=== PATIENT | female | born 1950 ===

== ENCOUNTER 2017-09-17 18:06 | Emergency (ER) | payer MEDICARE ==
[2017-09-17 18:16] VITALS: BMI 32.9
[2017-09-17 18:24] VITALS: BP 132/75; PULSE 76; RESP 18; TEMP 97.9; O2SAT 97
--- NOTE | 2017-09-17 18:42 | ED PDOC ---
Arrival/HPI - General Chief Complaint: Abnormal Skin Integrity Time Seen by Provider: 09/17/17 18:37 Historian: Patient, Family - History of Present Illness Narrative History of Present Illness (Text): 09/17/17 18:51 67 yo female come in accompanied by family member for evaluation of itchy, burning rash gradually developed to left chest/shoulder and upper back for past 6 days. As per family, pt was seen in [facility] 6 days ago due to hypoglycemia " and them had few pimples", on discharges received Rx: Hydrocortisone topical oitm and Benadryl without improvement in rash. Today, noted rash spread more over left upper back associated with some neck swelling, also c/o diffuse left sided neck pain Otherwise, pt and family denies fever, chills, severe headache, dizziness, drooling, eye involvement, blurry vision, denies focal deficits, CP, SOB, dyspnea, diaphoresis, abd. pain, N/V/D, denies any other active complaints. Ambulate to Ed for evaluation, appears in pain. Time/Duration: < week Past Medical History - Provider Review Nursing Documentation Reviewed: Yes - Travel History Have you recently traveled outside [place] w/in the past 3 mons?: No If Yes, travel location?: [facility] [place] - Infectious Disease Hx of Infectious Diseases: None - Tetanus Immunization Tetanus Immunization: Unknown - Cardiac Hx Cardiac Disorders: Yes Hx Hypertension: Yes - Pulmonary Hx Respiratory Disorders: No - Neurological Hx Neurological Disorder: No - HEENT Hx HEENT Disorder: No - Renal Hx Renal Disorder: No - Endocrine/Metabolic Hx Endocrine Disorders: Yes Hx Diabetes Mellitus Type 2: Yes (iddm) - Hematological/Oncological Hx Blood Disorders: No - Integumentary Hx Dermatological Disorder: No - Musculoskeletal/Rheumatological Hx Musculoskeletal Disorders: No - Gastrointestinal Hx Gastrointestinal Disorders: No - Genitourinary/Gynecological Hx Genitourinary Disorders: No - Psychiatric Hx Psychophysiologic Disorder: No Hx Substance Use: No - Surgical History Other/Comment: unknown surgery - Anesthesia Hx Anesthesia: Yes Hx Anesthesia Reactions: No - Suicidal Assessment Feels Threatened In Home Enviroment: No Family/Social History - Physician Review Nursing Documentation Reviewed: Yes Family/Social History: No Known Family HX Smoking Status: Never Smoked Hx Alcohol Use: No Hx Substance Use: No Hx Substance Use Treatment: No Allergies/Home Meds Allergies/Adverse Reactions: Allergies No Known Allergies Allergy (Verified 09/17/17 18:16) Home Medications: Home Meds Medication Instructions Recorded Confirmed Carvedilol [Coreg] 6.25 mg PO BID 02/21/16 09/17/17 Glimepiride [amaRYL] 4 mg PO DAILY 02/21/16 09/17/17 Losartan/Hydrochlorothiazide 1 tab PO DAILY 02/21/16 09/17/17 [Losartan Potassium-Hydrochlorothiazide 12.5 M] Furosemide [Lasix] 40 mg PO DAILY 09/17/17 09/17/17 Gabapentin [Neurontin] 100 mg PO BID 09/17/17 09/17/17 Hydroxyzine HCl [Hydroxyzine HCl] 25 mg PO Q8H 09/17/17 09/17/17 Insulin Aspart, Recombinant 0 units SC TID 09/17/17 09/17/17 [Novolog] Omeprazole [Omeprazole] 20 mg PO DAILY 09/17/17 09/17/17 Potassium Chloride [Klor-Con] 20 meq PO DAILY 09/17/17 09/17/17 Review of Systems - Review of Systems Constitutional: Normal Eyes: Normal ENT: Normal Respiratory: Normal Cardiovascular: Normal Gastrointestinal: Normal Genitourinary Female: Normal Musculoskeletal: Normal Skin: Rash Neurological: Normal Endocrine: Normal Hemo/Lymphatic: Adenopathy Psychiatric: Normal Physical Exam Vital Signs Temp Pulse Resp BP Pulse Ox 09/17/17 18:23 97.9 F 76 18 132/75 97 Temperature: Afebrile Blood Pressure: Normal Pulse: Regular Respiratory Rate: Normal Appearance: Positive for: Well-Appearing, Non-Toxic, Uncomfortable Pain Distress: Moderate (pain) Mental Status: Positive for: Alert and Oriented X 3 - Systems Exam Head: Present: Normocephalic Pupils: Present: PERRL Conjunctiva: Present: Normal Ears: Present: NORMAL TM, Normal Canal Mouth: Present: Moist Mucous Membranes, Normal Lips. No: Drooling, Trismus Pharnyx: No: ERYTHEMA, EXUDATE Nose (External): Present: Atraumatic Nose (Internal): Present: Normal Inspection Neck: Present: Trachea Midline. No: JVD, Bruit Respiratory/Chest: Present: Clear to Auscultation, Good Air Exchange. No: Respiratory Distress, Accessory Muscle Use Cardiovascular: Present: Regular Rate and Rhythm, Normal S1, S2. No: Murmurs Abdomen: Present: Normal Bowel Sounds. No: Tenderness, Distention, Peritoneal Signs, Rebound, Guarding Back: No: CVA Tenderness Upper Extremity: Present: Normal ROM. No: Tenderness, Swelling, Deformity Lower Extremity: Present: Normal ROM. No: Edema, Deformity Neurological: Present: GCS=15, Speech Normal, Motor Func Grossly Intact, Normal Sensory Function, Normal Cerebellar Funct, Norm Deep Tendon Reflexes Skin: Present: Warm, Dry, Rashes, Normal Color, Other (maculopapular and vesicular rash on erythematous base, different stages, over Left anterior chest/ shoulder/upper back overlying C7-T1 dermatome, does not cross midline. No evidence of superimposed infection. No cellulitis or mod edema.) Lymphatic: Present: Cervical Adenopathy (Left) Psychiatric: Present: Alert, Oriented x 3, Normal Insight, Normal Concentration Medical Decision Making ED Course and Treatment: 09/17/17 19:05 On re-evaluation, pt is afebrile, hemodynamicaly stable. non-toxic. Tolerate PO well in ED. PulsEOx 97% RA FSBS 204 ENT: no acute findings. Eye: no eye involvement noted, no rash/eye discharges/conjunctivitis. No pain or limitation on extraocular movement. Neck: Supple, (-) JVD, (-) carotid bruits B/L. Lungs: CTA B/L, Bs equal B/L. CVS: (+)S1S2, reg. Abd: benign. Skin: exam c/w Left H.Zoster affecting C7-T1 dermatome, no evidence of superimposed infection. NO cellulitis. Pt and family advised on course of ds. ref. to f/u with PMD in 1-2 days for re-eval. return to ED if any worsening or new changes. - Lab Interpretations Lab Results: Lab Results 09/17/17 18:41: POC Glucose (mg/dL) 204 H - Medication Orders Current Medication Orders: Discontinued Medications Acyclovir (Zovirax) 800 mg PO STAT STA PRN Reason: Protocol Stop: 09/17/17 18:47 Last Admin: 09/17/17 18:56 Dose: 800 mg Gabapentin (Neurontin) 300 mg PO STAT TL PRN Reason: Protocol Last Admin: 09/17/17 19:23 Dose: 300 mg Prednisone (Prednisone Tab) 60 mg PO STAT STA Stop: 09/17/17 18:48 Last Admin: 09/17/17 18:56 Dose: 60 mg Tramadol HCl (Ultram) 50 mg PO STAT STA Stop: 09/17/17 18:46 Last Admin: 09/17/17 18:56 Dose: 50 mg MAR Pain Assessment Document 09/17/17 18:56 HP (Rec: 09/17/17 18:56 HP [id number]) Pain Reassessment Is this a pain reassessment? No Disposition/Present on Arrival - Present on Arrival Any Indicators Present on Arrival: No History of DVT/PE: No History of Uncontrolled Diabetes: No Urinary Catheter: No History of Decub. Ulcer: No History Surgical Site Infection Following: None - Disposition Have Diagnosis and Disposition been Completed?: Yes Diagnosis: Herpes zoster Disposition: HOME/ ROUTINE Disposition Time: 19:11 Patient Plan: Discharge Condition: STABLE Discharge Instructions (ExitCare): Shingles (ED) Print Language: SOUTH SUDANESE Additional Instructions: ENCOURAGE FLUIDS TAKE MEDICATION PRESCRIBED GABAPENTIN PRESCRIBED FOLLOW UP WITH PMD IN 2 DAYS FOR RE-EVALUATION. RETURN TO ED IF ANY WORSENING OR NEW CHANGES. Prescriptions: Bacitracin OINT 1 applic TP BID #1 tube Prednisone [Deltasone] 40 mg PO DAILY #6 tablet traMADol [Ultram] 50 mg PO TID #10 tab Valacyclovir HCl [Valacyclovir HCl] 1,000 mg PO TID #42 tab Referrals: Cornelius Epstein MD [Primary Care Provider] - Follow up with primary Forms: [facility] (Turkmen)
== END 2017-09-17 19:24 | disposition home or self-care (01) ==
LOC: ED 18:06
DX: B02.9 Zoster without complications (principal)

== ENCOUNTER 2018-08-09 16:34 | Inpatient (IN) | payer MEDICARE, OTHER ==
[2018-08-09 16:57] VITALS: BMI 34.7
--- NOTE | 2018-08-09 17:59 | ED PDOC ---
Arrival/HPI - General Chief Complaint: Headache Time Seen by Provider: 08/09/18 16:51 Historian: Patient, Family, Lead Front Desk Agent - History of Present Illness Narrative History of Present Illness (Text): 08/09/18 17:55 Patient is a 68 yo female, past medical history of hypertension, diabetes, chronic kidney disease, anemia, shingles, presents to the Emergency Department with right sided "body" pain for past three weeks. Patient states she began to experience pain to her right leg, right side of abdomen and chest, right arm, right sided headache 3 weeks ago, gradual onset. No associated injury. No fevers. No chills. No rash. States that pain worsened last night before midnight and she has pain with any walking or ambulation. Patient and deny any new facial droop, deny any speech changes and deny any history of altered mental status. Patient denies weakness, states that she has difficulty ambulating due to the pain. crane rigger present for history and physical , Nona Staples RN. Past Medical History - Infectious Disease Hx of Infectious Diseases: None - Tetanus Immunization Tetanus Immunization: Unknown - Reproductive Menopause: Yes - Cardiac Hx Hypertension: Yes - Pulmonary Hx Respiratory Disorders: No - Neurological Hx Neurological Disorder: No - HEENT Hx HEENT Disorder: No - Renal Hx Renal Disorder: No - Endocrine/Metabolic Hx Diabetes Mellitus Type 2: Yes - Hematological/Oncological Hx Blood Disorders: No - Integumentary Hx Dermatological Disorder: No - Musculoskeletal/Rheumatological Hx Falls: No - Gastrointestinal Hx Gastrointestinal Disorders: No - Genitourinary/Gynecological Hx Genitourinary Disorders: No - Psychiatric Hx Psychophysiologic Disorder: No Hx Substance Use: No - Surgical History Other/Comment: unknown surgery - Anesthesia Hx Anesthesia: Yes Hx Anesthesia Reactions: No - Suicidal Assessment Feels Threatened In Home Enviroment: No Family/Social History Smoking Status: Never Smoked Hx Alcohol Use: No Hx Substance Use: No Hx Substance Use Treatment: No Allergies/Home Meds Allergies/Adverse Reactions: Allergies No Known Allergies Allergy (Verified 08/09/18 16:51) Home Medications: Home Meds Medication Instructions Recorded Confirmed Carvedilol [Coreg] 6.25 mg PO BID 09/21/17 08/09/18 Fenofibrate [Fenoglide] 60 mg PO DAILY 09/21/17 08/09/18 Gabapentin [Neurontin] 100 mg PO BID 09/21/17 08/09/18 Labetalol Hydrochloride [Normodyne] 300 mg PO BID 09/21/17 08/09/18 Omeprazole 20 mg PO DAILY 09/21/17 08/09/18 Potassium Chloride [K-Dur 20] 20 meq PO DAILY 09/22/17 08/09/18 Review of Systems - Review of Systems Constitutional: absent: Fatigue, Fevers Eyes: absent: Vision Changes, Eye Pain ENT: absent: Hearing Changes, Sore Throat, Epistaxis, Sinus Congestion Respiratory: absent: SOB, Cough Cardiovascular: Other (right sided pain). absent: Edema, Calf Pain, [place] Gastrointestinal: Abdominal Pain. absent: Nausea, Vomiting, Appetite Changes, Food Intolerance Genitourinary Female: absent: Dysuria, Frequency Musculoskeletal: Back Pain, Neck Pain Skin: absent: Rash, Cellulitis Neurological: Headache, Gait Changes. absent: Dizziness, Focal Weakness Endocrine: absent: Polyuria Hemo/Lymphatic: absent: Easy Bleeding Psychiatric: absent: Anxiety Physical Exam Vital Signs Reviewed: Yes Vital Signs Temp Pulse Resp BP Pulse Ox 08/09/18 19:54 222/71 H 08/09/18 18:51 74 18 187/72 H 97 08/09/18 16:35 97.7 F 76 18 196/76 H 98 Temperature: Afebrile Blood Pressure: Hypertensive Pulse: Regular Appearance: Positive for: Uncomfortable Pain Distress: Mild Mental Status: Positive for: Alert and Oriented X 3 Finger Stick Blood Glucose: 294 - Systems Exam Head: Present: Atraumatic, Other (facial asymmetry noted although patient and states normal for patient) Pupils: Present: PERRL Extroacular Muscles: Present: EOMI Conjunctiva: No: Injected Ears: No: Erythema Mouth: Present: Moist Mucous Membranes Pharnyx: No: ERYTHEMA, EXUDATE, Muffled/Hoarse Voice, Strider Nose (Internal): Present: Normal Inspection, No Active Bleeding Neck: Present: Normal Range of Motion, Paraspinal Tenderness. No: Meningeal Signs Respiratory/Chest: Present: Clear to Auscultation, Tender to Palpation. No: Respiratory Distress Cardiovascular: Present: Regular Rate and Rhythm, Murmurs Abdomen: Present: Tenderness (mild right sided abdominal discomfort, no rebound or guarding), Normal Bowel Sounds. No: Distention, Peritoneal Signs Back: Present: Paraspinal Tenderness. No: CVA Tenderness Upper Extremity: Present: Other (no pain with ROM of shoulder, elbow or wrist, no pulse deficits or edema). No: Cyanosis, Edema Lower Extremity: Present: Edema, Other (pain at hip with ROM of hip, no knee or ankle pain, there is positive right calf pain). No: CALF TENDERNESS Neurological: Present: Motor Func Grossly Intact, Normal Sensory Function, Other (no acute facial droop). No: Gait Normal Skin: Present: Warm. No: Rashes (NO VESICULAR RASH) Lymphatic: No: Cervical Adenopathy Psychiatric: Present: Alert, Normal Insight, Normal Concentration Medical Decision Making ED Course and Treatment: Patient seen and examined with crane rigger, Nona SAUCEDA. Patient on exam has pain with palpation of right sided, but not one focal area is noted to be triggering she has diffuse pain with NO ASSOCIATED WEAKNESS CURRENTLY but limits her ambulation. No trauma. No fever. No joint swelling noted. No rash. No vesicular lesions. She has no chest pain or shortness of breath with exertion. No acute facial droop. Given localized right sided pain ct head orered: 08/09/18 19:08 EXAM: CT Head Without Intravenous Contrast Dictated and Authenticated by: Tyler Arellano MD 08/09/2018 6:42 PM Eastern Time ([place]) IMPRESSION: Normal head/brain CT. Prior CT reviewed from prior admission. CT abdomen pelvis and chest ordered. EXAM: CT Abdomen and Pelvis Without Intravenous Contrast Dictated and Authenticated by: Tyler Arellano MD 08/09/2018 7:41 PM Eastern Time ([place]) IMPRESSION: Air pockets in are identified within the urinary bladder. In the absence of recent instrumentation, UTI with gas-forming organisms cannot be excluded. Otherwise, no acute findings within the abdomen and pelvis. Incidental, surgical, and other non-acute findings are described above. EXAM: CT Chest Without Intravenous Contrast Dictated and Authenticated by: Tyler Arellano MD 08/09/2018 7:41 PM Eastern Time ([place]) IMPRESSION: No acute findings or significant abnormalities within the chest. Incidental and other non-acute findings are described above. On re-exam she is afebrile, cv stable. Cr elevated from previous visit. IV fluids ordered. No active bleeding noted. UTI noted. Given CT findings, will initiate iv antibiotics, admit for serial exams. Will admit to telemetry bed given hypertension. Clonidine ordered. 08/09/18 20:15: Patient states that her PMD is Dr. Cornelius Epstein ([place]) , thus we will admit to classification clerk physician, Dr. Thao, who accepts patient to her service. - Lab Interpretations Lab Results: 08/09/18 15:50 08/09/18 15:50 Lab Results 08/09/18 18:30: pO2 197 H, VBG pH 7.38, VBG pCO2 47.0, VBG HCO3 27.8, VBG Total CO2 29.2 H, VBG O2 Sat (Calc) 99.4 H, VBG Base Excess 2.0, VBG Potassium 4.1, Glucose 287 H, Lactate 1.1, FiO2 21.0, Sodium 141.0, Chloride 112.0 H, Venous Blood Potassium 4.1 08/09/18 18:20: Urine Color Light yellow, Urine Appearance Slight-cloudy, Urine pH 7.0, Ur Specific [place] 1.020, Urine Protein >=300 H, Urine Glucose (UA) 500 H, Urine Ketones Negative, Urine Blood Small H, Urine Nitrate Negative, Urine Bilirubin Negative, Urine Urobilinogen 0.2, Ur Leukocyte Esterase Small H , Urine RBC 1 - 3, Urine WBC Tntc, Ur Epithelial Cells 0 - 2, Urine Bacteria Large 08/09/18 17:32: POC Glucose (mg/dL) 294 H 08/09/18 15:50: Sodium 142, Potassium 3.8, Chloride 107, Carbon Dioxide 26, Anion Gap 12, BUN 44 H, Creatinine 2.1 H, Est GFR ( Amer) 28, Est GFR ( Non-Af Amer) 23, Random Glucose 270 H, Calcium 9.0, Magnesium 1.9, Total Bilirubin 0.2, AST 41 H D, ALT 23, Alkaline Phosphatase 122, Lactate Dehydrogenase 742 H, Total Creatine Kinase 93, Troponin I 0.03 D, Total Protein 6.6, Albumin 3.4, Globulin 3.3, Albumin/Globulin Ratio 1.0 L 08/09/18 15:50: PT 10.8, INR 0.95, APTT 28.1 08/09/18 15:50: WBC 7.9, RBC 3.23 L, Hgb 10.0 L, Hct 30.5 L, MCV 94.4 D, MCH 31.0, MCHC 32.8, RDW 12.9, Plt Count 400, MPV 10.7, Gran % 60.2, Lymph % (Auto) 29.9, [place] % (Auto) 6.0, Eos % (Auto) 3.6, Baso % (Auto) 0.3, Gran # 4.75, Lymph # (Auto) 2.4, [place] # (Auto) 0.5, Eos # (Auto) 0.3, Baso # (Auto) 0.02 - RAD Interpretation Radiology Orders: 08/09/18 17:15 HEAD W/O CONTRAST [CT] Stat CHEST ONE VIEW [RAD] Stat 08/09/18 18:05 CHEST,ABDOMEN, PELVIS W/O CONT [CT] Stat DUPLEX LOWER EXTRM VEIN BILAT [US] Stat 08/09/18 20:04 Hip Right [HIP MIN 2V W/ PELVIS RT] [RAD] Stat 08/09/18 20:05 LS SPINE WITH OBL > 18 YRS OLD [RAD] Stat - EKG Interpretation EKG Interpretation (Text): 08/09/18 18:03 EKG at 1728 normal sinus rhythm rate of [address] elevations Interpreted by ED Physician: Yes Type: 12 lead EKG - Medication Orders Current Medication Orders: Cefepime HCl (Maxipime 2gm) 2 gm in 100 mls @ 100 mls/hr IVPB STAT STA PRN Reason: Protocol Stop: 08/09/18 20:56 Sodium Chloride (Sodium Chloride 0.9%) 1,000 mls @ 100 mls/hr IV .Q10H TL Discontinued Medications Clonidine HCl (Catapres) 0.2 mg PO ONCE STA Stop: 08/09/18 20:08 Disposition/Present on Arrival - Present on Arrival Any Indicators Present on Arrival: Yes History of DVT/PE: No History of Uncontrolled Diabetes: Yes Urinary Catheter: No History of Decub. Ulcer: No History Surgical Site Infection Following: None - Disposition Have Diagnosis and Disposition been Completed?: Yes Diagnosis: Urinary tract infection, Abdominal pain, Leg pain, right, Renal insufficiency, Hypertension Disposition: HOSPITALIZED Disposition Time: 20:03 Patient Plan: Admission Patient Problems: Current Active Problems Problem Status Onset Abdominal pain Acute Hypertension Acute Leg pain, right Acute Renal insufficiency Acute Urinary tract infection Acute Condition: FAIR Referrals: Cornelius Epstein MD [Primary Care Provider] - Follow up with primary Forms: [employer] ([place])
[2018-08-09 18:25] LABS: BASO # 0.02 K/mm3 (0.0-2.0); BASO % 0.3 % (0.0-3.0); EOS # 0.3 (0.0-0.7); EOS % 3.6 % (1.5-5.0); GRAN # 4.75 (1.4-6.5); GRAN % 60.2 % (50.0-68.0); LYMPH # 2.4 (1.2-3.4); LYMPH % 29.9 % (22.0-35.0); MEAN CELL VOLUME 94.4 fl (80.0-105.0); MEAN CORPUSCULAR HGB CONC 32.8 g/dl (31.0-37.0); MEAN PLATELET VOLUME 10.7 fl (7.0-11.0); MONO # 0.5 (0.1-0.6); RBC 3.23 10^6/uL (3.5-6.1); RED CELL DISTRIBUTION WIDTH 12.9 % (11.5-14.5); WHITE BLOOD COUNT 7.9 10^3/ul (4.5-11.0)
[2018-08-09 18:27] LABS: URINE APPEARANCE SLIGHT-CLOUDY (CLEAR); URINE BILIRUBIN NEGATIVE (NEGATIVE); URINE BLOOD SMALL (NEGATIVE); URINE COLOR LIGHT YELLOW (YELLOW); URINE GLUCOSE (UA) 500 mg/dL (NEGATIVE); URINE LEUKOCYTE ESTERASE SMALL Leu/uL (NEGATIVE); URINE PROTEIN >=300 mg/dL (<30 mg/dL); URINE UROBILINOGEN 0.2 E.U./dL (<1 E.U./dL)
[2018-08-09 18:32] LABS: INR 0.95; PARTIAL THROMBOPLASTIN TIME 28.1 Seconds (25.1-36.5); PROTHROMBIN TIME 10.8 SECONDS (9.4-12.5)
[2018-08-09 18:37] LABS: URINE BACTERIA LARGE (NEG); URINE EPITHELIAL CELLS 0 - 2 /hpf (0-5); URINE WBC TNTC /hpf (0-6)
[2018-08-09 19:00] LABS: ALBUMIN 3.4 g/dL (3.0-4.8)
[2018-08-09 19:11] LABS: TROPONIN I 0.03 ng/mL
[2018-08-09 19:18] LABS: VENOUS BLOOD GAS PO2 197 mm/Hg (30-55); VENOUS BLOOD PH 7.38 (7.32-7.43)
[2018-08-09] MEDS ORDERED: Cefepime IV 2 gm in NS 2 GM/100 ML BAG IVPB STA (19:57)
[2018-08-09] MEDS ORDERED: Oxycodone/Acetaminophen 5/325 mg Tab PO STA (20:26)
[2018-08-09] MEDS ORDERED: Insulin Regular 1 UNITS/0.01 ML ML ONE (21:46)
[2018-08-09] MEDS: Insulin Reg-MEDIUM-Coverage SC SCH (21:47)
[2018-08-09] MEDS ORDERED: Pneumococcal 23-Valent Vaccine IM ONE (22:28)
[2018-08-09] MEDS: Sodium Chloride 0.9% 1,000 ML IV SCH (23:45)
[2018-08-10 06:53] LABS: BASO # 0.02 K/mm3 (0.0-2.0); BASO % 0.3 % (0.0-3.0); EOS # 0.2 (0.0-0.7); EOS % 3.4 % (1.5-5.0); GRAN # 3.26 (1.4-6.5); GRAN % 50.9 % (50.0-68.0); HEMOGLOBIN 8.4 g/dL (12.0-16.0); LYMPH # 2.4 (1.2-3.4); LYMPH % 37.4 % (22.0-35.0); MEAN CELL VOLUME 94.1 fl (80.0-105.0); MEAN CORPUSCULAR HEMOGLOBIN 30.8 pg (25.0-35.0); MEAN CORPUSCULAR HGB CONC 32.7 g/dl (31.0-37.0); MEAN PLATELET VOLUME 10.4 fl (7.0-11.0); MONO # 0.5 (0.1-0.6); RBC 2.73 10^6/uL (3.5-6.1); RED CELL DISTRIBUTION WIDTH 13.1 % (11.5-14.5); WHITE BLOOD COUNT 6.4 10^3/ul (4.5-11.0)
[2018-08-10 07:18] LABS: ALB/GLOB RATIO 0.9 (1.1-1.8); ALBUMIN 2.6 g/dL (3.0-4.8); CALCIUM 8.2 mg/dL (8.4-10.5)
--- NOTE | 2018-08-10 08:13 | HP ---
ADMISSION NOTE HISTORY OF PRESENT ILLNESS: Ms. Stern is a 68-year-old female, presented to the ED with right-sided leg pain, abdominal pain, chest pain. She also developed right-sided headache 3 weeks ago. Facial droop was noted on one side, but denies any recent change. No weakness. She has difficulty nebulizing due to pain. CT chest, abdomen, pelvis showed gas pockets in the bladder leading to possibility of UTI. CT chest without contrast was negative. No fever. No cough with expectoration. PAST MEDICAL HISTORY: Hypertension, diabetes mellitus type 2. PAST SURGICAL HISTORY: None. PERSONAL HISTORY: Never smoked. No history of alcohol abuse. FAMILY HISTORY: Noncontributory. SOCIAL HISTORY: Lives at home. ALLERGIES: NO KNOWN DRUG ALLERGIES. HOME MEDICATIONS: Coreg 6.25 mg p.o. b.i.d., fenofibrate 60 mg daily, Neurontin 100 mg p.o. b.i.d., labetalol 300 mg p.o. b.i.d., omeprazole 20 mg daily, K-dur 20 mEq daily. REVIEW OF SYSTEMS: As per HPI. Rest of 12-point review of systems reviewed negative. PHYSICAL EXAMINATION: GENERAL: Comfortable in bed, in no acute distress. VITAL SIGNS: Temperature 97.7, heart rate is 76 per minute, respiratory rate 18 per minute, blood pressure 180/72 on admission, pulse ox is 97% on room air. HEENT: Pallor positive. NECK: No lymphadenopathy. CHEST: Air entry present and equal, bilateral. No added sounds. CARDIOVASCULAR: S1, S2 normal. No murmur. No gallop. ABDOMEN: Soft, nontender. No hepatosplenomegaly. EXTREMITIES: No edema. [place] MATE: Alert and oriented x3. No focal sensorimotor deficits. CT chest, abdomen and pelvis as per HPI. CT head without contrast, no acute findings. LABORATORY DATA: White count 7.9, hemoglobin 10, hematocrit 30.5, platelet 400. Sodium 142, potassium 3.8, BUN 44, creatinine 2.1, . ASSESSMENT: 1. Uncontrolled hypertension. 2. Anemia. 3. Chronic kidney disease. 4. Abdominal pain. 5. Right leg pain. 6. Urinary tract infection. PLAN: She will be admitted to the hospital on tele monitoring. She received a dose of cefepime in the ER. UA positive. Urine culture sent. We will give her ceftriaxone today and continue daily. ID consultation, Dr. Martin requested. Continue Neurontin 300 mg p.o. t.i.d., insulin as per sliding scale, labetalol 300 mg p.o. b.i.d, Cozaar 100 mg daily, fenofibrate 60 mg daily, IV fluid at 100 mL an hour. If oral intake improves, we will discontinue the IV fluids. Blood pressure better controlled. Current blood pressure is 128/57. Labs show severe anemia; hemoglobin 8.4, declined from 10. Creatinine elevated at 2.4. Anemia multifactorial, might have iron deficiency. May be related to chronic kidney disease. We will send the iron studies, B12, folate. She might need erythropoietin supports to maintain normal hemoglobin. Corinne Lovelace MD
[2018-08-10] MEDS: Insulin Reg-MEDIUM-Coverage SC SCH ×4 (09:06→21:55)
[2018-08-10] MEDS ORDERED: cefTRIAXone 1 gm 1 GM/100 ML BAG IVPB SCH (10:00)
--- NOTE | 2018-08-10 10:12 | CT ---
Date of service: 08/09/2018 PROCEDURE: CT HEAD WITHOUT CONTRAST. HISTORY: right sided headache, htn COMPARISON: 11/14/2016 TECHNIQUE: Axial computed tomography images were obtained through the head/brain without intravenous contrast. Radiation dose: Total exam DLP = 938.98 mGy-cm. This CT exam was performed using one or more of the following dose reduction techniques: Automated exposure control, adjustment of the mA and/or kV according to patient size, and/or use of iterative reconstruction technique. FINDINGS: HEMORRHAGE: No intracranial hemorrhage. BRAIN: No mass effect or edema. No atrophy or chronic microvascular ischemic changes. VENTRICLES: Unremarkable. No hydrocephalus. CALVARIUM: Unremarkable. PARANASAL SINUSES: Unremarkable as visualized. No significant inflammatory changes. MASTOID AIR CELLS: Unremarkable as visualized. No inflammatory changes. OTHER FINDINGS: None. IMPRESSION: Normal CT of the Head. No intracranial mass, hemorrhage or evidence of acute infarct. The preliminary findings for this examination were reported by [facility] at 6:42 p.m. on 08/09/2018. There is concurrence of this report with the preliminary findings.
--- NOTE | 2018-08-10 10:30 | CT ---
Date of service: 08/09/2018 PROCEDURE: CT Chest, Abdomen and Pelvis without intravenous contrast HISTORY: severe right sided pain COMPARISON: None available. TECHNIQUE: Radiation dose: Total exam DLP = 1425.30 mGy-cm. This CT exam was performed using one or more of the following dose reduction techniques: Automated exposure control, adjustment of the mA and/or kV according to patient size, and/or use of iterative reconstruction technique. FINDINGS: CT CHEST WITHOUT CONTRAST: LUNGS: No infiltrate. Mild linear pleural-based scar in right upper lobe. Mild nonspecific mosaic attenuation pattern. No pulmonary mass MEDIASTINUM: Unremarkable. Normal caliber aorta and pulmonary arterial trunk. Minimal cardiomegaly. Trace pericardial effusion. Nonspecific.. LYMPH NODES: Unremarkable. PLEURA: Unremarkable. No pneumothorax. No pleural fluid. BONES: Unremarkable. OTHER FINDINGS: None. CT ABDOMEN AND PELVIS: LIVER: Unremarkable. No gross lesion or ductal dilatation. GALLBLADDER AND BILE DUCTS: Unremarkable. PANCREAS: Unremarkable. No gross lesion or ductal dilatation. SPLEEN: Unremarkable. ADRENALS: Unremarkable. No mass. KIDNEYS AND URETERS: Unremarkable. No hydronephrosis. No solid mass. VASCULATURE: Unremarkable. No aortic aneurysm. BOWEL: Unremarkable. No obstruction. No gross mural thickening. APPENDIX: Normal appendix. PERITONEUM: Small paraumbilical hernia containing only mesenteric fat. No herniated bowel. LYMPH NODES: Unremarkable. No enlarged lymph nodes. BLADDER: Gas within bladder possibly due to instrumentation. Please correlate. REPRODUCTIVE: Normal uterus. BONES: No acute fracture. OTHER FINDINGS: None. IMPRESSION: Nonspecific mosaic attenuation of the lungs. No acute abnormality. Gas within urinary bladder likely due to catheterization/instrumentation. Please correlate. Small paraumbilical fat containing hernia. Mild cardiomegaly. Otherwise unremarkable. The preliminary findings for this examination were reported by [facility] at 7:41 p.m. on 08/09/2018. There is concurrence of this report with the preliminary findings.
--- NOTE | 2018-08-10 13:11 | RAD ---
PROCEDURE: Right Hip Radiographs. HISTORY: hip pain COMPARISON: None. FINDINGS: BONES: Normal. No fracture. JOINTS: Normal. SOFT TISSUES: Normal. OTHER FINDINGS: None. IMPRESSION: Normal radiographs of right hip.
--- NOTE | 2018-08-10 13:12 | RAD ---
Date of service: 08/09/2018 PROCEDURE: Radiographs of the Lumbar Spine. HISTORY: right sided pain COMPARISON: No prior. FINDINGS: BONES: Normal alignment. No listhesis. No fracture. DISC SPACES: Narrowing of L5-S1 disc space with osteophytes, consistent with degenerative disc disease. Remaining intervertebral disc spaces maintained in height. OTHER FINDINGS: None. IMPRESSION: Mild degenerative disc disease at L5-S1. No fracture/dislocation.
[2018-08-10] MEDS: Cefepime 1gm in NS 100ml 1 GM/100 ML BAG IVPB SCH ×2 (13:29→21:31)
--- NOTE | 2018-08-10 14:03 | CARD ---
APPROVED REPORT Date of service: 08/09/2018 EKG Measurement Heart [id number] <Conclusion> Poor data quality, interpretation may be adversely affected Normal sinus rhythm Normal ECG
--- NOTE | 2018-08-10 16:56 | RAD ---
Date of service: 08/09/2018 PROCEDURE: CHEST RADIOGRAPH, 1 VIEW HISTORY: right sided pain COMPARISON: 09/19/2017 FINDINGS: LUNGS: Linear scar in right lung apex. No infiltrate. PLEURA: No pneumothorax or pleural fluid seen. CARDIOVASCULAR: Normal. OSSEOUS STRUCTURES: No significant abnormalities. VISUALIZED UPPER ABDOMEN: Normal. OTHER FINDINGS: None. IMPRESSION: No active disease.
[2018-08-10] MEDS: FENOFIBRATE PO SCH (17:12)
[2018-08-10] MEDS: Sodium Chloride 0.9% 1,000 ML IV SCH ×2 (17:24)
--- NOTE | 2018-08-10 23:07 | CON ---
DATE: 08/10/2018 LOCATION: The patient is seen in room 265, bed 1. CHIEF COMPLAINT: The patient came in with headaches for several days. HISTORY OF PRESENT ILLNESS: This is a 68-year-old female with a history of hypertension, diabetes, kidney disease, anemia, history of shingles, admitted for the aches and pains past 3 weeks and headaches. The patient states that she is experiencing a right leg pain and right side chest pain and weakness. Infectious Disease consultation requested for possible urinary tract infection. REVIEW OF SYSTEMS: Reveals a 12-point review systems is performed. The patient denies any dysuria or frequency; however, she states she has a right-sided flank pain and there has been no fevers and no chills, no chest pain now, no headaches, no diarrhea or constipation. PAST MEDICAL HISTORY: Significant for hypertension, diabetes, anemia, shingles, kidney disease, obesity with BMI of 31, left mastoiditis, MRSE and Enterobacter bacteremia, and zoster. PAST SURGICAL HISTORY: Significant for left shoulder surgery in 2017, a cholecystectomy, and a spinal surgery. ALLERGIES: THE PATIENT HAS NO KNOWN ALLERGIES. MEDICATIONS AT HOME: Reviewed include omeprazole, Neurontin, Coreg, fenofibrate. PHYSICAL EXAMINATION: VITAL SIGNS: The patient is in bed with a temperature of 97, blood pressure is 128/50, respiratory rate of 20, heart rate of 58, it was up to 94. HEENT: Unremarkable. NECK: Supple. LUNGS: Have decreased breath sounds. HEART: Normal S1 and S2. ABDOMEN: Soft, nontender. No rebound or guarding. There is a right CVA tenderness. NEUROLOGIC: The patient is awake and alert. LABORATORY DATA: Reveals a white count of 7.9, hemoglobin of 10, platelets of 400. Coagulation is noted. Chemistry reveals a BUN of 44, creatinine is 2.1 - in 2017, the patient's creatinine was 1.2. Urinalysis reveals too numerous to count wbc's, large bacteria, there is proteinuria, there is small leukocyte esterase. The urine culture and blood cultures are sent. The patient had a CAT scan of the chest and abdomen, which reveals; there is no infiltrate, unremarkable kidney, unremarkable gallbladder since she has had a cholecystectomy; however, it was done without any contrast. Urinary bladder has gas. ASSESSMENT AND PLAN: A 68-year-old female with obesity with a body mass index of 34, diabetes, hypertension, underlying renal disease, history of MRSE and Enterobacter bacteremia, history of zoster, presenting with right flank pain, positive urinalysis, tachycardia. Right pyelonephritis with acute kidney injury, change of creatinine from 1.2 to 2.1. We will treat with Maxipime 1 g IV every 12 hours, pending blood culture and urine culture results. Renal evaluation. We will follow closely with you. Nicolas Martin MD
[2018-08-11] MEDS: Insulin Reg-MEDIUM-Coverage SC SCH ×4 (07:53→22:37)
[2018-08-11] MEDS: Cefepime 1gm in NS 100ml 1 GM/100 ML BAG IVPB SCH ×2 (09:04→21:37)
[2018-08-11] MEDS: FENOFIBRATE PO SCH (09:06)
--- NOTE | 2018-08-11 09:38 | US ---
HISTORY: Leg pain and swelling. Evaluate for DVT PHYSICIAN(S): Cullen Valverde MD. TECHNIQUE: Duplex sonography and color-flow Doppler with graded compression were used to evaluate the deep venous systems of both lower extremities. FINDINGS: The visualized deep venous systems of both lower extremities are sonographically normal and compressible. Normal wave forms and augmentation are seen. There is no sonographic evidence for deep venous thrombosis in the visualized segments of both lower extremities. IMPRESSION: No sonographic evidence for deep venous thrombosis in the visualized segments of both lower extremities.
[2018-08-11] MEDS ORDERED: Magnesium Citrate Oral SOL (300 ml) PO ONE (11:37)
--- NOTE | 2018-08-11 11:56 | PN ---
DATE: 08/11/2018 SUBJECTIVE: The patient is 68 years old, seen and examined. Complained of constipation. Complained of abdominal discomfort. Complained of right upper and lower quadrant discomfort. No nausea or vomiting. No diarrhea. PHYSICAL EXAMINATION: VITAL SIGNS: She is afebrile, pulse 69, respirations 20, blood pressure 167/64. LUNGS: Bilateral good airflow. No rhonchi or crackle. HEART: S1 and S2 audible. ABDOMEN: Soft, obese. Nontender. No rebound. No guarding. NEUROLOGICAL: The patient is awake, alert, oriented, communicative. EXTREMITIES: Moves all extremity. LABORATORY EXAM: Blood sugar is 139. Blood cultures are negative. Had lumbar C-spine x-ray done that shows degenerative changes at L5-S1. No fracture or dislocation. X-ray of the hip and the pelvis was done. CT scan of the head: No intracranial mass seen. ASSESSMENT: 1. Uncontrolled hypertension. 2. Nonspecific abdominal discomfort, probably secondary to constipation. 3. Probably postherpetic neuralgia. 4. Hypertension. PLAN: I will discontinue IV fluid. Give her magnesium citrate. I will add small dose of Norvasc. Discontinue telemetry. Monitor another 24 hours, possible discharge plan in the a.m. Oral Thao MD
--- NOTE | 2018-08-11 12:37 | CP.PCM.PN ---
Subjective - Date & Time of Evaluation Date of Evaluation: 08/11/18 Time of Evaluation: 10:25 - Subjective Subjective: Comfortable in bed, no fevers, no vomiting. Objective - Vital Signs/Intake and Output Vital Signs (last 24 hours): Temp Pulse Resp BP Pulse Ox 98.1 F 70 20 167/64 H 98 08/11/18 06:00 08/11/18 09:05 08/11/18 06:00 08/11/18 09:05 08/11/18 06:00 Intake and Output: 08/11/18 08/11/18 06:59 18:59 Intake Total 3000 Output Total 550 Balance 2450 - Medications Medications: Current Medications Gabapentin (Neurontin) 300 mg PO TID TL PRN Reason: Protocol Last Admin: 08/11/18 09:06 Dose: 300 mg Sodium Chloride (Sodium Chloride 0.9%) 1,000 mls @ 100 mls/hr IV .Q10H [facility] Last Admin: 08/10/18 17:24 Dose: 100 mls/hr Cefepime HCl (Maxipime 1gm) 1 gm in 100 mls @ 100 mls/hr IVPB Q12 TL PRN Reason: Protocol Stop: 08/19/18 11:46 Last Admin: 08/11/18 09:04 Dose: 100 mls/hr Insulin Human Regular (Humulin R Med) 0 units SC ACHS TL PRN Reason: Protocol Last Admin: 08/11/18 07:53 Dose: Not Given Labetalol HCl (Trandate) 300 mg PO BID [facility] Last Admin: 08/11/18 09:05 Dose: 300 mg Losartan Potassium (Cozaar) 100 mg PO DAILY [facility] Last Admin: 08/11/18 09:06 Dose: 100 mg Fenofibrate [ Fenoglide] 60 Mg ( Home Med) 60 mg PO DAILY [facility] Last Admin: 08/11/18 09:06 Dose: Not Given - Labs Labs: 08/10/18 06:15 08/10/18 06:15 PT 10.8 SECONDS (9.4-12.5) 08/09/18 15:50 INR 0.95 08/09/18 15:50 APTT 28.1 Seconds (25.1-36.5) 08/09/18 15:50 - Constitutional Appears: No Acute Distress, Chronically Ill - Head Exam Head Exam: NORMAL INSPECTION - Respiratory Exam Respiratory Exam: Decreased Breath Sounds - Cardiovascular Exam Cardiovascular Exam: +S1, +S2 - GI/Abdominal Exam GI & Abdominal Exam: Soft. absent: Tenderness Assessment and Plan - Assessment and Plan (Free Text) Plan: Asssessment right pyelonephritis acute renal failure history of herpes zoster on the left chest and shoulder areas history of sepsis secondary to left otomastoiditis history of Methicillin-resistant coagulase negative staph and Enterococci bacteremia HTN DM obesity with BMI 30 chronic renal failure Plan continue Cefepime day 2 pending urine cx; blood cx are negative will continue to monitor clinically follow up plans of Nephrology for the renal failure
[2018-08-12] MEDS: Cefepime 1gm in NS 100ml 1 GM/100 ML BAG IVPB SCH (11:00)
[2018-08-12] MEDS: FENOFIBRATE PO SCH (11:00)
[2018-08-12] MEDS: Insulin Reg-MEDIUM-Coverage SC SCH ×4 (11:30→21:26)
--- NOTE | 2018-08-12 19:55 | CP.PCM.PN ---
Subjective - Date & Time of Evaluation Date of Evaluation: 08/12/18 Time of Evaluation: 11:45 - Subjective Subjective: No fevers, no nausea, had loose BM which is improved today. Objective - Vital Signs/Intake and Output Vital Signs (last 24 hours): Temp Pulse Resp BP Pulse Ox 98.2 F 60 20 148/62 97 08/12/18 14:00 08/12/18 14:00 08/12/18 14:00 08/12/18 14:00 08/12/18 14:00 - Medications Medications: Current Medications Amlodipine Besylate (Norvasc) [address] [facility] Last Admin: 08/12/18 11:00 Dose: 5 mg Gabapentin (Neurontin) [address] [facility]; Protocol Last Admin: 08/12/18 17:20 Dose: 300 mg Meropenem 500 mg/ Sodium (Chloride) 50 mls @ 100 mls/hr IVPB Q12 [facility]; Protocol Stop: 08/19/18 22:01 Insulin Human Regular (Humulin R Med) [address] [facility]; Protocol Last Admin: 08/12/18 17:03 Dose: Not Given Labetalol HCl (Trandate) [address] [facility] Last Admin: 08/12/18 17:19 Dose: 300 mg Losartan Potassium (Cozaar) [address] [facility] Last Admin: 08/12/18 11:00 Dose: 100 mg Fenofibrate [ Fenoglide] 60 Mg ( Home Med) [address] [facility] Last Admin: 08/12/18 11:00 Dose: Not Given - Labs Labs: 08/10/18 06:15 08/10/18 06:15 PT 10.8 SECONDS (9.4-12.5) 08/09/18 15:50 INR 0.95 08/09/18 15:50 APTT 28.1 Seconds (25.1-36.5) 08/09/18 15:50 - Constitutional Appears: Chronically Ill - Respiratory Exam Respiratory Exam: Decreased Breath Sounds - Cardiovascular Exam Cardiovascular Exam: +S1, +S2 - GI/Abdominal Exam GI & Abdominal Exam: Soft. absent: Tenderness Assessment and Plan - Assessment and Plan (Free Text) Plan: Asssessment right pyelonephritis with ESBL E. coli acute renal failure history of herpes zoster on the left chest and shoulder areas history of sepsis secondary to left otomastoiditis history of Methicillin-resistant coagulase negative staph and Enterococci bacteremia HTN DM obesity with BMI 30 chronic renal failure Plan will switch Cefepime to Merrem and should complete 10-14 days of therapy; blood cx are negative will continue to monitor clinically follow up plans of Nephrology for the renal failure
[2018-08-12] MEDS: Meropenem 500 MG in Sodium Chloride 0.9% 50 ML IVPB SCH (21:20)
--- NOTE | 2018-08-12 23:00 | PN ---
DATE: 08/12/2018 SUBJECTIVE: The patient is 68 years old, seen and examined. Still has right-sided upper and lower extremity pain. No fever or chills. No nausea or vomiting. PHYSICAL EXAMINATION: VITAL SIGNS: She is afebrile, pulse 60, respirations 20, blood pressure 148/62. LUNGS: Bilateral good airflow. No rhonchi or crackle. HEART: S1 and S2 audible. ABDOMEN: Soft, obese, nontender. No rebound. No guarding. NEUROLOGICAL: Patient is awake and alert. Able to communicate. LABORATORY EXAM: Blood sugar is 214. Urine culture positive for E. coli ESBL positive. Stool for C. diff is negative. DIAGNOSTIC DATA: X-ray of lumbar spine, hip and pelvis were all unremarkable except mild degenerative changes. ASSESSMENT: 1. History of left-sided shingles with element of postherpetic neuralgia. 2. Generalized osteoarthritis. 3. Extended-spectrum beta-lactamase positive Escherichia coli urinary tract infection. 4. Rxr-[id number] diabetes. 5. Hypertension. 6. Hyperlipidemia. PLAN: We will continue patient on losartan. We will monitor her blood sugar. Patient is on meropenem, gabapentin and labetalol. So we will continue on meropenem. I will order for CBC, CMP, thyroid profile in a.m. Patient has history of chronic anemia. She had colonoscopy done fiver yeas ago but never has endoscopy. I will order for stool for Hemoccult and iron studies and also get GI evaluation. Follow up patient in a.m. Oral Thao MD
[2018-08-13 07:38] LABS: IRON 65 ug/dL (45-180)
[2018-08-13 07:40] LABS: ALBUMIN 2.7 g/dL (3.0-4.8); CALCIUM 8.3 mg/dL (8.4-10.5)
[2018-08-13 07:47] LABS: % IRON SATURATION 16 % (20-55); TOTAL IRON BINDING CAPACITY 406 ug/dL (265-497)
[2018-08-13 07:55] LABS: FREE T4 1.38 ng/dL (0.78-2.19)
[2018-08-13] MEDS: Insulin Reg-MEDIUM-Coverage SC SCH ×4 (08:00→22:10)
[2018-08-13] MEDS: Meropenem 500 MG in Sodium Chloride 0.9% 50 ML IVPB SCH ×2 (10:13→22:10)
[2018-08-13] MEDS: FENOFIBRATE PO SCH (10:14)
[2018-08-13 10:51] LABS: HEMOGLOBIN 8.2 g/dL (12.0-16.0); MEAN CELL VOLUME 95.1 fl (80.0-105.0); MEAN CORPUSCULAR HEMOGLOBIN 30.9 pg (25.0-35.0); MEAN CORPUSCULAR HGB CONC 32.5 g/dl (31.0-37.0); MEAN PLATELET VOLUME 10.9 fl (7.0-11.0); RBC 2.65 10^6/uL (3.5-6.1); RED CELL DISTRIBUTION WIDTH 13.3 % (11.5-14.5); WHITE BLOOD COUNT 6.3 10^3/ul (4.5-11.0)
[2018-08-13] MEDS ORDERED: Bupivacaine 0.5% Inj(30mL) IJ ONE (12:57)
[2018-08-13] MEDS ORDERED: MethylPREDNISolone Depo 40 mg/ml Inj IM ONE (12:57)
--- NOTE | 2018-08-13 15:03 | CP.PCM.CON ---
<KentrellBarron - Last Filed: 08/13/18 15:34> History of Present Illness - History of Present Illness History of Present Illness: Reed Pfeiffer PGY2 Internal Medicine Resident - Consult note for Dr. Narayan GI Service Consult: Anemia HPI: 68 year old female with past medical history of HTN, DM2, obesity who presented to [facility] ED complaining of rigth sided body pain for the past three weeks. She indicates the pain is gradual in onset and unassociated with trauma or injury. She denies numbness or weakness. She reports that the mike worsened over the past 24 hours and is associated with walking. ED reports and indicate no new facial droop, speech changes and deny any history of altered mental status. Patient indicates that she does have abdominal pain associated with eating meals for the past couple weeks. She denies radiation of the pain, hematemesis, dark colored stools. She does report taking Advil 500mg for her degenerative arthritis pain. 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, Thrombectomy of her back SOCHX: Denies tobacco, ETOH, ID ALL: NKDA MEDS: MAR reviewed Review of Systems - Review of Systems All systems: reviewed and no additional remarkable complaints except (as m entioned in HPI) Past Patient History - Infectious Disease Hx of Infectious Diseases: None - Tetanus Immunizations Tetanus Immunization: Unknown - Past Social History Smoking Status: Never Smoked - CARDIAC Hx Cardiac Disorders: Yes Hx Hypercholesterolemia: Yes Hx Hypertension: Yes Hx Peripheral Edema: Yes (ble +1 pitting) Other/Comment: venkatesh 11/22/16 to r/o bacterial endocarditis - PULMONARY Hx Respiratory Disorders: No - NEUROLOGICAL Hx Neurological Disorder: Yes (herpetic neuralgia) - HEENT Hx HEENT Problems: Yes Other/Comment: L otomastoiditis, malignant otitis externa - RENAL Hx Chronic Kidney Disease: Yes - ENDOCRINE/METABOLIC Hx Endocrine Disorders: Yes Hx Diabetes Mellitus Type 2: Yes - HEMATOLOGICAL/ONCOLOGICAL Hx Blood Disorders: Yes Hx Anemia: Yes Hx Shingles: Yes (left chest left shoulder 2017) Other/Comment: sepsis due to left otomastoiditis, hx methicillin-resistant coagulase negative staphylococcus and enterococcus bacteremia - INTEGUMENTARY Hx Dermatological Problems: Yes Other/Comment: multiple fading brown rash to rle and r knee and some to lle, scratch to left knee, healed scars to abd 1 large across abd and 3 smaller dark in color scars to lower abd and right side - MUSCULOSKELETAL/RHEUMATOLOGICAL Hx Musculoskeletal Disorders: Yes Hx Falls: No - GASTROINTESTINAL Hx Gastrointestinal Disorders: Yes (obese) - GENITOURINARY/GYNECOLOGICAL Hx Genitourinary Disorders: No - PSYCHIATRIC Hx Psychophysiologic Disorder: No Hx Substance Use: No - SURGICAL HISTORY Hx Surgeries: Yes Hx Cholecystectomy: Yes Other/Comment: unknown surgery - ANESTHESIA Hx Anesthesia: Yes Hx Anesthesia Reactions: No Meds Allergies/Adverse Reactions: Allergies Allergy/AdvReac Type Severity Reaction Status Date / Time No Known Allergies Allergy Verified 08/09/18 16:51 - Medications Medications: Current Medications Acetaminophen (Tylenol 325mg Tab) 650 mg PO Q6H PRN PRN Reason: Fever >100.4 F Last Admin: 08/13/18 03:58 Dose: 650 mg Amlodipine Besylate (Norvasc) 5 mg PO DAILY [facility] Last Admin: 08/13/18 10:13 Dose: 5 mg Gabapentin (Neurontin) 300 mg PO TID [facility]; Protocol Last Admin: 08/13/18 10:13 Dose: 300 mg Meropenem 500 mg/ Sodium (Chloride) 50 mls @ 100 mls/hr IVPB Q12 [facility]; Protocol Stop: 08/19/18 22:01 Last Admin: 08/13/18 10:13 Dose: 100 mls/hr Insulin Human Regular (Humulin R Med) 0 units SC ACHS [facility]; Protocol Last Admin: 08/13/18 12:49 Dose: 3 units Labetalol HCl (Trandate) 300 mg PO BID [facility] Last Admin: 08/13/18 10:13 Dose: 300 mg Losartan Potassium (Cozaar) 100 mg PO DAILY [facility] Last Admin: 08/13/18 10:13 Dose: 100 mg Fenofibrate [ Fenoglide] 60 Mg ( Home Med) 60 mg PO DAILY [facility] Last Admin: 08/13/18 10:14 Dose: Not Given Physical Exam - Head Exam Head Exam: ATRAUMATIC, NORMAL INSPECTION, NORMOCEPHALIC - Eye Exam Eye Exam: EOMI, PERRL - ENT Exam ENT Exam: Mucous Membranes Moist - Respiratory Exam Respiratory Exam: Clear to Auscultation Bilateral, NORMAL BREATHING PATTERN - Cardiovascular Exam Cardiovascular Exam: REGULAR RHYTHM, +S1, +S2 - GI/Abdominal Exam GI & Abdominal Exam: Normal Bowel Sounds, Soft, Tenderness (mild to moderate mid epigastric region). absent: Firm, Guarding, Hernia, Rigid - Extremities Exam Extremities exam: Negative for: pedal edema - Back Exam Back exam: absent: paraspinal tenderness - Neurological Exam Neurological exam: Alert, Oriented x3 - Psychiatric Exam Psychiatric exam: Normal Affect, Normal Mood - Skin Skin Exam: Dry, Intact Results - Vital Signs Recent Vital Signs: Last Vital Signs Temp 98 F 08/13/18 07:53 Pulse 68 08/13/18 14:00 Resp 18 08/13/18 07:53 BP 175/63 H 08/13/18 14:00 Pulse Ox 98 08/13/18 07:53 - Labs Result Diagrams: 08/13/18 08:30 08/13/18 07:15 Labs: Laboratory Results - last 24 hr 08/12/18 08/12/18 08/12/18 06:37 11:00 16:06 WBC RBC Hgb Hct MCV MCH MCHC RDW Plt Count MPV Sodium Potassium Chloride Carbon Dioxide Anion Gap BUN Creatinine Est GFR ( Amer) Est GFR (Non-Af Amer) POC Glucose (mg/dL) 141 H 297 H 146 H Random Glucose Hemoglobin A1c Calcium Iron TIBC % Saturation Total Bilirubin AST ALT Alkaline Phosphatase Total Protein Albumin Globulin Albumin/Globulin Ratio Free T4 TSH 3rd Generation 08/12/18 08/13/18 08/13/18 21:25 06:43 07:15 WBC RBC Hgb Hct MCV MCH MCHC RDW Plt Count MPV Sodium 139 Potassium 3.7 Chloride 110 H Carbon Dioxide 25 Anion Gap 8 L BUN 31 H Creatinine 2.0 H Est GFR ( Amer) 30 Est GFR (Non-Af Amer) 25 POC Glucose (mg/dL) 246 H 192 H Random Glucose 171 H Hemoglobin A1c Calcium 8.3 L Iron TIBC % Saturation Total Bilirubin 0.2 AST 32 ALT 24 Alkaline Phosphatase 83 Total Protein 5.5 L Albumin 2.7 L Globulin 2.8 Albumin/Globulin Ratio 1.0 L Free T4 TSH 3rd Generation 08/13/18 08/13/18 08/13/18 07:15 07:15 07:15 WBC RBC Hgb Hct MCV MCH MCHC RDW Plt Count MPV Sodium Potassium Chloride Carbon Dioxide Anion Gap BUN Creatinine Est GFR ( Amer) Est GFR (Non-Af Amer) POC Glucose (mg/dL) Random Glucose Hemoglobin A1c 7.7 H Calcium Iron 65 TIBC 406 % Saturation 16 L Total Bilirubin AST ALT Alkaline Phosphatase Total Protein Albumin Globulin Albumin/Globulin Ratio Free T4 1.38 TSH 3rd Generation 2.99 08/13/18 08/13/18 08:30 11:18 WBC 6.3 RBC 2.65 L Hgb 8.2 L Hct 25.2 L MCV 95.1 MCH 30.9 MCHC 32.5 RDW 13.3 Plt Count 318 MPV 10.9 Sodium Potassium Chloride Carbon Dioxide Anion Gap BUN Creatinine Est GFR ( Amer) Est GFR (Non-Af Amer) POC Glucose (mg/dL) 240 H Random Glucose Hemoglobin A1c Calcium Iron TIBC % Saturation Total Bilirubin AST ALT Alkaline Phosphatase Total Protein Albumin Globulin Albumin/Globulin Ratio Free T4 TSH 3rd Generation Assessment & Plan - Assessment and Plan (Free Text) Assessment: 68 year old female with past medical history of HTN, DM2, obesity who presented to [facility] ED complaining of rigth sided body pain for the past three weeks. Patient is found to have acute on chronic anemia with Hgb of 8.4 on AM labs. Plan: Suspect PUD Anemia- Acute on chronic JOSUE Hx of benign Stomach tumor DM2 HTN - Continue to monitor H/H - Hgb goal >7 - Renal function elevated from baseline - Due to JOSUE abdominal CT with contrast will he held - When Cr function returns closer to baseline will get abd/pelvis CT with contrast - IV protonix 40mg Daily - Avoid NSAIDS - Further recommendations per Dr. Narayan - Date & Time Date: 08/13/18 Time: 10:02 <Megan Narayan V - Last Filed: 08/13/18 22:27> Meds - Medications Medications: Current Medications Acetaminophen (Tylenol 325mg Tab) 650 mg PO Q6H PRN PRN Reason: Fever >100.4 F Last Admin: 08/13/18 03:58 Dose: 650 mg Amlodipine Besylate (Norvasc) 10 mg PO DAILY [facility] Gabapentin (Neurontin) 300 mg PO TID [facility]; Protocol Last Admin: 08/13/18 19:45 Dose: Not Given Glimepiride (Amaryl) 2 mg PO DAILY [facility] Meropenem 500 mg/ Sodium (Chloride) 50 mls @ 100 mls/hr IVPB Q12 [facility]; Protocol Stop: 08/19/18 22:01 Last Admin: 08/13/18 22:10 Dose: 100 mls/hr Insulin Human Regular (Humulin R Med) 0 units SC ACHS [facility]; Protocol Last Admin: 08/13/18 22:10 Dose: Not Given Labetalol HCl (Trandate) 300 mg PO BID [facility] Last Admin: 08/13/18 19:46 Dose: Not Given Losartan Potassium (Cozaar) 100 mg PO DAILY [facility] Last Admin: 08/13/18 10:13 Dose: 100 mg Fenofibrate [ Fenoglide] 60 Mg ( Home Med) 60 mg PO DAILY [facility] Last Admin: 08/13/18 10:14 Dose: Not Given Oxycodone/Acetaminophen (Percocet 5/325 Mg Tab) 1 tab PO Q6H PRN PRN Reason: Pain, severe (8-10) Stop: 08/16/18 15:33 Pantoprazole Sodium (Protonix Inj) 40 mg IVP DAILY [facility] Last Admin: 08/13/18 16:31 Dose: 40 mg Results - Vital Signs Recent Vital Signs: Last Vital Signs Temp 98 F 08/13/18 07:53 Pulse 68 08/13/18 14:00 Resp 18 08/13/18 07:53 BP 151/66 H 08/13/18 15:00 Pulse Ox 98 08/13/18 07:53 - Labs Result Diagrams: 08/13/18 08:30 08/13/18 07:15 Labs: Laboratory Results - last 24 hr 08/13/18 08/13/18 08/13/18 06:43 07:15 07:15 WBC RBC Hgb Hct MCV MCH MCHC RDW Plt Count MPV Sodium 139 Potassium 3.7 Chloride 110 H Carbon Dioxide 25 Anion Gap 8 L BUN 31 H Creatinine 2.0 H Est GFR ( Amer) 30 Est GFR (Non-Af Amer) 25 POC Glucose (mg/dL) 192 H Random Glucose 171 H Hemoglobin A1c 7.7 H Calcium 8.3 L Iron TIBC % Saturation Total Bilirubin 0.2 AST 32 ALT 24 Alkaline Phosphatase 83 Total Protein 5.5 L Albumin 2.7 L Globulin 2.8 Albumin/Globulin Ratio 1.0 L Free T4 TSH 3rd Generation 08/13/18 08/13/18 08/13/18 07:15 07:15 08:30 WBC 6.3 RBC 2.65 L Hgb 8.2 L Hct 25.2 L MCV 95.1 MCH 30.9 MCHC 32.5 RDW 13.3 Plt Count 318 MPV 10.9 Sodium Potassium Chloride Carbon Dioxide Anion Gap BUN Creatinine Est GFR ( Amer) Est GFR (Non-Af Amer) POC Glucose (mg/dL) Random Glucose Hemoglobin A1c Calcium Iron 65 TIBC 406 % Saturation 16 L Total Bilirubin AST ALT Alkaline Phosphatase Total Protein Albumin Globulin Albumin/Globulin Ratio Free T4 1.38 TSH 3rd Generation 2.99 08/13/18 08/13/18 08/13/18 11:18 16:04 21:39 WBC RBC Hgb Hct MCV MCH MCHC RDW Plt Count MPV Sodium Potassium Chloride Carbon Dioxide Anion Gap BUN Creatinine Est GFR ( Amer) Est GFR (Non-Af Amer) POC Glucose (mg/dL) 240 H 155 H 195 H Random Glucose Hemoglobin A1c Calcium Iron TIBC % Saturation Total Bilirubin AST ALT Alkaline Phosphatase Total Protein Albumin Globulin Albumin/Globulin Ratio Free T4 TSH 3rd Generation Attending/Attestation - Attestation I have personally seen and examined this patient.: Yes I have fully participated in the care of the patient.: Yes I have reviewed all pertinent clinical information: Yes Notes (Text): This is an addendum to GI consult report dictated by the Motorcycle Designer.The patient was seen and evaluated earlier. Medical records, lab studies, imagings were reviewed. Last 24 hours events reviewed. Agreed with the above treatment plan as outlined in Motorcycle Designer 's notes with the addition of the following This patient is admitted with right side body pain Found to also be anemic History of surgery for stomach tumor Patient does have significant anemia Hb 8.2 but normocytic Follow up iron studies B12 and folate, reticulocyte count EGD once optimized Continue PPI 08/13/18 22:20
[2018-08-13] MEDS ORDERED: Oxycodone/Acetaminophen 5/325 mg Tab PO PRN (15:32)
--- NOTE | 2018-08-13 20:08 | PN ---
DATE: 08/13/2018 SUBJECTIVE: The patient is 68 years old, seen and examined, complained of epigastric discomfort, complained of pain in the right hip and right knee, hurts to walk, limping to walk. PHYSICAL EXAMINATION: VITAL SIGNS: She is afebrile, pulse 68, respirations 18, blood pressure 151/66. LUNGS: Bilateral fair airflow. No rhonchi or crackle. HEART: S1 and S2 audible. ABDOMEN: Soft, obese. Has slight right upper quadrant discomfort. NEUROLOGICAL: She is awake and alert, able to communicate and is ambulatory. EXTREMITIES: Has decreased range of motion in the right knee and the right hip, but no leg swelling. LABORATORY DATA: WBC 6.3, hemoglobin 8.2, hematocrit 25.2, platelets 318. Chemistry: Sodium of 139, potassium of 3.7, chloride 110, CO2 of 25, BUN 31, creatinine 2, blood sugar of 155. Urine shows E. coli ESBL positive. Stool for C. diff is negative. ASSESSMENT: 1. Escherichia coli extended-spectrum beta-lactamase positive urinary tract infection. 2. Probably right hip and right knee osteoarthritis. 3. Chronic kidney disease. 4. [id number] diabetes. PLAN: The patient needs 10 days of meropenem. I will increase her amlodipine to [address] Hernández has been consulted. I will request for TCU evaluation; if accepted, can be transferred there to finish course of antibiotic. Oral Thao MD
--- NOTE | 2018-08-13 21:59 | PN ---
DATE: 08/13/2018 SUBJECTIVE: The patient seen early this morning with no fevers, no chills, no nausea, no vomiting. PHYSICAL EXAMINATION: VITAL SIGNS: Temperature is 98, blood pressure is 170/60, respiratory rate of 18. HEENT: Unremarkable. NECK: Supple. LUNGS: Have decreased breath sounds. HEART: Normal S1 and S2. ABDOMEN: Soft. LABORATORY EXAMINATION: Reveals a white count of 6.3, hemoglobin of 8, platelets of 318. Chemistries reveals a BUN of 31, creatinine of 2. Urinalysis is noted. Microbiology reveals the patient has E. Coli in the urine, ESBL positive. Repeat blood cultures are reported to be negative. The stool for C. diff is negative antigen and negative toxin. Review of orders reveals the patient to be on prednisone, meropenem. ASSESSMENT AND PLAN: A 68-year-old female seen early this morning on 5-R with right pyelonephritis with extended-spectrum beta-lactamase Escherichia coli, acute renal failure and with a history of diabetes, hypertension, obesity and renal failure. Currently on meropenem day #2 of 10-14 days. We will follow closely with you. Nicolas Martin MD
--- NOTE | 2018-08-14 01:00 | CON ---
DATE: 08/13/2018 ORTHOPEDIC CONSULT REPORT LOCATION: Room 577, bed 1. Patient of Dr. Thao. HISTORY OF PRESENT ILLNESS: I was asked to see her for lower extremity pain. On close examination, I disclosed that she has good range of motion of the ankles and knees. No undue swelling and she describes radicular pain from the low back to the lower legs, more on the right than the left. Hip x-rays are within normal limits, but she does have some sacral iliac joint osteoarthritis. The hips were negative. The lumbar spine shows osteoarthritis of the lower lumbar spine with degenerative disk disease and she does have symptoms of spinal stenosis. I suggest she get a Neurology consult to make sure there is nothing else. In the meantime, we can do physical therapy, and of course Depo-MedrolCasie if she needs to in the near future to during examination that I will be seeing her for. Otherwise, I feel though she has degenerative disk disease, lumbar spine with bilateral radiculopathy, and that she may benefit from epidural for symptomatic relief and we will definitely do physical therapy for back stabilizing exercises. 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 I am planning to do physical therapy as well as conservative therapy, as she is only 68-year-old. Janes Hernández DO
[2018-08-14] MEDS: Insulin Reg-MEDIUM-Coverage SC SCH ×4 (08:31→22:04)
[2018-08-14] MEDS: Meropenem 500 MG in Sodium Chloride 0.9% 50 ML IVPB SCH ×2 (10:45→22:04)
--- NOTE | 2018-08-14 12:43 | PN ---
DATE: 08/14/2018 SUBJECTIVE: The patient is 68 years old, seen and examined. Complained of right leg and right knee pain. Otherwise, doing better. No chest pain. No abdominal pain. No shortness of breath. PHYSICAL EXAMINATION: VITAL SIGNS: She is afebrile, pulse 68, respirations 20, blood pressure 177/61. LUNGS: Bilateral fair airflow. No rhonchi or crackle. HEART: S1 and S2 audible. ABDOMEN: Soft, obese. Nontender. No rebound. No guarding. NEUROLOGICAL: The patient is awake, alert, oriented, communicative, ambulatory. LABORATORY EXAM: WBC 6.3, hemoglobin 8.2, hematocrit 25.2, platelet Of 380. Chemistry: Blood sugar is 158. Urine shows E. coli, ESBL positive. Stool C. diff is negative. ASSESSMENT: 1. Escherichia coli extended-spectrum beta-lactamase positive urinary tract infection. 2. Hypertension. 3. Noninsulin-dependent diabetes. 4. Hyperlipidemia. 5. Chronic kidney disease. PLAN: Currently, the patient is on meropenem as recommended by ID. She is on analgesic as needed. Abdominal ultrasound has been ordered by GI team. Awaiting Dr. Hernández's input. Arrangement is being made for either outpatient infusion for IV antibiotic to complete course of 10-14 days of antibiotics. Oral Thao MD
[2018-08-14] MEDS: FENOFIBRATE PO SCH (13:51)
--- NOTE | 2018-08-14 16:11 | US ---
HISTORY: epigastric pain, r/o stones COMPARISON: CT chest, abdomen, and pelvis without IV contrast performed 08/09/18 TECHNIQUE: Sonographic evaluation of the abdomen. FINDINGS: LIVER: Measures 16.4 cm in sagittal dimension. Echogenic liver may be seen in setting of hepatic parenchymal disease or fatty infiltration. No focal hepatic mass identified. The main portal vein appears patent with normal directional flow. No intrahepatic bile duct dilatation. GALLBLADDER: Cholecystectomy. COMMON BILE DUCT: Measures 9 mm. PANCREAS: Not well visualized. RIGHT KIDNEY: Measures 10.9 x 6.0 x 6.0 cm. No obstructing calculus or hydronephrosis identified. 2.5 x 2.9 x 2.4 cm cyst. LEFT KIDNEY: Measures 10.6 x 5.6 x 5.6cm. No obstructing calculus or hydronephrosis. 2.0 x 1.7 x 2.2 cm and 1.4 x 1.0 x 1.2 cm left renal cysts. SPLEEN: Measures approximately 9.0 cm. AORTA: Limited views appear unremarkable. IVC: Limited views appear unremarkable. OTHER FINDINGS: None. IMPRESSION: Bilateral renal cysts. Echogenic liver may be seen in setting of hepatic parenchymal disease or fatty infiltration. Dilated common bile duct in the setting of cholecystectomy.
--- NOTE | 2018-08-14 22:24 | PN ---
DATE: 08/14/2018 SUBJECTIVE: The patient is in bed, in no acute distress, nontoxic. PHYSICAL EXAMINATION: VITAL SIGNS: On exam, temperature is 98, blood pressure is 130/50, respiratory rate of 20, heart rate of 62. HEENT: Examination of HEENT is unremarkable. NECK: Supple. LUNGS: Have decreased breath sounds. HEART: Normal S1 and S2. ABDOMEN: Soft. LABORATORY DATA: Laboratory examination reveals a white count of 6.3, hemoglobin of 8, platelets of 318. Chemistries are noted. BUN of 31, creatinine of 2. Urinalysis is noted. Microbiology is reviewed. Urine culture has E. coli, which is ESBL positive. Review of orders reveals the patient to be on meropenem. The patient had an ultrasound of the abdomen. ASSESSMENT AND PLAN: A 68-year-old female, seen earlier this morning with right pyelonephritis with extended-spectrum beta-lactamase Escherichia coli, acute renal failure, history of diabetes, hypertension, obesity, renal failure, on day #3 of 10-14 days. Case discussed with Dr. Thao. The patient did have a CAT scan of the abdomen and pelvis, although it was without contrast. We will follow with you. Nicolas Martin MD
--- NOTE | 2018-08-14 23:41 | CP.PCM.PN ---
Subjective - Date & Time of Evaluation Date of Evaluation: 08/14/18 Time of Evaluation: 10:15 - Subjective Subjective: Patient feeling better no melena Ultrasound showed fatty liver no gallstones Objective - Vital Signs/Intake and Output Vital Signs (last 24 hours): Temp Pulse Resp BP Pulse Ox 97.7 F 62 18 154/55 H 97 08/14/18 21:26 08/14/18 21:26 08/14/18 21:26 08/14/18 21:26 08/14/18 21:26 Intake and Output: 08/14/18 08/15/18 18:59 06:59 Intake Total 1000 580 Output Total 1 Balance 999 580 - Medications Medications: Current Medications Acetaminophen (Tylenol 325mg Tab) 650 mg PO Q6H PRN PRN Reason: Fever >100.4 F Last Admin: 08/14/18 10:47 Dose: 650 mg Amlodipine Besylate (Norvasc) 10 mg PO DAILY [facility] Last Admin: 08/14/18 10:49 Dose: 10 mg Gabapentin (Neurontin) 300 mg PO TID [facility]; Protocol Last Admin: 08/14/18 17:28 Dose: 300 mg Glimepiride (Amaryl) 2 mg PO DAILY [facility] Last Admin: 08/14/18 10:49 Dose: 2 mg Meropenem 500 mg/ Sodium (Chloride) 50 mls @ 100 mls/hr IVPB Q12 [facility]; Protocol Stop: 08/19/18 22:01 Last Admin: 08/14/18 22:04 Dose: 100 mls/hr Insulin Human Regular (Humulin R Med) 0 units SC ACHS [facility]; Protocol Last Admin: 08/14/18 22:04 Dose: Not Given Labetalol HCl (Trandate) 300 mg PO BID [facility] Last Admin: 08/14/18 17:28 Dose: 300 mg Losartan Potassium (Cozaar) 100 mg PO DAILY [facility] Last Admin: 08/14/18 10:47 Dose: 100 mg Fenofibrate [ Fenoglide] 60 Mg ( Home Med) 60 mg PO DAILY [facility] Last Admin: 08/14/18 13:51 Dose: Not Given Oxycodone/Acetaminophen (Percocet 5/325 Mg Tab) 1 tab PO Q6H PRN PRN Reason: Pain, severe (8-10) Stop: 08/16/18 15:33 Pantoprazole Sodium (Protonix Inj) 40 mg IVP DAILY TL Last Admin: 08/14/18 10:50 Dose: 40 mg - Labs Labs: 08/13/18 08:30 08/13/18 07:15 PT 10.8 SECONDS (9.4-12.5) 08/09/18 15:50 INR 0.95 08/09/18 15:50 APTT 28.1 Seconds (25.1-36.5) 08/09/18 15:50 - Constitutional Appears: Non-toxic, No Acute Distress - Eye Exam Eye Exam: EOMI, PERRL - ENT Exam ENT Exam: Mucous Membranes Moist - Neck Exam Neck Exam: Full ROM. absent: Lymphadenopathy - Respiratory Exam Respiratory Exam: absent: Rales, Rhonchi, Stridor - Cardiovascular Exam Cardiovascular Exam: +S1, +S2 - GI/Abdominal Exam GI & Abdominal Exam: Soft. absent: Tenderness, Mass - Neurological Exam Neurological Exam: Alert, Awake, Oriented x3 Assessment and Plan - Assessment and Plan (Free Text) Assessment: Followup of the hemoglobin Elective GI workup Consider EGD if worsening of the abdominal pain or signs of bleeding Or significant further drop in blood count Patient JOSUE, ESBL UTI on brennon antibiotics as per ID
[2018-08-15] MEDS: Pantoprazole 40 mg EC Tab PO SCH (05:19)
[2018-08-15] MEDS: Insulin Reg-MEDIUM-Coverage SC SCH ×4 (07:54→21:51)
[2018-08-15] MEDS: Meropenem 500 MG in Sodium Chloride 0.9% 50 ML IVPB SCH ×2 (09:29→21:51)
--- NOTE | 2018-08-15 12:22 | CP.PCM.PN ---
<Barron Pfeiffer - Last Filed: 08/15/18 18:22> Subjective - Date & Time of Evaluation Date of Evaluation: 08/15/18 Time of Evaluation: 12:18 - Subjective Subjective: Reed Pfeiffer PGY2 IM Resident - GI Progress Note Dr. Narayan Patient feeling better from admission. Denies dizziness, chest pain, shortness of breath, abdominal discomfort. No acute events reported overnight. Objective - Vital Signs/Intake and Output Vital Signs (last 24 hours): Temp Pulse Resp BP Pulse Ox 98.3 F 68 20 157/60 H 96 08/15/18 06:00 08/15/18 09:27 08/15/18 06:00 08/15/18 09:28 08/15/18 06:00 Intake and Output: 08/15/18 08/15/18 06:59 18:59 Intake Total 580 Balance 580 - Medications Medications: Current Medications Acetaminophen (Tylenol 325mg Tab) 650 mg PO Q6H PRN PRN Reason: Fever >100.4 F Last Admin: 08/14/18 10:47 Dose: 650 mg Amlodipine Besylate (Norvasc) 10 mg PO DAILY [facility] Last Admin: 08/15/18 09:28 Dose: 10 mg Gabapentin (Neurontin) 300 mg PO TID [facility]; Protocol Last Admin: 08/15/18 09:28 Dose: 300 mg Glimepiride (Amaryl) 2 mg PO DAILY [facility] Last Admin: 08/15/18 09:28 Dose: 2 mg Meropenem 500 mg/ Sodium (Chloride) 50 mls @ 100 mls/hr IVPB Q12 [facility]; Protocol Stop: 08/19/18 22:01 Last Admin: 08/15/18 09:29 Dose: 100 mls/hr Insulin Human Regular (Humulin R Med) 0 units SC ACHS [facility]; Protocol Last Admin: 08/15/18 11:32 Dose: 5 units Labetalol HCl (Trandate) 300 mg PO BID [facility] Last Admin: 08/15/18 09:27 Dose: 300 mg Losartan Potassium (Cozaar) 100 mg PO DAILY [facility] Last Admin: 08/15/18 09:28 Dose: 100 mg Fenofibrate [ Fenoglide] 60 Mg ( Home Med) 60 mg PO DAILY [facility] Last Admin: 08/14/18 13:51 Dose: Not Given Oxycodone/Acetaminophen (Percocet 5/325 Mg Tab) 1 tab PO Q6H PRN PRN Reason: Pain, severe (8-10) Stop: 08/16/18 15:33 Pantoprazole Sodium (Protonix Ec Tab) 40 mg PO 0600 TL Last Admin: 08/15/18 05:19 Dose: 40 mg - Labs Labs: 08/13/18 08:30 08/13/18 07:15 PT 10.8 SECONDS (9.4-12.5) 08/09/18 15:50 INR 0.95 08/09/18 15:50 APTT 28.1 Seconds (25.1-36.5) 08/09/18 15:50 - Constitutional Appears: No Acute Distress - Head Exam Head Exam: ATRAUMATIC, NORMAL INSPECTION, NORMOCEPHALIC - Eye Exam Eye Exam: EOMI, PERRL - ENT Exam ENT Exam: Mucous Membranes Moist - Respiratory Exam Respiratory Exam: Clear to Ausculation Bilateral, NORMAL BREATHING PATTERN - Cardiovascular Exam Cardiovascular Exam: REGULAR RHYTHM, +S1, +S2 - GI/Abdominal Exam GI & Abdominal Exam: Soft, Normal Bowel Sounds. absent: Tenderness - Extremities Exam Extremities Exam: Full ROM - Neurological Exam Neurological Exam: Alert, Awake, Oriented x3 - Psychiatric Exam Psychiatric exam: Normal Affect, Normal Mood - Skin Skin Exam: Dry, Intact Assessment and Plan - Assessment and Plan (Free Text) Assessment: 68 year old female with past medical history of HTN, DM2, obesity who presented to [facility] ED complaining of rigth sided body pain for the past three weeks. Patient is found to have acute on chronic anemia Plan: Anemia- Acute on chronic Suspected PUD JOSUE Hx of benign Stomach tumor DM2 HTN - Abd US: Fatty liver disease with no apparent gallstones - Consider further endoscopy evaluation such as EGD pending patient clinical progression - If patient H/H drops consider transfusion - Continue antibiotics as per ID - Avoid NSAID usage - Workup outpatient as per primary - Bellaer recs per Dr. Fatima <Megan Narayan V - Last Filed: 08/16/18 22:42> Objective - Vital Signs/Intake and Output Vital Signs (last 24 hours): Temp Pulse Resp BP Pulse Ox 97.3 F L 76 20 148/52 L 98 08/16/18 06:00 08/16/18 10:05 08/16/18 06:00 08/16/18 10:05 08/16/18 06:00 Intake and Output: 08/16/18 08/17/18 18:59 06:59 Intake Total 960 Balance 960 - Medications Medications: Current Medications Acetaminophen (Tylenol 325mg Tab) 650 mg PO Q6H PRN PRN Reason: Fever >100.4 F Last Admin: 08/14/18 10:47 Dose: 650 mg Amlodipine Besylate (Norvasc) 10 mg PO DAILY [facility] Last Admin: 08/16/18 10:05 Dose: 10 mg Gabapentin (Neurontin) 300 mg PO TID [facility]; Protocol Last Admin: 08/16/18 17:27 Dose: 300 mg Glimepiride (Amaryl) 2 mg PO DAILY [facility] Last Admin: 08/16/18 10:06 Dose: 2 mg Meropenem 500 mg/ Sodium (Chloride) 50 mls @ 100 mls/hr IVPB Q12 [facility]; Protocol Stop: 08/19/18 22:01 Last Admin: 08/16/18 22:06 Dose: 100 mls/hr Insulin Human Regular (Humulin R Med) 0 units SC ACHS [facility]; Protocol Last Admin: 08/16/18 21:30 Dose: Not Given Labetalol HCl (Trandate) 300 mg PO BID [facility] Last Admin: 08/16/18 17:28 Dose: 300 mg Fenofibrate [ Fenoglide] 60 Mg ( Home Med) 60 mg PO DAILY [facility] Last Admin: 08/16/18 10:06 Dose: Not Given Pantoprazole Sodium (Protonix Ec Tab) 40 mg PO 0600 [facility] Last Admin: 08/16/18 05:52 Dose: 40 mg Polyethylene Glycol (Miralax) 17 gm PO DAILY [facility] Last Admin: 08/16/18 10:06 Dose: 17 gm - Labs Labs: 08/16/18 12:15 08/16/18 12:25 PT 10.8 SECONDS (9.4-12.5) 08/09/18 15:50 INR 0.95 08/09/18 15:50 APTT 28.1 Seconds (25.1-36.5) 08/09/18 15:50 Attending/Attestation - Attestation I have personally seen and examined this patient.: Yes I have fully participated in the care of the patient.: Yes I have reviewed all pertinent clinical information, including history, physical exam and plan: Yes Notes (Text): This is an addendum to GI followup report dictated by the [employer]. The patient was seen and evaluated earlier. Medical records, lab studies, imagings were reviewed. Last 24 hours events reviewed. Agreed with the above treatment plan as outlined in [employer] 's notes with the addition of the following Anemia HCT stable UTI Continue antibiotics as per ID JOSUE Constipation Continue Miralax Discussed with family in view of multiple co-morbidities and recent JOSUE would prefer elective EGD and colonoscopy after further optimization 08/16/18 22:39
[2018-08-15] MEDS: FENOFIBRATE PO SCH (13:32)
--- NOTE | 2018-08-15 13:52 | CT ---
Date of service: 08/15/2018 PROCEDURE: CT Lumbar Spine without contrast HISTORY: radiculer pain to both lower limbs COMPARISON: Lumbar spine radiographs 08/09/2018. TECHNIQUE: Axial computed tomography images were obtained of the lumbar spine without the use of intravenous contrast. Coronal and sagittal reformatted images were created and reviewed. Radiation dose: Total exam DLP = 1241.32 mGy-cm. This CT exam was performed using one or more of the following dose reduction techniques: Automated exposure control, adjustment of the mA and/or kV according to patient size, and/or use of iterative reconstruction technique. FINDINGS: VERTEBRAE: Lumbarized S1 (confirmed based on prior chest and pelvis CT 08/09/2018). No fracture. Normal alignment. DISCS/SPINAL CANAL/NEURAL FORAMINA: L1-2: No disc herniation, central canal or neural foraminal stenosis appreciated. L2-3: No disc herniation, central canal or neural foraminal stenosis appreciated. Minimal circumferential disc bulge identified. L3-4: A circumferential disc bulge is appreciated encroaching the bilateral lateral recesses but without causing significant central canal stenosis. Facet arthropathy appears [id number] severity. No significant neural foraminal stenosis identified. L4-5: A moderate circumferential disc osteophyte complex is appreciated combined with facet arthropathy to cause moderate to severe central canal stenosis (particularly at the superior L5 endplate level) but no significant neural foraminal stenosis. L5-S1: A circumferential disc osteophyte complex identified combined with gross facet joint degenerative arthropathy resulting in a severe central canal stenosis and borderline bilateral neural foraminal stenosis. PREVERTEBRAL AND PARASPINAL SOFT TISSUES: Non aneurysmal atherosclerotic abdominal aorta and iliac arterial system as imaged. OTHER FINDINGS: None. IMPRESSION: Advanced multilevel facet joint arthropathy combines with disc osteophyte complexes resulting in variable advanced central canal stenoses seen worst at L4-5, moderate to severe as well as L5-S1, severe. No gross disc herniation. MRI can be utilized for further characterization if clinically warranted. No fracture or spondylolisthesis.
--- NOTE | 2018-08-15 17:51 | CP.PCM.PN ---
Subjective - Date & Time of Evaluation Date of Evaluation: 08/15/18 Time of Evaluation: 10:50 - Subjective Subjective: No fevers, not in distress. No flank pain, no nausea. Objective - Vital Signs/Intake and Output Vital Signs (last 24 hours): Temp Pulse Resp BP Pulse Ox 97.7 F 62 18 154/55 H 97 08/14/18 21:26 08/14/18 21:26 08/14/18 21:26 08/14/18 21:26 08/14/18 21:26 Intake and Output: 08/14/18 08/15/18 18:59 06:59 Intake Total 1000 580 Output Total 1 Balance 999 580 - Medications Medications: Current Medications Acetaminophen (Tylenol 325mg Tab) 650 mg PO Q6H PRN PRN Reason: Fever >100.4 F Last Admin: 08/14/18 10:47 Dose: 650 mg Amlodipine Besylate (Norvasc) 10 mg PO DAILY [facility] Last Admin: 08/14/18 10:49 Dose: 10 mg Gabapentin (Neurontin) 300 mg PO TID [facility]; Protocol Last Admin: 08/14/18 17:28 Dose: 300 mg Glimepiride (Amaryl) 2 mg PO DAILY [facility] Last Admin: 08/14/18 10:49 Dose: 2 mg Meropenem 500 mg/ Sodium (Chloride) 50 mls @ 100 mls/hr IVPB Q12 [facility]; Protocol Stop: 08/19/18 22:01 Last Admin: 08/14/18 22:04 Dose: 100 mls/hr Insulin Human Regular (Humulin R Med) 0 units SC ACHS [facility]; Protocol Last Admin: 08/14/18 22:04 Dose: Not Given Labetalol HCl (Trandate) 300 mg PO BID [facility] Last Admin: 08/14/18 17:28 Dose: 300 mg Losartan Potassium (Cozaar) 100 mg PO DAILY [facility] Last Admin: 08/14/18 10:47 Dose: 100 mg Fenofibrate [ Fenoglide] 60 Mg ( Home Med) 60 mg PO DAILY [facility] Last Admin: 08/14/18 13:51 Dose: Not Given Oxycodone/Acetaminophen (Percocet 5/325 Mg Tab) 1 tab PO Q6H PRN PRN Reason: Pain, severe (8-10) Stop: 08/16/18 15:33 Pantoprazole Sodium (Protonix Ec Tab) 40 mg PO 0600 TL Last Admin: 08/15/18 05:19 Dose: 40 mg - Labs Labs: 08/13/18 08:30 08/13/18 07:15 PT 10.8 SECONDS (9.4-12.5) 08/09/18 15:50 INR 0.95 08/09/18 15:50 APTT 28.1 Seconds (25.1-36.5) 08/09/18 15:50 - Constitutional Appears: Chronically Ill - Head Exam Head Exam: NORMAL INSPECTION - Respiratory Exam Respiratory Exam: Decreased Breath Sounds - Cardiovascular Exam Cardiovascular Exam: +S1, +S2 - GI/Abdominal Exam GI & Abdominal Exam: Soft. absent: Tenderness Assessment and Plan - Assessment and Plan (Free Text) Plan: Asssessment right pyelonephritis with ESBL E. coli acute renal failure history of herpes zoster on the left chest and shoulder areas history of sepsis secondary to left otomastoiditis history of Methicillin-resistant coagulase negative staph and Enterococci bacteremia HTN DM obesity with BMI 30 chronic renal failure Plan continue Merrem day 4 and should complete 10-14 days of therapy; blood cx are negative will continue to monitor clinically follow up plans of Nephrology for the renal failure
--- NOTE | 2018-08-15 22:12 | PN ---
DATE: 08/15/2018 SUBJECTIVE: The patient is 68 years old, seen and examined, sitting in chair, seems to be comfortable. No nausea or vomiting. No diarrhea. PHYSICAL EXAMINATION: VITAL SIGNS: The patient is afebrile, pulse 65, respirations 18, blood pressure 141/60. LUNGS: Bilateral fair airflow. No rhonchi or crackle. HEART: S1 and S2 audible. ABDOMEN: Soft, obese, nontender. No rebound. No guarding. NEUROLOGICAL: She is awake, alert, oriented, able to communicate, ambulatory. EXTREMITIES: Complained of right knee, right hip pain, although x-rays are unremarkable. Bilateral leg, no edema. LABORATORY EXAM: Blood sugar is 158. Urine shows Escherichia coli, extended-spectrum beta-lactamase positive. Currently, on meropenem. ASSESSMENT: 1. Extended-spectrum beta-lactamase positive Escherichia coli urinary tract infection. 2. Noninsulin-dependent diabetes. 3. Right hip osteoarthritis with degenerative disk disease. PLAN: The patient is currently on meropenem. We will monitor blood sugar. Continue current medication. She is scheduled to be discharged on Saturday once she is finished 7 days of antibiotic. Oral Thao MD
[2018-08-16] MEDS: Pantoprazole 40 mg EC Tab PO SCH (05:52)
[2018-08-16] MEDS: Insulin Reg-MEDIUM-Coverage SC SCH ×4 (09:55→21:30)
[2018-08-16] MEDS: Meropenem 500 MG in Sodium Chloride 0.9% 50 ML IVPB SCH ×2 (09:56→22:06)
[2018-08-16] MEDS ORDERED: POLYETHYLENE GLYCOL 3350 17 GM/Dose PACKET PO SCH (10:00)
[2018-08-16] MEDS: FENOFIBRATE PO SCH (10:06)
[2018-08-16 13:04] LABS: ALBUMIN 3.2 g/dL (3.0-4.8); CALCIUM 8.8 mg/dL (8.4-10.5)
--- NOTE | 2018-08-16 13:44 | CP.PCM.PN ---
Subjective - Date & Time of Evaluation Date of Evaluation: 08/16/18 Time of Evaluation: 12:45 - Subjective Subjective: Patient is comfortable in bed, no fevers, not in distress, no flank pain, no nausea. Objective - Vital Signs/Intake and Output Vital Signs (last 24 hours): Temp Pulse Resp BP Pulse Ox 97.3 F L 76 20 148/52 L 98 08/16/18 06:00 08/16/18 10:05 08/16/18 06:00 08/16/18 10:05 08/16/18 06:00 Intake and Output: 08/16/18 08/16/18 06:59 18:59 Intake Total 620 Output Total 2 Balance 618 - Medications Medications: Current Medications Acetaminophen (Tylenol 325mg Tab) 650 mg PO Q6H PRN PRN Reason: Fever >100.4 F Last Admin: 08/14/18 10:47 Dose: 650 mg Amlodipine Besylate (Norvasc) 10 mg PO DAILY [facility] Last Admin: 08/16/18 10:05 Dose: 10 mg Gabapentin (Neurontin) 300 mg PO TID [facility]; Protocol Last Admin: 08/16/18 10:06 Dose: 300 mg Glimepiride (Amaryl) 2 mg PO DAILY [facility] Last Admin: 08/16/18 10:06 Dose: 2 mg Meropenem 500 mg/ Sodium (Chloride) 50 mls @ 100 mls/hr IVPB Q12 [facility]; Protocol Stop: 08/19/18 22:01 Last Admin: 08/16/18 09:56 Dose: 100 mls/hr Insulin Human Regular (Humulin R Med) 0 units SC ACHS [facility]; Protocol Last Admin: 08/16/18 09:55 Dose: Not Given Labetalol HCl (Trandate) 300 mg PO BID [facility] Last Admin: 08/16/18 10:05 Dose: 300 mg Losartan Potassium (Cozaar) 100 mg PO DAILY [facility] Last Admin: 08/16/18 10:06 Dose: 100 mg Fenofibrate [ Fenoglide] 60 Mg ( Home Med) 60 mg PO DAILY [facility] Last Admin: 08/16/18 10:06 Dose: Not Given Oxycodone/Acetaminophen (Percocet 5/325 Mg Tab) 1 tab PO Q6H PRN PRN Reason: Pain, severe (8-10) Stop: 08/16/18 15:33 Pantoprazole Sodium (Protonix Ec Tab) 40 mg PO 0600 [facility] Last Admin: 08/16/18 05:52 Dose: 40 mg Polyethylene Glycol (Miralax) 17 gm PO DAILY [facility] Last Admin: 08/16/18 10:06 Dose: 17 gm - Labs Labs: 08/13/18 08:30 08/13/18 07:15 PT 10.8 SECONDS (9.4-12.5) 08/09/18 15:50 INR 0.95 08/09/18 15:50 APTT 28.1 Seconds (25.1-36.5) 08/09/18 15:50 - Constitutional Appears: No Acute Distress, Chronically Ill - Head Exam Head Exam: NORMAL INSPECTION - Respiratory Exam Respiratory Exam: Decreased Breath Sounds - Cardiovascular Exam Cardiovascular Exam: +S1, +S2 - GI/Abdominal Exam GI & Abdominal Exam: Soft. absent: Tenderness Assessment and Plan - Assessment and Plan (Free Text) Plan: Asssessment right pyelonephritis with ESBL E. 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
--- NOTE | 2018-08-16 13:55 | CP.PCM.PN ---
<Ira Castanon - Last Filed: 08/16/18 14:08> Subjective - Date & Time of Evaluation Date of Evaluation: 08/16/18 Time of Evaluation: 09:00 - Subjective Subjective: PGY5 GI follow-up Pt seen and examined bedside Abd pain overnight tolerating diet small Bm yesterday ROS: 12 point ROS conducted, neg other than above Objective - Vital Signs/Intake and Output Vital Signs (last 24 hours): Temp Pulse Resp BP Pulse Ox 97.3 F L 76 20 148/52 L 98 08/16/18 06:00 08/16/18 10:05 08/16/18 06:00 08/16/18 10:05 08/16/18 06:00 Intake and Output: 08/16/18 08/16/18 06:59 18:59 Intake Total 620 Output Total 2 Balance 618 - Medications Medications: Current Medications Acetaminophen (Tylenol 325mg Tab) 650 mg PO Q6H PRN PRN Reason: Fever >100.4 F Last Admin: 08/14/18 10:47 Dose: 650 mg Amlodipine Besylate (Norvasc) 10 mg PO DAILY [facility] Last Admin: 08/16/18 10:05 Dose: 10 mg Gabapentin (Neurontin) 300 mg PO TID [facility]; Protocol Last Admin: 08/16/18 10:06 Dose: 300 mg Glimepiride (Amaryl) 2 mg PO DAILY [facility] Last Admin: 08/16/18 10:06 Dose: 2 mg Meropenem 500 mg/ Sodium (Chloride) 50 mls @ 100 mls/hr IVPB Q12 [facility]; Protocol Stop: 08/19/18 22:01 Last Admin: 08/16/18 09:56 Dose: 100 mls/hr Insulin Human Regular (Humulin R Med) 0 units SC ACHS [facility]; Protocol Last Admin: 08/16/18 12:43 Dose: 3 units Labetalol HCl (Trandate) 300 mg PO BID [facility] Last Admin: 08/16/18 10:05 Dose: 300 mg Losartan Potassium (Cozaar) 100 mg PO DAILY [facility] Last Admin: 08/16/18 10:06 Dose: 100 mg Fenofibrate [ Fenoglide] 60 Mg ( Home Med) 60 mg PO DAILY [facility] Last Admin: 08/16/18 10:06 Dose: Not Given Oxycodone/Acetaminophen (Percocet 5/325 Mg Tab) 1 tab PO Q6H PRN PRN Reason: Pain, severe (8-10) Stop: 08/16/18 15:33 Pantoprazole Sodium (Protonix Ec Tab) 40 mg PO 0600 [facility] Last Admin: 08/16/18 05:52 Dose: 40 mg Polyethylene Glycol (Miralax) 17 gm PO DAILY [facility] Last Admin: 08/16/18 10:06 Dose: 17 gm - Labs Labs: 08/13/18 08:30 08/16/18 12:25 PT 10.8 SECONDS (9.4-12.5) 08/09/18 15:50 INR 0.95 08/09/18 15:50 APTT 28.1 Seconds (25.1-36.5) 08/09/18 15:50 - Constitutional Appears: Well, No Acute Distress - Head Exam Head Exam: ATRAUMATIC, NORMOCEPHALIC - Eye Exam Eye Exam: Normal appearance - ENT Exam ENT Exam: Mucous Membranes Moist, Normal Exam - Neck Exam Neck Exam: Normal Inspection - Respiratory Exam Respiratory Exam: Clear to Ausculation Bilateral, NORMAL BREATHING PATTERN. absent: Rales, Rhonchi, Wheezes, Respiratory Distress - Cardiovascular Exam Cardiovascular Exam: REGULAR RHYTHM, +S1, +S2 - GI/Abdominal Exam GI & Abdominal Exam: Soft, Normal Bowel Sounds. absent: Guarding, Rigid, Tenderness, Organomegaly, Rebound - Extremities Exam Extremities Exam: absent: Joint Swelling - Neurological Exam Neurological Exam: Alert, Awake, Oriented x3 - Psychiatric Exam Psychiatric exam: Normal Affect, Normal Mood - Skin Skin Exam: Dry, Intact, Normal Color, Warm Assessment and Plan - Assessment and Plan (Free Text) Assessment: 68 year old female with past medical history of HTN, DM2, obesity who presented to [facility] complaining of rigth sided body pain for the past three weeks. Patient is found to have acute on chronic anemia Plan: Anemia- Acute on chronic Suspected PUD JOSUE Hx of benign Stomach tumor DM2 HTN - Abd US: Fatty liver disease with no apparent gallstones - Consider further endoscopy evaluation such as EGD pending patient clinical progression - If patient H/H drops consider transfusion - Continue antibiotics as per ID - Avoid NSAID usage - repeat CBC today to trending HGB -miralax daily DFrancisW Dr. Narayan <Megan Narayan V - Last Filed: 08/16/18 22:46> Objective - Vital Signs/Intake and Output Vital Signs (last 24 hours): Temp Pulse Resp BP Pulse Ox 97.3 F L 76 20 148/52 L 98 08/16/18 06:00 08/16/18 10:05 08/16/18 06:00 08/16/18 10:05 08/16/18 06:00 Intake and Output: 08/16/18 08/17/18 18:59 06:59 Intake Total 960 Balance 960 - Medications Medications: Current Medications Acetaminophen (Tylenol 325mg Tab) 650 mg PO Q6H PRN PRN Reason: Fever >100.4 F Last Admin: 08/14/18 10:47 Dose: 650 mg Amlodipine Besylate (Norvasc) 10 mg PO DAILY [facility] Last Admin: 08/16/18 10:05 Dose: 10 mg Gabapentin (Neurontin) 300 mg PO TID [facility]; Protocol Last Admin: 08/16/18 17:27 Dose: 300 mg Glimepiride (Amaryl) 2 mg PO DAILY [facility] Last Admin: 08/16/18 10:06 Dose: 2 mg Meropenem 500 mg/ Sodium (Chloride) 50 mls @ 100 mls/hr IVPB Q12 [facility]; Protocol Stop: 08/19/18 22:01 Last Admin: 08/16/18 22:06 Dose: 100 mls/hr Insulin Human Regular (Humulin R Med) 0 units SC ACHS [facility]; Protocol Last Admin: 08/16/18 21:30 Dose: Not Given Labetalol HCl (Trandate) 300 mg PO BID [facility] Last Admin: 08/16/18 17:28 Dose: 300 mg Fenofibrate [ Fenoglide] 60 Mg ( Home Med) 60 mg PO DAILY [facility] Last Admin: 08/16/18 10:06 Dose: Not Given Pantoprazole Sodium (Protonix Ec Tab) 40 mg PO 0600 [facility] Last Admin: 08/16/18 05:52 Dose: 40 mg Polyethylene Glycol (Miralax) 17 gm PO DAILY [facility] Last Admin: 08/16/18 10:06 Dose: 17 gm - Labs Labs: 08/16/18 12:15 08/16/18 12:25 PT 10.8 SECONDS (9.4-12.5) 08/09/18 15:50 INR 0.95 08/09/18 15:50 APTT 28.1 Seconds (25.1-36.5) 08/09/18 15:50 Attending/Attestation - Attestation I have personally seen and examined this patient.: Yes I have fully participated in the care of the patient.: Yes I have reviewed all pertinent clinical information, including history, physical exam and plan: Yes Notes (Text): This is an addendum to GI progress report dictated by the GI Fellow.The patient was seen and examined earlier. Medical records, lab studies, imagings were reviewed. Last 24 hours events reviewed. Agreed with the above treatment plan as outlined in GI Fellow 's notes with the addition of the following Followup of hemoglobin Increase the dose of miralax for constipation Discussed with patient daughter at length Need for elective GI workup including EGD and colonoscopy explained the risks benefits to the family who fully understood 08/16/18 22:43
[2018-08-16 14:27] LABS: BASO # 0.02 K/mm3 (0.0-2.0); BASO % 0.3 % (0.0-3.0); EOS # 0.3 (0.0-0.7); EOS % 4.3 % (1.5-5.0); GRAN # 4.76 (1.4-6.5); GRAN % 63.8 % (50.0-68.0); HEMOGLOBIN 8.9 g/dL (12.0-16.0); LYMPH # 1.9 (1.2-3.4); LYMPH % 25.3 % (22.0-35.0); MEAN CELL VOLUME 96.9 fl (80.0-105.0); MEAN PLATELET VOLUME 10.9 fl (7.0-11.0); MONO # 0.5 (0.1-0.6); MONO % 6.3 % (1.0-6.0); RBC 2.87 10^6/uL (3.5-6.1); RED CELL DISTRIBUTION WIDTH 13.2 % (11.5-14.5); WHITE BLOOD COUNT 7.5 10^3/ul (4.5-11.0)
[2018-08-16] MEDS ORDERED: Sod Polystyrene Sulf 15 gm/60 ml Susp PO ONE (17:28)
[2018-08-17] MEDS: Pantoprazole 40 mg EC Tab PO SCH (06:21)
[2018-08-17 08:49] LABS: ALBUMIN 2.9 g/dL (3.0-4.8); CALCIUM 8.4 mg/dL (8.4-10.5)
[2018-08-17] MEDS: POLYETHYLENE GLYCOL 3350 17 GM/Dose PACKET PO SCH ×2 (10:45→17:11)
[2018-08-17] MEDS: Insulin Reg-MEDIUM-Coverage SC SCH ×4 (10:46→22:15)
[2018-08-17] MEDS: FENOFIBRATE PO SCH (10:46)
[2018-08-17] MEDS: Meropenem 500 MG in Sodium Chloride 0.9% 50 ML IVPB SCH ×2 (10:47→22:22)
[2018-08-17] MEDS ORDERED: Iron Sucrose 100 mg/5 ml Inj IVP ONE (12:26)
--- NOTE | 2018-08-17 13:08 | CP.PCM.PN ---
Subjective - Date & Time of Evaluation Date of Evaluation: 08/17/18 Time of Evaluation: 10:25 - Subjective Subjective: Comfortable in bed, no fevers, no flank pain. Objective - Vital Signs/Intake and Output Vital Signs (last 24 hours): Temp Pulse Resp BP Pulse Ox 98.4 F 69 18 152/57 H 97 08/17/18 06:00 08/17/18 06:00 08/17/18 06:00 08/17/18 06:00 08/17/18 06:00 Intake and Output: 08/17/18 08/17/18 06:59 18:59 Intake Total 360 Balance 360 - Medications Medications: Current Medications Acetaminophen (Tylenol 325mg Tab) 650 mg PO Q6H PRN PRN Reason: Fever >100.4 F Last Admin: 08/14/18 10:47 Dose: 650 mg Amlodipine Besylate (Norvasc) 10 mg PO DAILY [facility] Last Admin: 08/16/18 10:05 Dose: 10 mg Gabapentin (Neurontin) 300 mg PO TID [facility]; Protocol Last Admin: 08/16/18 17:27 Dose: 300 mg Glimepiride (Amaryl) 2 mg PO DAILY [facility] Last Admin: 08/16/18 10:06 Dose: 2 mg Meropenem 500 mg/ Sodium (Chloride) 50 mls @ 100 mls/hr IVPB Q12 [facility]; Protocol Stop: 08/19/18 22:01 Last Admin: 08/16/18 22:06 Dose: 100 mls/hr Insulin Human Regular (Humulin R Med) 0 units SC ACHS [facility]; Protocol Last Admin: 08/16/18 21:30 Dose: Not Given Labetalol HCl (Trandate) 300 mg PO BID [facility] Last Admin: 08/16/18 17:28 Dose: 300 mg Fenofibrate [ Fenoglide] 60 Mg ( Home Med) 60 mg PO DAILY [facility] Last Admin: 08/16/18 10:06 Dose: Not Given Pantoprazole Sodium (Protonix Ec Tab) 40 mg PO 0600 [facility] Last Admin: 08/17/18 06:21 Dose: 40 mg Polyethylene Glycol (Miralax) 17 gm PO BID [facility] - Labs Labs: 08/16/18 12:15 08/17/18 07:00 PT 10.8 SECONDS (9.4-12.5) 08/09/18 15:50 INR 0.95 08/09/18 15:50 APTT 28.1 Seconds (25.1-36.5) 08/09/18 15:50 - Constitutional Appears: No Acute Distress, Chronically Ill - Head Exam Head Exam: NORMAL INSPECTION - Respiratory Exam Respiratory Exam: Decreased Breath Sounds - Cardiovascular Exam Cardiovascular Exam: +S1, +S2 - GI/Abdominal Exam GI & Abdominal Exam: Soft. absent: Tenderness Assessment and Plan - Assessment and Plan (Free Text) Plan: Asssessment right pyelonephritis with ESBL E. 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
--- NOTE | 2018-08-17 15:58 | CP.PCM.CON ---
<Ira Castanon - Last Filed: 08/17/18 15:54> History of Present Illness - History of Present Illness History of Present Illness: PGY5 GI Follow-up Pt seen and examined bedside BM yesterday Denies any abd pain tolerated diet ROS:12 point ROS conducted, neg other than above Past Patient History - Infectious Disease Hx of Infectious Diseases: None - Tetanus Immunizations Tetanus Immunization: Unknown - Past Social History Smoking Status: Never Smoked - CARDIAC Hx Cardiac Disorders: Yes Hx Hypercholesterolemia: Yes Hx Hypertension: Yes - PULMONARY Hx Respiratory Disorders: No - NEUROLOGICAL Hx Neurological Disorder: Yes (herpetic neuralgia) - HEENT Hx HEENT Problems: Yes Other/Comment: L otomastoiditis, malignant otitis externa - RENAL Hx Chronic Kidney Disease: Yes - ENDOCRINE/METABOLIC Hx Diabetes Mellitus Type 2: Yes - HEMATOLOGICAL/ONCOLOGICAL Hx Blood Disorders: Yes Hx Anemia: Yes Hx Shingles: Yes (left chest left shoulder 2017) Other/Comment: sepsis due to left otomastoiditis, hx methicillin-resistant coagulase negative staphylococcus and enterococcus bacteremia - INTEGUMENTARY Hx Dermatological Problems: Yes Other/Comment: multiple fading brown rash to rle and r knee and some to lle, scratch to left knee, healed scars to abd 1 large across abd and 3 smaller dark in color scars to lower abd and right side - MUSCULOSKELETAL/RHEUMATOLOGICAL Hx Musculoskeletal Disorders: Yes Hx Falls: No - GASTROINTESTINAL Hx Gastrointestinal Disorders: Yes (obese) - GENITOURINARY/GYNECOLOGICAL Hx Genitourinary Disorders: No - PSYCHIATRIC Hx Psychophysiologic Disorder: No Hx Substance Use: No - SURGICAL HISTORY Hx Surgeries: Yes Hx Cholecystectomy: Yes Other/Comment: unknown surgery - ANESTHESIA Hx Anesthesia: Yes Hx Anesthesia Reactions: No Meds Allergies/Adverse Reactions: Allergies Allergy/AdvReac Type Severity Reaction Status Date / Time No Known Allergies Allergy Verified 08/09/18 16:51 - Medications Medications: Current Medications Acetaminophen (Tylenol 325mg Tab) 650 mg PO Q6H PRN PRN Reason: Fever >100.4 F Last Admin: 08/14/18 10:47 Dose: 650 mg Amlodipine Besylate (Norvasc) 10 mg PO DAILY [facility] Last Admin: 08/17/18 10:45 Dose: 10 mg Gabapentin (Neurontin) 300 mg PO TID [facility]; Protocol Last Admin: 08/17/18 13:57 Dose: 300 mg Glimepiride (Amaryl) 2 mg PO DAILY [facility] Last Admin: 08/17/18 10:46 Dose: 2 mg Meropenem 500 mg/ Sodium (Chloride) 50 mls @ 100 mls/hr IVPB Q12 [facility]; Protocol Stop: 08/19/18 22:01 Last Admin: 08/17/18 10:47 Dose: 100 mls/hr Insulin Human Regular (Humulin R Med) 0 units SC ACHS [facility]; Protocol Last Admin: 08/17/18 10:46 Dose: Not Given Labetalol HCl (Trandate) 300 mg PO BID [facility] Last Admin: 08/17/18 10:46 Dose: 300 mg Fenofibrate [ Fenoglide] 60 Mg ( Home Med) 60 mg PO DAILY [facility] Last Admin: 08/17/18 10:46 Dose: Not Given Pantoprazole Sodium (Protonix Ec Tab) 40 mg PO 0600 [facility] Last Admin: 08/17/18 06:21 Dose: 40 mg Polyethylene Glycol (Miralax) 17 gm PO BID [facility] Last Admin: 08/17/18 10:45 Dose: 17 gm Physical Exam - Constitutional Appears: Well, No Acute Distress - Head Exam Head Exam: ATRAUMATIC, NORMOCEPHALIC - Eye Exam Eye Exam: Normal appearance - ENT Exam ENT Exam: Mucous Membranes Moist, Normal Exam - Neck Exam Neck exam: Positive for: Normal Inspection - Respiratory Exam Respiratory Exam: Clear to Auscultation Bilateral, NORMAL BREATHING PATTERN. absent: Rales, Rhonchi, Wheezes, Respiratory Distress - Cardiovascular Exam Cardiovascular Exam: REGULAR RHYTHM, +S1, +S2 - GI/Abdominal Exam GI & Abdominal Exam: Normal Bowel Sounds, Soft. absent: Distended, Firm, Guard ing, Organomegaly, Rebound, Rigid - Extremities Exam Extremities exam: Negative for: joint swelling, pedal edema - Neurological Exam Neurological exam: Altered - Psychiatric Exam Additional comments: cannot assess 2/2 non-verbal - Skin Skin Exam: Dry, Intact, Normal Color, Warm Results - Vital Signs Recent Vital Signs: Last Vital Signs Temp 98.4 F 08/17/18 14:00 Pulse 67 08/17/18 14:00 Resp 20 08/17/18 14:00 BP 121/48 L 08/17/18 14:00 Pulse Ox 95 08/17/18 14:00 - Labs Result Diagrams: 08/16/18 12:15 08/17/18 07:00 Labs: Laboratory Results - last 24 hr 08/16/18 08/16/18 08/16/18 11:19 16:04 20:51 Sodium Potassium Chloride Carbon Dioxide Anion Gap BUN Creatinine Est GFR ( Amer) Est GFR (Non-Af Amer) POC Glucose (mg/dL) 205 H 147 H 128 H Random Glucose Calcium Total Bilirubin AST ALT Alkaline Phosphatase Total Protein Albumin Globulin Albumin/Globulin Ratio 08/17/18 08/17/18 08/17/18 07:00 07:03 11:16 Sodium 141 Potassium 5.0 Chloride 111 H Carbon Dioxide 25 Anion Gap 11 BUN 53 H Creatinine 2.5 H Est GFR ( Amer) 23 Est GFR (Non-Af Amer) 19 POC Glucose (mg/dL) 66 153 H Random Glucose 58 L Calcium 8.4 Total Bilirubin 0.2 AST 35 ALT 27 Alkaline Phosphatase 96 Total Protein 5.7 L Albumin 2.9 L Globulin 2.8 Albumin/Globulin Ratio 1.0 L Assessment & Plan - Assessment and Plan (Free Text) Assessment: 68 year old female with past medical history of HTN, DM2, obesity who presented to [facility] ED complaining of rigth sided body pain for the past three weeks. Patient is found to have acute on chronic anemia Plan: Anemia- Acute on chronic Suspected PUD JOSUE Hx of benign Stomach tumor DM2 HTN - Abd US: Fatty liver disease with no apparent gallstones - HCT stable - Continue antibiotics as per ID - Avoid NSAID usage -miralax daily at home -spoke with pt and family, recommend oupt colonoscopy and EGD seen and D.W Dr. Narayan <Megan Narayan V - Last Filed: 08/17/18 23:40> Meds - Medications Medications: Current Medications Acetaminophen (Tylenol 325mg Tab) 650 mg PO Q6H PRN PRN Reason: Fever >100.4 F Last Admin: 08/14/18 10:47 Dose: 650 mg Amlodipine Besylate (Norvasc) 10 mg PO DAILY [facility] Last Admin: 08/17/18 10:45 Dose: 10 mg Gabapentin (Neurontin) 300 mg PO TID [facility]; Protocol Last Admin: 08/17/18 17:10 Dose: 300 mg Glimepiride (Amaryl) 2 mg PO DAILY [facility] Last Admin: 09/30/18 10:46 Dose: 2 mg Meropenem 500 mg/ Sodium (Chloride) 50 mls @ 100 mls/hr IVPB Q12 [facility]; Protocol Stop: 08/19/18 22:01 Last Admin: 08/17/18 22:22 Dose: 100 mls/hr Insulin Human Regular (Humulin R Med) 0 units SC ACHS [facility]; Protocol Last Admin: 08/17/18 17:15 Dose: 1 units Labetalol HCl (Trandate) 300 mg PO BID [facility] Last Admin: 08/17/18 17:10 Dose: 300 mg Fenofibrate [ Fenoglide] 60 Mg ( Home Med) 60 mg PO DAILY [facility] Last Admin: 08/17/18 10:46 Dose: Not Given Pantoprazole Sodium (Protonix Ec Tab) 40 mg PO 0600 [facility] Last Admin: 08/17/18 06:21 Dose: 40 mg Polyethylene Glycol (Miralax) 17 gm PO BID [facility] Last Admin: 08/17/18 17:11 Dose: 17 gm Results - Vital Signs Recent Vital Signs: Last Vital Signs Temp 98.4 F 08/17/18 14:00 Pulse 67 08/17/18 14:00 Resp 20 08/17/18 14:00 BP 121/48 L 08/17/18 14:00 Pulse Ox 95 08/17/18 14:00 - Labs Result Diagrams: 08/16/18 12:15 08/17/18 07:00 Labs: Laboratory Results - last 24 hr 08/17/18 08/17/18 08/17/18 07:00 07:03 11:16 Sodium 141 Potassium 5.0 Chloride 111 H Carbon Dioxide 25 Anion Gap 11 BUN 53 H Creatinine 2.5 H Est GFR ( Amer) 23 Est GFR (Non-Af Amer) 19 POC Glucose (mg/dL) 66 153 H Random Glucose 58 L Calcium 8.4 Total Bilirubin 0.2 AST 35 ALT 27 Alkaline Phosphatase 96 Total Protein 5.7 L Albumin 2.9 L Globulin 2.8 Albumin/Globulin Ratio 1.0 L 08/17/18 08/17/18 16:35 21:58 Sodium Potassium Chloride Carbon Dioxide Anion Gap BUN Creatinine Est GFR ( Amer) Est GFR (Non-Af Amer) POC Glucose (mg/dL) 196 H 168 H Random Glucose Calcium Total Bilirubin AST ALT Alkaline Phosphatase Total Protein Albumin Globulin Albumin/Globulin Ratio Attending/Attestation - Attestation I have personally seen and examined this patient.: Yes I have fully participated in the care of the patient.: Yes I have reviewed all pertinent clinical information: Yes Notes (Text): This is an addendum to GI progress report dictated by the GI Fellow.The patient was seen and examined earlier. Medical records, lab studies, imagings were reviewed. Last 24 hours events reviewed. Agreed with the above treatment plan as outlined in GI Fellow 's notes with the addition of the following Tolerating diet Her GI problems include constipation, anemia, history of abdominal pain improved 1. Continue low dose PPI 2 Followup of hb 3. Advance diet as tolerated 08/17/18 23:38
--- NOTE | 2018-08-17 20:39 | PN ---
DATE: 08/17/2018 SUBJECTIVE: The patient is 68 years old, seen and examined, sitting in chair, seems to be comfortable. No nausea or vomiting. No diarrhea. Complained of right knee pain, otherwise doing well. PHYSICAL EXAMINATION VITAL SIGNS: She is afebrile, pulse 67, respirations 20, blood pressure 121/48. LUNGS: Bilateral fair airflow. No rhonchi or crackle. HEART: S1 and S2 audible. ABDOMEN: Soft, obese, nontender. No rebound. No guarding. NEUROLOGICAL: She is awake, alert, oriented, communicative, ambulatory. LABORATORY DATA: Sodium 141, potassium 5, chloride 111, CO2 of 25, BUN 53, creatinine 2.5, blood sugar of 153. LFTs are within normal limits. ASSESSMENT: 1. Extended-spectrum beta-lactamase positive Escherichia coli urinary tract infection. 2. Hypertension. 3. Hyperlipidemia. 4. Chronic anemia. 5. Morbid obesity. 6. Multilevel degenerative disk disease. PLAN: We will give her one infusion of Venofer. She is on meropenem that she will be finishing on Saturday and possible discharge in the a.m. . Oral Thao MD
[2018-08-18] MEDS: Pantoprazole 40 mg EC Tab PO SCH (06:09)
[2018-08-18 07:45] VITALS: BP 140/60; PULSE 73; RESP 20; TEMP 97.6; O2SAT 99
[2018-08-18 08:27] LABS: HEMOGLOBIN 8.1 g/dL (12.0-16.0); MEAN CELL VOLUME 95.4 fl (80.0-105.0); MEAN CORPUSCULAR HEMOGLOBIN 31.2 pg (25.0-35.0); MEAN CORPUSCULAR HGB CONC 32.7 g/dl (31.0-37.0); MEAN PLATELET VOLUME 10.4 fl (7.0-11.0); RBC 2.6 10^6/uL (3.5-6.1); WHITE BLOOD COUNT 8.1 10^3/ul (4.5-11.0)
--- NOTE | 2018-08-18 09:02 | PN ---
DATE: 08/16/2018 SUBJECTIVE: The patient is 68 years old, seen and examined, sitting in chair, talking to her family. Seems to be comfortable. No nausea or vomiting. No diarrhea. PHYSICAL EXAMINATION: VITAL SIGNS: The patient is afebrile, pulse 76, respirations 20, blood pressure 148/52. LUNGS: Bilateral fair airflow. No rhonchi or crackle. HEART: S1 and S2 audible. ABDOMEN: Soft, obese, nontender. No rebound. No guarding. NEUROLOGICAL: The patient is awake and alert, able to communicate. LABORATORY EXAM: WBC 7.5, hemoglobin 8.9, hematocrit 27.8, platelet 376. Chemistry: Sodium 139, potassium 5.3, chloride 109, CO2 of 29, BUN 46, creatinine 2.6, blood sugar of 147. Urine culture positive for Escherichia coli, ESBL positive. ASSESSMENT: 1. Extended-spectrum beta-lactamase positive Escherichia coli urinary tract infection. 2. Hyperkalemia. 3. Renal insufficiency. 4. Noninsulin-dependent diabetes. PLAN: I will give the patient a dose of 15 g of Kayexalate. Discontinue losartan. Continue meropenem. Follow up her electrolyte in the a.m. Oral Thao MD
[2018-08-18] MEDS: POLYETHYLENE GLYCOL 3350 17 GM/Dose PACKET PO SCH (09:57)
[2018-08-18] MEDS: Meropenem 500 MG in Sodium Chloride 0.9% 50 ML IVPB SCH (09:57)
[2018-08-18] MEDS: Insulin Reg-MEDIUM-Coverage SC SCH (09:58)
[2018-08-18] MEDS: FENOFIBRATE PO SCH (09:59)
[2018-08-18] MEDS ORDERED: Iron Sucrose 100 mg/5 ml Inj IVP ONE (10:36)
--- NOTE | 2018-08-18 13:10 | CP.PCM.PN ---
<Beto Kim - Last Filed: 08/18/18 13:07> Subjective - Date & Time of Evaluation Date of Evaluation: 08/18/18 Time of Evaluation: 09:40 - Subjective Subjective: PGY-4 GI Fellow Prog Note Py lying in bed, watching TV when seen this AM. States minor L sided abd pain but is much improved. Tolerating diet. 5 point ROS negative other than stated above Objective - Vital Signs/Intake and Output Vital Signs (last 24 hours): Temp Pulse Resp BP Pulse Ox 97.6 F 73 20 140/60 99 08/18/18 06:00 08/18/18 06:00 08/18/18 06:00 08/18/18 09:58 08/18/18 06:00 Intake and Output: 08/18/18 08/18/18 06:59 18:59 Intake Total 180 Balance 180 - Medications Medications: Current Medications Acetaminophen (Tylenol 325mg Tab) 650 mg PO Q6H PRN PRN Reason: Fever >100.4 F Last Admin: 08/14/18 10:47 Dose: 650 mg Amlodipine Besylate (Norvasc) 10 mg PO DAILY [facility] Last Admin: 08/18/18 09:58 Dose: 10 mg Gabapentin (Neurontin) 300 mg PO TID [facility]; Protocol Last Admin: 08/18/18 09:58 Dose: 300 mg Glimepiride (Amaryl) 2 mg PO DAILY [facility] Last Admin: 08/18/18 09:58 Dose: 2 mg Meropenem 500 mg/ Sodium (Chloride) 50 mls @ 100 mls/hr IVPB Q12 [facility]; Protocol Stop: 08/19/18 22:01 Last Admin: 08/18/18 09:57 Dose: 100 mls/hr Insulin Human Regular (Humulin R Med) 0 units SC ACHS [facility]; Protocol Last Admin: 08/18/18 09:58 Dose: Not Given Labetalol HCl (Trandate) 300 mg PO BID [facility] Last Admin: 08/18/18 09:57 Dose: 300 mg Fenofibrate [ Fenoglide] 60 Mg ( Home Med) 60 mg PO DAILY [facility] Last Admin: 08/18/18 09:59 Dose: Not Given Pantoprazole Sodium (Protonix Ec Tab) 40 mg PO 0600 [facility] Last Admin: 08/18/18 06:09 Dose: 40 mg Polyethylene Glycol (Miralax) 17 gm PO BID [facility] Last Admin: 08/18/18 09:57 Dose: 17 gm - Labs Labs: 08/18/18 06:49 08/17/18 07:00 PT 10.8 SECONDS (9.4-12.5) 08/09/18 15:50 INR 0.95 08/09/18 15:50 APTT 28.1 Seconds (25.1-36.5) 08/09/18 15:50 - Constitutional Appears: Well, Non-toxic - Head Exam Head Exam: ATRAUMATIC, NORMAL INSPECTION - Eye Exam Eye Exam: EOMI. absent: Conjunctival injection, Scleral icterus - ENT Exam ENT Exam: Mucous Membranes Moist, TM's Normal Bilaterally. absent: Mucous Membranes Dry - Cardiovascular Exam Cardiovascular Exam: REGULAR RHYTHM, RRR - GI/Abdominal Exam GI & Abdominal Exam: Soft, Normal Bowel Sounds. absent: Bruit, Distended, Firm, Guarding, Rigid, Tenderness, Diminished Bowel Sounds, Hernia, Mass, Organ omegaly, Pulsatile Mass, Rebound Assessment and Plan - Assessment and Plan (Free Text) Assessment: 68 year old female with past medical history of HTN, DM2, obesity who presented to [facility] complaining of rigth sided body pain for the past three weeks. Patient is found to have acute on chronic anemia Plan: Anemia- Acute on chronic Suspected PUD JOSUE Hx of benign Stomach tumor DM2 Plan: - Hgb stable - Abd US: Fatty liver disease with no apparent gallstones - Continue antibiotics per ID - Avoid NSAID usage - Miralax daily at home - Recommend oupatient colonoscopy + EGD Pt discussed with Dr. Narayan <Megan Narayan V - Last Filed: 08/18/18 23:32> Objective - Vital Signs/Intake and Output Vital Signs (last 24 hours): Temp Pulse Resp BP Pulse Ox 97.6 F 73 20 140/60 99 08/18/18 06:00 08/18/18 06:00 08/18/18 06:00 08/18/18 09:58 08/18/18 06:00 Intake and Output: 08/18/18 08/19/18 18:59 06:59 Intake Total 720 Balance 720 - Labs Labs: 08/18/18 06:49 08/17/18 07:00 PT 10.8 SECONDS (9.4-12.5) 08/09/18 15:50 INR 0.95 08/09/18 15:50 APTT 28.1 Seconds (25.1-36.5) 08/09/18 15:50 Attending/Attestation - Attestation I have personally seen and examined this patient.: Yes I have fully participated in the care of the patient.: Yes I have reviewed all pertinent clinical information, including history, physical exam and plan: Yes Notes (Text): This is an addendum to GI progress report dictated by the GI Fellow.The patient was seen and examined earlier. Medical records, lab studies, imagings were rev iewed. Last 24 hours events reviewed. Agreed with the above treatment plan as outlined in GI Fellow 's notes with the addition of the following This patient is anemic Status post JOSUE Would need outpatient EGD and colonoscopy Advised family to followup with primary doctor and pulp roller as discussed with patient's PCP and patient's family earlier 08/18/18 23:30
--- NOTE | 2018-08-18 13:55 | CP.PCM.PN ---
Subjective - Date & Time of Evaluation Date of Evaluation: 08/18/18 Time of Evaluation: 11:45 - Subjective Subjective: No fevers, not in distress, no flank pain, no nausea. Objective - Vital Signs/Intake and Output Vital Signs (last 24 hours): Temp Pulse Resp BP Pulse Ox 97.6 F 73 20 140/60 99 08/18/18 06:00 08/18/18 06:00 08/18/18 06:00 08/18/18 09:58 08/18/18 06:00 Intake and Output: 08/18/18 08/18/18 06:59 18:59 Intake Total 180 Balance 180 - Medications Medications: Current Medications Acetaminophen (Tylenol 325mg Tab) 650 mg PO Q6H PRN PRN Reason: Fever >100.4 F Last Admin: 08/14/18 10:47 Dose: 650 mg Amlodipine Besylate (Norvasc) 10 mg PO DAILY [facility] Last Admin: 08/18/18 09:58 Dose: 10 mg Gabapentin (Neurontin) 300 mg PO TID [facility]; Protocol Last Admin: 08/18/18 09:58 Dose: 300 mg Glimepiride (Amaryl) 2 mg PO DAILY [facility] Last Admin: 08/18/18 09:58 Dose: 2 mg Meropenem 500 mg/ Sodium (Chloride) 50 mls @ 100 mls/hr IVPB Q12 [facility]; Protocol Stop: 08/19/18 22:01 Last Admin: 08/18/18 09:57 Dose: 100 mls/hr Insulin Human Regular (Humulin R Med) 0 units SC ACHS [facility]; Protocol Last Admin: 08/18/18 09:58 Dose: Not Given Labetalol HCl (Trandate) 300 mg PO BID [facility] Last Admin: 08/18/18 09:57 Dose: 300 mg Fenofibrate [ Fenoglide] 60 Mg ( Home Med) 60 mg PO DAILY [facility] Last Admin: 08/18/18 09:59 Dose: Not Given Pantoprazole Sodium (Protonix Ec Tab) 40 mg PO 0600 [facility] Last Admin: 08/18/18 06:09 Dose: 40 mg Polyethylene Glycol (Miralax) 17 gm PO BID [facility] Last Admin: 08/18/18 09:57 Dose: 17 gm - Labs Labs: 08/18/18 06:49 08/17/18 07:00 PT 10.8 SECONDS (9.4-12.5) 08/09/18 15:50 INR 0.95 08/09/18 15:50 APTT 28.1 Seconds (25.1-36.5) 08/09/18 15:50 - Constitutional Appears: No Acute Distress, Chronically Ill - Head Exam Head Exam: NORMAL INSPECTION - Respiratory Exam Respiratory Exam: Decreased Breath Sounds - Cardiovascular Exam Cardiovascular Exam: +S1, +S2 - GI/Abdominal Exam GI & Abdominal Exam: Soft. absent: Tenderness Assessment and Plan - Assessment and Plan (Free Text) Plan: Asssessment right pyelonephritis with ESBL E. coli acute renal failure history of herpes zoster on the left chest and shoulder areas history of sepsis secondary to left otomastoiditis history of Methicillin-resistant coagulase negative staph and Enterococci bacteremia HTN DM obesity with BMI 30 chronic renal failure Plan continue Merrem day 7 and should complete 10-14 days of therapy; blood cx are negative will continue to monitor clinically follow up plans of Nephrology for the renal failure
--- NOTE | 2018-08-19 10:43 | DS ---
HISTORY OF PRESENT ILLNESS: The patient is 68 years old, seen and examined, doing well. She is sitting in chair. Comfortable. No nausea, vomiting or diarrhea. Eating and tolerating. No abdominal pain. No shortness of breath. Complained of right hip and right knee pain, evaluated by Dr. Hernández. Recommended for NSAID and physical therapy but because of her history of anemia she is not a candidate of any NSAIDs. PHYSICAL EXAMINATION: GENERAL: Today, she is awake, alert, oriented, communicative, ambulatory. VITAL SIGNS: She is afebrile, pulse 73, respirations 20, blood pressure 140/60. LUNGS: Bilateral fair airflow. No rhonchi or crackle. HEART: S1 and S2 audible. ABDOMEN: Soft, obese, nontender. No rebound. No guarding. NEUROLOGICAL: She is awake, alert, oriented, communicative, ambulatory. EXTREMITIES: Bilateral legs, no edema. LABORATORY EXAM: WBC is 8.1, hemoglobin 8.1, hematocrit 24.8, platelet of 309. Chemistries: Blood sugar is 198. Urinalysis shows ESBL positive E. coli UTI. Patient has been on meropenem, recommendation was 5 to 7 days. Patient finished course of antibiotics, will be discharged today. ASSESSMENT: 1. Right hip osteoarthritis. 2. Hypertension. 3. Chronic anemia. 4. Non-insulin dependent diabetes. 5. Extended-spectrum beta-lactamase positive Escherichia coli urinary tract infection. PLAN: Patient will be discharged home today. She will follow up with her PMD. She was told to be worked up for anemia workup and she requires endoscopy and colonoscopy, this was explained to patient through drama teacher and she understand that she needs endoscopy and colonoscopy for further workup and she will follow with her PMD, Dr. Swartz. Also, we will arrange for EGD and colonoscopy. She is being discharged home today. She will resume all her medications. Oral Thao MD
== END 2018-08-18 14:44 | disposition home or self-care (01) | DRG 552 ==
LOC: ED 16:34 → ERH 20:15 → 2RNO 22:39 → 5RSO 08-11 16:16 → 5RNO 08-13 15:43
PROVIDERS: ADMIT Internal Medicine; ATTEND Internal Medicine
DX: M47.26 Other spondylosis with radiculopathy, lumbar region (principal); B02.29 Other postherpetic nervous system involvement; N12 Tubulo-interstitial nephritis, not specified as acute or chronic; N17.9 Acute kidney failure, unspecified; M16.11 Unilateral primary osteoarthritis, right hip; I12.9 Hypertensive chronic kidney disease with stage 1 through stage 4 chronic kidney disease, or unspecified chronic kidney disease; D64.9 Anemia, unspecified; E11.22 Type 2 diabetes mellitus with diabetic chronic kidney disease; N18.9 Chronic kidney disease, unspecified; B96.20 Unspecified Escherichia coli [E. coli] as the cause of diseases classified elsewhere; Z16.12 Extended spectrum beta lactamase (ESBL) resistance; E66.01 Morbid (severe) obesity due to excess calories; E78.00 Pure hypercholesterolemia, unspecified; E78.5 Hyperlipidemia, unspecified; E87.5 Hyperkalemia; K59.00 Constipation, unspecified; K76.0 Fatty (change of) liver, not elsewhere classified; R29.810 Facial weakness; Z68.34 Body mass index [BMI] 34.0-34.9, adult; Z79.899 Other long term (current) drug therapy; Z86.19 Personal history of other infectious and parasitic diseases; Z90.49 Acquired absence of other specified parts of digestive tract

== ENCOUNTER 2018-12-23 10:28 | Inpatient (IN) | payer MEDICARE ==
[2018-12-23 11:20] LABS: VENOUS BLOOD GAS BASE EXCESS -0.8 mmol/L (0.0-2.0); VENOUS BLOOD GAS PO2 35 mm/Hg (30-55); VENOUS BLOOD PH 7.38 (7.32-7.43)
[2018-12-23] MEDS ORDERED: Naloxone 0.4 mg/ml Inj (Adult) ONE (11:23)
[2018-12-23 11:28] LABS: BASO # 0.02 K/mm3 (0.0-2.0); BASO % 0.2 % (0.0-3.0); EOS % 0.3 % (1.5-5.0); HEMOGLOBIN 7.1 g/dL (12.0-16.0); LYMPH # 1.2 (1.2-3.4); MEAN CELL VOLUME 96.9 fl (80.0-105.0); MEAN CORPUSCULAR HEMOGLOBIN 31.7 pg (25.0-35.0); MEAN CORPUSCULAR HGB CONC 32.7 g/dl (31.0-37.0); MEAN PLATELET VOLUME 10.3 fl (7.0-11.0); MONO # 1.3 (0.1-0.6); MONO % 9.6 % (1.0-6.0); RBC 2.24 10^6/uL (3.5-6.1); RED CELL DISTRIBUTION WIDTH 14.3 % (11.5-14.5); WHITE BLOOD COUNT 13.2 10^3/uL (4.5-11.0)
--- NOTE | 2018-12-23 11:28 | EDPD ---
HPI Stroke - General Time Seen by Provider: 12/23/18 11:08 Chief Complaint: Altered Mental Status Historian: Patient - History of Present Illness Narrative History of Present Illness (Free Text): 12/23/18 11:04 68 year old female, with past medical history of hypertension, hyperlipidemia, chronic kidney disease, anemia and diabetes, and past surgical history of thyroid and back surgery, presents to the ED via EMS for evaluation of AMS since 9am this morning. As per family, patient was interacting at her baseline at 6:30 am and went back to sleep. Patient was then found to be altered after waking up at 9 am this morning. Patient reports increased intake of her pain medication than normal and informs increased lethargy since then. Patient denies any other somatic complaints. Patient expresses mild slurred speech but denies any numbness/weakness to her extremities. Patient reports right sided facial droop as chronic. PMHx: hypertension, hyperlipidemia, diabetes PSHx: thyroid surgery, back surgery Onset:: Hours Timing: Currently Symptomatic Context: Home Exacerbated by: Nothing Relieved by: Nothing - Location Location: Speech - Pain Assessment/Levels Maximum Severity: None Severity Current: None rTPA Inclusion/Exclusion - Inclusion Criteria for Altepase Patient is 18 years or Older: Yes The Clinical Diagnosis of Ischemic Stroke That is Causing a Potentially Disabling Neurological Deficit: No Time of Onset is Well Established to be Less Than 270 Minute Before Treatment Would Begin: No Risk/Benefit Discussed With Patient/Family Member Present: No - Exclusion Criteria for Altepase Uncontrolled Hypertension at Time of Treatment (Systolic BP above 185 or Diastolic BP above 110 mmHg): No Active Internal Bleeding: No Known Bleeding Diathesis Including but Not Limited to: Platelets Below 100,000/mm,PTT Above 40 sec After Heparin Use, Current Use of Oral Anitcoagulant With INR Greater Than 1.7 or PT Greater Than 15 secs: No Past Medical History - Provider Review Nursing Documentation Reviewed: Yes - Infectious Disease Hx of Infectious Diseases: None - Tetanus Immunization Tetanus Immunization: Unknown - Cardiac Hx Hypertension: Yes - Pulmonary Hx Respiratory Disorders: No - Neurological Hx Neurological Disorder: No - HEENT Hx HEENT Disorder: No - Renal Hx Renal Disorder: No - Endocrine/Metabolic Hx Diabetes Mellitus Type 2: Yes - Hematological/Oncological Hx Blood Disorders: No - Integumentary Hx Dermatological Disorder: No - Musculoskeletal/Rheumatological Hx Falls: No - Gastrointestinal Hx Gastrointestinal Disorders: No - Genitourinary/Gynecological Hx Genitourinary Disorders: No - Psychiatric Hx Psychophysiologic Disorder: No Hx Substance Use: No - Surgical History Other/Comment: unknown surgery - Anesthesia Hx Anesthesia: Yes Hx Anesthesia Reactions: No Hx Malignant Hyperthermia: No - Suicidal Assessment Feels Threatened In Home Enviroment: No Family/Social History - Family/Social History Family History: Non-Contributory Allergies/Home Meds Allergies/Adverse Reactions: Allergies No Known Allergies Allergy (Verified 12/23/18 11:46) Home Medications: Home Meds Medication Instructions Recorded Confirmed Fenofibrate [Fenoglide] 60 mg PO DAILY 09/21/17 12/23/18 Gabapentin [Neurontin] 100 mg PO BID 09/21/17 12/23/18 Omeprazole 20 mg PO DAILY 09/21/17 12/23/18 Atorvastatin [Lipitor] 40 mg PO DAILY 12/23/18 12/23/18 Calcium Carbonate/Vitamin D3 1 each PO DAILY 12/23/18 12/23/18 [Calcium 500-Vit D3 600 Caplet] Carvedilol [Coreg] 12.5 mg PO BID 12/23/18 12/23/18 Clonidine [Catapres-Tts 1] 1 each TD QWK 12/23/18 12/23/18 Ergocalciferol (Vitamin D2) 2,000 iu PO DAILY 12/23/18 12/23/18 [Vitamin D2] Ferrous Sulfate [Feosol] 325 mg PO DAILY 12/23/18 12/23/18 Glimepiride [amaRYL] 2 mg PO DAILY 12/23/18 12/23/18 Insulin Detemir [Levemir] 12 units SC HS 12/23/18 12/23/18 Losartan/Hydrochlorothiazide 1 each PO DAILY 12/23/18 12/23/18 [Losartan-Hctz 50-12.5 mg Tab] Losartan/Hydrochlorothiazide 1 each PO DAILY 12/23/18 12/23/18 [Losartan-Hctz 50-12.5 mg Tab] Omeprazole 20 mg PO DAILY 12/23/18 12/23/18 Sevelamer Carbonate [Renvela] 800 mg PO TID 12/23/18 12/23/18 Tramadol HCl [Ultram] 50 mg PO DAILY 12/23/18 12/23/18 amLODIPine [Norvasc] 10 mg PO DAILY 12/23/18 12/23/18 Review of Systems - Review of Systems Systems not reviewed;Unavailable: Acuity of Condition (Lethargic) Respiratory: absent: SOB Cardiovascular: absent: Chest Pain Neurological: Speech Changes, Facial Droop. absent: Headache ED Stroke Physical Exam Vital Signs Reviewed: Yes Vital Signs Pulse Resp BP Pulse Ox 12/23/18 10:28 70 17 135/57 L 100 Temperature: Afebrile Blood Pressure: Normal Pulse: Regular Respiratory Rate: Normal Appearance: Positive for: Well-Appearing, Non-Toxic, Comfortable Pain Distress: None Mental Status: Positive for: Lethargic - Systems Exam Head: Present: Atraumatic, Normocephalic Extroacular Muscles: Present: EOMI Conjunctiva: Present: Normal Mouth: Present: Moist Mucous Membranes Respiratory/Chest: Present: Clear to Auscultation, Good Air Exchange. No: Respiratory Distress, Accessory Muscle Use Cardiovascular: Present: Regular Rate and Rhythm, Normal S1, S2. No: Murmurs Abdomen: Present: Normal Bowel Sounds. No: Tenderness, Distention, Peritoneal Signs Genitourinary/Pelvic Exam: Present: NI. No: C, E Back: Present: GCS, CN, SP Upper Extremity: Present: Normal Inspection. No: Cyanosis, Edema Lower Extremity: Present: Normal Inspection. No: Edema Neurologic: Present: Motor Func Grossly Intact, Other (Mild slurred speech. Alert and oriented x2) Skin: Present: Warm, Dry, Normal Color. No: Rashes Lymphatic: Present: OX3, NI, NC Psychiatric: Present: Alert Medical Decision Making ED Course and Treatment: 12/23/18 11:28 Impression: 68 year old female presents to the ED for evaluation of AMS since prior to arrival. Last was normal at 0630 per family member bedside, took pain meds prior to sleeping and may have taken 4 pills (pt takes tramadol and neurontin), more than she normally takes. She denies any SI or HI or depression. On exam good strength in all extremities, R sided facial drop per family is chronic- NIHSS is 3. Outside of TPA window given timeframe. Likely drug OD but given slurred speech, dysarthia and mild lethargy will seek CT. GCS 13. Differential Diagnosis included but are not limited to: -- Drug OD -- UTI -- CVA -- TIA Plan: -- Labs -- VBG -- CT of head -- CXR -- Reassess and disposition Prior Visits: Notes and results from previous visits were reviewed. Progress Notes: 12/23/18 11:04 CODE STROKE ACTIVATED. Narcan given without effect. 12/23/18 11:10 EKG reviewed, shows NSR at 68 bpm. No STEMI. 12/23/18 11:57 CTH non-con w/ out bleed or ischemic infarct noted. Discussed case with Dr. Trujillo, who is aware and agrees with no indication for tPA at this time given the time of onset. Dr. Trujillo additionally states no indication for CTA given patient's elevated creatinine level and ability to repeat words without any complication. MRI to be ordered as per Dr. Trujillo's request. 12/23/18 13:02 GCS 13, pt in NAD, remains arousable to sound, protecting airway well Anemic, no bloody or dark stool per pt. No trauma. Likely chronic anemia. JOSUE. Pt notes still making good urine UTI likely, rocephin ordered empircally Appreciate consult w/ Dr. Evangelista: to admit to her service. Pt agreeable to plan. 12/23/18 13:23 CXR reviewed by radiologist, shows no active disease. - Lab Interpretations Lab Results: pO2 35 mm/Hg (30-55) 12/23/18 11:10 VBG pH 7.38 (7.32-7.43) 12/23/18 11:10 VBG pCO2 41.0 (40-60) 12/23/18 11:10 VBG HCO3 24.3 mmol/l (21-28) 12/23/18 11:10 VBG Total CO2 25.6 mmol.L (22-28) 12/23/18 11:10 VBG O2 Sat (Calc) 75.9 % (40-65) H 12/23/18 11:10 VBG Base Excess -0.8 mmol/L (0.0-2.0) L 12/23/18 11:10 VBG Potassium 5.0 mmol/L (3.6-5.2) 12/23/18 11:10 Sodium 141.0 mmol/L (132-148) 12/23/18 11:10 Chloride 114.0 mmol/L (98-107) H 12/23/18 11:10 Glucose 107 mg/dl (65-105) H 12/23/18 11:10 Lactate 0.8 mmol/L (0.7-2.1) 12/23/18 11:10 FiO2 21.0 % 12/23/18 11:10 - RAD Interpretation Radiology Orders: 12/23/18 11:00 CHEST PORTABLE [RAD] Stat 12/23/18 11:24 HEAD W/O (CODE STROKE) [CT] Stat Fruit Raiser: Radiologist - Scribe Statement The provider has reviewed the documentation as recorded by the Scribe Tyron Gibbs. All medical record entries made by the Scribe were at my direction and personally dictated by me. I have reviewed the chart and agree that the record accurately reflects my personal performance of the history, physical exam, medical decision making, and the department course for this patient. I have also personally directed, reviewed, and agree with the discharge instructions and disposition. NIHSS Scale ([place]) Time Performed: 11:05 - How Severe is the Stoke Baseline Level of Consciousness: 1=Drowsy LOC to Questions: 0=Both comments correct LOC to commands: 0=Obeys both correctly Best Gaze: 0=Normal Visual: 0=No visual loss Facial: 0=Normal ((R sided baseline per family, no worse than normal)) Motor Arm - Left: 0=No drift Motor Arm - Right: 0=No drift Motor Leg - Left: 0=No drift Motor Leg - Right: 0=No drift Limb Ataxia: 0=Absent Sensory: 0=Normal Best Language: 1=Mild to moderate aphasia Dysarthia: 1=Mild to moderate slurring Extinction & Inattention (Neglect): 0=Normal, no object Score: 3 Risk Level: Minor Stroke Risk Disposition/Present on Arrival - Present on Arrival Any Indicators Present on Arrival: No History of DVT/PE: No History of Uncontrolled Diabetes: Yes Urinary Catheter: No History of Decub. Ulcer: No History Surgical Site Infection Following: None - Disposition Have Diagnosis and Disposition been Completed?: Yes Diagnosis: Altered mental state, UTI (urinary tract infection) Disposition: HOSPITALIZED Disposition Time: 13:06 Patient Problems: Current Active Problems Problem Status Onset Urinary tract infection Acute Altered mental state Acute Condition: STABLE
[2018-12-23 11:39] LABS: ALB/GLOB RATIO 0.9 (1.1-1.8); ALBUMIN 2.7 g/dL (3.0-4.8); CALCIUM 8.5 mg/dL (8.4-10.5)
[2018-12-23 11:43] LABS: INR 1.19; PROTHROMBIN TIME 13.4 SECONDS (9.4-12.5)
[2018-12-23] MEDS ORDERED: Naloxone 0.4 mg/ml Inj (Adult) IVP STA ×2 (11:44→12:16)
[2018-12-23 11:49] LABS: TROPONIN I 0.02 ng/mL
--- NOTE | 2018-12-23 11:50 | CT ---
Date of service: 12/23/2018 PROCEDURE: CT HEAD WITHOUT CONTRAST. HISTORY: Code Stroke COMPARISON: 08/09/2018 TECHNIQUE: Axial computed tomography images were obtained through the head/brain without intravenous contrast. Radiation dose: Total exam DLP = 917.91 mGy-cm. This CT exam was performed using one or more of the following dose reduction techniques: Automated exposure control, adjustment of the mA and/or kV according to patient size, and/or use of iterative reconstruction technique. FINDINGS: HEMORRHAGE: No intracranial hemorrhage. BRAIN: No mass effect or edema. No atrophy or chronic microvascular ischemic changes. VENTRICLES: Unremarkable. No hydrocephalus. CALVARIUM: Unremarkable. PARANASAL SINUSES: Chronic ethmoid and bilateral maxillary sinusitis. MASTOID AIR CELLS: Unremarkable as visualized. No inflammatory changes. OTHER FINDINGS: None. IMPRESSION: No intracranial mass, hemorrhage or evidence of acute infarct chronic ethmoid and bilateral maxillary sinusitis. The findings in this examination were discussed by telephone with Dr. Escalera at 11:46 a.m. on 12/23/2018.
--- NOTE | 2018-12-23 12:41 | RAD ---
Date of service: 12/23/2018 HISTORY: ams COMPARISON: 08/09/2018 FINDINGS: LUNGS: No active pulmonary disease. PLEURA: No significant pleural effusion identified, no pneumothorax apparent. CARDIOVASCULAR: There is atherosclerotic calcification the thoracic aorta. Normal cardiac size. No pulmonary vascular congestion. OSSEOUS STRUCTURES: No significant abnormalities. VISUALIZED UPPER ABDOMEN: Normal. OTHER FINDINGS: None. IMPRESSION: No active disease.
[2018-12-23 12:52] LABS: URINE BILIRUBIN NEGATIVE (NEGATIVE); URINE BLOOD SMALL (NEGATIVE); URINE GLUCOSE (UA) NEGATIVE (NEGATIVE); URINE LEUKOCYTE ESTERASE TRACE Leu/uL (NEGATIVE); URINE PROTEIN >=300 mg/dL (<30 mg/dL); URINE UROBILINOGEN 0.2 E.U./dL (<1 E.U./dL)
[2018-12-23 12:53] LABS: URINE APPEARANCE SLIGHT-CLOUDY (CLEAR); URINE COLOR YELLOW (YELLOW)
[2018-12-23] MEDS ORDERED: cefTRIAXone 1 gm 1 GM/100 ML BAG IVPB STA (12:54)
[2018-12-23 13:01] LABS: URINE BACTERIA MANY /hpf
[2018-12-23 13:02] LABS: URINE AMORPHOUS SEDIMENT FEW /hpf
[2018-12-23 13:26] LABS: BARBITURATES, UR NEGATIVE (NEGATIVE); BENZODIAZEPINES, UR NEGATIVE (NEGATIVE); OPIATES, UR NEGATIVE (NEGATIVE); PHENCYCLIDINE, UR NEGATIVE (NEGATIVE)
--- NOTE | 2018-12-23 14:02 | CP.PCM.CON ---
History of Present Illness - History of Present Illness History of Present Illness: Neurology consult note Consulted by Dr. Escalera 68 yo female with PMH of hypertension, hyperlipidemia, chronic kidney disease, anemia and diabetes, and back surgery, presented to the ED via EMS for evaluation of AMS since 9am this morning. As per daughter at bedside, patient was interacting at her baseline at 6:30 am when she received her diabetes medication as well as 2 tablets of her tramadol and went back to sleep. Patient was then found to be altered after waking up at 9 am this morning. Daughter reports increased intake of her pain medication than normal and informs increased lethargy since then. Patient denies any other somatic complaints. Patient expresses mild slurred speech but denies any numbness/weakness to her extremities. Family reports that the right sided facial droop as chronic. In ED patient was given narcan. Patient did not qualify for tPA. 12 point ROS is unable to be obtained due to lethargy and AMS. PMH: HTN, diabetes, hyperlipidemia PSH: cholecystectomy, back surgery social history: denies smoking, alcohol use, illicit drug use allergy: denies Review of Systems - Review of Systems Systems not reviewed;Unavailable: Altered Mental Status Past Patient History - Infectious Disease Hx of Infectious Diseases: None - Tetanus Immunizations Tetanus Immunization: Unknown - Past Social History Smoking Status: Never Smoked - CARDIAC Hx Hypertension: Yes - PULMONARY Hx Respiratory Disorders: No - NEUROLOGICAL Hx Neurological Disorder: No - HEENT Hx HEENT Problems: No - RENAL Hx Chronic Kidney Disease: No - ENDOCRINE/METABOLIC Hx Diabetes Mellitus Type 2: Yes - HEMATOLOGICAL/ONCOLOGICAL Hx Blood Disorders: No - INTEGUMENTARY Hx Dermatological Problems: No - MUSCULOSKELETAL/RHEUMATOLOGICAL Hx Falls: No - GASTROINTESTINAL Hx Gastrointestinal Disorders: No - GENITOURINARY/GYNECOLOGICAL Hx Genitourinary Disorders: No - PSYCHIATRIC Hx Psychophysiologic Disorder: No Hx Substance Use: No - SURGICAL HISTORY Other/Comment: unknown surgery - ANESTHESIA Hx Anesthesia: Yes Hx Anesthesia Reactions: No Hx Malignant Hyperthermia: No Meds Allergies/Adverse Reactions: Allergies Allergy/AdvReac Type Severity Reaction Status Date / Time No Known Allergies Allergy Verified 12/23/18 11:46 Physical Exam - Constitutional Additional comments: lethargic - Head Exam Head Exam: ATRAUMATIC, NORMOCEPHALIC - Eye Exam Eye Exam: EOMI, Normal appearance, PERRL Pupil Exam: NORMAL ACCOMODATION, PERRL - Respiratory Exam Respiratory Exam: Clear to Auscultation Bilateral, NORMAL BREATHING PATTERN. absent: Respiratory Distress - Cardiovascular Exam Cardiovascular Exam: REGULAR RHYTHM - Extremities Exam Extremities exam: Positive for: pedal edema - Expanded Neurological Exam Expanded Neurological exam: Inattentive Patient oriented to: person, place, time Speech: Slurred Speech Cranial nerves: EOM's Intact: Normal, Facial Palsey w/Forehead Movement: Normal, Facial Palsey w/o Forehead Movement: Normal, Facial Sensation: Normal, Gag Reflex: Normal, Nystagmus: Normal, Tongue Deviation: Normal Neuro motor strength exam: Left Upper Extremity: 5, Right Upper Extremity: 5, Left Lower Extremity: 5, Right Lower Extremity: 5 Coma Scale Eye Opening: SPONTANEOUS Coma Scale Motor Response: OBEYS COMMANDS Coma Scale Verbal: Oriented Coma Scale Total: 15 - Skin Skin Exam: Dry, Intact, Normal Color, Warm Results - Vital Signs Recent Vital Signs: Last Vital Signs Temp Pulse 70 12/23/18 10:28 Resp 17 12/23/18 10:28 BP 124/57 L 12/23/18 13:24 Pulse Ox 100 12/23/18 10:28 - Labs Result Diagrams: 12/23/18 10:56 12/23/18 10:56 Labs: Laboratory Results - last 24 hr 12/23/18 12/23/18 12/23/18 10:56 10:56 10:56 WBC 13.2 H RBC 2.24 L Hgb 7.1 L Hct 21.7 L MCV 96.9 MCH 31.7 MCHC 32.7 RDW 14.3 Plt Count 227 MPV 10.3 Neut % (Auto) 80.9 H Lymph % (Auto) 9.0 L Nelson % (Auto) 9.6 H Eos % (Auto) 0.3 L Baso % (Auto) 0.2 Lymph # (Auto) 1.2 Nelson # (Auto) 1.3 H Eos # (Auto) 0.0 Baso # (Auto) 0.02 Absolute Neuts (auto) 10.67 H PT 13.4 H INR 1.19 APTT 35.0 pO2 VBG pH VBG pCO2 VBG HCO3 VBG Total CO2 VBG O2 Sat (Calc) VBG Base Excess VBG Potassium Glucose Lactate FiO2 Sodium 139 Potassium 4.7 Chloride 112 H Carbon Dioxide 23 Anion Gap 9 L BUN 51 H Creatinine 3.0 H Est GFR ( Amer) 19 Est GFR (Non-Af Amer) 16 Random Glucose 118 H Calcium 8.5 Total Bilirubin 0.3 AST 64 H D ALT 39 Alkaline Phosphatase 192 H D Lactate Dehydrogenase 824 H Total Creatine Kinase 137 Troponin I 0.02 D NT-Pro-B Natriuret Pep Total Protein 5.7 L Albumin 2.7 L Globulin 2.9 Albumin/Globulin Ratio 0.9 L Venous Blood Potassium Urine Color Urine Appearance Urine pH Ur Specific [place] Urine Protein Urine Glucose (UA) Urine Ketones Urine Blood Urine Nitrate Urine Bilirubin Urine Urobilinogen Ur Leukocyte Esterase Urine RBC Urine WBC Ur Epithelial Cells Amorphous Sediment Urine Bacteria Urine Other Salicylates Urine Opiates Screen Urine Methadone Screen Ur Barbiturates Screen Ur Phencyclidine Scrn Ur Amphetamines Screen U Benzodiazepines Scrn U Oth Cocaine Metabols U Cannabinoids Screen 12/23/18 12/23/18 12/23/18 11:10 11:30 11:30 WBC RBC Hgb Hct MCV MCH MCHC RDW Plt Count MPV Neut % (Auto) Lymph % (Auto) Nelson % (Auto) Eos % (Auto) Baso % (Auto) Lymph # (Auto) Nelson # (Auto) Eos # (Auto) Baso # (Auto) Absolute Neuts (auto) PT INR APTT pO2 35 VBG pH 7.38 VBG pCO2 41.0 VBG HCO3 24.3 VBG Total CO2 25.6 VBG O2 Sat (Calc) 75.9 H VBG Base Excess -0.8 L VBG Potassium 5.0 Glucose 107 H Lactate 0.8 FiO2 21.0 Sodium 141.0 Potassium Chloride 114.0 H Carbon Dioxide Anion Gap BUN Creatinine Est GFR ( Amer) Est GFR (Non-Af Amer) Random Glucose Calcium Total Bilirubin AST ALT Alkaline Phosphatase Lactate Dehydrogenase Total Creatine Kinase Troponin I NT-Pro-B Natriuret Pep 6550 H Total Protein Albumin Globulin Albumin/Globulin Ratio Venous Blood Potassium 5.0 Urine Color Urine Appearance Urine pH Ur Specific [place] Urine Protein Urine Glucose (UA) Urine Ketones Urine Blood Urine Nitrate Urine Bilirubin Urine Urobilinogen Ur Leukocyte Esterase Urine RBC Urine WBC Ur Epithelial Cells Amorphous Sediment Urine Bacteria Urine Other Salicylates < 1 L Urine Opiates Screen Urine Methadone Screen Ur Barbiturates Screen Ur Phencyclidine Scrn Ur Amphetamines Screen U Benzodiazepines Scrn U Oth Cocaine Metabols U Cannabinoids Screen 12/23/18 12/23/18 12:40 12:40 WBC RBC Hgb Hct MCV MCH MCHC RDW Plt Count MPV Neut % (Auto) Lymph % (Auto) Nelson % (Auto) Eos % (Auto) Baso % (Auto) Lymph # (Auto) Nelson # (Auto) Eos # (Auto) Baso # (Auto) Absolute Neuts (auto) PT INR APTT pO2 VBG pH VBG pCO2 VBG HCO3 VBG Total CO2 VBG O2 Sat (Calc) VBG Base Excess VBG Potassium Glucose Lactate FiO2 Sodium Potassium Chloride Carbon Dioxide Anion Gap BUN Creatinine Est GFR ( Amer) Est GFR (Non-Af Amer) Random Glucose Calcium Total Bilirubin AST ALT Alkaline Phosphatase Lactate Dehydrogenase Total Creatine Kinase Troponin I NT-Pro-B Natriuret Pep Total Protein Albumin Globulin Albumin/Globulin Ratio Venous Blood Potassium Urine Color Yellow Urine Appearance Slight-cloudy Urine pH 6.0 Ur Specific [place] 1.025 Urine Protein >=300 H Urine Glucose (UA) Negative Urine Ketones Negative Urine Blood Small H Urine Nitrate Positive H Urine Bilirubin Negative Urine Urobilinogen 0.2 Ur Leukocyte Esterase Trace H Urine RBC 10 - 15 H Urine WBC 5 - 10 H Ur Epithelial Cells 4 - 5 Amorphous Sediment Few Urine Bacteria Many Urine Other Uyeast Salicylates Urine Opiates Screen Negative Urine Methadone Screen Negative Ur Barbiturates Screen Negative Ur Phencyclidine Scrn Negative Ur Amphetamines Screen Negative U Benzodiazepines Scrn Negative U Oth Cocaine Metabols Negative U Cannabinoids Screen Negative Assessment & Plan - Assessment and Plan (Free Text) Assessment: 68 yo female with PMH of hypertension, hyperlipidemia, chronic kidney disease, anemia and diabetes, and back surgery, presented to the ED via EMS for evaluat ion of AMS since 9am this morning, patient was found to have anemia on admission, NIHSS scale 0 Plan: - CT head showed no mass, hemorrhage, or acute infarct - patient is anemic with positive UA, UTI as well as medication can contribute to the AMS - Will order MRI brain - Evaluation of PT, OT, ST - further recommendations be Dr. Trujillo case discussed with Dr. Trujillo
--- NOTE | 2018-12-23 14:31 | CP.PCM.HP ---
<Judson Curry - Last Filed: 12/23/18 21:31> History of Present Illness - History of Present Illness History of Present Illness: HISTORY & PHYSICAL NOTE FOR DR. MEKA Curry PGY1 68 y/o east timore[place] speaking F with PMHx of CKD, DM2, HTN, HLD, anemia presents to ED with daughter at bedside. Pt brought in by daughter d/t change in mental status, lethargy and weakness since this am. Daughter reports she had visited her this am when she noticed the change in mental status and lethargy. She reports she saw the pt two days ago, and pt was at her normal, ambulating well, tolerating diet and doing well. She reports this am, pt had ate a small amount of breakf ast, and was not at her baseline. Pt lives with her , and is generally independent at baseline. Upon interview, patient is somnolent, however responds to questions appropriately. She reports that her legs hurt, but otherwise denies any other complaints. She denies any falls, or trauma to her head. She denies fevers, chills, headache, dizziness, chest pain, palpitations, shortness of breath, nausea, vomiting, constipation, diarrhea, dysuria, hematuria. PMH: CKD, DM2, HTN, HLD, anemia ALL: NKDA PSH: unspecified stomach tumor removal, appendectomy, cholecystectomy, thyroid surgery, back surgery SH: Previous history of light smoking FH: Father: DM2 PMD: Dr. Erasto Huang ([place]) Meds: (Per pharmacy): Lipitor 40mg HS, Levemir 12u HS, Clonidine 0.1 patch QWK, Omerazole 20mg qd, Glimepiride 2mg QD, Amlodipine 10mg QD, Carvedilol 12.5mg bid, Renvela 800mg tid, Losartan/HCTZ 50/12.5mg QD. Nephrology: [facility] (Pt reports she got a biopsy about 1 month ago) Pharmacy: [facility] ([id number] Present on Admission - Present on Admission Any Indicators Present on Admission: No Review of Systems - Review of Systems Review of Systems: per HPI Past Patient History - Infectious Disease Hx of Infectious Diseases: None - Tetanus Immunizations Tetanus Immunization: Unknown - Past Social History Smoking Status: Never Smoked - CARDIAC Hx Hypertension: Yes - PULMONARY Hx Respiratory Disorders: No - NEUROLOGICAL Hx Neurological Disorder: No - HEENT Hx HEENT Problems: No - RENAL Hx Chronic Kidney Disease: No - ENDOCRINE/METABOLIC Hx Diabetes Mellitus Type 2: Yes - HEMATOLOGICAL/ONCOLOGICAL Hx Blood Disorders: No - INTEGUMENTARY Hx Dermatological Problems: No - MUSCULOSKELETAL/RHEUMATOLOGICAL Hx Falls: No - GASTROINTESTINAL Hx Gastrointestinal Disorders: No - GENITOURINARY/GYNECOLOGICAL Hx Genitourinary Disorders: No - PSYCHIATRIC Hx Psychophysiologic Disorder: No Hx Substance Use: No - SURGICAL HISTORY Other/Comment: unknown surgery - ANESTHESIA Hx Anesthesia: Yes Hx Anesthesia Reactions: No Hx Malignant Hyperthermia: No Meds Allergies/Adverse Reactions: Allergies Allergy/AdvReac Type Severity Reaction Status Date / Time No Known Allergies Allergy Verified 12/23/18 11:46 Physical Exam - Constitutional Appears: Well, Non-toxic, No Acute Distress, Chronically Ill - Head Exam Head Exam: NORMAL INSPECTION, NORMOCEPHALIC - Eye Exam Eye Exam: EOMI, Normal appearance - ENT Exam ENT Exam: Mucous Membranes Moist, Normal Exam - Neck Exam Neck exam: Positive for: Normal Inspection. Negative for: Meningismus - Respiratory Exam Respiratory Exam: Clear to Auscultation Bilateral, NORMAL BREATHING PATTERN - Cardiovascular Exam Cardiovascular Exam: REGULAR RHYTHM, +S1, +S2 - GI/Abdominal Exam GI & Abdominal Exam: Soft. absent: Distended, Guarding Additional comments: appendectomy & cholecystectomy scars noted. C/D/I - Extremities Exam Extremities exam: Positive for: pedal edema. Negative for: calf tenderness - Back Exam Back exam: NORMAL INSPECTION - Neurological Exam Neurological exam: Alert Additional comments: Oriented x 2 - Psychiatric Exam Psychiatric exam: Normal Affect - Skin Skin Exam: Dry, Intact, Warm Results - Vital Signs Recent Vital Signs: Last Vital Signs Temp Pulse 70 12/23/18 10:28 Resp 17 12/23/18 10:28 BP 124/57 L 12/23/18 13:24 Pulse Ox 100 12/23/18 10:28 - Labs Result Diagrams: 12/23/18 10:56 12/23/18 10:56 Labs: Laboratory Results - last 24 hr 12/23/18 12/23/18 12/23/18 10:56 10:56 10:56 WBC 13.2 H RBC 2.24 L Hgb 7.1 L Hct 21.7 L MCV 96.9 MCH 31.7 MCHC 32.7 RDW 14.3 Plt Count 227 MPV 10.3 Neut % (Auto) 80.9 H Lymph % (Auto) 9.0 L Bay % (Auto) 9.6 H Eos % (Auto) 0.3 L Baso % (Auto) 0.2 Lymph # (Auto) 1.2 [place] # (Auto) 1.3 H Eos # (Auto) 0.0 Baso # (Auto) 0.02 Absolute Neuts (auto) 10.67 H PT 13.4 H INR 1.19 APTT 35.0 pO2 VBG pH VBG pCO2 VBG HCO3 VBG Total CO2 VBG O2 Sat (Calc) VBG Base Excess VBG Potassium Glucose Lactate FiO2 Sodium 139 Potassium 4.7 Chloride 112 H Carbon Dioxide 23 Anion Gap 9 L BUN 51 H Creatinine 3.0 H Est GFR ( Amer) 19 Est GFR (Non-Af Amer) 16 Random Glucose 118 H Calcium 8.5 Total Bilirubin 0.3 AST 64 H D ALT 39 Alkaline Phosphatase 192 H D Lactate Dehydrogenase 824 H Total Creatine Kinase 137 Troponin I 0.02 D NT-Pro-B Natriuret Pep Total Protein 5.7 L Albumin 2.7 L Globulin 2.9 Albumin/Globulin Ratio 0.9 L TSH 3rd Generation Venous Blood Potassium Urine Color Urine Appearance Urine pH Ur Specific [place] Urine Protein Urine Glucose (UA) Urine Ketones Urine Blood Urine Nitrate Urine Bilirubin Urine Urobilinogen Ur Leukocyte Esterase Urine RBC Urine WBC Ur Epithelial Cells Amorphous Sediment Urine Bacteria Urine Other Salicylates Urine Opiates Screen Urine Methadone Screen Ur Barbiturates Screen Ur Phencyclidine Scrn Ur Amphetamines Screen U Benzodiazepines Scrn U Oth Cocaine Metabols U Cannabinoids Screen 12/23/18 12/23/18 12/23/18 11:10 11:30 11:30 WBC RBC Hgb Hct MCV MCH MCHC RDW Plt Count MPV Neut % (Auto) Lymph % (Auto) [place] % (Auto) Eos % (Auto) Baso % (Auto) Lymph # (Auto) [place] # (Auto) Eos # (Auto) Baso # (Auto) Absolute Neuts (auto) PT INR APTT pO2 35 VBG pH 7.38 VBG pCO2 41.0 VBG HCO3 24.3 VBG Total CO2 25.6 VBG O2 Sat (Calc) 75.9 H VBG Base Excess -0.8 L VBG Potassium 5.0 Glucose 107 H Lactate 0.8 FiO2 21.0 Sodium 141.0 Potassium Chloride 114.0 H Carbon Dioxide Anion Gap BUN Creatinine Est GFR ( Amer) Est GFR (Non-Af Amer) Random Glucose Calcium Total Bilirubin AST ALT Alkaline Phosphatase Lactate Dehydrogenase Total Creatine Kinase Troponin I NT-Pro-B Natriuret Pep 6550 H Total Protein Albumin Globulin Albumin/Globulin Ratio TSH 3rd Generation Venous Blood Potassium 5.0 Urine Color Urine Appearance Urine pH Ur Specific [place] Urine Protein Urine Glucose (UA) Urine Ketones Urine Blood Urine Nitrate Urine Bilirubin Urine Urobilinogen Ur Leukocyte Esterase Urine RBC Urine WBC Ur Epithelial Cells Amorphous Sediment Urine Bacteria Urine Other Salicylates < 1 L Urine Opiates Screen Urine Methadone Screen Ur Barbiturates Screen Ur Phencyclidine Scrn Ur Amphetamines Screen U Benzodiazepines Scrn U Oth Cocaine Metabols U Cannabinoids Screen 12/23/18 12/23/18 12/23/18 12:40 12:40 13:20 WBC RBC Hgb Hct MCV MCH MCHC RDW Plt Count MPV Neut % (Auto) Lymph % (Auto) Bay % (Auto) Eos % (Auto) Baso % (Auto) Lymph # (Auto) [place] # (Auto) Eos # (Auto) Baso # (Auto) Absolute Neuts (auto) PT INR APTT pO2 VBG pH VBG pCO2 VBG HCO3 VBG Total CO2 VBG O2 Sat (Calc) VBG Base Excess VBG Potassium Glucose Lactate FiO2 Sodium Potassium Chloride Carbon Dioxide Anion Gap BUN Creatinine Est GFR ( Amer) Est GFR (Non-Af Amer) Random Glucose Calcium Total Bilirubin AST ALT Alkaline Phosphatase Lactate Dehydrogenase Total Creatine Kinase Troponin I NT-Pro-B Natriuret Pep Total Protein Albumin Globulin Albumin/Globulin Ratio TSH 3rd Generation 0.97 Venous Blood Potassium Urine Color Yellow Urine Appearance Slight-cloudy Urine pH 6.0 Ur Specific [place] 1.025 Urine Protein >=300 H Urine Glucose (UA) Negative Urine Ketones Negative Urine Blood Small H Urine Nitrate Positive H Urine Bilirubin Negative Urine Urobilinogen 0.2 Ur Leukocyte Esterase Trace H Urine RBC 10 - 15 H Urine WBC 5 - 10 H Ur Epithelial Cells 4 - 5 Amorphous Sediment Few Urine Bacteria Many Urine Other Uyeast Salicylates Urine Opiates Screen Negative Urine Methadone Screen Negative Ur Barbiturates Screen Negative Ur Phencyclidine Scrn Negative Ur Amphetamines Screen Negative U Benzodiazepines Scrn Negative U Oth Cocaine Metabols Negative U Cannabinoids Screen Negative Assessment & Plan - Assessment and Plan (Free Text) Assessment: 68 y/o east tim[place] speaking F with PMHx of CKD, DM2, HTN, HLD, anemia presents to ED for change mental status, lethargy and weakness Plan: Toxic metabolic encephalopathy Likely 2/2 to UTI U/A revealing (+) nitrate. Leukocytsis. Treat with IV rocephin daily urine/blood cultures pending Neurology consulted f/u MRI JOSUE on CKD continue home renvela Pt had recent kidney biopsy at [facility] Nephro consulted f/u immunofixation, PTH, SPEP, Uprotein, vit D, Ferritin Strict I&Os DM2 Continue home glimepiride Insulin SS Accuchecks ACHS Hypertension Continue home amlodipine, carvedilol Dispo: PT/OT/Speech eval pending Case seen, examined and discussed with attending physician, Dr. Meka Curry PGY1 <Geovanni Evangelista - Last Filed: 12/26/18 16:43> Results - Vital Signs Recent Vital Signs: Last Vital Signs Temp 97.9 F 12/26/18 12:00 Pulse 65 12/26/18 12:00 Resp 20 12/26/18 12:00 BP 173/72 H 12/26/18 12:00 Pulse Ox 99 12/26/18 06:00 - Labs Result Diagrams: 12/26/18 07:35 12/26/18 07:35 Labs: Laboratory Results - last 24 hr 12/24/18 12/24/18 12/25/18 08:50 08:50 10:30 WBC RBC Hgb Hct MCV MCH MCHC RDW Plt Count MPV Neut % (Auto) Lymph % (Auto) [place] % (Auto) Eos % (Auto) Baso % (Auto) Lymph # (Auto) [place] # (Auto) Eos # (Auto) Baso # (Auto) Absolute Neuts (auto) Sodium Potassium Chloride Carbon Dioxide Anion Gap BUN Creatinine Est GFR ( Amer) Est GFR (Non-Af Amer) POC Glucose (mg/dL) Random Glucose Calcium Phosphorus Magnesium Ferritin 291.0 Total Bilirubin AST ALT Alkaline Phosphatase Total Protein Albumin Globulin Albumin/Globulin Ratio Vitamin B12 559 Folate 7.6 Calcium (PTH Intact) 8.0 L Serum Immunofixation Detected H 12/25/18 12/25/18 12/26/18 15:50 21:38 07:35 WBC 7.0 RBC 2.54 L Hgb 7.8 L Hct 23.5 L MCV 92.5 MCH 30.7 MCHC 33.2 RDW 15.2 H Plt Count 219 MPV 10.5 Neut % (Auto) 64.2 Lymph % (Auto) 19.5 L [place] % (Auto) 10.1 H Eos % (Auto) 6.1 H Baso % (Auto) 0.1 Lymph # (Auto) 1.4 [place] # (Auto) 0.7 H Eos # (Auto) 0.4 Baso # (Auto) 0.01 Absolute Neuts (auto) 4.52 Sodium Potassium Chloride Carbon Dioxide Anion Gap BUN Creatinine Est GFR ( Amer) Est GFR (Non-Af Amer) POC Glucose (mg/dL) 169 H 221 H Random Glucose Calcium Phosphorus Magnesium Ferritin Total Bilirubin AST ALT Alkaline Phosphatase Total Protein Albumin Globulin Albumin/Globulin Ratio Vitamin B12 Folate Calcium (PTH Intact) Serum Immunofixation 12/26/18 12/26/18 12/26/18 07:35 07:40 11:33 WBC RBC Hgb Hct MCV MCH MCHC RDW Plt Count MPV Neut % (Auto) Lymph % (Auto) [place] % (Auto) Eos % (Auto) Baso % (Auto) Lymph # (Auto) [place] # (Auto) Eos # (Auto) Baso # (Auto) Absolute Neuts (auto) Sodium 136 Potassium 4.9 Chloride 109 H Carbon Dioxide 23 Anion Gap 8 L BUN 49 H Creatinine 3.1 H Est GFR ( Amer) 18 Est GFR (Non-Af Amer) 15 POC Glucose (mg/dL) 114 H 231 H Random Glucose 128 H Calcium 8.0 L Phosphorus 5.3 H Magnesium 1.8 Ferritin Total Bilirubin 0.3 AST 38 H ALT 31 Alkaline Phosphatase 282 H Total Protein 5.8 Albumin 2.8 L Globulin 3.0 Albumin/Globulin Ratio 0.9 L Vitamin B12 Folate Calcium (PTH Intact) Serum Immunofixation Attending/Attestation - Attestation I have personally seen and examined this patient.: Yes I have fully participated in the care of the patient.: Yes I have reviewed all pertinent clinical information: Yes Notes (Text): 12/26/18 15:42 attending note; Patient seen and examined resident in ER. patient is able to open her eyes. follows few commands. Patient is only Divehi-speaking. Patient is a 68 year old east timorese speaking Female with PMHx of CKD, DM2, HTN, HLD, anemia presents to ED with daughter at bedside. Patient was brought in by daughter because of change in mental status, lethargy and weakness since this am. Daughter reports she had visited her this am when she noticed the change in mental status and lethargy. 1. Altered mental status/lethargy; possibly secondary to drug effect due to tramadol and Neurontin. Rule out sepsis. Positive UA. Urine culture sent. Got 1 dose of IV Rocephin. CT head negative for acute CVA. Neurology evaluation appreciated. 2. Chronic kidney disease; baseline creatinine not known. Monitor closely. 3. Anemia; hemoglobin is 7.1. Anemia workup ordered. Possible etiologies include GI loss, chronic kidney disease, and deficiency anemia. Type and crossmatch ordered.. Transfuse as needed. 4. hypertension; continue Coreg and norvasc. add meds as needed. 5. diabetes; continue regular insulin sliding scale. upon discharge the patient will follow-up with PMD . admit patient to telemetry and monitored closely. 12/26/18 16:42
--- NOTE | 2018-12-23 18:01 | CT ---
Date of service: 12/23/2018 PROCEDURE: CT HEAD WITHOUT CONTRAST. HISTORY: ams, per neuro COMPARISON: Noncontrast head CT performed 12/23/18 at 1131 hr TECHNIQUE: Axial computed tomography images were obtained through the head/brain without intravenous contrast. Radiation dose: Total exam DLP = 898.65 mGy-cm. This CT exam was performed using one or more of the following dose reduction techniques: Automated exposure control, adjustment of the mA and/or kV according to patient size, and/or use of iterative reconstruction technique. FINDINGS: HEMORRHAGE: No intracranial hemorrhage. BRAIN: No mass effect or edema. The sella appears empty. The miller-white matter differentiation appears intact. Please note that MRI with diffusion imaging is more sensitive in the detection of acute ischemic event. VENTRICLES: No hydrocephalus. CALVARIUM: Unremarkable. PARANASAL SINUSES: Mucosal thickening of the ethmoid air cells. The paranasal sinuses appear otherwise clear. MASTOID AIR CELLS: Unremarkable as visualized. No inflammatory changes. OTHER FINDINGS: None. IMPRESSION: No acute intracranial pathology identified.
[2018-12-23 19:08] LABS: TOTAL IRON BINDING CAPACITY 241 ug/dL (265-497)
[2018-12-23 19:11] LABS: % IRON SATURATION 4 % (20-55); IRON 10 ug/dL (45-180)
--- NOTE | 2018-12-23 20:17 | CARD ---
APPROVED REPORT Date of service: 12/23/2018 EKG Measurement Heart [id number] <Conclusion> Normal sinus rhythm Normal ECG
--- NOTE | 2018-12-23 20:35 | US ---
HISTORY: Leg pain and swelling. Evaluate for DVT PHYSICIAN(S): Cullen Valverde MD. TECHNIQUE: Duplex sonography and color-flow Doppler with graded compression were used to evaluate the deep venous systems of both lower extremities. The exam is limited by edema. The tibial veins are not well seen FINDINGS: The visualized deep venous systems of both lower extremities are sonographically normal and compressible. Normal wave forms and augmentation are seen. There is no sonographic evidence for deep venous thrombosis in the visualized segments of both lower extremities. IMPRESSION: No sonographic evidence for deep venous thrombosis in the visualized segments of both lower extremities. Limited study.
[2018-12-24] MEDS ORDERED: Dextrose 50% SYRINGE Inj (50 ml) IV PRN (00:53)
[2018-12-24] MEDS: Insulin Reg-LOW-Coverage SC SCH ×5 (01:37→22:00)
[2018-12-24 06:04] VITALS: BMI 31.2
--- NOTE | 2018-12-24 08:04 | CP.PCM.PN ---
Subjective - Date & Time of Evaluation Date of Evaluation: 12/24/18 Time of Evaluation: 07:58 - Subjective Subjective: Neurology Progress Note: Patient seen and assessed at bedside. No acute events overnight. Patient reports that her lower extremity weakness has improved since admission and denies any new complaints at this time. Further 12 point ROS unremarkable at this time. Objective - Vital Signs/Intake and Output Vital Signs (last 24 hours): Temp Pulse Resp BP Pulse Ox 97.6 F 72 19 173/71 H 100 12/24/18 06:00 12/24/18 06:00 12/24/18 06:00 12/24/18 06:00 12/24/18 06:00 - Medications Medications: Current Medications Amlodipine Besylate (Norvasc) 10 mg PO DAILY [facility] Atorvastatin Calcium (Lipitor) 40 mg PO DAILY [facility] Last Admin: 12/24/18 05:12 Dose: Not Given Carvedilol (Coreg) 12.5 mg PO BID [facility] Last Admin: 12/24/18 05:12 Dose: Not Given Dextrose (Dextrose 50% Inj) 0 ml IV STAT PRN; Protocol PRN Reason: Hypoglycemia Protocol Glimepiride (Amaryl) 2 mg PO DAILY [facility] Ceftriaxone Sodium (Rocephin 1 Gram Ivpb) 1 gm in 100 mls @ 100 mls/hr IVPB DAILY [facility]; Protocol Dextrose (Dextrose 5% In Water 1000 Ml) 1,000 mls @ 0 mls/hr IV .Q0M PRN; Protocol PRN Reason: Hypoglycemia Protocol Insulin Human Regular (Humulin R Low) 0 units SC ACHS [facility]; Protocol Last Admin: 12/24/18 01:37 Dose: Not Given Sevelamer HCl (Renagel) 800 mg PO WM [facility] Last Admin: 12/24/18 05:12 Dose: Not Given - Labs Labs: 12/23/18 10:56 12/23/18 10:56 PT 13.4 SECONDS (9.4-12.5) H 12/23/18 10:56 INR 1.19 12/23/18 10:56 APTT 35.0 Seconds (26.9-38.3) 12/23/18 10:56 - Additional Findings Additional findings: - Constitutional - Head Exam Head Exam: ATRAUMATIC, NORMOCEPHALIC - Eye Exam Eye Exam: EOMI, Normal appearance, PERRL Pupil Exam: NORMAL ACCOMODATION, PERRL - Respiratory Exam Respiratory Exam: Clear to Auscultation Bilateral, NORMAL BREATHING PATTERN. absent: Respiratory Distress - Cardiovascular Exam Cardiovascular Exam: REGULAR RHYTHM - Extremities Exam Extremities exam: Positive for: pedal edema - Expanded Neurological Exam Expanded Patient oriented to: person, place, time Cranial nerves: EOM's Intact: Normal, Facial Palsey w/Forehead Movement: Normal, Facial Palsey w/o Forehead Movement: Normal, Facial Sensation: Normal, Gag Reflex: Normal, Nystagmus: Normal, Tongue Deviation: Normal Neuro motor strength exam: Left Upper Extremity: 5, Right Upper Extremity: 5, Left Lower Extremity: 5, Right Lower Extremity: 5 Coma Scale Eye Opening: SPONTANEOUS Coma Scale Motor Response: OBEYS COMMANDS Coma Scale Verbal: Oriented Coma Scale Total: 15 - Skin Skin Exam: Dry, Intact, Normal Color, Warm Assessment and Plan - Assessment and Plan (Free Text) Assessment: 68 year old female with a past medical history significant for HTN, HLD, CKD, unspecified anemia and DM2 who presented with AMS. A code stroke was activated on arrival to the ED and her initial NIHSS stroke scale of 0. Plan: -CT Head negative for any acute or chronic intracranial pathology -MRI Brain and 2D Echocardiogram pending -Continue Lipitor -Follow up PT recommendations -Continue treatment of UTI as per primary team -Continue treatment of anemia as per hematology team -Further recommendations as per Dr. Trujillo Patient seen and case discussed with attending, Dr. Trujillo. José Miguel Garcia PGY2
[2018-12-24 09:14] LABS: ALB/GLOB RATIO 0.9 (1.1-1.8); ALBUMIN 2.9 g/dL (3.0-4.8); CALCIUM 8.7 mg/dL (8.4-10.5)
--- NOTE | 2018-12-24 09:34 | CP.PCM.CON ---
<GuevaraMann - Last Filed: 12/24/18 15:14> History of Present Illness - History of Present Illness History of Present Illness: Mann Waterman PGY2 Nephrology Consult Note for Dr. Santiago Reason for consult: JOSUE on CKD [employer] [place], ID# [id number] Ms. Stern is a 68 year old female with a PMH of DM2, CKD stage GIV, HTN, Anemia (iron deficiency +/- chronic inflammation), fatty liver, UTI and obesity Who is admitted for weakness likely 2/2 toxic metabolic encephalopathy due to UTI. Nephrology is consulted for JOSUE w/ underlying CKD. CODE STROKE was activated and neurology team is also following. Patient currently denies any fevers/chills, n/v/d, urinary frequency, dysuria, urinary changes. Urine culture is pending, but UA shows +nitrates w/ WBCs. UA also shows 3+ proteinuria. 12-pt ROS was reviewed and is otherwise unremarkable. PMD's office was contacted and the forest fire control officer will fax the renal biopsy report; ordering remarketing rep was Dr. Alonzo Brown ([phone]). Dr. Santiago had a lengthy discussion with the patient and her daughter using a cryogenic transport driver about the possibility of future dialysis and options. Patient stated that she has not had the discussion about dialysis before with her PMD or other physicians. PMD: Dr. Cornelius Epstein ([phone]; [place]) PMH: as above PSH: unspecified stomach tumor removal, appendectomy, cholecystectomy, thyroid surgery, back surgery Meds: reviewed on JAN; Pharmacy is [facility] and meds were prescribed by her PMD and no remarketing rep Allergies: NKDA SHx: Previous history of light smoking FHx: Father: DM2 Review of Systems - Review of Systems All systems: reviewed and no additional remarkable complaints except (as per HPI) Past Patient History - Infectious Disease Hx of Infectious Diseases: None - Tetanus Immunizations Tetanus Immunization: Unknown - Past Social History Smoking Status: Former Smoker Alcohol: None Drugs: Denies Home Situation {Lives}: With Family - CARDIAC Hx Hypertension: Yes - PULMONARY Hx Respiratory Disorders: No - NEUROLOGICAL Hx Neurological Disorder: No - HEENT Hx HEENT Problems: No - RENAL Hx Chronic Kidney Disease: Yes Hx Dialysis: No - ENDOCRINE/METABOLIC Hx Diabetes Mellitus Type 2: Yes - HEMATOLOGICAL/ONCOLOGICAL Hx Anemia: Yes - INTEGUMENTARY Hx Dermatological Problems: No - MUSCULOSKELETAL/RHEUMATOLOGICAL Hx Falls: No - GASTROINTESTINAL Hx Fatty Liver Disease: Yes - GENITOURINARY/GYNECOLOGICAL Hx Genitourinary Disorders: No - PSYCHIATRIC Hx Substance Use: No - SURGICAL HISTORY Other/Comment: unknown surgery - ANESTHESIA Hx Anesthesia: Yes Hx Anesthesia Reactions: No Hx Malignant Hyperthermia: No Meds Allergies/Adverse Reactions: Allergies Allergy/AdvReac Type Severity Reaction Status Date / Time No Known Allergies Allergy Verified 12/23/18 11:46 - Medications Medications: Current Medications Amlodipine Besylate (Norvasc) 10 mg PO DAILY [facility] Last Admin: 12/24/18 09:18 Dose: 10 mg Atorvastatin Calcium (Lipitor) 40 mg PO DAILY [facility] Last Admin: 12/24/18 09:17 Dose: 40 mg Carvedilol (Coreg) 12.5 mg PO BID [facility] Last Admin: 12/24/18 09:17 Dose: 12.5 mg Dextrose (Dextrose 50% Inj) 0 ml IV STAT PRN; Protocol PRN Reason: Hypoglycemia Protocol Glimepiride (Amaryl) 2 mg PO DAILY [facility] Ceftriaxone Sodium (Rocephin 1 Gram Ivpb) 1 gm in 100 mls @ 100 mls/hr IVPB DAILY [facility]; Protocol Last Admin: 12/24/18 09:17 Dose: 100 mls/hr Dextrose (Dextrose 5% In Water 1000 Ml) 1,000 mls @ 0 mls/hr IV .Q0M PRN; Protocol PRN Reason: Hypoglycemia Protocol Insulin Human Regular (Humulin R Low) 0 units SC ACHS [facility]; Protocol Last Admin: 12/24/18 08:26 Dose: Not Given Sevelamer HCl (Renagel) 800 mg PO WM [facility] Last Admin: 12/24/18 09:17 Dose: 800 mg Physical Exam - Constitutional Appears: Non-toxic, No Acute Distress - Head Exam Head Exam: ATRAUMATIC, NORMAL INSPECTION - Eye Exam Eye Exam: EOMI, Normal appearance, PERRL - ENT Exam ENT Exam: Mucous Membranes Moist, Normal Exam - Neck Exam Neck exam: Positive for: Full Rom, Normal Inspection - Respiratory Exam Respiratory Exam: NORMAL BREATHING PATTERN. absent: Rales, Rhonchi, Wheezes, Respiratory Distress - Cardiovascular Exam Cardiovascular Exam: RRR, +S1, +S2. absent: Systolic Murmur - GI/Abdominal Exam GI & Abdominal Exam: Normal Bowel Sounds, Soft. absent: Distended, Tenderness Additional comments: obese body habitus - Extremities Exam Extremities exam: Positive for: pedal edema (2+ b/l), tenderness, pedal pulses present - Back Exam Back exam: NORMAL INSPECTION. absent: CVA tenderness (L), CVA tenderness (R) - Neurological Exam Neurological exam: Alert, CN II-XII Intact, Oriented x3 - Psychiatric Exam Psychiatric exam: Normal Mood - Skin Skin Exam: Dry, Normal Color, Warm Results - Vital Signs Recent Vital Signs: Last Vital Signs Temp 97.6 F 12/24/18 06:00 Pulse 73 12/24/18 09:17 Resp 19 12/24/18 06:00 BP 177/90 H 12/24/18 09:18 Pulse Ox 100 12/24/18 06:00 - Labs Result Diagrams: 12/24/18 10:30 12/24/18 08:50 Labs: Laboratory Results - last 24 hr 12/23/18 12/23/18 12/23/18 10:52 10:56 10:56 WBC 13.2 H RBC 2.24 L Hgb 7.1 L Hct 21.7 L MCV 96.9 MCH 31.7 MCHC 32.7 RDW 14.3 Plt Count 227 MPV 10.3 Neut % (Auto) 80.9 H Lymph % (Auto) 9.0 L [place] % (Auto) 9.6 H Eos % (Auto) 0.3 L Baso % (Auto) 0.2 Lymph # (Auto) 1.2 [place] # (Auto) 1.3 H Eos # (Auto) 0.0 Baso # (Auto) 0.02 Absolute Neuts (auto) 10.67 H PT 13.4 H INR 1.19 APTT 35.0 pO2 VBG pH VBG pCO2 VBG HCO3 VBG Total CO2 VBG O2 Sat (Calc) VBG Base Excess VBG Potassium Glucose Lactate FiO2 Sodium Potassium Chloride Carbon Dioxide Anion Gap BUN Creatinine Est GFR ( Amer) Est GFR (Non-Af Amer) POC Glucose (mg/dL) 111 H Random Glucose Hemoglobin A1c Calcium Phosphorus Magnesium Iron TIBC % Saturation Total Bilirubin AST ALT Alkaline Phosphatase Lactate Dehydrogenase Total Creatine Kinase Troponin I NT-Pro-B Natriuret Pep Total Protein Albumin Globulin Albumin/Globulin Ratio Triglycerides Cholesterol LDL Cholesterol Direct HDL Cholesterol Procalcitonin TSH 3rd Generation Venous Blood Potassium Urine Color Urine Appearance Urine pH Ur Specific [place] Urine Protein Urine Glucose (UA) Urine Ketones Urine Blood Urine Nitrate Urine Bilirubin Urine Urobilinogen Ur Leukocyte Esterase Urine RBC Urine WBC Ur Epithelial Cells Amorphous Sediment Urine Bacteria Urine Other Salicylates Urine Opiates Screen Urine Methadone Screen Ur Barbiturates Screen Ur Phencyclidine Scrn Ur Amphetamines Screen U Benzodiazepines Scrn U Oth Cocaine Metabols U Cannabinoids Screen Blood Type Blood Type Confirm Antibody Screen BBK History Checked 12/23/18 12/23/18 12/23/18 10:56 11:10 11:30 WBC RBC Hgb Hct MCV MCH MCHC RDW Plt Count MPV Neut % (Auto) Lymph % (Auto) [place] % (Auto) Eos % (Auto) Baso % (Auto) Lymph # (Auto) [place] # (Auto) Eos # (Auto) Baso # (Auto) Absolute Neuts (auto) PT INR APTT pO2 35 VBG pH 7.38 VBG pCO2 41.0 VBG HCO3 24.3 VBG Total CO2 25.6 VBG O2 Sat (Calc) 75.9 H VBG Base Excess -0.8 L VBG Potassium 5.0 Glucose 107 H Lactate 0.8 FiO2 21.0 Sodium 139 141.0 Potassium 4.7 Chloride 112 H 114.0 H Carbon Dioxide 23 Anion Gap 9 L BUN 51 H Creatinine 3.0 H Est GFR ( Amer) 19 Est GFR (Non-Af Amer) 16 POC Glucose (mg/dL) Random Glucose 118 H Hemoglobin A1c Calcium 8.5 Phosphorus Magnesium Iron TIBC % Saturation Total Bilirubin 0.3 AST 64 H D ALT 39 Alkaline Phosphatase 192 H D Lactate Dehydrogenase 824 H Total Creatine Kinase 137 Troponin I 0.02 D NT-Pro-B Natriuret Pep Total Protein 5.7 L Albumin 2.7 L Globulin 2.9 Albumin/Globulin Ratio 0.9 L Triglycerides Cholesterol LDL Cholesterol Direct HDL Cholesterol Procalcitonin TSH 3rd Generation Venous Blood Potassium 5.0 Urine Color Urine Appearance Urine pH Ur Specific [place] Urine Protein Urine Glucose (UA) Urine Ketones Urine Blood Urine Nitrate Urine Bilirubin Urine Urobilinogen Ur Leukocyte Esterase Urine RBC Urine WBC Ur Epithelial Cells Amorphous Sediment Urine Bacteria Urine Other Salicylates < 1 L Urine Opiates Screen Urine Methadone Screen Ur Barbiturates Screen Ur Phencyclidine Scrn Ur Amphetamines Screen U Benzodiazepines Scrn U Oth Cocaine Metabols U Cannabinoids Screen Blood Type Blood Type Confirm Antibody Screen BBK History Checked 12/23/18 12/23/18 12/23/18 11:30 12:40 12:40 WBC RBC Hgb Hct MCV MCH MCHC RDW Plt Count MPV Neut % (Auto) Lymph % (Auto) [place] % (Auto) Eos % (Auto) Baso % (Auto) Lymph # (Auto) [place] # (Auto) Eos # (Auto) Baso # (Auto) Absolute Neuts (auto) PT INR APTT pO2 VBG pH VBG pCO2 VBG HCO3 VBG Total CO2 VBG O2 Sat (Calc) VBG Base Excess VBG Potassium Glucose Lactate FiO2 Sodium Potassium Chloride Carbon Dioxide Anion Gap BUN Creatinine Est GFR ( Amer) Est GFR (Non-Af Amer) POC Glucose (mg/dL) Random Glucose Hemoglobin A1c Calcium Phosphorus Magnesium Iron TIBC % Saturation Total Bilirubin AST ALT Alkaline Phosphatase Lactate Dehydrogenase Total Creatine Kinase Troponin I NT-Pro-B Natriuret Pep 6550 H Total Protein Albumin Globulin Albumin/Globulin Ratio Triglycerides Cholesterol LDL Cholesterol Direct HDL Cholesterol Procalcitonin TSH 3rd Generation Venous Blood Potassium Urine Color Yellow Urine Appearance Slight-cloudy Urine pH 6.0 Ur Specific [place] 1.025 Urine Protein >=300 H Urine Glucose (UA) Negative Urine Ketones Negative Urine Blood Small H Urine Nitrate Positive H Urine Bilirubin Negative Urine Urobilinogen 0.2 Ur Leukocyte Esterase Trace H Urine RBC 10 - 15 H Urine WBC 5 - 10 H Ur Epithelial Cells 4 - 5 Amorphous Sediment Few Urine Bacteria Many Urine Other Uyeast Salicylates Urine Opiates Screen Negative Urine Methadone Screen Negative Ur Barbiturates Screen Negative Ur Phencyclidine Scrn Negative Ur Amphetamines Screen Negative U Benzodiazepines Scrn Negative U Oth Cocaine Metabols Negative U Cannabinoids Screen Negative Blood Type Blood Type Confirm Antibody Screen BBK History Checked 12/23/18 12/23/18 12/23/18 13:20 16:12 16:50 WBC RBC Hgb Hct MCV MCH MCHC RDW Plt Count MPV Neut % (Auto) Lymph % (Auto) [place] % (Auto) Eos % (Auto) Baso % (Auto) Lymph # (Auto) [place] # (Auto) Eos # (Auto) Baso # (Auto) Absolute Neuts (auto) PT INR APTT pO2 VBG pH VBG pCO2 VBG HCO3 VBG Total CO2 VBG O2 Sat (Calc) VBG Base Excess VBG Potassium Glucose Lactate FiO2 Sodium Potassium Chloride Carbon Dioxide Anion Gap BUN Creatinine Est GFR ( Amer) Est GFR (Non-Af Amer) POC Glucose (mg/dL) Random Glucose Hemoglobin A1c 5.9 Calcium Phosphorus Magnesium Iron TIBC % Saturation Total Bilirubin AST ALT Alkaline Phosphatase Lactate Dehydrogenase Total Creatine Kinase Troponin I NT-Pro-B Natriuret Pep Total Protein Albumin Globulin Albumin/Globulin Ratio Triglycerides Cholesterol LDL Cholesterol Direct HDL Cholesterol Procalcitonin TSH 3rd Generation 0.97 Venous Blood Potassium Urine Color Urine Appearance Urine pH Ur Specific [place] Urine Protein Urine Glucose (UA) Urine Ketones Urine Blood Urine Nitrate Urine Bilirubin Urine Urobilinogen Ur Leukocyte Esterase Urine RBC Urine WBC Ur Epithelial Cells Amorphous Sediment Urine Bacteria Urine Other Salicylates Urine Opiates Screen Urine Methadone Screen Ur Barbiturates Screen Ur Phencyclidine Scrn Ur Amphetamines Screen U Benzodiazepines Scrn U Oth Cocaine Metabols U Cannabinoids Screen Blood Type O POSITIVE Blood Type Confirm Antibody Screen Negative BBK History Checked No verified bt 12/23/18 12/23/18 12/23/18 16:50 16:50 18:00 WBC RBC Hgb Hct MCV MCH MCHC RDW Plt Count MPV Neut % (Auto) Lymph % (Auto) [place] % (Auto) Eos % (Auto) Baso % (Auto) Lymph # (Auto) [place] # (Auto) Eos # (Auto) Baso # (Auto) Absolute Neuts (auto) PT INR APTT pO2 VBG pH VBG pCO2 VBG HCO3 VBG Total CO2 VBG O2 Sat (Calc) VBG Base Excess VBG Potassium Glucose Lactate FiO2 Sodium Potassium Chloride Carbon Dioxide Anion Gap BUN Creatinine Est GFR ( Amer) Est GFR (Non-Af Amer) POC Glucose (mg/dL) Random Glucose Hemoglobin A1c Calcium Phosphorus 4.7 H Magnesium Iron TIBC % Saturation Total Bilirubin AST ALT Alkaline Phosphatase Lactate Dehydrogenase Total Creatine Kinase Troponin I NT-Pro-B Natriuret Pep Total Protein Albumin Globulin Albumin/Globulin Ratio Triglycerides Cholesterol LDL Cholesterol Direct HDL Cholesterol Procalcitonin 5.79 H TSH 3rd Generation Venous Blood Potassium Urine Color Urine Appearance Urine pH Ur Specific [place] Urine Protein Urine Glucose (UA) Urine Ketones Urine Blood Urine Nitrate Urine Bilirubin Urine Urobilinogen Ur Leukocyte Esterase Urine RBC Urine WBC Ur Epithelial Cells Amorphous Sediment Urine Bacteria Urine Other Salicylates Urine Opiates Screen Urine Methadone Screen Ur Barbiturates Screen Ur Phencyclidine Scrn Ur Amphetamines Screen U Benzodiazepines Scrn U Oth Cocaine Metabols U Cannabinoids Screen Blood Type Blood Type Confirm O POSITIVE Antibody Screen BBK History Checked 12/23/18 12/23/18 12/24/18 18:20 23:15 04:30 WBC RBC Hgb Hct MCV MCH MCHC RDW Plt Count MPV Neut % (Auto) Lymph % (Auto) [place] % (Auto) Eos % (Auto) Baso % (Auto) Lymph # (Auto) [place] # (Auto) Eos # (Auto) Baso # (Auto) Absolute Neuts (auto) PT INR APTT pO2 VBG pH VBG pCO2 VBG HCO3 VBG Total CO2 VBG O2 Sat (Calc) VBG Base Excess VBG Potassium Glucose Lactate FiO2 Sodium Potassium Chloride Carbon Dioxide Anion Gap BUN Creatinine Est GFR ( Amer) Est GFR (Non-Af Amer) POC Glucose (mg/dL) 75 77 Random Glucose Hemoglobin A1c Calcium Phosphorus Magnesium Iron 10 L TIBC 241 L % Saturation 4 L Total Bilirubin AST ALT Alkaline Phosphatase Lactate Dehydrogenase Total Creatine Kinase Troponin I NT-Pro-B Natriuret Pep Total Protein Albumin Globulin Albumin/Globulin Ratio Triglycerides Cholesterol LDL Cholesterol Direct HDL Cholesterol Procalcitonin TSH 3rd Generation Venous Blood Potassium Urine Color Urine Appearance Urine pH Ur Specific [place] Urine Protein Urine Glucose (UA) Urine Ketones Urine Blood Urine Nitrate Urine Bilirubin Urine Urobilinogen Ur Leukocyte Esterase Urine RBC Urine WBC Ur Epithelial Cells Amorphous Sediment Urine Bacteria Urine Other Salicylates Urine Opiates Screen Urine Methadone Screen Ur Barbiturates Screen Ur Phencyclidine Scrn Ur Amphetamines Screen U Benzodiazepines Scrn U Oth Cocaine Metabols U Cannabinoids Screen Blood Type Blood Type Confirm Antibody Screen BBK History Checked 12/24/18 12/24/18 08:19 08:50 WBC RBC Hgb Hct MCV MCH MCHC RDW Plt Count MPV Neut % (Auto) Lymph % (Auto) [place] % (Auto) Eos % (Auto) Baso % (Auto) Lymph # (Auto) [place] # (Auto) Eos # (Auto) Baso # (Auto) Absolute Neuts (auto) PT INR APTT pO2 VBG pH VBG pCO2 VBG HCO3 VBG Total CO2 VBG O2 Sat (Calc) VBG Base Excess VBG Potassium Glucose Lactate FiO2 Sodium 141 Potassium 4.8 Chloride 112 H Carbon Dioxide 24 Anion Gap 9 L BUN 52 H Creatinine 3.3 H Est GFR ( Amer) 17 Est GFR (Non-Af Amer) 14 POC Glucose (mg/dL) 88 Random Glucose 90 Hemoglobin A1c Calcium 8.7 Phosphorus 5.9 H Magnesium 1.8 Iron TIBC % Saturation Total Bilirubin 0.4 AST 41 H D ALT 38 Alkaline Phosphatase 204 H Lactate Dehydrogenase Total Creatine Kinase Troponin I NT-Pro-B Natriuret Pep Total Protein 6.1 Albumin 2.9 L Globulin 3.2 Albumin/Globulin Ratio 0.9 L Triglycerides 114 Cholesterol 136 LDL Cholesterol Direct 46 HDL Cholesterol 49 Procalcitonin TSH 3rd Generation Venous Blood Potassium Urine Color Urine Appearance Urine pH Ur Specific [place] Urine Protein Urine Glucose (UA) Urine Ketones Urine Blood Urine Nitrate Urine Bilirubin Urine Urobilinogen Ur Leukocyte Esterase Urine RBC Urine WBC Ur Epithelial Cells Amorphous Sediment Urine Bacteria Urine Other Salicylates Urine Opiates Screen Urine Methadone Screen Ur Barbiturates Screen Ur Phencyclidine Scrn Ur Amphetamines Screen U Benzodiazepines Scrn U Oth Cocaine Metabols U Cannabinoids Screen Blood Type Blood Type Confirm Antibody Screen BBK History Checked Assessment & Plan - Assessment and Plan (Free Text) Assessment: 68 year old female with a PMH of DM2, CKD stage GIV, HTN, Anemia (iron deficiency +/- chronic inflammation), fatty liver, UTI and obesity Who is admitted for weakness likely 2/2 toxic metabolic encephalopathy due to UTI and symptomatic anemia. Nephrology is consulted for JOSUE w/ underlying CKD. A renal biopsy was done and we are awaiting the report. Plan: JOSUE on CKD stage GIV w/ significant proteinuria - repeating PTH, protein electrophersis, urine total protein - awaiting renal biopsy report to be faxed before decision regarding dialysis - cont Sevelamer - vit D ordered - avoid ACEi/ARBs Anemia (iron deficiency/chronic inflammation) - blood to be given by primary - Aranesp ordered - awaiting ferritin, then will make decision regarding iron supplementation HTN - cont Norvasc, Coreg and clonidine TD - clonidine 0.1mg PO x1 - monitor VS UTI - cont abx - awaiting urine culture Case was reviewed and discussed with Dr. Santiago <Darron Santiago - Last Filed: 12/25/18 06:25> Meds - Medications Medications: Current Medications Amlodipine Besylate (Norvasc) 10 mg PO DAILY [facility] Last Admin: 12/24/18 09:18 Dose: 10 mg Atorvastatin Calcium (Lipitor) 40 mg PO DAILY [facility] Last Admin: 12/24/18 09:17 Dose: 40 mg Carvedilol (Coreg) 12.5 mg PO BID [facility] Last Admin: 12/24/18 17:24 Dose: 12.5 mg Clonidine HCl (Catapres Tts1 0.1 Mg/24 Hr) 1 patch TD QWK [facility] Dextrose (Dextrose 50% Inj) 0 ml IV STAT PRN; Protocol PRN Reason: Hypoglycemia Protocol Glimepiride (Amaryl) 2 mg PO DAILY [facility] Heparin Sodium (Porcine) (Heparin) 5,000 units SC Q12 [facility]; Protocol Last Admin: 12/24/18 22:30 Dose: 5,000 units Dextrose (Dextrose 5% In Water 1000 Ml) 1,000 mls @ 0 mls/hr IV .Q0M PRN; Protocol PRN Reason: Hypoglycemia Protocol Meropenem 250 mg/ Sodium (Chloride) 100 mls @ 100 mls/hr IVPB Q12 [facility]; Protocol Stop: 12/31/18 22:01 Last Admin: 12/24/18 21:32 Dose: 100 mls/hr Insulin Human Regular (Humulin R Low) 0 units SC ACHS [facility]; Protocol Last Admin: 12/24/18 22:00 Dose: Not Given Sevelamer HCl (Renagel) 800 mg PO WM [facility] Last Admin: 12/24/18 16:38 Dose: 800 mg Torsemide (Demadex) 10 mg PO DAILY [facility] Last Admin: 12/24/18 15:20 Dose: 10 mg Results - Vital Signs Recent Vital Signs: Last Vital Signs Temp 97.6 F 12/24/18 20:41 Pulse 72 12/25/18 01:49 Resp 18 12/24/18 20:41 BP 163/66 H 12/24/18 20:41 Pulse Ox 100 12/24/18 06:00 - Labs Result Diagrams: 12/24/18 10:30 12/24/18 08:50 Labs: Laboratory Results - last 24 hr 12/23/18 12/23/18 12/24/18 16:12 18:20 04:30 WBC RBC Hgb Hct MCV MCH MCHC RDW Plt Count MPV Neut % (Auto) Lymph % (Auto) [place] % (Auto) Eos % (Auto) Baso % (Auto) Lymph # (Auto) [place] # (Auto) Eos # (Auto) Baso # (Auto) Absolute Neuts (auto) Sodium Potassium Chloride Carbon Dioxide Anion Gap BUN Creatinine Est GFR ( Amer) Est GFR (Non-Af Amer) POC Glucose (mg/dL) 77 Random Glucose Calcium Phosphorus Magnesium Ferritin 274.0 Total Bilirubin AST ALT Alkaline Phosphatase Total Protein Total Protein (PEP) Albumin Globulin Albumin/Globulin Ratio Triglycerides Cholesterol LDL Cholesterol Direct HDL Cholesterol 25-OH Vitamin D Total Blood Type O POSITIVE Antibody Screen Negative Crossmatch See Detail BBK History Checked No verified bt 12/24/18 12/24/18 12/24/18 08:19 08:50 08:50 WBC RBC Hgb Hct MCV MCH MCHC RDW Plt Count MPV Neut % (Auto) Lymph % (Auto) [place] % (Auto) Eos % (Auto) Baso % (Auto) Lymph # (Auto) [place] # (Auto) Eos # (Auto) Baso # (Auto) Absolute Neuts (auto) Sodium 141 Potassium 4.8 Chloride 112 H Carbon Dioxide 24 Anion Gap 9 L BUN 52 H Creatinine 3.3 H Est GFR ( Amer) 17 Est GFR (Non-Af Amer) 14 POC Glucose (mg/dL) 88 Random Glucose 90 Calcium 8.7 Phosphorus 5.9 H Magnesium 1.8 Ferritin Total Bilirubin 0.4 AST 41 H D ALT 38 Alkaline Phosphatase 204 H Total Protein 6.1 Total Protein (PEP) Albumin 2.9 L Globulin 3.2 Albumin/Globulin Ratio 0.9 L Triglycerides 114 Cholesterol 136 LDL Cholesterol Direct 46 HDL Cholesterol 49 25-OH Vitamin D Total < 12.8 L Blood Type Antibody Screen Crossmatch BBK History Checked 12/24/18 12/24/18 12/24/18 08:50 10:30 12:18 WBC 9.1 D RBC 2.14 L Hgb 6.7 L* Hct 20.8 L* MCV 97.2 MCH 31.3 MCHC 32.2 RDW 14.2 Plt Count 191 MPV 10.5 Neut % (Auto) 77.2 H Lymph % (Auto) 11.9 L [place] % (Auto) 9.3 H Eos % (Auto) 1.4 L Baso % (Auto) 0.2 Lymph # (Auto) 1.1 L [place] # (Auto) 0.9 H Eos # (Auto) 0.1 Baso # (Auto) 0.02 Absolute Neuts (auto) 7.04 H Sodium Potassium Chloride Carbon Dioxide Anion Gap BUN Creatinine Est GFR ( Amer) Est GFR (Non-Af Amer) POC Glucose (mg/dL) 155 H Random Glucose Calcium Phosphorus Magnesium Ferritin Total Bilirubin AST ALT Alkaline Phosphatase Total Protein Total Protein (PEP) 5.2 L Albumin Globulin Albumin/Globulin Ratio Triglycerides Cholesterol LDL Cholesterol Direct HDL Cholesterol 25-OH Vitamin D Total Blood Type Antibody Screen Crossmatch BBK History Checked 12/24/18 12/24/18 16:18 21:30 WBC RBC Hgb Hct MCV MCH MCHC RDW Plt Count MPV Neut % (Auto) Lymph % (Auto) [place] % (Auto) Eos % (Auto) Baso % (Auto) Lymph # (Auto) [place] # (Auto) Eos # (Auto) Baso # (Auto) Absolute Neuts (auto) Sodium Potassium Chloride Carbon Dioxide Anion Gap BUN Creatinine Est GFR ( Amer) Est GFR (Non-Af Amer) POC Glucose (mg/dL) 157 H 167 H Random Glucose Calcium Phosphorus Magnesium Ferritin Total Bilirubin AST ALT Alkaline Phosphatase Total Protein Total Protein (PEP) Albumin Globulin Albumin/Globulin Ratio Triglycerides Cholesterol LDL Cholesterol Direct HDL Cholesterol 25-OH Vitamin D Total Blood Type Antibody Screen Crossmatch BBK History Checked Attending/Attestation - Attestation I have personally seen and examined this patient.: Yes I have fully participated in the care of the patient.: Yes I have reviewed all pertinent clinical information: Yes Notes (Text): Patient seen and examined; I agree with the resident's note as above with the following additions/edits: 68 yo F w/ pmh of htn, dm, and late CKD IV, admitted with weakness in the setting of UTI, nephrology being consulted for advanced renal insufficiency; Patient reportedly was admitted to [facility] in Sep 2018 due to anasarca; at that time patient was thought to have JOSUE with patient reportedly not having known of her pre-existing advanced CKD (serum creatinine on d/c from [facility] in Jul 2018 was 2.5 w/ eGFR already down to 19 ml/min); renal biopsy was therefore undertaken that showed diabetic kidney disease (pathology report obtained by our office today); patient says that she was told her kidney con dition was ok; however, outpatient labs done just 2 weeks ago show serum creatinine 2.9; Patient also reports dyspnea on exertion since past 1 week as well as increased leg swelling during this period; she reports appetite is well, no nausea/vomiting; Based on above info, patient has progressive CKD, currently at late stage IV, and needs to be prepared for impending need for dialysis in the coming few months; discussed at length with patient and daughter at bedside using pile driver; PD vs HD modalities also discussed, will again ask patient tomorrow regarding her decision; Hypertensive CKD with BP uncontrolled; not on JOSE DAVID inhibitor/ARB per PMD records but was on clonidine patch; has evidence of volume overload by exam and symptoms; will restart clonidine patch and give 0.1 mg dose as needed; starting torsemide 10 mg daily; Severe anemia, consistent with advanced CKD; agree with prbc transfusion; giving aranesp 100 mcg x 1; CKD mineral bone disorder with hyperphosphatemia; increase sevelamer to 2 tabs w/ meals; awaiting PTH; Otherwise stable electrolyte status; -avoid nephrotoxic agents; -awaiting vein mapping; -vascular surgery consult for AVF creation (pending patient decision regarding HD v PD); Thank you for this referral, we will be following closely.
[2018-12-24] MEDS ORDERED: cefTRIAXone 1 gm 1 GM/100 ML BAG IVPB SCH (10:00)
[2018-12-24 11:02] LABS: BASO # 0.02 K/mm3 (0.0-2.0); BASO % 0.2 % (0.0-3.0); EOS # 0.1 (0.0-0.7); EOS % 1.4 % (1.5-5.0); LYMPH # 1.1 (1.2-3.4); LYMPH % 11.9 % (22.0-35.0); MEAN CELL VOLUME 97.2 fl (80.0-105.0); MEAN CORPUSCULAR HEMOGLOBIN 31.3 pg (25.0-35.0); MEAN CORPUSCULAR HGB CONC 32.2 g/dl (31.0-37.0); MEAN PLATELET VOLUME 10.5 fl (7.0-11.0); MONO # 0.9 (0.1-0.6); MONO % 9.3 % (1.0-6.0); RBC 2.14 10^6/uL (3.5-6.1); RED CELL DISTRIBUTION WIDTH 14.2 % (11.5-14.5); WHITE BLOOD COUNT 9.1 10^3/uL (4.5-11.0)
[2018-12-24 11:05] LABS: HEMOGLOBIN 6.7 g/dL (12.0-16.0)
[2018-12-24] MEDS ORDERED: Darbepoetin Alfa 100 mcg/ml Inj SC ONE (11:34)
--- NOTE | 2018-12-24 11:40 | CP.PCM.PN ---
Subjective - Date & Time of Evaluation Date of Evaluation: 11/23/18 Time of Evaluation: 12:00 - Subjective Subjective: Interpretor ID: [id number] Objective - Vital Signs/Intake and Output Vital Signs (last 24 hours): Temp Pulse Resp BP Pulse Ox 97.6 F 73 19 177/90 H 100 12/24/18 06:00 12/24/18 09:17 12/24/18 06:00 12/24/18 09:18 12/24/18 06:00 - Medications Medications: Current Medications Amlodipine Besylate (Norvasc) 10 mg PO DAILY [facility] Last Admin: 12/24/18 09:18 Dose: 10 mg Atorvastatin Calcium (Lipitor) 40 mg PO DAILY [facility] Last Admin: 12/24/18 09:17 Dose: 40 mg Carvedilol (Coreg) 12.5 mg PO BID [facility] Last Admin: 12/24/18 09:17 Dose: 12.5 mg Clonidine HCl (Catapres Tts1 0.1 Mg/24 Hr) patch TD QWK [facility] Dextrose (Dextrose 50% Inj) 0 ml IV STAT PRN; Protocol PRN Reason: Hypoglycemia Protocol Glimepiride (Amaryl) 2 mg PO DAILY [facility] Dextrose (Dextrose 5% In Water 1000 Ml) 1,000 mls @ 0 mls/hr IV .Q0M PRN; Protocol PRN Reason: Hypoglycemia Protocol Insulin Human Regular (Humulin R Low) 0 units SC ACHS [facility]; Protocol Last Admin: 12/24/18 08:26 Dose: Not Given Sevelamer HCl (Renagel) [address] [facility] Last Admin: 12/24/18 09:17 Dose: 800 mg - Labs Labs: 12/24/18 10:30 12/24/18 08:50 PT 13.4 SECONDS (9.4-12.5) H 12/23/18 10:56 INR 1.19 12/23/18 10:56 APTT 35.0 Seconds (26.9-38.3) 12/23/18 10:56
[2018-12-24] MEDS ORDERED: Vancomycin 1.5 GM in Sodium Chloride 0.9% 500 ML IVPB ONE (13:41)
[2018-12-24] MEDS ORDERED: MEROPENEM 500 MG in NS 500 MG/50 ML BAG IVPB SCH (13:45)
--- NOTE | 2018-12-24 13:48 | CP.PCM.CON ---
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 coli was brought in by family to [facility] [place] because of lethargy and generalized weakness. The patient was noted to be somnolent in the ED. There is no note of falls or loss of consciousness. Full review of systems is difficult to obtain because the patient is mostly- [place]-speaking but she did say she had no fevers, had some urinary urgency but no dysuria, no flank pain, no nausea or vomiting. Because of her history of ESBL E. coli in the urine, Infectious diseases consult is requested to further evaluate and manage. Review of Systems - Review of Systems All systems: reviewed and no additional remarkable complaints except (as per HPI) Past Patient History - Infectious Disease Hx of Infectious Diseases: None - Tetanus Immunizations Tetanus Immunization: Unknown - Past Social History Smoking Status: Former Smoker Alcohol: None Drugs: Denies Home Situation {Lives}: With Family - CARDIAC Hx Hypertension: Yes - PULMONARY Hx Respiratory Disorders: No - NEUROLOGICAL Hx Neurological Disorder: No - HEENT Hx HEENT Problems: No - RENAL Hx Chronic Kidney Disease: Yes Hx Dialysis: No - ENDOCRINE/METABOLIC Hx Diabetes Mellitus Type 2: Yes - HEMATOLOGICAL/ONCOLOGICAL Hx Anemia: Yes - INTEGUMENTARY Hx Dermatological Problems: No - MUSCULOSKELETAL/RHEUMATOLOGICAL Hx Falls: No - GASTROINTESTINAL Hx Fatty Liver Disease: Yes - GENITOURINARY/GYNECOLOGICAL Hx Genitourinary Disorders: No - PSYCHIATRIC Hx Substance Use: No - SURGICAL HISTORY Other/Comment: unknown surgery - ANESTHESIA Hx Anesthesia: Yes Hx Anesthesia Reactions: No Hx Malignant Hyperthermia: No Meds Allergies/Adverse Reactions: Allergies Allergy/AdvReac Type Severity Reaction Status Date / Time No Known Allergies Allergy Verified 12/23/18 11:46 - Medications Medications: Current Medications Amlodipine Besylate (Norvasc) 10 mg PO DAILY [facility] Last Admin: 12/24/18 09:18 Dose: 10 mg Atorvastatin Calcium (Lipitor) 40 mg PO DAILY [facility] Last Admin: 12/24/18 09:17 Dose: 40 mg Carvedilol (Coreg) 12.5 mg PO BID [facility] Last Admin: 12/24/18 09:17 Dose: 12.5 mg Clonidine HCl (Catapres Tts1 0.1 Mg/24 Hr) 1 patch TD QWK [facility] Dextrose (Dextrose 50% Inj) 0 ml IV STAT PRN; Protocol PRN Reason: Hypoglycemia Protocol Glimepiride (Amaryl) 2 mg PO DAILY [facility] Dextrose (Dextrose 5% In Water 1000 Ml) 1,000 mls @ 0 mls/hr IV .Q0M PRN; Protocol PRN Reason: Hypoglycemia Protocol Insulin Human Regular (Humulin R Low) 0 units SC ACHS [facility]; Protocol Last Admin: 12/24/18 12:55 Dose: Not Given Sevelamer HCl (Renagel) 800 mg PO WM [facility] Last Admin: 12/24/18 12:15 Dose: 800 mg Physical Exam - Constitutional Appears: Non-toxic, No Acute Distress, Chronically Ill, Other (awake, alert) - Head Exam Head Exam: NORMAL INSPECTION - ENT Exam ENT Exam: Mucous Membranes Moist - Neck Exam Neck exam: Negative for: Lymphadenopathy, Meningismus - Respiratory Exam Respiratory Exam: Decreased Breath Sounds - Cardiovascular Exam Cardiovascular Exam: +S1, +S2 - GI/Abdominal Exam GI & Abdominal Exam: Soft. absent: Tenderness - Back Exam Back exam: absent: CVA tenderness (L), CVA tenderness (R) Results - Vital Signs Recent Vital Signs: Last Vital Signs Temp 98 F 12/24/18 12:00 Pulse 70 12/24/18 12:14 Resp 20 12/24/18 12:00 BP 179/89 H 12/24/18 12:14 Pulse Ox 100 12/24/18 06:00 - Labs Result Diagrams: 12/24/18 10:30 12/24/18 08:50 Labs: Laboratory Results - last 24 hr 12/23/18 12/23/18 12/23/18 10:52 13:20 16:12 WBC RBC Hgb Hct MCV MCH MCHC RDW Plt Count MPV Neut % (Auto) Lymph % (Auto) [place] % (Auto) Eos % (Auto) Baso % (Auto) Lymph # (Auto) [place] # (Auto) Eos # (Auto) Baso # (Auto) Absolute Neuts (auto) Sodium Potassium Chloride Carbon Dioxide Anion Gap BUN Creatinine Est GFR ( Amer) Est GFR (Non-Af Amer) POC Glucose (mg/dL) 111 H Random Glucose Hemoglobin A1c Calcium Phosphorus Magnesium Iron TIBC % Saturation Total Bilirubin AST ALT Alkaline Phosphatase Total Protein Albumin Globulin Albumin/Globulin Ratio Triglycerides Cholesterol LDL Cholesterol Direct HDL Cholesterol 25-OH Vitamin D Total Procalcitonin TSH 3rd Generation 0.97 Blood Type O POSITIVE Blood Type Confirm Antibody Screen Negative Crossmatch See Detail BBK History Checked No verified bt 12/23/18 12/23/18 12/23/18 16:50 16:50 16:50 WBC RBC Hgb Hct MCV MCH MCHC RDW Plt Count MPV Neut % (Auto) Lymph % (Auto) [place] % (Auto) Eos % (Auto) Baso % (Auto) Lymph # (Auto) [place] # (Auto) Eos # (Auto) Baso # (Auto) Absolute Neuts (auto) Sodium Potassium Chloride Carbon Dioxide Anion Gap BUN Creatinine Est GFR ( Amer) Est GFR (Non-Af Amer) POC Glucose (mg/dL) Random Glucose Hemoglobin A1c 5.9 Calcium Phosphorus Magnesium Iron TIBC % Saturation Total Bilirubin AST ALT Alkaline Phosphatase Total Protein Albumin Globulin Albumin/Globulin Ratio Triglycerides Cholesterol LDL Cholesterol Direct HDL Cholesterol 25-OH Vitamin D Total Procalcitonin 5.79 H TSH 3rd Generation Blood Type Blood Type Confirm O POSITIVE Antibody Screen Crossmatch BBK History Checked 12/23/18 12/23/18 12/23/18 18:00 18:20 23:15 WBC RBC Hgb Hct MCV MCH MCHC RDW Plt Count MPV Neut % (Auto) Lymph % (Auto) [place] % (Auto) Eos % (Auto) Baso % (Auto) Lymph # (Auto) [place] # (Auto) Eos # (Auto) Baso # (Auto) Absolute Neuts (auto) Sodium Potassium Chloride Carbon Dioxide Anion Gap BUN Creatinine Est GFR ( Amer) Est GFR (Non-Af Amer) POC Glucose (mg/dL) 75 Random Glucose Hemoglobin A1c Calcium Phosphorus 4.7 H Magnesium Iron 10 L TIBC 241 L % Saturation 4 L Total Bilirubin AST ALT Alkaline Phosphatase Total Protein Albumin Globulin Albumin/Globulin Ratio Triglycerides Cholesterol LDL Cholesterol Direct HDL Cholesterol 25-OH Vitamin D Total Procalcitonin TSH 3rd Generation Blood Type Blood Type Confirm Antibody Screen Crossmatch BBK History Checked 12/24/18 12/24/18 12/24/18 04:30 08:19 08:50 WBC RBC Hgb Hct MCV MCH MCHC RDW Plt Count MPV Neut % (Auto) Lymph % (Auto) [place] % (Auto) Eos % (Auto) Baso % (Auto) Lymph # (Auto) [place] # (Auto) Eos # (Auto) Baso # (Auto) Absolute Neuts (auto) Sodium 141 Potassium 4.8 Chloride 112 H Carbon Dioxide 24 Anion Gap 9 L BUN 52 H Creatinine 3.3 H Est GFR ( Amer) 17 Est GFR (Non-Af Amer) 14 POC Glucose (mg/dL) 77 88 Random Glucose 90 Hemoglobin A1c Calcium 8.7 Phosphorus 5.9 H Magnesium 1.8 Iron TIBC % Saturation Total Bilirubin 0.4 AST 41 H D ALT 38 Alkaline Phosphatase 204 H Total Protein 6.1 Albumin 2.9 L Globulin 3.2 Albumin/Globulin Ratio 0.9 L Triglycerides 114 Cholesterol 136 LDL Cholesterol Direct 46 HDL Cholesterol 49 25-OH Vitamin D Total Procalcitonin TSH 3rd Generation Blood Type Blood Type Confirm Antibody Screen Crossmatch BBK History Checked 12/24/18 12/24/18 12/24/18 08:50 10:30 12:18 WBC 9.1 D RBC 2.14 L Hgb 6.7 L* Hct 20.8 L* MCV 97.2 MCH 31.3 MCHC 32.2 RDW 14.2 Plt Count 191 MPV 10.5 Neut % (Auto) 77.2 H Lymph % (Auto) 11.9 L [place] % (Auto) 9.3 H Eos % (Auto) 1.4 L Baso % (Auto) 0.2 Lymph # (Auto) 1.1 L [place] # (Auto) 0.9 H Eos # (Auto) 0.1 Baso # (Auto) 0.02 Absolute Neuts (auto) 7.04 H Sodium Potassium Chloride Carbon Dioxide Anion Gap BUN Creatinine Est GFR ( Amer) Est GFR (Non-Af Amer) POC Glucose (mg/dL) 155 H Random Glucose Hemoglobin A1c Calcium Phosphorus Magnesium Iron TIBC % Saturation Total Bilirubin AST ALT Alkaline Phosphatase Total Protein Albumin Globulin Albumin/Globulin Ratio Triglycerides Cholesterol LDL Cholesterol Direct HDL Cholesterol 25-OH Vitamin D Total < 12.8 L Procalcitonin TSH 3rd Generation Blood Type Blood Type Confirm Antibody Screen Crossmatch BBK History Checked Assessment & Plan - Assessment and Plan (Free Text) Plan: Asssessment systemic inflammatory response syndrome, consider sepsis due to UTI with gram positive cocci and gram negative bacilli history of right pyelonephritis with ESBL E. 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
--- NOTE | 2018-12-24 14:14 | MRI ---
Date of service: 12/24/2018 PROCEDURE: MRI BRAIN WITHOUT CONTRAST HISTORY: r/o stroke COMPARISON: None available. TECHNIQUE: Multiplanar, multisequence MR images of the brain were obtained without intravenous contrast enhancement. There was some motion artifact on the study. FINDINGS: HEMORRHAGE: None DWI: No evidence of an acute or early subacute infarction. BRAIN PARENCHYMA: No mass effect or edema. No atrophy or chronic microvascular ischemic changes. VENTRICLES: Unremarkable. No hydrocephalus. CRANIUM: Unremarkable. ORBITS: Grossly unremarkable. PARANASAL SINUSES/MASTOIDS: Clear VASCULAR SYSTEM: Skull base flow voids intact. OTHER FINDINGS: None. IMPRESSION: No acute intracranial findings
--- NOTE | 2018-12-24 14:56 | CARD ---
APPROVED REPORT Date of service: 12/24/2018 EXAM: Two-dimensional and M-mode echocardiogram with Doppler and color Doppler. INDICATION Congestive Heart Failure 2D DIMENSIONS Left Atrium (2D)4.0 (1.6-4.0cm)IVSd1.2 (0.7-1.1cm) LVDd5.6 (3.9-5.9cm)PWd1.1 (0.7-1.1cm) LVDs3.8 (2.5-4.0cm)FS (%) 31.2 % LVEF (%)58.5 (>50%) M-Mode DIMENSIONS Aortic Root2.50 (2.2-3.7cm)Aortic Cusp Exc.1.30 (1.5-2.0cm) Aortic Valve AoV Peak Syashkaj426.0cm/Wiley Peak GR.9mmHg Mitral Valve MV E Phifjlvs90.8cm/sMV A Qxtkppjt924.0cm/sE/A ratio0.8 TDI E/Lateral E'0.0E/Medial E'0.0 Tricuspid Valve TR Peak [id number]/sRAP [id number] Peak Gr.8mmHg [id number] LEFT VENTRICLE The left ventricle is normal size. There is normal left ventricular wall thickness. The left ventricular function is normal. The left ventricular ejection fraction is within the normal range. There is normal LV segmental wall motion. Transmitral Doppler flow pattern is Grade I-abnormal relaxation pattern. RIGHT VENTRICLE The right ventricle is normal size. There is normal right ventricular wall thickness. The right ventricular systolic function is normal. ATRIA The left atrium size is normal. The right atrium size is normal. AORTIC VALVE The aortic valve is not well visualized. No aortic regurgitation is present. There is no aortic valvular stenosis. MITRAL VALVE The mitral valve is not well visualized. There is no mitral valve regurgitation noted. There is no mitral valve stenosis. TRICUSPID VALVE The tricuspid valve is normal in structure. There is trace tricuspid regurgitation. PULMONIC VALVE The pulmonary valve is normal in structure. There is no pulmonic valvular regurgitation. GREAT VESSELS The aortic root is normal in size. The IVC is normal in size and collapses >50% with inspiration. PERICARDIAL EFFUSION There is a trace pericardial effusion. <Conclusion> The left ventricle is normal size. There is normal left ventricular wall thickness. The left ventricular function is normal. The left ventricular ejection fraction is within the normal range. There is normal LV segmental wall motion. Transmitral Doppler flow pattern is Grade I-abnormal relaxation pattern.
--- NOTE | 2018-12-24 17:06 | CP.PCM.PN ---
<Judson Curry - Last Filed: 12/24/18 17:02> Subjective - Date & Time of Evaluation Date of Evaluation: 12/24/18 Time of Evaluation: 12:00 - Subjective Subjective: INTERNAL MEDICINE PROGRESS NOTE FOR DR. MEKA Curry PGY1 Pt seen and examined at bedside this am. No acute events overnight. Pt is more awake and alert today. She denies any acute complaints Objective - Vital Signs/Intake and Output Vital Signs (last 24 hours): Temp Pulse Resp BP Pulse Ox 97.8 F 71 20 165/54 H 100 12/24/18 17:01 12/24/18 17:01 12/24/18 17:01 12/24/18 17:01 12/24/18 06:00 - Medications Medications: Current Medications Amlodipine Besylate (Norvasc) 10 mg PO DAILY [facility] Last Admin: 12/24/18 09:18 Dose: 10 mg Atorvastatin Calcium (Lipitor) 40 mg PO DAILY [facility] Last Admin: 12/24/18 09:17 Dose: 40 mg Carvedilol (Coreg) 12.5 mg PO BID [facility] Last Admin: 12/24/18 09:17 Dose: 12.5 mg Clonidine HCl (Catapres Tts1 0.1 Mg/24 Hr) 1 patch TD QWK [facility] Dextrose (Dextrose 50% Inj) 0 ml IV STAT PRN; Protocol PRN Reason: Hypoglycemia Protocol Glimepiride (Amaryl) 2 mg PO DAILY [facility] Dextrose (Dextrose 5% In Water 1000 Ml) 1,000 mls @ 0 mls/hr IV .Q0M PRN; Protocol PRN Reason: Hypoglycemia Protocol Meropenem 250 mg/ Sodium (Chloride) 100 mls @ 100 mls/hr IVPB Q12 [facility]; Protocol Stop: 12/31/18 22:01 Iron Sucrose 200 mg/ Sodium (Chloride) 110 mls @ 110 mls/hr IVPB ONCE ONE Stop: 12/24/18 17:06 Insulin Human Regular (Humulin R Low) 0 units SC ACHS [facility]; Protocol Last Admin: 12/24/18 16:38 Dose: 1 unit Sevelamer HCl (Renagel) 800 mg PO WM [facility] Last Admin: 12/24/18 16:38 Dose: 800 mg Torsemide (Demadex) 10 mg PO DAILY [facility] Last Admin: 02/06/19 15:20 Dose: 10 mg - Labs Labs: 12/24/18 10:30 12/24/18 08:50 PT 13.4 SECONDS (9.4-12.5) H 12/23/18 10:56 INR 1.19 12/23/18 10:56 APTT 35.0 Seconds (26.9-38.3) 12/23/18 10:56 - Additional Findings Additional findings: - Constitutional Appears: Well, Non-toxic, No Acute Distress, Chronically Ill - Head Exam Head Exam: NORMAL INSPECTION, NORMOCEPHALIC - Eye Exam Eye Exam: EOMI, Normal appearance - ENT Exam ENT Exam: Mucous Membranes Moist, Normal Exam - Neck Exam Neck exam: Positive for: Normal Inspection. Negative for: Meningismus - Respiratory Exam Respiratory Exam: Clear to Auscultation Bilateral, NORMAL BREATHING PATTERN - Cardiovascular Exam Cardiovascular Exam: REGULAR RHYTHM, +S1, +S2 - GI/Abdominal Exam GI & Abdominal Exam: Soft. absent: Distended, Guarding Additional comments: appendectomy & cholecystectomy scars noted. C/D/I - Extremities Exam Extremities exam: Positive for: pedal edema. Negative for: calf tenderness - Back Exam Back exam: NORMAL INSPECTION - Neurological Exam Neurological exam: Alert Additional comments: Oriented x 2 - Psychiatric Exam Psychiatric exam: Normal Affect - Skin Skin Exam: Dry, Intact, Warm Assessment and Plan - Assessment and Plan (Free Text) Assessment: 68 y/o tunisian speaking F with PMHx of CKD, DM2, HTN, HLD, anemia presents to ED for change mental status, lethargy and weakness in the setting of UTI and symptomatic anemia Plan: Toxic metabolic encephalopathy Likely 2/2 to UTI. U/A revealing (+) nitrate. Leukocytsis. Treat with IV meropenem. Pt has history of ESBL and E. 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 awaiting results Nephro consulted f/u immunofixation, PTH, SPEP, Uprotein, vit D, Ferritin Vein mapping for possible fistula Strict I&Os Symptomatic anemia Hgb dropped to 6.7 today transfuse 1upRBC awaiting iron studies obtain FOBT DM2 Continue home glimepiride Insulin SS Accuchecks ACHS Hypertension Continue home amlodipine, carvedilol, clonidine DVT/GI PPx: Hep Dispo: PT/OT Case seen, examined and discussed with attending physician, Dr. Meka Curry PGY1 <Geovanni Evangelista - Last Filed: 12/26/18 16:59> Objective - Vital Signs/Intake and Output Vital Signs (last 24 hours): Temp Pulse Resp BP Pulse Ox 97.9 F 65 20 173/72 H 99 12/26/18 12:00 12/26/18 12:00 12/26/18 12:00 12/26/18 12:00 12/26/18 06:00 Intake and Output: 12/26/18 12/26/18 06:59 18:59 Intake Total 0 Balance 0 - Medications Medications: Current Medications Amlodipine Besylate (Norvasc) 10 mg PO DAILY [facility] Last Admin: 12/26/18 10:10 Dose: Not Given Atorvastatin Calcium (Lipitor) 40 mg PO DAILY [facility] Last Admin: 12/26/18 10:09 Dose: 40 mg Carvedilol (Coreg) 12.5 mg PO BID [facility] Last Admin: 12/26/18 10:09 Dose: 12.5 mg Clonidine HCl (Catapres Tts1 0.1 Mg/24 Hr) 1 patch TD QWK [facility] Last Admin: 12/25/18 10:47 Dose: 1 patch Clonidine HCl (Catapres) 0.1 mg PO BID [facility] Stop: 12/26/18 18:01 Last Admin: 12/26/18 10:09 Dose: 0.1 mg Dextrose (Dextrose 50% Inj) 0 ml IV STAT PRN; Protocol PRN Reason: Hypoglycemia Protocol Glimepiride (Amaryl) 2 mg PO DAILY [facility] Heparin Sodium (Porcine) (Heparin) 5,000 units SC Q12 [facility]; Protocol Last Admin: 12/26/18 10:09 Dose: 5,000 units Dextrose (Dextrose 5% In Water 1000 Ml) 1,000 mls @ 0 mls/hr IV .Q0M PRN; Protocol PRN Reason: Hypoglycemia Protocol Meropenem 250 mg/ Sodium (Chloride) 100 mls @ 100 mls/hr IVPB Q12 [facility]; Protocol Stop: 12/31/18 22:01 Last Admin: 12/26/18 11:25 Dose: 100 mls/hr Insulin Human Regular (Humulin R Low) 0 units SC ACHS [facility]; Protocol Last Admin: 12/26/18 13:29 Dose: 2 unit Sevelamer HCl (Renagel) 800 mg PO WM [facility] Last Admin: 12/26/18 13:29 Dose: 800 mg Torsemide (Demadex) 10 mg PO DAILY [facility] Last Admin: 12/26/18 10:09 Dose: 10 mg - Labs Labs: 12/26/18 07:35 12/26/18 07:35 PT 13.4 SECONDS (9.4-12.5) H 12/23/18 10:56 INR 1.19 12/23/18 10:56 APTT 35.0 Seconds (26.9-38.3) 12/23/18 10:56 Attending/Attestation - Attestation I have personally seen and examined this patient.: Yes I have fully participated in the care of the patient.: Yes I have reviewed all pertinent clinical information, including history, physical exam and plan: Yes Notes (Text): 12/26/18 16:44 attending note; Patient seen and examined resident. patient is more alert and awake. Able to communicate with home health lvn. Still poor historian. Patient is a 68 year old tunisian speaking Female with PMHx of CKD, DM2, HTN, HLD, anemia presents to ED with daughter at bedside. Patient was brought in by daughter because of change in mental status, lethargy and weakness since this am. Daughter reports she had visited her this am when she noticed the change in mental status and lethargy. 1. Altered mental status/lethargy; toxic metabolic encephalopathy. possibly secondary to UIT. urine culture is positive. Started on Merem. ID evaluation requested. CT head negative for acute CVA. MRI of the head is negative. Neurology evaluation appreciated. 2. Chronic kidney disease; creatinine is 3.3. Nephrology evaluation appreciated. continue torsemide. clonidine patch. patient had recent biopsy at [facility]. Patient had advanced diabetic nephropathy. 3. Anemia; hemoglobin is 6.7. 1 unit PRBC transfusion ordered. Stool guaiac is positive. GI evaluation requested. 4. iron deficiency anemia/anemia of chronic disease. hematology evaluation requested. Type and crossmatch ordered.. Transfuse as needed. 4. hypertension; continue Coreg and norvasc. add meds as needed. 5. diabetes; continue regular insulin sliding scale. 6. lower extremity edema; lower extremity Doppler is negative. PT evaluation requested. upon discharge the patient will follow-up with PMD . 12/26/18 16:58
--- NOTE | 2018-12-25 06:42 | CP.PCM.PN ---
<Starla Brown - Last Filed: 12/25/18 12:19> Subjective - Date & Time of Evaluation Date of Evaluation: 12/25/18 Time of Evaluation: 07:40 - Subjective Subjective: Nephrology progress note for Dr. Santiago's service Spoke to patient using speech lang path therapist # [phone] Patient with no acute events overnight. Patient sitting comfortable on the bed. Denies cp, sob. No fever or chills. No nausea, vomiting or diarrhea. Objective - Vital Signs/Intake and Output Vital Signs (last 24 hours): Temp Pulse Resp BP Pulse Ox 98.6 F 89 20 133/54 L 98 12/25/18 06:00 12/25/18 06:00 12/25/18 06:00 12/25/18 06:00 12/25/18 06:00 Intake and Output: 12/24/18 12/25/18 18:59 06:59 Intake Total 940 2000 Output Total 400 Balance 940 1600 - Medications Medications: Current Medications Amlodipine Besylate (Norvasc) 10 mg PO DAILY [facility] Last Admin: 12/24/18 09:18 Dose: 10 mg Atorvastatin Calcium (Lipitor) 40 mg PO DAILY [facility] Last Admin: 12/24/18 09:17 Dose: 40 mg Carvedilol (Coreg) 12.5 mg PO BID [facility] Last Admin: 12/24/18 17:24 Dose: 12.5 mg Clonidine HCl (Catapres Tts1 0.1 Mg/24 Hr) 1 patch TD QWK [facility] Dextrose (Dextrose 50% Inj) 0 ml IV STAT PRN; Protocol PRN Reason: Hypoglycemia Protocol Glimepiride (Amaryl) 2 mg PO DAILY [facility] Heparin Sodium (Porcine) (Heparin) 5,000 units SC Q12 [facility]; Protocol Last Admin: 12/24/18 22:30 Dose: 5,000 units Dextrose (Dextrose 5% In Water 1000 Ml) 1,000 mls @ 0 mls/hr IV .Q0M PRN; Protocol PRN Reason: Hypoglycemia Protocol Meropenem 250 mg/ Sodium (Chloride) 100 mls @ 100 mls/hr IVPB Q12 [facility]; Protocol Stop: 12/31/18 22:01 Last Admin: 12/24/18 21:32 Dose: 100 mls/hr Insulin Human Regular (Humulin R Low) 0 units SC ACHS [facility]; Protocol Last Admin: 12/24/18 22:00 Dose: Not Given Sevelamer HCl (Renagel) 800 mg PO WM [facility] Last Admin: 12/24/18 16:38 Dose: 800 mg Torsemide (Demadex) 10 mg PO DAILY [facility] Last Admin: 12/24/18 15:20 Dose: 10 mg - Labs Labs: 12/24/18 10:30 12/24/18 08:50 PT 13.4 SECONDS (9.4-12.5) H 12/23/18 10:56 INR 1.19 12/23/18 10:56 APTT 35.0 Seconds (26.9-38.3) 12/23/18 10:56 - Constitutional Appears: No Acute Distress, Chronically Ill - Head Exam Head Exam: ATRAUMATIC, NORMAL INSPECTION, NORMOCEPHALIC - Eye Exam Eye Exam: Normal appearance Pupil Exam: NORMAL ACCOMODATION - ENT Exam ENT Exam: Mucous Membranes Moist - Neck Exam Neck Exam: Normal Inspection - Respiratory Exam Respiratory Exam: Clear to Ausculation Bilateral, NORMAL BREATHING PATTERN. absent: Rales, Rhonchi, Wheezes, Respiratory Distress, Stridor - Cardiovascular Exam Cardiovascular Exam: REGULAR RHYTHM, RRR, +S1, +S2. absent: Murmur - GI/Abdominal Exam GI & Abdominal Exam: Soft, Normal Bowel Sounds. absent: Distended, Firm, Gu arding, Rigid, Tenderness, Rebound Additional comments: + obese abdomen - Extremities Exam Extremities Exam: Normal Inspection. absent: Pedal Edema - Back Exam Back Exam: NORMAL INSPECTION - Neurological Exam Neurological Exam: Alert, Awake, Oriented x3 - Psychiatric Exam Psychiatric exam: Normal Affect, Normal Mood - Skin Skin Exam: Dry, Intact, Warm Assessment and Plan (1) CKD stage 4 due to type 2 diabetes mellitus Assessment & Plan: Record obtained by Dr. Santiago from outpatient revealed patient has biopsy proven diabetic nephropathy GFR of 16, S/p vein mapping Will consult surgery for AVF creation Continue with renagel 800 mg WM, Continue with torsemide 10 mg daily Status: Chronic (2) Acute kidney injury superimposed on chronic kidney disease Status: Chronic (3) Urinary tract infection Assessment & Plan: On merrem for ESBL UTI Status: Acute (4) Encephalopathy Status: Resolved (5) Hypertension Assessment & Plan: Continue with norvasc 10 mg , coreg 12.5 mg bid, clonidine 1 patch TD QWK, Status: Chronic (6) Diabetes Status: Chronic (7) Anemia Assessment & Plan: S/P 1 unit of prbc transfused Patient getting iron loading Heme following Gi is consulted to evaluate for + FOBT. Status: Acute (8) Chronic kidney disease-mineral and bone disorder Status: Chronic <Darron Santiago - Last Filed: 12/26/18 08:20> Objective - Vital Signs/Intake and Output Vital Signs (last 24 hours): Temp Pulse Resp BP Pulse Ox 98.0 F 64 20 176/71 H 97 12/25/18 23:29 12/26/18 02:00 12/25/18 23:29 12/26/18 07:22 12/25/18 23:29 Intake and Output: 12/26/18 12/26/18 06:59 18:59 Intake Total 0 Balance 0 - Medications Medications: Current Medications Amlodipine Besylate (Norvasc) 10 mg PO DAILY [facility] Last Admin: 12/26/18 07:22 Dose: 10 mg Atorvastatin Calcium (Lipitor) 40 mg PO DAILY [facility] Last Admin: 12/25/18 10:47 Dose: 40 mg Carvedilol (Coreg) 12.5 mg PO BID [facility] Last Admin: 12/25/18 17:38 Dose: 12.5 mg Clonidine HCl (Catapres Tts1 0.1 Mg/24 Hr) 1 patch TD QWK [facility] Last Admin: 12/25/18 10:47 Dose: 1 patch Clonidine HCl (Catapres) 0.1 mg PO BID [facility] Stop: 12/26/18 18:01 Last Admin: 12/25/18 18:45 Dose: 0.1 mg Dextrose (Dextrose 50% Inj) 0 ml IV STAT PRN; Protocol PRN Reason: Hypoglycemia Protocol Glimepiride (Amaryl) 2 mg PO DAILY [facility] Heparin Sodium (Porcine) (Heparin) 5,000 units SC Q12 [facility]; Protocol Last Admin: 12/25/18 21:58 Dose: 5,000 units Dextrose (Dextrose 5% In Water 1000 Ml) 1,000 mls @ 0 mls/hr IV .Q0M PRN; Protocol PRN Reason: Hypoglycemia Protocol Meropenem 250 mg/ Sodium (Chloride) 100 mls @ 100 mls/hr IVPB Q12 [facility]; Protocol Stop: 12/31/18 22:01 Last Admin: 12/25/18 21:54 Dose: 100 mls/hr Insulin Human Regular (Humulin R Low) 0 units SC ACHS [facility]; Protocol Last Admin: 12/25/18 22:55 Dose: Not Given Sevelamer HCl (Renagel) 800 mg PO WM [facility] Last Admin: 12/25/18 17:38 Dose: 800 mg Torsemide (Demadex) 10 mg PO DAILY [facility] Last Admin: 12/25/18 10:48 Dose: 10 mg - Labs Labs: 12/26/18 07:35 12/26/18 07:35 PT 13.4 SECONDS (9.4-12.5) H 12/23/18 10:56 INR 1.19 12/23/18 10:56 APTT 35.0 Seconds (26.9-38.3) 12/23/18 10:56 Attending/Attestation - Attestation I have personally seen and examined this patient.: Yes I have fully participated in the care of the patient.: Yes I have reviewed all pertinent clinical information, including history, physical exam and plan: Yes Notes (Text): Patient seen and examined; I agree with the resident's note as above with the following additions/edits: Patient with htn, DM, late CKD IV secondary to diabetic kidney disease, admitted with UTI; Renal function currently stable; stable electrolyte status; still with significant lower ext edema but without dyspnea; no urgent indication for initiating HD at this time; Again discussed at length with patient regarding her overall renal prognosis and impending need for HD in the coming months; our goal was to keep patient informed, however, she preferred that we speak with her daughter who was not present at the time; Anemia of CKD with component of iron deficiency; hgb responding appropriately to 1 u prbc transfusion; s/p dose of aranesp, will give IV iron as well; Hypertensive CKD with BP still uncontrolled; clonidine patch ordered yesterday to be restarted but not placed till today; giving PO clonidine 0.1 mg bid x 3 doses until patch takes effect; continue with rest of meds including torsemide 10 mg daily (still with volume excess on exam); CKD mineral bone disorder; awaiting PTH result; continue with sevelamer; UTI w/ culture growing E coli ESBL; discussed with primary team; will not need traditional PICC line (which is relatively in impending HD patient) and will instead complete 1 week antibiotic course via peripheral IV;
[2018-12-25 07:09] LABS: BASO # 0.02 K/mm3 (0.0-2.0); BASO % 0.3 % (0.0-3.0); EOS # 0.3 (0.0-0.7); EOS % 3.8 % (1.5-5.0); HEMOGLOBIN 8.1 g/dL (12.0-16.0); LYMPH # 1.3 (1.2-3.4); LYMPH % 15.9 % (22.0-35.0); MEAN CELL VOLUME 92.9 fl (80.0-105.0); MEAN CORPUSCULAR HEMOGLOBIN 30.5 pg (25.0-35.0); MEAN CORPUSCULAR HGB CONC 32.8 g/dl (31.0-37.0); MEAN PLATELET VOLUME 10.4 fl (7.0-11.0); MONO # 0.7 (0.1-0.6); MONO % 9.3 % (1.0-6.0); RBC 2.66 10^6/uL (3.5-6.1); RED CELL DISTRIBUTION WIDTH 15.6 % (11.5-14.5); WHITE BLOOD COUNT 7.9 10^3/uL (4.5-11.0)
[2018-12-25 07:33] LABS: ALB/GLOB RATIO 0.9 (1.1-1.8); CALCIUM 8.3 mg/dL (8.4-10.5)
--- NOTE | 2018-12-25 08:10 | CP.PCM.PN ---
<José Miguel Garcia - Last Filed: 12/26/18 07:11> Subjective - Date & Time of Evaluation Date of Evaluation: 12/25/18 Time of Evaluation: 08:05 - Subjective Subjective: Neurology Progress Note: Patient seen and assessed at bedside. No acute events overnight. Patient reports that her lower extremity weakness has improved since admission and denies any new complaints at this time. Further 12 point ROS unremarkable at this time. Objective - Vital Signs/Intake and Output Vital Signs (last 24 hours): Temp Pulse Resp BP Pulse Ox 98.6 F 89 20 133/54 L 98 12/25/18 06:00 12/25/18 06:00 12/25/18 06:00 12/25/18 06:00 12/25/18 06:00 Intake and Output: 12/25/18 12/25/18 06:59 18:59 Intake Total 2000 Output Total 400 Balance 1600 - Medications Medications: Current Medications Amlodipine Besylate (Norvasc) 10 mg PO DAILY [facility] Last Admin: 12/24/18 09:18 Dose: 10 mg Atorvastatin Calcium (Lipitor) 40 mg PO DAILY [facility] Last Admin: 12/24/18 09:17 Dose: 40 mg Carvedilol (Coreg) 12.5 mg PO BID [facility] Last Admin: 12/24/18 17:24 Dose: 12.5 mg Clonidine HCl (Catapres Tts1 0.1 Mg/24 Hr) 1 patch TD QWK [facility] Dextrose (Dextrose 50% Inj) 0 ml IV STAT PRN; Protocol PRN Reason: Hypoglycemia Protocol Glimepiride (Amaryl) 2 mg PO DAILY [facility] Heparin Sodium (Porcine) (Heparin) 5,000 units SC Q12 [facility]; Protocol Last Admin: 12/24/18 22:30 Dose: 5,000 units Dextrose (Dextrose 5% In Water 1000 Ml) 1,000 mls @ 0 mls/hr IV .Q0M PRN; Protocol PRN Reason: Hypoglycemia Protocol Meropenem 250 mg/ Sodium (Chloride) 100 mls @ 100 mls/hr IVPB Q12 [facility]; Protocol Stop: 12/31/18 22:01 Last Admin: 12/24/18 21:32 Dose: 100 mls/hr Insulin Human Regular (Humulin R Low) 0 units SC ACHS [facility]; Protocol Last Admin: 12/24/18 22:00 Dose: Not Given Sevelamer HCl (Renagel) 800 mg PO WM [facility] Last Admin: 12/24/18 16:38 Dose: 800 mg Torsemide (Demadex) 10 mg PO DAILY [facility] Last Admin: 12/24/18 15:20 Dose: 10 mg - Labs Labs: 12/25/18 06:50 12/25/18 06:50 PT 13.4 SECONDS (9.4-12.5) H 12/23/18 10:56 INR 1.19 12/23/18 10:56 APTT 35.0 Seconds (26.9-38.3) 12/23/18 10:56 - Additional Findings Additional findings: - Constitutional Constitutional Exam: No Acute Distress, Non-Toxic - Head Exam Head Exam: ATRAUMATIC, NORMOCEPHALIC - Eye Exam Eye Exam: EOMI, Normal appearance, PERRL Pupil Exam: NORMAL ACCOMODATION, PERRL - Respiratory Exam Respiratory Exam: Clear to Auscultation Bilateral, NORMAL BREATHING PATTERN. absent: Respiratory Distress - Cardiovascular Exam Cardiovascular Exam: REGULAR RHYTHM - Extremities Exam Extremities exam: Positive for: pedal edema - Expanded Neurological Exam Expanded Patient oriented to: person, place, time Cranial nerves: EOM's Intact: Normal, Facial Palsey w/Forehead Movement: Normal, Facial Palsey w/o Forehead Movement: Normal, Facial Sensation: Normal, Gag Reflex: Normal, Nystagmus: Normal, Tongue Deviation: Normal Neuro motor strength exam: Left Upper Extremity: 5, Right Upper Extremity: 5, Left Lower Extremity: 5, Right Lower Extremity: 5 Coma Scale Eye Opening: SPONTANEOUS Coma Scale Motor Response: OBEYS COMMANDS Coma Scale Verbal: Oriented Coma Scale Total: 15 - Skin Skin Exam: Dry, Intact, Normal Color, Warm Assessment and Plan - Assessment and Plan (Free Text) Assessment: 68 year old female with a past medical history significant for HTN, HLD, CKD, unspecified anemia and DM2 who presented with AMS. A code stroke was activated on arrival to the ED and her initial NIHSS stroke scale of 0. Plan: -MRI Brain showed no acute or chronic intracranial pathology -CT Head negative for any acute or chronic intracranial pathology -2D Echocardiogram showed normal LV function, normal LVEF and no thrombus -Continue Lipitor -Continue PT -Continue management of HTN and UTI as per primary team -Continue treatment of UTI as per ID -Continue treatment of anemia as per hematology team -Further recommendations as per Dr. Trujillo Disposition: No further neurological imaging/interventions indicated at this time. Neurology will be signing off at this time. Please feel free to reconsult as indicated. Patient seen and case discussed with attending, Dr. Trujillo. José Miguel Garcia PGY2 <Juan Jose Trujillo - Last Filed: 12/27/18 22:57> Objective - Vital Signs/Intake and Output Vital Signs (last 24 hours): Temp Pulse Resp BP Pulse Ox 98.2 F 72 19 152/66 H 99 12/27/18 16:56 12/27/18 17:46 12/27/18 16:56 12/27/18 17:46 12/27/18 16:56 Intake and Output: 12/27/18 12/28/18 18:59 06:59 Intake Total 200 Output Total 100 Balance 100 - Medications Medications: Current Medications Albuterol/Ipratropium (Duoneb 3 Mg/0.5 Mg (3 Ml) Ud) 3 ml IH Q6H [facility] Last Admin: 12/27/18 19:20 Dose: 3 ml Albuterol/Ipratropium (Duoneb 3 Mg/0.5 Mg (3 Ml) Ud) 3 ml IH Q2H PRN PRN Reason: Shortness of Breath Amlodipine Besylate (Norvasc) 10 mg PO DAILY [facility] Last Admin: 12/27/18 11:58 Dose: 10 mg Atorvastatin Calcium (Lipitor) 40 mg PO DAILY [facility] Last Admin: 12/27/18 11:58 Dose: 40 mg Carvedilol (Coreg) 12.5 mg PO BID [facility] Last Admin: 12/27/18 17:46 Dose: 12.5 mg Clonidine HCl (Catapres Tts1 0.1 Mg/24 Hr) 1 patch TD QWK [facility] Last Admin: 12/25/18 10:47 Dose: 1 patch Dextrose (Dextrose 50% Inj) 0 ml IV STAT PRN; Protocol PRN Reason: Hypoglycemia Protocol Ergocalciferol (Drisdol 50,000 Intl Units Cap) 1 cap PO Q7D [facility] Last Admin: 12/27/18 12:02 Dose: 1 cap Furosemide (Lasix) 40 mg IVP BID [facility] Last Admin: 12/27/18 17:45 Dose: 40 mg Glimepiride (Amaryl) 1 mg PO DAILY [facility] Last Admin: 12/27/18 11:59 Dose: 1 mg Heparin Sodium (Porcine) (Heparin) 5,000 units SC Q12 [facility]; Protocol Last Admin: 12/27/18 09:49 Dose: 5,000 units Hydralazine HCl (Apresoline) 10 mg IVP Q6 PRN PRN Reason: Systolic Blood Pressure Last Admin: 12/27/18 06:48 Dose: 10 mg Hydralazine HCl (Apresoline) 50 mg PO QID [facility] Last Admin: 12/27/18 17:46 Dose: 50 mg Dextrose (Dextrose 5% In Water 1000 Ml) 1,000 mls @ 0 mls/hr IV .Q0M PRN; Protocol PRN Reason: Hypoglycemia Protocol Meropenem 250 mg/ Sodium (Chloride) 100 mls @ 100 mls/hr IVPB Q12 [facility]; Protocol Stop: 12/31/18 22:01 Last Admin: 12/27/18 12:47 Dose: 100 mls/hr Iron Sucrose 100 mg/ Sodium (Chloride) 105 mls @ 210 mls/hr IVPB DAILY [facility] Stop: 12/30/18 10:29 Last Admin: 12/27/18 13:49 Dose: 210 mls/hr Insulin Human Regular (Humulin R Low) 0 units SC ACHS [facility]; Protocol Last Admin: 12/27/18 16:55 Dose: Not Given Sevelamer HCl (Renagel) 800 mg PO WM [facility] Last Admin: 12/27/18 17:46 Dose: 800 mg Torsemide (Demadex) 10 mg PO DAILY [facility] Last Admin: 12/27/18 11:59 Dose: 10 mg - Labs Labs: 12/27/18 10:30 12/27/18 10:30 PT 13.4 SECONDS (9.4-12.5) H 12/23/18 10:56 INR 1.19 12/23/18 10:56 APTT 35.0 Seconds (26.9-38.3) 12/23/18 10:56 Assessment and Plan - Assessment and Plan (Free Text) Plan: 68 yr old woman who was initially admitted for a possible stroke, but most likey has encephalopathy. MRi has been normal. I examined the patient independently and formulated the assessment and plan. I agree with the above note. Thank you Dr. Trujillo Neurology
[2018-12-25] MEDS: Insulin Reg-LOW-Coverage SC SCH ×4 (09:22→22:55)
--- NOTE | 2018-12-25 10:15 | CON ---
DATE: 12/25/2018 CONSULT REQUESTED BY: Geovanni Evangelista MD REASON FOR CONSULTATION: Severe anemia. HISTORY OF PRESENT ILLNESS: Ms. Stern is a 68-year-old female admitted to the hospital with altered mental status. She has history of hypertension, hyperlipidemia, chronic kidney disease, chronic anemia. She was brought to the ED by the family when she was unable to wake up in the morning. Stroke code was called. She was found to have uncontrolled hypertension in the ED. Hemoglobin was 7 g/dL, but it declined to 6.7 g/dL. Creatinine was elevated at 3. No obvious bleeding reported by the family. She was admitted previously also with severe anemia and was advised weekly erythropoietin support to maintain normal hemoglobin. She is being prepared for hemodialysis, Dr. Santiago evaluated her. She also has UTI with microorganisms and sepsis. PAST MEDICAL HISTORY: Hypertensin, hyperlipidemia and diabetes. PAST SURGICAL HISTORY: Thyroid surgery and back surgery. FAMILY HISTORY: Noncontributory. ALLERGIES: NO KNOWN DRUG ALLERGIES. HOME MEDICATIONS: Fenofibrate, gabapentin, omeprazole, Lipitor, calcium, Coreg, clonidine, ferrous sulfate, Amaryl, Levemir, hydrochlorothiazide, Renagel, tramadol and amlodipine 10 mg daily. REVIEW OF SYSTEMS: As per HPI. Rest of 12-point review of system reviewed negative. PHYSICAL EXAMINATION: GENERAL: Comfortable in bed. VITAL SIGNS: Blood pressure 135/57, respiratory 17 per minute, heart rate is 70 per minute and pulse ox is 100% on room air. HEENT: Pallor positive. NECK: No lymphadenopathy. CHEST: Air entry present and equal bilaterally. No added sounds. CARDIOVASCULAR: S1 and S2 are normal. No murmur. No gallop. ABDOMEN: Soft and nontender. No hepatosplenomegaly. EXTREMITIES: No edema. NEUROLOGIC: Intact cranial nerves. Alert and oriented x2. LABORATORY DATA: White count 7.9, hemoglobin 8.1, hematocrit 24.7 and platelets 207. Hemoglobin previously 6.7. Sodium 139, potassium 4.7, creatinine 3, alkaline phosphatase 192. LDL 824. Stool occult blood is positive. Urine culture positive for E. coli and beta-hemolytic strep. ASSESSMENT: 1. Chronic anemia. 2. Chronic kidney disease. 3. Possibility of gastrointestinal bleed. 4. Hypertension. 5. Urinary tract infection. PLAN: She received 2 units of blood transfusion, hemoglobin is 8.1, today we will give one dose of Aranesp 100 mg of subcutaneous. She will need weekly Aranesp. Iron studies will not be accurate because of the recent blood transfusion. We will check in few days iron studies, if iron is low she will benefit from IV iron. She is being prepared for hemodialysis by Dr. Santiago. Stool occult blood has been positive. I would recommend GI consult. 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 She need evaluation with stress test technician. Currently being treated by ID consultation Dr. Quiros, reviewed. We will continue to monitor hemoglobin and hematocrit. Thank you Dr. Evangelista for allowing us to participate in Ms. Stern's care. Corinne Lovelace MD
[2018-12-25 11:13] LABS: IRON 285 ug/dL (45-180)
[2018-12-25 11:22] LABS: % IRON SATURATION 133 % (20-55); TOTAL IRON BINDING CAPACITY 214 ug/dL (265-497)
--- NOTE | 2018-12-25 13:10 | CP.PCM.PN ---
Subjective - Date & Time of Evaluation Date of Evaluation: 12/25/18 Time of Evaluation: 10:35 - Subjective Subjective: Comfortable in bed, no fevers. Objective - Vital Signs/Intake and Output Vital Signs (last 24 hours): Temp Pulse Resp BP Pulse Ox 98 F 70 20 179/89 H 100 12/24/18 12:00 12/24/18 12:14 12/24/18 12:00 12/24/18 12:14 12/24/18 06:00 - Medications Medications: Current Medications Amlodipine Besylate (Norvasc) 10 mg PO DAILY [facility] Last Admin: 12/24/18 09:18 Dose: 10 mg Atorvastatin Calcium (Lipitor) 40 mg PO DAILY [facility] Last Admin: 12/24/18 09:17 Dose: 40 mg Carvedilol (Coreg) 12.5 mg PO BID [facility] Last Admin: 12/24/18 09:17 Dose: 12.5 mg Clonidine HCl (Catapres Tts1 0.1 Mg/24 Hr) 1 patch TD QWK [facility] Dextrose (Dextrose 50% Inj) 0 ml IV STAT PRN; Protocol PRN Reason: Hypoglycemia Protocol Glimepiride (Amaryl) 2 mg PO DAILY [facility] Dextrose (Dextrose 5% In Water 1000 Ml) 1,000 mls @ 0 mls/hr IV .Q0M PRN; Protocol PRN Reason: Hypoglycemia Protocol Vancomycin HCl 1.5 gm/ Sodium (Chloride) 500 mls @ 167 mls/hr IVPB ONCE ONE; Protocol Stop: 12/24/18 16:40 Meropenem/Sodium Chloride (Merrem Iv 500 Mg/Ns 50 Ml) 500 mg in 50 mls @ 100 mls/hr IVPB Q24H [facility]; Protocol Insulin Human Regular (Humulin R Low) 0 units SC ACHS [facility]; Protocol Last Admin: 12/24/18 12:55 Dose: Not Given Sevelamer HCl (Renagel) 800 mg PO WM [facility] Last Admin: 12/24/18 12:15 Dose: 800 mg - Labs Labs: 12/24/18 10:30 12/24/18 08:50 PT 13.4 SECONDS (9.4-12.5) H 12/23/18 10:56 INR 1.19 12/23/18 10:56 APTT 35.0 Seconds (26.9-38.3) 12/23/18 10:56 - Constitutional Appears: Chronically Ill - Head Exam Head Exam: NORMAL INSPECTION - Respiratory Exam Respiratory Exam: Decreased Breath Sounds - Cardiovascular Exam Cardiovascular Exam: +S1, +S2 - GI/Abdominal Exam GI & Abdominal Exam: Soft. absent: Tenderness Assessment and Plan - Assessment and Plan (Free Text) Plan: Asssessment systemic inflammatory response syndrome, consider sepsis due to UTI with Group B Strep and ESBL E. coli history of right pyelonephritis with ESBL E. 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
--- NOTE | 2018-12-25 13:12 | CP.PCM.CON ---
History of Present Illness - History of Present Illness History of Present Illness: Resident Consult Note for Surgery: Dr. Grossman Patient is a 68 year old female with past medical history of HTN, T2DM, CKD, anemia, HLD who was admitted for weakness secondary to toxic metabolic encephalopathy due to UTI. Surgery was consulted for AV fistula placement. Patient denies any history of AV fistulas and states she has never had dialysis before. Patient admits to weakness which has improved s/p 1 unit pRBCs. Denies fevers, chills, chest pain, shortness of breath, nausea, vomiting. PMH: HTN, T2DM, CKD, anemia, HLD PSH: unspecified stomach tumor removal, appendectomy, cholecystectomy, thyroid surgery, back surgery SHx: former smoker FHx: T2DM (father) Allergies: NKDA Home meds: Lipitor 40mg HS, Levemir 12u HS, Clonidine 0.1 patch QWK, Omerazole 20mg qd, Glimepiride 2mg QD, Amlodipine 10mg QD, Carvedilol 12.5mg bid, Renvela 800mg tid, Losartan/HCTZ 50/12.5mg QD PMD: Dr. Erasto Huang (allen) Review of Systems - Review of Systems All systems: reviewed and no additional remarkable complaints except (as stated in HPI) Past Patient History - Infectious Disease Hx of Infectious Diseases: None - Tetanus Immunizations Tetanus Immunization: Unknown - Past Social History Smoking Status: Former Smoker Alcohol: None Drugs: Denies Home Situation {Lives}: With Family - CARDIAC Hx Hypertension: Yes - PULMONARY Hx Respiratory Disorders: No - NEUROLOGICAL Hx Neurological Disorder: No - HEENT Hx HEENT Problems: No - RENAL Hx Chronic Kidney Disease: Yes Hx Dialysis: No - ENDOCRINE/METABOLIC Hx Diabetes Mellitus Type 2: Yes - HEMATOLOGICAL/ONCOLOGICAL Hx Anemia: Yes - INTEGUMENTARY Hx Dermatological Problems: No - MUSCULOSKELETAL/RHEUMATOLOGICAL Hx Falls: No - GASTROINTESTINAL Hx Fatty Liver Disease: Yes - GENITOURINARY/GYNECOLOGICAL Hx Genitourinary Disorders: No - PSYCHIATRIC Hx Substance Use: No - SURGICAL HISTORY Other/Comment: unknown surgery - ANESTHESIA Hx Anesthesia: Yes Hx Anesthesia Reactions: No Hx Malignant Hyperthermia: No Meds Allergies/Adverse Reactions: Allergies Allergy/AdvReac Type Severity Reaction Status Date / Time No Known Allergies Allergy Verified 12/23/18 11:46 - Medications Medications: Current Medications Amlodipine Besylate (Norvasc) 10 mg PO DAILY [facility] Last Admin: 12/25/18 10:47 Dose: 10 mg Atorvastatin Calcium (Lipitor) 40 mg PO DAILY [facility] Last Admin: 12/25/18 10:47 Dose: 40 mg Carvedilol (Coreg) 12.5 mg PO BID [facility] Last Admin: 12/25/18 10:47 Dose: 12.5 mg Clonidine HCl (Catapres Tts1 0.1 Mg/24 Hr) 1 patch TD QWK [facility] Last Admin: 12/25/18 10:47 Dose: 1 patch Dextrose (Dextrose 50% Inj) 0 ml IV STAT PRN; Protocol PRN Reason: Hypoglycemia Protocol Glimepiride (Amaryl) 2 mg PO DAILY [facility] Heparin Sodium (Porcine) (Heparin) 5,000 units SC Q12 [facility]; Protocol Last Admin: 12/25/18 10:47 Dose: 5,000 units Dextrose (Dextrose 5% In Water 1000 Ml) 1,000 mls @ 0 mls/hr IV .Q0M PRN; Protocol PRN Reason: Hypoglycemia Protocol Meropenem 250 mg/ Sodium (Chloride) 100 mls @ 100 mls/hr IVPB Q12 [facility]; Protocol Stop: 12/31/18 22:01 Last Admin: 12/25/18 10:50 Dose: 100 mls/hr Insulin Human Regular (Humulin R Low) 0 units SC ACHS [facility]; Protocol Last Admin: 12/25/18 12:56 Dose: 1 unit Sevelamer HCl (Renagel) 800 mg PO WM [facility] Last Admin: 12/25/18 12:56 Dose: 800 mg Torsemide (Demadex) 10 mg PO DAILY [facility] Last Admin: 12/25/18 10:48 Dose: 10 mg Physical Exam - Additional Findings Additional findings: - Constitutional Appears: No Acute Distress - Head Exam Head Exam: ATRAUMATIC, NORMOCEPHALIC - Eye Exam Eye Exam: EOMI, PERRL - ENT Exam ENT Exam: Mucous Membranes Moist - Neck Exam Neck exam: Positive for: Full Rom - Respiratory Exam Respiratory Exam: NORMAL BREATHING PATTERN. absent: Respiratory Distress - Cardiovascular Exam Cardiovascular Exam: RRR, +S1, +S2. absent: Systolic Murmur - GI/Abdominal Exam GI & Abdominal Exam: Normal Bowel Sounds, Soft. absent: Distended, Tenderness Additional comments: surgical scars in RUQ, RLQ - Extremities Exam Extremities exam: Positive for: pedal edema. absent: tenderness, pedal pulses present Additional comments: distal pulses intact in upper and lower extremites bilaterally - Neurological Exam Neurological exam: Alert, CN II-XII Intact, Oriented x3 - Psychiatric Exam Psychiatric exam: Normal Mood - Skin Skin Exam: Dry, Normal Color, Warm Results - Vital Signs Recent Vital Signs: Last Vital Signs Temp 97.8 F 12/25/18 12:00 Pulse 64 12/25/18 12:00 Resp 20 12/25/18 12:00 BP 162/79 H 12/25/18 12:00 Pulse Ox 98 12/25/18 06:00 - Labs Result Diagrams: 12/25/18 06:50 12/25/18 06:50 Labs: Laboratory Results - last 24 hr 12/23/18 12/23/18 12/24/18 16:12 18:20 08:50 WBC RBC Hgb Hct MCV MCH MCHC RDW Plt Count MPV Neut % (Auto) Lymph % (Auto) [place] % (Auto) Eos % (Auto) Baso % (Auto) Lymph # (Auto) [place] # (Auto) Eos # (Auto) Baso # (Auto) Absolute Neuts (auto) Sodium Potassium Chloride Carbon Dioxide Anion Gap BUN Creatinine Est GFR ( Amer) Est GFR (Non-Af Amer) POC Glucose (mg/dL) Random Glucose Calcium Phosphorus Magnesium Iron TIBC % Saturation Ferritin 274.0 Total Bilirubin AST ALT Alkaline Phosphatase Total Protein Total Protein (PEP) Albumin Globulin Albumin/Globulin Ratio 25-OH Vitamin D Total < 12.8 L Stool Occult Blood Blood Type O POSITIVE Antibody Screen Negative Crossmatch See Detail BBK History Checked No verified bt 12/24/18 12/24/18 12/24/18 08:50 16:18 21:30 WBC RBC Hgb Hct MCV MCH MCHC RDW Plt Count MPV Neut % (Auto) Lymph % (Auto) [place] % (Auto) Eos % (Auto) Baso % (Auto) Lymph # (Auto) [place] # (Auto) Eos # (Auto) Baso # (Auto) Absolute Neuts (auto) Sodium Potassium Chloride Carbon Dioxide Anion Gap BUN Creatinine Est GFR ( Amer) Est GFR (Non-Af Amer) POC Glucose (mg/dL) 157 H 167 H Random Glucose Calcium Phosphorus Magnesium Iron TIBC % Saturation Ferritin Total Bilirubin AST ALT Alkaline Phosphatase Total Protein Total Protein (PEP) 5.2 L Albumin Globulin Albumin/Globulin Ratio 25-OH Vitamin D Total Stool Occult Blood Blood Type Antibody Screen Crossmatch BBK History Checked 12/25/18 12/25/18 12/25/18 06:50 06:50 07:17 WBC 7.9 RBC 2.66 L Hgb 8.1 L Hct 24.7 L MCV 92.9 D MCH 30.5 MCHC 32.8 RDW 15.6 H Plt Count 207 MPV 10.4 Neut % (Auto) 70.7 H Lymph % (Auto) 15.9 L [place] % (Auto) 9.3 H Eos % (Auto) 3.8 Baso % (Auto) 0.3 Lymph # (Auto) 1.3 [place] # (Auto) 0.7 H Eos # (Auto) 0.3 Baso # (Auto) 0.02 Absolute Neuts (auto) 5.55 Sodium 138 Potassium 4.9 Chloride 110 H Carbon Dioxide 23 Anion Gap 11 BUN 51 H Creatinine 2.9 H Est GFR ( Amer) 20 Est GFR (Non-Af Amer) 16 POC Glucose (mg/dL) 162 H Random Glucose 175 H Calcium 8.3 L Phosphorus 5.5 H Magnesium 1.8 Iron TIBC % Saturation Ferritin Total Bilirubin 0.3 AST 37 H ALT 23 Alkaline Phosphatase 259 H D Total Protein 6.1 Total Protein (PEP) Albumin 3.0 Globulin 3.2 Albumin/Globulin Ratio 0.9 L 25-OH Vitamin D Total Stool Occult Blood Blood Type Antibody Screen Crossmatch BBK History Checked 12/25/18 12/25/18 08:00 10:30 WBC RBC Hgb Hct MCV MCH MCHC RDW Plt Count MPV Neut % (Auto) Lymph % (Auto) [place] % (Auto) Eos % (Auto) Baso % (Auto) Lymph # (Auto) [place] # (Auto) Eos # (Auto) Baso # (Auto) Absolute Neuts (auto) Sodium Potassium Chloride Carbon Dioxide Anion Gap BUN Creatinine Est GFR ( Amer) Est GFR (Non-Af Amer) POC Glucose (mg/dL) Random Glucose Calcium Phosphorus Magnesium Iron 285 H TIBC 214 L % Saturation 133 H Ferritin Total Bilirubin AST ALT Alkaline Phosphatase Total Protein Total Protein (PEP) Albumin Globulin Albumin/Globulin Ratio 25-OH Vitamin D Total Stool Occult Blood Positive H Blood Type Antibody Screen Crossmatch BBK History Checked Assessment & Plan - Assessment and Plan (Free Text) Assessment: Patient is a 68 year old female with past medical history of HTN, T2DM, CKD, anemia, HLD who is admitted for management of symptomatic anemia, UTI, acute on chronic renal failure. Plan: - plan for outpatient followup for AV fistula placement - plan for placement of fistula in LUE; limit IVs and blood draws to RUE - followup HD access duplex ultrasound - further management per primary - further recommendations per Dr. Chauncey Martinez PGY-1 - Date & Time Date: 12/25/18 Time: 13:00
[2018-12-25 14:00] LABS: ALBUMIN (PEP) 2.3 g/dL (3.8-4.8); ALPHA-1-GLOBULIN (PEP) 0.4 g/dL (0.2-0.3)
--- NOTE | 2018-12-25 14:44 | CP.PCM.CON ---
<Barron Gayle - Last Filed: 12/25/18 14:38> History of Present Illness - History of Present Illness History of Present Illness: GI Consult Note for Dr. Narayan Reason for Consultation: Anemia, +FOBT Patient is a 68 yo F with PMH of DM2, CKD stage IV (diabetic), HTN, anemia (iron deficiency +/- chronic inflammation), fatty liver, UTI and obesity presents to [facility] for altered mental status due to toxic metabolic encephalopathy 2/2 UTI. Patient was placed on IV abx and mentation has since improved. GI was consulted due to anemia and positive stool occult for blood. During hospital course, patient was found to have Hgb of 6.7 and was transfused with appropriate response. Patient admits to some fatigue. However, denies any signs of overt bleeding including melena, hematochezia, and hematemesis. Patient states she had a colonoscopy several years ago, but does not know the results. She has never had an upper endoscopy. Patient denies CP, SOB, n/v/d, abdominal pain, fever, chills, CARMONA, or dizziness. PMH: as above PSH: unspecified stomach tumor removal, appendectomy, cholecystectomy, thyroid surgery, back surgery Meds: reviewed on JAN; Pharmacy is [facility] and meds were prescribed by her PMD and no market development specialist Allergies: NKDA SHx: Previous history of light smoking FHx: Father: DM2 [place] Translation #[id number] Review of Systems - Review of Systems All systems: reviewed and no additional remarkable complaints except (12 point ROS reviewed and is negative other than what is stated in HPI.) Past Patient History - Infectious Disease Hx of Infectious Diseases: None - Tetanus Immunizations Tetanus Immunization: Unknown - Past Social History Smoking Status: Former Smoker Alcohol: None Drugs: Denies Home Situation {Lives}: With Family - CARDIAC Hx Cardiac Disorders: Yes Hx Hypercholesterolemia: Yes (HLD) Hx Hypertension: Yes - PULMONARY Hx Respiratory Disorders: No - NEUROLOGICAL Hx Neurological Disorder: No - HEENT Hx HEENT Problems: No - RENAL Hx Chronic Kidney Disease: Yes Hx Dialysis: No - ENDOCRINE/METABOLIC Hx Diabetes Mellitus Type 2: Yes - HEMATOLOGICAL/ONCOLOGICAL Hx Anemia: Yes - INTEGUMENTARY Hx Dermatological Problems: No - MUSCULOSKELETAL/RHEUMATOLOGICAL Hx Falls: No - GASTROINTESTINAL Hx Fatty Liver Disease: Yes - GENITOURINARY/GYNECOLOGICAL Hx Genitourinary Disorders: No - PSYCHIATRIC Hx Substance Use: No - SURGICAL HISTORY Other/Comment: unknown surgery - ANESTHESIA Hx Anesthesia: Yes Hx Anesthesia Reactions: No Hx Malignant Hyperthermia: No Meds Allergies/Adverse Reactions: Allergies Allergy/AdvReac Type Severity Reaction Status Date / Time No Known Allergies Allergy Verified 12/23/18 11:46 - Medications Medications: Current Medications Amlodipine Besylate (Norvasc) 10 mg PO DAILY [facility] Last Admin: 12/25/18 10:47 Dose: 10 mg Atorvastatin Calcium (Lipitor) 40 mg PO DAILY [facility] Last Admin: 12/25/18 10:47 Dose: 40 mg Carvedilol (Coreg) 12.5 mg PO BID [facility] Last Admin: 12/25/18 10:47 Dose: 12.5 mg Clonidine HCl (Catapres Tts1 0.1 Mg/24 Hr) 1 patch TD QWK [facility] Last Admin: 12/25/18 10:47 Dose: 1 patch Dextrose (Dextrose 50% Inj) 0 ml IV STAT PRN; Protocol PRN Reason: Hypoglycemia Protocol Glimepiride (Amaryl) 2 mg PO DAILY [facility] Heparin Sodium (Porcine) (Heparin) 5,000 units SC Q12 [facility]; Protocol Last Admin: 12/25/18 10:47 Dose: 5,000 units Dextrose (Dextrose 5% In Water 1000 Ml) 1,000 mls @ 0 mls/hr IV .Q0M PRN; Protocol PRN Reason: Hypoglycemia Protocol Meropenem 250 mg/ Sodium (Chloride) 100 mls @ 100 mls/hr IVPB Q12 [facility]; Protocol Stop: 12/31/18 22:01 Last Admin: 12/25/18 10:50 Dose: 100 mls/hr Insulin Human Regular (Humulin R Low) 0 units SC ACHS [facility]; Protocol Last Admin: 12/25/18 12:56 Dose: 1 unit Sevelamer HCl (Renagel) 800 mg PO WM [facility] Last Admin: 12/25/18 12:56 Dose: 800 mg Torsemide (Demadex) 10 mg PO DAILY [facility] Last Admin: 12/25/18 10:48 Dose: 10 mg Physical Exam - Constitutional Appears: No Acute Distress - Head Exam Head Exam: NORMAL INSPECTION - Eye Exam Eye Exam: Normal appearance - ENT Exam ENT Exam: Mucous Membranes Moist, Normal Exam - Neck Exam Neck exam: Positive for: Normal Inspection - Respiratory Exam Respiratory Exam: Clear to Auscultation Bilateral. absent: Rales, Rhonchi, Wheezes - Cardiovascular Exam Cardiovascular Exam: RRR. absent: Gallop, Rubs - GI/Abdominal Exam GI & Abdominal Exam: Soft. absent: Distended, Guarding, Rebound, Tenderness - Extremities Exam Extremities exam: Positive for: normal inspection - Back Exam Back exam: NORMAL INSPECTION - Neurological Exam Neurological exam: Alert, Oriented x3 - Skin Skin Exam: Normal Color, Warm Results - Vital Signs Recent Vital Signs: Last Vital Signs Temp 97.8 F 12/25/18 12:00 Pulse 64 12/25/18 12:00 Resp 20 12/25/18 12:00 BP 162/79 H 12/25/18 12:00 Pulse Ox 98 12/25/18 06:00 - Labs Result Diagrams: 12/25/18 06:50 12/25/18 06:50 Labs: Laboratory Results - last 24 hr 12/23/18 12/24/18 12/24/18 16:12 08:50 08:50 WBC RBC Hgb Hct MCV MCH MCHC RDW Plt Count MPV Neut % (Auto) Lymph % (Auto) [place] % (Auto) Eos % (Auto) Baso % (Auto) Lymph # (Auto) [place] # (Auto) Eos # (Auto) Baso # (Auto) Absolute Neuts (auto) Sodium Potassium Chloride Carbon Dioxide Anion Gap BUN Creatinine Est GFR ( Amer) Est GFR (Non-Af Amer) POC Glucose (mg/dL) Random Glucose Calcium Phosphorus Magnesium Iron TIBC % Saturation Total Bilirubin AST ALT Alkaline Phosphatase Total Protein Total Protein (PEP) 5.2 L Albumin Albumin (PEP) 2.3 L Globulin Albumin/Globulin Ratio Cxzka-1-Oyjxyrzkm 0.4 H Wqnei-7-Bujlbhleb 0.9 Tixr-6-Adfluikk 0.4 Slrp-3-Rqwuzgzx 0.4 Gamma Globulins 0.8 Abnorm Protein Band 1 TEST NOT PERFORMED Abnorm Protein Band 2 TEST NOT PERFORMED Abnorm Protein Band 3 TEST NOT PERFORMED PTH w/Ion &Tot Calcium 113 H Stool Occult Blood ROBER & SPEP Interp See note Blood Type O POSITIVE Antibody Screen Negative Crossmatch See Detail BBK History Checked No verified bt 12/24/18 12/24/18 12/25/18 16:18 21:30 06:50 WBC 7.9 RBC 2.66 L Hgb 8.1 L Hct 24.7 L MCV 92.9 D MCH 30.5 MCHC 32.8 RDW 15.6 H Plt Count 207 MPV 10.4 Neut % (Auto) 70.7 H Lymph % (Auto) 15.9 L [place] % (Auto) 9.3 H Eos % (Auto) 3.8 Baso % (Auto) 0.3 Lymph # (Auto) 1.3 [place] # (Auto) 0.7 H Eos # (Auto) 0.3 Baso # (Auto) 0.02 Absolute Neuts (auto) 5.55 Sodium Potassium Chloride Carbon Dioxide Anion Gap BUN Creatinine Est GFR ( Amer) Est GFR (Non-Af Amer) POC Glucose (mg/dL) 157 H 167 H Random Glucose Calcium Phosphorus Magnesium Iron TIBC % Saturation Total Bilirubin AST ALT Alkaline Phosphatase Total Protein Total Protein (PEP) Albumin Albumin (PEP) Globulin Albumin/Globulin Ratio Bcesb-9-Ktjcovjhf Ryagl-6-Buscatysn Hsey-1-Idntpiwu Uilw-5-Gaxpwvqm Gamma Globulins Abnorm Protein Band 1 Abnorm Protein Band 2 Abnorm Protein Band 3 PTH w/Ion &Tot Calcium Stool Occult Blood ROBER & SPEP Interp Blood Type Antibody Screen Crossmatch BBK History Checked 12/25/18 12/25/18 12/25/18 06:50 07:17 08:00 WBC RBC Hgb Hct MCV MCH MCHC RDW Plt Count MPV Neut % (Auto) Lymph % (Auto) [place] % (Auto) Eos % (Auto) Baso % (Auto) Lymph # (Auto) [place] # (Auto) Eos # (Auto) Baso # (Auto) Absolute Neuts (auto) Sodium 138 Potassium 4.9 Chloride 110 H Carbon Dioxide 23 Anion Gap 11 BUN 51 H Creatinine 2.9 H Est GFR ( Amer) 20 Est GFR (Non-Af Amer) 16 POC Glucose (mg/dL) 162 H Random Glucose 175 H Calcium 8.3 L Phosphorus 5.5 H Magnesium 1.8 Iron TIBC % Saturation Total Bilirubin 0.3 AST 37 H ALT 23 Alkaline Phosphatase 259 H D Total Protein 6.1 Total Protein (PEP) Albumin 3.0 Albumin (PEP) Globulin 3.2 Albumin/Globulin Ratio 0.9 L Wtkba-2-Lxviwzkge Agalx-0-Jszbysnlw Fuzc-9-Scdjvvxr Qukj-5-Xuchbbqa Gamma Globulins Abnorm Protein Band 1 Abnorm Protein Band 2 Abnorm Protein Band 3 PTH w/Ion &Tot Calcium Stool Occult Blood Positive H ROBER & SPEP Interp Blood Type Antibody Screen Crossmatch BBK History Checked 12/25/18 10:30 WBC RBC Hgb Hct MCV MCH MCHC RDW Plt Count MPV Neut % (Auto) Lymph % (Auto) [place] % (Auto) Eos % (Auto) Baso % (Auto) Lymph # (Auto) [place] # (Auto) Eos # (Auto) Baso # (Auto) Absolute Neuts (auto) Sodium Potassium Chloride Carbon Dioxide Anion Gap BUN Creatinine Est GFR ( Amer) Est GFR (Non-Af Amer) POC Glucose (mg/dL) Random Glucose Calcium Phosphorus Magnesium Iron 285 H TIBC 214 L % Saturation 133 H Total Bilirubin AST ALT Alkaline Phosphatase Total Protein Total Protein (PEP) Albumin Albumin (PEP) Globulin Albumin/Globulin Ratio Uqzrn-2-Ewhccucgh Omszg-9-Cnpjuifot Mdpt-9-Uvyodcbj Dptm-5-Ehuzacop Gamma Globulins Abnorm Protein Band 1 Abnorm Protein Band 2 Abnorm Protein Band 3 PTH w/Ion &Tot Calcium Stool Occult Blood ROBER & SPEP Interp Blood Type Antibody Screen Crossmatch BBK History Checked Assessment & Plan - Assessment and Plan (Free Text) Assessment: 68 yo F with PMH of DM2, CKD stage IV (diabetic), HTN, anemia, fatty liver, UTI and obesity presents to [facility] for AMS 2/2 UTI. GI consulted for anemia and positive stool for occult blood. Abdomen/pelvis CT from prior admission 07/2018 reviewed, negative. 1. Anemia r/o GIB vs chronic disease 2. Toxic Metabolic Encephalopathy 2/2 UTI 3. JOSUE on CKD Plan: - Anemia could be multifactorial in setting of CKD and decreased Epo production vs GIB - Would benefit from EGD/colonoscopy - Iron studies consistent with chronic disease - Weekly Aranesp per nephro/hematology - IV abx per ID - For further recommendations, please see attestation. Patient discussed in detail with Dr. Narayan. Srini Gayle DO PGY2 <Megan Narayan V - Last Filed: 12/25/18 23:53> Meds - Medications Medications: Current Medications Amlodipine Besylate (Norvasc) 10 mg PO DAILY [facility] Last Admin: 12/25/18 10:47 Dose: 10 mg Atorvastatin Calcium (Lipitor) 40 mg PO DAILY [facility] Last Admin: 12/25/18 10:47 Dose: 40 mg Carvedilol (Coreg) 12.5 mg PO BID [facility] Last Admin: 12/25/18 17:38 Dose: 12.5 mg Clonidine HCl (Catapres Tts1 0.1 Mg/24 Hr) 1 patch TD QWK [facility] Last Admin: 12/25/18 10:47 Dose: 1 patch Clonidine HCl (Catapres) 0.1 mg PO BID [facility] Stop: 12/26/18 18:01 Last Admin: 12/25/18 18:45 Dose: 0.1 mg Dextrose (Dextrose 50% Inj) 0 ml IV STAT PRN; Protocol PRN Reason: Hypoglycemia Protocol Glimepiride (Amaryl) 2 mg PO DAILY [facility] Heparin Sodium (Porcine) (Heparin) 5,000 units SC Q12 [facility]; Protocol Last Admin: 12/25/18 21:58 Dose: 5,000 units Dextrose (Dextrose 5% In Water 1000 Ml) 1,000 mls @ 0 mls/hr IV .Q0M PRN; Protocol PRN Reason: Hypoglycemia Protocol Meropenem 250 mg/ Sodium (Chloride) 100 mls @ 100 mls/hr IVPB Q12 [facility]; Protocol Stop: 12/31/18 22:01 Last Admin: 12/25/18 21:54 Dose: 100 mls/hr Insulin Human Regular (Humulin R Low) 0 units SC ACHS [facility]; Protocol Last Admin: 12/25/18 17:37 Dose: 1 unit Sevelamer HCl (Renagel) 800 mg PO WM [facility] Last Admin: 12/25/18 17:38 Dose: 800 mg Torsemide (Demadex) 10 mg PO DAILY [facility] Last Admin: 12/25/18 10:48 Dose: 10 mg Results - Vital Signs Recent Vital Signs: Last Vital Signs Temp 98.0 F 12/25/18 23:29 Pulse 70 12/25/18 23:29 Resp 20 12/25/18 23:29 BP 163/62 H 12/25/18 23:29 Pulse Ox 97 12/25/18 23:29 - Labs Result Diagrams: 12/25/18 06:50 12/25/18 06:50 Labs: Laboratory Results - last 24 hr 12/24/18 12/24/18 12/24/18 08:50 08:50 08:50 WBC RBC Hgb Hct MCV MCH MCHC RDW Plt Count MPV Neut % (Auto) Lymph % (Auto) [place] % (Auto) Eos % (Auto) Baso % (Auto) Lymph # (Auto) [place] # (Auto) Eos # (Auto) Baso # (Auto) Absolute Neuts (auto) Sodium Potassium Chloride Carbon Dioxide Anion Gap BUN Creatinine Est GFR ( Amer) Est GFR (Non-Af Amer) POC Glucose (mg/dL) Random Glucose Calcium Phosphorus Magnesium Iron TIBC % Saturation Ferritin Total Bilirubin AST ALT Alkaline Phosphatase Total Protein Total Protein (PEP) 5.2 L Albumin Albumin (PEP) 2.3 L Globulin Albumin/Globulin Ratio Iaykr-7-Wutgvrzep 0.4 H Mberd-1-Woikzkyoz 0.9 Plli-7-Akuqzqxb 0.4 Qpor-8-Dmmehrfu 0.4 Gamma Globulins 0.8 Abnorm Protein Band 1 TEST NOT PERFORMED Abnorm Protein Band 2 TEST NOT PERFORMED Abnorm Protein Band 3 TEST NOT PERFORMED Vitamin B12 Folate Calcium (PTH Intact) 8.0 L PTH w/Ion &Tot Calcium 113 H Stool Occult Blood ROBER & SPEP Interp See note Serum Immunofixation Detected H 12/25/18 12/25/18 12/25/18 06:50 06:50 07:17 WBC 7.9 RBC 2.66 L Hgb 8.1 L Hct 24.7 L MCV 92.9 D MCH 30.5 MCHC 32.8 RDW 15.6 H Plt Count 207 MPV 10.4 Neut % (Auto) 70.7 H Lymph % (Auto) 15.9 L [place] % (Auto) 9.3 H Eos % (Auto) 3.8 Baso % (Auto) 0.3 Lymph # (Auto) 1.3 [place] # (Auto) 0.7 H Eos # (Auto) 0.3 Baso # (Auto) 0.02 Absolute Neuts (auto) 5.55 Sodium 138 Potassium 4.9 Chloride 110 H Carbon Dioxide 23 Anion Gap 11 BUN 51 H Creatinine 2.9 H Est GFR ( Amer) 20 Est GFR (Non-Af Amer) 16 POC Glucose (mg/dL) 162 H Random Glucose 175 H Calcium 8.3 L Phosphorus 5.5 H Magnesium 1.8 Iron TIBC % Saturation Ferritin Total Bilirubin 0.3 AST 37 H ALT 23 Alkaline Phosphatase 259 H D Total Protein 6.1 Total Protein (PEP) Albumin 3.0 Albumin (PEP) Globulin 3.2 Albumin/Globulin Ratio 0.9 L Jiwor-5-Dgofoenxk Fodud-7-Zwkhlqajz Xamq-1-Erasdtup Ossv-2-Ojdhaqfz Gamma Globulins Abnorm Protein Band 1 Abnorm Protein Band 2 Abnorm Protein Band 3 Vitamin B12 Folate Calcium (PTH Intact) PTH w/Ion &Tot Calcium Stool Occult Blood ROBER & SPEP Interp Serum Immunofixation 12/25/18 12/25/18 12/25/18 08:00 10:30 10:30 WBC RBC Hgb Hct MCV MCH MCHC RDW Plt Count MPV Neut % (Auto) Lymph % (Auto) [place] % (Auto) Eos % (Auto) Baso % (Auto) Lymph # (Auto) [place] # (Auto) Eos # (Auto) Baso # (Auto) Absolute Neuts (auto) Sodium Potassium Chloride Carbon Dioxide Anion Gap BUN Creatinine Est GFR ( Amer) Est GFR (Non-Af Amer) POC Glucose (mg/dL) Random Glucose Calcium Phosphorus Magnesium Iron 285 H TIBC 214 L % Saturation 133 H Ferritin 291.0 Total Bilirubin AST ALT Alkaline Phosphatase Total Protein Total Protein (PEP) Albumin Albumin (PEP) Globulin Albumin/Globulin Ratio Cenen-3-Zumtehwel Iwdgg-4-Ljbdzucau Dvlh-9-Cevgadox Mvnw-8-Fxahbzaq Gamma Globulins Abnorm Protein Band 1 Abnorm Protein Band 2 Abnorm Protein Band 3 Vitamin B12 559 Folate 7.6 Calcium (PTH Intact) PTH w/Ion &Tot Calcium Stool Occult Blood Positive H ROBER & SPEP Interp Serum Immunofixation 12/25/18 12/25/18 15:50 21:38 WBC RBC Hgb Hct MCV MCH MCHC RDW Plt Count MPV Neut % (Auto) Lymph % (Auto) [place] % (Auto) Eos % (Auto) Baso % (Auto) Lymph # (Auto) [place] # (Auto) Eos # (Auto) Baso # (Auto) Absolute Neuts (auto) Sodium Potassium Chloride Carbon Dioxide Anion Gap BUN Creatinine Est GFR ( Amer) Est GFR (Non-Af Amer) POC Glucose (mg/dL) 169 H 221 H Random Glucose Calcium Phosphorus Magnesium Iron TIBC % Saturation Ferritin Total Bilirubin AST ALT Alkaline Phosphatase Total Protein Total Protein (PEP) Albumin Albumin (PEP) Globulin Albumin/Globulin Ratio Dvwuw-1-Awdnzdmgr Kqrjh-9-Vukmsnpii Mjou-1-Alsrxxub Eqsn-8-Lxricugk Gamma Globulins Abnorm Protein Band 1 Abnorm Protein Band 2 Abnorm Protein Band 3 Vitamin B12 Folate Calcium (PTH Intact) PTH w/Ion &Tot Calcium Stool Occult Blood ROBER & SPEP Interp Serum Immunofixation Attending/Attestation - Attestation I have personally seen and examined this patient.: Yes I have fully participated in the care of the patient.: Yes I have reviewed all pertinent clinical information: Yes Notes (Text): nicola 12/25/18 23:52
[2018-12-25 17:00] LABS: FOLATE 7.6 ng/mL
--- NOTE | 2018-12-25 20:00 | CP.PCM.PN ---
<Judson Curry - Last Filed: 12/25/18 20:00> Subjective - Date & Time of Evaluation Date of Evaluation: 12/25/18 Time of Evaluation: 12:00 - Subjective Subjective: INTERNAL MEDICINE PROGRESS NOTE FOR DR. MEKA Curry PGY1 Pt seen and examined at bedside this am. No acute events overnight. Pt tolerating diet, tolerating physical therapy. Denies ROS Glass Checker: [id number] Objective - Vital Signs/Intake and Output Vital Signs (last 24 hours): Temp Pulse Resp BP Pulse Ox 97.8 F 74 18 182/84 H 98 12/25/18 17:45 12/25/18 18:37 12/25/18 17:45 12/25/18 18:37 12/25/18 06:00 Intake and Output: 12/25/18 12/26/18 18:59 06:59 Intake Total 1240 Output Total 3 Balance 1237 - Medications Medications: Current Medications Amlodipine Besylate (Norvasc) 10 mg PO DAILY [facility] Last Admin: 12/25/18 10:47 Dose: 10 mg Atorvastatin Calcium (Lipitor) 40 mg PO DAILY [facility] Last Admin: 12/25/18 10:47 Dose: 40 mg Carvedilol (Coreg) 12.5 mg PO BID [facility] Last Admin: 12/25/18 17:38 Dose: 12.5 mg Clonidine HCl (Catapres Tts1 0.1 Mg/24 Hr) 1 patch TD QWK [facility] Last Admin: 12/25/18 10:47 Dose: 1 patch Clonidine HCl (Catapres) 0.1 mg PO BID [facility] Stop: 12/26/18 18:01 Last Admin: 12/25/18 18:45 Dose: 0.1 mg Dextrose (Dextrose 50% Inj) 0 ml IV STAT PRN; Protocol PRN Reason: Hypoglycemia Protocol Glimepiride (Amaryl) 2 mg PO DAILY [facility] Heparin Sodium (Porcine) (Heparin) 5,000 units SC Q12 [facility]; Protocol Last Admin: 12/25/18 10:47 Dose: 5,000 units Dextrose (Dextrose 5% In Water 1000 Ml) 1,000 mls @ 0 mls/hr IV .Q0M PRN; Protocol PRN Reason: Hypoglycemia Protocol Meropenem 250 mg/ Sodium (Chloride) 100 mls @ 100 mls/hr IVPB Q12 [facility]; Protocol Stop: 12/31/18 22:01 Last Admin: 12/25/18 10:50 Dose: 100 mls/hr Insulin Human Regular (Humulin R Low) 0 units SC ACHS TL; Protocol Last Admin: 12/25/18 17:37 Dose: 1 unit Sevelamer HCl (Renagel) 800 mg PO WM TL Last Admin: 12/25/18 17:38 Dose: 800 mg Torsemide (Demadex) 10 mg PO DAILY [facility] Last Admin: 12/25/18 10:48 Dose: 10 mg - Labs Labs: 12/25/18 06:50 12/25/18 06:50 PT 13.4 SECONDS (9.4-12.5) H 12/23/18 10:56 INR 1.19 12/23/18 10:56 APTT 35.0 Seconds (26.9-38.3) 12/23/18 10:56 - Additional Findings Additional findings: - Additional Findings Additional findings: - Constitutional Appears: Well, Non-toxic, No Acute Distress, Chronically Ill - Head Exam Head Exam: NORMAL INSPECTION, NORMOCEPHALIC - Eye Exam Eye Exam: EOMI, Normal appearance - ENT Exam ENT Exam: Mucous Membranes Moist, Normal Exam - Neck Exam Neck exam: Positive for: Normal Inspection. Negative for: Meningismus - Respiratory Exam Respiratory Exam: Clear to Auscultation Bilateral, NORMAL BREATHING PATTERN - Cardiovascular Exam Cardiovascular Exam: REGULAR RHYTHM, +S1, +S2 - GI/Abdominal Exam GI & Abdominal Exam: Soft. absent: Distended, Guarding Additional comments: appendectomy & cholecystectomy scars noted. C/D/I - Extremities Exam Extremities exam: Positive for: pedal edema. Negative for: calf tenderness - Back Exam Back exam: NORMAL INSPECTION - Neurological Exam Neurological exam: Alert Additional comments: - Psychiatric Exam Psychiatric exam: Normal Affect - Skin Skin Exam: Dry, Intact, Warm Assessment and Plan - Assessment and Plan (Free Text) Assessment: 68 y/o belizean speaking F with PMHx of CKD, DM2, HTN, HLD, anemia presents to ED for change mental status, lethargy and weakness in the setting of UTI and symptomatic anemia Plan: Toxic metabolic encephalopathy Likely 2/2 to UTI. U/A revealing (+) nitrate. Leukocytosis Mental status improved Urine cultures growing E. Coli, B-hemolytic group B strep. Pt has history of ESBL and E. Coli resistant to multiple organisms. 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 eGFR. Biopsy results received, revealing diabetic nephropathy vein mapping completed. surgery consulted for outpatient fistula formation continue home renvela continue renvela Strict I&Os Nephro following. appreciate recs Symptomatic anemia (+) FOBT s/p 1u pRBC. Hgb responded to 8.1 Iron studies reveal increased iron, however may be inaccurate after iron infusion Heme-onc following, appreciate recs DM2 Continue home glimepiride Insulin SS Accuchecks ACHS Hypertension Continue home amlodipine, carvedilol, clonidine DVT/GI PPx: Hep Case seen, examined and discussed with attending physician, Dr. Meka Curry PGY1 <Geovanni Evangelista - Last Filed: 12/26/18 17:01> Objective - Vital Signs/Intake and Output Vital Signs (last 24 hours): Temp Pulse Resp BP Pulse Ox 97.9 F 65 20 173/72 H 99 12/26/18 12:00 12/26/18 12:00 12/26/18 12:00 12/26/18 12:00 12/26/18 06:00 Intake and Output: 12/26/18 12/26/18 06:59 18:59 Intake Total 0 Balance 0 - Medications Medications: Current Medications Amlodipine Besylate (Norvasc) 10 mg PO DAILY [facility] Last Admin: 12/26/18 10:10 Dose: Not Given Atorvastatin Calcium (Lipitor) 40 mg PO DAILY [facility] Last Admin: 12/26/18 10:09 Dose: 40 mg Carvedilol (Coreg) 12.5 mg PO BID [facility] Last Admin: 12/26/18 10:09 Dose: 12.5 mg Clonidine HCl (Catapres Tts1 0.1 Mg/24 Hr) 1 patch TD QWK [facility] Last Admin: 12/25/18 10:47 Dose: 1 patch Clonidine HCl (Catapres) 0.1 mg PO BID [facility] Stop: 12/26/18 18:01 Last Admin: 12/26/18 10:09 Dose: 0.1 mg Dextrose (Dextrose 50% Inj) 0 ml IV STAT PRN; Protocol PRN Reason: Hypoglycemia Protocol Ferrous Sulfate (Feosol Liq) 300 mg PO TID [facility] Glimepiride (Amaryl) 2 mg PO DAILY [facility] Heparin Sodium (Porcine) (Heparin) 5,000 units SC Q12 TL; Protocol Last Admin: 12/26/18 10:09 Dose: 5,000 units Hydralazine HCl (Apresoline) 25 mg PO QID [facility] Dextrose (Dextrose 5% In Water 1000 Ml) 1,000 mls @ 0 mls/hr IV .Q0M PRN; Protocol PRN Reason: Hypoglycemia Protocol Meropenem 250 mg/ Sodium (Chloride) 100 mls @ 100 mls/hr IVPB Q12 [facility]; Protocol Stop: 12/31/18 22:01 Last Admin: 12/26/18 11:25 Dose: 100 mls/hr Insulin Human Regular (Humulin R Low) 0 units SC ACHS [facility]; Protocol Last Admin: 12/26/18 13:29 Dose: 2 unit Sevelamer HCl (Renagel) 800 mg PO WM [facility] Last Admin: 12/26/18 13:29 Dose: 800 mg Torsemide (Demadex) 10 mg PO DAILY [facility] Last Admin: 12/26/18 10:09 Dose: 10 mg - Labs Labs: 12/26/18 07:35 12/26/18 07:35 PT 13.4 SECONDS (9.4-12.5) H 12/23/18 10:56 INR 1.19 12/23/18 10:56 APTT 35.0 Seconds (26.9-38.3) 12/23/18 10:56 Attending/Attestation - Attestation I have personally seen and examined this patient.: Yes I have fully participated in the care of the patient.: Yes I have reviewed all pertinent clinical information, including history, physical exam and plan: Yes Notes (Text): 12/26/18 16:59 attending note; Patient seen and examined resident. patient is more alert and awake. Patient is a 68 year old belizean speaking Female with PMHx of CKD, DM2, HTN, HLD, anemia presents to ED with daughter at bedside. Patient was brought in by daughter because of change in mental status, lethargy and weakness since this am. Daughter reports she had visited her this am when she noticed the change in mental status and lethargy. 1. Altered mental status/lethargy; toxic metabolic encephalopathy. possibly secondary to UIT. urine culture is positive for ESBL. on contact isolation. Started on Merem. ID evaluation appreciated. CT head negative for acute CVA. MRI of the head is negative. Neurology evaluation appreciated. 2. Chronic kidney disease; creatinine is 3.3. Nephrology evaluation appreciated. continue torsemide. clonidine patch. patient had recent biopsy at [facility], [place]. Patient had advanced diabetic nephropathy. vein mapping ordered. Surgery evaluation requested for AV fistula placement. 3. Anemia; hemoglobin is 8.1. s/p1 unit PRBC transfusion yesterday. Stool guaiac is positive. GI evaluation appreciated. Needs EGD and colonoscopy as outpatient. 4. hypertension; continue Coreg and norvasc. on clonidine patch. 5. diabetes; continue regular insulin sliding scale. 6. lower extremity edema; lower extremity Doppler is negative. PT evaluation appreciated. upon discharge the patient will follow-up with PMD . 12/26/18 17:00
[2018-12-26] MEDS ORDERED: Pantoprazole 40 mg EC Tab PO SCH (06:00)
--- NOTE | 2018-12-26 06:39 | CP.PCM.PN ---
<Starla Brown - Last Filed: 12/26/18 11:53> Subjective - Date & Time of Evaluation Date of Evaluation: 12/26/18 Time of Evaluation: 07:45 - Subjective Subjective: Nephrology progress note for Dr. Santiago's service Patient with no acute events overnight. States she's eating well. Admits to cough. Denies cp, or sob. Objective - Vital Signs/Intake and Output Vital Signs (last 24 hours): Temp Pulse Resp BP Pulse Ox 98.0 F 64 20 163/62 H 97 12/25/18 23:29 12/26/18 02:00 12/25/18 23:29 12/25/18 23:29 12/25/18 23:29 Intake and Output: 12/25/18 12/26/18 18:59 06:59 Intake Total 1240 Output Total 3 Balance 1237 - Medications Medications: Current Medications Amlodipine Besylate (Norvasc) 10 mg PO DAILY [facility] Last Admin: 12/25/18 10:47 Dose: 10 mg Atorvastatin Calcium (Lipitor) 40 mg PO DAILY [facility] Last Admin: 12/25/18 10:47 Dose: 40 mg Carvedilol (Coreg) 12.5 mg PO BID [facility] Last Admin: 12/25/18 17:38 Dose: 12.5 mg Clonidine HCl (Catapres Tts1 0.1 Mg/24 Hr) 1 patch TD QWK [facility] Last Admin: 12/25/18 10:47 Dose: 1 patch Clonidine HCl (Catapres) 0.1 mg PO BID [facility] Stop: 12/26/18 18:01 Last Admin: 12/25/18 18:45 Dose: 0.1 mg Dextrose (Dextrose 50% Inj) 0 ml IV STAT PRN; Protocol PRN Reason: Hypoglycemia Protocol Glimepiride (Amaryl) 2 mg PO DAILY [facility] Heparin Sodium (Porcine) (Heparin) 5,000 units SC Q12 [facility]; Protocol Last Admin: 12/25/18 21:58 Dose: 5,000 units Dextrose (Dextrose 5% In Water 1000 Ml) 1,000 mls @ 0 mls/hr IV .Q0M PRN; Protocol PRN Reason: Hypoglycemia Protocol Meropenem 250 mg/ Sodium (Chloride) 100 mls @ 100 mls/hr IVPB Q12 [facility]; Protocol Stop: 02/13/19 22:01 Last Admin: 12/25/18 21:54 Dose: 100 mls/hr Insulin Human Regular (Humulin R Low) 0 units SC ACHS [facility]; Protocol Last Admin: 12/25/18 22:55 Dose: Not Given Sevelamer HCl (Renagel) 800 mg PO WM [facility] Last Admin: 12/25/18 17:38 Dose: 800 mg Torsemide (Demadex) 10 mg PO DAILY [facility] Last Admin: 12/25/18 10:48 Dose: 10 mg - Labs Labs: 12/25/18 06:50 12/25/18 06:50 PT 13.4 SECONDS (9.4-12.5) H 12/23/18 10:56 INR 1.19 12/23/18 10:56 APTT 35.0 Seconds (26.9-38.3) 12/23/18 10:56 - Constitutional Appears: No Acute Distress - Head Exam Head Exam: ATRAUMATIC, NORMAL INSPECTION, NORMOCEPHALIC - Eye Exam Eye Exam: Normal appearance - ENT Exam ENT Exam: Mucous Membranes Moist - Neck Exam Neck Exam: Normal Inspection - Respiratory Exam Respiratory Exam: Wheezes, NORMAL BREATHING PATTERN. absent: Clear to Ausculation Bilateral, Rales, Rhonchi, Respiratory Distress, Stridor - Cardiovascular Exam Cardiovascular Exam: REGULAR RHYTHM, RRR, +S1, +S2. absent: Bradycardia, Tachycardia, Diastolic murmur, Murmur - GI/Abdominal Exam GI & Abdominal Exam: Soft, Normal Bowel Sounds. absent: Distended, Firm, Guarding, Rigid, Tenderness, Rebound Additional comments: + obese abdomen - Extremities Exam Extremities Exam: Normal Inspection, Pedal Edema - Back Exam Back Exam: NORMAL INSPECTION - Neurological Exam Neurological Exam: Alert, Awake, Oriented x3 - Psychiatric Exam Psychiatric exam: Normal Affect, Normal Mood - Skin Skin Exam: Dry, Warm Assessment and Plan (1) CKD stage 4 due to type 2 diabetes mellitus Assessment & Plan: Continue with renagel 800 mg WM, Continue with torsemide 10 mg daily, Patient and family would prefer to hold off on AVF creation Renal function remains stable, will continue to avoid nephrotox Status: Chronic (2) Acute kidney injury superimposed on chronic kidney disease Status: Chronic (3) Urinary tract infection Assessment & Plan: On merrem for ESBL UTI Status: Acute (4) Encephalopathy Status: Resolved (5) Hypertension Assessment & Plan: BP is uncontrolled Continue with norvasc 10 daily, coreg 12.5 mg bid, clonidine patch qwk, Received 0.1 mg of catapres this AM, Continue with torsemide 10 mg daily Patient just received a dose of 40 mg ivp Lasix once, will continue to monitor and adjust meds prn. Status: Chronic (6) Diabetes Status: Chronic (7) Anemia Assessment & Plan: S/P 1 unit of prbc transfused Patient getting iron loading Heme following Gi following for + FOBT. Status: Acute (8) Chronic kidney disease-mineral and bone disorder Status: Chronic <Darron Santiago - Last Filed: 12/26/18 22:33> Objective - Vital Signs/Intake and Output Vital Signs (last 24 hours): Temp Pulse Resp BP Pulse Ox 98.8 F 70 18 147/61 98 12/26/18 17:03 12/26/18 19:31 12/26/18 17:03 12/26/18 20:29 12/26/18 17:03 Intake and Output: 12/26/18 12/27/18 18:59 06:59 Intake Total 100 Balance 100 - Medications Medications: Current Medications Amlodipine Besylate (Norvasc) 10 mg PO DAILY [facility] Last Admin: 12/26/18 10:10 Dose: Not Given Atorvastatin Calcium (Lipitor) 40 mg PO DAILY [facility] Last Admin: 12/26/18 10:09 Dose: 40 mg Carvedilol (Coreg) 12.5 mg PO BID [facility] Last Admin: 12/26/18 17:41 Dose: 12.5 mg Clonidine HCl (Catapres Tts1 0.1 Mg/24 Hr) 1 patch TD QWK [facility] Last Admin: 12/25/18 10:47 Dose: 1 patch Dextrose (Dextrose 50% Inj) 0 ml IV STAT PRN; Protocol PRN Reason: Hypoglycemia Protocol Ferrous Sulfate (Feosol Liq) 300 mg PO TID [facility] Last Admin: 12/26/18 17:41 Dose: 300 mg Glimepiride (Amaryl) 1 mg PO DAILY [facility] Last Admin: 12/26/18 17:40 Dose: 1 mg Heparin Sodium (Porcine) (Heparin) 5,000 units SC Q12 [facility]; Protocol Last Admin: 12/26/18 10:09 Dose: 5,000 units Hydralazine HCl (Apresoline) 25 mg PO QID [facility] Last Admin: 12/26/18 17:41 Dose: 25 mg Hydralazine HCl (Apresoline) 10 mg IVP Q6 PRN PRN Reason: Systolic Blood Pressure Dextrose (Dextrose 5% In Water 1000 Ml) 1,000 mls @ 0 mls/hr IV .Q0M PRN; Protocol PRN Reason: Hypoglycemia Protocol Meropenem 250 mg/ Sodium (Chloride) 100 mls @ 100 mls/hr IVPB Q12 [facility]; Protocol Stop: 12/31/18 22:01 Last Admin: 12/26/18 11:25 Dose: 100 mls/hr Iron Sucrose 100 mg/ Sodium (Chloride) 105 mls @ 210 mls/hr IVPB DAILY TL Stop: 12/30/18 10:29 Insulin Human Regular (Humulin R Low) 0 units SC ACHS [facility]; Protocol Last Admin: 12/26/18 21:52 Dose: Not Given Sevelamer HCl (Renagel) 800 mg PO WM [facility] Last Admin: 12/26/18 17:40 Dose: 800 mg Torsemide (Demadex) 10 mg PO DAILY [facility] Last Admin: 12/26/18 10:09 Dose: 10 mg - Labs Labs: 12/26/18 07:35 12/26/18 07:35 PT 13.4 SECONDS (9.4-12.5) H 12/23/18 10:56 INR 1.19 12/23/18 10:56 APTT 35.0 Seconds (26.9-38.3) 12/23/18 10:56 Attending/Attestation - Attestation I have personally seen and examined this patient.: Yes I have fully participated in the care of the patient.: Yes I have reviewed all pertinent clinical information, including history, physical exam and plan: Yes Notes (Text): Patient seen and examined; I agree with the resident's note as above with the following additions/edits: Patient with htn, dm, and late CKD IV, admitted with E coli ESBL UTI; Mild fluctuations in serum creatinine likely hemodynamically mediated; otherwise, relatively stable renal function with stable volume and electrolyte status; no urgent indication to initiate dialysis currently; however, we will keep counseling patient/family that dialysis planning should be started as soon as possible to prevent emergent need for HD; Hypertensive CKD, BP still uncontrolled; clonidine patch just added yesterday, giving PO doses till patch takes effect; has mild lower leg edema, otherwise lungs clear and patient denies dyspnea; will keep on torsemide 10 mg; should avoid over-diuresing in patient who is close to being ESRD; Anemia of CKD with component of iron deficiency; hgb still well below goal, will continue with IV iron infusions; should re-dose aranesp before d/c; CKD mineral bone disorder with PTH only mildly elevated; will supplement with ergocalciferol 50,000 u weekly; -Obtaining 24 hr urine for CrCl; -Avoid nephrotoxic agents (NSAIDS, etc); -Dose antibiotics for CrCl < 20 ml/min for now;
[2018-12-26 07:46] LABS: BASO # 0.01 K/mm3 (0.0-2.0); BASO % 0.1 % (0.0-3.0); EOS # 0.4 (0.0-0.7); EOS % 6.1 % (1.5-5.0); HEMOGLOBIN 7.8 g/dL (12.0-16.0); LYMPH # 1.4 (1.2-3.4); LYMPH % 19.5 % (22.0-35.0); MEAN CELL VOLUME 92.5 fl (80.0-105.0); MEAN CORPUSCULAR HEMOGLOBIN 30.7 pg (25.0-35.0); MEAN CORPUSCULAR HGB CONC 33.2 g/dl (31.0-37.0); MEAN PLATELET VOLUME 10.5 fl (7.0-11.0); MONO # 0.7 (0.1-0.6); MONO % 10.1 % (1.0-6.0); RBC 2.54 10^6/uL (3.5-6.1); RED CELL DISTRIBUTION WIDTH 15.2 % (11.5-14.5)
[2018-12-26 08:09] LABS: ALB/GLOB RATIO 0.9 (1.1-1.8); ALBUMIN 2.8 g/dL (3.0-4.8)
[2018-12-26] MEDS: Insulin Reg-LOW-Coverage SC SCH ×4 (08:15→21:52)
--- NOTE | 2018-12-26 10:42 | CP.PCM.PN ---
<Barron Gayle - Last Filed: 12/26/18 10:38> Subjective - Date & Time of Evaluation Date of Evaluation: 12/26/18 Time of Evaluation: 10:38 - Subjective Subjective: GI Progress Note for Dr. Narayan Patient seen and examined at bedside. No acute overnight events. Patient denied CP, SOB, n/v/d, abdominal pain, fever, chills, CARMONA, melena, or hematochezia. Objective - Vital Signs/Intake and Output Vital Signs (last 24 hours): Temp Pulse Resp BP Pulse Ox 97.8 F 70 20 165/59 H 99 12/26/18 06:00 12/26/18 10:09 12/26/18 06:00 12/26/18 10:09 12/26/18 06:00 Intake and Output: 12/26/18 12/26/18 06:59 18:59 Intake Total 0 Balance 0 - Medications Medications: Current Medications Amlodipine Besylate (Norvasc) 10 mg PO DAILY [facility] Last Admin: 12/26/18 10:10 Dose: Not Given Atorvastatin Calcium (Lipitor) 40 mg PO DAILY [facility] Last Admin: 12/26/18 10:09 Dose: 40 mg Carvedilol (Coreg) 12.5 mg PO BID [facility] Last Admin: 12/26/18 10:09 Dose: 12.5 mg Clonidine HCl (Catapres Tts1 0.1 Mg/24 Hr) 1 patch TD QWK [facility] Last Admin: 12/25/18 10:47 Dose: 1 patch Clonidine HCl (Catapres) 0.1 mg PO BID [facility] Stop: 12/26/18 18:01 Last Admin: 12/26/18 10:09 Dose: 0.1 mg Dextrose (Dextrose 50% Inj) 0 ml IV STAT PRN; Protocol PRN Reason: Hypoglycemia Protocol Glimepiride (Amaryl) 2 mg PO DAILY [facility] Heparin Sodium (Porcine) (Heparin) 5,000 units SC Q12 [facility]; Protocol Last Admin: 12/26/18 10:09 Dose: 5,000 units Dextrose (Dextrose 5% In Water 1000 Ml) 1,000 mls @ 0 mls/hr IV .Q0M PRN; Protocol PRN Reason: Hypoglycemia Protocol Meropenem 250 mg/ Sodium (Chloride) 100 mls @ 100 mls/hr IVPB Q12 [facility]; Protocol Stop: 12/31/18 22:01 Last Admin: 12/25/18 21:54 Dose: 100 mls/hr Insulin Human Regular (Humulin R Low) 0 units SC ACHS [facility]; Protocol Last Admin: 12/26/18 08:15 Dose: Not Given Sevelamer HCl (Renagel) 800 mg PO WM [facility] Last Admin: 12/26/18 08:37 Dose: 800 mg Torsemide (Demadex) 10 mg PO DAILY [facility] Last Admin: 12/26/18 10:09 Dose: 10 mg - Labs Labs: 12/26/18 07:35 12/26/18 07:35 PT 13.4 SECONDS (9.4-12.5) H 12/23/18 10:56 INR 1.19 12/23/18 10:56 APTT 35.0 Seconds (26.9-38.3) 12/23/18 10:56 - Constitutional Appears: No Acute Distress - Head Exam Head Exam: NORMAL INSPECTION - Eye Exam Eye Exam: Normal appearance - ENT Exam ENT Exam: Mucous Membranes Moist - Respiratory Exam Respiratory Exam: Clear to Ausculation Bilateral. absent: Rales, Rhonchi, Wheezes - Cardiovascular Exam Cardiovascular Exam: REGULAR RHYTHM, RRR, +S1, +S2 - GI/Abdominal Exam GI & Abdominal Exam: Soft. absent: Distended, Guarding, Tenderness, Rebound - Extremities Exam Extremities Exam: Normal Inspection - Back Exam Back Exam: NORMAL INSPECTION - Neurological Exam Neurological Exam: Alert, Awake, Oriented x3 - Skin Skin Exam: Normal Color, Warm Assessment and Plan - Assessment and Plan (Free Text) Assessment: 68 yo F with PMH of DM2, CKD stage IV (diabetic), HTN, anemia, fatty liver, UTI and obesity presents to [place] for AMS 2/2 UTI. GI consulted for anemia and positive stool for occult blood. Abdomen/pelvis CT from prior admission 07/2018 reviewed, negative. 1. Anemia r/o GIB vs chronic disease 2. Toxic Metabolic Encephalopathy 2/2 UTI 3. JOSUE on CKD Plan: - Anemia could be multifactorial in setting of CKD and decreased Epo production vs GIB - Recommend endoscopy, could be done electively will discuss scheduling with Dr. Narayan - Weekly Aranesp per nephro/hematology - IV abx per ID - For further recommendations, please see attestation. Patient discussed in detail with Dr. Narayan. Srini Gayle, DO PGY2 <Helene,J Luisdasia V - Last Filed: 12/27/18 00:15> Objective - Vital Signs/Intake and Output Vital Signs (last 24 hours): Temp Pulse Resp BP Pulse Ox 98.8 F 70 18 147/61 98 12/26/18 17:03 12/26/18 19:31 12/26/18 17:03 12/26/18 20:29 12/26/18 17:03 Intake and Output: 12/26/18 12/27/18 18:59 06:59 Intake Total 100 Balance 100 - Medications Medications: Current Medications Amlodipine Besylate (Norvasc) 10 mg PO DAILY [facility] Last Admin: 12/26/18 10:10 Dose: Not Given Atorvastatin Calcium (Lipitor) 40 mg PO DAILY [facility] Last Admin: 12/26/18 10:09 Dose: 40 mg Carvedilol (Coreg) 12.5 mg PO BID [facility] Last Admin: 12/26/18 17:41 Dose: 12.5 mg Clonidine HCl (Catapres Tts1 0.1 Mg/24 Hr) 1 patch TD QWK [facility] Last Admin: 12/25/18 10:47 Dose: 1 patch Dextrose (Dextrose 50% Inj) 0 ml IV STAT PRN; Protocol PRN Reason: Hypoglycemia Protocol Ergocalciferol (Drisdol 50,000 Intl Units Cap) 1 cap PO Q7D [facility] Ferrous Sulfate (Feosol Liq) 300 mg PO TID [facility] Last Admin: 12/26/18 17:41 Dose: 300 mg Glimepiride (Amaryl) 1 mg PO DAILY [facility] Last Admin: 12/26/18 17:40 Dose: 1 mg Heparin Sodium (Porcine) (Heparin) 5,000 units SC Q12 [facility]; Protocol Last Admin: 12/26/18 22:25 Dose: Not Given Hydralazine HCl (Apresoline) 25 mg PO QID [facility] Last Admin: 12/26/18 22:25 Dose: Not Given Hydralazine HCl (Apresoline) 10 mg IVP Q6 PRN PRN Reason: Systolic Blood Pressure Dextrose (Dextrose 5% In Water 1000 Ml) 1,000 mls @ 0 mls/hr IV .Q0M PRN; Protocol PRN Reason: Hypoglycemia Protocol Meropenem 250 mg/ Sodium (Chloride) 100 mls @ 100 mls/hr IVPB Q12 [facility]; Protocol Stop: 12/31/18 22:01 Last Admin: 12/26/18 11:25 Dose: 100 mls/hr Iron Sucrose 100 mg/ Sodium (Chloride) 105 mls @ 210 mls/hr IVPB DAILY [facility] Stop: 12/30/18 10:29 Insulin Human Regular (Humulin R Low) 0 units SC ACHS [facility]; Protocol Last Admin: 12/26/18 21:52 Dose: Not Given Sevelamer HCl (Renagel) 800 mg PO WM [facility] Last Admin: 12/26/18 17:40 Dose: 800 mg Torsemide (Demadex) 10 mg PO DAILY [facility] Last Admin: 12/26/18 10:09 Dose: 10 mg - Labs Labs: 12/26/18 07:35 12/26/18 07:35 PT 13.4 SECONDS (9.4-12.5) H 12/23/18 10:56 INR 1.19 12/23/18 10:56 APTT 35.0 Seconds (26.9-38.3) 12/23/18 10:56 Attending/Attestation - Attestation I have personally seen and examined this patient.: Yes I have fully participated in the care of the patient.: Yes I have reviewed all pertinent clinical information, including history, physical exam and plan: Yes Notes (Text): 12/27/18 00:15 p
[2018-12-26] MEDS ORDERED: Albuterol-Ipratrop 3 mg / 0.5 (3 ml) UD IH STA (12:11)
--- NOTE | 2018-12-26 12:54 | CP.PCM.PN ---
Subjective - Date & Time of Evaluation Date of Evaluation: 12/26/18 Time of Evaluation: 11:15 - Subjective Subjective: Afebrile, comfortable. Objective - Vital Signs/Intake and Output Vital Signs (last 24 hours): Temp Pulse Resp BP Pulse Ox 97.8 F 64 20 162/79 H 98 12/25/18 12:00 12/25/18 12:00 12/25/18 12:00 12/25/18 12:00 12/25/18 06:00 Intake and Output: 12/25/18 12/25/18 06:59 18:59 Intake Total 2000 100 Output Total 400 Balance 1600 100 - Medications Medications: Current Medications Amlodipine Besylate (Norvasc) 10 mg PO DAILY [facility] Last Admin: 12/25/18 10:47 Dose: 10 mg Atorvastatin Calcium (Lipitor) 40 mg PO DAILY [facility] Last Admin: 12/25/18 10:47 Dose: 40 mg Carvedilol (Coreg) 12.5 mg PO BID [facility] Last Admin: 12/25/18 10:47 Dose: 12.5 mg Clonidine HCl (Catapres Tts1 0.1 Mg/24 Hr) 1 patch TD QWK [facility] Last Admin: 12/25/18 10:47 Dose: 1 patch Dextrose (Dextrose 50% Inj) 0 ml IV STAT PRN; Protocol PRN Reason: Hypoglycemia Protocol Glimepiride (Amaryl) 2 mg PO DAILY [facility] Heparin Sodium (Porcine) (Heparin) 5,000 units SC Q12 TL; Protocol Last Admin: 12/25/18 10:47 Dose: 5,000 units Dextrose (Dextrose 5% In Water 1000 Ml) 1,000 mls @ 0 mls/hr IV .Q0M PRN; Protocol PRN Reason: Hypoglycemia Protocol Meropenem 250 mg/ Sodium (Chloride) 100 mls @ 100 mls/hr IVPB Q12 [facility]; Protocol Stop: 12/31/18 22:01 Last Admin: 12/25/18 10:50 Dose: 100 mls/hr Insulin Human Regular (Humulin R Low) 0 units SC ACHS [facility]; Protocol Last Admin: 12/25/18 12:56 Dose: 1 unit Sevelamer HCl (Renagel) 800 mg PO WM [facility] Last Admin: 12/25/18 12:56 Dose: 800 mg Torsemide (Demadex) 10 mg PO DAILY [facility] Last Admin: 12/25/18 10:48 Dose: 10 mg - Labs Labs: 12/25/18 06:50 12/25/18 06:50 PT 13.4 SECONDS (9.4-12.5) H 12/23/18 10:56 INR 1.19 12/23/18 10:56 APTT 35.0 Seconds (26.9-38.3) 12/23/18 10:56 - Constitutional Appears: Chronically Ill - Head Exam Head Exam: NORMAL INSPECTION - Respiratory Exam Respiratory Exam: Decreased Breath Sounds - Cardiovascular Exam Cardiovascular Exam: +S1, +S2 - GI/Abdominal Exam GI & Abdominal Exam: Soft. absent: Tenderness Assessment and Plan - Assessment and Plan (Free Text) Plan: Asssessment systemic inflammatory response syndrome, consider sepsis due to UTI with Group B Strep and ESBL E. coli history of right pyelonephritis with ESBL E. coli acute renal failure history of herpes zoster on the left chest and shoulder areas history of sepsis secondary to left otomastoiditis history of Methicillin-resistant coagulase negative staph and Enterococci bacteremia HTN DM obesity with BMI 30 chronic renal failure Plan continue renally-adjusted Merrem day 3 for 7-10 days and will continue to monitor clinically
[2018-12-26] MEDS ORDERED: Ferrous Sulfate 300 mg/5 mL Liq UD PO SCH (18:00)
--- NOTE | 2018-12-26 19:44 | CP.PCM.PN ---
<Judson Curry - Last Filed: 12/26/18 19:32> Subjective - Date & Time of Evaluation Date of Evaluation: 12/26/18 Time of Evaluation: 12:00 - Subjective Subjective: INTERNAL MEDICINE PROGRESS NOTE FOR DR. MEAK Curry PGY1 Pt seen and examined at bedside this am. No acute events overnight. Pt denies 12 point ROS Objective - Vital Signs/Intake and Output Vital Signs (last 24 hours): Temp Pulse Resp BP Pulse Ox 98.8 F 70 18 170/66 H 98 12/26/18 17:03 12/26/18 19:31 12/26/18 17:03 12/26/18 19:31 12/26/18 17:03 Intake and Output: 12/26/18 12/27/18 18:59 06:59 Intake Total 100 Balance 100 - Medications Medications: Current Medications Amlodipine Besylate (Norvasc) 10 mg PO DAILY [facility] Last Admin: 12/26/18 10:10 Dose: Not Given Atorvastatin Calcium (Lipitor) 40 mg PO DAILY [facility] Last Admin: 12/26/18 10:09 Dose: 40 mg Carvedilol (Coreg) 12.5 mg PO BID [facility] Last Admin: 12/26/18 17:41 Dose: 12.5 mg Clonidine HCl (Catapres Tts1 0.1 Mg/24 Hr) 1 patch TD QWK [facility] Last Admin: 12/25/18 10:47 Dose: 1 patch Dextrose (Dextrose 50% Inj) 0 ml IV STAT PRN; Protocol PRN Reason: Hypoglycemia Protocol Ferrous Sulfate (Feosol Liq) 300 mg PO TID [facility] Last Admin: 12/26/18 17:41 Dose: 300 mg Glimepiride (Amaryl) 1 mg PO DAILY [facility] Last Admin: 12/26/18 17:40 Dose: 1 mg Heparin Sodium (Porcine) (Heparin) 5,000 units SC Q12 [facility]; Protocol Last Admin: 12/26/18 10:09 Dose: 5,000 units Hydralazine HCl (Apresoline) 25 mg PO QID [facility] Last Admin: 12/26/18 17:41 Dose: 25 mg Hydralazine HCl (Apresoline) 10 mg IVP Q6 PRN PRN Reason: Systolic Blood Pressure Dextrose (Dextrose 5% In Water 1000 Ml) 1,000 mls @ 0 mls/hr IV .Q0M PRN; Protocol PRN Reason: Hypoglycemia Protocol Meropenem 250 mg/ Sodium (Chloride) 100 mls @ 100 mls/hr IVPB Q12 [facility]; Protocol Stop: 12/31/18 22:01 Last Admin: 12/26/18 11:25 Dose: 100 mls/hr Insulin Human Regular (Humulin R Low) 0 units SC ACHS [facility]; Protocol Last Admin: 12/26/18 16:30 Dose: Not Given Sevelamer HCl (Renagel) 800 mg PO WM TL Last Admin: 12/26/18 17:40 Dose: 800 mg Torsemide (Demadex) 10 mg PO DAILY [facility] Last Admin: 12/26/18 10:09 Dose: 10 mg - Labs Labs: 12/26/18 07:35 12/26/18 07:35 PT 13.4 SECONDS (9.4-12.5) H 12/23/18 10:56 INR 1.19 12/23/18 10:56 APTT 35.0 Seconds (26.9-38.3) 12/23/18 10:56 - Additional Findings Additional findings: - Additional Findings Additional findings: - Additional Findings Additional findings: - Constitutional Appears: Well, Non-toxic, No Acute Distress, Chronically Ill - Head Exam Head Exam: NORMAL INSPECTION, NORMOCEPHALIC - Eye Exam Eye Exam: EOMI, Normal appearance - ENT Exam ENT Exam: Mucous Membranes Moist, Normal Exam - Neck Exam Neck exam: Positive for: Normal Inspection. Negative for: Meningismus - Respiratory Exam Respiratory Exam: Clear to Auscultation Bilateral, NORMAL BREATHING PATTERN - Cardiovascular Exam Cardiovascular Exam: REGULAR RHYTHM, +S1, +S2 - GI/Abdominal Exam GI & Abdominal Exam: Soft. absent: Distended, Guarding Additional comments: appendectomy & cholecystectomy scars noted. C/D/I - Extremities Exam Extremities exam: Positive for: pedal edema. 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 eGFR. Biopsy results received, revealing diabetic nephropathy vein mapping completed. surgery consulted for outpatient fistula formation continue home renvela Strict I&Os Nephro following. appreciate recs UTI Leukocytosis resolving. U/A revealing (+) nitrate. Urine cultures growing E. Coli, B-hemolytic group B strep Pt has history of ESBL and E. Coli resistant to multiple organisms. On contact isolation Continue IV meropenem. ID recommends continuing renally adjusted meropenem for 7-10 days Neurology/ID following Normocytic Anemia MCV 92.5. Likely ACD in the setting of CKD (+) FOBT. GI following, recommending outpatient endoscopic w/u s/p 1u pRBC. Hgb responded to 8.1 continue weekly darbepoetin infusions. recs per nephro/hematology Heme-onc following, appreciate recs DM2 Continue home glimepiride Insulin SS Accuchecks ACHS Hypertension Continue home amlodipine, carvedilol, clonidine, hydralazine DVT/GI PPx: Hep Case seen, examined and discussed with attending physician, Dr. Meka Curry PGY1 <Geovanni Evangelista - Last Filed: 12/27/18 17:38> Objective - Vital Signs/Intake and Output Vital Signs (last 24 hours): Temp Pulse Resp BP Pulse Ox 98.2 F 68 19 164/44 H 99 12/27/18 16:56 12/27/18 16:56 12/27/18 16:56 12/27/18 16:56 12/27/18 16:56 Intake and Output: 12/27/18 12/27/18 06:59 18:59 Intake Total 440 200 Output Total 200 100 Balance 240 100 - Medications Medications: Current Medications Albuterol/Ipratropium (Duoneb 3 Mg/0.5 Mg (3 Ml) Ud) 3 ml IH Q6H [facility] Last Admin: 12/27/18 14:28 Dose: 3 ml Albuterol/Ipratropium (Duoneb 3 Mg/0.5 Mg (3 Ml) Ud) 3 ml IH Q2H PRN PRN Reason: Shortness of Breath Amlodipine Besylate (Norvasc) 10 mg PO DAILY [facility] Last Admin: 12/27/18 11:58 Dose: 10 mg Atorvastatin Calcium (Lipitor) 40 mg PO DAILY [facility] Last Admin: 12/27/18 11:58 Dose: 40 mg Carvedilol (Coreg) 12.5 mg PO BID [facility] Last Admin: 12/27/18 11:58 Dose: 12.5 mg Clonidine HCl (Catapres Tts1 0.1 Mg/24 Hr) 1 patch TD QWK [facility] Last Admin: 12/25/18 10:47 Dose: 1 patch Dextrose (Dextrose 50% Inj) 0 ml IV STAT PRN; Protocol PRN Reason: Hypoglycemia Protocol Ergocalciferol (Drisdol 50,000 Intl Units Cap) 1 cap PO Q7D [facility] Last Admin: 12/27/18 12:02 Dose: 1 cap Furosemide (Lasix) 40 mg IVP BID [facility] Last Admin: 12/27/18 09:54 Dose: Not Given Glimepiride (Amaryl) 1 mg PO DAILY [facility] Last Admin: 12/27/18 11:59 Dose: 1 mg Heparin Sodium (Porcine) (Heparin) 5,000 units SC Q12 [facility]; Protocol Last Admin: 12/27/18 09:49 Dose: 5,000 units Hydralazine HCl (Apresoline) 10 mg IVP Q6 PRN PRN Reason: Systolic Blood Pressure Last Admin: 12/27/18 06:48 Dose: 10 mg Hydralazine HCl (Apresoline) 50 mg PO QID [facility] Last Admin: 12/27/18 13:39 Dose: Not Given Dextrose (Dextrose 5% In Water 1000 Ml) 1,000 mls @ 0 mls/hr IV .Q0M PRN; Protocol PRN Reason: Hypoglycemia Protocol Meropenem 250 mg/ Sodium (Chloride) 100 mls @ 100 mls/hr IVPB Q12 [facility]; Protocol Stop: 12/31/18 22:01 Last Admin: 12/27/18 12:47 Dose: 100 mls/hr Iron Sucrose 100 mg/ Sodium (Chloride) 105 mls @ 210 mls/hr IVPB DAILY [facility] Stop: 12/30/18 10:29 Last Admin: 12/27/18 13:49 Dose: 210 mls/hr Insulin Human Regular (Humulin R Low) 0 units SC ACHS [facility]; Protocol Last Admin: 12/27/18 16:55 Dose: Not Given Sevelamer HCl (Renagel) 800 mg PO WM [facility] Last Admin: 12/27/18 12:46 Dose: 800 mg Torsemide (Demadex) 10 mg PO DAILY [facility] Last Admin: 12/27/18 11:59 Dose: 10 mg - Labs Labs: 12/27/18 10:30 12/27/18 10:30 PT 13.4 SECONDS (9.4-12.5) H 12/23/18 10:56 INR 1.19 12/23/18 10:56 APTT 35.0 Seconds (26.9-38.3) 12/23/18 10:56 Attending/Attestation - Attestation I have personally seen and examined this patient.: Yes I have fully participated in the care of the patient.: Yes I have reviewed all pertinent clinical information, including history, physical exam and plan: Yes Notes (Text): 12/27/18 17:35 attending note; Patient seen and examined resident. patient is more alert and awake. Patient is a 68 year old turkish speaking Female with PMHx of CKD, DM2, HTN, HLD, anemia presents to ED with daughter at bedside. Patient was brought in by daughter because of change in mental status, lethargy and weakness since this am. Daughter reports she had visited her this am when she noticed the change in mental status and lethargy. 1. Altered mental status/lethargy; resolved. toxic metabolic encephalopathy. possibly secondary to UIT. urine culture is positive for ESBL. on contact isolation. on Merem. ID evaluation appreciated. CT head negative for acute CVA. MRI of the head is negative. Neurology evaluation appreciated. 2. Chronic kidney disease; creatinine is 3.3. Nephrology evaluation appreciated. continue torsemide. clonidine patch. patient had recent biopsy at [facility]. Patient had advanced diabetic nephropathy. vein mapping done. Surgery evaluation appreciate. Outpatient AV fistula placement recommended. 3. Anemia; hemoglobin is 8.1. s/p1 unit PRBC transfusion. continue iron. Stool guaiac is positive. GI evaluation appreciated. Needs EGD and colonoscopy as outpatient. 4. uncontrolled hypertension; continue Coreg, torsemide and norvasc. on clonidine patch. 5. diabetes; continue regular insulin sliding scale. 6. lower extremity edema; lower extremity Doppler is negative. PT evaluation appreciated. case discussed with patient's PMD in detail. Patient's family initially requested transfer to another hospital where PMD has privileges to see patient. patient will be currently treated in [place]. Upon discharge patient will get further outpatient workup per PMDs recommendation. Patient's family does not want any procedures in our hospital. upon discharge the patient will follow-up with PMD .
[2018-12-27] MEDS ORDERED: Albuterol-Ipratrop 3 mg / 0.5 (3 ml) UD IH STA (00:40)
[2018-12-27 02:31] LABS: BARBITURATES, UR NEGATIVE (NEGATIVE); BENZODIAZEPINES, UR NEGATIVE (NEGATIVE); OPIATES, UR NEGATIVE (NEGATIVE); PHENCYCLIDINE, UR NEGATIVE (NEGATIVE)
[2018-12-27] MEDS: Insulin Reg-LOW-Coverage SC SCH ×3 (08:16→16:55)
[2018-12-27] MEDS ORDERED: Albuterol-Ipratrop 3 mg / 0.5 (3 ml) UD IH PRN ×2 (09:14→12:06)
--- NOTE | 2018-12-27 10:38 | RAD ---
Date of service: 12/27/2018 HISTORY: wheezing/crackles SOB COMPARISON: 12/23/2018 FINDINGS: LUNGS: No active pulmonary disease. PLEURA: No significant pleural effusion identified, no pneumothorax apparent. CARDIOVASCULAR: Aortic calcification Normal cardiac size. No pulmonary vascular congestion. OSSEOUS STRUCTURES: No significant abnormalities. VISUALIZED UPPER ABDOMEN: Normal. OTHER FINDINGS: None. IMPRESSION: No active disease.
[2018-12-27 10:48] LABS: HEMOGLOBIN 8.1 g/dL (12.0-16.0); MEAN CELL VOLUME 93.7 fl (80.0-105.0); MEAN PLATELET VOLUME 10.5 fl (7.0-11.0); RBC 2.7 10^6/uL (3.5-6.1); RED CELL DISTRIBUTION WIDTH 15.1 % (11.5-14.5); WHITE BLOOD COUNT 6.7 10^3/uL (4.5-11.0)
[2018-12-27 10:58] LABS: CALCIUM 8.3 mg/dL (8.4-10.5)
[2018-12-27] MEDS: Ergocalciferol 50,000 Intl Units Cap PO SCH (12:02)
--- NOTE | 2018-12-27 13:23 | CP.PCM.PN ---
<Wally Morgan - Last Filed: 12/27/18 13:19> Subjective - Date & Time of Evaluation Date of Evaluation: 12/27/18 Time of Evaluation: 13:19 - Subjective Subjective: patient looks short of breath and fluid overloaded. Otherwise no complaints of fever, blood in stool, chest pain, abdominal pain. Objective - Vital Signs/Intake and Output Vital Signs (last 24 hours): Temp Pulse Resp BP Pulse Ox 98.3 F 72 18 154/63 H 97 12/27/18 08:19 12/27/18 11:59 12/27/18 08:19 12/27/18 12:47 12/27/18 08:19 Intake and Output: 12/27/18 12/27/18 06:59 18:59 Intake Total 440 Output Total 200 Balance 240 - Medications Medications: Current Medications Albuterol/Ipratropium (Duoneb 3 Mg/0.5 Mg (3 Ml) Ud) 3 ml IH Q6H TL Albuterol/Ipratropium (Duoneb 3 Mg/0.5 Mg (3 Ml) Ud) 3 ml IH Q2H PRN PRN Reason: Shortness of Breath Amlodipine Besylate (Norvasc) 10 mg PO DAILY [facility] Last Admin: 12/27/18 11:58 Dose: 10 mg Atorvastatin Calcium (Lipitor) 40 mg PO DAILY [facility] Last Admin: 12/27/18 11:58 Dose: 40 mg Carvedilol (Coreg) 12.5 mg PO BID [facility] Last Admin: 12/27/18 11:58 Dose: 12.5 mg Clonidine HCl (Catapres Tts1 0.1 Mg/24 Hr) 1 patch TD QWK [facility] Last Admin: 12/25/18 10:47 Dose: 1 patch Dextrose (Dextrose 50% Inj) 0 ml IV STAT PRN; Protocol PRN Reason: Hypoglycemia Protocol Ergocalciferol (Drisdol 50,000 Intl Units Cap) 1 cap PO Q7D [facility] Last Admin: 12/27/18 12:02 Dose: 1 cap Furosemide (Lasix) 40 mg IVP BID [facility] Last Admin: 12/27/18 09:54 Dose: Not Given Glimepiride (Amaryl) 1 mg PO DAILY [facility] Last Admin: 12/27/18 11:59 Dose: 1 mg Heparin Sodium (Porcine) (Heparin) 5,000 units SC Q12 [facility]; Protocol Last Admin: 12/27/18 09:49 Dose: 5,000 units Hydralazine HCl (Apresoline) 10 mg IVP Q6 PRN PRN Reason: Systolic Blood Pressure Last Admin: 12/27/18 06:48 Dose: 10 mg Hydralazine HCl (Apresoline) 50 mg PO QID [facility] Last Admin: 12/27/18 11:59 Dose: 50 mg Dextrose (Dextrose 5% In Water 1000 Ml) 1,000 mls @ 0 mls/hr IV .Q0M PRN; Protocol PRN Reason: Hypoglycemia Protocol Meropenem 250 mg/ Sodium (Chloride) 100 mls @ 100 mls/hr IVPB Q12 [facility]; Protocol Stop: 12/31/18 22:01 Last Admin: 12/27/18 12:47 Dose: 100 mls/hr Iron Sucrose 100 mg/ Sodium (Chloride) 105 mls @ 210 mls/hr IVPB DAILY [facility] Stop: 12/30/18 10:29 Last Admin: 12/26/18 23:20 Dose: 210 mls/hr Insulin Human Regular (Humulin R Low) 0 units SC ACHS [facility]; Protocol Last Admin: 12/27/18 11:36 Dose: Not Given Sevelamer HCl (Renagel) 800 mg PO WM [facility] Last Admin: 12/27/18 12:46 Dose: 800 mg Torsemide (Demadex) 10 mg PO DAILY [facility] Last Admin: 12/27/18 11:59 Dose: 10 mg - Labs Labs: 12/27/18 10:30 12/27/18 10:30 PT 13.4 SECONDS (9.4-12.5) H 12/23/18 10:56 INR 1.19 12/23/18 10:56 APTT 35.0 Seconds (26.9-38.3) 12/23/18 10:56 - Constitutional Appears: No Acute Distress, Chronically Ill - Head Exam Head Exam: ATRAUMATIC, NORMAL INSPECTION - Respiratory Exam Respiratory Exam: Clear to Ausculation Bilateral. absent: NORMAL BREATHING PATTERN - Cardiovascular Exam Cardiovascular Exam: REGULAR RHYTHM, +S1, +S2 - GI/Abdominal Exam GI & Abdominal Exam: Soft, Normal Bowel Sounds. absent: Tenderness - Extremities Exam Extremities Exam: Pedal Edema. absent: Normal Inspection - Psychiatric Exam Psychiatric exam: Normal Affect, Normal Mood - Skin Skin Exam: Normal Color, Warm Assessment and Plan - Assessment and Plan (Free Text) Assessment: 68 yo F with PMH of DM2, CKD stage IV (diabetic), HTN, anemia, fatty liver, UTI and obesity presents to [facility] for AMS 2/2 UTI. GI consulted for anemia and positive stool for occult blood. Abdomen/pelvis CT from prior admission 07/2018 reviewed, negative. 1. Anemia r/o GIB vs chronic disease 2. Toxic Metabolic Encephalopathy 2/2 UTI 3. JOSUE on CKD Plan: - Anemia could be multifactorial in setting of CKD and decreased Epo production vs GIB - Recommend endoscopy, could be done electively. Patient does not appear medically stable from cardiopulmonary status for endoscopic procedure at this time. I discussed with nursing staff. - Weekly Aranesp per nephro/hematology - IV abx per ID - For further recommendations, please see attestation. Patient discussed in detail with Dr. Narayan. <Megan Narayan V - Last Filed: 12/28/18 00:54> Objective - Vital Signs/Intake and Output Vital Signs (last 24 hours): Temp Pulse Resp BP Pulse Ox 98.2 F 68 19 164/50 H 99 12/27/18 16:56 12/27/18 22:42 12/27/18 16:56 12/27/18 22:42 12/27/18 16:56 Intake and Output: 12/27/18 12/28/18 18:59 06:59 Intake Total 200 Output Total 100 Balance 100 - Medications Medications: Current Medications Albuterol/Ipratropium (Duoneb 3 Mg/0.5 Mg (3 Ml) Ud) 3 ml IH Q6H [facility] Last Admin: 12/27/18 19:20 Dose: 3 ml Albuterol/Ipratropium (Duoneb 3 Mg/0.5 Mg (3 Ml) Ud) 3 ml IH Q2H PRN PRN Reason: Shortness of Breath Amlodipine Besylate (Norvasc) 10 mg PO DAILY [facility] Last Admin: 12/27/18 11:58 Dose: 10 mg Atorvastatin Calcium (Lipitor) 40 mg PO DAILY [facility] Last Admin: 12/27/18 11:58 Dose: 40 mg Carvedilol (Coreg) 12.5 mg PO BID [facility] Last Admin: 12/27/18 17:46 Dose: 12.5 mg Clonidine HCl (Catapres Tts1 0.1 Mg/24 Hr) 1 patch TD QWK [facility] Last Admin: 12/25/18 10:47 Dose: 1 patch Dextrose (Dextrose 50% Inj) 0 ml IV STAT PRN; Protocol PRN Reason: Hypoglycemia Protocol Ergocalciferol (Drisdol 50,000 Intl Units Cap) 1 cap PO Q7D [facility] Last Admin: 12/27/18 12:02 Dose: 1 cap Furosemide (Lasix) 40 mg IVP BID [facility] Last Admin: 12/27/18 17:45 Dose: 40 mg Glimepiride (Amaryl) 1 mg PO DAILY [facility] Last Admin: 12/27/18 11:59 Dose: 1 mg Heparin Sodium (Porcine) (Heparin) 5,000 units SC Q12 [facility]; Protocol Last Admin: 12/27/18 22:42 Dose: 5,000 units Hydralazine HCl (Apresoline) 10 mg IVP Q6 PRN PRN Reason: Systolic Blood Pressure Last Admin: 12/27/18 06:48 Dose: 10 mg Hydralazine HCl (Apresoline) 50 mg PO QID [facility] Last Admin: 12/27/18 22:42 Dose: 50 mg Dextrose (Dextrose 5% In Water 1000 Ml) 1,000 mls @ 0 mls/hr IV .Q0M PRN; Protocol PRN Reason: Hypoglycemia Protocol Meropenem 250 mg/ Sodium (Chloride) 100 mls @ 100 mls/hr IVPB Q12 [facility]; Protocol Stop: 12/31/18 22:01 Last Admin: 12/27/18 23:42 Dose: Not Given Iron Sucrose 100 mg/ Sodium (Chloride) 105 mls @ 210 mls/hr IVPB DAILY [facility] Stop: 12/30/18 10:29 Last Admin: 12/27/18 13:49 Dose: 210 mls/hr Insulin Human Regular (Humulin R Low) 0 units SC ACHS [facility]; Protocol Last Admin: 12/27/18 16:55 Dose: Not Given Sevelamer HCl (Renagel) 800 mg PO WM [facility] Last Admin: 12/27/18 17:46 Dose: 800 mg Torsemide (Demadex) 10 mg PO DAILY [facility] Last Admin: 12/27/18 11:59 Dose: 10 mg - Labs Labs: 12/27/18 10:30 12/27/18 10:30 PT 13.4 SECONDS (9.4-12.5) H 12/23/18 10:56 INR 1.19 12/23/18 10:56 APTT 35.0 Seconds (26.9-38.3) 12/23/18 10:56 Attending/Attestation - Attestation I have personally seen and examined this patient.: Yes I have fully participated in the care of the patient.: Yes I have reviewed all pertinent clinical information, including history, physical exam and plan: Yes
[2018-12-27] MEDS: Albuterol-Ipratrop 3 mg / 0.5 (3 ml) UD IH SCH ×2 (14:28→19:20)
--- NOTE | 2018-12-27 21:49 | CP.PCM.PN ---
<Judson Curry - Last Filed: 12/27/18 21:45> Subjective - Date & Time of Evaluation Date of Evaluation: 12/27/18 Time of Evaluation: 12:00 - Subjective Subjective: INTERNAL MEDICINE PROGRESS NOTE FOR DR. MEKA Curry PGY1 Pt seen and examined at bedside this am. No acute events overnight. Pt denies complaints Objective - Vital Signs/Intake and Output Vital Signs (last 24 hours): Temp Pulse Resp BP Pulse Ox 98.2 F 72 19 152/66 H 99 12/27/18 16:56 12/27/18 17:46 12/27/18 16:56 12/27/18 17:46 12/27/18 16:56 Intake and Output: 12/27/18 12/28/18 18:59 06:59 Intake Total 200 Output Total 100 Balance 100 - Medications Medications: Current Medications Albuterol/Ipratropium (Duoneb 3 Mg/0.5 Mg (3 Ml) Ud) 3 ml IH Q6H [facility] Last Admin: 12/27/18 19:20 Dose: 3 ml Albuterol/Ipratropium (Duoneb 3 Mg/0.5 Mg (3 Ml) Ud) 3 ml IH Q2H PRN PRN Reason: Shortness of Breath Amlodipine Besylate (Norvasc) 10 mg PO DAILY [facility] Last Admin: 12/27/18 11:58 Dose: 10 mg Atorvastatin Calcium (Lipitor) 40 mg PO DAILY [facility] Last Admin: 12/27/18 11:58 Dose: 40 mg Carvedilol (Coreg) 12.5 mg PO BID [facility] Last Admin: 12/27/18 17:46 Dose: 12.5 mg Clonidine HCl (Catapres Tts1 0.1 Mg/24 Hr) 1 patch TD QWK [facility] Last Admin: 12/25/18 10:47 Dose: 1 patch Dextrose (Dextrose 50% Inj) 0 ml IV STAT PRN; Protocol PRN Reason: Hypoglycemia Protocol Ergocalciferol (Drisdol 50,000 Intl Units Cap) 1 cap PO Q7D [facility] Last Admin: 12/27/18 12:02 Dose: 1 cap Furosemide (Lasix) 40 mg IVP BID [facility] Last Admin: 12/27/18 17:45 Dose: 40 mg Glimepiride (Amaryl) 1 mg PO DAILY [facility] Last Admin: 12/27/18 11:59 Dose: 1 mg Heparin Sodium (Porcine) (Heparin) 5,000 units SC Q12 TL; Protocol Last Admin: 12/27/18 09:49 Dose: 5,000 units Hydralazine HCl (Apresoline) 10 mg IVP Q6 PRN PRN Reason: Systolic Blood Pressure Last Admin: 12/27/18 06:48 Dose: 10 mg Hydralazine HCl (Apresoline) 50 mg PO QID [facility] Last Admin: 12/27/18 17:46 Dose: 50 mg Dextrose (Dextrose 5% In Water 1000 Ml) 1,000 mls @ 0 mls/hr IV .Q0M PRN; Protocol PRN Reason: Hypoglycemia Protocol Meropenem 250 mg/ Sodium (Chloride) 100 mls @ 100 mls/hr IVPB Q12 [facility]; Protocol Stop: 12/31/18 22:01 Last Admin: 12/27/18 12:47 Dose: 100 mls/hr Iron Sucrose 100 mg/ Sodium (Chloride) 105 mls @ 210 mls/hr IVPB DAILY [facility] Stop: 12/30/18 10:29 Last Admin: 12/27/18 13:49 Dose: 210 mls/hr Insulin Human Regular (Humulin R Low) 0 units SC ACHS TL; Protocol Last Admin: 12/27/18 16:55 Dose: Not Given Sevelamer HCl (Renagel) 800 mg PO WM [facility] Last Admin: 12/27/18 17:46 Dose: 800 mg Torsemide (Demadex) 10 mg PO DAILY [facility] Last Admin: 12/27/18 11:59 Dose: 10 mg - Labs Labs: 12/27/18 10:30 12/27/18 10:30 PT 13.4 SECONDS (9.4-12.5) H 12/23/18 10:56 INR 1.19 12/23/18 10:56 APTT 35.0 Seconds (26.9-38.3) 12/23/18 10:56 - Additional Findings Additional findings: - Additional Findings Additional findings: - Constitutional Appears: Well, Non-toxic, No Acute Distress, Chronically Ill - Head Exam Head Exam: NORMAL INSPECTION, NORMOCEPHALIC - Eye Exam Eye Exam: EOMI, Normal appearance - ENT Exam ENT Exam: Mucous Membranes Moist, Normal Exam - Neck Exam Neck exam: Positive for: Normal Inspection. Negative for: Meningismus - Respiratory Exam Respiratory Exam: Clear to Auscultation Bilateral, NORMAL BREATHING PATTERN - Cardiovascular Exam Cardiovascular Exam: REGULAR RHYTHM, +S1, +S2 - GI/Abdominal Exam GI & Abdominal Exam: Soft. absent: Distended, Guarding Additional comments: appendectomy & cholecystectomy scars noted. C/D/I - Extremities Exam Extremities exam: Positive for: pedal edema. Negative for: calf tenderness - Back Exam Back exam: NORMAL INSPECTION - Neurological Exam Neurological exam: Alert Additional comments: - Psychiatric Exam Psychiatric exam: Normal Affect - Skin Skin Exam: Dry, Intact, Warm Assessment and Plan - Assessment and Plan (Free Text) Assessment: 68 y/o eritrean speaking F with PMHx of CKD, DM2, HTN, HLD, anemia presents to ED for change mental status, lethargy and weakness in the setting of UTI and symptomatic anemia Plan: UTI Leukocytosis resolving. U/A revealing (+) nitrate. Urine cultures growing E. Coli, B-hemolytic group B strep Pt has history of ESBL and E. Coli resistant to multiple organisms. On contact isolation Continue IV meropenem. 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 eGFR. Biopsy results received, revealing diabetic nephropathy vein mapping completed. surgery consulted for outpatient fistula formation continue home renvela Strict I&Os Nephro following. appreciate recs Normocytic Anemia MCV 92.5. Likely ACD in the setting of CKD (+) FOBT. GI following, recommending outpatient endoscopic w/u s/p 1u pRBC. Hgb responded to 8.1 continue weekly darbepoetin infusions. recs per nephro/hematology Heme-onc following, appreciate recs DM2 Continue home glimepiride Insulin SS Accuchecks ACHS Hypertension Continue home amlodipine, carvedilol, clonidine, hydralazine DVT/GI PPx: Hep SC Case seen, examined and discussed with attending physician, Dr. Meka Curry PGY1 <Geovanni Evangelista - Last Filed: 12/28/18 14:16> Objective - Vital Signs/Intake and Output Vital Signs (last 24 hours): Temp Pulse Resp BP Pulse Ox 97.9 F 75 20 133/48 L 95 12/28/18 07:52 12/28/18 07:52 12/28/18 07:52 12/28/18 11:10 12/28/18 07:52 Intake and Output: 12/28/18 12/28/18 06:59 18:59 Intake Total 120 Output Total 1100 Balance -980 - Medications Medications: Current Medications Albuterol/Ipratropium (Duoneb 3 Mg/0.5 Mg (3 Ml) Ud) 3 ml IH Q6H [facility] Last Admin: 12/28/18 13:55 Dose: 3 ml Albuterol/Ipratropium (Duoneb 3 Mg/0.5 Mg (3 Ml) Ud) 3 ml IH Q2H PRN PRN Reason: Shortness of Breath Amlodipine Besylate (Norvasc) 10 mg PO DAILY [facility] Last Admin: 12/28/18 11:10 Dose: 10 mg Atorvastatin Calcium (Lipitor) 40 mg PO DAILY [facility] Last Admin: 12/28/18 11:09 Dose: 40 mg Carvedilol (Coreg) 12.5 mg PO BID [facility] Last Admin: 12/28/18 11:11 Dose: 12.5 mg Clonidine HCl (Catapres Tts1 0.1 Mg/24 Hr) 1 patch TD QWK [facility] Last Admin: 12/25/18 10:47 Dose: 1 patch Dextrose (Dextrose 50% Inj) 0 ml IV STAT PRN; Protocol PRN Reason: Hypoglycemia Protocol Ergocalciferol (Drisdol 50,000 Intl Units Cap) 1 cap PO Q7D [facility] Last Admin: 12/27/18 12:02 Dose: 1 cap Furosemide (Lasix) 80 mg PO BID [facility] Last Admin: 12/28/18 11:10 Dose: 80 mg Glimepiride (Amaryl) 1 mg PO DAILY [facility] Last Admin: 12/28/18 11:11 Dose: 1 mg Heparin Sodium (Porcine) (Heparin) 5,000 units SC Q12 [facility]; Protocol Last Admin: 12/28/18 11:11 Dose: 5,000 units Hydralazine HCl (Apresoline) 10 mg IVP Q6 PRN PRN Reason: Systolic Blood Pressure Last Admin: 12/27/18 06:48 Dose: 10 mg Hydralazine HCl (Apresoline) 50 mg PO QID [facility] Last Admin: 12/28/18 11:12 Dose: Not Given Dextrose (Dextrose 5% In Water 1000 Ml) 1,000 mls @ 0 mls/hr IV .Q0M PRN; Protocol PRN Reason: Hypoglycemia Protocol Meropenem 250 mg/ Sodium (Chloride) 100 mls @ 100 mls/hr IVPB Q12 TL; Protocol Stop: 12/31/18 22:01 Last Admin: 12/28/18 11:17 Dose: Not Given Iron Sucrose 100 mg/ Sodium (Chloride) 105 mls @ 210 mls/hr IVPB DAILY TL Stop: 12/30/18 10:29 Last Admin: 12/28/18 11:15 Dose: Not Given Insulin Human Regular (Humulin R Low) 0 units SC ACHS [facility]; Protocol Last Admin: 12/28/18 11:12 Dose: Not Given Pantoprazole Sodium (Protonix Ec Tab) 40 mg PO 0600 [facility] Prednisone (Prednisone Tab) 10 mg PO DAILY [facility] Last Admin: 12/28/18 11:17 Dose: 10 mg Sevelamer HCl (Renagel) 800 mg PO WM [facility] Last Admin: 12/28/18 11:28 Dose: 800 mg Torsemide (Demadex) 10 mg PO DAILY [facility] Last Admin: 12/28/18 11:28 Dose: 10 mg - Labs Labs: 12/27/18 10:30 12/27/18 10:30 PT 13.4 SECONDS (9.4-12.5) H 12/23/18 10:56 INR 1.19 12/23/18 10:56 APTT 35.0 Seconds (26.9-38.3) 12/23/18 10:56 Attending/Attestation - Attestation I have personally seen and examined this patient.: Yes I have fully participated in the care of the patient.: Yes I have reviewed all pertinent clinical information, including history, physical exam and plan: Yes Notes (Text): 12/28/18 14:12 attending note; Patient seen and examined resident. patient is more alert and awake. Complaining of mild shortness of breath. On oxygen nasal cannula. Saturating at 98. Complaining of cough. Patient is a 68 year old eritrean speaking Female with PMHx of CKD, DM2, HTN, HLD, anemia presents to ED with daughter at bedside. Patient was brought in by daughter because of change in mental status, lethargy and weakness since this am. Daughter reports she had visited her this am when she noticed the change in mental status and lethargy. 1. Altered mental status/lethargy; resolved. toxic metabolic encephalopathy. secondary to ESBL UIT. on Merem. ID evaluation appreciated. CT head negative for acute CVA. MRI of the head is negative. Neurology evaluation appreciated. 2. Chronic kidney disease; creatinine is 3.0. Nephrology evaluation appreciated. continue torsemide. patient had recent biopsy at [facility]. Patient had advanced diabetic nephropathy. vein mapping done. Surgery evaluation appreciated. Outpatient AV fistula placement recommended. 3. Anemia; hemoglobin is 7.8. s/p1 unit PRBC transfusion. continue iron. Stool guaiac is positive. GI evaluation appreciated. Needs EGD and colonoscopy as outpatient. 4. uncontrolled hypertension; continue Coreg, torsemide and norvasc. on clonidine patch. Started on hydralazine. 5. diabetes; continue regular insulin sliding scale and amaryl. 6. lower extremity edema; lower extremity Doppler is negative. 7. Volume overload; patient has mild shortness of breath. Chest x-ray showed no effusions and pneumonia or vascular congestion. Patient is on IV Lasix. Respiratory status improved after Lasix. PT evaluation appreciated. upon discharge the patient will follow-up with PMD .
--- NOTE | 2018-12-27 23:24 | PN ---
DATE: 12/27/2018 SUBJECTIVE: The patient is in bed, in no acute distress, nontoxic. PHYSICAL EXAMINATION: VITAL SIGNS: Temperature is 98, blood pressure is 160/40, respiratory rate of 18. HEENT: Unremarkable. NECK: Supple. LUNGS: Decreased breath sounds. HEART: Normal S1 and S2. ABDOMEN: Soft. Nontender. LABORATORY DATA: Reveals a white count of 6.7, hemoglobin of 8, platelets of 241. Chemistries reveals a BUN of 50, creatinine of 3. The BNP is 2770. Urinalysis is noted. Urine culture is E. coli and group B strep. Blood cultures, no growth. Review of orders reveals the patient to be on meropenem. ASSESSMENT AND PLAN: A 68-year-old female who was seen earlier today in room 362 with systemic inflammatory response syndrome and sepsis secondary to urinary tract infection, group B strep and extended-spectrum beta-lactamase E. coli in a patient with history of right pyelonephritis with extended-spectrum beta-lactamase and history of zoster, history of methicillin-resistant Staphylococcus aureus, enterococcal bacteremia, history of hypertension and diabetes. Currently on renal-adjusted meropenem day #4 with complete 7-10 days. Review of orders reveals the patient's meropenem is active. We will follow with you. Nicolas Martin MD
--- NOTE | 2018-12-28 00:21 | PN ---
DATE: 12/27/2018 SUBJECTIVE: The patient has no complaints. PHYSICAL EXAMINATION: VITAL SIGNS: Temperature is 98.2, pulse is 72, blood pressure is 152/66, respirations 19. GENERAL: The patient is lying in bed, flat, comfortable. HEENT: No oral lesion. Anicteric sclerae. Moist mucosa. NECK: No JVD, adenopathy, or thyromegaly. CARDIOVASCULAR: S1 and S2, regular. No murmurs, rubs, or gallops. LUNGS: Clear to auscultation bilaterally. No wheeze, rales, or rhonchi. ABDOMEN: Bowel sounds are positive, soft, nontender and nondistended. EXTREMITIES: no cyanosis, clubbing or edema. LABS: White count is 6.7, hemoglobin 8.1, creatinine is 3. ASSESSMENT: 1. Acute kidney injury on chronic kidney disease, stage 4. 2. Diabetic nephropathy. 3. Diabetes type 2. 4. Hypertension. 5. Anemia of chronic disease. 6. Secondary hyperparathyroidism. PLAN: The patient is currently on Amaryl for her diabetes. She is receiving clonidine for her blood pressure. She is going to continue with Coreg. She is on torsemide for diuresis. She is going to continue with heparin for DVT prophylaxis. She is receiving iron because of iron deficiency. She is on Lipitor for dyslipidemia. The patient is receiving sevelamer for her secondary hyperparathyroidism. The patient's hemoglobin is stable at 8.1. She has a creatinine that remains stable at 3 for the last few days. This is coverage for Dr. Santiago. She also has immunofixation and protein electrophoresis that is pending. Kash Yanez MD
[2018-12-28] MEDS: Albuterol-Ipratrop 3 mg / 0.5 (3 ml) UD IH SCH ×4 (01:45→19:22)
[2018-12-28] MEDS: Insulin Reg-LOW-Coverage SC SCH ×4 (11:12→21:46)
--- NOTE | 2018-12-28 12:15 | PN ---
DATE: 12/28/2018 SUBJECTIVE: The patient has no complaints of any chest pain or shortness of breath. OBJECTIVE: VITAL SIGNS: Temperature is 97.9, pulse of 75, blood pressure 133/48, respirations 20. GENERAL: The patient is lying in bed, flat, comfortable. HEENT: No oral lesion. Anicteric sclerae. Moist mucosa. NECK: No JVD, adenopathy, or thyromegaly. CARDIOVASCULAR: S1 and S2, regular. No murmurs, rubs, or gallops. LUNGS: Clear to auscultation bilaterally. No wheeze, rales, or rhonchi. ABDOMEN: Bowel sounds are positive, soft, nontender and nondistended. EXTREMITIES: no cyanosis, clubbing or edema. LABORATORY DATA: White count of 6.1, hemoglobin 8.1. Creatinine is 3.0. ASSESSMENT: 1. Acute kidney injury with chronic kidney disease stage IV. 2. Diabetic nephropathy. 3. Diabetes type 2. 4. Hypertension. 5. Anemia of chronic disease. 6. Secondary hyperparathyroidism. PLAN: The patient is currently on hydralazine, going to continue clonidine for hypertension, is on torsemide. The patient is on vitamin D replacement. She is on heparin for DVT prophylaxis. She is getting IV iron for iron deficiency. She is on Lasix twice a day. She is receiving Lipitor for dyslipidemia. She is receiving antibiotics with meropenem. She is on sevelamer for her secondary hyperparathyroidism. This is coverage for Dr. Santiago from Nephrology. Kash Yanez MD
--- NOTE | 2018-12-28 12:49 | CP.PCM.PN ---
<Judson Curry - Last Filed: 12/28/18 13:28> Subjective - Date & Time of Evaluation Date of Evaluation: 12/28/18 Time of Evaluation: 12:46 - Subjective Subjective: INTERNAL MEDICINE PROGRESS NOTE FOR DR. MEKA Curry PGY1 Pt seen and examined at bedside this am. Pt lost IV access yesterday, mid-line was lost d/t poor access. Pt denies complaints. Objective - Vital Signs/Intake and Output Vital Signs (last 24 hours): Temp Pulse Resp BP Pulse Ox 97.9 F 75 20 133/48 L 95 12/28/18 07:52 12/28/18 07:52 12/28/18 07:52 12/28/18 11:10 12/28/18 07:52 Intake and Output: 12/28/18 12/28/18 06:59 18:59 Intake Total 120 Output Total 1100 Balance -980 - Medications Medications: Current Medications Albuterol/Ipratropium (Duoneb 3 Mg/0.5 Mg (3 Ml) Ud) 3 ml IH Q6H [facility] Last Admin: 12/28/18 07:42 Dose: 3 ml Albuterol/Ipratropium (Duoneb 3 Mg/0.5 Mg (3 Ml) Ud) 3 ml IH Q2H PRN PRN Reason: Shortness of Breath Amlodipine Besylate (Norvasc) 10 mg PO DAILY [facility] Last Admin: 12/28/18 11:10 Dose: 10 mg Atorvastatin Calcium (Lipitor) 40 mg PO DAILY [facility] Last Admin: 12/28/18 11:09 Dose: 40 mg Carvedilol (Coreg) 12.5 mg PO BID [facility] Last Admin: 12/28/18 11:11 Dose: 12.5 mg Clonidine HCl (Catapres Tts1 0.1 Mg/24 Hr) 1 patch TD QWK [facility] Last Admin: 12/25/18 10:47 Dose: 1 patch Dextrose (Dextrose 50% Inj) 0 ml IV STAT PRN; Protocol PRN Reason: Hypoglycemia Protocol Ergocalciferol (Drisdol 50,000 Intl Units Cap) 1 cap PO Q7D [facility] Last Admin: 12/27/18 12:02 Dose: 1 cap Furosemide (Lasix) 80 mg PO BID [facility] Last Admin: 12/28/18 11:10 Dose: 80 mg Glimepiride (Amaryl) 1 mg PO DAILY [facility] Last Admin: 12/28/18 11:11 Dose: 1 mg Heparin Sodium (Porcine) (Heparin) 5,000 units SC Q12 [facility]; Protocol Last Admin: 12/28/18 11:11 Dose: 5,000 units Hydralazine HCl (Apresoline) 10 mg IVP Q6 PRN PRN Reason: Systolic Blood Pressure Last Admin: 12/27/18 06:48 Dose: 10 mg Hydralazine HCl (Apresoline) 50 mg PO QID [facility] Last Admin: 12/28/18 11:12 Dose: Not Given Dextrose (Dextrose 5% In Water 1000 Ml) 1,000 mls @ 0 mls/hr IV .Q0M PRN; Protocol PRN Reason: Hypoglycemia Protocol Meropenem 250 mg/ Sodium (Chloride) 100 mls @ 100 mls/hr IVPB Q12 [facility]; Protocol Stop: 12/31/18 22:01 Last Admin: 12/28/18 11:17 Dose: Not Given Iron Sucrose 100 mg/ Sodium (Chloride) 105 mls @ 210 mls/hr IVPB DAILY [facility] Stop: 12/30/18 10:29 Last Admin: 12/28/18 11:15 Dose: Not Given Insulin Human Regular (Humulin R Low) 0 units SC ACHS [facility]; Protocol Last Admin: 12/28/18 11:12 Dose: Not Given Prednisone (Prednisone Tab) 10 mg PO DAILY [facility] Last Admin: 12/28/18 11:17 Dose: 10 mg Sevelamer HCl (Renagel) 800 mg PO WM [facility] Last Admin: 12/28/18 11:28 Dose: 800 mg Torsemide (Demadex) 10 mg PO DAILY [facility] Last Admin: 12/28/18 11:28 Dose: 10 mg - Labs Labs: 12/27/18 10:30 12/27/18 10:30 PT 13.4 SECONDS (9.4-12.5) H 12/23/18 10:56 INR 1.19 12/23/18 10:56 APTT 35.0 Seconds (26.9-38.3) 12/23/18 10:56 - Constitutional Appears: Well, Non-toxic, No Acute Distress, Chronically Ill - Head Exam Head Exam: NORMAL INSPECTION, NORMOCEPHALIC - Eye Exam Eye Exam: EOMI, Normal appearance - ENT Exam ENT Exam: Mucous Membranes Moist, Normal Exam - Neck Exam Neck exam: Positive for: Normal Inspection. Negative for: Meningismus - Respiratory Exam Respiratory Exam: Clear to Auscultation Bilateral, NORMAL BREATHING PATTERN - Cardiovascular Exam Cardiovascular Exam: REGULAR RHYTHM, +S1, +S2 - GI/Abdominal Exam GI & Abdominal Exam: Soft. absent: Distended, Guarding Additional comments: appendectomy & cholecystectomy scars noted. C/D/I - Extremities Exam Extremities exam: Positive for: pedal edema. Negative for: calf tenderness - Back Exam Back exam: NORMAL INSPECTION - Neurological Exam Neurological exam: Alert Additional comments: - Psychiatric Exam Psychiatric exam: Normal Affect - Skin Skin Exam: Dry, Intact, Warm Assessment and Plan - Assessment and Plan (Free Text) Assessment: 68 y/o mosotho speaking F with PMHx of CKD, DM2, HTN, HLD, anemia presents to ED for change mental status, lethargy and weakness in the setting of UTI and sy mptomatic anemia Plan: UTI Leukocytosis resolving. U/A revealing (+) nitrate. Urine cultures growing E. Coli, B-hemolytic group B strep Pt has history of ESBL and E. Coli resistant to multiple organisms. 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 eGFR. Biopsy results received, revealing diabetic nephropathy vein mapping completed. surgery consulted for outpatient fistula formation continue home renvela continue ergocalciferol Strict I&Os Nephro following. appreciate recs Normocytic Anemia continue iron infusions Likely ACD in the setting of CKD (+) FOBT. GI following, recommending outpatient endoscopic w/u recs per nephro/hematology Heme-onc following, appreciate recs DM2 Continue home glimepiride Insulin SS Accuchecks ACHS Hypertension Continue home amlodipine, carvedilol, clonidine, hydralazine po qid Hyperlipidemia continue atorvastatin DVT/GI PPx: Hep SC/protonix Case seen, examined and discussed with attending physician, Dr. Meka Curry PGY1 <Geovanni Evangelista - Last Filed: 12/28/18 14:19> Objective - Vital Signs/Intake and Output Vital Signs (last 24 hours): Temp Pulse Resp BP Pulse Ox 97.9 F 75 20 133/48 L 95 12/28/18 07:52 12/28/18 07:52 12/28/18 07:52 12/28/18 11:10 12/28/18 07:52 Intake and Output: 12/28/18 12/28/18 06:59 18:59 Intake Total 120 Output Total 1100 Balance -980 - Medications Medications: Current Medications Albuterol/Ipratropium (Duoneb 3 Mg/0.5 Mg (3 Ml) Ud) 3 ml IH Q6H [facility] Last Admin: 12/28/18 13:55 Dose: 3 ml Albuterol/Ipratropium (Duoneb 3 Mg/0.5 Mg (3 Ml) Ud) 3 ml IH Q2H PRN PRN Reason: Shortness of Breath Amlodipine Besylate (Norvasc) 10 mg PO DAILY [facility] Last Admin: 12/28/18 11:10 Dose: 10 mg Atorvastatin Calcium (Lipitor) 40 mg PO DAILY [facility] Last Admin: 12/28/18 11:09 Dose: 40 mg Carvedilol (Coreg) 12.5 mg PO BID [facility] Last Admin: 12/28/18 11:11 Dose: 12.5 mg Clonidine HCl (Catapres Tts1 0.1 Mg/24 Hr) 1 patch TD QWK [facility] Last Admin: 12/25/18 10:47 Dose: 1 patch Dextrose (Dextrose 50% Inj) 0 ml IV STAT PRN; Protocol PRN Reason: Hypoglycemia Protocol Ergocalciferol (Drisdol 50,000 Intl Units Cap) 1 cap PO Q7D [facility] Last Admin: 12/27/18 12:02 Dose: 1 cap Furosemide (Lasix) 80 mg PO BID [facility] Last Admin: 12/28/18 11:10 Dose: 80 mg Glimepiride (Amaryl) 1 mg PO DAILY [facility] Last Admin: 12/28/18 11:11 Dose: 1 mg Heparin Sodium (Porcine) (Heparin) 5,000 units SC Q12 [facility]; Protocol Last Admin: 12/28/18 11:11 Dose: 5,000 units Hydralazine HCl (Apresoline) 10 mg IVP Q6 PRN PRN Reason: Systolic Blood Pressure Last Admin: 12/27/18 06:48 Dose: 10 mg Hydralazine HCl (Apresoline) 50 mg PO QID [facility] Last Admin: 12/28/18 11:12 Dose: Not Given Dextrose (Dextrose 5% In Water 1000 Ml) 1,000 mls @ 0 mls/hr IV .Q0M PRN; Protocol PRN Reason: Hypoglycemia Protocol Meropenem 250 mg/ Sodium (Chloride) 100 mls @ 100 mls/hr IVPB Q12 [facility]; Protocol Stop: 12/31/18 22:01 Last Admin: 12/28/18 11:17 Dose: Not Given Iron Sucrose 100 mg/ Sodium (Chloride) 105 mls @ 210 mls/hr IVPB DAILY [facility] Stop: 12/30/18 10:29 Last Admin: 12/28/18 11:15 Dose: Not Given Insulin Human Regular (Humulin R Low) 0 units SC ACHS [facility]; Protocol Last Admin: 12/28/18 14:12 Dose: Not Given Pantoprazole Sodium (Protonix Ec Tab) 40 mg PO 0600 [facility] Prednisone (Prednisone Tab) 10 mg PO DAILY [facility] Last Admin: 12/28/18 11:17 Dose: 10 mg Sevelamer HCl (Renagel) 800 mg PO WM [facility] Last Admin: 12/28/18 11:28 Dose: 800 mg Torsemide (Demadex) 10 mg PO DAILY [facility] Last Admin: 12/28/18 11:28 Dose: 10 mg - Labs Labs: 12/27/18 10:30 12/27/18 10:30 PT 13.4 SECONDS (9.4-12.5) H 12/23/18 10:56 INR 1.19 12/23/18 10:56 APTT 35.0 Seconds (26.9-38.3) 12/23/18 10:56 Attending/Attestation - Attestation I have personally seen and examined this patient.: Yes I have fully participated in the care of the patient.: Yes I have reviewed all pertinent clinical information, including history, physical exam and plan: Yes Notes (Text): 12/28/18 14:17 attending note; Patient seen and examined resident. patient is more alert and awake. mild shortness of breath. On oxygen nasal cannula. Lost IV access yesterday. Patient is a 68 year old mosotho speaking Female with PMHx of CKD, DM2, HTN, HLD, anemia presents to ED with daughter at bedside. Patient was brought in by daughter because of change in mental status, lethargy and weakness since this am. Daughter reports she had visited her this am when she noticed the change in mental status and lethargy. 1. Altered mental status/lethargy; resolved. toxic metabolic encephalopathy. secondary to ESBL UIT. on Merem. ID evaluation appreciated. CT head negative for acute CVA. MRI of the head is negative. Neurology evaluation appreciated. 2. Chronic kidney disease; creatinine is 3.0. Nephrology evaluation appreciated. continue torsemide. patient had recent biopsy at [facility]. Patient had advanced diabetic nephropathy. vein mapping done. Surgery evaluation appreciated. Outpatient AV fistula placement recommended. 3. Anemia; hemoglobin is 7.8. s/p1 unit PRBC transfusion. continue iron. Stool guaiac is positive. GI evaluation appreciated. Needs EGD and colonoscopy as outpatient. 4. uncontrolled hypertension; continue Coreg, torsemide and norvasc. on clonidine patch. Started on hydralazine. 5. diabetes; continue regular insulin sliding scale and amaryl. 6. lower extremity edema; lower extremity Doppler is negative. 7. Volume overload; patient has mild shortness of breath. Chest x-ray showed no effusions and pneumonia or vascular congestion. Patient is on IV Lasix. Respiratory status improved after Lasix. 8. lost peripheral IV access; tried by midline team yesterday. Unsuccessful. We will get the IR for midline placement tomorrow. Case discussed with ID in detail. Patient needs to complete 7-10 days of IV meropenem. Will discuss with case reviewer tomorrow for discharge planning. upon discharge the patient will follow-up with PMD .
--- NOTE | 2018-12-28 14:40 | CP.PCM.PN ---
Subjective - Date & Time of Evaluation Date of Evaluation: 12/28/18 Time of Evaluation: 14:37 - Subjective Subjective: Patient is doing much better today, denies SOB. Tolerating diet. No complaints. Making good urine output. Objective - Vital Signs/Intake and Output Vital Signs (last 24 hours): Temp Pulse Resp BP Pulse Ox 97.9 F 75 20 133/48 L 95 12/28/18 07:52 12/28/18 07:52 12/28/18 07:52 12/28/18 11:10 12/28/18 07:52 Intake and Output: 12/28/18 12/28/18 06:59 18:59 Intake Total 120 Output Total 1100 Balance -980 - Medications Medications: Current Medications Albuterol/Ipratropium (Duoneb 3 Mg/0.5 Mg (3 Ml) Ud) 3 ml IH Q6H [facility] Last Admin: 12/28/18 13:55 Dose: 3 ml Albuterol/Ipratropium (Duoneb 3 Mg/0.5 Mg (3 Ml) Ud) 3 ml IH Q2H PRN PRN Reason: Shortness of Breath Amlodipine Besylate (Norvasc) 10 mg PO DAILY [facility] Last Admin: 12/28/18 11:10 Dose: 10 mg Atorvastatin Calcium (Lipitor) 40 mg PO DAILY [facility] Last Admin: 12/28/18 11:09 Dose: 40 mg Carvedilol (Coreg) 12.5 mg PO BID [facility] Last Admin: 12/28/18 11:11 Dose: 12.5 mg Clonidine HCl (Catapres Tts1 0.1 Mg/24 Hr) 1 patch TD QWK [facility] Last Admin: 12/25/18 10:47 Dose: 1 patch Dextrose (Dextrose 50% Inj) 0 ml IV STAT PRN; Protocol PRN Reason: Hypoglycemia Protocol Ergocalciferol (Drisdol 50,000 Intl Units Cap) 1 cap PO Q7D [facility] Last Admin: 12/27/18 12:02 Dose: 1 cap Furosemide (Lasix) 80 mg PO BID [facility] Last Admin: 12/28/18 11:10 Dose: 80 mg Glimepiride (Amaryl) 1 mg PO DAILY [facility] Last Admin: 12/28/18 11:11 Dose: 1 mg Heparin Sodium (Porcine) (Heparin) 5,000 units SC Q12 [facility]; Protocol Last Admin: 12/28/18 11:11 Dose: 5,000 units Hydralazine HCl (Apresoline) 10 mg IVP Q6 PRN PRN Reason: Systolic Blood Pressure Last Admin: 12/27/18 06:48 Dose: 10 mg Hydralazine HCl (Apresoline) 50 mg PO QID [facility] Last Admin: 12/28/18 11:12 Dose: Not Given Dextrose (Dextrose 5% In Water 1000 Ml) 1,000 mls @ 0 mls/hr IV .Q0M PRN; Protocol PRN Reason: Hypoglycemia Protocol Meropenem 250 mg/ Sodium (Chloride) 100 mls @ 100 mls/hr IVPB Q12 [facility]; Protocol Stop: 12/31/18 22:01 Last Admin: 12/28/18 11:17 Dose: Not Given Iron Sucrose 100 mg/ Sodium (Chloride) 105 mls @ 210 mls/hr IVPB DAILY [facility] Stop: 12/30/18 10:29 Last Admin: 12/28/18 11:15 Dose: Not Given Insulin Human Regular (Humulin R Low) 0 units SC ACHS [facility]; Protocol Last Admin: 12/28/18 14:12 Dose: Not Given Pantoprazole Sodium (Protonix Ec Tab) 40 mg PO 0600 [facility] Prednisone (Prednisone Tab) 10 mg PO DAILY [facility] Last Admin: 12/28/18 11:17 Dose: 10 mg Sevelamer HCl (Renagel) 800 mg PO WM [facility] Last Admin: 12/28/18 11:28 Dose: 800 mg Torsemide (Demadex) 10 mg PO DAILY [facility] Last Admin: 12/28/18 11:28 Dose: 10 mg - Labs Labs: 12/27/18 10:30 12/27/18 10:30 PT 13.4 SECONDS (9.4-12.5) H 12/23/18 10:56 INR 1.19 12/23/18 10:56 APTT 35.0 Seconds (26.9-38.3) 12/23/18 10:56 - Constitutional Appears: Non-toxic, No Acute Distress - Head Exam Head Exam: ATRAUMATIC, NORMAL INSPECTION - Eye Exam Eye Exam: EOMI, Normal appearance - Respiratory Exam Respiratory Exam: Clear to Ausculation Bilateral, NORMAL BREATHING PATTERN - Cardiovascular Exam Cardiovascular Exam: REGULAR RHYTHM, +S1, +S2 - Neurological Exam Neurological Exam: Alert, Awake, Oriented x3 - Psychiatric Exam Psychiatric exam: Normal Affect, Normal Mood - Skin Skin Exam: Normal Color, Warm Assessment and Plan - Assessment and Plan (Free Text) Assessment: 68 yo F with PMH of DM2, CKD stage IV (diabetic), HTN, anemia, fatty liver, UTI and obesity presents to [facility] for AMS 2/2 UTI. GI consulted for anemia and positive stool for occult blood. Abdomen/pelvis CT from prior admission 07/2018 reviewed, negative. 1. Anemia r/o GIB vs chronic disease 2. Toxic Metabolic Encephalopathy 2/2 UTI 3. JOSUE on CKD Plan: - Anemia could be multifactorial in setting of CKD and decreased Epo production vs GIB - No plans for endoscopic procedure. Discussed with primary team. Treat conservatively at this time. No acute bleeding. Hb stable. - Weekly Aranesp per nephro/hematology - IV abx per ID - For further recommendations, please see attestation. Patient discussed in detail with Dr. Narayan.
[2018-12-28 15:33] LABS: URINE CREATININE 28.1 mg/dL
--- NOTE | 2018-12-28 17:03 | CP.PCM.PN ---
Subjective - Date & Time of Evaluation Date of Evaluation: 12/28/18 Time of Evaluation: 10:20 - Subjective Subjective: Comfortable on a chair, no fevers. Objective - Vital Signs/Intake and Output Vital Signs (last 24 hours): Temp Pulse Resp BP Pulse Ox 97.9 F 75 20 133/48 L 95 12/28/18 07:52 12/28/18 07:52 12/28/18 07:52 12/28/18 07:52 12/28/18 07:52 Intake and Output: 12/28/18 12/28/18 06:59 18:59 Intake Total 120 Output Total 1100 Balance -980 - Medications Medications: Current Medications Albuterol/Ipratropium (Duoneb 3 Mg/0.5 Mg (3 Ml) Ud) 3 ml IH Q6H [facility] Last Admin: 12/28/18 07:42 Dose: 3 ml Albuterol/Ipratropium (Duoneb 3 Mg/0.5 Mg (3 Ml) Ud) 3 ml IH Q2H PRN PRN Reason: Shortness of Breath Amlodipine Besylate (Norvasc) 10 mg PO DAILY [facility] Last Admin: 12/27/18 11:58 Dose: 10 mg Atorvastatin Calcium (Lipitor) 40 mg PO DAILY [facility] Last Admin: 12/27/18 11:58 Dose: 40 mg Carvedilol (Coreg) 12.5 mg PO BID [facility] Last Admin: 12/27/18 17:46 Dose: 12.5 mg Clonidine HCl (Catapres Tts1 0.1 Mg/24 Hr) 1 patch TD QWK [facility] Last Admin: 12/25/18 10:47 Dose: 1 patch Dextrose (Dextrose 50% Inj) 0 ml IV STAT PRN; Protocol PRN Reason: Hypoglycemia Protocol Ergocalciferol (Drisdol 50,000 Intl Units Cap) 1 cap PO Q7D [facility] Last Admin: 12/27/18 12:02 Dose: 1 cap Furosemide (Lasix) 40 mg IVP BID [facility] Last Admin: 12/27/18 17:45 Dose: 40 mg Furosemide (Lasix) 80 mg PO BID [facility] Glimepiride (Amaryl) 1 mg PO DAILY [facility] Last Admin: 12/27/18 11:59 Dose: 1 mg Heparin Sodium (Porcine) (Heparin) 5,000 units SC Q12 [facility]; Protocol Last Admin: 12/27/18 22:42 Dose: 5,000 units Hydralazine HCl (Apresoline) 10 mg IVP Q6 PRN PRN Reason: Systolic Blood Pressure Last Admin: 12/27/18 06:48 Dose: 10 mg Hydralazine HCl (Apresoline) 50 mg PO QID [facility] Last Admin: 12/27/18 22:42 Dose: 50 mg Dextrose (Dextrose 5% In Water 1000 Ml) 1,000 mls @ 0 mls/hr IV .Q0M PRN; Protocol PRN Reason: Hypoglycemia Protocol Meropenem 250 mg/ Sodium (Chloride) 100 mls @ 100 mls/hr IVPB Q12 [facility]; Protocol Stop: 12/31/18 22:01 Last Admin: 12/27/18 23:42 Dose: Not Given Iron Sucrose 100 mg/ Sodium (Chloride) 105 mls @ 210 mls/hr IVPB DAILY [facility] Stop: 12/30/18 10:29 Last Admin: 12/27/18 13:49 Dose: 210 mls/hr Insulin Human Regular (Humulin R Low) 0 units SC ACHS [facility]; Protocol Last Admin: 12/27/18 16:55 Dose: Not Given Prednisone (Prednisone Tab) 10 mg PO DAILY [facility] Sevelamer HCl (Renagel) 800 mg PO WM [facility] Last Admin: 12/27/18 17:46 Dose: 800 mg Torsemide (Demadex) 10 mg PO DAILY [facility] Last Admin: 12/27/18 11:59 Dose: 10 mg - Labs Labs: 12/27/18 10:30 12/27/18 10:30 PT 13.4 SECONDS (9.4-12.5) H 12/23/18 10:56 INR 1.19 12/23/18 10:56 APTT 35.0 Seconds (26.9-38.3) 12/23/18 10:56 - Constitutional Appears: Chronically Ill - Head Exam Head Exam: NORMAL INSPECTION - Respiratory Exam Respiratory Exam: Decreased Breath Sounds - Cardiovascular Exam Cardiovascular Exam: +S1, +S2 - GI/Abdominal Exam GI & Abdominal Exam: Soft. absent: Tenderness Assessment and Plan - Assessment and Plan (Free Text) Plan: Asssessment systemic inflammatory response syndrome, consider sepsis due to UTI with Group B Strep and ESBL E. coli history of right pyelonephritis with ESBL E. 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 Evangelista
[2018-12-29] MEDS: Albuterol-Ipratrop 3 mg / 0.5 (3 ml) UD IH SCH ×4 (01:50→19:58)
[2018-12-29] MEDS: Pantoprazole 40 mg EC Tab PO SCH (05:35)
[2018-12-29] MEDS ORDERED: Darbepoetin Alfa 100 mcg/ml Inj SC ONE (08:00)
[2018-12-29] MEDS: Insulin Reg-LOW-Coverage SC SCH ×4 (08:56→21:53)
--- NOTE | 2018-12-29 09:41 | PN ---
DATE: 12/29/2018 SUBJECTIVE: She is comfortable in bed, in no acute distress. She is for hemodialysis. Complaining of fatigue and shortness of breath. REVIEW OF SYSTEMS: As per HPI. Rest of 12-point review of systems reviewed and negative. PHYSICAL EXAMINATION: VITAL SIGNS: Temperature 97.9, respiratory rate 20 per minute, blood pressure 123/48, and heart rate 95 per minute. HEENT: Pallor positive. NECK: No lymphadenopathy. CHEST: Air entry present and equal bilaterally. No added sound. CARDIOVASCULAR: S1 and S2 normal. No murmur. No gallop. ABDOMEN: Soft and nontender. No hepatosplenomegaly. EXTREMITIES: Positive for pedal edema. Negative for calf tenderness. CENTRAL NERVOUS SYSTEM: Alert and oriented x3. No focal sensory or motor deficit. LABORATORY DATA: White count 6.7, hemoglobin 8.1, hematocrit 25.3, and platelet 241. Creatinine 3, glucose 160. MEDICATIONS: Albuterol 3 mL every 2 hours p.r.n., Norvasc 10 mg daily, Lipitor 40 mg daily, Coreg 12.5 mg p.o. twice a day, every weekly, IV fluids, vitamin D, Amaryl, heparin, prophylaxis, insulin, , prednisone 10 mg daily, Renagel 800 mg Wednesdays and Mondays, daily. ASSESSMENT AND PLAN: 1. Anemia related to chronic kidney disease and iron deficiency. She received few doses of IV iron. She received one dose of Aranesp last week. I will give one dose of Aranesp today 100 mg subacu. Continue 100 mg subacu Aranesp weekly. 2. Acute kidney injury. Renal following, being prepared for hemodialysis. 3. Stool occult positive. Gastrointestinal consultation requested. 4. Diabetes mellitus type 2. Controlled with current medications. 5. Hypertension. Control with current medications. Thank you Dr. Evangelista for allowing us to participate in Ms. care. Corinne Lovelace MD
[2018-12-29 11:17] LABS: BASO # 0.02 K/mm3 (0.0-2.0); BASO % 0.2 % (0.0-3.0); EOS # 0.1 (0.0-0.7); EOS % 1.3 % (1.5-5.0); HEMOGLOBIN 7.8 g/dL (12.0-16.0); LYMPH # 1.9 (1.2-3.4); MEAN CELL VOLUME 93.4 fl (80.0-105.0); MEAN CORPUSCULAR HEMOGLOBIN 30.1 pg (25.0-35.0); MEAN CORPUSCULAR HGB CONC 32.2 g/dl (31.0-37.0); MEAN PLATELET VOLUME 9.8 fl (7.0-11.0); MONO # 0.8 (0.1-0.6); MONO % 9.4 % (1.0-6.0); RBC 2.59 10^6/uL (3.5-6.1); RED CELL DISTRIBUTION WIDTH 14.8 % (11.5-14.5); WHITE BLOOD COUNT 8.7 10^3/uL (4.5-11.0)
[2018-12-29 11:29] LABS: ALB/GLOB RATIO 0.8 (1.1-1.8); ALBUMIN 2.5 g/dL (3.0-4.8); CALCIUM 7.5 mg/dL (8.4-10.5)
--- NOTE | 2018-12-29 12:32 | CT ---
Date of service: 12/29/2018 PROCEDURE: CT Chest without contrast HISTORY: Shortness of breath COMPARISON: 08/09/2018 TECHNIQUE: Contiguous axial images were obtained through the chest without intravenous contrast enhancement. Sagittal and coronal reconstructions were performed. Radiation dose: Total exam DLP = 721.27 mGy-cm. This CT exam was performed using one or more of the following dose reduction techniques: Automated exposure control, adjustment of the mA and/or kV according to patient size, and/or use of iterative reconstruction technique. FINDINGS: LUNGS: Areas of scarring, postoperative changes right lung. Similar mosaic pattern although nonspecific consistent with chronic interstitial lung disease. MEDIASTINUM: Unremarkable thoracic aorta. No aneurysm. Cardiomegaly. Trace pericardial effusion. No acute cardiovascular findings suspected. Main pulmonary artery unremarkable. No vascular congestion. No lymphadenopathy. Atherosclerotic calcification and mural plaque present. Findings are seen throughout the aorta PLEURA: No pleural fluid. No pneumothorax. BONES: No fracture. No destructive lesion. UPPER ABDOMEN: Grossly unremarkable. OTHER FINDINGS: Enlarged thyroid, intrathoracic extension of the thyroid gland without discrete common dist turn oval abnormality. IMPRESSION: No acute findings related to/ accounting for the clinical presentation. No significant interval change compared to the prior examination(s). Stable pulmonary parenchymal findings including scarring/postoperative changes right lung. Chronic interstitial lung disease, mosaic pattern. No suspicious pulmonary nodules, masses or infiltrates.
[2018-12-29] MEDS ORDERED: Lidocaine 2% Inj (20ml) ONE (13:09)
--- NOTE | 2018-12-29 14:02 | CP.PCM.PN ---
Subjective - Date & Time of Evaluation Date of Evaluation: 12/29/18 Time of Evaluation: 11:55 - Subjective Subjective: Afebrile, not in distress. Objective - Vital Signs/Intake and Output Vital Signs (last 24 hours): Temp Pulse Resp BP Pulse Ox 97.9 F 75 20 133/48 L 95 12/28/18 07:52 12/28/18 07:52 12/28/18 16:04 12/28/18 11:10 12/28/18 16:04 Intake and Output: 12/28/18 12/28/18 06:59 18:59 Intake Total 120 Output Total 1100 Balance -980 - Medications Medications: Current Medications Albuterol/Ipratropium (Duoneb 3 Mg/0.5 Mg (3 Ml) Ud) 3 ml IH Q6H [facility] Last Admin: 12/28/18 13:55 Dose: 3 ml Albuterol/Ipratropium (Duoneb 3 Mg/0.5 Mg (3 Ml) Ud) 3 ml IH Q2H PRN PRN Reason: Shortness of Breath Amlodipine Besylate (Norvasc) 10 mg PO DAILY [facility] Last Admin: 12/28/18 11:10 Dose: 10 mg Atorvastatin Calcium (Lipitor) 40 mg PO DAILY [facility] Last Admin: 12/28/18 11:09 Dose: 40 mg Carvedilol (Coreg) 12.5 mg PO BID [facility] Last Admin: 12/28/18 11:11 Dose: 12.5 mg Clonidine HCl (Catapres Tts1 0.1 Mg/24 Hr) 1 patch TD QWK [facility] Last Admin: 12/25/18 10:47 Dose: 1 patch Dextrose (Dextrose 50% Inj) 0 ml IV STAT PRN; Protocol PRN Reason: Hypoglycemia Protocol Ergocalciferol (Drisdol 50,000 Intl Units Cap) 1 cap PO Q7D [facility] Last Admin: 12/27/18 12:02 Dose: 1 cap Furosemide (Lasix) 80 mg PO BID [facility] Last Admin: 12/28/18 11:10 Dose: 80 mg Glimepiride (Amaryl) 1 mg PO DAILY [facility] Last Admin: 12/28/18 11:11 Dose: 1 mg Heparin Sodium (Porcine) (Heparin) 5,000 units SC Q12 TL; Protocol Last Admin: 12/28/18 11:11 Dose: 5,000 units Hydralazine HCl (Apresoline) 10 mg IVP Q6 PRN PRN Reason: Systolic Blood Pressure Last Admin: 12/27/18 06:48 Dose: 10 mg Hydralazine HCl (Apresoline) 50 mg PO QID [facility] Last Admin: 12/28/18 15:29 Dose: 50 mg Dextrose (Dextrose 5% In Water 1000 Ml) 1,000 mls @ 0 mls/hr IV .Q0M PRN; Protocol PRN Reason: Hypoglycemia Protocol Meropenem 250 mg/ Sodium (Chloride) 100 mls @ 100 mls/hr IVPB Q12 [facility]; Protocol Stop: 12/31/18 22:01 Last Admin: 12/28/18 11:17 Dose: Not Given Iron Sucrose 100 mg/ Sodium (Chloride) 105 mls @ 210 mls/hr IVPB DAILY [facility] Stop: 12/30/18 10:29 Last Admin: 12/28/18 11:15 Dose: Not Given Insulin Human Regular (Humulin R Low) 0 units SC ACHS [facility]; Protocol Last Admin: 12/28/18 16:50 Dose: 1 unit Pantoprazole Sodium (Protonix Ec Tab) 40 mg PO 0600 [facility] Prednisone (Prednisone Tab) 10 mg PO DAILY [facility] Last Admin: 12/28/18 11:17 Dose: 10 mg Sevelamer HCl (Renagel) 800 mg PO WM [facility] Last Admin: 12/28/18 11:28 Dose: 800 mg Torsemide (Demadex) 10 mg PO DAILY [facility] Last Admin: 12/28/18 11:28 Dose: 10 mg - Labs Labs: 12/27/18 10:30 12/28/18 14:30 PT 13.4 SECONDS (9.4-12.5) H 12/23/18 10:56 INR 1.19 12/23/18 10:56 APTT 35.0 Seconds (26.9-38.3) 12/23/18 10:56 - Constitutional Appears: Chronically Ill - Head Exam Head Exam: NORMAL INSPECTION - Respiratory Exam Respiratory Exam: Decreased Breath Sounds - Cardiovascular Exam Cardiovascular Exam: +S1, +S2 - GI/Abdominal Exam GI & Abdominal Exam: Soft. absent: Tenderness Assessment and Plan - Assessment and Plan (Free Text) Plan: Asssessment systemic inflammatory response syndrome, consider sepsis due to UTI with Group B Strep and ESBL E. coli history of right pyelonephritis with ESBL E. 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 Evangelista previously
--- NOTE | 2018-12-29 14:51 | CP.PCM.PN ---
<Sarthak Obrien Debbi - Last Filed: 12/29/18 20:03> Subjective - Date & Time of Evaluation Date of Evaluation: 12/29/18 Time of Evaluation: 14:44 - Subjective Subjective: Nephrology progress note - Camille, PGY -2 Patient seen and examined at bedside. Patient has been agitated and did not participate with PT this morning. Patient denies any new complaints, and continues to be free of dyspnea. Objective - Vital Signs/Intake and Output Vital Signs (last 24 hours): Temp Pulse Resp BP Pulse Ox 98 F 78 20 161/60 H 99 12/29/18 08:03 12/29/18 08:03 12/29/18 08:03 12/29/18 10:25 12/29/18 08:03 Intake and Output: 12/29/18 12/29/18 06:59 18:59 Intake Total 240 Output Total 1350 Balance -1110 - Medications Medications: Current Medications Albuterol/Ipratropium (Duoneb 3 Mg/0.5 Mg (3 Ml) Ud) 3 ml IH Q6H [facility] Last Admin: 12/29/18 11:14 Dose: 3 ml Albuterol/Ipratropium (Duoneb 3 Mg/0.5 Mg (3 Ml) Ud) 3 ml IH Q2H PRN PRN Reason: Shortness of Breath Amlodipine Besylate (Norvasc) 10 mg PO DAILY [facility] Last Admin: 12/29/18 10:25 Dose: 10 mg Atorvastatin Calcium (Lipitor) 40 mg PO DAILY [facility] Last Admin: 12/29/18 10:26 Dose: 40 mg Carvedilol (Coreg) 12.5 mg PO BID [facility] Last Admin: 12/29/18 10:27 Dose: 12.5 mg Clonidine HCl (Catapres Tts1 0.1 Mg/24 Hr) 1 patch TD QWK [facility] Last Admin: 12/25/18 10:47 Dose: 1 patch Dextrose (Dextrose 50% Inj) 0 ml IV STAT PRN; Protocol PRN Reason: Hypoglycemia Protocol Ergocalciferol (Drisdol 50,000 Intl Units Cap) 1 cap PO Q7D [facility] Last Admin: 12/27/18 12:02 Dose: 1 cap Furosemide (Lasix) 80 mg PO BID [facility] Last Admin: 12/29/18 10:25 Dose: 80 mg Glimepiride (Amaryl) 1 mg PO DAILY [facility] Last Admin: 12/29/18 10:26 Dose: 1 mg Heparin Sodium (Porcine) (Heparin) 5,000 units SC Q12 [facility]; Protocol Last Admin: 12/29/18 10:30 Dose: 5,000 units Hydralazine HCl (Apresoline) 10 mg IVP Q6 PRN PRN Reason: Systolic Blood Pressure Last Admin: 12/27/18 06:48 Dose: 10 mg Hydralazine HCl (Apresoline) 50 mg PO QID [facility] Last Admin: 12/29/18 10:27 Dose: 50 mg Dextrose (Dextrose 5% In Water 1000 Ml) 1,000 mls @ 0 mls/hr IV .Q0M PRN; Protocol PRN Reason: Hypoglycemia Protocol Meropenem 250 mg/ Sodium (Chloride) 100 mls @ 100 mls/hr IVPB Q12 [facility]; Protocol Stop: 12/31/18 22:01 Last Admin: 12/29/18 10:27 Dose: 100 mls/hr Iron Sucrose 100 mg/ Sodium (Chloride) 105 mls @ 210 mls/hr IVPB DAILY [facility] Stop: 12/30/18 10:29 Last Admin: 12/29/18 10:28 Dose: 210 mls/hr Insulin Human Regular (Humulin R Low) 0 units SC ACHS [facility]; Protocol Last Admin: 12/29/18 13:34 Dose: Not Given Pantoprazole Sodium (Protonix Ec Tab) 40 mg PO 0600 [facility] Last Admin: 12/29/18 05:35 Dose: 40 mg Prednisone (Prednisone Tab) 10 mg PO DAILY [facility] Last Admin: 12/29/18 10:26 Dose: 10 mg Sevelamer HCl (Renagel) 800 mg PO WM [facility] Last Admin: 12/29/18 13:35 Dose: Not Given Torsemide (Demadex) 10 mg PO DAILY [facility] Last Admin: 12/29/18 10:27 Dose: 10 mg - Labs Labs: 12/29/18 11:00 12/29/18 11:00 PT 13.4 SECONDS (9.4-12.5) H 12/23/18 10:56 INR 1.19 12/23/18 10:56 APTT 35.0 Seconds (26.9-38.3) 12/23/18 10:56 - Constitutional Appears: Well - Head Exam Head Exam: ATRAUMATIC, NORMAL INSPECTION, NORMOCEPHALIC - Eye Exam Eye Exam: EOMI, Normal appearance, PERRL Pupil Exam: NORMAL ACCOMODATION, PERRL - ENT Exam ENT Exam: Mucous Membranes Moist, Normal Exam - Neck Exam Neck Exam: Full ROM, Normal Inspection. absent: Lymphadenopathy - Respiratory Exam Respiratory Exam: Clear to Ausculation Bilateral, NORMAL BREATHING PATTERN - Cardiovascular Exam Cardiovascular Exam: REGULAR RHYTHM, +S1, +S2. absent: Murmur - GI/Abdominal Exam GI & Abdominal Exam: Soft, Normal Bowel Sounds. absent: Tenderness - Extremities Exam Extremities Exam: Full ROM, Normal Capillary Refill, Normal Inspection. absent: Joint Swelling, Pedal Edema - Back Exam Back Exam: NORMAL INSPECTION - Neurological Exam Neurological Exam: Alert, Awake, CN II-XII Intact, Normal Gait, Oriented x3 - Psychiatric Exam Psychiatric exam: Normal Affect, Normal Mood - Skin Skin Exam: Dry, Intact, Normal Color, Warm Assessment and Plan - Assessment and Plan (Free Text) Assessment: 68 F with PMH of DM2, CKD stage IV (diabetic), HTN, anemia, fatty liver, UTI and obesity presents to [facility] for AMS 2/2 UTI. Nephrology consulted for Stage IV CKD, HTN, Anemia. Plan Diabetic Nephropathy CKD 4 - Continue with renagel 800 mg WM, - Patient and family would prefer to hold off on AVF creation; vein mapping is complete HTN - Continue norvasc 10, Coreg 12.5, Clonidine patch - Continue with Torsemide 20 mg daily - D/c Lasix Anemia of CKD - Should administer another dose of Aranesp before discharge - GI on board for positive FOBT CKD with Mineral and Bone Disorder - Continue Renagel - Continue with Drisdol <Darron Santiago - Last Filed: 12/30/18 07:27> Objective - Vital Signs/Intake and Output Vital Signs (last 24 hours): Temp Pulse Resp BP Pulse Ox 98.2 F 75 20 161/79 H 99 12/29/18 17:59 12/29/18 21:52 12/29/18 17:59 12/29/18 21:52 12/29/18 17:59 Intake and Output: 12/30/18 12/30/18 06:59 18:59 Intake Total 720 Balance 720 - Medications Medications: Current Medications Albuterol/Ipratropium (Duoneb 3 Mg/0.5 Mg (3 Ml) Ud) 3 ml IH Q6H [facility] Last Admin: 12/30/18 01:14 Dose: 3 ml Albuterol/Ipratropium (Duoneb 3 Mg/0.5 Mg (3 Ml) Ud) 3 ml IH Q2H PRN PRN Reason: Shortness of Breath Amlodipine Besylate (Norvasc) 10 mg PO DAILY [facility] Last Admin: 12/29/18 10:25 Dose: 10 mg Atorvastatin Calcium (Lipitor) 40 mg PO DAILY [facility] Last Admin: 12/29/18 10:26 Dose: 40 mg Carvedilol (Coreg) 25 mg PO Q12H [facility] Clonidine HCl (Catapres Tts1 0.1 Mg/24 Hr) 1 patch TD QWK [facility] Last Admin: 12/25/18 10:47 Dose: 1 patch Dextrose (Dextrose 50% Inj) 0 ml IV STAT PRN; Protocol PRN Reason: Hypoglycemia Protocol Ergocalciferol (Drisdol 50,000 Intl Units Cap) 1 cap PO Q7D [facility] Last Admin: 12/27/18 12:02 Dose: 1 cap Glimepiride (Amaryl) 1 mg PO DAILY [facility] Last Admin: 12/29/18 10:26 Dose: 1 mg Heparin Sodium (Porcine) (Heparin) 5,000 units SC Q12 [facility]; Protocol Last Admin: 12/29/18 21:52 Dose: 5,000 units Hydralazine HCl (Apresoline) 10 mg IVP Q6 PRN PRN Reason: Systolic Blood Pressure Last Admin: 12/27/18 06:48 Dose: 10 mg Hydralazine HCl (Apresoline) 50 mg PO Q8H [facility] Last Admin: 12/30/18 05:25 Dose: Not Given Dextrose (Dextrose 5% In Water 1000 Ml) 1,000 mls @ 0 mls/hr IV .Q0M PRN; Protocol PRN Reason: Hypoglycemia Protocol Meropenem 250 mg/ Sodium (Chloride) 100 mls @ 100 mls/hr IVPB Q12 [facility]; Protocol Stop: 12/31/18 22:01 Last Admin: 12/29/18 21:54 Dose: 100 mls/hr Iron Sucrose 100 mg/ Sodium (Chloride) 105 mls @ 210 mls/hr IVPB DAILY [facility] Stop: 12/30/18 10:29 Last Admin: 12/29/18 10:28 Dose: 210 mls/hr Insulin Human Regular (Humulin R Low) [address] [facility] ON [facility]; Protocol Last Admin: 12/29/18 21:53 Dose: Not Given Pantoprazole Sodium (Protonix Ec Tab) 40 mg PO 0600 [facility] Last Admin: 12/30/18 05:26 Dose: 40 mg Prednisone (Prednisone Tab) 10 mg PO DAILY [facility] Last Admin: 12/29/18 10:26 Dose: 10 mg Sevelamer HCl (Renagel) 800 mg PO WM [facility] Last Admin: 12/29/18 18:23 Dose: 800 mg Torsemide (Demadex) 20 mg PO DAILY [facility] - Labs Labs: 12/30/18 05:45 12/30/18 05:45 PT 13.4 SECONDS (9.4-12.5) H 12/23/18 10:56 INR 1.19 12/23/18 10:56 APTT 35.0 Seconds (26.9-38.3) 12/23/18 10:56 Attending/Attestation - Attestation I have personally seen and examined this patient.: Yes I have fully participated in the care of the patient.: Yes I have reviewed all pertinent clinical information, including history, physical exam and plan: Yes Notes (Text): Patient seen and examined; I agree with the resident's note as above with the following additions/edits: Patient with late 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, admitted with E coli ESBL UTI; Renal function relatively stable, however, CrCl of 12 ml/min further confirms that need for initiation of dialysis is imminent and that patient has very little renal reserve; relatively stable electrolyte and volume status; need to avoid over-diuresis simply based on lower ext edema as this will worsen renal function; Hypertensive CKD, BP still uncontrolled; will increase coreg to 25 mg q12h; continue rest of meds; decreasing hydralazine to q8h dosing (patient cannot be expected to comply with qid dosing); stopping lasix (no need for 2 loop diuretics) and increasing torsemide to 20 mg daily; Anemia of CKD and component of iron deficiency; will continue IV iron loading; received another dose of aranesp, will need to continue as outpatient; Patient received PICC line today after losing peripheral IV line; as discussed previously with primary team, need to avoid traditional PICC in impending HD patient; should d/c PICC as soon as possible;
--- NOTE | 2018-12-29 15:27 | CP.PCM.PN ---
<Marcelo Cole - Last Filed: 12/29/18 15:24> Subjective - Date & Time of Evaluation Date of Evaluation: 12/29/18 Time of Evaluation: 08:00 - Subjective Subjective: Marcelo Cole, PGY1 Medicine Progress Note for Dr. Castanon Patient was seen and examined at bedside this morning. 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 Vital signs are stable. She denies dizziness, chest pain, nausea, vomiting, diarrhea, fevers, chills. She says she was short of breath yesterday but it has improved today even though she has audible wheez ing. She denies any history of asthma or COPD. She does have pain in the lower extremities. A full 12 point ROS was conducted and unremarkable except as stated above. Objective - Vital Signs/Intake and Output Vital Signs (last 24 hours): Temp Pulse Resp BP Pulse Ox 98 F 78 20 161/60 H 99 12/29/18 08:03 12/29/18 08:03 12/29/18 08:03 12/29/18 10:25 12/29/18 08:03 Intake and Output: 12/29/18 12/29/18 06:59 18:59 Intake Total 240 Output Total 1350 Balance -1110 - Medications Medications: Current Medications Albuterol/Ipratropium (Duoneb 3 Mg/0.5 Mg (3 Ml) Ud) 3 ml IH Q6H [facility] Last Admin: 12/29/18 11:14 Dose: 3 ml Albuterol/Ipratropium (Duoneb 3 Mg/0.5 Mg (3 Ml) Ud) 3 ml IH Q2H PRN PRN Reason: Shortness of Breath Amlodipine Besylate (Norvasc) 10 mg PO DAILY [facility] Last Admin: 12/29/18 10:25 Dose: 10 mg Atorvastatin Calcium (Lipitor) 40 mg PO DAILY [facility] Last Admin: 12/29/18 10:26 Dose: 40 mg Carvedilol (Coreg) 12.5 mg PO BID [facility] Last Admin: 12/29/18 10:27 Dose: 12.5 mg Clonidine HCl (Catapres Tts1 0.1 Mg/24 Hr) 1 patch TD QWK [facility] Last Admin: 12/25/18 10:47 Dose: 1 patch Dextrose (Dextrose 50% Inj) 0 ml IV STAT PRN; Protocol PRN Reason: Hypoglycemia Protocol Ergocalciferol (Drisdol 50,000 Intl Units Cap) 1 cap PO Q7D [facility] Last Admin: 12/27/18 12:02 Dose: 1 cap Furosemide (Lasix) 80 mg PO BID [facility] Last Admin: 12/29/18 10:25 Dose: 80 mg Glimepiride (Amaryl) 1 mg PO DAILY [facility] Last Admin: 12/29/18 10:26 Dose: 1 mg Heparin Sodium (Porcine) (Heparin) 5,000 units SC Q12 TL; Protocol Last Admin: 12/29/18 10:30 Dose: 5,000 units Hydralazine HCl (Apresoline) 10 mg IVP Q6 PRN PRN Reason: Systolic Blood Pressure Last Admin: 12/27/18 06:48 Dose: 10 mg Hydralazine HCl (Apresoline) 50 mg PO QID [facility] Last Admin: 12/29/18 10:27 Dose: 50 mg Dextrose (Dextrose 5% In Water 1000 Ml) 1,000 mls @ 0 mls/hr IV .Q0M PRN; Protocol PRN Reason: Hypoglycemia Protocol Meropenem 250 mg/ Sodium (Chloride) 100 mls @ 100 mls/hr IVPB Q12 [facility]; Protocol Stop: 12/31/18 22:01 Last Admin: 12/29/18 10:27 Dose: 100 mls/hr Iron Sucrose 100 mg/ Sodium (Chloride) 105 mls @ 210 mls/hr IVPB DAILY [facility] Stop: 12/30/18 10:29 Last Admin: 12/29/18 10:28 Dose: 210 mls/hr Insulin Human Regular (Humulin R Low) 0 units SC ACHS [facility]; Protocol Last Admin: 12/29/18 13:34 Dose: Not Given Pantoprazole Sodium (Protonix Ec Tab) 40 mg PO 0600 [facility] Last Admin: 12/29/18 05:35 Dose: 40 mg Prednisone (Prednisone Tab) 10 mg PO DAILY [facility] Last Admin: 12/29/18 10:26 Dose: 10 mg Sevelamer HCl (Renagel) 800 mg PO WM [facility] Last Admin: 12/29/18 13:35 Dose: Not Given Torsemide (Demadex) 10 mg PO DAILY [facility] Last Admin: 12/29/18 10:27 Dose: 10 mg - Labs Labs: 12/29/18 11:00 12/29/18 11:00 PT 13.4 SECONDS (9.4-12.5) H 12/23/18 10:56 INR 1.19 12/23/18 10:56 APTT 35.0 Seconds (26.9-38.3) 12/23/18 10:56 - Constitutional Appears: No Acute Distress - Head Exam Head Exam: ATRAUMATIC, NORMAL INSPECTION, NORMOCEPHALIC - Eye Exam Eye Exam: EOMI, Normal appearance, PERRL - ENT Exam ENT Exam: Mucous Membranes Moist, Normal Exam - Respiratory Exam Respiratory Exam: Wheezes (Bilateral wheezes ), NORMAL BREATHING PATTERN. absent: Chest Wall Tenderness, Rales, Rhonchi - Cardiovascular Exam Cardiovascular Exam: REGULAR RHYTHM, +S1, +S2 - GI/Abdominal Exam GI & Abdominal Exam: Soft, Normal Bowel Sounds. absent: Tenderness - Extremities Exam Extremities Exam: Normal Capillary Refill, Tenderness (Bilateral lower ext tenderness.). absent: Calf Tenderness Additional comments: +2 pitting edema bilaterally. - Neurological Exam Neurological Exam: Alert, Awake, CN II-XII Intact, Oriented x3 - Psychiatric Exam Psychiatric exam: Normal Affect, Normal Mood - Skin Skin Exam: Dry, Intact, Normal Color, Warm Assessment and Plan - Assessment and Plan (Free Text) Assessment: Patient is a 68 y/o ukrainian speaking F with PMHx of CKD, DM2, HTN, HLD, anemia who presented to ED for change in mental status, lethargy and weakness in the setting of ESBL UTI and symptomatic anemia. Plan: AMS 2/2 ESBL UTI - resolved - c/w merrem for a total of 7-10 days of IV antibiotics - IV access was lost, pending IR guided placement today to c/w IV antibiotics - Leukocytosis has improved. - U/A revealing (+) nitrate. Urine cultures growing E. Coli, B-hemolytic group B strep - Blood cx were negative x2 - c/w contact isolation - Hx ESBL and E. Coli resistant to multiple organisms - ID is on board (Dr. Quiros). Recs appreciated. - CT Head: negative for CVA - MRI Head: negative SOB - r/o PE - CT Chest w/o contrast given JOSUE: no acute findings or interval change. - D-dimer 516 - Will obtain V/Q scan to determine PE probability - bilateral wheezing still present on lung exam - c/w prednisone PO - CXR wnl - continue duoneb standing and prn - c/w lasix BID - c/w torsemide - LE doppler: negative for DVT JOSUE on stage IV CKD - Advanced Diabetic Nephropathy - Cr is 3.0 - Biopsy results revealed advanced diabetic nephropathy. - vein mapping completed. - continue home renvela - continue ergocalciferol - c/w strict ins/outs - Nephro following (Dr. Santiago). Recs appreciated. Symptomatic Anemia - Hgb was 7.8 on admission, s/p x1 pRBC. Hgb improved. - continue with iron - Normocytic anemia; likely ACD in the setting of CKD - Stool guaiac was positive - GI following, recommending outpatient endoscopic workup Hx DM2 - Continue home glimepiride - ISS - Accuchecks Hx HTN - Continue home amlodipine, carvedilol, clonidine, and hydralazine PO QID Hx HLD - continue atorvastatin DVT/GI PPx: Hep SC/protonix Diet: HHD Dispo: Continue to monitor patient on the floor. Pending placement of IV access via IR today. Case was discussed and reviewed with Attending Physician, Dr. Castanon. <Megan Narayan V - Last Filed: 12/29/18 23:38> Objective - Vital Signs/Intake and Output Vital Signs (last 24 hours): Temp Pulse Resp BP Pulse Ox 98.2 F 75 20 161/79 H 99 12/29/18 17:59 12/29/18 21:52 12/29/18 17:59 12/29/18 21:52 12/29/18 17:59 Intake and Output: 12/29/18 12/30/18 18:59 06:59 Intake Total 720 Balance 720 - Medications Medications: Current Medications Albuterol/Ipratropium (Duoneb 3 Mg/0.5 Mg (3 Ml) Ud) 3 ml IH Q6H [facility] Last Admin: 12/29/18 19:58 Dose: 3 ml Albuterol/Ipratropium (Duoneb 3 Mg/0.5 Mg (3 Ml) Ud) 3 ml IH Q2H PRN PRN Reason: Shortness of Breath Amlodipine Besylate (Norvasc) 10 mg PO DAILY [facility] Last Admin: 12/29/18 10:25 Dose: 10 mg Atorvastatin Calcium (Lipitor) 40 mg PO DAILY [facility] Last Admin: 12/29/18 10:26 Dose: 40 mg Carvedilol (Coreg) 25 mg PO Q12H [facility] Clonidine HCl (Catapres Tts1 0.1 Mg/24 Hr) 1 patch TD QWK [facility] Last Admin: 12/25/18 10:47 Dose: 1 patch Dextrose (Dextrose 50% Inj) 0 ml IV STAT PRN; Protocol PRN Reason: Hypoglycemia Protocol Ergocalciferol (Drisdol 50,000 Intl Units Cap) 1 cap PO Q7D [facility] Last Admin: 12/27/18 12:02 Dose: 1 cap Glimepiride (Amaryl) 1 mg PO DAILY [facility] Last Admin: 12/29/18 10:26 Dose: 1 mg Heparin Sodium (Porcine) (Heparin) 5,000 units SC Q12 [facility]; Protocol Last Admin: 12/29/18 21:52 Dose: 5,000 units Hydralazine HCl (Apresoline) 10 mg IVP Q6 PRN PRN Reason: Systolic Blood Pressure Last Admin: 12/27/18 06:48 Dose: 10 mg Hydralazine HCl (Apresoline) 50 mg PO Q8H [facility] Dextrose (Dextrose 5% In Water 1000 Ml) 1,000 mls @ 0 mls/hr IV .Q0M PRN; Protocol PRN Reason: Hypoglycemia Protocol Meropenem 250 mg/ Sodium (Chloride) 100 mls @ 100 mls/hr IVPB Q12 [facility]; Protocol Stop: 12/31/18 22:01 Last Admin: 12/29/18 21:54 Dose: 100 mls/hr Iron Sucrose 100 mg/ Sodium (Chloride) 105 mls @ 210 mls/hr IVPB DAILY [facility] Stop: 12/30/18 10:29 Last Admin: 12/29/18 10:28 Dose: 210 mls/hr Insulin Human Regular (Humulin R Low) 0 units SC ACHS [facility]; Protocol Last Admin: 12/29/18 21:53 Dose: Not Given Pantoprazole Sodium (Protonix Ec Tab) 40 mg PO 0600 [facility] Last Admin: 12/29/18 05:35 Dose: 40 mg Prednisone (Prednisone Tab) 10 mg PO DAILY [facility] Last Admin: 12/29/18 10:26 Dose: 10 mg Sevelamer HCl (Renagel) 800 mg PO WM [facility] Last Admin: 12/29/18 18:23 Dose: 800 mg Torsemide (Demadex) 20 mg PO DAILY [facility] - Labs Labs: 12/29/18 11:00 12/29/18 11:00 PT 13.4 SECONDS (9.4-12.5) H 12/23/18 10:56 INR 1.19 12/23/18 10:56 APTT 35.0 Seconds (26.9-38.3) 12/23/18 10:56 Attending/Attestation - Attestation I have personally seen and examined this patient.: Yes I have fully participated in the care of the patient.: Yes I have reviewed all pertinent clinical information, including history, physical exam and plan: Yes Notes (Text): This is an addendum to GI progress report dictated by the GI Fellow.The patient was seen and examined earlier. Medical records, lab studies, imagings were reviewed. Last 24 hours events reviewed. Agreed with the above treatment plan as outlined in GI Fellow 's notes with the addition of the following 12/29/18 23:39 <Brisa Castanon R - Last Filed: 12/30/18 07:46> Objective - Vital Signs/Intake and Output Vital Signs (last 24 hours): Temp Pulse Resp BP Pulse Ox 98.2 F 75 20 161/79 H 99 12/29/18 17:59 12/29/18 21:52 12/29/18 17:59 12/29/18 21:52 12/29/18 17:59 Intake and Output: 12/30/18 12/30/18 06:59 18:59 Intake Total 720 Balance 720 - Medications Medications: Current Medications Albuterol/Ipratropium (Duoneb 3 Mg/0.5 Mg (3 Ml) Ud) 3 ml IH Q6H [facility] Last Admin: 12/30/18 01:14 Dose: 3 ml Albuterol/Ipratropium (Duoneb 3 Mg/0.5 Mg (3 Ml) Ud) 3 ml IH Q2H PRN PRN Reason: Shortness of Breath Amlodipine Besylate (Norvasc) 10 mg PO DAILY [facility] Last Admin: 12/29/18 10:25 Dose: 10 mg Atorvastatin Calcium (Lipitor) 40 mg PO DAILY [facility] Last Admin: 12/29/18 10:26 Dose: 40 mg Carvedilol (Coreg) 25 mg PO Q12H [facility] Clonidine HCl (Catapres Tts1 0.1 Mg/24 Hr) 1 patch TD QWK [facility] Last Admin: 12/25/18 10:47 Dose: 1 patch Dextrose (Dextrose 50% Inj) 0 ml IV STAT PRN; Protocol PRN Reason: Hypoglycemia Protocol Ergocalciferol (Drisdol 50,000 Intl Units Cap) 1 cap PO Q7D [facility] Last Admin: 12/27/18 12:02 Dose: 1 cap Glimepiride (Amaryl) 1 mg PO DAILY [facility] Last Admin: 12/29/18 10:26 Dose: 1 mg Heparin Sodium (Porcine) (Heparin) 5,000 units SC Q12 [facility]; Protocol Last Admin: 12/29/18 21:52 Dose: 5,000 units Hydralazine HCl (Apresoline) 10 mg IVP Q6 PRN PRN Reason: Systolic Blood Pressure Last Admin: 12/27/18 06:48 Dose: 10 mg Hydralazine HCl (Apresoline) 50 mg PO Q8H [facility] Last Admin: 12/30/18 05:25 Dose: Not Given Dextrose (Dextrose 5% In Water 1000 Ml) 1,000 mls @ 0 mls/hr IV .Q0M PRN; Protocol PRN Reason: Hypoglycemia Protocol Meropenem 250 mg/ Sodium (Chloride) 100 mls @ 100 mls/hr IVPB Q12 [facility]; Protocol Stop: 12/31/18 22:01 Last Admin: 12/29/18 21:54 Dose: 100 mls/hr Iron Sucrose 100 mg/ Sodium (Chloride) 105 mls @ 210 mls/hr IVPB DAILY [facility] Stop: 12/30/18 10:29 Last Admin: 12/29/18 10:28 Dose: 210 mls/hr Insulin Human Regular (Humulin R Low) 0 units SC ACHS [facility]; Protocol Last Admin: 12/29/18 21:53 Dose: Not Given Pantoprazole Sodium (Protonix Ec Tab) 40 mg PO 0600 [facility] Last Admin: 12/30/18 05:26 Dose: 40 mg Prednisone (Prednisone Tab) 10 mg PO DAILY [facility] Last Admin: 12/29/18 10:26 Dose: 10 mg Sevelamer HCl (Renagel) 800 mg PO WM [facility] Last Admin: 12/29/18 18:23 Dose: 800 mg Torsemide (Demadex) 20 mg PO DAILY [facility] - Labs Labs: 12/30/18 05:45 12/30/18 05:45 PT 13.4 SECONDS (9.4-12.5) H 12/23/18 10:56 INR 1.19 12/23/18 10:56 APTT 35.0 Seconds (26.9-38.3) 12/23/18 10:56 Addendum Addendum: Patient seen and examined by me with resident at 11:05AM on 12/29/18. Case including HPI, physical exam, and assessment and plan discussed with resident. Agree with above with following additions/corrections. Patient is a 68-year-old female with past medical history significant for chronic kidney disease, type 2 diabetes, hypertension, hyperlipidemia, and anemia that presented to the emergency room for change in mental status, lethargy, and weakness. 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 Patient states she is feeling ok. She states she is feeling a little short of breath but it has improved since yesterday. She states she had some nasal congestion yesterday that improved today. She denies chest pain or palpitations. No fevers or chills. No headaches or dizziness. No dysuria or burning with urination. No diarrhea. No nausea, vomiting, or abdominal pain. Physical exam: General: Awake and alert lying in bed in no acute distress HEENT: Normocephalic, atraumatic. Extraocular muscles intact, pupils equal and reactive, no scleral icterus. Oropharynx is pink and moist. No pharyngeal eryth wing or exudate appreciated. Neck is supple. Cardiovascular: Regular rhythm. Normal S1 and S2. No murmurs, rubs, or gallops appreciated Pulmonary: Using abdominal accessory muscles. Decreased breath sounds. Mild expiratory wheezing. No rhonchi or rales appreciated. Gastrointestinal: Soft, nondistended. Nontender. Positive bowel sounds all 4 quadrants. No guarding. Musculoskeletal: Moves all extremities. No calf tenderness. No edema. Central nervous system: AAOx3. Dermatologic: Skin warm and dry. Assessment and plan: Patient is a 68-year-old female with past medical history significant for chronic kidney disease, type 2 diabetes, hypertension, hyperlipidemia, and anemia that presented to the emergency room for change in mental status, lethargy, and weakness. 1. UTI. Urine culture positive for ESBL and Beta hemolytic Strep Group B. Continue Merrem day #6. ID following, recommendations appreciated. Patient afebrile and no leukocytosis. Blood cultures with no growth. 2. Toxic metabolic encephalopathy. Likey secondary to UTI. Appears to be resolved. Neurology following, recommendations appreciated. Head CT per radiologist showed no acute intracranial pathology identified. Brain MRI per radiologist showed no acute intracranial findings. Continue supportive care. 3. JOSUE on CKD stage IV. Will likely need dialysis in the near future. Nephrology following, recommendations appreciated. Patient does not what AV fistula currently. Vein mapping completed. Continue Renagel. Continue Torsemide. Continue Lasix. Chest xray showed no active disease. 4. Dyspnea. Chest xray showed no active disease. Continue nebulizer treatments. Continue prednisone. Will get chest CT. 5. Essential hypertension. Continue Norvasc, Coreg, Clonidine patch, and hydralazine 6. DM2. Continue insulin sliding scale, Continue amaryl. Continue to monitor accuchecks. 7. Hyperlipidemia. Continue Lipitor. 8. Anemia of chronic disease. FOBT+. S/P 1 unit PRBC on 12/24/18. GI following, recommendations appreciated. No plans for endoscopic procedure for now. Continue IV iron. H&H stable, continue to monitor. Weekly Aranesp. [employer] following, recommendations appreciated. 9. GI/DVT prophylaxis. Protonix/heparin 10. Patient is a full code. Case was discussed in detail with the patient regarding current diagnosis and treatment plan. All questions answered.
--- NOTE | 2018-12-29 16:51 | NM ---
Date of service: 12/29/2018 COMPARISON: 12/27/2018 single-view chest. December 29, 2018 CT thorax TECHNIQUE: 30.0 mCi technetium 99-m DTPA aerosol. 4.3 mCI technetium 99-m MAA administered intravenously. FINDINGS: VENTILATION COMPONENT: Heterogeneous ventilationRetention of radionuclide in the tracheobronchial tree and ingestion of radionuclide in the stomach, incidental findings PERFUSION COMPONENT: . Retention of radionuclide in the tracheobronchial tree and ingestion of radionuclide in the stomach, incidental findings Heterogeneous distribution of radionuclide. No geographic, segmental, lobar abnormalities apparent on the present examination. IMPRESSION: Low probability ventilation perfusion scan for pulmonary embolism.
--- NOTE | 2018-12-29 19:18 | VASCULAR ---
PROCEDURE: Ultrasound and fluoroscopically placed right upper extremity PICC line. HISTORY: Sepsis. Long-term IV antibiotics. PHYSICIAN(S): Cullen Valverde MD. TECHNIQUE: The relative risks and indications of the procedure were explained to the patient and consent obtained. The patient was placed supine on the arteriogram table and the right arm prepped and draped in the usual sterile fashion. A tourniquet was applied to the right axilla. 1% Xylocaine was used to anesthetize the skin and soft tissues at the puncture site above the elbow. The left brachial vein was punctured under direct ultrasound guidance with a micropuncture set. A 0.018 guidewire was advanced centrally and used to measure the length to the SVC/RA junction. A 5 [place] single-lumen PICC line 45 cm long was advanced to the SVC/RA junction. The catheter was flushed and secured. The patient tolerated the procedure well. IMPRESSION: 1. Ultrasound and fluoroscopically placed right upper extremity PICC line. A 5 [place] single-lumen PICC line 45 cm long was advanced to the SVC/RA junction.
[2018-12-30] MEDS: Albuterol-Ipratrop 3 mg / 0.5 (3 ml) UD IH SCH ×3 (01:14→19:40)
[2018-12-30] MEDS: Pantoprazole 40 mg EC Tab PO SCH (05:26)
[2018-12-30 06:27] LABS: MEAN CELL VOLUME 93.5 fl (80.0-105.0); MEAN CORPUSCULAR HEMOGLOBIN 30.4 pg (25.0-35.0); MEAN CORPUSCULAR HGB CONC 32.5 g/dl (31.0-37.0); RBC 2.63 10^6/uL (3.5-6.1); RED CELL DISTRIBUTION WIDTH 14.9 % (11.5-14.5); WHITE BLOOD COUNT 7.6 10^3/uL (4.5-11.0)
[2018-12-30 06:59] LABS: ALB/GLOB RATIO 0.9 (1.1-1.8); ALBUMIN 2.7 g/dL (3.0-4.8); CALCIUM 8.2 mg/dL (8.4-10.5)
--- NOTE | 2018-12-30 07:37 | CP.PCM.PN ---
<CamilleSarthak Werner - Last Filed: 12/30/18 21:20> Subjective - Date & Time of Evaluation Date of Evaluation: 12/30/18 Time of Evaluation: 07:00 - Subjective Subjective: Nephrology progress note - Camille, PGY -2 Patient seen and examined at bedside. Patient had fluoroscopically placed R sided PICC line yesterday by Dr. Valverde. No other acute overnight events. PT recommended home with PT. Patient herself denies any new complaints and continues to have good respiratory effort. Of note, we discussed the urgency of preparing for dialysis with the patients family. They have Agreed to discuss as a family. Risks benefits were discussed with the family Objective - Vital Signs/Intake and Output Vital Signs (last 24 hours): Temp Pulse Resp BP Pulse Ox 98.2 F 75 20 161/79 H 99 12/29/18 17:59 12/29/18 21:52 12/29/18 17:59 12/29/18 21:52 12/29/18 17:59 Intake and Output: 12/30/18 12/30/18 06:59 18:59 Intake Total 720 Balance 720 - Medications Medications: Current Medications Albuterol/Ipratropium (Duoneb 3 Mg/0.5 Mg (3 Ml) Ud) 3 ml IH Q6H [facility] Last Admin: 12/30/18 01:14 Dose: 3 ml Albuterol/Ipratropium (Duoneb 3 Mg/0.5 Mg (3 Ml) Ud) 3 ml IH Q2H PRN PRN Reason: Shortness of Breath Amlodipine Besylate (Norvasc) 10 mg PO DAILY [facility] Last Admin: 12/29/18 10:25 Dose: 10 mg Atorvastatin Calcium (Lipitor) 40 mg PO DAILY [facility] Last Admin: 12/29/18 10:26 Dose: 40 mg Carvedilol (Coreg) 25 mg PO Q12H [facility] Clonidine HCl (Catapres Tts1 0.1 Mg/24 Hr) 1 patch TD QWK [facility] Last Admin: 12/25/18 10:47 Dose: 1 patch Dextrose (Dextrose 50% Inj) 0 ml IV STAT PRN; Protocol PRN Reason: Hypoglycemia Protocol Ergocalciferol (Drisdol 50,000 Intl Units Cap) 1 cap PO Q7D [facility] Last Admin: 12/27/18 12:02 Dose: 1 cap Glimepiride (Amaryl) 1 mg PO DAILY [facility] Last Admin: 12/29/18 10:26 Dose: 1 mg Heparin Sodium (Porcine) (Heparin) 5,000 units SC Q12 [facility]; Protocol Last Admin: 12/29/18 21:52 Dose: 5,000 units Hydralazine HCl (Apresoline) 10 mg IVP Q6 PRN PRN Reason: Systolic Blood Pressure Last Admin: 12/27/18 06:48 Dose: 10 mg Hydralazine HCl (Apresoline) 50 mg PO Q8H [facility] Last Admin: 12/30/18 05:25 Dose: Not Given Dextrose (Dextrose 5% In Water 1000 Ml) 1,000 mls @ 0 mls/hr IV .Q0M PRN; Protocol PRN Reason: Hypoglycemia Protocol Meropenem 250 mg/ Sodium (Chloride) 100 mls @ 100 mls/hr IVPB Q12 [facility]; Protocol Stop: 12/31/18 22:01 Last Admin: 12/29/18 21:54 Dose: 100 mls/hr Iron Sucrose 100 mg/ Sodium (Chloride) 105 mls @ 210 mls/hr IVPB DAILY [facility] Stop: 12/30/18 10:29 Last Admin: 12/29/18 10:28 Dose: 210 mls/hr Insulin Human Regular (Humulin R Low) 0 units SC ACHS [facility]; Protocol Last Admin: 12/29/18 21:53 Dose: Not Given Pantoprazole Sodium (Protonix Ec Tab) 40 mg PO 0600 [facility] Last Admin: 12/30/18 05:26 Dose: 40 mg Prednisone (Prednisone Tab) 10 mg PO DAILY [facility] Last Admin: 12/29/18 10:26 Dose: 10 mg Sevelamer HCl (Renagel) 800 mg PO WM [facility] Last Admin: 12/29/18 18:23 Dose: 800 mg Torsemide (Demadex) 20 mg PO DAILY [facility] - Labs Labs: 12/30/18 05:45 12/30/18 05:45 PT 13.4 SECONDS (9.4-12.5) H 12/23/18 10:56 INR 1.19 12/23/18 10:56 APTT 35.0 Seconds (26.9-38.3) 12/23/18 10:56 - Constitutional Appears: Well - Head Exam Head Exam: ATRAUMATIC, NORMAL INSPECTION, NORMOCEPHALIC - Eye Exam Eye Exam: EOMI, Normal appearance, PERRL Pupil Exam: NORMAL ACCOMODATION, PERRL - ENT Exam ENT Exam: Mucous Membranes Moist, Normal Exam - Neck Exam Neck Exam: Full ROM, Normal Inspection. absent: Lymphadenopathy - Respiratory Exam Respiratory Exam: Clear to Ausculation Bilateral, NORMAL BREATHING PATTERN - Cardiovascular Exam Cardiovascular Exam: REGULAR RHYTHM, +S1, +S2. absent: Murmur - GI/Abdominal Exam GI & Abdominal Exam: Soft, Normal Bowel Sounds. absent: Tenderness - Extremities Exam Extremities Exam: Full ROM, Normal Capillary Refill, Normal Inspection. absent: Joint Swelling, Pedal Edema - Back Exam Back Exam: NORMAL INSPECTION - Neurological Exam Neurological Exam: Alert, Awake, CN II-XII Intact, Normal Gait, Oriented x3 - Psychiatric Exam Psychiatric exam: Normal Affect, Normal Mood - Skin Skin Exam: Dry, Intact, Normal Color, Warm Assessment and Plan - Assessment and Plan (Free Text) Assessment: 68 F with PMH of DM2, CKD stage IV (diabetic), HTN, anemia, fatty liver, UTI and obesity presents to [facility] for AMS 2/2 UTI. Nephrology consulted for Stage IV CKD, HTN, Anemia. Plan Diabetic Nephropathy CKD 4 - Continue with renagel 800 mg WM, - Patient and family would prefer to hold off on AVF creation; vein mapping is complete HTN - Continue norvasc 10, Coreg 12.5, Clonidine patch - Continue with Torsemide 20 mg daily Anemia of CKD - Should administer another dose of Aranesp before discharge - GI on board for positive FOBT - Stat dose of Lasix was given, and ches x-ray stat was ordered CKD with Mineral and Bone Disorder - Continue Renagel - Continue with Drisdol <Darron Santiago - Last Filed: 12/31/18 08:14> Objective - Vital Signs/Intake and Output Vital Signs (last 24 hours): Temp Pulse Resp BP Pulse Ox 98.2 F 76 22 164/76 H 96 12/31/18 06:00 12/31/18 06:00 12/31/18 06:00 12/31/18 06:00 12/31/18 06:00 Intake and Output: 12/31/18 12/31/18 06:59 18:59 Intake Total 240 Output Total 200 Balance 40 - Medications Medications: Current Medications Albuterol/Ipratropium (Duoneb 3 Mg/0.5 Mg (3 Ml) Ud) 3 ml IH Q6H [facility] Last Admin: 12/31/18 02:19 Dose: 3 ml Albuterol/Ipratropium (Duoneb 3 Mg/0.5 Mg (3 Ml) Ud) 3 ml IH Q2H PRN PRN Reason: Shortness of Breath Last Admin: 12/30/18 12:04 Dose: 3 ml Amlodipine Besylate (Norvasc) 10 mg PO DAILY [facility] Last Admin: 12/30/18 10:40 Dose: 10 mg Arformoterol Tartrate (Brovana) 15 mcg IH [id number] [facility] Last Admin: 12/30/18 19:40 Dose: 15 mcg Atorvastatin Calcium (Lipitor) 40 mg PO DAILY [facility] Last Admin: 12/30/18 10:39 Dose: 40 mg Budesonide (Pulmicort Respules) 0.5 mg IH [id number] [facility] Carvedilol (Coreg) 25 mg PO Q12H [facility] Last Admin: 12/30/18 17:50 Dose: 25 mg Clonidine HCl (Catapres Tts1 0.1 Mg/24 Hr) 1 patch TD QWK [facility] Last Admin: 12/25/18 10:47 Dose: 1 patch Dextrose (Dextrose 50% Inj) 0 ml IV STAT PRN; Protocol PRN Reason: Hypoglycemia Protocol Ergocalciferol (Drisdol 50,000 Intl Units Cap) 1 cap PO Q7D [facility] Last Admin: 12/27/18 12:02 Dose: 1 cap Glimepiride (Amaryl) 1 mg PO DAILY [facility] Last Admin: 12/30/18 10:40 Dose: 1 mg Heparin Sodium (Porcine) (Heparin) 5,000 units SC Q12 [facility]; Protocol Last Admin: 12/30/18 21:58 Dose: 5,000 units Hydralazine HCl (Apresoline) 10 mg IVP Q6 PRN PRN Reason: Systolic Blood Pressure Last Admin: 12/27/18 06:48 Dose: 10 mg Hydralazine HCl (Apresoline) 50 mg PO Q8H [facility] Last Admin: 12/31/18 05:39 Dose: 50 mg Dextrose (Dextrose 5% In Water 1000 Ml) 1,000 mls @ 0 mls/hr IV .Q0M PRN; Protocol PRN Reason: Hypoglycemia Protocol Meropenem 250 mg/ Sodium (Chloride) 100 mls @ 100 mls/hr IVPB Q12 [facility]; Protocol Stop: 12/31/18 22:01 Last Admin: 12/30/18 22:01 Dose: 100 mls/hr Insulin Human Regular (Humulin R Low) 0 units SC ACHS [facility]; Protocol Last Admin: 12/30/18 22:23 Dose: 3 unit Methylprednisolone (Solu-Medrol) 40 mg IVP Q12 [facility] Last Admin: 12/30/18 22:01 Dose: 40 mg Pantoprazole Sodium (Protonix Ec Tab) 40 mg PO 0600 [facility] Last Admin: 12/31/18 05:40 Dose: 40 mg Sevelamer HCl (Renagel) 800 mg PO WM [facility] Last Admin: 12/30/18 17:51 Dose: 800 mg Torsemide (Demadex) 20 mg PO DAILY [facility] Last Admin: 12/30/18 17:50 Dose: 20 mg - Labs Labs: 12/31/18 05:50 12/31/18 05:50 PT 13.4 SECONDS (9.4-12.5) H 12/23/18 10:56 INR 1.19 12/23/18 10:56 APTT 35.0 Seconds (26.9-38.3) 12/23/18 10:56 Attending/Attestation - Attestation I have personally seen and examined this patient.: Yes I have fully participated in the care of the patient.: Yes I have reviewed all pertinent clinical information, including history, physical exam and plan: Yes Notes (Text): Patient seen and examined; I agree with the resident's note as above with the following additions/edits: Patient with htn, dm, and late CKD IV/V, admitted with E coli ESBL UTI; Again discussed overall renal prognosis at length with patient's daughter who was at bedside after patient asked for us to talk to her (witnessed by nurse); emphasized impending ESRD and need for HD in the coming months but possibly earlier; patient's daughter asking for transfer to another hospital for dialysis evaluation; we advised her that at this current moment, there is no urgency to start dialysis; furthermore, if dialysis becomes necessary, there is not need to transfer patient as this service is available here; nevertheless, we expect that patient will be able to be discharged after completion of IV antibiotics but that she will need close outpatient f/u with a instructor painting (preferably in her area) for preparation for dialysis; Otherwise, relatively stable electrolyte status; high BP and lower ext edema indicative of overall volume excess but still relatively stable and can be managed by cautious use of diuretics for now; will increase hydralazine dose further to 100 mg q8h; need to avoid over-diuresis in order to maintain current level of GFR; Anemia of CKD w/ iron deficiency component; getting another unit of prbc today; needs outpatient f/u and continuation of EPO; 24 hr urine noted for 6g protein, consistent with nephrotic syndrome; giving ANASTASIYA blockade relatively contraindicated at this late stage of CKD; still awaiting result of UPEP; may need outpatient hematology f/u as serum immunofixation was positive (although free light chain ratio not elevated); We will again emphasize that PICC line needs to be removed [place] once antibiotic course completed; if patient needs mcc antibiotics, traditional PICC line should not be placed but rather she would need direct IJ line (in order to preserve peripheral veins);
--- NOTE | 2018-12-30 08:57 | PN ---
DATE: 12/30/2018 SUBJECTIVE: She is comfortable in bed, in no acute distress. No shortness of breath. No fever. No cough with expectoration. She is being prepared for hemodialysis. Hemoglobin is 8 g per dL today, the lowest one was 6.7. She has received one unit of blood transfusion. She received few doses of IV iron and weekly Aranesp. REVIEW OF SYSTEMS: As per HPI. Rest of 12-point review of systems reviewed and negative. PHYSICAL EXAMINATION: GENERAL: Comfortable in bed, in no acute distress. VITAL SIGNS: Temperature 97.8, heart rate 85, blood pressure 120/60, oxygen saturation 95% on room air. HEENT: Pallor positive. NECK: No lymphadenopathy. CHEST: Air entry present and equal bilaterally. No added sound. CARDIOVASCULAR: S1 and S2 normal. No murmur. No gallop. ABDOMEN: Soft and nontender. No hepatosplenomegaly. EXTREMITIES: 1+ edema. CENTRAL NERVOUS SYSTEM: Alert and oriented x3. No focal sensory or motor deficit. LABORATORY DATA: White count 7.6, hemoglobin 8, hematocrit 24.6, platelets 320. Sodium 136, potassium 4.3, creatinine 3.4. protein. MEDICATIONS: Reviewed. ASSESSMENT AND PLAN: 1. Acute on chronic renal failure. Being prepared for hemodialysis. Dr. Santiago's note reviewed. 2. Anemia. Hemoglobin 8 g per dL. She is on intravenous iron and Aranesp subcutaneously. I would recommend one unit of packed red blood cells. 3. Stool occult blood positive. Gastroenterology consultation recommended. 4. Diabetes mellitus type 2. Management as per primary team. Thank you Dr. Evangelista for allowing us to participate in Ms. Stern's care. Corinne Lovelace MD
[2018-12-30] MEDS: Insulin Reg-LOW-Coverage SC SCH ×4 (09:05→22:23)
[2018-12-30] MEDS ORDERED: Budesonide 0.5 mg/2 ml Inhal Susp UD IH ONE (09:15)
[2018-12-30] MEDS ORDERED: Arformoterol 15 mcg/2 ml Inh Sol IH ONE (09:15)
[2018-12-30] MEDS ORDERED: Fluticasone-Salmeterol 250-50mcg Diskus IH SCH (10:00)
[2018-12-30 10:03] LABS: CREATININE, 24 HOUR URINE 0.64 g/24 h (0.50-2.15)
[2018-12-30] MEDS: MethylPREDNISolone 40 mg Vial IVP SCH ×2 (10:41→22:01)
--- NOTE | 2018-12-30 11:58 | CP.PCM.CON ---
History of Present Illness - History of Present Illness History of Present Illness: PULMONARY CONSULT NOTE REASON FOR CONSULT: ILD, MOSAIC PATTERN HPI Patient is 68yo female with PMhx of CKD, DMII, HTN, HLD, anemia, presented to the hospital with lethargy, fatigue, and confusion. Patient has had complicated hospital course, complicated by anemia, worsening renal failure, and now Asthma exacerbation. Pt reports at baseline she is only shor tof breath climbing stairs, otherwise never has SOB or CP. Pt denies fever, chills, wieght loss, cough, palpitations, CARMONA, dizziness. No other constitutional symptoms. Pt able to walk >[address] Chest done on this admission, shows non specific mosaic pattern with br onchiectasis, all of which was present on CT chest last year. PMH: CKD, DM2, HTN, HLD, anemia ALL: NKDA PSH: unspecified stomach tumor removal, appendectomy, cholecystectomy, thyroid surgery, back surgery SH: Denies smoking, EtOH, drug use FH: Father: DM2 Review of Systems - Review of Systems Review of Systems: as per HPI Past Patient History - Infectious Disease Hx of Infectious Diseases: None - Tetanus Immunizations Tetanus Immunization: Unknown - Past Social History Smoking Status: Former Smoker Alcohol: None Drugs: Denies Home Situation {Lives}: With Family - CARDIAC Hx Pacemaker: No - PULMONARY Hx Respiratory Disorders: No - NEUROLOGICAL Hx Neurological Disorder: No - HEENT Hx HEENT Problems: No - RENAL Hx Chronic Kidney Disease: Yes Hx Dialysis: No - ENDOCRINE/METABOLIC Hx Diabetes Mellitus Type 2: Yes - HEMATOLOGICAL/ONCOLOGICAL Hx Cancer: No - INTEGUMENTARY Hx Dermatological Problems: No - MUSCULOSKELETAL/RHEUMATOLOGICAL Hx Falls: No - GASTROINTESTINAL Hx Fatty Liver Disease: Yes - GENITOURINARY/GYNECOLOGICAL Hx Genitourinary Disorders: No - PSYCHIATRIC Hx Substance Use: No - SURGICAL HISTORY Hx Mastectomy: No - ANESTHESIA Hx Anesthesia: Yes Hx Anesthesia Reactions: No Hx Malignant Hyperthermia: No Meds Allergies/Adverse Reactions: Allergies Allergy/AdvReac Type Severity Reaction Status Date / Time No Known Allergies Allergy Verified 12/23/18 11:46 - Medications Medications: Current Medications Albuterol/Ipratropium (Duoneb 3 Mg/0.5 Mg (3 Ml) Ud) 3 ml IH Q6H [facility] Last Admin: 12/30/18 07:48 Dose: 3 ml Albuterol/Ipratropium (Duoneb 3 Mg/0.5 Mg (3 Ml) Ud) 3 ml IH Q2H PRN PRN Reason: Shortness of Breath Amlodipine Besylate (Norvasc) 10 mg PO DAILY [facility] Last Admin: 12/30/18 10:40 Dose: 10 mg Arformoterol Tartrate (Brovana) 15 mcg IH [id number] [facility] Atorvastatin Calcium (Lipitor) 40 mg PO DAILY [facility] Last Admin: 12/30/18 10:39 Dose: 40 mg Budesonide (Pulmicort Respules) 0.5 mg IH [id number] [facility] Carvedilol (Coreg) 25 mg PO Q12H [facility] Clonidine HCl (Catapres Tts1 0.1 Mg/24 Hr) 1 patch TD QWK [facility] Last Admin: 12/25/18 10:47 Dose: 1 patch Dextrose (Dextrose 50% Inj) 0 ml IV STAT PRN; Protocol PRN Reason: Hypoglycemia Protocol Ergocalciferol (Drisdol 50,000 Intl Units Cap) 1 cap PO Q7D [facility] Last Admin: 12/27/18 12:02 Dose: 1 cap Glimepiride (Amaryl) 1 mg PO DAILY [facility] Last Admin: 12/30/18 10:40 Dose: 1 mg Heparin Sodium (Porcine) (Heparin) 5,000 units SC Q12 [facility]; Protocol Last Admin: 12/30/18 10:41 Dose: 5,000 units Hydralazine HCl (Apresoline) 10 mg IVP Q6 PRN PRN Reason: Systolic Blood Pressure Last Admin: 12/27/18 06:48 Dose: 10 mg Hydralazine HCl (Apresoline) 50 mg PO Q8H [facility] Last Admin: 12/30/18 05:25 Dose: Not Given Dextrose (Dextrose 5% In Water 1000 Ml) 1,000 mls @ 0 mls/hr IV .Q0M PRN; Protocol PRN Reason: Hypoglycemia Protocol Meropenem 250 mg/ Sodium (Chloride) 100 mls @ 100 mls/hr IVPB Q12 [facility]; Protocol Stop: 12/31/18 22:01 Last Admin: 12/30/18 10:41 Dose: 100 mls/hr Insulin Human Regular (Humulin R Low) 0 units SC ACHS [facility]; Protocol Last Admin: 12/29/18 21:53 Dose: Not Given Methylprednisolone (Solu-Medrol) 40 mg IVP Q12 [facility] Last Admin: 12/30/18 10:41 Dose: 40 mg Pantoprazole Sodium (Protonix Ec Tab) 40 mg PO 0600 [facility] Last Admin: 12/30/18 05:26 Dose: 40 mg Sevelamer HCl (Renagel) 800 mg PO WM [facility] Last Admin: 12/30/18 08:41 Dose: Not Given Torsemide (Demadex) 20 mg PO DAILY [facility] Physical Exam - Constitutional Appears: Non-toxic, No Acute Distress - Head Exam Head Exam: NORMAL INSPECTION - Eye Exam Eye Exam: Normal appearance - ENT Exam ENT Exam: Mucous Membranes Moist - Neck Exam Neck exam: Positive for: Full Rom - Respiratory Exam Respiratory Exam: Wheezes, NORMAL BREATHING PATTERN - Cardiovascular Exam Cardiovascular Exam: REGULAR RHYTHM, +S1, +S2 - GI/Abdominal Exam GI & Abdominal Exam: Normal Bowel Sounds, Soft - Extremities Exam Extremities exam: Positive for: normal inspection - Neurological Exam Neurological exam: Alert, Oriented x3 - Psychiatric Exam Psychiatric exam: Normal Affect - Skin Skin Exam: Normal Color, Warm Results - Vital Signs Recent Vital Signs: Last Vital Signs Temp 98.6 F 12/30/18 11:21 Pulse 78 12/30/18 11:21 Resp 18 12/30/18 11:21 BP 161/63 H 12/30/18 11:21 Pulse Ox 98 12/30/18 08:13 - Labs Result Diagrams: 12/30/18 05:45 12/30/18 05:45 Labs: Laboratory Results - last 24 hr 12/28/18 12/29/18 12/29/18 14:30 12:05 17:17 WBC RBC Hgb Hct MCV MCH MCHC RDW Plt Count MPV D-Dimer, Quantitative 516 H Sodium Potassium Chloride Carbon Dioxide Anion Gap BUN Creatinine Est GFR ( Amer) Est GFR (Non-Af Amer) POC Glucose (mg/dL) 186 H Random Glucose Calcium Phosphorus Total Bilirubin AST ALT Alkaline Phosphatase Total Protein Albumin Globulin Albumin/Globulin Ratio Ur Creatinine 24 Hour 0.64 Blood Type Antibody Screen Crossmatch BBK History Checked 12/29/18 12/30/18 12/30/18 20:59 05:45 05:45 WBC 7.6 RBC 2.63 L Hgb 8.0 L Hct 24.6 L MCV 93.5 MCH 30.4 MCHC 32.5 RDW 14.9 H Plt Count 320 MPV 10.0 D-Dimer, Quantitative Sodium 136 Potassium 4.3 Chloride 107 Carbon Dioxide 25 Anion Gap 8 L BUN 47 H Creatinine 3.4 H Est GFR ( Amer) 16 Est GFR (Non-Af Amer) 13 POC Glucose (mg/dL) 241 H Random Glucose 70 Calcium 8.2 L Phosphorus 5.5 H Total Bilirubin 0.2 AST 36 D ALT 33 Alkaline Phosphatase 281 H Total Protein 5.8 Albumin 2.7 L Globulin 3.1 Albumin/Globulin Ratio 0.9 L Ur Creatinine 24 Hour Blood Type Antibody Screen Crossmatch BBK History Checked 12/30/18 12/30/18 12/30/18 07:53 08:00 08:23 WBC RBC Hgb Hct MCV MCH MCHC RDW Plt Count MPV D-Dimer, Quantitative Sodium Potassium Chloride Carbon Dioxide Anion Gap BUN Creatinine Est GFR ( Amer) Est GFR (Non-Af Amer) POC Glucose (mg/dL) 61 L 108 Random Glucose Calcium Phosphorus Total Bilirubin AST ALT Alkaline Phosphatase Total Protein Albumin Globulin Albumin/Globulin Ratio Ur Creatinine 24 Hour Blood Type O POSITIVE Antibody Screen Negative Crossmatch See Detail BBK History Checked Patient has bt 12/30/18 11:35 WBC RBC Hgb Hct MCV MCH MCHC RDW Plt Count MPV D-Dimer, Quantitative Sodium Potassium Chloride Carbon Dioxide Anion Gap BUN Creatinine Est GFR ( Amer) Est GFR (Non-Af Amer) POC Glucose (mg/dL) 142 H Random Glucose Calcium Phosphorus Total Bilirubin AST ALT Alkaline Phosphatase Total Protein Albumin Globulin Albumin/Globulin Ratio Ur Creatinine 24 Hour Blood Type Antibody Screen Crossmatch BBK History Checked - Imaging and Cardiology CT scan - chest Status: Image reviewed by me, Report reviewed by me Assessment & Plan - Assessment and Plan (Free Text) Assessment: 68yo female with likely an Asthma exacerbation, and mosaic pattern on chest CT Asthma Exacerbation Mosaic Pattern on CT chest, rule out ILD - currently afebrile, HD stable, comfortable in NAD, on room air sat 95%, on exam has diffuse end exp wheezing, not in any distress - subjectively patient denies any resp complaints - CT chest reviewed, mosaic pattern attenuation, with bronchiectasis, which is really non specific, has broad differential diagnosis including but not limited to small airway disease (asthma, bronchiectasis, bronchiolitis, etc), vascular disorders, ground glass opacities. In this case most likely it is due to component of small airway disease, especially given the bronchiectasis, and likely undiagnosed asthma Recommend: - supp o2 only as needed, goal sat 90% - Duonebs PRN - Pulmicort 0.25mg BID - Solumedrol 40mg IV BID - outpatient PFTs, complete - follow up renal - GI ppx - DVT ppx - Pulmonary will continue to follow
--- NOTE | 2018-12-30 13:40 | RAD ---
Date of service: 12/30/2018 HISTORY: fu COMPARISON: 12/27/2018 FINDINGS: LUNGS: No active pulmonary disease. PLEURA: Elevated right hemidiaphragm common nonspecific. No pleural effusion or pneumothorax. CARDIOVASCULAR: There is atherosclerotic calcification of the thoracic aorta. Normal heart size. No congestive change. Right PICC catheter noted terminating at the level of the right atrium. OSSEOUS STRUCTURES: No significant abnormalities. VISUALIZED UPPER ABDOMEN: Normal. OTHER FINDINGS: None. IMPRESSION: New right PICC catheter terminates at the level of the right atrium. Nonspecific elevation of the right hemidiaphragm. No acute infiltrate.
--- NOTE | 2018-12-30 13:42 | CP.PCM.PN ---
<Marcelo Cole - Last Filed: 12/30/18 13:39> Subjective - Date & Time of Evaluation Date of Evaluation: 12/30/18 Time of Evaluation: 08:00 - Subjective Subjective: Marcelo Cole PGY1 Medicine Progress Note for Dr. Castanon Patient was seen and examined at bedside this morning. Vital signs stable, however, BP was 161/79. fractionating still operator was used at bedside. Patient still complains of lower extremity pain. She was explained why she had a PICC line inserted yesterday. She denies cp, sob, abdominal pain, bowel/bladder changes. No adverse overnight events. A full 12 point ROS was conducted and unremarkable except as stated above. Objective - Vital Signs/Intake and Output Vital Signs (last 24 hours): Temp Pulse Resp BP Pulse Ox 97.8 F 74 21 172/78 H 98 12/30/18 11:54 12/30/18 11:54 12/30/18 11:54 12/30/18 11:54 12/30/18 08:13 Intake and Output: 12/30/18 12/30/18 06:59 18:59 Intake Total 720 0 Balance 720 0 - Medications Medications: Current Medications Albuterol/Ipratropium (Duoneb 3 Mg/0.5 Mg (3 Ml) Ud) 3 ml IH Q6H [facility] [place] Last Admin: 12/30/18 07:48 Dose: 3 ml Albuterol/Ipratropium (Duoneb 3 Mg/0.5 Mg (3 Ml) Ud) 3 ml IH Q2H PRN PRN Reason: Shortness of Breath Last Admin: 12/30/18 12:04 Dose: 3 ml Amlodipine Besylate (Norvasc) 10 mg PO DAILY [facility] [place] Last Admin: 12/30/18 10:40 Dose: 10 mg Arformoterol Tartrate (Brovana) 15 mcg IH [id number] [facility] [place] Atorvastatin Calcium (Lipitor) 40 mg PO DAILY [facility] [place] Last Admin: 12/30/18 10:39 Dose: 40 mg Budesonide (Pulmicort Respules) 0.5 mg IH [id number] [facility] [place] Carvedilol (Coreg) 25 mg PO Q12H [facility] [place] Clonidine HCl (Catapres Tts1 0.1 Mg/24 Hr) 1 patch TD QWK [facility] [place] Last Admin: 12/25/18 10:47 Dose: 1 patch Dextrose (Dextrose 50% Inj) 0 ml IV STAT PRN; Protocol PRN Reason: Hypoglycemia Protocol Ergocalciferol (Drisdol 50,000 Intl Units Cap) 1 cap PO Q7D [facility] [place] Last Admin: 12/27/18 12:02 Dose: 1 cap Glimepiride (Amaryl) 1 mg PO DAILY [facility] [place] Last Admin: 12/30/18 10:40 Dose: 1 mg Heparin Sodium (Porcine) (Heparin) 5,000 units SC Q12 TL; Protocol Last Admin: 12/30/18 10:41 Dose: 5,000 units Hydralazine HCl (Apresoline) 10 mg IVP Q6 PRN PRN Reason: Systolic Blood Pressure Last Admin: 12/27/18 06:48 Dose: 10 mg Hydralazine HCl (Apresoline) 50 mg PO Q8H [facility] [place] Last Admin: 12/30/18 05:25 Dose: Not Given Dextrose (Dextrose 5% In Water 1000 Ml) 1,000 mls @ 0 mls/hr IV .Q0M PRN; Protocol PRN Reason: Hypoglycemia Protocol Meropenem 250 mg/ Sodium (Chloride) 100 mls @ 100 mls/hr IVPB Q12 TL; Protocol Stop: 12/31/18 22:01 Last Admin: 12/30/18 10:41 Dose: 100 mls/hr Insulin Human Regular (Humulin R Low) 0 units SC ACHS [facility] [place]; Protocol Last Admin: 12/29/18 21:53 Dose: Not Given Methylprednisolone (Solu-Medrol) 40 mg IVP Q12 [facility] [place] Last Admin: 12/30/18 10:41 Dose: 40 mg Pantoprazole Sodium (Protonix Ec Tab) 40 mg PO 0600 [facility] [place] Last Admin: 12/30/18 05:26 Dose: 40 mg Sevelamer HCl (Renagel) 800 mg PO WM [facility] [place] Last Admin: 12/30/18 08:41 Dose: Not Given Torsemide (Demadex) 20 mg PO DAILY [facility] [place] - Labs Labs: 12/30/18 05:45 12/30/18 05:45 PT 13.4 SECONDS (9.4-12.5) H 12/23/18 10:56 INR 1.19 12/23/18 10:56 APTT 35.0 Seconds (26.9-38.3) 12/23/18 10:56 - Constitutional Appears: No Acute Distress - Head Exam Head Exam: ATRAUMATIC, NORMAL INSPECTION, NORMOCEPHALIC - Eye Exam Eye Exam: EOMI, Normal appearance - ENT Exam ENT Exam: Mucous Membranes Moist - Respiratory Exam Respiratory Exam: Wheezes (diffuse bilateral wheezing), NORMAL BREATHING PATTE RN. absent: Rales, Rhonchi, Respiratory Distress - Cardiovascular Exam Cardiovascular Exam: REGULAR RHYTHM, +S1, +S2 - GI/Abdominal Exam GI & Abdominal Exam: Soft, Normal Bowel Sounds. absent: Guarding, Rigid, Tenderness, Rebound - Extremities Exam Extremities Exam: Normal Capillary Refill, Tenderness (tenderness of palpation of the bilateral lower ext. ). absent: Calf Tenderness Additional comments: +2 pitting edema of bilateral lower ext. - Neurological Exam Neurological Exam: Alert, Awake, CN II-XII Intact, Oriented x3 - Psychiatric Exam Psychiatric exam: Normal Affect, Normal Mood - Skin Skin Exam: Dry, Intact, Normal Color, Warm Assessment and Plan - Assessment and Plan (Free Text) Assessment: Patient is a 68 y/o turkmen speaking F with PMHx of CKD, DM2, HTN, HLD, anemia who presented to ED for change in mental status, lethargy and weakness. Admitted for toxic metabolic encephalopathy 2/2 ESBL UTI. Also found to have Uncontrolled HTN and shortness of breath 2/2 Possible ILD. Plan: Toxic Metabolic Encephalopathy 2/2 ESBL UTI - improved - c/w merrem (Day 7) for IV antibiotics - s/p IR guided right arm PICC line in place (12/29) - Leukocytosis resolved. - U/A revealing (+) nitrate. Urine cultures growing E. Coli, B-hemolytic group B strep - Blood cx were negative x2 - c/w contact isolation - Hx ESBL and E. Coli resistant to multiple organisms - ID is on board (Dr. Quiros). Recs appreciated. Shortness of Breath 2/2 Possible ILD - Given patient is still wheezing on exam, started on methylprednisolone 40mg IVP q12 - Pulm was consulted (Dr. Morton). Follow up recommendations. - CT Chest (12/29): no acute findings. However, stable pulmonary parenchymal fi ndings c/w chronic interstitial lung disease, mosaic pattern. - V/Q scan (12/29): low probability for PE - D-dimer elevated - started on brovana and pulmicort - torsemide 20mg daily - c/w duoneb prn HTN - uncontrolled - amlodipine 10mg PO daily, carvedilol 25mg PO q12, hydralazine 50mg PO q8, and clonidine - lasix was discontinued and torsemide was increased to 20mg daily as per nephro - Medications adjusted as per nephrology (Dr. Santiago) - Hx of HTN JOSUE on Stage IV CKD - Advanced Diabetic Nephropathy - Cr initially 3.0; uptrending to 3.4 - Biopsy results revealed advanced diabetic nephropathy. - continue home renvela and ergocalciferol - c/w strict ins/outs - Nephro following (Dr. Santiago). Recs appreciated. Anemia of CKD - Hgb stable at this time - Hgb was 7.8 on admission, s/p x1 pRBC. Hgb improved. - continue with IV iron - Stool guaiac was positive - GI following, and recommended outpatient endoscopic workup Hx DM2 - Continue home glimepiride - ISS - Accuchecks Hx HLD - continue atorvastatin DVT/GI PPx: Hep SC/protonix Diet: HHD Dispo: Continue to monitor patient on the floor. Follow up further recommendations as per Pulmonology. Case was discussed and reviewed with Attending Physician, Dr. Castanon. <Brisa Castanon - Last Filed: 12/31/18 13:41> Objective - Vital Signs/Intake and Output Vital Signs (last 24 hours): Temp Pulse Resp BP Pulse Ox 98.2 F 76 22 164/76 H 96 12/31/18 06:00 12/31/18 12:25 12/31/18 06:00 12/31/18 12:25 12/31/18 06:00 Intake and Output: 12/31/18 12/31/18 06:59 18:59 Intake Total 240 Output Total 200 Balance 40 - Medications Medications: Current Medications Albuterol/Ipratropium (Duoneb 3 Mg/0.5 Mg (3 Ml) Ud) 3 ml IH [id number] TL Albuterol/Ipratropium (Duoneb 3 Mg/0.5 Mg (3 Ml) Ud) 3 ml IH RQ2 PRN PRN Reason: Shortness of Breath Amlodipine Besylate (Norvasc) 10 mg PO DAILY TL Last Admin: 12/31/18 10:32 Dose: 10 mg Arformoterol Tartrate (Brovana) 15 mcg IH [id number] [facility] [place] Last Admin: 12/31/18 08:00 Dose: 15 mcg Atorvastatin Calcium (Lipitor) 40 mg PO DAILY [facility] [place] Last Admin: 12/31/18 10:31 Dose: 40 mg Budesonide (Pulmicort Respules) 0.5 mg IH [id number] [facility] [place] Last Admin: 12/31/18 08:02 Dose: 0.5 mg Carvedilol (Coreg) 25 mg PO Q12H [facility] [place] Last Admin: 12/31/18 07:56 Dose: 25 mg Clonidine HCl (Catapres Tts1 0.1 Mg/24 Hr) 1 patch TD QWK [facility] [place] Last Admin: 12/31/18 11:01 Dose: 1 patch Dextrose (Dextrose 50% Inj) 0 ml IV STAT PRN; Protocol PRN Reason: Hypoglycemia Protocol Ergocalciferol (Drisdol 50,000 Intl Units Cap) 1 cap PO Q7D [facility] [place] Last Admin: 12/27/18 12:02 Dose: 1 cap Glimepiride (Amaryl) 1 mg PO DAILY [facility] [place] Last Admin: 12/31/18 10:31 Dose: 1 mg Heparin Sodium (Porcine) (Heparin) 5,000 units SC Q12 [facility] [place]; Protocol Last Admin: 12/31/18 10:27 Dose: 5,000 units Hydralazine HCl (Apresoline) 10 mg IVP Q6 PRN PRN Reason: Systolic Blood Pressure Last Admin: 12/27/18 06:48 Dose: 10 mg Hydralazine HCl (Apresoline) 100 mg PO Q8H [facility] [place] Last Admin: 12/31/18 12:25 Dose: 100 mg Dextrose (Dextrose 5% In Water 1000 Ml) 1,000 mls @ 0 mls/hr IV .Q0M PRN; Protocol PRN Reason: Hypoglycemia Protocol Meropenem 250 mg/ Sodium (Chloride) 100 mls @ 100 mls/hr IVPB Q12 [facility] [place]; Protocol Stop: 12/31/18 22:01 Last Admin: 12/31/18 10:33 Dose: 100 mls/hr Insulin Human Regular (Humulin R) 4 units SC AC [facility] [place] Last Admin: 12/31/18 12:26 Dose: 4 units Insulin Human Regular (Humulin R Med) 0 units SC ACHS [facility] [place]; Protocol Last Admin: 12/31/18 12:34 Dose: 8 units Methylprednisolone (Solu-Medrol) 40 mg IVP Q12 [facility] [place] Last Admin: 12/31/18 10:30 Dose: 40 mg Pantoprazole Sodium (Protonix Ec Tab) 40 mg PO 0600 [facility] [place] Last Admin: 12/31/18 05:40 Dose: 40 mg Sevelamer HCl (Renagel) 800 mg PO WM [facility] [place] Last Admin: 12/31/18 12:34 Dose: 800 mg Torsemide (Demadex) 20 mg PO DAILY [facility] [place] Last Admin: 12/31/18 10:31 Dose: 20 mg - Labs Labs: 12/31/18 05:50 12/31/18 05:50 PT 13.4 SECONDS (9.4-12.5) H 12/23/18 10:56 INR 1.19 12/23/18 10:56 APTT 35.0 Seconds (26.9-38.3) 12/23/18 10:56 Attending/Attestation - Attestation I have personally seen and examined this patient.: Yes I have fully participated in the care of the patient.: Yes I have reviewed all pertinent clinical information, including history, physical exam and plan: Yes Notes (Text): Patient seen and examined by me with resident at 10:05AM on 12/30/18. Case including HPI, physical exam, and assessment and plan discussed with resident. Agree with above with following additions/corrections. Patient is a 68-year-old female with past medical history significant for chronic kidney disease, type 2 diabetes, hypertension, hyperlipidemia, and anemia that presented to the emergency room for change in mental status, lethargy, and weakness. gas operation manager # [id number] used for translation. Patient states she is feeling ok. States shortness of breath is a little better and she believes she has it secondary to a "cold." She denies any history of asthma. Patient denies chest pain or palpitations. No fevers or chills. No headaches or dizziness. No dysuria or burning with urination. No diarrhea. No nausea, vomiting, or abdominal pain. Patient complains of bilateral lower extremity pain secondary to edema. Physical exam: General: Awake and alert lying in bed in no acute distress HEENT: Normocephalic, atraumatic. Extraocular muscles intact, pupils equal and reactive, no scleral icterus. Oropharynx is pink and moist. No pharyngeal erythema or exudate appreciated. Neck is supple. Cardiovascular: Regular rhythm. Normal S1 and S2. No murmurs, rubs, or gallops appreciated Pulmonary: Using abdominal accessory muscles ot breath. Decreased breath sounds. Mild expiratory wheezing. No rhonchi or rales appreciated. Gastrointestinal: Soft, nondistended. Nontender. Positive bowel sounds all 4 quadrants. No guarding. Musculoskeletal: Moves all extremities. No calf tenderness. Bilateral lower extremity pitting edema. Central nervous system: AAOx3. Dermatologic: Skin warm and dry. Assessment and plan: Patient is a 68-year-old female with past medical history significant for chronic kidney disease, type 2 diabetes, hypertension, hyperlipidemia, and anemia that presented to the emergency room for change in mental status, lethargy, and weakness. 1. UTI. Urine culture positive for ESBL and Beta hemolytic Strep Group B. Continue Merrem day #7. ID following, recommendations appreciated. Patient afebrile and no leukocytosis. Blood cultures with no growth. 2. Toxic metabolic encephalopathy. Likey secondary to UTI. Appears to be resolved. Neurology following, recommendations appreciated. Head CT per radiologist showed no acute intracranial pathology identified. Brain MRI per radiologist showed no acute intracranial findings. Continue supportive care. 3. JOSUE on CKD. Will likely need dialysis in the near future. Creatinine uptrending. Nephrology following, recommendations appreciated. Patient does not what AV fistula currently. Vein mapping completed. Continue Renagel. Continue Torsemide. Continue Lasix. Chest xray showed no active disease. 4. Dyspnea. Chest xray showed no active disease. Continue nebulizer treatments. Continue Solu-medrol. Chest CT per radiologist showed no acute findings; stable pulmonary parenchymal findings including scarring/postoperative changes right lung; chronic interstitial lung disease, mosaic pattern; no suspicious pulmonary nodules, masses, or infiltrates. Pulmonary consulted, follow up recommendation s. 5. Essential hypertension. Continue Norvasc, Coreg, Clonidine patch, and hydralazine 6. DM2. Continue insulin sliding scale, Continue amaryl. Continue to monitor accuchecks. 7. Hyperlipidemia. Continue Lipitor. 8. Anemia of chronic disease. FOBT+. S/P 1 unit PRBC on 12/24/18. GI following, recommendations appreciated. No plans for endoscopic procedure for now. Continue IV iron. H&H stable, continue to monitor. Weekly [address] Stenographer following, recommendations appreciated. 9. GI/DVT prophylaxis. Protonix/heparin 10. Patient is a full code. Case was discussed in detail with the patient regarding current diagnosis and treatment plan. All questions answered.
--- NOTE | 2018-12-30 16:49 | CP.PCM.PN ---
Subjective - Date & Time of Evaluation Date of Evaluation: 12/30/18 Time of Evaluation: 10:05 - Subjective Subjective: No fevers, comfortable in bed. Objective - Vital Signs/Intake and Output Vital Signs (last 24 hours): Temp Pulse Resp BP Pulse Ox 98 F 78 20 161/60 H 99 12/29/18 08:03 12/29/18 08:03 12/29/18 08:03 12/29/18 10:25 12/29/18 08:03 Intake and Output: 12/29/18 12/29/18 06:59 18:59 Intake Total 240 Output Total 1350 Balance -1110 - Medications Medications: Current Medications Albuterol/Ipratropium (Duoneb 3 Mg/0.5 Mg (3 Ml) Ud) 3 ml IH Q6H [facility] Last Admin: 12/29/18 11:14 Dose: 3 ml Albuterol/Ipratropium (Duoneb 3 Mg/0.5 Mg (3 Ml) Ud) 3 ml IH Q2H PRN PRN Reason: Shortness of Breath Amlodipine Besylate (Norvasc) 10 mg PO DAILY [facility] Last Admin: 12/29/18 10:25 Dose: 10 mg Atorvastatin Calcium (Lipitor) 40 mg PO DAILY [facility] Last Admin: 12/29/18 10:26 Dose: 40 mg Carvedilol (Coreg) 12.5 mg PO BID [facility] Last Admin: 12/29/18 10:27 Dose: 12.5 mg Clonidine HCl (Catapres Tts1 0.1 Mg/24 Hr) 1 patch TD QWK [facility] Last Admin: 12/25/18 10:47 Dose: 1 patch Dextrose (Dextrose 50% Inj) 0 ml IV STAT PRN; Protocol PRN Reason: Hypoglycemia Protocol Ergocalciferol (Drisdol 50,000 Intl Units Cap) 1 cap PO Q7D [facility] Last Admin: 12/27/18 12:02 Dose: 1 cap Furosemide (Lasix) 80 mg PO BID [facility] Last Admin: 12/29/18 10:25 Dose: 80 mg Glimepiride (Amaryl) 1 mg PO DAILY [facility] Last Admin: 12/29/18 10:26 Dose: 1 mg Heparin Sodium (Porcine) (Heparin) 5,000 units SC Q12 TL; Protocol Last Admin: 12/29/18 10:30 Dose: 5,000 units Hydralazine HCl (Apresoline) 10 mg IVP Q6 PRN PRN Reason: Systolic Blood Pressure Last Admin: 12/27/18 06:48 Dose: 10 mg Hydralazine HCl (Apresoline) 50 mg PO QID [facility] Last Admin: 12/29/18 10:27 Dose: 50 mg Dextrose (Dextrose 5% In Water 1000 Ml) 1,000 mls @ 0 mls/hr IV .Q0M PRN; Protocol PRN Reason: Hypoglycemia Protocol Meropenem 250 mg/ Sodium (Chloride) 100 mls @ 100 mls/hr IVPB Q12 [facility]; Protocol Stop: 12/31/18 22:01 Last Admin: 12/29/18 10:27 Dose: 100 mls/hr Iron Sucrose 100 mg/ Sodium (Chloride) 105 mls @ 210 mls/hr IVPB DAILY [facility] Stop: 12/30/18 10:29 Last Admin: 12/29/18 10:28 Dose: 210 mls/hr Insulin Human Regular (Humulin R Low) 0 units SC ACHS [facility]; Protocol Last Admin: 12/29/18 13:34 Dose: Not Given Pantoprazole Sodium (Protonix Ec Tab) 40 mg PO 0600 [facility] Last Admin: 12/29/18 05:35 Dose: 40 mg Prednisone (Prednisone Tab) 10 mg PO DAILY [facility] Last Admin: 12/29/18 10:26 Dose: 10 mg Sevelamer HCl (Renagel) 800 mg PO WM [facility] Last Admin: 12/29/18 13:35 Dose: Not Given Torsemide (Demadex) 10 mg PO DAILY [facility] Last Admin: 12/29/18 10:27 Dose: 10 mg - Labs Labs: 12/29/18 11:00 12/29/18 11:00 PT 13.4 SECONDS (9.4-12.5) H 12/23/18 10:56 INR 1.19 12/23/18 10:56 APTT 35.0 Seconds (26.9-38.3) 12/23/18 10:56 - Constitutional Appears: Chronically Ill - Head Exam Head Exam: NORMAL INSPECTION - Respiratory Exam Respiratory Exam: Decreased Breath Sounds - Cardiovascular Exam Cardiovascular Exam: +S1, +S2 - GI/Abdominal Exam GI & Abdominal Exam: Soft. absent: Tenderness Assessment and Plan - Assessment and Plan (Free Text) Plan: Asssessment systemic inflammatory response syndrome, consider sepsis due to UTI with Group B Strep and ESBL E. coli history of right pyelonephritis with ESBL E. coli acute renal failure history of herpes zoster on the left chest and shoulder areas history of sepsis secondary to left otomastoiditis history of Methicillin-resistant coagulase negative staph and Enterococci bacteremia HTN DM obesity with BMI 30 chronic renal failure Plan continue renally-adjusted Merrem day 7 for 7-10 days and will continue to monitor clinically discussed with Dr. Evangelista previously
[2018-12-30] MEDS: Arformoterol 15 mcg/2 ml Inh Sol IH SCH (19:40)
[2018-12-31] MEDS: Albuterol-Ipratrop 3 mg / 0.5 (3 ml) UD IH SCH ×4 (02:19→20:40)
[2018-12-31] MEDS: Pantoprazole 40 mg EC Tab PO SCH (05:40)
[2018-12-31 06:36] LABS: MEAN CELL VOLUME 92.4 fl (80.0-105.0); MEAN CORPUSCULAR HEMOGLOBIN 30.4 pg (25.0-35.0); MEAN CORPUSCULAR HGB CONC 32.9 g/dl (31.0-37.0); MEAN PLATELET VOLUME 10.2 fl (7.0-11.0); RBC 3.29 10^6/uL (3.5-6.1); RED CELL DISTRIBUTION WIDTH 14.8 % (11.5-14.5); WHITE BLOOD COUNT 9.2 10^3/uL (4.5-11.0)
[2018-12-31 07:43] LABS: ALB/GLOB RATIO 0.9 (1.1-1.8); CALCIUM 8.3 mg/dL (8.4-10.5)
[2018-12-31] MEDS: Arformoterol 15 mcg/2 ml Inh Sol IH SCH ×2 (08:00→20:40)
[2018-12-31] MEDS: Budesonide 0.5 mg/2 ml Inhal Susp UD IH SCH ×2 (08:02→20:40)
[2018-12-31] MEDS: Insulin Reg-LOW-Coverage SC SCH (08:20)
--- NOTE | 2018-12-31 08:37 | CP.PCM.PN ---
<Marcelo Cole - Last Filed: 12/31/18 13:25> Subjective - Date & Time of Evaluation Date of Evaluation: 12/31/18 Time of Evaluation: 08:00 - Subjective Subjective: Marcelo Cole PGY1 Medicine Progress Note for Dr. Castanon Patient seen and examined at bedside this morning. BP 164/76, otherwise Vitals stable. No adverse overnight events. Kinyarwanda machine installer was used for translation (ID#[id number]). Patient denies cp, sob, abdominal pain, n/v/d, fever, chills. Family member was also present at bedside. Family and patient said that they want to hold off on HD for now since patient wants to be discharged and discuss with her PMD prior to pursuing dialysis. Patient was explained the risks of waiting. A full 12 point ROS was conducted and unremarkable except as stated above. Objective - Vital Signs/Intake and Output Vital Signs (last 24 hours): Temp Pulse Resp BP Pulse Ox 98.2 F 78 22 164/76 H 96 12/31/18 06:00 12/31/18 07:56 12/31/18 06:00 12/31/18 06:00 12/31/18 06:00 Intake and Output: 12/31/18 12/31/18 06:59 18:59 Intake Total 240 Output Total 200 Balance 40 - Medications Medications: Current Medications Albuterol/Ipratropium (Duoneb 3 Mg/0.5 Mg (3 Ml) Ud) 3 ml IH Q6H [facility] Last Admin: 12/31/18 08:00 Dose: 3 ml Albuterol/Ipratropium (Duoneb 3 Mg/0.5 Mg (3 Ml) Ud) 3 ml IH Q2H PRN PRN Reason: Shortness of Breath Last Admin: 12/30/18 12:04 Dose: 3 ml Amlodipine Besylate (Norvasc) 10 mg PO DAILY [facility] Last Admin: 12/30/18 10:40 Dose: 10 mg Arformoterol Tartrate (Brovana) 15 mcg IH [id number] [facility] Last Admin: 12/31/18 08:00 Dose: 15 mcg Atorvastatin Calcium (Lipitor) 40 mg PO DAILY [facility] Last Admin: 12/30/18 10:39 Dose: 40 mg Budesonide (Pulmicort Respules) 0.5 mg IH [id number] [facility] Last Admin: 12/31/18 08:02 Dose: 0.5 mg Carvedilol (Coreg) 25 mg PO Q12H [facility] Last Admin: 12/31/18 07:56 Dose: 25 mg Clonidine HCl (Catapres Tts1 0.1 Mg/24 Hr) 1 patch TD QWK [facility] Last Admin: 12/25/18 10:47 Dose: 1 patch Dextrose (Dextrose 50% Inj) 0 ml IV STAT PRN; Protocol PRN Reason: Hypoglycemia Protocol Ergocalciferol (Drisdol 50,000 Intl Units Cap) 1 cap PO Q7D [facility] Last Admin: 12/27/18 12:02 Dose: 1 cap Glimepiride (Amaryl) 1 mg PO DAILY [facility] Last Admin: 12/30/18 10:40 Dose: 1 mg Heparin Sodium (Porcine) (Heparin) 5,000 units SC Q12 [facility]; Protocol Last Admin: 12/30/18 21:58 Dose: 5,000 units Hydralazine HCl (Apresoline) 10 mg IVP Q6 PRN PRN Reason: Systolic Blood Pressure Last Admin: 12/27/18 06:48 Dose: 10 mg Hydralazine HCl (Apresoline) 50 mg PO Q8H [facility] Last Admin: 12/31/18 05:39 Dose: 50 mg Dextrose (Dextrose 5% In Water 1000 Ml) 1,000 mls @ 0 mls/hr IV .Q0M PRN; Protocol PRN Reason: Hypoglycemia Protocol Meropenem 250 mg/ Sodium (Chloride) 100 mls @ 100 mls/hr IVPB Q12 [facility]; Protocol Stop: 12/31/18 22:01 Last Admin: 12/30/18 22:01 Dose: 100 mls/hr Insulin Human Regular (Humulin R Low) 0 units SC ACHS [facility]; Protocol Last Admin: 12/31/18 08:20 Dose: 4 unit Methylprednisolone (Solu-Medrol) 40 mg IVP Q12 [facility] Last Admin: 12/30/18 22:01 Dose: 40 mg Pantoprazole Sodium (Protonix Ec Tab) 40 mg PO 0600 [facility] Last Admin: 12/31/18 05:40 Dose: 40 mg Sevelamer HCl (Renagel) 800 mg PO WM [facility] Last Admin: 12/31/18 08:20 Dose: 800 mg Torsemide (Demadex) 20 mg PO DAILY [facility] Last Admin: 12/30/18 17:50 Dose: 20 mg - Labs Labs: 12/31/18 05:50 12/31/18 05:50 PT 13.4 SECONDS (9.4-12.5) H 12/23/18 10:56 INR 1.19 12/23/18 10:56 APTT 35.0 Seconds (26.9-38.3) 12/23/18 10:56 - Constitutional Appears: No Acute Distress - Head Exam Head Exam: ATRAUMATIC, NORMAL INSPECTION, NORMOCEPHALIC - Eye Exam Eye Exam: Normal appearance - ENT Exam ENT Exam: Mucous Membranes Moist - Respiratory Exam Respiratory Exam: Wheezes (b/l wheezing). absent: Rales, Rhonchi, Respiratory Distress, Stridor Additional comments: Patient uses abdominal muscles for breathing. - Cardiovascular Exam Cardiovascular Exam: RRR, +S1, +S2 - GI/Abdominal Exam GI & Abdominal Exam: Soft, Normal Bowel Sounds. absent: Tenderness - Extremities Exam Extremities Exam: Full ROM, Normal Capillary Refill, Tenderness (tenderness to palpation of LE b/l). absent: Calf Tenderness Additional comments: Mild +1 pitting edema of b/l LE - Neurological Exam Neurological Exam: Alert, Awake, CN II-XII Intact, Oriented x3 - Psychiatric Exam Psychiatric exam: Normal Affect, Normal Mood - Skin Skin Exam: Dry, Intact, Normal Color, Warm Assessment and Plan - Assessment and Plan (Free Text) Assessment: Patient is a 68 y/o kyrgyz speaking F with PMHx of CKD, DM2, HTN, HLD, anemia who presented to ED for change in mental status, lethargy and weakness. Admitted for toxic metabolic encephalopathy 2/2 ESBL UTI. Also found to have Uncontrolled HTN and shortness of breath 2/2 undiagnosed Asthma. Plan: Toxic Metabolic Encephalopathy 2/2 ESBL UTI - improved - c/w merrem (Day 8 of 10) for IV antibiotics - ID is on consult (Dr. Quiros). Recs appreciated. - s/p IR guided right arm PICC line in place (12/29) - Leukocytosis resolved. Afebrile. - c/w contact isolation - Hx ESBL and E. Coli resistant to multiple organisms Shortness of Breath 2/2 Undiagnosed Asthma - c/w methylprednisolone 40mg IVP q12; will taper steroids when wheezing improves - c/w pulmicort, duonebs, torsemide - Pulm was consulted (Dr. Morton). Recs were appreciated. CT findings sug gestive of small airway disease, likely undiagnosed asthma. Patient needs outpatient PFT evaluation. - Patient is still wheezing on exam with notable abdominal breathing - CT Chest (12/29): no acute findings. Possible chronic interstitial lung disease, mosaic pattern. HTN - uncontrolled - c/w amlodipine 10mg PO daily, carvedilol 25mg PO q12, hydralazine 100mg PO q8, and clonidine - Medications adjusted as per nephrology (Dr. Santiago) - Hx of HTN JOSUE on Stage IV CKD - Advanced Diabetic Nephropathy - Cr initially 3.0; now Cr is 3.4 - d/w patient and family about HD; they want to hold off on HD for now - Biopsy: advanced diabetic nephropathy. - continue home renvela and ergocalciferol - Nephro following (Dr. Santiago). Recs appreciated. Anemia of CKD - Heme (Dr. Vernon) gave x1 unit pRBC (12/30); Hgb now 10; stable - c/w IV iron - Hgb was 7.8 on admission, s/p x1 pRBC on admission - GI was on consult (Dr. Narayan) and recommended outpatient endoscopic workup Hx DM2 - Hyperglycemia 2/2 steroid use - Continue glimepiride - ISS (med) - Accuchecks Hx HLD - continue atorvastatin DVT/GI PPx: Hep SC/protonix Diet: CCD Dispo: Continue to monitor patient on the floor. Patient is still wheezing on exam with abdominal muscle use. Anticipate discharge once wheezing improves. Case was discussed and reviewed with Attending Physician, Dr. Castanon. <Brisa Castanon R - Last Filed: 12/31/18 18:08> Objective - Vital Signs/Intake and Output Vital Signs (last 24 hours): Temp Pulse Resp BP Pulse Ox 98.2 F 76 22 164/76 H 96 12/31/18 06:00 12/31/18 12:25 12/31/18 06:00 12/31/18 12:25 12/31/18 06:00 Intake and Output: 12/31/18 12/31/18 06:59 18:59 Intake Total 240 Output Total 200 Balance 40 - Medications Medications: Current Medications Albuterol/Ipratropium (Duoneb 3 Mg/0.5 Mg (3 Ml) Ud) 3 ml IH [id number] [facility] Albuterol/Ipratropium (Duoneb 3 Mg/0.5 Mg (3 Ml) Ud) 3 ml IH RQ2 PRN PRN Reason: Shortness of Breath Amlodipine Besylate (Norvasc) 10 mg PO DAILY [facility] Last Admin: 12/31/18 10:32 Dose: 10 mg Arformoterol Tartrate (Brovana) 15 mcg IH [id number] [facility] Last Admin: 12/31/18 08:00 Dose: 15 mcg Atorvastatin Calcium (Lipitor) 40 mg PO DAILY [facility] Last Admin: 12/31/18 10:31 Dose: 40 mg Budesonide (Pulmicort Respules) 0.5 mg IH [id number] [facility] Last Admin: 12/31/18 08:02 Dose: 0.5 mg Carvedilol (Coreg) 25 mg PO Q12H [facility] Last Admin: 12/31/18 07:56 Dose: 25 mg Clonidine HCl (Catapres Tts1 0.1 Mg/24 Hr) 1 patch TD QWK [facility] Last Admin: 12/31/18 11:01 Dose: 1 patch Dextrose (Dextrose 50% Inj) 0 ml IV STAT PRN; Protocol PRN Reason: Hypoglycemia Protocol Ergocalciferol (Drisdol 50,000 Intl Units Cap) 1 cap PO Q7D [facility] Last Admin: 12/27/18 12:02 Dose: 1 cap Glimepiride (Amaryl) 1 mg PO DAILY [facility] Last Admin: 12/31/18 10:31 Dose: 1 mg Heparin Sodium (Porcine) (Heparin) 5,000 units SC Q12 [facility]; Protocol Last Admin: 12/31/18 10:27 Dose: 5,000 units Hydralazine HCl (Apresoline) 10 mg IVP Q6 PRN PRN Reason: Systolic Blood Pressure Last Admin: 12/27/18 06:48 Dose: 10 mg Hydralazine HCl (Apresoline) 100 mg PO Q8H [facility] Last Admin: 12/31/18 12:25 Dose: 100 mg Dextrose (Dextrose 5% In Water 1000 Ml) 1,000 mls @ 0 mls/hr IV .Q0M PRN; Protocol PRN Reason: Hypoglycemia Protocol Meropenem 250 mg/ Sodium (Chloride) 100 mls @ 100 mls/hr IVPB Q12 [facility]; Protocol Stop: 12/31/18 22:01 Last Admin: 12/31/18 10:33 Dose: 100 mls/hr Insulin Detemir (Levemir) 5 unit SC HS TL Insulin Human Regular (Humulin R Med) 0 units SC ACHS [facility]; Protocol Last Admin: 12/31/18 12:34 Dose: 8 units Insulin Human Regular (Humulin R) 6 units SC AC TL Methylprednisolone (Solu-Medrol) 40 mg IVP Q12 [facility] Last Admin: 12/31/18 10:30 Dose: 40 mg Pantoprazole Sodium (Protonix Ec Tab) 40 mg PO 0600 [facility] Last Admin: 12/31/18 05:40 Dose: 40 mg Sevelamer HCl (Renagel) 800 mg PO WM [facility] Last Admin: 12/31/18 12:34 Dose: 800 mg Torsemide (Demadex) 20 mg PO DAILY [facility] Last Admin: 12/31/18 10:31 Dose: 20 mg - Labs Labs: 12/31/18 05:50 12/31/18 05:50 PT 13.4 SECONDS (9.4-12.5) H 12/23/18 10:56 INR 1.19 12/23/18 10:56 APTT 35.0 Seconds (26.9-38.3) 12/23/18 10:56 Attending/Attestation - Attestation I have personally seen and examined this patient.: Yes I have fully participated in the care of the patient.: Yes I have reviewed all pertinent clinical information, including history, physical exam and plan: Yes Notes (Text): Patient seen and examined by me with resident at 9:40AM on 12/31/18. Case including HPI, physical exam, and assessment and plan discussed with resident. Agree with above with following additions/corrections. Patient is a 68-year-old female with past medical history significant for chronic kidney disease, type 2 diabetes, hypertension, hyperlipidemia, and anemia that presented to the emergency room for change in mental status, lethargy, and weakness. reroller hand # [id number] used for translation. Patient states she feels better today than she did yesterday. Patient's daughter at bedside. Patient states shortness of breath is much better. Per daughter, patient wants to see her primary care doctor before making a decision about starting dialysis. Patient denies chest pain or palpitations. No fevers or chills. No headaches or dizziness. No dysuria or burning with urination. No diarrhea. No nausea, vomiting, or abdominal pain. Still with bilateral lower extremity pain secondary to edema. Physical exam: General: Awake and alert lying in bed in no acute distress HEENT: Normocephalic, atraumatic. Extraocular muscles intact, pupils equal and reactive, no scleral icterus. Oropharynx is pink and moist. No pharyngeal erythema or exudate appreciated. Neck is supple. Cardiovascular: Regular rhythm. Normal S1 and S2. No murmurs, rubs, or gallops appreciated Pulmonary: Improved use abdominal accessory muscles to breath. Decreased breath sounds. Mild expiratory wheezing. No rhonchi or rales appreciated. Gastrointestinal: Soft, nondistended. Nontender. Positive bowel sounds all 4 quadrants. No guarding. Musculoskeletal: Moves all extremities. No calf tenderness. Bilateral lower extremity pitting edema. Central nervous system: AAOx3. Dermatologic: Skin warm and dry. Assessment and plan: Patient is a 68-year-old female with past medical history significant for chronic kidney disease, type 2 diabetes, hypertension, hyperlipidemia, and anemia that presented to the emergency room for change in mental status, lethargy, and weakness. 1. UTI. Urine culture positive for ESBL and Beta hemolytic Strep Group B. Continue Merrem day #8. ID following, recommendations appreciated. Patient afebrile and no leukocytosis. Blood cultures with no growth. 2. Toxic metabolic encephalopathy. Likey secondary to UTI. Resolved. Neurology following, recommendations appreciated. Head CT per radiologist showed no acute intracranial pathology identified. Brain MRI per radiologist showed no acute intracranial findings. Continue supportive care. 3. JOSUE on CKD. Will likely need dialysis in the near future. Nephrology following, recommendations appreciated. Creatinine stable today at 3.4. Patient does not what AV fistula currently, she wants to follow up with her primary care doctor first. Vein mapping completed. Continue Renagel. Continue Torsemide. Continue Lasix. Chest xray showed no active disease. 4. Dyspnea. Chest xray showed no active disease. Continue nebulizer treatments. Continue Solu-medrol. Continue pulmicort and Brovana. Pulmonary following, recommendations appreciated. Possible undiagnosed asthma per pulmonary. Will need outpatient PFTs, discussed at length with patient and patient's daughter at bedside. Chest CT per radiologist showed no acute findings; stable pulmonary parenchymal findings including scarring/postoperative changes right lung; chronic interstitial lung disease, mosaic pattern; no suspicious pulmonary nod ules, masses, or infiltrates. V/Q scan low probability for pulmonary embolism. 5. Essential hypertension. Continue Norvasc, Coreg, Clonidine patch, and hydralazine 6. DM2. Continue insulin sliding scale, Continue amaryl. Added humulin R AC secondary to hyperglycemia secondary to steroids. Continue to monitor accuchecks. 7. Hyperlipidemia. Continue Lipitor. 8. Anemia of chronic disease. FOBT+. S/P 1 unit PRBC on 12/24/18. S/P 1 unit PRBC 12/30/18 with improvent. GI following, recommendations appreciated. No plans for endoscopic procedure for now. Continue IV iron. H&H stable, continue to monitor. Weekly Aranesp. Credit Review Analyst following, recommendations appreciated. 9. GI/DVT prophylaxis. Protonix/heparin 10. Patient is a full code. Case was discussed in detail with the patient regarding current diagnosis and treatment plan. All questions answered.
[2018-12-31] MEDS: MethylPREDNISolone 40 mg Vial IVP SCH ×2 (10:30→21:56)
[2018-12-31] MEDS ORDERED: Insulin Regular 1 UNITS/0.01 ML ML SC SCH (11:30)
[2018-12-31] MEDS ORDERED: Albuterol-Ipratrop 3 mg / 0.5 (3 ml) UD IH PRN (11:40)
[2018-12-31] MEDS: Insulin Reg-MEDIUM-Coverage SC SCH ×3 (12:34→21:58)
--- NOTE | 2018-12-31 13:26 | CP.PCM.PN ---
Subjective - Date & Time of Evaluation Date of Evaluation: 12/31/18 Time of Evaluation: 10:50 - Subjective Subjective: Comfortable in bed, no fevers. Objective - Vital Signs/Intake and Output Vital Signs (last 24 hours): Temp Pulse Resp BP Pulse Ox 98.0 F 78 16 156/63 H 98 12/30/18 14:43 12/30/18 14:43 12/30/18 14:43 12/30/18 14:49 12/30/18 08:13 Intake and Output: 12/30/18 12/30/18 06:59 18:59 Intake Total 720 325 Balance 720 325 - Medications Medications: Current Medications Albuterol/Ipratropium (Duoneb 3 Mg/0.5 Mg (3 Ml) Ud) 3 ml IH Q6H [facility] Last Admin: 12/30/18 07:48 Dose: 3 ml Albuterol/Ipratropium (Duoneb 3 Mg/0.5 Mg (3 Ml) Ud) 3 ml IH Q2H PRN PRN Reason: Shortness of Breath Last Admin: 12/30/18 12:04 Dose: 3 ml Amlodipine Besylate (Norvasc) 10 mg PO DAILY [facility] Last Admin: 12/30/18 10:40 Dose: 10 mg Arformoterol Tartrate (Brovana) 15 mcg IH [id number] [facility] Atorvastatin Calcium (Lipitor) 40 mg PO DAILY [facility] Last Admin: 12/30/18 10:39 Dose: 40 mg Budesonide (Pulmicort Respules) 0.5 mg IH [id number] [facility] Carvedilol (Coreg) 25 mg PO Q12H [facility] Last Admin: 12/30/18 07:00 Dose: Not Given Clonidine HCl (Catapres Tts1 0.1 Mg/24 Hr) 1 patch TD QWK [facility] Last Admin: 12/25/18 10:47 Dose: 1 patch Dextrose (Dextrose 50% Inj) 0 ml IV STAT PRN; Protocol PRN Reason: Hypoglycemia Protocol Ergocalciferol (Drisdol 50,000 Intl Units Cap) 1 cap PO Q7D [facility] Last Admin: 12/27/18 12:02 Dose: 1 cap Glimepiride (Amaryl) 1 mg PO DAILY [facility] Last Admin: 12/30/18 10:40 Dose: 1 mg Heparin Sodium (Porcine) (Heparin) 5,000 units SC Q12 [facility]; Protocol Last Admin: 12/30/18 10:41 Dose: 5,000 units Hydralazine HCl (Apresoline) 10 mg IVP Q6 PRN PRN Reason: Systolic Blood Pressure Last Admin: 12/27/18 06:48 Dose: 10 mg Hydralazine HCl (Apresoline) 50 mg PO Q8H [facility] Last Admin: 12/30/18 14:49 Dose: 50 mg Dextrose (Dextrose 5% In Water 1000 Ml) 1,000 mls @ 0 mls/hr IV .Q0M PRN; Protocol PRN Reason: Hypoglycemia Protocol Meropenem 250 mg/ Sodium (Chloride) 100 mls @ 100 mls/hr IVPB Q12 [facility]; Protocol Stop: 12/31/18 22:01 Last Admin: 12/30/18 10:41 Dose: 100 mls/hr Insulin Human Regular (Humulin R Low) 0 units SC ACHS [facility]; Protocol Last Admin: 12/30/18 12:45 Dose: Not Given Methylprednisolone (Solu-Medrol) 40 mg IVP Q12 [facility] Last Admin: 12/30/18 10:41 Dose: 40 mg Pantoprazole Sodium (Protonix Ec Tab) 40 mg PO 0600 [facility] Last Admin: 12/30/18 05:26 Dose: 40 mg Sevelamer HCl (Renagel) 800 mg PO WM [facility] Last Admin: 12/30/18 08:41 Dose: Not Given Torsemide (Demadex) 20 mg PO DAILY [facility] - Labs Labs: 12/30/18 05:45 12/30/18 05:45 PT 13.4 SECONDS (9.4-12.5) H 12/23/18 10:56 INR 1.19 12/23/18 10:56 APTT 35.0 Seconds (26.9-38.3) 12/23/18 10:56 - Constitutional Appears: Chronically Ill - Head Exam Head Exam: NORMAL INSPECTION - Respiratory Exam Respiratory Exam: Decreased Breath Sounds - Cardiovascular Exam Cardiovascular Exam: +S1, +S2 - GI/Abdominal Exam GI & Abdominal Exam: Soft. absent: Tenderness Assessment and Plan - Assessment and Plan (Free Text) Plan: Asssessment systemic inflammatory response syndrome, consider sepsis due to UTI with Group B Strep and ESBL E. coli history of right pyelonephritis with ESBL E. coli acute renal failure history of herpes zoster on the left chest and shoulder areas history of sepsis secondary to left otomastoiditis history of Methicillin-resistant coagulase negative staph and Enterococci bacteremia HTN DM obesity with BMI 30 chronic renal failure Plan continue renally-adjusted Merrem day 8 for 7-10 days and will continue to monitor clinically discussed with Dr. Evangelista previously
--- NOTE | 2018-12-31 16:35 | CP.PCM.PN ---
Subjective - Date & Time of Evaluation Date of Evaluation: 12/31/18 Time of Evaluation: 16:30 - Subjective Subjective: Pt seen and examined NO respiratory complaints Denies SOB, CP, cough, [place] Objective - Vital Signs/Intake and Output Vital Signs (last 24 hours): Temp Pulse Resp BP Pulse Ox 98.2 F 76 22 164/76 H 96 12/31/18 06:00 12/31/18 12:25 12/31/18 06:00 12/31/18 12:25 12/31/18 06:00 Intake and Output: 12/31/18 12/31/18 06:59 18:59 Intake Total 240 Output Total 200 Balance 40 - Medications Medications: Current Medications Albuterol/Ipratropium (Duoneb 3 Mg/0.5 Mg (3 Ml) Ud) 3 ml IH [id number] [facility] Albuterol/Ipratropium (Duoneb 3 Mg/0.5 Mg (3 Ml) Ud) 3 ml IH RQ2 PRN PRN Reason: Shortness of Breath Amlodipine Besylate (Norvasc) 10 mg PO DAILY [facility] Last Admin: 12/31/18 10:32 Dose: 10 mg Arformoterol Tartrate (Brovana) 15 mcg IH [id number] [facility] Last Admin: 12/31/18 08:00 Dose: 15 mcg Atorvastatin Calcium (Lipitor) 40 mg PO DAILY [facility] Last Admin: 12/31/18 10:31 Dose: 40 mg Budesonide (Pulmicort Respules) 0.5 mg IH [id number] [facility] Last Admin: 12/31/18 08:02 Dose: 0.5 mg Carvedilol (Coreg) 25 mg PO Q12H [facility] Last Admin: 12/31/18 07:56 Dose: 25 mg Clonidine HCl (Catapres Tts1 0.1 Mg/24 Hr) 1 patch TD QWK [facility] Last Admin: 12/31/18 11:01 Dose: 1 patch Dextrose (Dextrose 50% Inj) 0 ml IV STAT PRN; Protocol PRN Reason: Hypoglycemia Protocol Ergocalciferol (Drisdol 50,000 Intl Units Cap) 1 cap PO Q7D [facility] Last Admin: 12/27/18 12:02 Dose: 1 cap Glimepiride (Amaryl) 1 mg PO DAILY [facility] Last Admin: 12/31/18 10:31 Dose: 1 mg Heparin Sodium (Porcine) (Heparin) 5,000 units SC Q12 TL; Protocol Last Admin: 12/31/18 10:27 Dose: 5,000 units Hydralazine HCl (Apresoline) 10 mg IVP Q6 PRN PRN Reason: Systolic Blood Pressure Last Admin: 12/27/18 06:48 Dose: 10 mg Hydralazine HCl (Apresoline) 100 mg PO Q8H [facility] Last Admin: 12/31/18 12:25 Dose: 100 mg Dextrose (Dextrose 5% In Water 1000 Ml) 1,000 mls @ 0 mls/hr IV .Q0M PRN; Protocol PRN Reason: Hypoglycemia Protocol Meropenem 250 mg/ Sodium (Chloride) 100 mls @ 100 mls/hr IVPB Q12 [facility]; Protocol Stop: 12/31/18 22:01 Last Admin: 12/31/18 10:33 Dose: 100 mls/hr Insulin Human Regular (Humulin R) 4 units SC AC [facility] Last Admin: 12/31/18 12:26 Dose: 4 units Insulin Human Regular (Humulin R Med) 0 units SC ACHS [facility]; Protocol Last Admin: 12/31/18 12:34 Dose: 8 units Methylprednisolone (Solu-Medrol) 40 mg IVP Q12 [facility] Last Admin: 12/31/18 10:30 Dose: 40 mg Pantoprazole Sodium (Protonix Ec Tab) 40 mg PO 0600 [facility] Last Admin: 12/31/18 05:40 Dose: 40 mg Sevelamer HCl (Renagel) 800 mg PO WM [facility] Last Admin: 12/31/18 12:34 Dose: 800 mg Torsemide (Demadex) 20 mg PO DAILY [facility] Last Admin: 12/31/18 10:31 Dose: 20 mg - Labs Labs: 12/31/18 05:50 12/31/18 05:50 PT 13.4 SECONDS (9.4-12.5) H 12/23/18 10:56 INR 1.19 12/23/18 10:56 APTT 35.0 Seconds (26.9-38.3) 12/23/18 10:56 - Constitutional Appears: Non-toxic, No Acute Distress - Head Exam Head Exam: NORMAL INSPECTION - Eye Exam Eye Exam: Normal appearance - ENT Exam ENT Exam: Mucous Membranes Moist - Respiratory Exam Respiratory Exam: NORMAL BREATHING PATTERN Additional comments: minimal wheezing - Cardiovascular Exam Cardiovascular Exam: REGULAR RHYTHM, +S1, +S2 - GI/Abdominal Exam GI & Abdominal Exam: Soft, Normal Bowel Sounds - Extremities Exam Extremities Exam: Normal Inspection - Neurological Exam Neurological Exam: Alert, Awake, Oriented x3 - Skin Skin Exam: Normal Color, Warm Assessment and Plan - Assessment and Plan (Free Text) Assessment: 68yo female with likely an Asthma exacerbation, and mosaic pattern on chest CT rule out Asthma Exacerbation Mosaic Pattern on CT chest, rule out ILD - currently afebrile, HD stable, comfortable in NAD, on room air sat 97% - on exam has minimal wheezing, improved yesterday - subjectively patient denies any resp complaints - CT chest reviewed, mosaic pattern attenuation, with bronchiectasis, which is really non specific, has broad differential diagnosis including but not limited to small airway disease (asthma, bronchiectasis, bronchiolitis, etc), vascular disorders, ground glass opacities. In this case most likely it is due to component of small airway disease, especially given the bronchiectasis, and likely undiagnosed asthma Recommend: - Duonebs PRN - Pulmicort 0.25mg BID - Cont with Solumedrol 40mg IV BID - FS control - will need outpatient PFTs, complete - follow up renal - DVT ppx - Pulmonary will continue to follow
--- NOTE | 2018-12-31 18:59 | CP.PCM.PN ---
<Sarthak Obrien Krisángel - Last Filed: 12/31/18 19:01> Subjective - Date & Time of Evaluation Date of Evaluation: 12/31/18 Time of Evaluation: 07:30 - Subjective Subjective: Nephrology progress note-Camille, PGY 2 Patient was seen and examined at bedside. Patient denies any new complaints and states that she is feeling better today she was examined at chair by bedside. There were no acute overnight events Objective - Vital Signs/Intake and Output Vital Signs (last 24 hours): Temp Pulse Resp BP Pulse Ox 98.2 F 70 22 147/61 96 12/31/18 06:00 12/31/18 18:15 12/31/18 06:00 12/31/18 18:15 12/31/18 06:00 Intake and Output: 12/31/18 12/31/18 06:59 18:59 Intake Total 240 Output Total 200 Balance 40 - Medications Medications: Current Medications Albuterol/Ipratropium (Duoneb 3 Mg/0.5 Mg (3 Ml) Ud) 3 ml IH [id number] [facility] Albuterol/Ipratropium (Duoneb 3 Mg/0.5 Mg (3 Ml) Ud) 3 ml IH RQ2 PRN PRN Reason: Shortness of Breath Amlodipine Besylate (Norvasc) 10 mg PO DAILY [facility] Last Admin: 12/31/18 10:32 Dose: 10 mg Arformoterol Tartrate (Brovana) 15 mcg IH [id number] [facility] Last Admin: 12/31/18 08:00 Dose: 15 mcg Atorvastatin Calcium (Lipitor) 40 mg PO DAILY [facility] Last Admin: 12/31/18 10:31 Dose: 40 mg Budesonide (Pulmicort Respules) 0.5 mg IH [id number] [facility] Last Admin: 12/31/18 08:02 Dose: 0.5 mg Carvedilol (Coreg) 25 mg PO Q12H [facility] Last Admin: 12/31/18 18:15 Dose: 25 mg Clonidine HCl (Catapres Tts1 0.1 Mg/24 Hr) 1 patch TD QWK [facility] Last Admin: 12/31/18 11:01 Dose: 1 patch Dextrose (Dextrose 50% Inj) 0 ml IV STAT PRN; Protocol PRN Reason: Hypoglycemia Protocol Ergocalciferol (Drisdol 50,000 Intl Units Cap) 1 cap PO Q7D [facility] Last Admin: 12/27/18 12:02 Dose: 1 cap Glimepiride (Amaryl) 1 mg PO DAILY [facility] Last Admin: 12/31/18 10:31 Dose: 1 mg Heparin Sodium (Porcine) (Heparin) 5,000 units SC Q12 TL; Protocol Last Admin: 12/31/18 10:27 Dose: 5,000 units Hydralazine HCl (Apresoline) 10 mg IVP Q6 PRN PRN Reason: Systolic Blood Pressure Last Admin: 12/27/18 06:48 Dose: 10 mg Hydralazine HCl (Apresoline) 100 mg PO Q8H [facility] Last Admin: 12/31/18 12:25 Dose: 100 mg Dextrose (Dextrose 5% In Water 1000 Ml) 1,000 mls @ 0 mls/hr IV .Q0M PRN; Protocol PRN Reason: Hypoglycemia Protocol Meropenem 250 mg/ Sodium (Chloride) 100 mls @ 100 mls/hr IVPB Q12 [facility]; Protocol Stop: 12/31/18 22:01 Last Admin: 12/31/18 10:33 Dose: 100 mls/hr Insulin Detemir (Levemir) 5 unit SC HS [facility] Insulin Human Regular (Humulin R Med) 0 units SC ACHS [facility]; Protocol Last Admin: 12/31/18 18:15 Dose: 7 units Insulin Human Regular (Humulin R) 6 units SC AC TL Methylprednisolone (Solu-Medrol) 40 mg IVP Q12 [facility] Last Admin: 12/31/18 10:30 Dose: 40 mg Pantoprazole Sodium (Protonix Ec Tab) 40 mg PO 0600 [facility] Last Admin: 12/31/18 05:40 Dose: 40 mg Sevelamer HCl (Renagel) 800 mg PO WM [facility] Last Admin: 12/31/18 18:15 Dose: 800 mg Torsemide (Demadex) 20 mg PO DAILY [facility] Last Admin: 12/31/18 10:31 Dose: 20 mg - Labs Labs: 12/31/18 05:50 12/31/18 05:50 PT 13.4 SECONDS (9.4-12.5) H 12/23/18 10:56 INR 1.19 12/23/18 10:56 APTT 35.0 Seconds (26.9-38.3) 12/23/18 10:56 - Constitutional Appears: Well - Head Exam Head Exam: ATRAUMATIC, NORMAL INSPECTION, NORMOCEPHALIC - Eye Exam Eye Exam: EOMI, Normal appearance, PERRL Pupil Exam: NORMAL ACCOMODATION, PERRL - ENT Exam ENT Exam: Mucous Membranes Moist, Normal Exam - Neck Exam Neck Exam: Full ROM, Normal Inspection. absent: Lymphadenopathy - Respiratory Exam Respiratory Exam: Clear to Ausculation Bilateral, NORMAL BREATHING PATTERN - Cardiovascular Exam Cardiovascular Exam: REGULAR RHYTHM, +S1, +S2. absent: Murmur - GI/Abdominal Exam GI & Abdominal Exam: Soft, Normal Bowel Sounds. absent: Tenderness - Extremities Exam Extremities Exam: Full ROM, Normal Capillary Refill, Normal Inspection. absent: Joint Swelling, Pedal Edema - Back Exam Back Exam: NORMAL INSPECTION - Neurological Exam Neurological Exam: Alert, Awake, CN II-XII Intact, Normal Gait, Oriented x3 - Psychiatric Exam Psychiatric exam: Normal Affect, Normal Mood - Skin Skin Exam: Dry, Intact, Normal Color, Warm Assessment and Plan - Assessment and Plan (Free Text) Assessment: 68-year-old female with the pertinent medical history of hypertension and see KD as well as anemia of see KD with nephrology been consult it to manage see KD and hypertension plan Ccontinue with diuretic treatment using torsemide 20 daily. At this point patients family has been told as well as patient has been told that patient needs to prepare for dialysis; vein mapping is complete, the patients family is hesitant In proceeding with AVF formation. patient has stable anemia of chronic kidney disease. 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 Per patients chronic kidney disease we will continue with renegell daily <Darron Santiago - Last Filed: 01/01/19 06:26> Objective - Vital Signs/Intake and Output Vital Signs (last 24 hours): Temp Pulse Resp BP Pulse Ox 98.2 F 70 22 159/61 H 96 12/31/18 06:00 12/31/18 21:58 12/31/18 06:00 01/01/19 05:35 12/31/18 06:00 Intake and Output: 12/31/18 01/01/19 18:59 06:59 Intake Total 1140 Balance 1140 - Medications Medications: Current Medications Albuterol/Ipratropium (Duoneb 3 Mg/0.5 Mg (3 Ml) Ud) 3 ml IH [id number] [facility] Last Admin: 01/01/19 01:09 Dose: 3 ml Albuterol/Ipratropium (Duoneb 3 Mg/0.5 Mg (3 Ml) Ud) 3 ml IH RQ2 PRN PRN Reason: Shortness of Breath Amlodipine Besylate (Norvasc) 10 mg PO DAILY [facility] Last Admin: 12/31/18 10:32 Dose: 10 mg Arformoterol Tartrate (Brovana) 15 mcg IH [id number] [facility] Last Admin: 12/31/18 20:40 Dose: 15 mcg Atorvastatin Calcium (Lipitor) 40 mg PO DAILY [facility] Last Admin: 12/31/18 10:31 Dose: 40 mg Budesonide (Pulmicort Respules) 0.5 mg IH [id number] [facility] Last Admin: 12/31/18 20:40 Dose: 0.5 mg Carvedilol (Coreg) 25 mg PO Q12H [facility] Last Admin: 01/01/19 05:35 Dose: 25 mg Clonidine HCl (Catapres Tts1 0.1 Mg/24 Hr) 1 patch TD QWK [facility] Last Admin: 12/31/18 11:01 Dose: 1 patch Dextrose (Dextrose 50% Inj) 0 ml IV STAT PRN; Protocol PRN Reason: Hypoglycemia Protocol Ergocalciferol (Drisdol 50,000 Intl Units Cap) 1 cap PO Q7D [facility] Last Admin: 12/27/18 12:02 Dose: 1 cap Glimepiride (Amaryl) 1 mg PO DAILY [facility] Last Admin: 12/31/18 10:31 Dose: 1 mg Heparin Sodium (Porcine) (Heparin) 5,000 units SC Q12 [facility]; Protocol Last Admin: 12/31/18 21:57 Dose: 5,000 units Hydralazine HCl (Apresoline) 10 mg IVP Q6 PRN PRN Reason: Systolic Blood Pressure Last Admin: 12/27/18 06:48 Dose: 10 mg Hydralazine HCl (Apresoline) 100 mg PO Q8H [facility] Last Admin: 01/01/19 04:00 Dose: Not Given Dextrose (Dextrose 5% In Water 1000 Ml) 1,000 mls @ 0 mls/hr IV .Q0M PRN; Protocol PRN Reason: Hypoglycemia Protocol Insulin Detemir (Levemir) 5 unit SC HS [facility] Last Admin: 12/31/18 21:57 Dose: 5 units Insulin Human Regular (Humulin R Med) 0 units SC ACHS [facility]; Protocol Last Admin: 12/31/18 21:58 Dose: 3 units Insulin Human Regular (Humulin R) 6 units SC AC TL Methylprednisolone (Solu-Medrol) 40 mg IVP Q12 [facility] Last Admin: 12/31/18 21:56 Dose: 40 mg Pantoprazole Sodium (Protonix Ec Tab) 40 mg PO 0600 [facility] Last Admin: 01/01/19 05:35 Dose: 40 mg Sevelamer HCl (Renagel) 800 mg PO WM [facility] Last Admin: 12/31/18 18:15 Dose: 800 mg Torsemide (Demadex) 20 mg PO DAILY [facility] Last Admin: 12/31/18 10:31 Dose: 20 mg - Labs Labs: 12/31/18 05:50 12/31/18 05:50 PT 13.4 SECONDS (9.4-12.5) H 12/23/18 10:56 INR 1.19 12/23/18 10:56 APTT 35.0 Seconds (26.9-38.3) 12/23/18 10:56 Attending/Attestation - Attestation I have personally seen and examined this patient.: Yes I have fully participated in the care of the patient.: Yes I have reviewed all pertinent clinical information, including history, physical exam and plan: Yes Notes (Text): Patient seen and examined; I agree with the resident's note as above with the following additions/edits: Patient with htn, dm, and CKD IV/V, admitted with E coli ESBL UTI; Relatively stable renal function though patient remains borderline for need to initiate HD, no absolute urgency at this moment; volume excess being controlled by cautious use of diuretics; has significant lower ext edema but resp status stable with no extra FIO2 requirement; borderline hyperkalemia seen today for the first time but after patient received prbc transfusion yesterday; will re- assess for need for potassium lowering therapy tomorrow; Hypertensive CKD, BP better controlled today after increasing hydralazine to 100 mg q8h, will continue the same along with rest of BP meds; Anemia of CKD, hgb stable, already received aranesp 100 mcg this week, will need to be re-dosed next week; CKD mineral bone disorder, phos controlled on sevelamer 1 tab w/ meals, continue same;
[2018-12-31] MEDS: Insulin Detemir 100 units/ml Vial (Levemir) SC SCH (21:57)
[2019-01-01] MEDS: Albuterol-Ipratrop 3 mg / 0.5 (3 ml) UD IH SCH ×4 (01:09→19:57)
[2019-01-01] MEDS: Pantoprazole 40 mg EC Tab PO SCH (05:35)
[2019-01-01 06:39] LABS: MEAN CELL VOLUME 93.7 fl (80.0-105.0); MEAN CORPUSCULAR HEMOGLOBIN 30.1 pg (25.0-35.0); MEAN CORPUSCULAR HGB CONC 32.2 g/dl (31.0-37.0); RBC 3.32 10^6/uL (3.5-6.1); WHITE BLOOD COUNT 13.1 10^3/uL (4.5-11.0)
[2019-01-01 07:31] LABS: ALB/GLOB RATIO 0.9 (1.1-1.8); ALBUMIN 2.9 g/dL (3.0-4.8); CALCIUM 8.3 mg/dL (8.4-10.5)
[2019-01-01] MEDS: Arformoterol 15 mcg/2 ml Inh Sol IH SCH ×2 (07:32→19:57)
[2019-01-01] MEDS: Budesonide 0.5 mg/2 ml Inhal Susp UD IH SCH ×2 (07:32→19:58)
[2019-01-01] MEDS: Insulin Regular 1 UNITS/0.01 ML ML SC SCH ×3 (08:04→17:02)
[2019-01-01] MEDS: Insulin Reg-MEDIUM-Coverage SC SCH ×4 (08:05→21:19)
[2019-01-01] MEDS: MethylPREDNISolone 40 mg Vial IVP SCH ×2 (09:38→21:05)
--- NOTE | 2019-01-01 14:52 | CP.PCM.PN ---
Subjective - Date & Time of Evaluation Date of Evaluation: 01/01/19 Time of Evaluation: 08:40 - Subjective Subjective: Afebrile, not in distress. Objective - Vital Signs/Intake and Output Vital Signs (last 24 hours): Temp Pulse Resp BP Pulse Ox 98.2 F 76 22 164/76 H 96 12/31/18 06:00 12/31/18 12:25 12/31/18 06:00 12/31/18 12:25 12/31/18 06:00 Intake and Output: 12/31/18 12/31/18 06:59 18:59 Intake Total 240 Output Total 200 Balance 40 - Medications Medications: Current Medications Albuterol/Ipratropium (Duoneb 3 Mg/0.5 Mg (3 Ml) Ud) 3 ml IH [id number] [facility] Albuterol/Ipratropium (Duoneb 3 Mg/0.5 Mg (3 Ml) Ud) 3 ml IH RQ2 PRN PRN Reason: Shortness of Breath Amlodipine Besylate (Norvasc) 10 mg PO DAILY [facility] Last Admin: 12/31/18 10:32 Dose: 10 mg Arformoterol Tartrate (Brovana) 15 mcg IH [id number] [facility] Last Admin: 12/31/18 08:00 Dose: 15 mcg Atorvastatin Calcium (Lipitor) 40 mg PO DAILY [facility] Last Admin: 12/31/18 10:31 Dose: 40 mg Budesonide (Pulmicort Respules) 0.5 mg IH [id number] [facility] Last Admin: 12/31/18 08:02 Dose: 0.5 mg Carvedilol (Coreg) 25 mg PO Q12H [facility] Last Admin: 12/31/18 07:56 Dose: 25 mg Clonidine HCl (Catapres Tts1 0.1 Mg/24 Hr) 1 patch TD QWK [facility] Last Admin: 12/31/18 11:01 Dose: 1 patch Dextrose (Dextrose 50% Inj) 0 ml IV STAT PRN; Protocol PRN Reason: Hypoglycemia Protocol Ergocalciferol (Drisdol 50,000 Intl Units Cap) 1 cap PO Q7D [facility] Last Admin: 12/27/18 12:02 Dose: 1 cap Glimepiride (Amaryl) 1 mg PO DAILY [facility] Last Admin: 12/31/18 10:31 Dose: 1 mg Heparin Sodium (Porcine) (Heparin) 5,000 units SC Q12 TL; Protocol Last Admin: 12/31/18 10:27 Dose: 5,000 units Hydralazine HCl (Apresoline) 10 mg IVP Q6 PRN PRN Reason: Systolic Blood Pressure Last Admin: 12/27/18 06:48 Dose: 10 mg Hydralazine HCl (Apresoline) 100 mg PO Q8H [facility] Last Admin: 12/31/18 12:25 Dose: 100 mg Dextrose (Dextrose 5% In Water 1000 Ml) 1,000 mls @ 0 mls/hr IV .Q0M PRN; Protocol PRN Reason: Hypoglycemia Protocol Meropenem 250 mg/ Sodium (Chloride) 100 mls @ 100 mls/hr IVPB Q12 TL; Protocol Stop: 12/31/18 22:01 Last Admin: 12/31/18 10:33 Dose: 100 mls/hr Insulin Human Regular (Humulin R) 4 units SC AC [facility] Last Admin: 12/31/18 12:26 Dose: 4 units Insulin Human Regular (Humulin R Med) 0 units SC ACHS [facility]; Protocol Last Admin: 12/31/18 12:34 Dose: 8 units Methylprednisolone (Solu-Medrol) 40 mg IVP Q12 [facility] Last Admin: 12/31/18 10:30 Dose: 40 mg Pantoprazole Sodium (Protonix Ec Tab) 40 mg PO 0600 [facility] Last Admin: 12/31/18 05:40 Dose: 40 mg Sevelamer HCl (Renagel) 800 mg PO WM [facility] Last Admin: 12/31/18 12:34 Dose: 800 mg Torsemide (Demadex) 20 mg PO DAILY [facility] Last Admin: 12/31/18 10:31 Dose: 20 mg - Labs Labs: 12/31/18 05:50 12/31/18 05:50 PT 13.4 SECONDS (9.4-12.5) H 12/23/18 10:56 INR 1.19 12/23/18 10:56 APTT 35.0 Seconds (26.9-38.3) 12/23/18 10:56 - Constitutional Appears: Chronically Ill - Head Exam Head Exam: NORMAL INSPECTION - Neck Exam Neck Exam: absent: Meningismus - Respiratory Exam Respiratory Exam: Decreased Breath Sounds - Cardiovascular Exam Cardiovascular Exam: +S1, +S2 - GI/Abdominal Exam GI & Abdominal Exam: Soft. absent: Tenderness Assessment and Plan - Assessment and Plan (Free Text) Plan: Asssessment systemic inflammatory response syndrome, consider sepsis due to UTI with Group B Strep and ESBL E. coli history of right pyelonephritis with ESBL E. coli acute renal failure history of herpes zoster on the left chest and shoulder areas history of sepsis secondary to left otomastoiditis history of Methicillin-resistant coagulase negative staph and Enterococci bacteremia HTN DM obesity with BMI 30 chronic renal failure Plan continue renally-adjusted Merrem day 9 for 7-10 days and will continue to monitor clinically discussed with Dr. Evangelista previously
--- NOTE | 2019-01-01 19:14 | CP.PCM.PN ---
<Sarthak Obrien - Last Filed: 01/01/19 19:10> Subjective - Date & Time of Evaluation Date of Evaluation: 01/01/19 Time of Evaluation: 19:10 - Subjective Subjective: Nephrology progress note - Camille, PGY - 2 Patient seen and examined at bedside. No acute overnight events. Patient was tried off of NC to examine pulse ox, she is maintaining her sats currently. Continues to deny any breathing issues. Of note, we spoke to the patient's daughter today and advised her that patient cannot be safely discharged at this time and that patient will need to start HD here, after which she can follow up with her PMD and primary engine room operator. Patient's daughter continues to insist on leaving and following up with PMD. Objective - Vital Signs/Intake and Output Vital Signs (last 24 hours): Temp Pulse Resp BP Pulse Ox 97.5 F L 78 20 153/70 H 95 01/01/19 16:57 01/01/19 17:38 01/01/19 16:57 01/01/19 17:38 01/01/19 16:57 Intake and Output: 01/01/19 01/02/19 18:59 06:59 Intake Total 240 Balance 240 - Medications Medications: Current Medications Albuterol/Ipratropium (Duoneb 3 Mg/0.5 Mg (3 Ml) Ud) 3 ml IH [id number] [facility] Last Admin: 01/01/19 13:48 Dose: 3 ml Albuterol/Ipratropium (Duoneb 3 Mg/0.5 Mg (3 Ml) Ud) 3 ml IH RQ2 PRN PRN Reason: Shortness of Breath Amlodipine Besylate (Norvasc) 10 mg PO DAILY [facility] Last Admin: 01/01/19 09:38 Dose: 10 mg Arformoterol Tartrate (Brovana) 15 mcg IH [id number] [facility] Last Admin: 01/01/19 07:32 Dose: 15 mcg Atorvastatin Calcium (Lipitor) 40 mg PO DAILY [facility] Last Admin: 01/01/19 09:38 Dose: 40 mg Budesonide (Pulmicort Respules) 0.5 mg IH [id number] [facility] Last Admin: 01/01/19 07:32 Dose: 0.5 mg Carvedilol (Coreg) 25 mg PO Q12H [facility] Last Admin: 01/01/19 17:00 Dose: 25 mg Clonidine HCl (Catapres Tts1 0.1 Mg/24 Hr) 1 patch TD QWK [facility] Last Admin: 12/31/18 11:01 Dose: 1 patch Dextrose (Dextrose 50% Inj) 0 ml IV STAT PRN; Protocol PRN Reason: Hypoglycemia Protocol Ergocalciferol (Drisdol 50,000 Intl Units Cap) 1 cap PO Q7D [facility] Last Admin: 12/27/18 12:02 Dose: 1 cap Glimepiride (Amaryl) 1 mg PO DAILY [facility] Last Admin: 01/01/19 09:39 Dose: 1 mg Heparin Sodium (Porcine) (Heparin) 5,000 units SC Q12 [facility]; Protocol Last Admin: 01/01/19 09:38 Dose: 5,000 units Hydralazine HCl (Apresoline) 10 mg IVP Q6 PRN PRN Reason: Systolic Blood Pressure Last Admin: 12/27/18 06:48 Dose: 10 mg Hydralazine HCl (Apresoline) 100 mg PO Q8H [facility] Last Admin: 01/01/19 17:38 Dose: 100 mg Dextrose (Dextrose 5% In Water 1000 Ml) 1,000 mls @ 0 mls/hr IV .Q0M PRN; Protocol PRN Reason: Hypoglycemia Protocol Insulin Detemir (Levemir) 5 unit SC HS [facility] Last Admin: 12/31/18 21:57 Dose: 5 units Insulin Human Regular (Humulin R Med) 0 units SC ACHS [facility]; Protocol Last Admin: 01/01/19 17:01 Dose: 8 units Insulin Human Regular (Humulin R) 6 units SC AC [facility] Last Admin: 01/01/19 17:02 Dose: 6 units Methylprednisolone (Solu-Medrol) 30 mg IVP Q12 [facility] Pantoprazole Sodium (Protonix Ec Tab) 40 mg PO 0600 [facility] Last Admin: 01/01/19 05:35 Dose: 40 mg Sevelamer HCl (Renagel) 800 mg PO WM [facility] Last Admin: 01/01/19 17:00 Dose: 800 mg Torsemide (Demadex) 20 mg PO DAILY [facility] Last Admin: 01/01/19 09:39 Dose: 20 mg - Labs Labs: 01/01/19 05:45 01/01/19 05:45 PT 13.4 SECONDS (9.4-12.5) H 12/23/18 10:56 INR 1.19 12/23/18 10:56 APTT 35.0 Seconds (26.9-38.3) 12/23/18 10:56 - Constitutional Appears: Well - Head Exam Head Exam: ATRAUMATIC, NORMAL INSPECTION, NORMOCEPHALIC - Eye Exam Eye Exam: EOMI, Normal appearance, PERRL Pupil Exam: NORMAL ACCOMODATION, PERRL - ENT Exam ENT Exam: Mucous Membranes Moist, Normal Exam - Neck Exam Neck Exam: Full ROM, Normal Inspection. absent: Lymphadenopathy - Respiratory Exam Respiratory Exam: Wheezes, NORMAL BREATHING PATTERN - Cardiovascular Exam Cardiovascular Exam: REGULAR RHYTHM, +S1, +S2. absent: Murmur - GI/Abdominal Exam GI & Abdominal Exam: Soft, Normal Bowel Sounds. absent: Tenderness - Extremities Exam Extremities Exam: Full ROM, Normal Capillary Refill. absent: Joint Swelling, Pedal Edema Additional comments: patient has bilateral le 2+ edema - Back Exam Back Exam: NORMAL INSPECTION - Neurological Exam Neurological Exam: Alert, Awake, CN II-XII Intact, Normal Gait, Oriented x3 - Psychiatric Exam Psychiatric exam: Normal Affect, Normal Mood - Skin Skin Exam: Dry, Intact, Normal Color, Warm Assessment and Plan - Assessment and Plan (Free Text) Assessment: 68 F with PMH of DM2, CKD stage IV (diabetic), HTN, anemia, fatty liver, UTI and obesity presents to [facility] for AMS 2/2 UTI. Nephrology consulted for Stage IV CKD, HTN, Anemia. Plan Diabetic Nephropathy CKD 4 - Continue with renagel 800 mg WM, - Patient and family would prefer to hold off on AVF creation; vein mapping is complete - Patient's GFR of 12 today - needs to initiate HD HTN - Continue norvasc 10, Coreg 12.5, Clonidine patch - Continue with Torsemide 20 mg daily - Stat dose of lasix 40 today Anemia of CKD - Should administer another dose of Aranesp next week - GI on board for positive FOBT CKD with Mineral and Bone Disorder - Continue Renagel - Continue with Drisdol <Darron Santiago - Last Filed: 01/02/19 06:32> Objective - Vital Signs/Intake and Output Vital Signs (last 24 hours): Temp Pulse Resp BP Pulse Ox 97.5 F L 78 20 153/70 H 96 01/01/19 19:18 01/01/19 19:18 01/01/19 19:18 01/01/19 19:18 01/01/19 19:18 Intake and Output: 01/01/19 01/02/19 18:59 06:59 Intake Total 240 180 Balance 240 180 - Medications Medications: Current Medications Albuterol/Ipratropium (Duoneb 3 Mg/0.5 Mg (3 Ml) Ud) 3 ml IH [id number] [facility] Last Admin: 01/01/19 19:57 Dose: 3 ml Albuterol/Ipratropium (Duoneb 3 Mg/0.5 Mg (3 Ml) Ud) 3 ml IH RQ2 PRN PRN Reason: Shortness of Breath Amlodipine Besylate (Norvasc) 10 mg PO DAILY [facility] Last Admin: 01/01/19 09:38 Dose: 10 mg Arformoterol Tartrate (Brovana) 15 mcg IH [id number] [facility] Last Admin: 01/01/19 19:57 Dose: 15 mcg Atorvastatin Calcium (Lipitor) 40 mg PO DAILY [facility] Last Admin: 01/01/19 09:38 Dose: 40 mg Budesonide (Pulmicort Respules) 0.5 mg IH [id number] [facility] Last Admin: 01/01/19 19:58 Dose: 0.5 mg Carvedilol (Coreg) 25 mg PO Q12H [facility] Last Admin: 01/01/19 17:00 Dose: 25 mg Clonidine HCl (Catapres Tts1 0.1 Mg/24 Hr) 1 patch TD QWK [facility] Last Admin: 12/31/18 11:01 Dose: 1 patch Dextrose (Dextrose 50% Inj) 0 ml IV STAT PRN; Protocol PRN Reason: Hypoglycemia Protocol Ergocalciferol (Drisdol 50,000 Intl Units Cap) 1 cap PO Q7D [facility] Last Admin: 12/27/18 12:02 Dose: 1 cap Glimepiride (Amaryl) 1 mg PO DAILY [facility] Last Admin: 01/01/19 09:39 Dose: 1 mg Hydralazine HCl (Apresoline) 10 mg IVP Q6 PRN PRN Reason: Systolic Blood Pressure Last Admin: 12/27/18 06:48 Dose: 10 mg Hydralazine HCl (Apresoline) 100 mg PO Q8H [facility] Last Admin: 01/02/19 03:31 Dose: Not Given Dextrose (Dextrose 5% In Water 1000 Ml) 1,000 mls @ 0 mls/hr IV .Q0M PRN; Protocol PRN Reason: Hypoglycemia Protocol Insulin Detemir (Levemir) 5 unit SC HS [facility] Last Admin: 01/01/19 21:08 Dose: 5 units Insulin Human Regular (Humulin R Med) 0 units SC ACHS [facility]; Protocol Last Admin: 01/01/19 21:19 Dose: 2 units Insulin Human Regular (Humulin R) 6 units SC AC [facility] Last Admin: 01/01/19 17:02 Dose: 6 units Methylprednisolone (Solu-Medrol) 30 mg IVP Q12 [facility] Last Admin: 01/01/19 21:05 Dose: 30 mg Pantoprazole Sodium (Protonix Ec Tab) 40 mg PO 0600 [facility] Last Admin: 01/01/19 05:35 Dose: 40 mg Sevelamer HCl (Renagel) 800 mg PO WM [facility] Last Admin: 01/01/19 17:00 Dose: 800 mg Torsemide (Demadex) 20 mg PO DAILY [facility] Last Admin: 01/01/19 09:39 Dose: 20 mg - Labs Labs: 01/01/19 05:45 01/01/19 05:45 PT 13.4 SECONDS (9.4-12.5) H 12/23/18 10:56 INR 1.19 12/23/18 10:56 APTT 35.0 Seconds (26.9-38.3) 12/23/18 10:56 Attending/Attestation - Attestation I have personally seen and examined this patient.: Yes I have fully participated in the care of the patient.: Yes I have reviewed all pertinent clinical information, including history, physical exam and plan: Yes Notes (Text): Patient seen and examined; I agree with the resident's note as above with the following additions/edits: Patient with htn, dm, and CKD IV/V, admitted with E coli ESBL UTI; Overall worsening renal function; only mild decrease in eGFR since admission but patient has very little renal reserve (CrCl 12 ml/min) to maintain volume and electrolyte status; volume excess appears worse on exam with increasing lower ext edema, elevated JVD and mild tachypnea although O2 maintained on room air; also with borderline hyperkalemia these last 2 days; BP better controlled but still elevated due to volume excess; we can try more aggressive diuretic treatment but at the expense of worsening renal function; At this point, the most prudent course of action is to initiate HD during current admission in order to prevent an emergent need for dialysis after discharge; the benefit in delaying HD (ideally in order to create AVF and waiting for maturation) no longer appears feasible; We explained to patient, using our [place] Citizen speaking nurse mainframe consultant, that it would not be safe to discharge her without initiating HD; patient/family are still very hesitant; furthermore, despite patient having decision making capacity, patient relies on her children for decision-making and daughter who we are in contact with now wants all family members present to make decision; -Will continue to discuss need for HD with patient/family; if HD is still being refused, we will document that patient is refusing a potential life saving intervention; -Continue current anti-htn regimen; dose IV lasix 40-80 mg prn; -Continue phoslo w/ meals; -Hgb currently stable s/p prbc transfusion, monitor;
[2019-01-01] MEDS: Insulin Detemir 100 units/ml Vial (Levemir) SC SCH (21:08)
--- NOTE | 2019-01-01 21:35 | CP.PCM.PN ---
<Marcelo Cole - Last Filed: 01/01/19 21:32> Subjective - Date & Time of Evaluation Date of Evaluation: 01/01/19 Time of Evaluation: 08:00 - Subjective Subjective: Marcelo Cole PGY1 Medicine Progress Note for Dr. Castanon Patient was seen and examined at bedside this morning. BP was 159/61, otherwise vital signs stable. Patient denies cp, sob, abdominal pain, n/v/d. She was explained that she needs dialysis however patient wants medical team to talk to daughter to make a decision. A full 12 point ROS was conducted and unremarkable except as stated above. Objective - Vital Signs/Intake and Output Vital Signs (last 24 hours): Temp Pulse Resp BP Pulse Ox 97.5 F L 78 20 153/70 H 96 01/01/19 19:18 01/01/19 19:18 01/01/19 19:18 01/01/19 19:18 01/01/19 19:18 Intake and Output: 01/01/19 01/02/19 18:59 06:59 Intake Total 240 Balance 240 - Medications Medications: Current Medications Albuterol/Ipratropium (Duoneb 3 Mg/0.5 Mg (3 Ml) Ud) 3 ml IH [id number] [facility] Last Admin: 01/01/19 19:57 Dose: 3 ml Albuterol/Ipratropium (Duoneb 3 Mg/0.5 Mg (3 Ml) Ud) 3 ml IH RQ2 PRN PRN Reason: Shortness of Breath Amlodipine Besylate (Norvasc) 10 mg PO DAILY [facility] Last Admin: 01/01/19 09:38 Dose: 10 mg Arformoterol Tartrate (Brovana) 15 mcg IH [id number] [facility] Last Admin: 01/01/19 19:57 Dose: 15 mcg Atorvastatin Calcium (Lipitor) 40 mg PO DAILY [facility] Last Admin: 01/01/19 09:38 Dose: 40 mg Budesonide (Pulmicort Respules) 0.5 mg IH [id number] [facility] Last Admin: 01/01/19 19:58 Dose: 0.5 mg Carvedilol (Coreg) 25 mg PO Q12H [facility] Last Admin: 01/01/19 17:00 Dose: 25 mg Clonidine HCl (Catapres Tts1 0.1 Mg/24 Hr) 1 patch TD QWK [facility] Last Admin: 12/31/18 11:01 Dose: 1 patch Dextrose (Dextrose 50% Inj) 0 ml IV STAT PRN; Protocol PRN Reason: Hypoglycemia Protocol Ergocalciferol (Drisdol 50,000 Intl Units Cap) 1 cap PO Q7D [facility] Last Admin: 12/27/18 12:02 Dose: 1 cap Glimepiride (Amaryl) 1 mg PO DAILY [facility] Last Admin: 01/01/19 09:39 Dose: 1 mg Heparin Sodium (Porcine) (Heparin) 5,000 units SC Q12 [facility]; Protocol Last Admin: 01/01/19 21:05 Dose: 5,000 units Hydralazine HCl (Apresoline) 10 mg IVP Q6 PRN PRN Reason: Systolic Blood Pressure Last Admin: 12/27/18 06:48 Dose: 10 mg Hydralazine HCl (Apresoline) 100 mg PO Q8H [facility] Last Admin: 01/01/19 21:00 Dose: 100 mg Dextrose (Dextrose 5% In Water 1000 Ml) 1,000 mls @ 0 mls/hr IV .Q0M PRN; Protocol PRN Reason: Hypoglycemia Protocol Insulin Detemir (Levemir) 5 unit SC HS [facility] Last Admin: 01/01/19 21:08 Dose: 5 units Insulin Human Regular (Humulin R Med) 0 units SC ACHS [facility]; Protocol Last Admin: 01/01/19 21:19 Dose: 2 units Insulin Human Regular (Humulin R) 6 units SC AC [facility] Last Admin: 01/01/19 17:02 Dose: 6 units Methylprednisolone (Solu-Medrol) 30 mg IVP Q12 [facility] Last Admin: 01/01/19 21:05 Dose: 30 mg Pantoprazole Sodium (Protonix Ec Tab) 40 mg PO 0600 [facility] Last Admin: 01/01/19 05:35 Dose: 40 mg Sevelamer HCl (Renagel) 800 mg PO WM [facility] Last Admin: 01/01/19 17:00 Dose: 800 mg Torsemide (Demadex) 20 mg PO DAILY [facility] Last Admin: 01/01/19 09:39 Dose: 20 mg - Labs Labs: 01/01/19 05:45 01/01/19 05:45 PT 13.4 SECONDS (9.4-12.5) H 12/23/18 10:56 INR 1.19 12/23/18 10:56 APTT 35.0 Seconds (26.9-38.3) 12/23/18 10:56 - Constitutional Appears: No Acute Distress - Head Exam Head Exam: ATRAUMATIC, NORMAL INSPECTION, NORMOCEPHALIC - Eye Exam Eye Exam: EOMI - ENT Exam ENT Exam: Mucous Membranes Moist - Respiratory Exam Respiratory Exam: Wheezes (mild wheezing ). absent: Rales, Rhonchi, Respiratory Distress - Cardiovascular Exam Cardiovascular Exam: RRR, +S1, +S2 - GI/Abdominal Exam GI & Abdominal Exam: Soft, Normal Bowel Sounds. absent: Tenderness - Extremities Exam Extremities Exam: Full ROM, Normal Capillary Refill. absent: Joint Swelling, Pedal Edema Additional comments: +1 bilateral pitting edema - Neurological Exam Neurological Exam: Alert, Awake, CN II-XII Intact, Normal Gait, Oriented x3 - Psychiatric Exam Psychiatric exam: Normal Affect, Normal Mood - Skin Skin Exam: Dry, Intact, Normal Color, Warm Assessment and Plan - Assessment and Plan (Free Text) Assessment: Patient is a 68 y/o chilean speaking F with PMHx of CKD, DM2, HTN, HLD, anemia who presented to ED for change in mental status, lethargy and weakness. Admitted for toxic metabolic encephalopathy 2/2 ESBL UTI. Also found to have Uncontrolled HTN and shortness of breath 2/2 undiagnosed Asthma. Plan: Toxic Metabolic Encephalopathy 2/2 ESBL UTI - improved - c/w merrem (Day 9 of 10) for IV antibiotics - ID is on consult (Dr. Quiros). Recs appreciated. - s/p IR guided right arm PICC line in place (12/29) - Leukocytosis resolved. Afebrile. - c/w contact isolation - Hx ESBL and E. Coli resistant to multiple organisms Shortness of Breath 2/2 Undiagnosed Asthma - c/w methylprednisolone 40mg IVP q12 - c/w pulmicort, duonebs, torsemide - Pulm was consulted (Dr. Morton). Recs were appreciated. CT findings suggestive of small airway disease, likely undiagnosed asthma. Patient needs outpatient PFT evaluation. - Patient is still wheezing on exam with notable abdominal breathing - CT Chest (12/29): no acute findings. Possible chronic interstitial lung disease, mosaic pattern. HTN - uncontrolled - c/w amlodipine 10mg PO daily, carvedilol 25mg PO q12, hydralazine 100mg PO q8, and clonidine - Medications adjusted as per nephrology (Dr. Santiago) - Hx of HTN JOSUE on Stage IV CKD - Advanced Diabetic Nephropathy - Cr uptrending to 3.6 - Patient explained the need for dialysis. Will contact her daughter in regards to dialysis. - Biopsy: advanced diabetic nephropathy. - continue home renvela and ergocalciferol - Nephro following (Dr. Sanitago). Recs appreciated. Anemia of CKD - Hgb stable - c/w IV iron - Hgb was 7.8 on admission, s/p x2 pRBC total - Heme (Dr. Vernon) is on board. - GI was on consult (Dr. Narayan) and recommended outpatient endoscopic workup Hx DM2 - Continue glimepiride - ISS (med) - Accuchecks Hx HLD - continue atorvastatin DVT/GI PPx: Hep SC/protonix Diet: CCD Dispo: Continue to monitor patient on the floor. Improvement in wheezing. Will reach out to daughter in regards to discussion of hemodialysis. Case was discussed and reviewed with Attending Physician, Dr. Castanon. <Brisa Castanon R - Last Filed: 01/02/19 08:18> Objective - Vital Signs/Intake and Output Vital Signs (last 24 hours): Temp Pulse Resp BP Pulse Ox 97.5 F L 71 20 140/65 96 01/01/19 19:18 01/02/19 06:16 01/01/19 19:18 01/02/19 06:16 01/01/19 19:18 Intake and Output: 01/02/19 01/02/19 06:59 18:59 Intake Total 180 Balance 180 - Medications Medications: Current Medications Albuterol/Ipratropium (Duoneb 3 Mg/0.5 Mg (3 Ml) Ud) 3 ml IH [id number] [facility] Last Admin: 01/01/19 19:57 Dose: 3 ml Albuterol/Ipratropium (Duoneb 3 Mg/0.5 Mg (3 Ml) Ud) 3 ml IH RQ2 PRN PRN Reason: Shortness of Breath Amlodipine Besylate (Norvasc) 10 mg PO DAILY [facility] Last Admin: 01/01/19 09:38 Dose: 10 mg Arformoterol Tartrate (Brovana) 15 mcg IH [id number] [facility] Last Admin: 01/01/19 19:57 Dose: 15 mcg Atorvastatin Calcium (Lipitor) 40 mg PO DAILY [facility] Last Admin: 01/01/19 09:38 Dose: 40 mg Budesonide (Pulmicort Respules) 0.5 mg IH [id number] [facility] Last Admin: 01/01/19 19:58 Dose: 0.5 mg Carvedilol (Coreg) 25 mg PO Q12H [facility] Last Admin: 01/02/19 06:16 Dose: 25 mg Clonidine HCl (Catapres Tts1 0.1 Mg/24 Hr) 1 patch TD QWK [facility] Last Admin: 12/31/18 11:01 Dose: 1 patch Dextrose (Dextrose 50% Inj) 0 ml IV STAT PRN; Protocol PRN Reason: Hypoglycemia Protocol Ergocalciferol (Drisdol 50,000 Intl Units Cap) 1 cap PO Q7D [facility] Last Admin: 12/27/18 12:02 Dose: 1 cap Glimepiride (Amaryl) 1 mg PO DAILY [facility] Last Admin: 01/01/19 09:39 Dose: 1 mg Hydralazine HCl (Apresoline) 10 mg IVP Q6 PRN PRN Reason: Systolic Blood Pressure Last Admin: 12/27/18 06:48 Dose: 10 mg Hydralazine HCl (Apresoline) 100 mg PO Q8H [facility] Last Admin: 01/02/19 03:31 Dose: Not Given Dextrose (Dextrose 5% In Water 1000 Ml) 1,000 mls @ 0 mls/hr IV .Q0M PRN; Protocol PRN Reason: Hypoglycemia Protocol Insulin Detemir (Levemir) 5 unit SC HS [facility] Last Admin: 01/01/19 21:08 Dose: 5 units Insulin Human Regular (Humulin R Med) 0 units SC ACHS [facility]; Protocol Last Admin: 01/02/19 07:54 Dose: 3 units Insulin Human Regular (Humulin R) 6 units SC AC [facility] Last Admin: 01/02/19 07:53 Dose: 6 units Methylprednisolone (Solu-Medrol) 30 mg IVP Q12 [facility] Last Admin: 01/01/19 21:05 Dose: 30 mg Pantoprazole Sodium (Protonix Ec Tab) 40 mg PO 0600 [facility] Last Admin: 01/02/19 06:17 Dose: 40 mg Sevelamer HCl (Renagel) 800 mg PO WM [facility] Last Admin: 01/02/19 07:53 Dose: 800 mg Torsemide (Demadex) 20 mg PO DAILY [facility] Last Admin: 01/01/19 09:39 Dose: 20 mg - Labs Labs: 01/02/19 07:00 01/02/19 07:00 PT 13.4 SECONDS (9.4-12.5) H 12/23/18 10:56 INR 1.19 12/23/18 10:56 APTT 35.0 Seconds (26.9-38.3) 12/23/18 10:56 Attending/Attestation - Attestation I have personally seen and examined this patient.: Yes I have fully participated in the care of the patient.: Yes I have reviewed all pertinent clinical information, including history, physical exam and plan: Yes Notes (Text): Patient seen and examined by me with resident at 10:55AM on 01/01/19. Case including HPI, physical exam, and assessment and plan discussed with resident. Agree with above with following additions/corrections. Patient is a 68-year-old female with past medical history significant for chronic kidney disease, type 2 diabetes, hypertension, hyperlipidemia, and anemia that presented to the emergency room for change in mental status, lethargy, and weakness. soaker hides # [id number] used for translation. Patient states she is feeling ok. Complains of pain and worsening of swelling in her legs. Shortness of breath improved. Patient denies chest pain or palpitations. No fevers or chills. No headaches or dizziness. No dysuria or burning with urination. No diarrhea. No nausea, vomiting, or abdominal pain. Physical exam: General: Awake and alert lying in bed in no acute distress HEENT: Normocephalic, atraumatic. Extraocular muscles intact, pupils equal and reactive, no scleral icterus. Oropharynx is pink and moist. No pharyngeal erythema or exudate appreciated. Neck is supple. Cardiovascular: Regular rhythm. Normal S1 and S2. No murmurs, rubs, or gallops appreciated Pulmonary: Minimal use of abdominal accessory muscles. Decreased breath sounds. No rhonchi, rales, or wheezing appreciated. Gastrointestinal: Soft, nondistended. Nontender. Positive bowel sounds all 4 quadrants. No guarding. Musculoskeletal: Moves all extremities. No calf tenderness. Bilateral lower extremity pitting edema and tenderness. Central nervous system: AAOx3. Dermatologic: Skin warm and dry. Assessment and plan: Patient is a 68-year-old female with past medical history significant for chronic kidney disease, type 2 diabetes, hypertension, hyperlipidemia, and anemia that presented to the emergency room for change in mental status, lethargy, and weakness. 1. Worsening of CKD. Per human resources project manager, patient needs dialysis. Nephrology following, recommendations appreciated. Creatinine uptrending. Patient does not what AV fistula currently, she wants to follow up with her primary care doctor first. Vein mapping completed. Importance of having dialysis discussed in detail with patient. Continue Renagel. Continue Torsemide. Chest xray showed no active disease. 2. Dyspnea. Chest xray showed no active disease. Continue nebulizer treatments. Continue Solu-medrol. Continue pulmicort and Brovana. Pulmonary following, recommendations appreciated. Possible undiagnosed asthma per pulmonary. Will need outpatient PFTs, discussed at length with patient and patient's daughter. Also may be secondary to worsening renal function and need for dialysis. Chest CT per radiologist showed no acute findings; stable pulmonary parenchymal findings including scarring/postoperative changes right lung; chronic inter stitial lung disease, mosaic pattern; no suspicious pulmonary nodules, masses, or infiltrates. V/Q scan low probability for pulmonary embolism. 3. UTI. Urine culture positive for ESBL and Beta hemolytic Strep Group B. Continue Merrem day #9. ID following, recommendations appreciated. Patient afebr ile and no leukocytosis. Blood cultures with no growth. 4. Toxic metabolic encephalopathy. Likey secondary to UTI. Resolved. Neurology following, recommendations appreciated. Head CT per radiologist showed no acute intracranial pathology identified. Brain MRI per radiologist showed no acute intracranial findings. Continue supportive care. 5. Essential hypertension. Continue Norvasc, Coreg, Clonidine patch, and hydralazine. Continue Torsemide. 6. DM2. Continue insulin sliding scale, Continue amaryl. Continue humulin R AC. Continue levemir. Hyperglycemia secondary to steroids. Continue to monitor accuchecks. 7. Hyperlipidemia. Continue Lipitor. 8. Anemia of chronic disease. FOBT+. S/P 1 unit PRBC on 12/24/18. S/P 1 unit PRBC 12/30/18 with improvement. GI following, recommendations appreciated. No plans for endoscopic procedure for now. Continue IV iron. H&H stable, continue to monitor. Weekly Aranesp. Documentation Billing Clerk following, recommendations appreciated. 9. GI/DVT prophylaxis. Protonix/heparin 10. Patient is a full code. Case was discussed in detail with the patient regarding current diagnosis and treatment plan. All questions answered.
[2019-01-02] MEDS: Pantoprazole 40 mg EC Tab PO SCH (06:17)
[2019-01-02 07:13] LABS: HEMOGLOBIN 9.9 g/dL (12.0-16.0); MEAN CELL VOLUME 92.9 fl (80.0-105.0); MEAN CORPUSCULAR HEMOGLOBIN 30.5 pg (25.0-35.0); MEAN CORPUSCULAR HGB CONC 32.8 g/dl (31.0-37.0); MEAN PLATELET VOLUME 9.9 fl (7.0-11.0); RBC 3.25 10^6/uL (3.5-6.1); RED CELL DISTRIBUTION WIDTH 15.1 % (11.5-14.5); WHITE BLOOD COUNT 14.4 10^3/uL (4.5-11.0)
[2019-01-02 07:52] LABS: ALB/GLOB RATIO 0.9 (1.1-1.8); ALBUMIN 2.7 g/dL (3.0-4.8); CALCIUM 7.9 mg/dL (8.4-10.5)
[2019-01-02] MEDS: Insulin Regular 1 UNITS/0.01 ML ML SC SCH ×3 (07:53→17:41)
[2019-01-02] MEDS: Insulin Reg-MEDIUM-Coverage SC SCH ×4 (07:54→21:47)
[2019-01-02] MEDS: Arformoterol 15 mcg/2 ml Inh Sol IH SCH ×2 (08:05→19:29)
[2019-01-02] MEDS: Budesonide 0.5 mg/2 ml Inhal Susp UD IH SCH (08:12)
[2019-01-02] MEDS: Albuterol-Ipratrop 3 mg / 0.5 (3 ml) UD IH SCH ×3 (08:12→19:31)
[2019-01-02] MEDS: MethylPREDNISolone 40 mg Vial IVP SCH ×2 (10:44→21:45)
[2019-01-02 11:14] LABS: ALBUMIN 47.4 %; ALPHA-1 GLOBULIN 10.5 %
--- NOTE | 2019-01-02 14:58 | CP.PCM.PN ---
Subjective - Date & Time of Evaluation Date of Evaluation: 01/02/19 Time of Evaluation: 10:40 - Subjective Subjective: No fevers, not in distress on a chair. Objective - Vital Signs/Intake and Output Vital Signs (last 24 hours): Temp Pulse Resp BP Pulse Ox 97.6 F 65 21 140/59 L 96 01/01/19 07:56 01/01/19 11:44 01/01/19 07:56 01/01/19 11:44 01/01/19 07:56 Intake and Output: 01/01/19 01/01/19 06:59 18:59 Intake Total 1140 240 Balance 1140 240 - Medications Medications: Current Medications Albuterol/Ipratropium (Duoneb 3 Mg/0.5 Mg (3 Ml) Ud) 3 ml IH [id number] [facility] Last Admin: 01/01/19 13:48 Dose: 3 ml Albuterol/Ipratropium (Duoneb 3 Mg/0.5 Mg (3 Ml) Ud) 3 ml IH RQ2 PRN PRN Reason: Shortness of Breath Amlodipine Besylate (Norvasc) 10 mg PO DAILY [facility] Last Admin: 01/01/19 09:38 Dose: 10 mg Arformoterol Tartrate (Brovana) 15 mcg IH [id number] [facility] Last Admin: 01/01/19 07:32 Dose: 15 mcg Atorvastatin Calcium (Lipitor) 40 mg PO DAILY [facility] Last Admin: 01/01/19 09:38 Dose: 40 mg Budesonide (Pulmicort Respules) 0.5 mg IH [id number] [facility] Last Admin: 01/01/19 07:32 Dose: 0.5 mg Carvedilol (Coreg) 25 mg PO Q12H [facility] Last Admin: 01/01/19 05:35 Dose: 25 mg Clonidine HCl (Catapres Tts1 0.1 Mg/24 Hr) 1 patch TD QWK [facility] Last Admin: 12/31/18 11:01 Dose: 1 patch Dextrose (Dextrose 50% Inj) 0 ml IV STAT PRN; Protocol PRN Reason: Hypoglycemia Protocol Ergocalciferol (Drisdol 50,000 Intl Units Cap) 1 cap PO Q7D [facility] Last Admin: 12/27/18 12:02 Dose: 1 cap Glimepiride (Amaryl) 1 mg PO DAILY [facility] Last Admin: 01/01/19 09:39 Dose: 1 mg Heparin Sodium (Porcine) (Heparin) 5,000 units SC Q12 [facility]; Protocol Last Admin: 01/01/19 09:38 Dose: 5,000 units Hydralazine HCl (Apresoline) 10 mg IVP Q6 PRN PRN Reason: Systolic Blood Pressure Last Admin: 12/27/18 06:48 Dose: 10 mg Hydralazine HCl (Apresoline) 100 mg PO Q8H [facility] Last Admin: 01/01/19 11:44 Dose: 100 mg Dextrose (Dextrose 5% In Water 1000 Ml) 1,000 mls @ 0 mls/hr IV .Q0M PRN; Protocol PRN Reason: Hypoglycemia Protocol Insulin Detemir (Levemir) 5 unit SC HS [facility] Last Admin: 12/31/18 21:57 Dose: 5 units Insulin Human Regular (Humulin R Med) 0 units SC ACHS [facility]; Protocol Last Admin: 01/01/19 11:45 Dose: 7 units Insulin Human Regular (Humulin R) 6 units SC AC [facility] Last Admin: 01/01/19 11:45 Dose: 6 units Methylprednisolone (Solu-Medrol) 40 mg IVP Q12 [facility] Last Admin: 01/01/19 09:38 Dose: 40 mg Pantoprazole Sodium (Protonix Ec Tab) 40 mg PO 0600 [facility] Last Admin: 01/01/19 05:35 Dose: 40 mg Sevelamer HCl (Renagel) 800 mg PO WM [facility] Last Admin: 01/01/19 11:44 Dose: 800 mg Torsemide (Demadex) 20 mg PO DAILY [facility] Last Admin: 01/01/19 09:39 Dose: 20 mg - Labs Labs: 01/01/19 05:45 01/01/19 05:45 PT 13.4 SECONDS (9.4-12.5) H 12/23/18 10:56 INR 1.19 12/23/18 10:56 APTT 35.0 Seconds (26.9-38.3) 12/23/18 10:56 - Constitutional Appears: Chronically Ill - Head Exam Head Exam: NORMAL INSPECTION - Respiratory Exam Respiratory Exam: Decreased Breath Sounds - Cardiovascular Exam Cardiovascular Exam: +S1, +S2 - GI/Abdominal Exam GI & Abdominal Exam: Soft. absent: Tenderness Assessment and Plan - Assessment and Plan (Free Text) Plan: Asssessment systemic inflammatory response syndrome, consider sepsis due to UTI with Group B Strep and ESBL E. coli history of right pyelonephritis with ESBL E. 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
--- NOTE | 2019-01-02 15:45 | CP.PCM.PN ---
<Sarthak Obrien Debbi - Last Filed: 01/02/19 17:53> Subjective - Date & Time of Evaluation Date of Evaluation: 01/02/19 Time of Evaluation: 07:00 - Subjective Subjective: Nephrology progress note - Camille PGY - 2 Patient seen and examined at bedside. No acute overnight events. Patient was tried off of NC to examine pulse ox, she is maintaining her sats currently. Continues to deny any breathing issues. Objective - Vital Signs/Intake and Output Vital Signs (last 24 hours): Temp Pulse Resp BP Pulse Ox 97.7 F 69 20 112/79 98 01/02/19 08:16 01/02/19 11:46 01/02/19 08:16 01/02/19 11:46 01/02/19 08:16 Intake and Output: 01/02/19 01/02/19 06:59 18:59 Intake Total 180 Balance 180 - Medications Medications: Current Medications Albuterol/Ipratropium (Duoneb 3 Mg/0.5 Mg (3 Ml) Ud) 3 ml IH [id number] [facility] Last Admin: 01/02/19 13:46 Dose: Not Given Albuterol/Ipratropium (Duoneb 3 Mg/0.5 Mg (3 Ml) Ud) 3 ml IH RQ2 PRN PRN Reason: Shortness of Breath Amlodipine Besylate (Norvasc) 10 mg PO DAILY [facility] Last Admin: 01/02/19 10:45 Dose: 10 mg Arformoterol Tartrate (Brovana) 15 mcg IH [id number] [facility] Last Admin: 01/02/19 08:05 Dose: 15 mcg Atorvastatin Calcium (Lipitor) 40 mg PO DAILY [facility] Last Admin: 01/02/19 10:44 Dose: 40 mg Budesonide (Pulmicort Respules) 0.5 mg IH [id number] [facility] Last Admin: 01/02/19 08:12 Dose: 0.5 mg Carvedilol (Coreg) 25 mg PO Q12H [facility] Last Admin: 01/02/19 06:16 Dose: 25 mg Clonidine HCl (Catapres Tts1 0.1 Mg/24 Hr) 1 patch TD QWK [facility] Last Admin: 12/31/18 11:01 Dose: 1 patch Dextrose (Dextrose 50% Inj) 0 ml IV STAT PRN; Protocol PRN Reason: Hypoglycemia Protocol Ergocalciferol (Drisdol 50,000 Intl Units Cap) 1 cap PO Q7D [facility] Last Admin: 12/27/18 12:02 Dose: 1 cap Glimepiride (Amaryl) 1 mg PO DAILY [facility] Last Admin: 01/02/19 10:45 Dose: 1 mg Hydralazine HCl (Apresoline) 10 mg IVP Q6 PRN PRN Reason: Systolic Blood Pressure Last Admin: 12/27/18 06:48 Dose: 10 mg Hydralazine HCl (Apresoline) 100 mg PO Q8H [facility] Last Admin: 01/02/19 11:46 Dose: 100 mg Dextrose (Dextrose 5% In Water 1000 Ml) 1,000 mls @ 0 mls/hr IV .Q0M PRN; Protocol PRN Reason: Hypoglycemia Protocol Insulin Detemir (Levemir) 5 unit SC HS [facility] Last Admin: 01/01/19 21:08 Dose: 5 units Insulin Human Regular (Humulin R Med) 0 units SC ACHS [facility]; Protocol Last Admin: 01/02/19 11:53 Dose: 1 units Insulin Human Regular (Humulin R) 6 units SC AC [facility] Last Admin: 01/02/19 11:53 Dose: 6 units Methylprednisolone (Solu-Medrol) 30 mg IVP Q12 [facility] Last Admin: 01/02/19 10:44 Dose: 30 mg Pantoprazole Sodium (Protonix Ec Tab) 40 mg PO 0600 [facility] Last Admin: 01/02/19 06:17 Dose: 40 mg Sevelamer HCl (Renagel) 800 mg PO WM [facility] Last Admin: 01/02/19 11:45 Dose: 800 mg Torsemide (Demadex) 20 mg PO DAILY [facility] Last Admin: 01/02/19 10:45 Dose: 20 mg - Labs Labs: 01/02/19 07:00 01/02/19 07:00 PT 13.4 SECONDS (9.4-12.5) H 12/23/18 10:56 INR 1.19 12/23/18 10:56 APTT 35.0 Seconds (26.9-38.3) 12/23/18 10:56 - Constitutional Appears: Well - Head Exam Head Exam: ATRAUMATIC, NORMAL INSPECTION, NORMOCEPHALIC - Eye Exam Eye Exam: EOMI, Normal appearance, PERRL Pupil Exam: NORMAL ACCOMODATION, PERRL - ENT Exam ENT Exam: Mucous Membranes Moist, Normal Exam - Neck Exam Neck Exam: Full ROM, Normal Inspection. absent: Lymphadenopathy - Respiratory Exam Respiratory Exam: Clear to Ausculation Bilateral, NORMAL BREATHING PATTERN - Cardiovascular Exam Cardiovascular Exam: REGULAR RHYTHM, +S1, +S2. absent: Murmur - GI/Abdominal Exam GI & Abdominal Exam: Soft, Normal Bowel Sounds. absent: Tenderness - Extremities Exam Extremities Exam: Full ROM, Normal Capillary Refill, Normal Inspection. absent: Joint Swelling, Pedal Edema - Back Exam Back Exam: NORMAL INSPECTION - Neurological Exam Neurological Exam: Alert, Awake, CN II-XII Intact, Normal Gait, Oriented x3 - Psychiatric Exam Psychiatric exam: Normal Affect, Normal Mood - Skin Skin Exam: Dry, Intact, Normal Color, Warm Assessment and Plan - Assessment and Plan (Free Text) Assessment: 68 F with PMH of DM2, CKD stage IV (diabetic), HTN, anemia, fatty liver, UTI and obesity presents to [facility] for AMS 2/2 UTI. Nephrology consulted for Stage IV CKD, HTN, Anemia. Plan Diabetic Nephropathy CKD 4 - Continue with renagel 800 mg WM, - Patient and family would prefer to hold off on AVF creation; vein mapping is complete - Patient's GFR of 12 today - needs to initiate HD HTN - Continue norvasc 10, Coreg 12.5, Clonidine patch - Continue with Torsemide 20 mg daily - Stat dose of lasix 40 again today Hyperkalemia - Veltassa given today Anemia of CKD - Should administer another dose of Aranesp next week - GI on board for positive FOBT CKD with Mineral and Bone Disorder - Continue Renagel - Continue with Mansi Dispo: We have extensively discussed with the family the importance of placing the patient on hemodialysis, including explaining the possibility of and serious injury or permanent disability that may result from her not getting HD. Patient's family states that it understands, but is still resistant to the idea of HD and wants to follow up with patient's PMD regarding treatment. We will have a family meeting tonight to discuss options. <Darron Santiago - Last Filed: 01/03/19 07:31> Objective - Vital Signs/Intake and Output Vital Signs (last 24 hours): Temp Pulse Resp BP Pulse Ox 98.6 F 66 20 137/60 96 01/02/19 19:33 01/02/19 19:33 01/02/19 19:33 01/02/19 19:33 01/02/19 19:33 Intake and Output: 01/03/19 01/03/19 06:59 18:59 Intake Total 840 Balance 840 - Medications Medications: Current Medications Albuterol/Ipratropium (Duoneb 3 Mg/0.5 Mg (3 Ml) Ud) 3 ml IH [id number] [facility] Last Admin: 01/03/19 01:28 Dose: 3 ml Albuterol/Ipratropium (Duoneb 3 Mg/0.5 Mg (3 Ml) Ud) 3 ml IH RQ2 PRN PRN Reason: Shortness of Breath Amlodipine Besylate (Norvasc) 10 mg PO DAILY [facility] Last Admin: 01/02/19 10:45 Dose: 10 mg Arformoterol Tartrate (Brovana) 15 mcg IH [id number] [facility] Last Admin: 01/02/19 19:29 Dose: 15 mcg Atorvastatin Calcium (Lipitor) 40 mg PO DAILY [facility] Last Admin: 01/02/19 10:44 Dose: 40 mg Budesonide (Pulmicort Respules) 0.5 mg IH [id number] [facility] Last Admin: 01/02/19 08:12 Dose: 0.5 mg Carvedilol (Coreg) 25 mg PO Q12H [facility] Last Admin: 01/03/19 05:26 Dose: 25 mg Clonidine HCl (Catapres Tts1 0.1 Mg/24 Hr) 1 patch TD QWK [facility] Last Admin: 12/31/18 11:01 Dose: 1 patch Dextrose (Dextrose 50% Inj) 0 ml IV STAT PRN; Protocol PRN Reason: Hypoglycemia Protocol Ergocalciferol (Drisdol 50,000 Intl Units Cap) 1 cap PO Q7D [facility] Last Admin: 12/27/18 12:02 Dose: 1 cap Glimepiride (Amaryl) 1 mg PO DAILY [facility] Last Admin: 01/02/19 10:45 Dose: 1 mg Hydralazine HCl (Apresoline) 10 mg IVP Q6 PRN PRN Reason: Systolic Blood Pressure Last Admin: 12/27/18 06:48 Dose: 10 mg Hydralazine HCl (Apresoline) 100 mg PO Q8H [facility] Last Admin: 01/03/19 05:26 Dose: 100 mg Dextrose (Dextrose 5% In Water 1000 Ml) 1,000 mls @ 0 mls/hr IV .Q0M PRN; Protocol PRN Reason: Hypoglycemia Protocol Insulin Detemir (Levemir) 5 unit SC HS [facility] Last Admin: 01/02/19 21:45 Dose: 5 units Insulin Human Regular (Humulin R Med) 0 units SC ACHS [facility]; Protocol Last Admin: 01/02/19 21:47 Dose: 2 units Insulin Human Regular (Humulin R) 6 units SC AC [facility] Last Admin: 01/02/19 17:41 Dose: 6 units Methylprednisolone (Solu-Medrol) 30 mg IVP Q12 [facility] Last Admin: 01/02/19 21:45 Dose: 30 mg Pantoprazole Sodium (Protonix Ec Tab) 40 mg PO 0600 [facility] Last Admin: 01/03/19 05:48 Dose: 40 mg Sevelamer HCl (Renagel) 800 mg PO WM [facility] Last Admin: 01/02/19 17:42 Dose: 800 mg Sodium Polystyrene Sulfonate (Kayexalate) 15 gm PO ONCE ONE Stop: 01/03/19 07:15 Torsemide (Demadex) 20 mg PO DAILY [facility] Last Admin: 01/02/19 10:45 Dose: 20 mg - Labs Labs: 01/03/19 05:40 01/03/19 05:40 PT 13.4 SECONDS (9.4-12.5) H 12/23/18 10:56 INR 1.19 12/23/18 10:56 APTT 35.0 Seconds (26.9-38.3) 12/23/18 10:56 Attending/Attestation - Attestation I have personally seen and examined this patient.: Yes I have fully participated in the care of the patient.: Yes I have reviewed all pertinent clinical information, including history, physical exam and plan: Yes Notes (Text): Patient seen and examined; I agree with the resident's note as above with the following additions/edits: Patient with htn, DM, late CKD IV/V, admitted with E coli ESBL UTI, worsening renal failure; Had extensive meeting with patient/family this evening lasting over half hour with high school social studies teacher translating; discussed the need for initiating HD during this admission due to volume excess and electrolyte imbalance in the setting of progressive CKD, as well to prevent the need for emergent dialysis in the future; I explained that I had spoken to PMD earlier this morning and that he is comfortable with whatever decision is needed medically; I explained why I felt that their insistence on patient being discharged in order to go see PMD to help with decision making would be a major liability for us because in our professional opinion, patient needs to start dialysis as soon as possible and that an outpatient f/u would delay this process in a manner that can lead to patient's decompensation; I also explained that refusing dialysis is the patient's choice but that there is a risk for sudden and/or decompensated respiratory failure in this case; I also mentioned that should patient refuse dialysis, we would still try to manage her volume and electrolyte status via medical management but this is not ideal; I was informed around 8:30 pm that patient finally decided to agree for initiat ion of HD; we will keep patient NPO past MN and get HD catheter placement tomorrow with plan to initiate HD tomorrow as well.
--- NOTE | 2019-01-02 18:54 | CP.PCM.PN ---
<Marcelo Cole - Last Filed: 01/02/19 18:51> Subjective - Date & Time of Evaluation Date of Evaluation: 01/02/19 Time of Evaluation: 08:00 - Subjective Subjective: Marcelo Cole PGY1 Medicine Progress Note for Dr. Castanon Patient was seen and examined at bedside this morning. Vital signs stable. Patient denies cp, sob, abdominal pain, n/v/d. She was explained again that she needs dialysis however patient (and family) want to discuss with PMD prior to decision. Patient thoroughly explained the importance of the situation and the risks involved with prolonging dialysis. Plan for family meeting. radio repairman was used during interview: ID#[id number]. A full 12 point ROS was conducted and unremarkable except as stated above. Objective - Vital Signs/Intake and Output Vital Signs (last 24 hours): Temp Pulse Resp BP Pulse Ox 98.6 F 66 20 137/60 96 01/02/19 17:21 01/02/19 18:46 01/02/19 17:21 01/02/19 18:46 01/02/19 17:21 Intake and Output: 01/02/19 01/02/19 06:59 18:59 Intake Total 180 Balance 180 - Medications Medications: Current Medications Albuterol/Ipratropium (Duoneb 3 Mg/0.5 Mg (3 Ml) Ud) 3 ml IH [id number] [facility] Last Admin: 01/02/19 13:46 Dose: Not Given Albuterol/Ipratropium (Duoneb 3 Mg/0.5 Mg (3 Ml) Ud) 3 ml IH RQ2 PRN PRN Reason: Shortness of Breath Amlodipine Besylate (Norvasc) 10 mg PO DAILY [facility] Last Admin: 01/02/19 10:45 Dose: 10 mg Arformoterol Tartrate (Brovana) 15 mcg IH [id number] [facility] Last Admin: 01/02/19 08:05 Dose: 15 mcg Atorvastatin Calcium (Lipitor) 40 mg PO DAILY [facility] Last Admin: 01/02/19 10:44 Dose: 40 mg Budesonide (Pulmicort Respules) 0.5 mg IH [id number] [facility] Last Admin: 01/02/19 08:12 Dose: 0.5 mg Carvedilol (Coreg) 25 mg PO Q12H [facility] Last Admin: 01/02/19 18:46 Dose: 25 mg Clonidine HCl (Catapres Tts1 0.1 Mg/24 Hr) 1 patch TD QWK [facility] Last Admin: 12/31/18 11:01 Dose: 1 patch Dextrose (Dextrose 50% Inj) 0 ml IV STAT PRN; Protocol PRN Reason: Hypoglycemia Protocol Ergocalciferol (Drisdol 50,000 Intl Units Cap) 1 cap PO Q7D [facility] Last Admin: 12/27/18 12:02 Dose: 1 cap Glimepiride (Amaryl) 1 mg PO DAILY [facility] Last Admin: 01/02/19 10:45 Dose: 1 mg Hydralazine HCl (Apresoline) 10 mg IVP Q6 PRN PRN Reason: Systolic Blood Pressure Last Admin: 12/27/18 06:48 Dose: 10 mg Hydralazine HCl (Apresoline) 100 mg PO Q8H [facility] Last Admin: 01/02/19 11:46 Dose: 100 mg Dextrose (Dextrose 5% In Water 1000 Ml) 1,000 mls @ 0 mls/hr IV .Q0M PRN; Protocol PRN Reason: Hypoglycemia Protocol Insulin Detemir (Levemir) 5 unit SC HS [facility] Last Admin: 01/01/19 21:08 Dose: 5 units Insulin Human Regular (Humulin R Med) 0 units SC ACHS [facility]; Protocol Last Admin: 01/02/19 17:41 Dose: 3 units Insulin Human Regular (Humulin R) 6 units SC AC [facility] Last Admin: 01/02/19 17:41 Dose: 6 units Methylprednisolone (Solu-Medrol) 30 mg IVP Q12 [facility] Last Admin: 01/02/19 10:44 Dose: 30 mg Pantoprazole Sodium (Protonix Ec Tab) 40 mg PO 0600 [facility] Last Admin: 01/02/19 06:17 Dose: 40 mg Sevelamer HCl (Renagel) 800 mg PO WM [facility] Last Admin: 01/02/19 17:42 Dose: 800 mg Torsemide (Demadex) 20 mg PO DAILY [facility] Last Admin: 01/02/19 10:45 Dose: 20 mg - Labs Labs: 01/02/19 07:00 01/02/19 07:00 PT 13.4 SECONDS (9.4-12.5) H 12/23/18 10:56 INR 1.19 12/23/18 10:56 APTT 35.0 Seconds (26.9-38.3) 12/23/18 10:56 - Constitutional Appears: No Acute Distress - Head Exam Head Exam: ATRAUMATIC, NORMAL INSPECTION, NORMOCEPHALIC - Eye Exam Eye Exam: EOMI - ENT Exam ENT Exam: Mucous Membranes Moist - Respiratory Exam Respiratory Exam: Wheezes (mild wheezing ). absent: Rales, Rhonchi, Respiratory Distress - Cardiovascular Exam Cardiovascular Exam: RRR, +S1, +S2 - GI/Abdominal Exam GI & Abdominal Exam: Soft, Normal Bowel Sounds. absent: Tenderness - Extremities Exam Extremities Exam: Full ROM, Normal Capillary Refill. absent: Joint Swelling, Pedal Edema Additional comments: +2 bilateral pitting edema - Neurological Exam Neurological Exam: Alert, Awake, CN II-XII Intact, Normal Gait, Oriented x3 - Psychiatric Exam Psychiatric exam: Normal Affect, Normal Mood - Skin Skin Exam: Dry, Intact, Normal Color, Warm Assessment and Plan - Assessment and Plan (Free Text) Assessment: Patient is a 68 y/o chilean speaking F with PMHx of CKD, DM2, HTN, HLD, anemia who presented to ED for change in mental status, lethargy and weakness. Admitted for toxic metabolic encephalopathy 2/2 ESBL UTI. Also found to have Uncontrolled HTN and shortness of breath 2/2 undiagnosed Asthma. Plan: Worsening CKD - Discussed extensively with patient about importance of HD. Patient is still prolonging HD, she wants to d/w PMD first. Plan for family meeting today. Nephro is aware of the situation. - Cr uptrending, 3.6 (3.0 initially) - Biopsy: advanced diabetic nephropathy. - continue home renvela and ergocalciferol - Nephro following (Dr. Santiago). Recs appreciated. Shortness of Breath 2/2 Undiagnosed Asthma - tapered methylprednisolone 30 IV q12 - c/w pulmicort, duonebs, torsemide - Pulm was consulted (Dr. Morton). Recs were appreciated. Patient needs outpat ient PFT evaluation. Toxic Metabolic Encephalopathy 2/2 ESBL UTI - resolved - completed IV merrem for 10 days - ID is on consult (Dr. Quiros). Recs appreciated. - s/p IR guided right arm PICC line in place (12/29) - Leukocytosis resolved. Afebrile. HTN - uncontrolled - c/w amlodipine 10mg PO daily, carvedilol 25mg PO q12, hydralazine 100mg PO q8, and clonidine - Medications adjusted as per nephrology (Dr. Santiago) - Hx of HTN Anemia of CKD - Hgb stable - c/w IV iron - Hgb was 7.8 on admission, s/p x2 pRBC total - Heme (Dr. Vernon) is on board. - GI was on consult (Dr. Narayan) and recommended outpatient endoscopic workup Hx DM2 - Continue glimepiride - ISS (med) - Accuchecks Hx HLD - continue atorvastatin DVT/GI PPx: Hep SC/protonix Diet: CCD Dispo: Continue to monitor patient on the floor. Plan for family meeting in regards to discussion of dialysis. Case was discussed and reviewed with Attending Physician, Dr. Castanon. <Brisa Castanon R - Last Filed: 01/03/19 13:48> Objective - Vital Signs/Intake and Output Vital Signs (last 24 hours): Temp Pulse Resp BP Pulse Ox 97.9 F 71 20 157/61 H 95 01/03/19 06:00 01/03/19 06:00 01/03/19 06:00 01/03/19 10:26 01/03/19 06:00 Intake and Output: 01/03/19 01/03/19 06:59 18:59 Intake Total 840 0 Balance 840 0 - Medications Medications: Current Medications Albuterol/Ipratropium (Duoneb 3 Mg/0.5 Mg (3 Ml) Ud) 3 ml IH [id number] [facility] Last Admin: 01/03/19 08:14 Dose: 3 ml Albuterol/Ipratropium (Duoneb 3 Mg/0.5 Mg (3 Ml) Ud) 3 ml IH RQ2 PRN PRN Reason: Shortness of Breath Amlodipine Besylate (Norvasc) 10 mg PO DAILY [facility] Last Admin: 01/03/19 10:26 Dose: 10 mg Arformoterol Tartrate (Brovana) 15 mcg IH [id number] [facility] Last Admin: 01/03/19 08:13 Dose: 15 mcg Atorvastatin Calcium (Lipitor) 40 mg PO DAILY [facility] Last Admin: 01/03/19 10:27 Dose: 40 mg Budesonide (Pulmicort Respules) 0.5 mg IH [id number] [facility] Last Admin: 01/03/19 08:14 Dose: 0.5 mg Carvedilol (Coreg) 25 mg PO Q12H [facility] Last Admin: 01/03/19 05:26 Dose: 25 mg Clonidine HCl (Catapres Tts1 0.1 Mg/24 Hr) 1 patch TD QWK [facility] Last Admin: 12/31/18 11:01 Dose: 1 patch Dextrose (Dextrose 50% Inj) 0 ml IV STAT PRN; Protocol PRN Reason: Hypoglycemia Protocol Ergocalciferol (Drisdol 50,000 Intl Units Cap) 1 cap PO Q7D [facility] Last Admin: 01/03/19 10:31 Dose: 1 cap Glimepiride (Amaryl) 1 mg PO DAILY [facility] Last Admin: 01/03/19 10:27 Dose: 1 mg Hydralazine HCl (Apresoline) 10 mg IVP Q6 PRN PRN Reason: Systolic Blood Pressure Last Admin: 12/27/18 06:48 Dose: 10 mg Hydralazine HCl (Apresoline) 100 mg PO Q8H [facility] Last Admin: 01/03/19 12:39 Dose: Not Given Dextrose (Dextrose 5% In Water 1000 Ml) 1,000 mls @ 0 mls/hr IV .Q0M PRN; Protocol PRN Reason: Hypoglycemia Protocol Insulin Detemir (Levemir) 5 unit SC HS [facility] Last Admin: 01/02/19 21:45 Dose: 5 units Insulin Human Regular (Humulin R Med) 0 units SC ACHS [facility]; Protocol Last Admin: 01/03/19 12:39 Dose: Not Given Insulin Human Regular (Humulin R) 6 units SC AC [facility] Last Admin: 01/03/19 12:39 Dose: Not Given Methylprednisolone (Solu-Medrol) 20 mg IVP Q12 [facility] Last Admin: 01/03/19 10:27 Dose: 20 mg Pantoprazole Sodium (Protonix Ec Tab) 40 mg PO 0600 [facility] Last Admin: 01/03/19 05:48 Dose: 40 mg Sevelamer HCl (Renagel) 800 mg PO WM [facility] Last Admin: 01/03/19 12:40 Dose: Not Given Torsemide (Demadex) 20 mg PO DAILY [facility] Last Admin: 01/03/19 10:27 Dose: 20 mg - Labs Labs: 01/03/19 05:40 01/03/19 10:30 PT 13.4 SECONDS (9.4-12.5) H 12/23/18 10:56 INR 1.19 12/23/18 10:56 APTT 35.0 Seconds (26.9-38.3) 12/23/18 10:56 Attending/Attestation - Attestation I have personally seen and examined this patient.: Yes I have fully participated in the care of the patient.: Yes I have reviewed all pertinent clinical information, including history, physical exam and plan: Yes Notes (Text): Patient seen and examined by me with resident at 9:30AM on 01/02/19. Case including HPI, physical exam, and assessment and plan discussed with resident. Agree with above with following additions/corrections. Patient is a 68-year-old female with past medical history significant for chronic kidney disease, type 2 diabetes, hypertension, hyperlipidemia, and anemia that presented to the emergency room for change in mental status, lethargy, and weakness. restoration technician # [id number] used for translation. Patient states she feels "fine." States she is not feeling short of breath. Still with pain and worsening of swelling in her legs. Patient understands that her renal function is worsening. Patient denies chest pain or palpitations. No fevers or chills. No headaches or dizziness. No dysuria or burning with urination. No diarrhea. No nausea, vomiting, or abdominal pain. Physical exam: General: Awake and alert lying in bed in no acute distress HEENT: Normocephalic, atraumatic. Extraocular muscles intact, pupils equal and reactive, no scleral icterus. Oropharynx is pink and moist. No pharyngeal erythema or exudate appreciated. Neck is supple. Cardiovascular: Regular rhythm. Normal S1 and S2. No murmurs, rubs, or gallops appreciated Pulmonary: Still with minimal use of abdominal accessory muscles. Decreased breath sounds. No rhonchi, rales, or wheezing appreciated. Gastrointestinal: Soft, nondistended. Nontender. Positive bowel sounds all 4 quadrants. No guarding. Musculoskeletal: Moves all extremities. No calf tenderness. Bilateral lower extremity pitting edema and tenderness. Central nervous system: AAOx3. Dermatologic: Skin warm and dry. Assessment and plan: Patient is a 68-year-old female with past medical history significant for chronic kidney disease, type 2 diabetes, hypertension, hyp erlipidemia, and anemia that presented to the emergency room for change in mental status, lethargy, and weakness. 1. Worsening of CKD. Per institution librarian, patient needs dialysis. Nephrology following, recommendations appreciated. Dr. Santiago will discuss dialysis with patient's primary care doctor again as patient states she will only do what her primary care doctor says. Creatinine uptrending. Importance of dialysis and risks of not doing dialysis discussed at length with patient. Vein mapping com pleted. Continue Renagel. Continue Torsemide. Chest xray showed no active disease. 2. Dyspnea. Chest xray showed no active disease. Continue nebulizer treatments. Continue Solu-medro, taper. Continue pulmicort and Brovana. Pulmonary following, recommendations appreciated. Possible undiagnosed asthma per pulmonary. Will need outpatient PFTs, discussed at length with patient and patient's daughter. Also may be secondary to worsening renal function and need for dialysis, discussed with patient and family. Chest CT per radiologist showed no acute findings; stable pulmonary parenchymal findings including scarring/postoperative changes right lung; chronic interstitial lung disease, mosaic pattern; no suspicious pulmonary nodules, masses, or infiltrates. V/Q scan low probability for pulmonary embolism. 3. UTI. Urine culture positive for ESBL and Beta hemolytic Strep Group B. Continue Merrem day #10. ID following, recommendations appreciated. Patient afebrile and no leukocytosis. Blood cultures with no growth. 4. Toxic metabolic encephalopathy. Likey secondary to UTI. Resolved. Neurology following, recommendations appreciated. Head CT per radiologist showed no acute intracranial pathology identified. Brain MRI per radiologist showed no acute intracranial findings. Continue supportive care. 5. Essential hypertension. Continue Norvasc, Coreg, Clonidine patch, hydralazine, and torsemide. 6. DM2. Continue insulin sliding scale, Continue amaryl. Continue humulin R AC. Continue levemir. Hyperglycemia secondary to steroids. Maybe need to decrease AC insulin as steroids are tapered off. Continue to monitor accuchecks. 7. Hyperlipidemia. Continue Lipitor. 8. Anemia of chronic disease. FOBT+. S/P 1 unit PRBC on 12/24/18. S/P 1 unit PRBC 12/30/18 with improvent. GI recommendations appreciated, no plans for endoscopic procedure for now. S/P IV iron. H&H stable, continue to monitor. Weekly Aranesp. Audio/Video Technician following, recommendations appreciated. 9. GI/DVT prophylaxis. Protonix/heparin 10. Patient is a full code. Case was discussed in detail with the patient regarding current diagnosis and treatment plan. All questions answered.
[2019-01-02] MEDS: Insulin Detemir 100 units/ml Vial (Levemir) SC SCH (21:45)
[2019-01-03] MEDS: Albuterol-Ipratrop 3 mg / 0.5 (3 ml) UD IH SCH ×5 (01:28→21:07)
[2019-01-03 05:47] LABS: HEMOGLOBIN 10.8 g/dL (12.0-16.0); MEAN CELL VOLUME 93.9 fl (80.0-105.0); MEAN CORPUSCULAR HEMOGLOBIN 31.1 pg (25.0-35.0); MEAN CORPUSCULAR HGB CONC 33.1 g/dl (31.0-37.0); MEAN PLATELET VOLUME 9.8 fl (7.0-11.0); RBC 3.47 10^6/uL (3.5-6.1); RED CELL DISTRIBUTION WIDTH 15.5 % (11.5-14.5); WHITE BLOOD COUNT 14.8 10^3/uL (4.5-11.0)
[2019-01-03] MEDS: Pantoprazole 40 mg EC Tab PO SCH (05:48)
[2019-01-03 06:03] LABS: ALB/GLOB RATIO 0.9 (1.1-1.8); ALBUMIN 2.9 g/dL (3.0-4.8)
[2019-01-03] MEDS: Insulin Regular 1 UNITS/0.01 ML ML SC SCH ×3 (08:06→16:54)
[2019-01-03] MEDS: Insulin Reg-MEDIUM-Coverage SC SCH ×4 (08:07→22:21)
[2019-01-03] MEDS: Arformoterol 15 mcg/2 ml Inh Sol IH SCH ×2 (08:13→19:17)
[2019-01-03] MEDS: Budesonide 0.5 mg/2 ml Inhal Susp UD IH SCH ×2 (08:14→19:17)
--- NOTE | 2019-01-03 10:08 | RAD ---
Date of service: 01/03/2019 HISTORY: Line insertion COMPARISON: Comparison chest 12/30/2018 FINDINGS: Interval placement right IJ large bore dual lumen venous access catheter with tip in the SVC. No change right sided PICC line. LUNGS: Poor inspiration with low lung volumes, crowded bronchovascular markings and mild bibasilar atelectasis left greater than right PLEURA: No significant pleural effusion identified, no pneumothorax apparent. CARDIOVASCULAR: Mild aortic tic atherosclerotic calcification present. Heart appears mildly enlarged.. No pulmonary vascular congestion. OSSEOUS STRUCTURES: No significant abnormalities. VISUALIZED UPPER ABDOMEN: Normal. OTHER FINDINGS: None. IMPRESSION: In situ right IJ central venous access catheter as well as right sided PICC line unchanged. Poor inspiration with low lung volumes, crowded bronchovascular markings and mild bibasilar atelectasis left greater than right
--- NOTE | 2019-01-03 10:21 | PCM.PROC ---
Procedures Attestation:: I certify that I have explained the specified Operation(s) or Procedure(s), risks, benefits and reasonable alternatives to the Patient and/or other person responsible. The opportunity was given to ask questions and all questions answered - Central Line Placement Right Internal Jugular Hemodialysis Access Aseptic technique was employed throughout the procedure: Hand Hygiene done prior to procedure, Full sterile barriers (mask, hair cover, sterile gown, sterile gl oves), Full body sterile drape, Chloraprep Antiseptic: 30 second prep for IJ or SC sites CVP Time Out Performed: Yes Pt. Placed on Pulse Ox Monitor: No Central Line Prep: Chlorhexidine-Alcohol Combination Local Anesthesia Used: Lidocaine 1% Amount of Anesthesia Used (mls): 3 Ultrasound Used for Placement: Yes Central Line Length: 16 cm Post Procedure: Sutured in Place, Good Blood Return, All Ports Aspirated, Flushed, Capped, Sterile Dressing Applied Secured by: Suture Post procedure dressing: Clear vapor permeable, Chlorhexidine disc (Biopatch) Post Procedure X-Ray: Yes Patient Tolerated Procedure: Well, No Complications Immediate Complications: None Additional Comments: Written consent obtained and on chart. No immediate complications noted.
[2019-01-03] MEDS: MethylPREDNISolone 40 mg Vial IVP SCH ×2 (10:27→22:20)
[2019-01-03] MEDS: Ergocalciferol 50,000 Intl Units Cap PO SCH (10:31)
--- NOTE | 2019-01-03 11:02 | CP.PCM.PN ---
<Marcelo Cole - Last Filed: 01/03/19 10:58> Subjective - Date & Time of Evaluation Date of Evaluation: 01/03/19 Time of Evaluation: 08:00 - Subjective Subjective: Marcelo Cole PGY1 Medicine Progress Note for Dr. Castanon Patient was seen and examined at bedside this morning. Vital signs stable. Yesterday, patient and family had agreed to insertion of HD catheter for initiation of dialysis. Patient had successful insertion of R-IJ HD catheter via surgical team prior to interview. Urdu adjuster piano action was used (ID#[id number]). She denies cp, sob, abdominal pain, n/v/d. A full 12 point ROS was conducted and unremarkable except as stated above. Objective - Vital Signs/Intake and Output Vital Signs (last 24 hours): Temp Pulse Resp BP Pulse Ox 97.9 F 71 20 157/61 H 95 01/03/19 06:00 01/03/19 06:00 01/03/19 06:00 01/03/19 10:26 01/03/19 06:00 Intake and Output: 01/03/19 01/03/19 06:59 18:59 Intake Total 840 0 Balance 840 0 - Medications Medications: Current Medications Albuterol/Ipratropium (Duoneb 3 Mg/0.5 Mg (3 Ml) Ud) 3 ml IH [id number] [facility] Last Admin: 01/03/19 08:14 Dose: 3 ml Albuterol/Ipratropium (Duoneb 3 Mg/0.5 Mg (3 Ml) Ud) 3 ml IH RQ2 PRN PRN Reason: Shortness of Breath Amlodipine Besylate (Norvasc) 10 mg PO DAILY [facility] Last Admin: 01/03/19 10:26 Dose: 10 mg Arformoterol Tartrate (Brovana) 15 mcg IH [id number] [facility] Last Admin: 01/03/19 08:13 Dose: 15 mcg Atorvastatin Calcium (Lipitor) 40 mg PO DAILY [facility] Last Admin: 01/03/19 10:27 Dose: 40 mg Budesonide (Pulmicort Respules) 0.5 mg IH [id number] [facility] Last Admin: 01/03/19 08:14 Dose: 0.5 mg Carvedilol (Coreg) 25 mg PO Q12H [facility] Last Admin: 01/03/19 05:26 Dose: 25 mg Clonidine HCl (Catapres Tts1 0.1 Mg/24 Hr) 1 patch TD QWK [facility] Last Admin: 12/31/18 11:01 Dose: 1 patch Dextrose (Dextrose 50% Inj) 0 ml IV STAT PRN; Protocol PRN Reason: Hypoglycemia Protocol Ergocalciferol (Drisdol 50,000 Intl Units Cap) 1 cap PO Q7D [facility] Last Admin: 01/03/19 10:31 Dose: 1 cap Glimepiride (Amaryl) 1 mg PO DAILY [facility] Last Admin: 01/03/19 10:27 Dose: 1 mg Hydralazine HCl (Apresoline) 10 mg IVP Q6 PRN PRN Reason: Systolic Blood Pressure Last Admin: 12/27/18 06:48 Dose: 10 mg Hydralazine HCl (Apresoline) 100 mg PO Q8H [facility] Last Admin: 01/03/19 05:26 Dose: 100 mg Dextrose (Dextrose 5% In Water 1000 Ml) 1,000 mls @ 0 mls/hr IV .Q0M PRN; Protocol PRN Reason: Hypoglycemia Protocol Insulin Detemir (Levemir) 5 unit SC HS [facility] Last Admin: 01/02/19 21:45 Dose: 5 units Insulin Human Regular (Humulin R Med) 0 units SC ACHS [facility]; Protocol Last Admin: 01/03/19 08:07 Dose: Not Given Insulin Human Regular (Humulin R) 6 units SC AC [facility] Last Admin: 01/03/19 08:06 Dose: Not Given Methylprednisolone (Solu-Medrol) 20 mg IVP Q12 [facility] Last Admin: 01/03/19 10:27 Dose: 20 mg Pantoprazole Sodium (Protonix Ec Tab) 40 mg PO 0600 [facility] Last Admin: 01/03/19 05:48 Dose: 40 mg Sevelamer HCl (Renagel) 800 mg PO WM [facility] Last Admin: 01/03/19 10:31 Dose: Not Given Torsemide (Demadex) 20 mg PO DAILY [facility] Last Admin: 01/03/19 10:27 Dose: 20 mg - Labs Labs: 01/03/19 05:40 01/03/19 05:40 PT 13.4 SECONDS (9.4-12.5) H 12/23/18 10:56 INR 1.19 12/23/18 10:56 APTT 35.0 Seconds (26.9-38.3) 12/23/18 10:56 - Constitutional Appears: No Acute Distress - Head Exam Head Exam: ATRAUMATIC, NORMAL INSPECTION, NORMOCEPHALIC - Eye Exam Eye Exam: EOMI, Normal appearance - ENT Exam ENT Exam: Mucous Membranes Moist - Neck Exam Additional comments: R-IJ trialysis catheter is in place. - Respiratory Exam Respiratory Exam: Clear to Ausculation Bilateral, NORMAL BREATHING PATTERN. absent: Rales, Rhonchi, Wheezes, Respiratory Distress - Cardiovascular Exam Cardiovascular Exam: RRR, +S1, +S2 - GI/Abdominal Exam GI & Abdominal Exam: Soft, Normal Bowel Sounds. absent: Tenderness - Extremities Exam Extremities Exam: Full ROM, Normal Capillary Refill, Tenderness (mild tenderness to palpation of lower ext. ). absent: Pedal Edema Additional comments: +2 pitting edema bilateral lower ext. - Neurological Exam Neurological Exam: Alert, Awake, Oriented x3 - Psychiatric Exam Psychiatric exam: Normal Affect, Normal Mood - Skin Skin Exam: Dry, Intact, Normal Color, Warm Assessment and Plan - Assessment and Plan (Free Text) Assessment: Patient is a 68 y/o tamazight speaking F with PMHx of CKD, DM2, HTN, HLD, anemia who presented to ED for change in mental status, lethargy and weakness. Admitted for toxic metabolic encephalopathy 2/2 ESBL UTI which has now resolved. Also fo und to have Uncontrolled HTN, Shortness of Breath 2/2 Undiagnosed Asthma, and Worsening CKD - requiring hemodialysis. Plan: Worsening CKD - Advanced DM Nephropathy - s/p trialysis catheter at the R-IJ (01/03) - Plan for HD today - BUN/Cr 93/3.9 uptrending (Cr 3.0 on admission) - continue home renvela and ergocalciferol - Nephro following (Dr. Santiago). Recs appreciated. Shortness of Breath 2/2 Undiagnosed Asthma - wheezing improving; tapered methylprednisolone 20 IV q12 - c/w pulmicort, duonebs, torsemide - Pulm was consulted (Dr. Morton). Recs were appreciated. Patient needs outpatient PFT evaluation. Toxic Metabolic Encephalopathy 2/2 ESBL UTI - resolved - completed IV merrem for 10 days - ID is on consult (Dr. Quiros). Recs appreciated. - s/p IR guided right arm PICC line in place (12/29) - Leukocytosis resolved. Afebrile. Uncontrolled HTN - Improved during hospital course. HTN likely 2/2 CKD. - c/w amlodipine 10mg PO daily, carvedilol 25mg PO q12, hydralazine 100mg PO q8, and clonidine - Medications adjusted as per nephrology (Dr. Santiago) - Hx of HTN Anemia of CKD - Hgb stable - c/w IV iron - Hgb was 7.8 on admission, s/p x2 pRBC total - Heme (Dr. Veronn) is on board. - GI was on consult (Dr. Narayan) and recommended outpatient endoscopic workup Hx DM2 - Continue glimepiride - ISS (med) - Accuchecks Hx HLD - continue atorvastatin DVT/GI PPx: Hep SC/protonix Diet: Renal Diet Dispo: Continue to monitor patient on the floor. She is s/p trialysis catheter. Plan for HD. Case was discussed and reviewed with Attending Physician, Dr. Castanon. <Brisa Castanon R - Last Filed: 01/03/19 17:03> Objective - Vital Signs/Intake and Output Vital Signs (last 24 hours): Temp Pulse Resp BP Pulse Ox 97 F L 79 14 158/78 H 96 01/03/19 12:00 01/03/19 12:00 01/03/19 12:00 01/03/19 12:00 01/03/19 12:00 Intake and Output: 01/03/19 01/03/19 06:59 18:59 Intake Total 840 420 Output Total 400 Balance 840 20 - Medications Medications: Current Medications Albuterol/Ipratropium (Duoneb 3 Mg/0.5 Mg (3 Ml) Ud) 3 ml IH [id number] [facility] Last Admin: 01/03/19 13:55 Dose: Not Given Albuterol/Ipratropium (Duoneb 3 Mg/0.5 Mg (3 Ml) Ud) 3 ml IH RQ2 PRN PRN Reason: Shortness of Breath Amlodipine Besylate (Norvasc) 10 mg PO DAILY [facility] Last Admin: 01/03/19 10:26 Dose: 10 mg Arformoterol Tartrate (Brovana) 15 mcg IH [id number] [facility] Last Admin: 01/03/19 08:13 Dose: 15 mcg Atorvastatin Calcium (Lipitor) 40 mg PO DAILY [facility] Last Admin: 01/03/19 10:27 Dose: 40 mg Budesonide (Pulmicort Respules) 0.5 mg IH [id number] [facility] Last Admin: 01/03/19 08:14 Dose: 0.5 mg Carvedilol (Coreg) 25 mg PO Q12H [facility] Last Admin: 01/03/19 05:26 Dose: 25 mg Clonidine HCl (Catapres Tts1 0.1 Mg/24 Hr) 1 patch TD QWK [facility] Last Admin: 12/31/18 11:01 Dose: 1 patch Dextrose (Dextrose 50% Inj) 0 ml IV STAT PRN; Protocol PRN Reason: Hypoglycemia Protocol Ergocalciferol (Drisdol 50,000 Intl Units Cap) 1 cap PO Q7D [facility] Last Admin: 01/03/19 10:31 Dose: 1 cap Glimepiride (Amaryl) 1 mg PO DAILY [facility] Last Admin: 01/03/19 10:27 Dose: 1 mg Hydralazine HCl (Apresoline) 10 mg IVP Q6 PRN PRN Reason: Systolic Blood Pressure Last Admin: 12/27/18 06:48 Dose: 10 mg Hydralazine HCl (Apresoline) 100 mg PO Q8H [facility] Last Admin: 01/03/19 12:39 Dose: Not Given Dextrose (Dextrose 5% In Water 1000 Ml) 1,000 mls @ 0 mls/hr IV .Q0M PRN; Protocol PRN Reason: Hypoglycemia Protocol Insulin Detemir (Levemir) 5 unit SC HS [facility] Last Admin: 01/02/19 21:45 Dose: 5 units Insulin Human Regular (Humulin R Med) 0 units SC ACHS [facility]; Protocol Last Admin: 01/03/19 16:54 Dose: 7 units Insulin Human Regular (Humulin R) 6 units SC AC [facility] Last Admin: 01/03/19 16:54 Dose: 6 units Methylprednisolone (Solu-Medrol) 20 mg IVP Q12 [facility] Last Admin: 01/03/19 10:27 Dose: 20 mg Pantoprazole Sodium (Protonix Ec Tab) 40 mg PO 0600 [facility] Last Admin: 01/03/19 05:48 Dose: 40 mg Sevelamer HCl (Renagel) 800 mg PO WM [facility] Last Admin: 01/03/19 16:54 Dose: 800 mg Torsemide (Demadex) 20 mg PO DAILY [facility] Last Admin: 01/03/19 10:27 Dose: 20 mg - Labs Labs: 01/03/19 05:40 01/03/19 10:30 PT 13.4 SECONDS (9.4-12.5) H 12/23/18 10:56 INR 1.19 12/23/18 10:56 APTT 35.0 Seconds (26.9-38.3) 12/23/18 10:56 Attending/Attestation - Attestation I have personally seen and examined this patient.: Yes I have fully participated in the care of the patient.: Yes I have reviewed all pertinent clinical information, including history, physical exam and plan: Yes Notes (Text): Patient seen and examined by me with resident at 10:15 AM on 01/03/19. Case in cluding HPI, physical exam, and assessment and plan discussed with resident. Agree with above with following additions/corrections. Patient is a 68-year-old female with past medical history significant for chronic kidney disease, type 2 diabetes, hypertension, hyperlipidemia, and anemia that presented to the emergency room for change in mental status, lethargy, and weakness. batch dumper Theodora # [id number] used for translation. Patient states she is feeling ok. S/P placement of right internal jugular HD access. Patient is denying any pain at the site. She is denying shortness of breath. Patient and family agreed to dialysis late last night. Patient denies any shortness of breath. Still with bilateral leg swelling and pain. No chest pain or palpitations. No fevers or chills. No headaches or dizziness. No dysuria or burning with urination. No diarrhea. No nausea, vomiting, or abdominal pain. Physical exam: General: Awake and alert lying in bed in no acute distress HEENT: Normocephalic, atraumatic. Extraocular muscles intact, pupils equal and reactive, no scleral icterus. Oropharynx is pink and moist. No pharyngeal erythema or exudate appreciated. Neck is supple. Cardiovascular: Regular rhythm. Normal S1 and S2. No murmurs, rubs, or gallops appreciated Pulmonary: Normal respiratory effort. Decreased breath sounds. No rhonchi, rales, or wheezing appreciated. Gastrointestinal: Soft, nondistended. Nontender. Positive bowel sounds all 4 quadrants. No guarding. Musculoskeletal: Moves all extremities. No calf tenderness. Bilateral lower extremity pitting edema and tenderness. Central nervous system: AAOx3. Dermatologic: Skin warm and dry. Assessment and plan: Patient is a 68-year-old female with past medical history significant for chronic kidney disease, type 2 diabetes, hypertension, hyperlipidemia, and anemia that presented to the emergency room for change in mental status, lethargy, and weakness. 1. Worsening of CKD, requiring dialysis. Nephrology following, recommendations appreciated. Creatinine uptrending. Family and patient agreed to dialysis. Right internal jugular HD access placed this AM. Patient for dialysis today. Vein mapping completed. Continue Renagel. Continue Torsemide. Chest xray showed no active disease. 2. Dyspnea. Chest xray showed no active disease. Continue nebulizer treatments. Continue Solu-medrol, taper. Continue pulmicort and Brovana. Pulmonary following, recommendations appreciated. Possible undiagnosed asthma per pulmonary. Will need outpatient PFTs, discussed at length with patient and patient's daughter. Patient for HD today. Chest CT per radiologist showed no acute findings; stable pulmonary parenchymal findings including scarring/postoperative changes right lung; chronic interstitial lung disease, mosaic pattern; no suspicious pulmonary nodules, masses, or infiltrates. V/Q scan low probability for pulmonary embolism. 3. UTI. Urine culture positive for ESBL and Beta hemolytic Strep Group B. Resolved. S/P treatment with Merrem. ID following, recommendations appreciated. Patient afebrile and no leukocytosis. Blood cultures with no growth. 4. Toxic metabolic encephalopathy. Likey secondary to UTI. Resolved. Neurology following, recommendations appreciated. Head CT per radiologist showed no acute intracranial pathology identified. Brain MRI per radiologist showed no acute intracranial findings. Continue supportive care. 5. Essential hypertension. Continue Norvasc, Coreg, Clonidine patch, hydralazine, and torsemide. 6. DM2. Continue insulin sliding scale, Continue amaryl. Continue humulin R AC. Continue levemir. Hyperglycemia secondary to steroids. May need to decrease AC insulin as steroids are being tapered off. Continue to monitor accuchecks. 7. Hyperlipidemia. Continue Lipitor. 8. Anemia of chronic disease. FOBT+. S/P 1 unit PRBC on 12/24/18. S/P 1 unit PRBC 12/30/18 with improvment. GI recommendations appreciated, no plans for endoscopic procedure for now. S/P IV iron. H&H stable, continue to monitor. Weekly Aranesp. Motorboat Operator following, recommendations appreciated. 9. GI/DVT prophylaxis. Protonix/heparin 10. Patient is a full code. Case was discussed in detail with the patient regarding current diagnosis and treatment plan. All questions answered.
--- NOTE | 2019-01-03 14:13 | CP.PCM.PN ---
Subjective - Date & Time of Evaluation Date of Evaluation: 01/03/19 Time of Evaluation: 10:50 - Subjective Subjective: Not in distress, afebrile. Objective - Vital Signs/Intake and Output Vital Signs (last 24 hours): Temp Pulse Resp BP Pulse Ox 97.7 F 69 20 112/79 98 01/02/19 08:16 01/02/19 11:46 01/02/19 08:16 01/02/19 11:46 01/02/19 08:16 Intake and Output: 01/02/19 01/02/19 06:59 18:59 Intake Total 180 Balance 180 - Medications Medications: Current Medications Albuterol/Ipratropium (Duoneb 3 Mg/0.5 Mg (3 Ml) Ud) 3 ml IH [id number] [facility] Last Admin: 01/02/19 13:46 Dose: Not Given Albuterol/Ipratropium (Duoneb 3 Mg/0.5 Mg (3 Ml) Ud) 3 ml IH RQ2 PRN PRN Reason: Shortness of Breath Amlodipine Besylate (Norvasc) 10 mg PO DAILY [facility] Last Admin: 01/02/19 10:45 Dose: 10 mg Arformoterol Tartrate (Brovana) 15 mcg IH [id number] [facility] Last Admin: 01/02/19 08:05 Dose: 15 mcg Atorvastatin Calcium (Lipitor) 40 mg PO DAILY [facility] Last Admin: 01/02/19 10:44 Dose: 40 mg Budesonide (Pulmicort Respules) 0.5 mg IH [id number] [facility] Last Admin: 01/02/19 08:12 Dose: 0.5 mg Carvedilol (Coreg) 25 mg PO Q12H [facility] Last Admin: 01/02/19 06:16 Dose: 25 mg Clonidine HCl (Catapres Tts1 0.1 Mg/24 Hr) 1 patch TD QWK [facility] Last Admin: 12/31/18 11:01 Dose: 1 patch Dextrose (Dextrose 50% Inj) 0 ml IV STAT PRN; Protocol PRN Reason: Hypoglycemia Protocol Ergocalciferol (Drisdol 50,000 Intl Units Cap) 1 cap PO Q7D [facility] Last Admin: 12/27/18 12:02 Dose: 1 cap Glimepiride (Amaryl) 1 mg PO DAILY [facility] Last Admin: 01/02/19 10:45 Dose: 1 mg Hydralazine HCl (Apresoline) 10 mg IVP Q6 PRN PRN Reason: Systolic Blood Pressure Last Admin: 12/27/18 06:48 Dose: 10 mg Hydralazine HCl (Apresoline) 100 mg PO Q8H [facility] Last Admin: 01/02/19 11:46 Dose: 100 mg Dextrose (Dextrose 5% In Water 1000 Ml) 1,000 mls @ 0 mls/hr IV .Q0M PRN; Protocol PRN Reason: Hypoglycemia Protocol Insulin Detemir (Levemir) 5 unit SC HS [facility] Last Admin: 01/01/19 21:08 Dose: 5 units Insulin Human Regular (Humulin R Med) 0 units SC ACHS [facility]; Protocol Last Admin: 01/02/19 11:53 Dose: 1 units Insulin Human Regular (Humulin R) 6 units SC AC [facility] Last Admin: 01/02/19 11:53 Dose: 6 units Methylprednisolone (Solu-Medrol) 30 mg IVP Q12 [facility] Last Admin: 01/02/19 10:44 Dose: 30 mg Pantoprazole Sodium (Protonix Ec Tab) 40 mg PO 0600 [facility] Last Admin: 01/02/19 06:17 Dose: 40 mg Sevelamer HCl (Renagel) 800 mg PO WM [facility] Last Admin: 01/02/19 11:45 Dose: 800 mg Torsemide (Demadex) 20 mg PO DAILY [facility] Last Admin: 01/02/19 10:45 Dose: 20 mg - Labs Labs: 01/02/19 07:00 01/02/19 07:00 PT 13.4 SECONDS (9.4-12.5) H 12/23/18 10:56 INR 1.19 12/23/18 10:56 APTT 35.0 Seconds (26.9-38.3) 12/23/18 10:56 - Constitutional Appears: Chronically Ill - Head Exam Head Exam: NORMAL INSPECTION - Respiratory Exam Respiratory Exam: Decreased Breath Sounds - Cardiovascular Exam Cardiovascular Exam: +S1, +S2 - GI/Abdominal Exam GI & Abdominal Exam: Soft. absent: Tenderness Assessment and Plan - Assessment and Plan (Free Text) Plan: Asssessment systemic inflammatory response syndrome, consider sepsis due to UTI with Group B Strep and ESBL E. coli history of right pyelonephritis with ESBL E. coli acute renal failure history of herpes zoster on the left chest and shoulder areas history of sepsis secondary to left otomastoiditis history of Methicillin-resistant coagulase negative staph and Enterococci bacteremia HTN DM obesity with BMI 30 chronic renal failure Plan completed course of Merrem but WBC count still elevated - will repeat blood and urien cx and will monitor off antibiotics follow up plans of Renal
--- NOTE | 2019-01-03 19:54 | CP.PCM.PN ---
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, with nephrotic syndrome, admitted with E coli ESBL UTI; Patient seen on first HD today; tolerating well, without any headache or mental status changes; no respiratory distress; Objective - Vital Signs/Intake and Output Vital Signs (last 24 hours): Temp Pulse Resp BP Pulse Ox 97.1 F L 82 20 158/72 H 96 01/03/19 18:00 01/03/19 18:10 01/03/19 18:00 01/03/19 18:10 01/03/19 18:00 Intake and Output: 01/03/19 01/04/19 18:59 06:59 Intake Total 780 Output Total 400 Balance 380 - Medications Medications: Current Medications Albuterol/Ipratropium (Duoneb 3 Mg/0.5 Mg (3 Ml) Ud) 3 ml IH [id number] [facility] Last Admin: 01/03/19 19:17 Dose: 3 ml Albuterol/Ipratropium (Duoneb 3 Mg/0.5 Mg (3 Ml) Ud) 3 ml IH RQ2 PRN PRN Reason: Shortness of Breath Amlodipine Besylate (Norvasc) 10 mg PO DAILY [facility] Last Admin: 01/03/19 10:26 Dose: 10 mg Arformoterol Tartrate (Brovana) 15 mcg I[facility] [id number] [facility] Last Admin: 01/03/19 19:17 Dose: 15 mcg Atorvastatin Calcium (Lipitor) 40 mg PO DAILY [facility] Last Admin: 01/03/19 10:27 Dose: 40 mg Budesonide (Pulmicort Respules) 0.5 mg IH [id number] [facility] Last Admin: 01/03/19 19:17 Dose: 0.5 mg Carvedilol (Coreg) 25 mg PO Q12H [facility] Last Admin: 01/03/19 18:10 Dose: 25 mg Clonidine HCl (Catapres Tts1 0.1 Mg/24 Hr) 1 patch TD QWK [facility] Last Admin: 12/31/18 11:01 Dose: 1 patch Dextrose (Dextrose 50% Inj) 0 ml IV STAT PRN; Protocol PRN Reason: Hypoglycemia Protocol Ergocalciferol (Drisdol 50,000 Intl Units Cap) 1 cap PO Q7D [facility] Last Admin: 01/03/19 10:31 Dose: 1 cap Glimepiride (Amaryl) 1 mg PO DAILY [facility] Last Admin: 01/03/19 10:27 Dose: 1 mg Hydralazine HCl (Apresoline) 10 mg IVP Q6 PRN PRN Reason: Systolic Blood Pressure Last Admin: 12/27/18 06:48 Dose: 10 mg Hydralazine HCl (Apresoline) 100 mg PO Q8H [facility] Last Admin: 01/03/19 12:39 Dose: Not Given Dextrose (Dextrose 5% In Water 1000 Ml) 1,000 mls @ 0 mls/hr IV .Q0M PRN; Protocol PRN Reason: Hypoglycemia Protocol Insulin Detemir (Levemir) 5 unit SC HS [facility] Last Admin: 01/02/19 21:45 Dose: 5 units Insulin Human Regular (Humulin R Med) 0 units SC ACHS [facility]; Protocol Last Admin: 01/03/19 16:54 Dose: 7 units Insulin Human Regular (Humulin R) 6 units SC AC [facility] Last Admin: 01/03/19 16:54 Dose: 6 units Methylprednisolone (Solu-Medrol) 20 mg IVP Q12 [facility] Last Admin: 01/03/19 10:27 Dose: 20 mg Pantoprazole Sodium (Protonix Ec Tab) 40 mg PO 0600 [facility] Last Admin: 01/03/19 05:48 Dose: 40 mg Patiromer (Veltassa) 8.4 gm PO DAILY [facility] Sevelamer HCl (Renagel) 800 mg PO WM [facility] Last Admin: 01/03/19 16:54 Dose: 800 mg Torsemide (Demadex) 20 mg PO DAILY [facility] Last Admin: 01/03/19 10:27 Dose: 20 mg - Labs Labs: 01/03/19 05:40 01/03/19 10:30 PT 13.4 SECONDS (9.4-12.5) H 12/23/18 10:56 INR 1.19 12/23/18 10:56 APTT 35.0 Seconds (26.9-38.3) 12/23/18 10:56 - Constitutional Appears: Non-toxic, No Acute Distress - Eye Exam Eye Exam: Normal appearance. absent: Scleral icterus - Respiratory Exam Additional comments: rales present, more on L; - Cardiovascular Exam Cardiovascular Exam: RRR, +S1, +S2. absent: Gallop, Rubs - GI/Abdominal Exam GI & Abdominal Exam: Soft. absent: Distended, Tenderness - Extremities Exam Additional comments: markedly edematous lower legs b/l; - Neurological Exam Neurological Exam: Alert, Awake - Psychiatric Exam Psychiatric exam: Normal Mood. absent: Agitated - Skin Skin Exam: Warm. absent: Cyanosis Assessment and Plan (1) ESRD on hemodialysis Assessment & Plan: Initiated today on HD for the first time in the setting of worsening renal function with volume overload and eletrolyte imbalances including hyperkalemia/ metabolic acidosis; temp IJ HD catheter inserted by surgery, placement confirmed by CXR; low efficiency HD today to prevent dialysis dysequilibrium that can occur with first time HD; tolerating HD well; -next HD for Saturday (will evaluate for HD need tomorrow as well); -continue veltassa 8.4 g daily for hyperkalemia until patient on regular HD schedule; -avoid nephrotoxic agents (in order to preserve residual renal function); -will have IR convert temp HD catheter for tunneled one; f/u with vascular surgery regarding AVF creation before d/c (if patient agreeable); -discuss outpatient HD placement with social media manager on Saturday; Status: Acute (2) Hypertensive CKD, ESRD on dialysis Assessment & Plan: BP controlled, continue current meds including diuretic; Status: Acute (3) Hyperkalemia Assessment & Plan: see above; Status: Acute (4) Nephrotic syndrome Assessment & Plan: Secondary to diabetic kidney disease with 6g on 24 hr collection; may benefit from ANASTASIYA blockade, will start once patient on regular HD schedule; Status: Acute (5) Anemia Assessment & Plan: Hgb at goal s/p aranesp; monitor; Status: Acute (6) Chronic kidney disease-mineral and bone disorder Assessment & Plan: Phos elevated, will improve with HD; continue sevelamer 1 tab w/ meals; Status: Chronic
[2019-01-03] MEDS: Insulin Detemir 100 units/ml Vial (Levemir) SC SCH (22:20)
[2019-01-04] MEDS: Albuterol-Ipratrop 3 mg / 0.5 (3 ml) UD IH SCH ×4 (03:00→19:18)
[2019-01-04] MEDS: Pantoprazole 40 mg EC Tab PO SCH (06:42)
[2019-01-04 06:45] LABS: URINE BILIRUBIN NEGATIVE (NEGATIVE); URINE BLOOD TRACE-LYSED (NEGATIVE); URINE GLUCOSE (UA) 500 mg/dL (NEGATIVE); URINE LEUKOCYTE ESTERASE TRACE Leu/uL (NEGATIVE); URINE PROTEIN >=300 mg/dL (<30 mg/dL); URINE UROBILINOGEN 0.2 E.U./dL (<1 E.U./dL)
[2019-01-04 06:54] LABS: URINE APPEARANCE CLEAR (CLEAR); URINE COLOR LIGHT YELLOW (YELLOW)
[2019-01-04 07:25] LABS: URINE BACTERIA FEW /hpf; URINE RBC 0 - 2 /hpf (0-2)
[2019-01-04 07:38] LABS: HEMOGLOBIN 10.8 g/dL (12.0-16.0); MEAN CELL VOLUME 93.9 fl (80.0-105.0); MEAN CORPUSCULAR HEMOGLOBIN 31.3 pg (25.0-35.0); MEAN CORPUSCULAR HGB CONC 33.3 g/dl (31.0-37.0); MEAN PLATELET VOLUME 10.1 fl (7.0-11.0); RBC 3.45 10^6/uL (3.5-6.1); RED CELL DISTRIBUTION WIDTH 16.2 % (11.5-14.5)
[2019-01-04] MEDS: Arformoterol 15 mcg/2 ml Inh Sol IH SCH ×2 (07:44→19:18)
[2019-01-04] MEDS: Budesonide 0.5 mg/2 ml Inhal Susp UD IH SCH ×2 (07:45→19:19)
[2019-01-04 07:48] LABS: ALB/GLOB RATIO 0.9 (1.1-1.8); ALBUMIN 2.7 g/dL (3.0-4.8)
[2019-01-04] MEDS: Insulin Reg-MEDIUM-Coverage SC SCH ×4 (08:07→21:54)
[2019-01-04] MEDS: Insulin Regular 1 UNITS/0.01 ML ML SC SCH ×3 (08:08→17:00)
--- NOTE | 2019-01-04 09:36 | CP.PCM.PN ---
Subjective - Date & Time of Evaluation Date of Evaluation: 01/04/19 Time of Evaluation: 09:05 - Subjective Subjective: Has occasional cough, no fevers, not in distress. Objective - Vital Signs/Intake and Output Vital Signs (last 24 hours): Temp Pulse Resp BP Pulse Ox 97.9 F 71 20 157/61 H 95 01/03/19 06:00 01/03/19 06:00 01/03/19 06:00 01/03/19 10:26 01/03/19 06:00 Intake and Output: 01/03/19 01/03/19 06:59 18:59 Intake Total 840 0 Balance 840 0 - Medications Medications: Current Medications Albuterol/Ipratropium (Duoneb 3 Mg/0.5 Mg (3 Ml) Ud) 3 ml IH [id number] [facility] Last Admin: 01/03/19 13:55 Dose: Not Given Albuterol/Ipratropium (Duoneb 3 Mg/0.5 Mg (3 Ml) Ud) 3 ml IH RQ2 PRN PRN Reason: Shortness of Breath Amlodipine Besylate (Norvasc) 10 mg PO DAILY [facility] Last Admin: 01/03/19 10:26 Dose: 10 mg Arformoterol Tartrate (Brovana) 15 mcg IH [id number] [facility] Last Admin: 01/03/19 08:13 Dose: 15 mcg Atorvastatin Calcium (Lipitor) 40 mg PO DAILY [facility] Last Admin: 01/03/19 10:27 Dose: 40 mg Budesonide (Pulmicort Respules) 0.5 mg IH [id number] [facility] Last Admin: 01/03/19 08:14 Dose: 0.5 mg Carvedilol (Coreg) 25 mg PO Q12H [facility] Last Admin: 01/03/19 05:26 Dose: 25 mg Clonidine HCl (Catapres Tts1 0.1 Mg/24 Hr) 1 patch TD QWK [facility] Last Admin: 12/31/18 11:01 Dose: 1 patch Dextrose (Dextrose 50% Inj) 0 ml IV STAT PRN; Protocol PRN Reason: Hypoglycemia Protocol Ergocalciferol (Drisdol 50,000 Intl Units Cap) 1 cap PO Q7D [facility] Last Admin: 01/03/19 10:31 Dose: 1 cap Glimepiride (Amaryl) 1 mg PO DAILY [facility] Last Admin: 01/03/19 10:27 Dose: 1 mg Hydralazine HCl (Apresoline) 10 mg IVP Q6 PRN PRN Reason: Systolic Blood Pressure Last Admin: 12/27/18 06:48 Dose: 10 mg Hydralazine HCl (Apresoline) 100 mg PO Q8H [facility] Last Admin: 01/03/19 12:39 Dose: Not Given Dextrose (Dextrose 5% In Water 1000 Ml) 1,000 mls @ 0 mls/hr IV .Q0M PRN; Protocol PRN Reason: Hypoglycemia Protocol Insulin Detemir (Levemir) 5 unit SC HS [facility] Last Admin: 01/02/19 21:45 Dose: 5 units Insulin Human Regular (Humulin R Med) 0 units SC ACHS [facility]; Protocol Last Admin: 01/03/19 12:39 Dose: Not Given Insulin Human Regular (Humulin R) 6 units SC AC [facility] Last Admin: 01/03/19 12:39 Dose: Not Given Methylprednisolone (Solu-Medrol) 20 mg IVP Q12 [facility] Last Admin: 01/03/19 10:27 Dose: 20 mg Pantoprazole Sodium (Protonix Ec Tab) 40 mg PO 0600 [facility] Last Admin: 01/03/19 05:48 Dose: 40 mg Sevelamer HCl (Renagel) 800 mg PO WM [facility] Last Admin: 01/03/19 12:40 Dose: Not Given Torsemide (Demadex) 20 mg PO DAILY [facility] Last Admin: 01/03/19 10:27 Dose: 20 mg - Labs Labs: 01/03/19 05:40 01/03/19 10:30 PT 13.4 SECONDS (9.4-12.5) H 12/23/18 10:56 INR 1.19 12/23/18 10:56 APTT 35.0 Seconds (26.9-38.3) 12/23/18 10:56 - Constitutional Appears: No Acute Distress, Chronically Ill - Head Exam Head Exam: NORMAL INSPECTION - Respiratory Exam Respiratory Exam: Decreased Breath Sounds - Cardiovascular Exam Cardiovascular Exam: +S1, +S2 - GI/Abdominal Exam GI & Abdominal Exam: Soft. absent: Tenderness Assessment and Plan - Assessment and Plan (Free Text) Plan: Asssessment S/P systemic inflammatory response syndrome, consider sepsis due to UTI with Group B Strep and ESBL E. coli - persistent leukocytosis R/O other source of infection history of right pyelonephritis with ESBL E. coli acute renal failure history of herpes zoster on the left chest and shoulder areas history of sepsis secondary to left otomastoiditis history of Methicillin-resistant coagulase negative staph and Enterococci bacteremia HTN DM obesity with BMI 30 chronic renal failure Plan completed course of Merrem but WBC count still elevated - follow up repeat blood and urine cx and will continue to monitor off antibiotics CXR shows atelectasis follow up further plans of Renal
[2019-01-04] MEDS: MethylPREDNISolone 40 mg Vial IVP SCH ×2 (10:30→22:30)
--- NOTE | 2019-01-04 12:11 | CP.PCM.PN ---
<Marcelo Cole - Last Filed: 01/04/19 12:07> Subjective - Date & Time of Evaluation Date of Evaluation: 01/04/19 Time of Evaluation: 08:00 - Subjective Subjective: Marcelo Cole PGY1 Medicine Progress Note for Dr. Castanon Patient was seen and examined at bedside this morning. Vital signs stable. [employer] spanish language lecturer was used (ID#[id number]). Patient had successful HD yesterday for 2 hours treatment via R-IJ trialysis catheter. Patient explained that next HD session is planned for Saturday. She denies cp, sob, n/v/d, abdominal pain. No adverse overnight events. A full 12 point ROS was conducted and unremarkable except as stated above. Objective - Vital Signs/Intake and Output Vital Signs (last 24 hours): Temp Pulse Resp BP Pulse Ox 97.7 F 78 20 158/78 H 96 01/04/19 06:00 01/04/19 11:53 01/04/19 06:00 01/04/19 11:53 01/04/19 06:00 - Medications Medications: Current Medications Albuterol/Ipratropium (Duoneb 3 Mg/0.5 Mg (3 Ml) Ud) 3 ml IH [id number] [facility] Last Admin: 01/04/19 07:44 Dose: 3 ml Albuterol/Ipratropium (Duoneb 3 Mg/0.5 Mg (3 Ml) Ud) 3 ml IH RQ2 PRN PRN Reason: Shortness of Breath Amlodipine Besylate (Norvasc) 10 mg PO DAILY [facility] Last Admin: 01/04/19 10:29 Dose: 10 mg Arformoterol Tartrate (Brovana) 15 mcg IH [id number] [facility] Last Admin: 01/04/19 07:44 Dose: 15 mcg Atorvastatin Calcium (Lipitor) 40 mg PO DAILY [facility] Last Admin: 01/04/19 10:29 Dose: 40 mg Budesonide (Pulmicort Respules) 0.5 mg IH [id number] [facility] Last Admin: 01/04/19 07:45 Dose: 0.5 mg Carvedilol (Coreg) 25 mg PO Q12H [facility] Last Admin: 01/04/19 06:50 Dose: 25 mg Clonidine HCl (Catapres Tts1 0.1 Mg/24 Hr) 1 patch TD QWK [facility] Last Admin: 12/31/18 11:01 Dose: 1 patch Dextrose (Dextrose 50% Inj) 0 ml IV STAT PRN; Protocol PRN Reason: Hypoglycemia Protocol Ergocalciferol (Drisdol 50,000 Intl Units Cap) 1 cap PO Q7D [facility] Last Admin: 01/03/19 10:31 Dose: 1 cap Glimepiride (Amaryl) 1 mg PO DAILY [facility] Last Admin: 01/04/19 10:29 Dose: 1 mg Hydralazine HCl (Apresoline) 10 mg IVP Q6 PRN PRN Reason: Systolic Blood Pressure Last Admin: 12/27/18 06:48 Dose: 10 mg Hydralazine HCl (Apresoline) 100 mg PO Q8H [facility] Last Admin: 01/04/19 11:53 Dose: 100 mg Dextrose (Dextrose 5% In Water 1000 Ml) 1,000 mls @ 0 mls/hr IV .Q0M PRN; Protocol PRN Reason: Hypoglycemia Protocol Insulin Detemir (Levemir) 5 unit SC HS [facility] Last Admin: 01/03/19 22:20 Dose: 5 units Insulin Human Regular (Humulin R Med) 0 units SC ACHS [facility]; Protocol Last Admin: 01/04/19 11:50 Dose: 5 units Insulin Human Regular (Humulin R) 6 units SC AC [facility] Last Admin: 01/04/19 11:50 Dose: 6 units Methylprednisolone (Solu-Medrol) 20 mg IVP Q12 [facility] Last Admin: 01/04/19 10:30 Dose: 20 mg Pantoprazole Sodium (Protonix Ec Tab) 40 mg PO 0600 [facility] Last Admin: 01/04/19 06:42 Dose: 40 mg Patiromer (Veltassa) 8.4 gm PO DAILY [facility] Last Admin: 01/03/19 22:20 Dose: 8.4 gm Sevelamer HCl (Renagel) 800 mg PO WM [facility] Last Admin: 01/04/19 11:52 Dose: 800 mg Torsemide (Demadex) 20 mg PO DAILY [facility] Last Admin: 01/04/19 10:29 Dose: 20 mg - Labs Labs: 01/04/19 06:50 01/04/19 06:50 PT 13.4 SECONDS (9.4-12.5) H 12/23/18 10:56 INR 1.19 12/23/18 10:56 APTT 35.0 Seconds (26.9-38.3) 12/23/18 10:56 - Constitutional Appears: No Acute Distress - Head Exam Head Exam: ATRAUMATIC, NORMAL INSPECTION, NORMOCEPHALIC - Eye Exam Eye Exam: EOMI, Normal appearance - ENT Exam ENT Exam: Mucous Membranes Moist - Neck Exam Additional comments: R-IJ trialysis catheter is in place. - Respiratory Exam Respiratory Exam: Wheezing (improving since admission). Clear to Ausculation Bilateral, NORMAL BREATHING PATTERN. absent: Rales, Rhonchi, Respiratory Distress - Cardiovascular Exam Cardiovascular Exam: RRR, +S1, +S2 - GI/Abdominal Exam GI & Abdominal Exam: Soft, Normal Bowel Sounds. absent: Tenderness - Extremities Exam Extremities Exam: Full ROM, Normal Capillary Refill, Tenderness (mild tenderness to palpation of lower ext. ). absent: Pedal Edema Additional comments: +2 pitting edema bilateral lower ext. - Neurological Exam Neurological Exam: Alert, Awake, Oriented x3 - Psychiatric Exam Psychiatric exam: Normal Affect, Normal Mood - Skin Skin Exam: Dry, Intact, Normal Color, Warm Assessment and Plan - Assessment and Plan (Free Text) Assessment: Patient is a 68 y/o hebrew speaking F with PMHx of CKD, DM2, HTN, HLD, anemia who presented to ED for change in mental status, lethargy and weakness. Admitted for toxic metabolic encephalopathy 2/2 ESBL UTI which has now resolved. Also found to have Uncontrolled HTN, Shortness of Breath 2/2 Undiagnosed Asthma, and Worsening CKD requiring hemodialysis. Plan: Hyperkalemia and Worsening CKD - Last HD session was on 01/03; next HD session is for Saturday, 01/05 - s/p trialysis catheter at the R-IJ (01/03) - BUN/Cr downtrending, BUN/Cr 73/3.1 (Cr 3.0 on admission) - K was 6.0 (01/03), repeat K is 4.3, downtrending - continue home renvela and ergocalciferol - Nephro following (Dr. Santiago). Recs appreciated. Shortness of Breath 2/2 Undiagnosed Asthma - improving - HD sessions may also improve patient's shortness of breath; wheezing is improving - c/w methylprednisolone 20 IV q12 - c/w pulmicort, brovana, duonebs, torsemide - Pulm on consult (Dr. Morton). Recs were appreciated. Patient needs outpatient PFT evaluation. Toxic Metabolic Encephalopathy 2/2 ESBL UTI - resolved - Repeat blood cx are negative x2 (prelim) - completed IV antibiotic course with merrem for 10 days. - ID is on consult (Dr. Quiros). Recs appreciated. - s/p IR guided right arm PICC line in place (12/29) HTN - Improved during hospital course. HTN likely 2/2 CKD. - c/w amlodipine 10mg PO daily, carvedilol 25mg PO q12, hydralazine 100mg PO q8, and clonidine - Medications adjusted as per nephrology (Dr. Santiago) - Hx of HTN Anemia of CKD - Hgb stable - c/w IV iron - Hgb was 7.8 on admission, s/p x2 pRBC total - Heme (Dr. Vernon) is on board. - GI was on consult (Dr. Narayan) and recommended outpatient endoscopic workup DM2 - Continue glimepiride - ISS (med) - Accuchecks HLD - continue atorvastatin DVT/GI PPx: lovenox/protonix Diet: Renal Diet Dispo: Continue to monitor patient on the floor. Hyperkalemia and renal function improving. Plan for next HD session on Saturday. Case was discussed and reviewed with Attending Physician, Dr. Castanon. <Brisa Castanon R - Last Filed: 01/04/19 17:11> Objective - Vital Signs/Intake and Output Vital Signs (last 24 hours): Temp Pulse Resp BP Pulse Ox 97.7 F 69 20 155/63 H 96 01/04/19 06:00 01/04/19 17:01 01/04/19 06:00 01/04/19 17:01 01/04/19 06:00 - Medications Medications: Current Medications Albuterol/Ipratropium (Duoneb 3 Mg/0.5 Mg (3 Ml) Ud) 3 ml IH [id number] [facility] Last Admin: 01/04/19 14:27 Dose: 3 ml Albuterol/Ipratropium (Duoneb 3 Mg/0.5 Mg (3 Ml) Ud) 3 ml IH RQ2 PRN PRN Reason: Shortness of Breath Amlodipine Besylate (Norvasc) 10 mg PO DAILY [facility] Last Admin: 01/04/19 10:29 Dose: 10 mg Arformoterol Tartrate (Brovana) 15 mcg IH [id number] [facility] Last Admin: 01/04/19 07:44 Dose: 15 mcg Atorvastatin Calcium (Lipitor) 40 mg PO DAILY [facility] Last Admin: 01/04/19 10:29 Dose: 40 mg Budesonide (Pulmicort Respules) 0.5 mg IH [id number] [facility] Last Admin: 01/04/19 07:45 Dose: 0.5 mg Carvedilol (Coreg) 25 mg PO Q12H [facility] Last Admin: 01/04/19 17:01 Dose: 25 mg Clonidine HCl (Catapres Tts1 0.1 Mg/24 Hr) 1 patch TD QWK [facility] Last Admin: 12/31/18 11:01 Dose: 1 patch Dextrose (Dextrose 50% Inj) 0 ml IV STAT PRN; Protocol PRN Reason: Hypoglycemia Protocol Ergocalciferol (Drisdol 50,000 Intl Units Cap) 1 cap PO Q7D [facility] Last Admin: 01/03/19 10:31 Dose: 1 cap Glimepiride (Amaryl) 1 mg PO DAILY [facility] Last Admin: 01/04/19 10:29 Dose: 1 mg Heparin Sodium (Porcine) (Heparin) 5,000 units SC Q8 [facility]; Protocol Hydralazine HCl (Apresoline) 10 mg IVP Q6 PRN PRN Reason: Systolic Blood Pressure Last Admin: 12/27/18 06:48 Dose: 10 mg Hydralazine HCl (Apresoline) 100 mg PO Q8H [facility] Last Admin: 01/04/19 11:53 Dose: 100 mg Dextrose (Dextrose 5% In Water 1000 Ml) 1,000 mls @ 0 mls/hr IV .Q0M PRN; Protocol PRN Reason: Hypoglycemia Protocol Insulin Detemir (Levemir) 5 unit SC HS [facility] Last Admin: 01/03/19 22:20 Dose: 5 units Insulin Human Regular (Humulin R Med) 0 units SC ACHS [facility]; Protocol Last Admin: 01/04/19 16:59 Dose: 1 units Insulin Human Regular (Humulin R) 6 units SC AC [facility] Last Admin: 01/04/19 17:00 Dose: 6 units Methylprednisolone (Solu-Medrol) 20 mg IVP Q12 [facility] Last Admin: 01/04/19 10:30 Dose: 20 mg Pantoprazole Sodium (Protonix Ec Tab) 40 mg PO 0600 [facility] Last Admin: 01/04/19 06:42 Dose: 40 mg Patiromer (Veltassa) 8.4 gm PO DAILY [facility] Last Admin: 01/03/19 22:20 Dose: 8.4 gm Sevelamer HCl (Renagel) 800 mg PO WM [facility] Last Admin: 01/04/19 17:01 Dose: 800 mg Torsemide (Demadex) 20 mg PO DAILY [facility] Last Admin: 01/04/19 10:29 Dose: 20 mg - Labs Labs: 01/04/19 06:50 01/04/19 06:50 PT 13.4 SECONDS (9.4-12.5) H 12/23/18 10:56 INR 1.19 12/23/18 10:56 APTT 35.0 Seconds (26.9-38.3) 12/23/18 10:56 Attending/Attestation - Attestation I have personally seen and examined this patient.: Yes I have fully participated in the care of the patient.: Yes I have reviewed all pertinent clinical information, including history, physical exam and plan: Yes Notes (Text): Patient seen and examined by me with resident at 9 AM on 01/04/19. Case including HPI, physical exam, and assessment and plan discussed with resident. Agree with above with following additions/corrections. 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 rn imaging #[id number] used for translation. Patient states she feels ok. States she tolerated dialysis well yesterday. Patient denies any pain at right internal jugular HD access site. She denies shortness of breath. States lower extremity swelling and pain has improved a little today.. No chest pain or palpitations. No fevers or chills. No headaches or dizziness. No dysuria or burning with urination. No diarrhea, last bowel movement was yesterday. No nausea, vomiting, or abdominal pain. Physical exam: General: Awake and alert lying in bed in no acute distress HEENT: Normocephalic, atraumatic. Extraocular muscles intact, pupils equal and reactive, no scleral icterus. Oropharynx is pink and moist. No pharyngeal eryt elbert or exudate appreciated. Neck is supple. Cardiovascular: Regular rhythm. Normal S1 and S2. No murmurs, rubs, or gallops appreciated Pulmonary: Normal respiratory effort. Decreased breath sounds. No rhonchi, rales, or wheezing appreciated. Gastrointestinal: Soft, nondistended. Nontender. Positive bowel sounds all 4 quadrants. No guarding. Musculoskeletal: Moves all extremities. No calf tenderness. Bilateral lower extremity pitting edema and tenderness. Central nervous system: AAOx3. Dermatologic: Skin warm and dry. Assessment and plan: Patient is a 68-year-old female with past medical history significant for chronic kidney disease, type 2 diabetes, hypertension, hyperlipidemia, and anemia that presented to the emergency room for change in mental status, lethargy, and weakness. 1. Worsening of CKD, now with ESRD requiring dialysis. Nephrology following, recommendations appreciated. S/P dialysis yesterday. Patient for dialysis tomorrow. S/P right internal jugular HD access. Vein mapping completed. Continue Renagel. Continue Torsemide. Chest xray showed no active disease. 2. Hyperkalemia. Resolved with dialysis. 2. Dyspnea. Chest xray showed no active disease. Continue nebulizer treatments. Continue Solu-medrol taper. Continue pulmicort and Brovana. Pulmonary following, recommendations appreciated. Possible undiagnosed asthma per pulmonary. Will need outpatient PFTs, discussed at length with patient and patient's daughter. Continue HD. Chest CT per radiologist showed no acute findings; stable pulmonary parenchymal findings including scarring/postoperative changes right lung; chronic interstitial lung disease, mosaic pattern; no suspicious pulmonary nodules, masses, or infiltrates. V/Q scan low probability for pulmonary embolism. 3. UTI. Urine culture positive for ESBL and Beta hemolytic Strep Group B. Resolved. S/P treatment with Merrem. ID following, recommendations appreciated. Patient afebrile and no leukocytosis. Blood cultures with no growth. 4. Toxic metabolic encephalopathy. Likey secondary to UTI. Resolved. Neurology following, recommendations appreciated. Head CT per radiologist showed no acute intracranial pathology identified. Brain MRI per radiologist showed no acute intracranial findings. Continue supportive care. 5. Essential hypertension. Continue Norvasc, Coreg, Clonidine patch, hydralazine, and torsemide. 6. DM2. Continue insulin sliding scale, Continue amaryl. Continue humulin R AC. Continue levemir. Hyperglycemia secondary to steroids. May need to decrease AC insulin as steroids are being tapered off. Continue to monitor accuchecks. 7. Hyperlipidemia. Continue Lipitor. 8. Anemia of chronic disease. FOBT+. S/P 1 unit PRBC on 12/24/18. S/P 1 unit PRBC 12/30/18 with improvement. GI recommendations appreciated, no plans for en doscopic procedure for now. S/P IV iron. H&H stable, continue to monitor. Weekly Aranesp. Superintendent [employer] following, recommendations appreciated. 9. GI/DVT prophylaxis. Protonix/heparin 10. Patient is a full code. Case was discussed in detail with the patient regarding current diagnosis and treatment plan. All questions answered.
[2019-01-04] MEDS: Insulin Detemir 100 units/ml Vial (Levemir) SC SCH (21:50)
--- NOTE | 2019-01-04 23:13 | CP.PCM.PN ---
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, with nephrotic syndrome, admitted with E coli ESBL UTI, now ESRD on HD; Patient s/p 1st HD session yesterday; reports feeling well; no sob; tolerating diet; no nausea/vomiting; Objective - Vital Signs/Intake and Output Vital Signs (last 24 hours): Temp Pulse Resp BP Pulse Ox 97.2 F L 78 19 159/63 H 98 01/04/19 17:44 01/04/19 20:40 01/04/19 17:44 01/04/19 20:40 01/04/19 17:44 Intake and Output: 01/04/19 01/05/19 18:59 06:59 Intake Total 350 Output Total 450 Balance -100 - Medications Medications: Current Medications Albuterol/Ipratropium (Duoneb 3 Mg/0.5 Mg (3 Ml) Ud) 3 ml IH [id number] [facility] Last Admin: 01/04/19 19:18 Dose: 3 ml Albuterol/Ipratropium (Duoneb 3 Mg/0.5 Mg (3 Ml) Ud) 3 ml IH RQ2 PRN PRN Reason: Shortness of Breath Amlodipine Besylate (Norvasc) 10 mg PO DAILY [facility] Last Admin: 01/04/19 10:29 Dose: 10 mg Arformoterol Tartrate (Brovana) 15 mcg IH [id number] [facility] Last Admin: 01/04/19 19:18 Dose: 15 mcg Atorvastatin Calcium (Lipitor) 40 mg PO DAILY [facility] Last Admin: 01/04/19 10:29 Dose: 40 mg Budesonide (Pulmicort Respules) 0.5 mg IH [id number] [facility] Last Admin: 01/04/19 19:19 Dose: 0.5 mg Carvedilol (Coreg) 25 mg PO Q12H [facility] Last Admin: 01/04/19 17:01 Dose: 25 mg Clonidine HCl (Catapres Tts1 0.1 Mg/24 Hr) 1 patch TD QWK [facility] Last Admin: 12/31/18 11:01 Dose: 1 patch Dextrose (Dextrose 50% Inj) 0 ml IV STAT PRN; Protocol PRN Reason: Hypoglycemia Protocol Ergocalciferol (Drisdol 50,000 Intl Units Cap) 1 cap PO Q7D [facility] Last Admin: 01/03/19 10:31 Dose: 1 cap Glimepiride (Amaryl) 1 mg PO DAILY [facility] Last Admin: 01/04/19 10:29 Dose: 1 mg Heparin Sodium (Porcine) (Heparin) 5,000 units SC Q8 [facility]; Protocol Hydralazine HCl (Apresoline) 10 mg IVP Q6 PRN PRN Reason: Systolic Blood Pressure Last Admin: 12/27/18 06:48 Dose: 10 mg Hydralazine HCl (Apresoline) 100 mg PO Q8H [facility] Last Admin: 01/04/19 20:40 Dose: 100 mg Dextrose (Dextrose 5% In Water 1000 Ml) 1,000 mls @ 0 mls/hr IV .Q0M PRN; Protocol PRN Reason: Hypoglycemia Protocol Insulin Detemir (Levemir) 5 unit SC HS [facility] Last Admin: 01/04/19 21:50 Dose: 5 units Insulin Human Regular (Humulin R Med) 0 units SC ACHS [facility]; Protocol Last Admin: 01/04/19 21:54 Dose: Not Given Insulin Human Regular (Humulin R) 6 units SC AC [facility] Last Admin: 01/04/19 17:00 Dose: 6 units Methylprednisolone (Solu-Medrol) 20 mg IVP Q12 [facility] Last Admin: 01/04/19 10:30 Dose: 20 mg Pantoprazole Sodium (Protonix Ec Tab) 40 mg PO 0600 [facility] Last Admin: 01/04/19 06:42 Dose: 40 mg Patiromer (Veltassa) 8.4 gm PO DAILY [facility] Last Admin: 01/03/19 22:20 Dose: 8.4 gm Sevelamer HCl (Renagel) 800 mg PO WM [facility] Last Admin: 01/04/19 17:01 Dose: 800 mg Torsemide (Demadex) 20 mg PO DAILY [facility] Last Admin: 01/04/19 10:29 Dose: 20 mg - Labs Labs: 01/04/19 06:50 01/04/19 06:50 PT 13.4 SECONDS (9.4-12.5) H 12/23/18 10:56 INR 1.19 12/23/18 10:56 APTT 35.0 Seconds (26.9-38.3) 12/23/18 10:56 - Constitutional Appears: Non-toxic, No Acute Distress - Eye Exam Eye Exam: Normal appearance. absent: Scleral icterus - Respiratory Exam Respiratory Exam: Rales. absent: Respiratory Distress - Cardiovascular Exam Cardiovascular Exam: RRR, +S1, +S2. absent: Gallop, Rubs - GI/Abdominal Exam GI & Abdominal Exam: Soft. absent: Distended, Tenderness - Extremities Exam Additional comments: moderately edematous b/l lower legs; - Neurological Exam Neurological Exam: Alert, Awake - Psychiatric Exam Psychiatric exam: absent: Agitated - Skin Skin Exam: Cyanosis, Warm Assessment and Plan (1) ESRD on hemodialysis Assessment & Plan: Stable electrolyte status today after 1st HD yesterday; signs of volume excess on exam but good O2 sat on room air; no urgent indication for HD today; -Next HD for Saturday; -Holding veltassa (hyperkalemia controlled); -IR for conversion of temp to tunneled HD cath; -f/u with vasc surgery regarding AVF creation; -avoid nephrotoxic agents (to preserve residual renal function); Status: Acute (2) Hypertensive CKD, ESRD on dialysis Assessment & Plan: BP elevated; will aim for higher ultrafiltration goal on next HD session; continue current meds; will add losartan from tomorrow; Status: Acute (3) Hyperkalemia Status: Acute (4) Nephrotic syndrome Status: Chronic (5) Anemia Assessment & Plan: Hgb at goal s/p 2 doses of aranesp, will re-dose as needed; Status: Acute (6) Chronic kidney disease-mineral and bone disorder Assessment & Plan: Continue sevelamer 2 tabs w/ meals; Status: Chronic
[2019-01-05] MEDS: Albuterol-Ipratrop 3 mg / 0.5 (3 ml) UD IH SCH ×4 (01:05→20:11)
[2019-01-05] MEDS: Pantoprazole 40 mg EC Tab PO SCH (05:52)
[2019-01-05 06:45] LABS: HEMOGLOBIN 10.8 g/dL (12.0-16.0); MEAN CELL VOLUME 94.3 fl (80.0-105.0); MEAN CORPUSCULAR HEMOGLOBIN 30.7 pg (25.0-35.0); MEAN CORPUSCULAR HGB CONC 32.5 g/dl (31.0-37.0); MEAN PLATELET VOLUME 10.1 fl (7.0-11.0); RBC 3.52 10^6/uL (3.5-6.1); RED CELL DISTRIBUTION WIDTH 16.6 % (11.5-14.5); WHITE BLOOD COUNT 17.7 10^3/uL (4.5-11.0)
[2019-01-05 07:17] LABS: ALB/GLOB RATIO 0.9 (1.1-1.8); ALBUMIN 2.6 g/dL (3.0-4.8); CALCIUM 7.7 mg/dL (8.4-10.5)
[2019-01-05] MEDS: Insulin Regular 1 UNITS/0.01 ML ML SC SCH ×3 (08:22→17:34)
[2019-01-05] MEDS: Insulin Reg-MEDIUM-Coverage SC SCH ×4 (08:22→23:10)
[2019-01-05 08:23] LABS: HEPATITIS B SURFACE AG Negative (NEGATIVE)
[2019-01-05 08:29] LABS: HEPATITIS B CORE AB NEGATIVE (NEGATIVE)
[2019-01-05] MEDS: Arformoterol 15 mcg/2 ml Inh Sol IH SCH ×2 (08:40→20:10)
[2019-01-05] MEDS: Budesonide 0.5 mg/2 ml Inhal Susp UD IH SCH ×2 (08:40→20:12)
[2019-01-05] MEDS ORDERED: Enoxaparin 40 mg Syringe SC SCH (10:00)
--- NOTE | 2019-01-05 10:07 | CP.PCM.PN ---
<Sarthak Obrien - Last Filed: 01/05/19 18:14> Subjective - Date & Time of Evaluation Date of Evaluation: 01/05/19 Time of Evaluation: 08:00 - Subjective Subjective: Nephrology progress note - Camille, PGY - 2 Patient seen and examined at bedside. No acute overnight events. Patient had first HD treatment on Saturday, Jan 03, next one scheduled for today. Patient denies any new complaints, breathing is still fine, still complains of R LE pain. Objective - Vital Signs/Intake and Output Vital Signs (last 24 hours): Temp Pulse Resp BP Pulse Ox 98 F 72 19 152/65 H 98 01/05/19 08:20 01/05/19 08:20 01/05/19 08:20 01/05/19 08:20 01/05/19 08:20 Intake and Output: 01/05/19 01/05/19 06:59 18:59 Intake Total 240 Output Total 1000 Balance -760 - Medications Medications: Current Medications Albuterol/Ipratropium (Duoneb 3 Mg/0.5 Mg (3 Ml) Ud) 3 ml IH [id number] [facility] Last Admin: 01/05/19 08:40 Dose: Not Given Albuterol/Ipratropium (Duoneb 3 Mg/0.5 Mg (3 Ml) Ud) 3 ml IH RQ2 PRN PRN Reason: Shortness of Breath Amlodipine Besylate (Norvasc) 10 mg PO DAILY [facility] Last Admin: 01/04/19 10:29 Dose: 10 mg Arformoterol Tartrate (Brovana) 15 mcg IH [id number] [facility] Last Admin: 01/05/19 08:40 Dose: Not Given Atorvastatin Calcium (Lipitor) 40 mg PO DAILY [facility] Last Admin: 01/04/19 10:29 Dose: 40 mg Budesonide (Pulmicort Respules) 0.5 mg IH [id number] [facility] Last Admin: 01/05/19 08:40 Dose: Not Given Carvedilol (Coreg) 25 mg PO Q12H [facility] Last Admin: 01/05/19 05:53 Dose: 25 mg Clonidine HCl (Catapres Tts1 0.1 Mg/24 Hr) 1 patch TD QWK [facility] Last Admin: 12/31/18 11:01 Dose: 1 patch Dextrose (Dextrose 50% Inj) 0 ml IV STAT PRN; Protocol PRN Reason: Hypoglycemia Protocol Ergocalciferol (Drisdol 50,000 Intl Units Cap) 1 cap PO Q7D [facility] Last Admin: 01/03/19 10:31 Dose: 1 cap Glimepiride (Amaryl) 1 mg PO DAILY [facility] Last Admin: 01/04/19 10:29 Dose: 1 mg Heparin Sodium (Porcine) (Heparin) 5,000 units SC Q8 [facility]; Protocol Last Admin: 01/05/19 05:52 Dose: 5,000 units Hydralazine HCl (Apresoline) 10 mg IVP Q6 PRN PRN Reason: Systolic Blood Pressure Last Admin: 12/27/18 06:48 Dose: 10 mg Hydralazine HCl (Apresoline) 100 mg PO Q8H [facility] Last Admin: 01/05/19 04:44 Dose: 100 mg Dextrose (Dextrose 5% In Water 1000 Ml) 1,000 mls @ 0 mls/hr IV .Q0M PRN; Protocol PRN Reason: Hypoglycemia Protocol Insulin Detemir (Levemir) 5 unit SC HS [facility] Last Admin: 01/04/19 21:50 Dose: 5 units Insulin Human Regular (Humulin R Med) 0 units SC ACHS [facility]; Protocol Last Admin: 01/05/19 08:22 Dose: Not Given Insulin Human Regular (Humulin R) 6 units SC AC [facility] Last Admin: 01/05/19 08:22 Dose: Not Given Losartan Potassium (Cozaar) 25 mg PO DAILY [facility] Methylprednisolone (Solu-Medrol) 20 mg IVP Q12 [facility] Last Admin: 01/04/19 22:30 Dose: 20 mg Pantoprazole Sodium (Protonix Ec Tab) 40 mg PO 0600 [facility] Last Admin: 01/05/19 05:52 Dose: 40 mg Patiromer (Veltassa) 8.4 gm PO DAILY [facility] Last Admin: 01/03/19 22:20 Dose: 8.4 gm Sevelamer HCl (Renagel) 800 mg PO WM [facility] Last Admin: 01/05/19 08:23 Dose: Not Given Torsemide (Demadex) 20 mg PO DAILY [facility] Last Admin: 01/04/19 10:29 Dose: 20 mg - Labs Labs: 01/05/19 06:20 01/05/19 06:20 PT 13.4 SECONDS (9.4-12.5) H 12/23/18 10:56 INR 1.19 12/23/18 10:56 APTT 35.0 Seconds (26.9-38.3) 12/23/18 10:56 - Constitutional Appears: Well - Head Exam Head Exam: ATRAUMATIC, NORMAL INSPECTION, NORMOCEPHALIC - Eye Exam Eye Exam: EOMI, Normal appearance, PERRL Pupil Exam: NORMAL ACCOMODATION, PERRL - ENT Exam ENT Exam: Mucous Membranes Moist, Normal Exam - Neck Exam Neck Exam: Full ROM, Normal Inspection. absent: Lymphadenopathy - Respiratory Exam Respiratory Exam: Clear to Ausculation Bilateral, NORMAL BREATHING PATTERN - Cardiovascular Exam Cardiovascular Exam: REGULAR RHYTHM, +S1, +S2. absent: Murmur - GI/Abdominal Exam GI & Abdominal Exam: Soft, Normal Bowel Sounds. absent: Tenderness - Extremities Exam Extremities Exam: Full ROM, Normal Capillary Refill, Normal Inspection. absent: Joint Swelling, Pedal Edema - Back Exam Back Exam: NORMAL INSPECTION - Neurological Exam Neurological Exam: Alert, Awake, CN II-XII Intact, Normal Gait, Oriented x3 - Psychiatric Exam Psychiatric exam: Normal Affect, Normal Mood - Skin Skin Exam: Dry, Intact, Normal Color, Warm Assessment and Plan (1) ESRD on hemodialysis Assessment & Plan: Stable electrolyte status; patient still shows signs of fluid overload on exam, but respiratory status is fine - No need for Veltassa today - Continue with Torsemide 20 daily - HD scheduled for today - Reached out to IR regarding tunneled HD cath schedule - Continue to avoid nephrotoxic agents Status: Chronic (2) Hypertensive CKD, ESRD on dialysis Assessment & Plan: Patient still having elevated blood pressures - Continue HD with UF today; Continue Torsemide 20 daily - Continue Losartan, Norvasc, Coreg, Hydralazine; Continue with Clonidine patch Status: Chronic (3) Anemia Assessment & Plan: H/H stable at 10.8 today, at goal for CKD - S/p two doses of Aranesp, will give as needed - Consider Fe supplement Status: Chronic (4) Hyperkalemia Assessment & Plan: Stable today - HD today - Hold Veltassa Status: Chronic (5) Chronic kidney disease-mineral and bone disorder Assessment & Plan: - Continue with Sevelamer w/ meals Status: Chronic (6) Nephrotic syndrome Assessment & Plan: - Continue HD as above Status: Chronic <Darron Santiago - Last Filed: 01/06/19 08:19> Objective - Vital Signs/Intake and Output Vital Signs (last 24 hours): Temp Pulse Resp BP Pulse Ox 98.2 F 64 20 162/68 H 98 01/06/19 07:53 01/06/19 07:53 01/06/19 07:53 01/06/19 07:53 01/06/19 07:53 Intake and Output: 01/06/19 01/06/19 06:59 18:59 Output Total 700 Balance -700 - Medications Medications: Current Medications Acetaminophen (Tylenol 325mg Tab) 650 mg PO Q6H PRN PRN Reason: Pain, moderate (4-7) Last Admin: 01/05/19 16:13 Dose: 650 mg Albuterol/Ipratropium (Duoneb 3 Mg/0.5 Mg (3 Ml) Ud) 3 ml IH [id number] [facility] Last Admin: 01/06/19 01:50 Dose: 3 ml Albuterol/Ipratropium (Duoneb 3 Mg/0.5 Mg (3 Ml) Ud) 3 ml IH RQ2 PRN PRN Reason: Shortness of Breath Amlodipine Besylate (Norvasc) 10 mg PO DAILY [facility] Last Admin: 01/05/19 12:02 Dose: Not Given Arformoterol Tartrate (Brovana) 15 mcg IH [id number] [facility] Last Admin: 01/05/19 20:10 Dose: 15 mcg Atorvastatin Calcium (Lipitor) 40 mg PO DAILY [facility] Last Admin: 01/05/19 12:02 Dose: Not Given Budesonide (Pulmicort Respules) 0.5 mg IH [id number] [facility] Last Admin: 01/05/19 20:12 Dose: 0.5 mg Carvedilol (Coreg) 25 mg PO Q12H [facility] Last Admin: 01/06/19 06:12 Dose: 25 mg Clonidine HCl (Catapres Tts1 0.1 Mg/24 Hr) 1 patch TD QWK [facility] Last Admin: 12/31/18 11:01 Dose: 1 patch Dextrose (Dextrose 50% Inj) 0 ml IV STAT PRN; Protocol PRN Reason: Hypoglycemia Protocol Ergocalciferol (Drisdol 50,000 Intl Units Cap) 1 cap PO Q7D [facility] Last Admin: 01/03/19 10:31 Dose: 1 cap Glimepiride (Amaryl) 1 mg PO DAILY [facility] Last Admin: 01/05/19 11:59 Dose: Not Given Heparin Sodium (Porcine) (Heparin) 5,000 units SC Q8 [facility]; Protocol Last Admin: 01/06/19 05:26 Dose: 5,000 units Hydralazine HCl (Apresoline) 10 mg IVP Q6 PRN PRN Reason: Systolic Blood Pressure Last Admin: 12/27/18 06:48 Dose: 10 mg Hydralazine HCl (Apresoline) 100 mg PO Q8H [facility] Last Admin: 01/06/19 04:58 Dose: 100 mg Dextrose (Dextrose 5% In Water 1000 Ml) 1,000 mls @ 0 mls/hr IV .Q0M PRN; Protocol PRN Reason: Hypoglycemia Protocol Insulin Detemir (Levemir) 5 unit SC HS [facility] Last Admin: 01/05/19 23:10 Dose: 5 units Insulin Human Regular (Humulin R Med) 0 units SC ACHS [facility]; Protocol Last Admin: 01/05/19 23:10 Dose: Not Given Insulin Human Regular (Humulin R) 6 units SC AC [facility] Last Admin: 01/05/19 17:34 Dose: 6 units Losartan Potassium (Cozaar) 50 mg PO DAILY [facility] Pantoprazole Sodium (Protonix Ec Tab) 40 mg PO 0600 [facility] Last Admin: 01/06/19 06:13 Dose: 40 mg Patiromer (Veltassa) 8.4 gm PO DAILY [facility] Last Admin: 01/03/19 22:20 Dose: 8.4 gm Prednisone (Prednisone Tab) 20 mg PO DAILY [facility] Sevelamer HCl (Renagel) 800 mg PO WM [facility] Last Admin: 01/05/19 17:35 Dose: 800 mg Torsemide (Demadex) 20 mg PO DAILY [facility] Last Admin: 01/05/19 12:00 Dose: Not Given - Labs Labs: 01/06/19 06:20 01/06/19 06:20 PT 13.4 SECONDS (9.4-12.5) H 12/23/18 10:56 INR 1.19 12/23/18 10:56 APTT 35.0 Seconds (26.9-38.3) 12/23/18 10:56 Assessment and Plan (1) ESRD on hemodialysis Status: Chronic (2) Hypertensive CKD, ESRD on dialysis Status: Chronic (3) Hyperkalemia Status: Chronic (4) Nephrotic syndrome Status: Chronic (5) Anemia Status: Chronic (6) Chronic kidney disease-mineral and bone disorder Status: Chronic Attending/Attestation - Attestation I have personally seen and examined this patient.: Yes I have fully participated in the care of the patient.: Yes I have reviewed all pertinent clinical information, including history, physical exam and plan: Yes Notes (Text): Patient seen and examined; I agree with the resident's note as above with the following additions/edits: Patient seen on HD today; 2nd treatment since initiation of HD 2 days ago in the setting of progressive CKD V with volume excess and hyperkalemia; Currently with stable electrolyte status; volume status stable but still significant lower ext edema; mild rales on exam; Increasing leukocytosis despite steroids being tapered down; blood cultures neg since 48 hrs; concern whether we should delay placing tunneled HD cath for another day; discussed with PMD; obtaining repeat blood culture today, will re- assess tomorrow; HTN of ESRD with BP still elevated, losartan just started; continue rest of meds including diuretics; Phos relatively controlled, continue sevelamer 1 tab w/ meals; Hgb stable s/p aranesp, will monitor; Patient awaiting outpatient HD setup, will f/u; otherwise, next HD either for tomorrow or Saturday.
[2019-01-05 10:11] LABS: TOTAL VOLUME 2.0 Liters
[2019-01-05] MEDS: MethylPREDNISolone 40 mg Vial IVP SCH (12:02)
[2019-01-05 12:44] LABS: HEPATITIS B SURFACE AG Negative (NEGATIVE)
[2019-01-05 13:00] LABS: HEPATITIS B CORE AB NEGATIVE (NEGATIVE)
--- NOTE | 2019-01-05 14:43 | CP.PCM.PN ---
<Marcelo Cole - Last Filed: 01/05/19 14:40> Subjective - Date & Time of Evaluation Date of Evaluation: 01/05/19 Time of Evaluation: 08:00 - Subjective Subjective: Marcelo Cole, PGY1 Medicine Progress Note for Dr. Evangelista Patient was seen and examined at bedside this morning. Vital signs stable. Faroese american sign language teacher was used at bedside. Patient will be going for HD again today. She denies cp, sob, n/v/d, abdominal pain. No adverse overnight events. R-IJ is in place. A full 12 point ROS was conducted and unremarkable except as stated above. Objective - Vital Signs/Intake and Output Vital Signs (last 24 hours): Temp Pulse Resp BP Pulse Ox 98 F 72 19 170/76 H 98 01/05/19 08:20 01/05/19 11:59 01/05/19 08:20 01/05/19 11:59 01/05/19 08:20 Intake and Output: 01/05/19 01/05/19 06:59 18:59 Intake Total 240 Output Total 1000 Balance -760 - Medications Medications: Current Medications Albuterol/Ipratropium (Duoneb 3 Mg/0.5 Mg (3 Ml) Ud) 3 ml IH [id number] [facility] Last Admin: 01/05/19 13:38 Dose: Not Given Albuterol/Ipratropium (Duoneb 3 Mg/0.5 Mg (3 Ml) Ud) 3 ml IH RQ2 PRN PRN Reason: Shortness of Breath Amlodipine Besylate (Norvasc) 10 mg PO DAILY [facility] Last Admin: 01/05/19 12:02 Dose: Not Given Arformoterol Tartrate (Brovana) 15 mcg IH [id number] [facility] Last Admin: 01/05/19 08:40 Dose: Not Given Atorvastatin Calcium (Lipitor) 40 mg PO DAILY [facility] Last Admin: 01/05/19 12:02 Dose: Not Given Budesonide (Pulmicort Respules) 0.5 mg IH [id number] [facility] Last Admin: 01/05/19 08:40 Dose: Not Given Carvedilol (Coreg) 25 mg PO Q12H [facility] Last Admin: 01/05/19 05:53 Dose: 25 mg Clonidine HCl (Catapres Tts1 0.1 Mg/24 Hr) 1 patch TD QWK [facility] Last Admin: 02/13/19 11:01 Dose: 1 patch Dextrose (Dextrose 50% Inj) 0 ml IV STAT PRN; Protocol PRN Reason: Hypoglycemia Protocol Ergocalciferol (Drisdol 50,000 Intl Units Cap) 1 cap PO Q7D [facility] Last Admin: 01/03/19 10:31 Dose: 1 cap Glimepiride (Amaryl) 1 mg PO DAILY [facility] Last Admin: 01/05/19 11:59 Dose: Not Given Heparin Sodium (Porcine) (Heparin) 5,000 units SC Q8 [facility]; Protocol Last Admin: 01/05/19 05:52 Dose: 5,000 units Hydralazine HCl (Apresoline) 10 mg IVP Q6 PRN PRN Reason: Systolic Blood Pressure Last Admin: 12/27/18 06:48 Dose: 10 mg Hydralazine HCl (Apresoline) 100 mg PO Q8H [facility] Last Admin: 01/05/19 11:59 Dose: 100 mg Dextrose (Dextrose 5% In Water 1000 Ml) 1,000 mls @ 0 mls/hr IV .Q0M PRN; Protocol PRN Reason: Hypoglycemia Protocol Insulin Detemir (Levemir) 5 unit SC HS [facility] Last Admin: 01/04/19 21:50 Dose: 5 units Insulin Human Regular (Humulin R Med) 0 units SC ACHS [facility]; Protocol Last Admin: 01/05/19 12:01 Dose: Not Given Insulin Human Regular (Humulin R) 6 units SC AC [facility] Last Admin: 01/05/19 12:01 Dose: 6 units Losartan Potassium (Cozaar) 25 mg PO DAILY [facility] Last Admin: 01/05/19 12:00 Dose: Not Given Pantoprazole Sodium (Protonix Ec Tab) 40 mg PO 0600 [facility] Last Admin: 01/05/19 05:52 Dose: 40 mg Patiromer (Veltassa) 8.4 gm PO DAILY [facility] Last Admin: 01/03/19 22:20 Dose: 8.4 gm Prednisone (Prednisone Tab) 20 mg PO DAILY [facility] Sevelamer HCl (Renagel) 800 mg PO WM [facility] Last Admin: 01/05/19 12:03 Dose: 800 mg Torsemide (Demadex) 20 mg PO DAILY [facility] Last Admin: 01/05/19 12:00 Dose: Not Given - Labs Labs: 01/05/19 06:20 01/05/19 06:20 PT 13.4 SECONDS (9.4-12.5) H 12/23/18 10:56 INR 1.19 12/23/18 10:56 APTT 35.0 Seconds (26.9-38.3) 12/23/18 10:56 - Constitutional Appears: No Acute Distress - Head Exam Head Exam: ATRAUMATIC, NORMAL INSPECTION, NORMOCEPHALIC - Eye Exam Eye Exam: EOMI, Normal appearance - ENT Exam ENT Exam: Mucous Membranes Moist - Neck Exam Additional comments: R-IJ trialysis catheter is in place. - Respiratory Exam Respiratory Exam: Wheezing (improving since admission). Clear to Ausculation Bilateral, NORMAL BREATHING PATTERN. absent: Rales, Rhonchi, Respiratory Distress - Cardiovascular Exam Cardiovascular Exam: RRR, +S1, +S2 - GI/Abdominal Exam GI & Abdominal Exam: Soft, Normal Bowel Sounds. absent: Tenderness - Extremities Exam Extremities Exam: Full ROM, Normal Capillary Refill, Tenderness (mild tenderness to palpation of lower ext. ). absent: Pedal Edema Additional comments: +2 pitting edema bilateral lower ext. - Neurological Exam Neurological Exam: Alert, Awake, Oriented x3 - Psychiatric Exam Psychiatric exam: Normal Affect, Normal Mood - Skin Skin Exam: Dry, Intact, Normal Color, Warm Assessment and Plan - Assessment and Plan (Free Text) Assessment: Patient is a 68 y/o Faroese speaking F with PMHx of CKD, DM2, HTN, HLD, anemia who presented to ED for change in mental status, lethargy and weakness. Admitted for toxic metabolic encephalopathy 2/2 ESBL UTI which has now resolved. Also found to have HTN 2/2 CKD, shortness of breath 2/2 undiagnosed asthma and is now ESRD on HD. Plan: ESRD - on HD - plan for HD session today - Plan for permacath placement via IR - s/p temporary trialysis catheter at the R-IJ (01/03) - BUN/Cr 86/3.3; continue to monitor - continue home renvela and ergocalciferol - c/w torsemide - IR is on consult (Dr. Valverde) for permacath placement. - Nephro following (Dr. Santiago). Recs appreciated. HTN 2/2 CKD - Blood pressure continues to remain elevated - c/w amlodipine 10mg PO daily, carvedilol 25mg PO q12, hydralazine 100mg PO q8, and clonidine - Medications adjusted as per nephrology (Dr. Santiago) Shortness of Breath 2/2 Undiagnosed Asthma - improving - Leukocytosis likely due to steroid use, will taper steroids - tapered steroids to prednisone 20mg PO daily - c/w pulmicort, brovana, duonebs, torsemide - Pulm on consult (Dr. Morton). Recs were appreciated. Patient needs outpatient PFT evaluation. Hyperkalemia - resolved - improved with HD sessions - continue to monitor K level Toxic Metabolic Encephalopathy 2/2 ESBL UTI - resolved - Repeat UA is negative for UTI (01/04) - Repeat blood cx are negative x2 (prelim) - completed IV antibiotic course with merrem for 10 days. Consider removing PICC line (placed 12/29) as patient completed course. - ID is on consult (Dr. Quiros). Recs appreciated. Anemia of CKD - Hgb stable - c/w IV iron - Hgb was 7.8 on admission, s/p x2 pRBC total during hospital course - Heme (Dr. Vernon) on consult. Recs appreciated. - GI (Dr. Narayan) on consult. Recs appreciated. DM2 - Continue glimepiride - ISS (med) - Accuchecks HLD - continue atorvastatin DVT/GI PPx: heparin sc/protonix Diet: Renal Diet Dispo: Continue to monitor patient on the floor. Pending HD session today. Plan for permacath placement by IR. Case was discussed and reviewed with Attending Physician, Dr. Evangelista. <Geovanni Evangelista - Last Filed: 01/05/19 18:42> Objective - Vital Signs/Intake and Output Vital Signs (last 24 hours): Temp Pulse Resp BP Pulse Ox 98 F 65 19 174/71 H 98 01/05/19 08:20 01/05/19 17:33 01/05/19 08:20 01/05/19 17:33 01/05/19 08:20 Intake and Output: 01/05/19 01/05/19 06:59 18:59 Intake Total 240 Output Total 1000 Balance -760 - Medications Medications: Current Medications Acetaminophen (Tylenol 325mg Tab) 650 mg PO Q6H PRN PRN Reason: Pain, moderate (4-7) Last Admin: 01/05/19 16:13 Dose: 650 mg Albuterol/Ipratropium (Duoneb 3 Mg/0.5 Mg (3 Ml) Ud) 3 ml IH [id number] [facility] Last Admin: 01/05/19 13:38 Dose: Not Given Albuterol/Ipratropium (Duoneb 3 Mg/0.5 Mg (3 Ml) Ud) 3 ml IH RQ2 PRN PRN Reason: Shortness of Breath Amlodipine Besylate (Norvasc) 10 mg PO DAILY [facility] Last Admin: 01/05/19 12:02 Dose: Not Given Arformoterol Tartrate (Brovana) 15 mcg IH [id number] [facility] Last Admin: 01/05/19 08:40 Dose: Not Given Atorvastatin Calcium (Lipitor) 40 mg PO DAILY [facility] Last Admin: 01/05/19 12:02 Dose: Not Given Budesonide (Pulmicort Respules) 0.5 mg IH [id number] [facility] Last Admin: 01/05/19 08:40 Dose: Not Given Carvedilol (Coreg) 25 mg PO Q12H [facility] Last Admin: 01/05/19 17:33 Dose: 25 mg Clonidine HCl (Catapres Tts1 0.1 Mg/24 Hr) 1 patch TD QWK [facility] Last Admin: 12/31/18 11:01 Dose: 1 patch Dextrose (Dextrose 50% Inj) 0 ml IV STAT PRN; Protocol PRN Reason: Hypoglycemia Protocol Ergocalciferol (Drisdol 50,000 Intl Units Cap) 1 cap PO Q7D [facility] Last Admin: 01/03/19 10:31 Dose: 1 cap Glimepiride (Amaryl) 1 mg PO DAILY [facility] Last Admin: 01/05/19 11:59 Dose: Not Given Heparin Sodium (Porcine) (Heparin) 5,000 units SC Q8 [facility]; Protocol Last Admin: 01/05/19 15:00 Dose: 5,000 units Hydralazine HCl (Apresoline) 10 mg IVP Q6 PRN PRN Reason: Systolic Blood Pressure Last Admin: 12/27/18 06:48 Dose: 10 mg Hydralazine HCl (Apresoline) 100 mg PO Q8H [facility] Last Admin: 01/05/19 11:59 Dose: 100 mg Dextrose (Dextrose 5% In Water 1000 Ml) 1,000 mls @ 0 mls/hr IV .Q0M PRN; Protocol PRN Reason: Hypoglycemia Protocol Insulin Detemir (Levemir) 5 unit SC HS [facility] Last Admin: 01/04/19 21:50 Dose: 5 units Insulin Human Regular (Humulin R Med) 0 units SC ACHS [facility]; Protocol Last Admin: 01/05/19 17:30 Dose: Not Given Insulin Human Regular (Humulin R) 6 units SC AC [facility] Last Admin: 01/05/19 17:34 Dose: 6 units Losartan Potassium (Cozaar) 25 mg PO DAILY [facility] Last Admin: 01/05/19 17:33 Dose: 25 mg Pantoprazole Sodium (Protonix Ec Tab) 40 mg PO 0600 [facility] Last Admin: 01/05/19 05:52 Dose: 40 mg Patiromer (Veltassa) 8.4 gm PO DAILY [facility] Last Admin: 01/03/19 22:20 Dose: 8.4 gm Prednisone (Prednisone Tab) 20 mg PO DAILY [facility] Sevelamer HCl (Renagel) 800 mg PO WM [facility] Last Admin: 01/05/19 17:35 Dose: 800 mg Torsemide (Demadex) 20 mg PO DAILY [facility] Last Admin: 01/05/19 12:00 Dose: Not Given - Labs Labs: 01/05/19 06:20 01/05/19 06:20 PT 13.4 SECONDS (9.4-12.5) H 12/23/18 10:56 INR 1.19 12/23/18 10:56 APTT 35.0 Seconds (26.9-38.3) 12/23/18 10:56 Attending/Attestation - Attestation I have personally seen and examined this patient.: Yes I have fully participated in the care of the patient.: Yes I have reviewed all pertinent clinical information, including history, physical exam and plan: Yes Notes (Text): 01/05/19 18:37 Attending note; Patient seen and examined with resident. s/p dialysis today. Clinically afebrile and nontoxic. tolerating diet well. Patient is a 68-year-old female with past medical history significant for chronic kidney disease, type 2 diabetes, hypertension, hyperlipidemia, and anemia that presented to the emergency room for change in mental status, lethargy, and weakness. 1. ESRD requiring dialysis. S/P dialysis today. Feeling weak after dialysis. Monitor closely. Next dialysis tomorrow. S/P right internal jugular HD access. Vein mapping completed. Continue Renagel. Continue Torsemide. Chest xray showed no active disease. 2. Dyspnea. resolving. Chest xray showed no active disease. Continue nebulizer treatments. Continue to aper po prednisone. Continue pulmicort and Brovana. Pulmonary evalaution appreciated. Will need outpatient PFTs. Chest CT showed no acute findings; stable pulmonary parenchymal findings including scarring/postoperative changes right lung; chronic interstitial lung disease, mosaic pattern; no suspicious pulmonary nodules, masses, or infiltrates. V/Q scan low probability for pulmonary embolism. 3. UTI. Urine culture positive for ESBL and Beta hemolytic Strep Group B. Resolved. S/P treatment with Merrem. ID following, recommendations appreciated. Patient afebrile and no leukocytosis. Blood cultures with no growth. 4. Toxic metabolic encephalopathy. Likey secondary to UTI. Resolved. Neurology following, recommendations appreciated. Head CT showed no acute intracranial pathology identified. Brain MRI showed no acute intracranial findings. Continue supportive care. 5. Essential hypertension. Continue Norvasc, Coreg, Clonidine patch, hydrala zine, and torsemide. 6. DM2. Continue insulin sliding scale, Continue amaryl. Continue humulin R AC. Continue levemir. Hyperglycemia secondary to steroids. 7. Hyperlipidemia. Continue Lipitor. 8. Anemia of chronic disease. s/p 2 unit Prbc transfusion. S/P IV iron. H&H stable, continue to monitor. Weekly Aranesp. 9. GI/DVT prophylaxis. Protonix/heparin Plan for permacath placement. field case manager assisting to get outpatient dialysis unit placement. Upon discharge the patient will follow up with PMD DR. Chandra. 01/05/19 18:40
--- NOTE | 2019-01-05 15:25 | CP.PCM.PN ---
Subjective - Date & Time of Evaluation Date of Evaluation: 01/05/19 Time of Evaluation: 11:30 - Subjective Subjective: Afebrile, comfortable, not in distress. Objective - Vital Signs/Intake and Output Vital Signs (last 24 hours): Temp Pulse Resp BP Pulse Ox 97.1 F L 82 20 152/64 H 96 01/03/19 18:00 01/04/19 06:50 01/03/19 18:00 01/04/19 06:50 01/03/19 18:00 - Medications Medications: Current Medications Albuterol/Ipratropium (Duoneb 3 Mg/0.5 Mg (3 Ml) Ud) 3 ml IH [id number] [facility] Last Admin: 01/04/19 07:44 Dose: 3 ml Albuterol/Ipratropium (Duoneb 3 Mg/0.5 Mg (3 Ml) Ud) 3 ml IH RQ2 PRN PRN Reason: Shortness of Breath Amlodipine Besylate (Norvasc) 10 mg PO DAILY [facility] Last Admin: 01/03/19 10:26 Dose: 10 mg Arformoterol Tartrate (Brovana) 15 mcg IH [id number] [facility] Last Admin: 01/04/19 07:44 Dose: 15 mcg Atorvastatin Calcium (Lipitor) 40 mg PO DAILY [facility] Last Admin: 01/03/19 10:27 Dose: 40 mg Budesonide (Pulmicort Respules) 0.5 mg IH [id number] [facility] Last Admin: 01/04/19 07:45 Dose: 0.5 mg Carvedilol (Coreg) 25 mg PO Q12H [facility] Last Admin: 01/04/19 06:50 Dose: 25 mg Clonidine HCl (Catapres Tts1 0.1 Mg/24 Hr) 1 patch TD QWK [facility] Last Admin: 12/31/18 11:01 Dose: 1 patch Dextrose (Dextrose 50% Inj) 0 ml IV STAT PRN; Protocol PRN Reason: Hypoglycemia Protocol Ergocalciferol (Drisdol 50,000 Intl Units Cap) 1 cap PO Q7D [facility] Last Admin: 01/03/19 10:31 Dose: 1 cap Glimepiride (Amaryl) 1 mg PO DAILY [facility] Last Admin: 01/03/19 10:27 Dose: 1 mg Hydralazine HCl (Apresoline) 10 mg IVP Q6 PRN PRN Reason: Systolic Blood Pressure Last Admin: 12/27/18 06:48 Dose: 10 mg Hydralazine HCl (Apresoline) 100 mg PO Q8H [facility] Last Admin: 01/04/19 03:42 Dose: Not Given Dextrose (Dextrose 5% In Water 1000 Ml) 1,000 mls @ 0 mls/hr IV .Q0M PRN; Protocol PRN Reason: Hypoglycemia Protocol Insulin Detemir (Levemir) 5 unit SC HS [facility] Last Admin: 01/03/19 22:20 Dose: 5 units Insulin Human Regular (Humulin R Med) 0 units SC ACHS [facility]; Protocol Last Admin: 01/04/19 08:07 Dose: 5 units Insulin Human Regular (Humulin R) 6 units SC AC [facility] Last Admin: 01/04/19 08:08 Dose: 6 units Methylprednisolone (Solu-Medrol) 20 mg IVP Q12 [facility] Last Admin: 01/03/19 22:20 Dose: 20 mg Pantoprazole Sodium (Protonix Ec Tab) 40 mg PO 0600 [facility] Last Admin: 01/04/19 06:42 Dose: 40 mg Patiromer (Veltassa) 8.4 gm PO DAILY [facility] Last Admin: 01/03/19 22:20 Dose: 8.4 gm Sevelamer HCl (Renagel) 800 mg PO WM [facility] Last Admin: 01/04/19 08:07 Dose: 800 mg Torsemide (Demadex) 20 mg PO DAILY [facility] Last Admin: 01/03/19 10:27 Dose: 20 mg - Labs Labs: 01/04/19 06:50 01/04/19 06:50 PT 13.4 SECONDS (9.4-12.5) H 12/23/18 10:56 INR 1.19 12/23/18 10:56 APTT 35.0 Seconds (26.9-38.3) 12/23/18 10:56 - Constitutional Appears: Chronically Ill - Head Exam Head Exam: NORMAL INSPECTION - Respiratory Exam Respiratory Exam: Decreased Breath Sounds - Cardiovascular Exam Cardiovascular Exam: +S1, +S2 - GI/Abdominal Exam GI & Abdominal Exam: Soft. absent: Tenderness Assessment and Plan - Assessment and Plan (Free Text) Plan: Asssessment S/P systemic inflammatory response syndrome, consider sepsis due to UTI with Group B Strep and ESBL E. coli - persistent leukocytosis R/O other source of infection but probably from steroid use history of right pyelonephritis with ESBL E. 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 Evangelista
[2019-01-05] MEDS: Insulin Detemir 100 units/ml Vial (Levemir) SC SCH (23:10)
[2019-01-06] MEDS: Albuterol-Ipratrop 3 mg / 0.5 (3 ml) UD IH SCH ×4 (01:50→20:43)
[2019-01-06] MEDS: Pantoprazole 40 mg EC Tab PO SCH (06:13)
[2019-01-06 06:51] LABS: HEMOGLOBIN 11.6 g/dL (12.0-16.0); MEAN CELL VOLUME 95.2 fl (80.0-105.0); MEAN CORPUSCULAR HEMOGLOBIN 31.1 pg (25.0-35.0); MEAN CORPUSCULAR HGB CONC 32.7 g/dl (31.0-37.0); MEAN PLATELET VOLUME 10.1 fl (7.0-11.0); RBC 3.73 10^6/uL (3.5-6.1); RED CELL DISTRIBUTION WIDTH 16.9 % (11.5-14.5); WHITE BLOOD COUNT 11.7 10^3/uL (4.5-11.0)
[2019-01-06 07:14] LABS: ALBUMIN 2.5 g/dL (3.0-4.8); CALCIUM 7.7 mg/dL (8.4-10.5)
[2019-01-06] MEDS: Arformoterol 15 mcg/2 ml Inh Sol IH SCH ×2 (08:29→20:43)
[2019-01-06] MEDS: Budesonide 0.5 mg/2 ml Inhal Susp UD IH SCH ×2 (08:39→20:43)
[2019-01-06] MEDS: Insulin Regular 1 UNITS/0.01 ML ML SC SCH ×3 (08:40→19:09)
[2019-01-06] MEDS: Insulin Reg-MEDIUM-Coverage SC SCH ×4 (08:40→22:18)
--- NOTE | 2019-01-06 11:26 | CP.PCM.PN ---
<Isidro Rushing - Last Filed: 01/06/19 11:26> Subjective - Date & Time of Evaluation Date of Evaluation: 01/06/19 Time of Evaluation: 06:00 - Subjective Subjective: Isidro Rushing PGY2 Nephrology Progress Note for Dr. Santiago Patient seen and evaluated bedside. No acute issues overnight. Patient denies any complaints and says she is eating well. Objective - Vital Signs/Intake and Output Vital Signs (last 24 hours): Temp Pulse Resp BP Pulse Ox 98.2 F 64 20 164/68 H 98 01/06/19 07:53 01/06/19 10:59 01/06/19 07:53 01/06/19 11:00 01/06/19 07:53 Intake and Output: 01/06/19 01/06/19 06:59 18:59 Output Total 700 Balance -700 - Medications Medications: Current Medications Acetaminophen (Tylenol 325mg Tab) 650 mg PO Q6H PRN PRN Reason: Pain, moderate (4-7) Last Admin: 01/05/19 16:13 Dose: 650 mg Albuterol/Ipratropium (Duoneb 3 Mg/0.5 Mg (3 Ml) Ud) 3 ml IH [id number] [facility] Last Admin: 01/06/19 08:29 Dose: 3 ml Albuterol/Ipratropium (Duoneb 3 Mg/0.5 Mg (3 Ml) Ud) 3 ml IH RQ2 PRN PRN Reason: Shortness of Breath Amlodipine Besylate (Norvasc) 10 mg PO DAILY [facility] Last Admin: 01/06/19 11:00 Dose: 10 mg Arformoterol Tartrate (Brovana) 15 mcg IH [id number] [facility] Last Admin: 01/06/19 08:29 Dose: 15 mcg Atorvastatin Calcium (Lipitor) 40 mg PO DAILY [facility] Last Admin: 01/06/19 11:00 Dose: 40 mg Budesonide (Pulmicort Respules) 0.5 mg IH [id number] [facility] Last Admin: 01/06/19 08:39 Dose: 0.5 mg Carvedilol (Coreg) 25 mg PO Q12H [facility] Last Admin: 01/06/19 06:12 Dose: 25 mg Clonidine HCl (Catapres Tts1 0.1 Mg/24 Hr) 1 patch TD QWK [facility] Last Admin: 12/31/18 11:01 Dose: 1 patch Dextrose (Dextrose 50% Inj) 0 ml IV STAT PRN; Protocol PRN Reason: Hypoglycemia Protocol Ergocalciferol (Drisdol 50,000 Intl Units Cap) 1 cap PO Q7D [facility] Last Admin: 01/03/19 10:31 Dose: 1 cap Glimepiride (Amaryl) 1 mg PO DAILY [facility] Last Admin: 01/06/19 10:59 Dose: 1 mg Heparin Sodium (Porcine) (Heparin) 5,000 units SC Q8 [facility]; Protocol Last Admin: 01/06/19 05:26 Dose: 5,000 units Hydralazine HCl (Apresoline) 10 mg IVP Q6 PRN PRN Reason: Systolic Blood Pressure Last Admin: 12/27/18 06:48 Dose: 10 mg Hydralazine HCl (Apresoline) 100 mg PO Q8H [facility] Last Admin: 01/06/19 04:58 Dose: 100 mg Dextrose (Dextrose 5% In Water 1000 Ml) 1,000 mls @ 0 mls/hr IV .Q0M PRN; Protocol PRN Reason: Hypoglycemia Protocol Insulin Detemir (Levemir) 5 unit SC HS [facility] Last Admin: 01/05/19 23:10 Dose: 5 units Insulin Human Regular (Humulin R Med) 0 units SC ACHS [facility]; Protocol Last Admin: 01/06/19 08:40 Dose: Not Given Insulin Human Regular (Humulin R) 6 units SC AC [facility] Last Admin: 01/06/19 08:40 Dose: 6 units Losartan Potassium (Cozaar) 50 mg PO DAILY [facility] Last Admin: 01/06/19 10:59 Dose: 50 mg Pantoprazole Sodium (Protonix Ec Tab) 40 mg PO 0600 [facility] Last Admin: 01/06/19 06:13 Dose: 40 mg Patiromer (Veltassa) 8.4 gm PO DAILY [facility] Last Admin: 01/03/19 22:20 Dose: 8.4 gm Prednisone (Prednisone Tab) 20 mg PO DAILY [facility] Last Admin: 01/06/19 11:00 Dose: 20 mg Sevelamer HCl (Renagel) 800 mg PO WM [facility] Last Admin: 01/06/19 08:40 Dose: 800 mg Torsemide (Demadex) 20 mg PO BID [facility] - Labs Labs: 01/06/19 06:20 01/06/19 06:20 PT 13.4 SECONDS (9.4-12.5) H 12/23/18 10:56 INR 1.19 12/23/18 10:56 APTT 35.0 Seconds (26.9-38.3) 12/23/18 10:56 - Constitutional Appears: No Acute Distress - Head Exam Head Exam: ATRAUMATIC, NORMAL INSPECTION, NORMOCEPHALIC - Eye Exam Eye Exam: Normal appearance - ENT Exam ENT Exam: Mucous Membranes Moist - Respiratory Exam Respiratory Exam: Clear to Ausculation Bilateral, NORMAL BREATHING PATTERN - Cardiovascular Exam Cardiovascular Exam: REGULAR RHYTHM, +S1, +S2 - GI/Abdominal Exam GI & Abdominal Exam: Soft - Extremities Exam Extremities Exam: absent: Pedal Edema, Tenderness - Neurological Exam Neurological Exam: Alert, Awake, Oriented x3 Assessment and Plan - Assessment and Plan (Free Text) Plan: (1) ESRD on hemodialysis Assessment & Plan: Stable electrolyte status - increased torsemide dose to 20mg BID - HD scheduled for tomorrow - will reach out to IR regarding tunneled HD cath schedule - will speak to surgery regarding AV fistula placement - Continue to avoid nephrotoxic agents Status: Chronic (2) Hypertensive CKD, ESRD on dialysis Assessment & Plan: Patient still having elevated blood pressures - Torsemide increased 20 BID - Continue Losartan, Norvasc, Coreg, Hydralazine; Continue with Clonidine patch Status: Chronic (3) Anemia Assessment & Plan: H/H stable at 11.6 today, at goal for CKD - will administer aranesp as needed Status: Chronic (4) Hyperkalemia Assessment & Plan: Stable today Status: resolved (5) Chronic kidney disease-mineral and bone disorder Assessment & Plan: - Continue with Sevelamer w/ meals Status: Chronic (6) Nephrotic syndrome Assessment & Plan: - Continue HD as needed Status: Chronic <Darron Santiago - Last Filed: 01/07/19 07:05> Objective - Vital Signs/Intake and Output Vital Signs (last 24 hours): Temp Pulse Resp BP Pulse Ox 97.7 F 69 20 145/54 L 97 01/06/19 17:50 01/07/19 06:30 01/06/19 17:50 01/07/19 06:30 01/06/19 17:50 - Medications Medications: Current Medications Acetaminophen (Tylenol 325mg Tab) 650 mg PO Q6H PRN PRN Reason: Pain, moderate (4-7) Last Admin: 01/05/19 16:13 Dose: 650 mg Albuterol/Ipratropium (Duoneb 3 Mg/0.5 Mg (3 Ml) Ud) 3 ml IH [id number] [facility] Last Admin: 01/07/19 02:37 Dose: 3 ml Albuterol/Ipratropium (Duoneb 3 Mg/0.5 Mg (3 Ml) Ud) 3 ml IH RQ2 PRN PRN Reason: Shortness of Breath Amlodipine Besylate (Norvasc) 10 mg PO DAILY [facility] Last Admin: 01/06/19 11:00 Dose: 10 mg Arformoterol Tartrate (Brovana) 15 mcg IH [id number] [facility] Last Admin: 01/06/19 20:43 Dose: 15 mcg Atorvastatin Calcium (Lipitor) 40 mg PO DAILY [facility] Last Admin: 01/06/19 11:00 Dose: 40 mg Budesonide (Pulmicort Respules) 0.5 mg IH [id number] [facility] Last Admin: 01/06/19 20:43 Dose: 0.5 mg Carvedilol (Coreg) 25 mg PO Q12H [facility] Last Admin: 01/07/19 06:30 Dose: 25 mg Clonidine HCl (Catapres Tts1 0.1 Mg/24 Hr) 1 patch TD QWK [facility] Last Admin: 12/31/18 11:01 Dose: 1 patch Dextrose (Dextrose 50% Inj) 0 ml IV STAT PRN; Protocol PRN Reason: Hypoglycemia Protocol Ergocalciferol (Drisdol 50,000 Intl Units Cap) 1 cap PO Q7D [facility] Last Admin: 01/03/19 10:31 Dose: 1 cap Glimepiride (Amaryl) 1 mg PO DAILY [facility] Last Admin: 01/06/19 10:59 Dose: 1 mg Heparin Sodium (Porcine) (Heparin) 5,000 units SC Q8 [facility]; Protocol Last Admin: 01/07/19 05:22 Dose: 5,000 units Hydralazine HCl (Apresoline) 10 mg IVP Q6 PRN PRN Reason: Systolic Blood Pressure Last Admin: 12/27/18 06:48 Dose: 10 mg Hydralazine HCl (Apresoline) 100 mg PO Q8H [facility] Last Admin: 01/07/19 05:21 Dose: 100 mg Dextrose (Dextrose 5% In Water 1000 Ml) 1,000 mls @ 0 mls/hr IV .Q0M PRN; Protocol PRN Reason: Hypoglycemia Protocol Insulin Detemir (Levemir) 5 unit SC HS [facility] Last Admin: 01/06/19 22:14 Dose: 5 units Insulin Human Regular (Humulin R Med) 0 units SC ACHS [facility]; Protocol Last Admin: 01/06/19 22:18 Dose: Not Given Insulin Human Regular (Humulin R) 6 units SC AC [facility] Last Admin: 01/06/19 19:09 Dose: 6 units Losartan Potassium (Cozaar) 50 mg PO DAILY [facility] Last Admin: 01/06/19 10:59 Dose: 50 mg Pantoprazole Sodium (Protonix Ec Tab) 40 mg PO 0600 [facility] Last Admin: 01/07/19 05:21 Dose: 40 mg Patiromer (Veltassa) 8.4 gm PO DAILY [facility] Last Admin: 01/03/19 22:20 Dose: 8.4 gm Prednisone (Prednisone Tab) 20 mg PO DAILY [facility] Last Admin: 01/06/19 11:00 Dose: 20 mg Sevelamer HCl (Renagel) 800 mg PO WM [facility] Last Admin: 01/06/19 19:09 Dose: 800 mg Torsemide (Demadex) 20 mg PO BID [facility] Last Admin: 01/06/19 19:08 Dose: 20 mg - Labs Labs: 01/06/19 06:20 01/06/19 06:20 PT 13.4 SECONDS (9.4-12.5) H 12/23/18 10:56 INR 1.19 12/23/18 10:56 APTT 35.0 Seconds (26.9-38.3) 12/23/18 10:56 Assessment and Plan (1) ESRD on hemodialysis Status: Chronic (2) Hypertensive CKD, ESRD on dialysis Status: Chronic (3) Hyperkalemia Status: Chronic (4) Nephrotic syndrome Status: Chronic (5) Anemia Status: Chronic (6) Chronic kidney disease-mineral and bone disorder Status: Chronic Attending/Attestation - Attestation I have personally seen and examined this patient.: Yes I have fully participated in the care of the patient.: Yes I have reviewed all pertinent clinical information, including history, physical exam and plan: Yes Notes (Text): Patient seen and examined; I agree with the resident's note as above with the following additions/edits: 68 yo F w/ pmh of htn, dm, 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, with nephrotic syndrome, admitted with E coli ESBL UTI, now ESRD on HD; Last HD yesterday; stable electrolyte status; still edematous legs and BP still uncontrolled; torsemide 20 mg being increased to bid dosing and losartan increased to 50 mg daily; continue rest of meds; will aim for more UF on HD tomorrow (2L goal); Anemia of CKD, hgb stable s/p aranesp x 2, will monitor; Still awaiting conversion of temp to tunneled HD catheter by IR; will f/u tomorrow; will also f/u with vasc surgery regarding AVF creation while patient is still admitted (should be done as soon as possible to decrease the time patient stays with HD catheter);
--- NOTE | 2019-01-06 13:44 | CP.PCM.PN ---
Subjective - Date & Time of Evaluation Date of Evaluation: 01/06/19 Time of Evaluation: 11:00 - Subjective Subjective: No fevers, comfortable. Objective - Vital Signs/Intake and Output Vital Signs (last 24 hours): Temp Pulse Resp BP Pulse Ox 98 F 72 19 170/76 H 98 01/05/19 08:20 01/05/19 11:59 01/05/19 08:20 01/05/19 11:59 01/05/19 08:20 Intake and Output: 01/05/19 01/05/19 06:59 18:59 Intake Total 240 Output Total 1000 Balance -760 - Medications Medications: Current Medications Albuterol/Ipratropium (Duoneb 3 Mg/0.5 Mg (3 Ml) Ud) 3 ml IH [id number] [facility] Last Admin: 01/05/19 13:38 Dose: Not Given Albuterol/Ipratropium (Duoneb 3 Mg/0.5 Mg (3 Ml) Ud) 3 ml IH RQ2 PRN PRN Reason: Shortness of Breath Amlodipine Besylate (Norvasc) 10 mg PO DAILY [facility] Last Admin: 01/05/19 12:02 Dose: Not Given Arformoterol Tartrate (Brovana) 15 mcg IH [id number] [facility] Last Admin: 01/05/19 08:40 Dose: Not Given Atorvastatin Calcium (Lipitor) 40 mg PO DAILY [facility] Last Admin: 01/05/19 12:02 Dose: Not Given Budesonide (Pulmicort Respules) 0.5 mg IH [id number] [facility] Last Admin: 01/05/19 08:40 Dose: Not Given Carvedilol (Coreg) 25 mg PO Q12H [facility] Last Admin: 01/05/19 05:53 Dose: 25 mg Clonidine HCl (Catapres Tts1 0.1 Mg/24 Hr) 1 patch TD QWK [facility] Last Admin: 12/31/18 11:01 Dose: 1 patch Dextrose (Dextrose 50% Inj) 0 ml IV STAT PRN; Protocol PRN Reason: Hypoglycemia Protocol Ergocalciferol (Drisdol 50,000 Intl Units Cap) 1 cap PO Q7D [facility] Last Admin: 01/03/19 10:31 Dose: 1 cap Glimepiride (Amaryl) 1 mg PO DAILY [facility] Last Admin: 02/18/19 11:59 Dose: Not Given Heparin Sodium (Porcine) (Heparin) 5,000 units SC Q8 [facility]; Protocol Last Admin: 01/05/19 15:00 Dose: 5,000 units Hydralazine HCl (Apresoline) 10 mg IVP Q6 PRN PRN Reason: Systolic Blood Pressure Last Admin: 12/27/18 06:48 Dose: 10 mg Hydralazine HCl (Apresoline) 100 mg PO Q8H [facility] Last Admin: 01/05/19 11:59 Dose: 100 mg Dextrose (Dextrose 5% In Water 1000 Ml) 1,000 mls @ 0 mls/hr IV .Q0M PRN; Prot ocol PRN Reason: Hypoglycemia Protocol Insulin Detemir (Levemir) 5 unit SC HS [facility] Last Admin: 01/04/19 21:50 Dose: 5 units Insulin Human Regular (Humulin R Med) 0 units SC ACHS [facility]; Protocol Last Admin: 01/05/19 12:01 Dose: Not Given Insulin Human Regular (Humulin R) 6 units SC AC [facility] Last Admin: 01/05/19 12:01 Dose: 6 units Losartan Potassium (Cozaar) 25 mg PO DAILY [facility] Last Admin: 01/05/19 12:00 Dose: Not Given Pantoprazole Sodium (Protonix Ec Tab) 40 mg PO 0600 [facility] Last Admin: 01/05/19 05:52 Dose: 40 mg Patiromer (Veltassa) 8.4 gm PO DAILY [facility] Last Admin: 01/03/19 22:20 Dose: 8.4 gm Prednisone (Prednisone Tab) 20 mg PO DAILY [facility] Sevelamer HCl (Renagel) 800 mg PO [facility] Last Admin: 01/05/19 12:03 Dose: 800 mg Torsemide (Demadex) 20 mg PO DAILY [facility] Last Admin: 01/05/19 12:00 Dose: Not Given - Labs Labs: 01/05/19 06:20 01/05/19 06:20 PT 13.4 SECONDS (9.4-12.5) H 12/23/18 10:56 INR 1.19 12/23/18 10:56 APTT 35.0 Seconds (26.9-38.3) 12/23/18 10:56 - Constitutional Appears: Chronically Ill - Respiratory Exam Respiratory Exam: Decreased Breath Sounds - Cardiovascular Exam Cardiovascular Exam: +S1, +S2 - GI/Abdominal Exam GI & Abdominal Exam: Soft. absent: Tenderness Assessment and Plan - Assessment and Plan (Free Text) Plan: Asssessment S/P systemic inflammatory response syndrome, consider sepsis due to UTI with Group B Strep and ESBL E. coli - persistent leukocytosis R/O other source of infection but probably from steroid use history of right pyelonephritis with ESBL E. 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 Evangelista previously
--- NOTE | 2019-01-06 15:29 | CP.PCM.PN ---
<Marcelo Cole - Last Filed: 01/06/19 15:23> Subjective - Date & Time of Evaluation Date of Evaluation: 01/06/19 Time of Evaluation: 08:00 - Subjective Subjective: Marcelo Cole PGY1 Medicine Progress Note for Dr. Evangelista Patient was seen and examined at bedside this morning. Vital signs stable. [place] car checker was used at bedside. She denies cp, sob, n/v/d, abdominal pain. No adverse overnight events. R-IJ is in place. Patient is AAOx3, no change in mental status. A full 12 point ROS was conducted and unremarkable except as stated above. Objective - Vital Signs/Intake and Output Vital Signs (last 24 hours): Temp Pulse Resp BP Pulse Ox 98.2 F 63 20 151/62 H 98 01/06/19 07:53 01/06/19 12:26 01/06/19 07:53 01/06/19 12:26 01/06/19 07:53 Intake and Output: 01/06/19 01/06/19 06:59 18:59 Output Total 700 Balance -700 - Medications Medications: Current Medications Acetaminophen (Tylenol 325mg Tab) 650 mg PO Q6H PRN PRN Reason: Pain, moderate (4-7) Last Admin: 01/05/19 16:13 Dose: 650 mg Albuterol/Ipratropium (Duoneb 3 Mg/0.5 Mg (3 Ml) Ud) 3 ml IH [id number] [facility] Last Admin: 01/06/19 12:01 Dose: 3 ml Albuterol/Ipratropium (Duoneb 3 Mg/0.5 Mg (3 Ml) Ud) 3 ml IH RQ2 PRN PRN Reason: Shortness of Breath Amlodipine Besylate (Norvasc) 10 mg PO DAILY [facility] Last Admin: 01/06/19 11:00 Dose: 10 mg Arformoterol Tartrate (Brovana) 15 mcg IH [id number] [facility] Last Admin: 01/06/19 08:29 Dose: 15 mcg Atorvastatin Calcium (Lipitor) 40 mg PO DAILY [facility] Last Admin: 01/06/19 11:00 Dose: 40 mg Budesonide (Pulmicort Respules) 0.5 mg IH [id number] [facility] Last Admin: 01/06/19 08:39 Dose: 0.5 mg Carvedilol (Coreg) 25 mg PO Q12H [facility] Last Admin: 01/06/19 06:12 Dose: 25 mg Clonidine HCl (Catapres Tts1 0.1 Mg/24 Hr) 1 patch TD QWK [facility] Last Admin: 12/31/18 11:01 Dose: 1 patch Dextrose (Dextrose 50% Inj) 0 ml IV STAT PRN; Protocol PRN Reason: Hypoglycemia Protocol Ergocalciferol (Drisdol 50,000 Intl Units Cap) 1 cap PO Q7D [facility] Last Admin: 01/03/19 10:31 Dose: 1 cap Glimepiride (Amaryl) 1 mg PO DAILY [facility] Last Admin: 01/06/19 10:59 Dose: 1 mg Heparin Sodium (Porcine) (Heparin) 5,000 units SC Q8 [facility]; Protocol Last Admin: 01/06/19 05:26 Dose: 5,000 units Hydralazine HCl (Apresoline) 10 mg IVP Q6 PRN PRN Reason: Systolic Blood Pressure Last Admin: 12/27/18 06:48 Dose: 10 mg Hydralazine HCl (Apresoline) 100 mg PO Q8H [facility] Last Admin: 01/06/19 12:26 Dose: 100 mg Dextrose (Dextrose 5% In Water 1000 Ml) 1,000 mls @ 0 mls/hr IV .Q0M PRN; Protocol PRN Reason: Hypoglycemia Protocol Insulin Detemir (Levemir) 5 unit SC HS [facility] Last Admin: 01/05/19 23:10 Dose: 5 units Insulin Human Regular (Humulin R Med) 0 units SC ACHS [facility]; Protocol Last Admin: 01/06/19 12:27 Dose: 1 units Insulin Human Regular (Humulin R) 6 units SC AC [facility] Last Admin: 01/06/19 12:28 Dose: 6 units Losartan Potassium (Cozaar) 50 mg PO DAILY [facility] Last Admin: 01/06/19 10:59 Dose: 50 mg Pantoprazole Sodium (Protonix Ec Tab) 40 mg PO 0600 [facility] Last Admin: 01/06/19 06:13 Dose: 40 mg Patiromer (Veltassa) 8.4 gm PO DAILY [facility] Last Admin: 01/03/19 22:20 Dose: 8.4 gm Prednisone (Prednisone Tab) 20 mg PO DAILY [facility] Last Admin: 01/06/19 11:00 Dose: 20 mg Sevelamer HCl (Renagel) 800 mg PO WM [facility] Last Admin: 01/06/19 12:27 Dose: 800 mg Torsemide (Demadex) 20 mg PO BID TL - Labs Labs: 01/06/19 06:20 01/06/19 06:20 PT 13.4 SECONDS (9.4-12.5) H 12/23/18 10:56 INR 1.19 12/23/18 10:56 APTT 35.0 Seconds (26.9-38.3) 12/23/18 10:56 - Constitutional Appears: No Acute Distress - Head Exam Head Exam: ATRAUMATIC, NORMAL INSPECTION, NORMOCEPHALIC - Eye Exam Eye Exam: EOMI, Normal appearance - ENT Exam ENT Exam: Mucous Membranes Moist - Neck Exam Additional comments: R-IJ trialysis catheter is in place. - Respiratory Exam Respiratory Exam: Clear to Ausculation Bilateral, NORMAL BREATHING PATTERN. absent: Rales, Rhonchi, Wheezing, Respiratory Distress - Cardiovascular Exam Cardiovascular Exam: RRR, +S1, +S2 - GI/Abdominal Exam GI & Abdominal Exam: Soft, Normal Bowel Sounds. absent: Tenderness - Extremities Exam Extremities Exam: Full ROM, Normal Capillary Refill, Tenderness (mild tenderness to palpation of lower ext. ). absent: Pedal Edema Additional comments: +1 pitting edema bilateral lower ext. - Neurological Exam Neurological Exam: Alert, Awake, Oriented x3 - Psychiatric Exam Psychiatric exam: Normal Affect, Normal Mood - Skin Skin Exam: Dry, Intact, Normal Color, Warm Assessment and Plan - Assessment and Plan (Free Text) Assessment: Patient is a 68 y/o [place] speaking F with PMHx of CKD, DM2, HTN, HLD, anemia who presented to ED for change in mental status, lethargy and weakness. Admitted for toxic metabolic encephalopathy 2/2 ESBL UTI which has now resolved. Also found to have HTN 2/2 CKD, shortness of breath 2/2 undiagnosed asthma and is now ESRD on HD. Plan: ESRD - on HD - pending permacath placement via IR - last HD session on 01/05 - s/p temporary trialysis catheter at the R-IJ (01/03) - BUN/Cr downtrending - continue home renvela and ergocalciferol - c/w torsemide - IR is on consult (Dr. Valverde) for permacath placement. - Nephro following (Dr. Santiago). Recs appreciated. HTN 2/2 CKD - Blood pressure continues to remain elevated - c/w amlodipine 10mg PO daily, carvedilol 25mg PO q12, hydralazine 100mg PO q8, and clonidine - Medications adjusted as per nephrology (Dr. Santiago) Shortness of Breath 2/2 Undiagnosed Asthma - resolved - Leukocytosis 2/2 steroids - resolved - c/w prednisone 20mg PO daily - c/w pulmicort, brovana, duonebs, torsemide - Pulm on consult (Dr. Morton). Recs were appreciated. Patient needs outpatient PFT evaluation. Hyperkalemia - resolved - improved with HD sessions - continue to monitor K level Toxic Metabolic Encephalopathy 2/2 ESBL UTI - resolved - Repeat UA is negative for UTI (01/04) - Repeat blood cx are negative x3 (prelim) - completed IV antibiotic course with merrem for 10 days. - ID is on consult (Dr. Quiros). Recs appreciated. Anemia of CKD - Hgb stable - c/w IV iron - Hgb was 7.8 on admission, s/p x2 pRBC total during hospital course - Heme (Dr. Vernon) on consult. Recs appreciated. - GI (Dr. Narayan) on consult. Recs appreciated. DM2 - Continue glimepiride - ISS (med) - Accuchecks HLD - continue atorvastatin DVT/GI PPx: heparin sc/protonix Diet: Renal Diet Dispo: Continue to monitor patient on the floor. Pending permacath placement by IR. Case was discussed and reviewed with Attending Physician, Dr. Evangelista. <Geovanni Evangelista - Last Filed: 01/06/19 16:30> Objective - Vital Signs/Intake and Output Vital Signs (last 24 hours): Temp Pulse Resp BP Pulse Ox 98.2 F 63 20 151/62 H 98 01/06/19 07:53 01/06/19 12:26 01/06/19 07:53 01/06/19 12:26 01/06/19 07:53 Intake and Output: 01/06/19 01/06/19 06:59 18:59 Output Total 700 Balance -700 - Medications Medications: Current Medications Acetaminophen (Tylenol 325mg Tab) 650 mg PO Q6H PRN PRN Reason: Pain, moderate (4-7) Last Admin: 01/05/19 16:13 Dose: 650 mg Albuterol/Ipratropium (Duoneb 3 Mg/0.5 Mg (3 Ml) Ud) 3 ml IH [id number] [facility] Last Admin: 01/06/19 12:01 Dose: 3 ml Albuterol/Ipratropium (Duoneb 3 Mg/0.5 Mg (3 Ml) Ud) 3 ml IH RQ2 PRN PRN Reason: Shortness of Breath Amlodipine Besylate (Norvasc) 10 mg PO DAILY [facility] Last Admin: 01/06/19 11:00 Dose: 10 mg Arformoterol Tartrate (Brovana) 15 mcg IH [id number] [facility] Last Admin: 01/06/19 08:29 Dose: 15 mcg Atorvastatin Calcium (Lipitor) 40 mg PO DAILY [facility] Last Admin: 01/06/19 11:00 Dose: 40 mg Budesonide (Pulmicort Respules) 0.5 mg IH [id number] [facility] Last Admin: 01/06/19 08:39 Dose: 0.5 mg Carvedilol (Coreg) 25 mg PO Q12H [facility] Last Admin: 01/06/19 06:12 Dose: 25 mg Clonidine HCl (Catapres Tts1 0.1 Mg/24 Hr) 1 patch TD QWK [facility] Last Admin: 12/31/18 11:01 Dose: 1 patch Dextrose (Dextrose 50% Inj) 0 ml IV STAT PRN; Protocol PRN Reason: Hypoglycemia Protocol Ergocalciferol (Drisdol 50,000 Intl Units Cap) 1 cap PO Q7D [facility] Last Admin: 01/03/19 10:31 Dose: 1 cap Glimepiride (Amaryl) 1 mg PO DAILY [facility] Last Admin: 01/06/19 10:59 Dose: 1 mg Heparin Sodium (Porcine) (Heparin) 5,000 units SC Q8 [facility]; Protocol Last Admin: 01/06/19 05:26 Dose: 5,000 units Hydralazine HCl (Apresoline) 10 mg IVP Q6 PRN PRN Reason: Systolic Blood Pressure Last Admin: 12/27/18 06:48 Dose: 10 mg Hydralazine HCl (Apresoline) 100 mg PO Q8H [facility] Last Admin: 01/06/19 12:26 Dose: 100 mg Dextrose (Dextrose 5% In Water 1000 Ml) 1,000 mls @ 0 mls/hr IV .Q0M PRN; Pro tocol PRN Reason: Hypoglycemia Protocol Insulin Detemir (Levemir) 5 unit SC HS [facility] Last Admin: 01/05/19 23:10 Dose: 5 units Insulin Human Regular (Humulin R Med) 0 units SC ACHS [facility]; Protocol Last Admin: 01/06/19 12:27 Dose: 1 units Insulin Human Regular (Humulin R) 6 units SC AC [facility] Last Admin: 01/06/19 12:28 Dose: 6 units Losartan Potassium (Cozaar) 50 mg PO DAILY [facility] Last Admin: 01/06/19 10:59 Dose: 50 mg Pantoprazole Sodium (Protonix Ec Tab) 40 mg PO 0600 [facility] Last Admin: 01/06/19 06:13 Dose: 40 mg Patiromer (Veltassa) 8.4 gm PO DAILY [facility] Last Admin: 01/03/19 22:20 Dose: 8.4 gm Prednisone (Prednisone Tab) 20 mg PO DAILY [facility] Last Admin: 01/06/19 11:00 Dose: 20 mg Sevelamer HCl (Renagel) 800 mg PO WM [facility] Last Admin: 01/06/19 12:27 Dose: 800 mg Torsemide (Demadex) 20 mg PO BID [facility] - Labs Labs: 01/06/19 06:20 01/06/19 06:20 PT 13.4 SECONDS (9.4-12.5) H 12/23/18 10:56 INR 1.19 12/23/18 10:56 APTT 35.0 Seconds (26.9-38.3) 12/23/18 10:56 Attending/Attestation - Attestation I have personally seen and examined this patient.: Yes I have fully participated in the care of the patient.: Yes I have reviewed all pertinent clinical information, including history, physical exam and plan: Yes Notes (Text): 01/06/19 16:27 Attending note; Patient seen and examined with resident. s/p dialysis yesterday. Clinically afebrile and nontoxic. tolerating diet well. leg swelling is improving. Patient is a 68-year-old female with past medical history significant for chronic kidney disease, type 2 diabetes, hypertension, hyperlipidemia, and anemia that presented to the emergency room for change in mental status, lethargy, and weakness. 1. ESRD requiring dialysis. S/P dialysis yesterday. Next dialysis tomorrow. S/P right internal jugular HD access. Message left with Dr. Valverde's office for tunnel catheter placement. 2. Dyspnea. resolving. Chest xray showed no active disease. Continue nebulizer treatments. Continue to taper po prednisone. Continue pulmicort and Brovana. Pulmonary evalaution appreciated. Will need outpatient PFTs. Chest CT showed no acute findings; stable pulmonary parenchymal findings including scarring/postoperative changes right lung; chronic interstitial lung disease, mosaic pattern; no suspicious pulmonary nodules, masses, or infiltrates. V/Q scan low probability for pulmonary embolism. 3. UTI. Urine culture positive for ESBL and Beta hemolytic Strep Group B. Resolved. S/P treatment with Merrem. ID following, recommendations appreciated. Patient afebrile and no leukocytosis. Blood cultures with no growth. 4. Toxic metabolic encephalopathy. Likey secondary to UTI. Resolved. Head CT showed no acute intracranial pathology identified. Brain MRI showed no acute intracranial findings. Continue supportive care. 5. Essential hypertension. Continue Norvasc, Coreg, Clonidine patch, hydralazine, and torsemide. 6. DM2. Continue insulin sliding scale, Continue amaryl. Continue humulin R AC. Continue levemir. 7. Hyperlipidemia. Continue Lipitor. 8. Anemia of chronic disease. s/p 2 unit Prbc transfusion. S/P IV iron. H&H stable, continue to monitor. Weekly Aranesp. 9. GI/DVT prophylaxis. Protonix/heparin Plan for permacath placement. telephonic case manager assisting to get outpatient dialysis unit placement. Upon discharge the patient will follow up with PMD DR. Chandra.
[2019-01-06] MEDS: Insulin Detemir 100 units/ml Vial (Levemir) SC SCH (22:14)
[2019-01-07] MEDS: Albuterol-Ipratrop 3 mg / 0.5 (3 ml) UD IH SCH ×4 (02:37→20:11)
[2019-01-07] MEDS: Pantoprazole 40 mg EC Tab PO SCH (05:21)
[2019-01-07] MEDS: Insulin Regular 1 UNITS/0.01 ML ML SC SCH ×3 (07:56→17:59)
[2019-01-07] MEDS: Insulin Reg-MEDIUM-Coverage SC SCH ×4 (08:06→22:33)
[2019-01-07 08:09] LABS: HEMOGLOBIN 10.7 g/dL (12.0-16.0); MEAN CELL VOLUME 94.5 fl (80.0-105.0); MEAN CORPUSCULAR HEMOGLOBIN 31.2 pg (25.0-35.0); MEAN PLATELET VOLUME 10.5 fl (7.0-11.0); RBC 3.43 10^6/uL (3.5-6.1); RED CELL DISTRIBUTION WIDTH 16.7 % (11.5-14.5); WHITE BLOOD COUNT 9.8 10^3/uL (4.5-11.0)
[2019-01-07 08:21] LABS: ALB/GLOB RATIO 0.9 (1.1-1.8); ALBUMIN 2.4 g/dL (3.0-4.8); CALCIUM 7.6 mg/dL (8.4-10.5)
[2019-01-07] MEDS: Arformoterol 15 mcg/2 ml Inh Sol IH SCH ×2 (09:10→20:10)
[2019-01-07] MEDS: Budesonide 0.5 mg/2 ml Inhal Susp UD IH SCH ×2 (09:10→20:11)
--- NOTE | 2019-01-07 15:23 | CP.PCM.PN ---
<Marcelo Cole - Last Filed: 01/07/19 15:12> Subjective - Date & Time of Evaluation Date of Evaluation: 01/07/19 Time of Evaluation: 08:00 - Subjective Subjective: Marcelo Cole, PGY1 Medicine Progress Note for Dr. Evangelista Patient was seen and examined at bedside this morning. Vital signs stable. Romansh language instructor was used at bedside. She denies cp, sob, n/v/d, abdominal pain. No adverse overnight events. R-IJ is in place; patient receiving HD during time of interview. Patient is AAOx3, no change in mental status. She is pending permacath placement later in the afternoon at 4 pm. A full 12 point ROS was conducted and unremarkable except as stated above. Objective - Vital Signs/Intake and Output Vital Signs (last 24 hours): Temp Pulse Resp BP Pulse Ox 97.8 F 65 20 155/103 H 98 01/07/19 08:06 01/07/19 12:41 01/07/19 08:06 01/07/19 12:41 01/07/19 08:06 Intake and Output: 01/07/19 01/07/19 06:59 18:59 Intake Total 240 Output Total 1000 Balance -760 - Medications Medications: Current Medications Acetaminophen (Tylenol 325mg Tab) 650 mg PO Q6H PRN PRN Reason: Pain, moderate (4-7) Last Admin: 01/05/19 16:13 Dose: 650 mg Albuterol/Ipratropium (Duoneb 3 Mg/0.5 Mg (3 Ml) Ud) 3 ml IH [id number] [facility] Last Admin: 01/07/19 13:50 Dose: 3 ml Albuterol/Ipratropium (Duoneb 3 Mg/0.5 Mg (3 Ml) Ud) 3 ml IH RQ2 PRN PRN Reason: Shortness of Breath Amlodipine Besylate (Norvasc) 10 mg PO DAILY [facility] Last Admin: 01/07/19 11:28 Dose: Not Given Arformoterol Tartrate (Brovana) 15 mcg IH [id number] [facility] Last Admin: 01/07/19 09:10 Dose: Not Given Atorvastatin Calcium (Lipitor) 40 mg PO DAILY [facility] Last Admin: 01/07/19 11:28 Dose: Not Given Budesonide (Pulmicort Respules) 0.5 mg IH [id number] [facility] Last Admin: 01/07/19 09:10 Dose: Not Given Carvedilol (Coreg) 25 mg PO Q12H [facility] Last Admin: 01/07/19 06:30 Dose: 25 mg Clonidine HCl (Catapres Tts1 0.1 Mg/24 Hr) 1 patch TD QWK [facility] Last Admin: 01/07/19 11:28 Dose: Not Given Dextrose (Dextrose 50% Inj) 0 ml IV STAT PRN; Protocol PRN Reason: Hypoglycemia Protocol Ergocalciferol (Drisdol 50,000 Intl Units Cap) 1 cap PO Q7D [facility] Last Admin: 01/03/19 10:31 Dose: 1 cap Glimepiride (Amaryl) 1 mg PO DAILY [facility] Last Admin: 01/07/19 11:27 Dose: Not Given Heparin Sodium (Porcine) (Heparin) 5,000 units SC Q8 [facility]; Protocol Last Admin: 01/07/19 14:09 Dose: Not Given Hydralazine HCl (Apresoline) 10 mg IVP Q6 PRN PRN Reason: Systolic Blood Pressure Last Admin: 12/27/18 06:48 Dose: 10 mg Hydralazine HCl (Apresoline) 100 mg PO Q8H [facility] Last Admin: 01/07/19 12:41 Dose: 100 mg Dextrose (Dextrose 5% In Water 1000 Ml) 1,000 mls @ 0 mls/hr IV .Q0M PRN; Protocol PRN Reason: Hypoglycemia Protocol Insulin Detemir (Levemir) 5 unit SC HS [facility] Last Admin: 01/06/19 22:14 Dose: 5 units Insulin Human Regular (Humulin R Med) 0 units SC ACHS [facility]; Protocol Last Admin: 01/07/19 12:03 Dose: Not Given Insulin Human Regular (Humulin R) 6 units SC AC [facility] Last Admin: 01/07/19 12:31 Dose: 6 units Losartan Potassium (Cozaar) 50 mg PO DAILY [facility] Last Admin: 01/07/19 11:28 Dose: Not Given Pantoprazole Sodium (Protonix Ec Tab) 40 mg PO 0600 [facility] Last Admin: 01/07/19 05:21 Dose: 40 mg Patiromer (Veltassa) 8.4 gm PO DAILY [facility] Last Admin: 01/03/19 22:20 Dose: 8.4 gm Sevelamer HCl (Renagel) 800 mg PO WM [facility] Last Admin: 01/07/19 12:30 Dose: 800 mg Torsemide (Demadex) 20 mg PO BID [facility] Last Admin: 01/07/19 11:28 Dose: Not Given - Labs Labs: 01/07/19 06:30 01/07/19 06:30 PT 13.4 SECONDS (9.4-12.5) H 12/23/18 10:56 INR 1.19 12/23/18 10:56 APTT 35.0 Seconds (26.9-38.3) 12/23/18 10:56 - Constitutional Appears: No Acute Distress - Head Exam Head Exam: ATRAUMATIC, NORMAL INSPECTION, NORMOCEPHALIC - Eye Exam Eye Exam: EOMI, Normal appearance - ENT Exam ENT Exam: Mucous Membranes Moist - Neck Exam Additional comments: R-IJ trialysis catheter is in place. - Respiratory Exam Respiratory Exam: Clear to Ausculation Bilateral, NORMAL BREATHING PATTERN. absent: Rales, Rhonchi, Wheezing, Respiratory Distress - Cardiovascular Exam Cardiovascular Exam: RRR, +S1, +S2 - GI/Abdominal Exam GI & Abdominal Exam: Soft, Normal Bowel Sounds. absent: Tenderness - Extremities Exam Extremities Exam: Full ROM, Normal Capillary Refill, Tenderness (mild tenderness to palpation of lower ext. ). absent: Pedal Edema Additional comments: +1 pitting edema bilateral lower ext. - Neurological Exam Neurological Exam: Alert, Awake, Oriented x3 - Psychiatric Exam Psychiatric exam: Normal Affect, Normal Mood - Skin Skin Exam: Dry, Intact, Normal Color, Warm Assessment and Plan - Assessment and Plan (Free Text) Assessment: Patient is a 68 y/o Romansh speaking F with PMHx of CKD, DM2, HTN, HLD, anemia who presented to ED for change in mental status, lethargy and weakness. Admitted for toxic metabolic encephalopathy 2/2 ESBL UTI which has now resolved. Also found to have HTN 2/2 CKD, shortness of breath 2/2 undiagnosed asthma and is now ESRD on HD. Plan: ESRD - on HD - pending permacath placement via IR today - scheduled for 4 pm - will plan to remove PICC line and trialysis catheter to avoid any possible catheter related infections after permacath is in place - Receiving HD today - Patient will need to c/w HD on outpatient basis - BUN/Cr downtrending - continue home renvela and ergocalciferol - c/w torsemide - IR is on consult (Dr. Valverde) for permacath placement. - Nephro following (Dr. Santiago). Recs appreciated. HTN 2/2 CKD - Blood pressure remains elevated - c/w amlodipine 10mg PO daily, carvedilol 25mg PO q12, hydralazine 100mg PO q8, and clonidine - Medications adjusted as per nephrology (Dr. Santiago) Shortness of Breath 2/2 Undiagnosed Asthma - resolved - Leukocytosis 2/2 steroids - resolved - no longer on prednisone - c/w pulmicort, brovana, duonebs, torsemide - Pulm on consult (Dr. Morton). Recs were appreciated. Patient needs outpatient PFT evaluation. Toxic Metabolic Encephalopathy 2/2 ESBL UTI - resolved - Repeat UA is negative for UTI (01/04) - Repeat blood cx are negative x3 (prelim) - completed IV antibiotic course with merrem for 10 days. - ID is on consult (Dr. Quiros). Recs appreciated. Anemia of CKD - Hgb stable - c/w IV iron - Hgb was 7.8 on admission, s/p x2 pRBC total during hospital course - Heme (Dr. Vernon) on consult. Recs appreciated. - GI (Dr. Narayan) on consult. Recs appreciated. DM2 - Continue glimepiride - ISS (med) - Accuchecks HLD - continue atorvastatin DVT/GI PPx: heparin sc/protonix Diet: Renal Diet Dispo: Continue to monitor patient on the floor. Pending permacath placement by IR today at 4 pm. Anticipate discharge once permacath is placed. Case was discussed and reviewed with Attending Physician, Dr. Evangelista. <Geovanni Evangelista - Last Filed: 01/07/19 18:14> Objective - Vital Signs/Intake and Output Vital Signs (last 24 hours): Temp Pulse Resp BP Pulse Ox 97.4 F L 65 20 138/52 L 97 01/07/19 17:17 01/07/19 17:17 01/07/19 17:17 01/07/19 17:17 01/07/19 17:17 Intake and Output: 01/07/19 01/07/19 06:59 18:59 Intake Total 240 Output Total 1000 Balance -760 - Medications Medications: Current Medications Acetaminophen (Tylenol 325mg Tab) 650 mg PO Q6H PRN PRN Reason: Pain, moderate (4-7) Last Admin: 01/05/19 16:13 Dose: 650 mg Albuterol/Ipratropium (Duoneb 3 Mg/0.5 Mg (3 Ml) Ud) 3 ml IH [id number] Last Admin: 01/07/19 13:50 Dose: 3 ml Albuterol/Ipratropium (Duoneb 3 Mg/0.5 Mg (3 Ml) Ud) 3 ml IH RQ2 PRN PRN Reason: Shortness of Breath Amlodipine Besylate (Norvasc) 10 mg PO DAILY [facility] Last Admin: 01/07/19 11:28 Dose: Not Given Arformoterol Tartrate (Brovana) 15 mcg IH [id number] [facility] Last Admin: 01/07/19 09:10 Dose: Not Given Budesonide (Pulmicort Respules) 0.5 mg IH [id number] [facility] Last Admin: 01/07/19 09:10 Dose: Not Given Carvedilol (Coreg) 25 mg PO Q12H [facility] Last Admin: 01/07/19 06:30 Dose: 25 mg Clonidine HCl (Catapres Tts1 0.1 Mg/24 Hr) 1 patch TD QWK [facility] Last Admin: 01/07/19 11:28 Dose: Not Given Dextrose (Dextrose 50% Inj) 0 ml IV STAT PRN; Protocol PRN Reason: Hypoglycemia Protocol Ergocalciferol (Drisdol 50,000 Intl Units Cap) 1 cap PO Q7D [facility] Last Admin: 01/03/19 10:31 Dose: 1 cap Glimepiride (Amaryl) 1 mg PO DAILY [facility] Last Admin: 01/07/19 11:27 Dose: Not Given Heparin Sodium (Porcine) (Heparin) 5,000 units SC Q8 [facility]; Protocol Last Admin: 01/07/19 14:09 Dose: Not Given Hydralazine HCl (Apresoline) 10 mg IVP Q6 PRN PRN Reason: Systolic Blood Pressure Last Admin: 12/27/18 06:48 Dose: 10 mg Hydralazine HCl (Apresoline) 100 mg PO Q8H [facility] Last Admin: 01/07/19 12:41 Dose: 100 mg Dextrose (Dextrose 5% In Water 1000 Ml) 1,000 mls @ 0 mls/hr IV .Q0M PRN; Protocol PRN Reason: Hypoglycemia Protocol Insulin Detemir (Levemir) 5 unit SC HS [facility] Last Admin: 01/06/19 22:14 Dose: 5 units Insulin Human Regular (Humulin R Med) 0 units SC ACHS [facility]; Protocol Last Admin: 01/07/19 17:58 Dose: 1 units Insulin Human Regular (Humulin R) 6 units SC AC [facility] Last Admin: 01/07/19 17:59 Dose: 6 units Losartan Potassium (Cozaar) 50 mg PO DAILY [facility] Last Admin: 01/07/19 11:28 Dose: Not Given Pantoprazole Sodium (Protonix Ec Tab) 40 mg PO 0600 [facility] Last Admin: 01/07/19 05:21 Dose: 40 mg Patiromer (Veltassa) 8.4 gm PO DAILY [facility] Last Admin: 01/03/19 22:20 Dose: 8.4 gm Sevelamer HCl (Renagel) 800 mg PO WM [facility] Last Admin: 01/07/19 17:57 Dose: 800 mg Torsemide (Demadex) 20 mg PO BID [facility] Last Admin: 01/07/19 17:58 Dose: 20 mg - Labs Labs: 01/07/19 06:30 01/07/19 06:30 PT 13.4 SECONDS (9.4-12.5) H 12/23/18 10:56 INR 1.19 12/23/18 10:56 APTT 35.0 Seconds (26.9-38.3) 12/23/18 10:56 Attending/Attestation - Attestation I have personally seen and examined this patient.: Yes I have fully participated in the care of the patient.: Yes I have reviewed all pertinent clinical information, including history, physical exam and plan: Yes Notes (Text): 01/07/19 18:10 Attending note; Patient seen and examined with resident. s/p dialysis today. tolerating HD well now. Clinically afebrile and nontoxic. tolerating diet well. leg swelling is improving. Patient is a 68-year-old female with past medical history significant for chronic kidney disease, type 2 diabetes, hypertension, hyperlipidemia, and anemia that presented to the emergency room for change in mental status, lethargy, and weakness. 1. ESRD requiring dialysis. S/P dialysis today. Pending tunnelled HD catheter placement by Dr. Valverde. 2. Dyspnea. resolved. Chest xray showed no active disease. Continue nebulizer treatments. Continue to taper po prednisone. Continue pulmicort and Brovana. Pulmonary evalaution appreciated. Will need outpatient PFTs. Chest CT showed no acute findings; stable pulmonary parenchymal findings including scarring/postoperative changes right lung; chronic interstitial lung disease, mosaic pattern; no suspicious pulmonary nodules, masses, or infiltrates. V/Q scan low probability for pulmonary embolism. 3. UTI. Urine culture positive for ESBL and Beta hemolytic Strep Group B. Resolved. S/P treatment with Merrem. ID following, recommendations appreciated. Patient afebrile and no leukocytosis. Blood cultures with no growth. 4. Toxic metabolic encephalopathy. Likey secondary to UTI. Resolved. Head CT showed no acute intracranial pathology identified. Brain MRI showed no acute intracranial findings. Continue supportive care. 5. Essential hypertension. Continue Norvasc, Coreg, Clonidine patch, hydralazi ne, and torsemide. 6. DM2. Continue insulin sliding scale, Continue amaryl. Continue humulin R AC. Continue levemir. 7. Hyperlipidemia. Continue Lipitor. 8. Anemia of chronic disease. s/p 2 unit Prbc transfusion. S/P IV iron. H&H stable, continue to monitor. Weekly Aranesp. 9. GI/DVT prophylaxis. Protonix/heparin PT evaluation appreciated. SCOTT recommended. Plan for permacath placement. rn case mgr assisting to get outpatient dialysis unit placement. Upon discharge the patient will follow up with PMD DR. Chandra.
--- NOTE | 2019-01-07 17:23 | CP.PCM.PN ---
Subjective - Date & Time of Evaluation Date of Evaluation: 01/07/19 Time of Evaluation: 10:25 - Subjective Subjective: Afebrile, comfortable. Objective - Vital Signs/Intake and Output Vital Signs (last 24 hours): Temp Pulse Resp BP Pulse Ox 98.2 F 63 20 151/62 H 98 01/06/19 07:53 01/06/19 12:26 01/06/19 07:53 01/06/19 12:26 01/06/19 07:53 Intake and Output: 01/06/19 01/06/19 06:59 18:59 Output Total 700 Balance -700 - Medications Medications: Current Medications Acetaminophen (Tylenol 325mg Tab) 650 mg PO Q6H PRN PRN Reason: Pain, moderate (4-7) Last Admin: 01/05/19 16:13 Dose: 650 mg Albuterol/Ipratropium (Duoneb 3 Mg/0.5 Mg (3 Ml) Ud) 3 ml IH [id number] [facility] Last Admin: 01/06/19 08:29 Dose: 3 ml Albuterol/Ipratropium (Duoneb 3 Mg/0.5 Mg (3 Ml) Ud) 3 ml IH RQ2 PRN PRN Reason: Shortness of Breath Amlodipine Besylate (Norvasc) 10 mg PO DAILY [facility] Last Admin: 01/06/19 11:00 Dose: 10 mg Arformoterol Tartrate (Brovana) 15 mcg IH [id number] [facility] Last Admin: 01/06/19 08:29 Dose: 15 mcg Atorvastatin Calcium (Lipitor) 40 mg PO DAILY [facility] Last Admin: 01/06/19 11:00 Dose: 40 mg Budesonide (Pulmicort Respules) 0.5 mg IH [id number] [facility] Last Admin: 01/06/19 08:39 Dose: 0.5 mg Carvedilol (Coreg) 25 mg PO Q12H [facility] Last Admin: 01/06/19 06:12 Dose: 25 mg Clonidine HCl (Catapres Tts1 0.1 Mg/24 Hr) 1 patch TD QWK [facility] Last Admin: 12/31/18 11:01 Dose: 1 patch Dextrose (Dextrose 50% Inj) 0 ml IV STAT PRN; Protocol PRN Reason: Hypoglycemia Protocol Ergocalciferol (Drisdol 50,000 Intl Units Cap) 1 cap PO Q7D [facility] Last Admin: 01/03/19 10:31 Dose: 1 cap Glimepiride (Amaryl) 1 mg PO DAILY [facility] Last Admin: 01/06/19 10:59 Dose: 1 mg Heparin Sodium (Porcine) (Heparin) 5,000 units SC Q8 [facility]; Protocol Last Admin: 01/06/19 05:26 Dose: 5,000 units Hydralazine HCl (Apresoline) 10 mg IVP Q6 PRN PRN Reason: Systolic Blood Pressure Last Admin: 12/27/18 06:48 Dose: 10 mg Hydralazine HCl (Apresoline) 100 mg PO Q8H [facility] Last Admin: 01/06/19 12:26 Dose: 100 mg Dextrose (Dextrose 5% In Water 1000 Ml) 1,000 mls @ 0 mls/hr IV .Q0M PRN; Protocol PRN Reason: Hypoglycemia Protocol Insulin Detemir (Levemir) 5 unit SC HS [facility] Last Admin: 01/05/19 23:10 Dose: 5 units Insulin Human Regular (Humulin R Med) 0 units SC ACHS [facility]; Protocol Last Admin: 01/06/19 12:27 Dose: 1 units Insulin Human Regular (Humulin R) 6 units SC AC [facility] Last Admin: 01/06/19 12:28 Dose: 6 units Losartan Potassium (Cozaar) 50 mg PO DAILY [facility] Last Admin: 01/06/19 10:59 Dose: 50 mg Pantoprazole Sodium (Protonix Ec Tab) 40 mg PO 0600 [facility] Last Admin: 01/06/19 06:13 Dose: 40 mg Patiromer (Veltassa) 8.4 gm PO DAILY [facility] Last Admin: 01/03/19 22:20 Dose: 8.4 gm Prednisone (Prednisone Tab) 20 mg PO DAILY [facility] Last Admin: 01/06/19 11:00 Dose: 20 mg Sevelamer HCl (Renagel) 800 mg PO WM [facility] Last Admin: 01/06/19 12:27 Dose: 800 mg Torsemide (Demadex) 20 mg PO BID [facility] - Labs Labs: 01/06/19 06:20 01/06/19 06:20 PT 13.4 SECONDS (9.4-12.5) H 12/23/18 10:56 INR 1.19 12/23/18 10:56 APTT 35.0 Seconds (26.9-38.3) 12/23/18 10:56 - Constitutional Appears: Chronically Ill - Head Exam Head Exam: NORMAL INSPECTION - Respiratory Exam Respiratory Exam: Decreased Breath Sounds - Cardiovascular Exam Cardiovascular Exam: +S1, +S2 - GI/Abdominal Exam GI & Abdominal Exam: Soft. absent: Tenderness Assessment and Plan - Assessment and Plan (Free Text) Plan: Asssessment S/P systemic inflammatory response syndrome, consider sepsis due to UTI with Group B Strep and ESBL E. coli - leukocytosis probably from steroid use, no evidence of new infection history of right pyelonephritis with ESBL E. coli acute renal failure history of herpes zoster on the left chest and shoulder areas history of sepsis secondary to left otomastoiditis history of Methicillin-resistant coagulase negative staph and Enterococci bacteremia HTN DM obesity with BMI 30 chronic renal failure Plan completed course of Merrem, WBC count now has normalized - repeat blood and urine cx are negative and will continue to monitor off antibiotics CXR shows atelectasis follow up further plans of Renal
--- NOTE | 2019-01-07 21:27 | CP.PCM.PN ---
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, with nephrotic syndrome, admitted with E coli ESBL UTI, now ESRD on HD; Patient seen on HD, receiving first full treatment today; denies any dyspnea; Objective - Vital Signs/Intake and Output Vital Signs (last 24 hours): Temp Pulse Resp BP Pulse Ox 97.4 F L 65 20 138/52 L 97 01/07/19 17:17 01/07/19 18:09 01/07/19 17:17 01/07/19 18:09 01/07/19 17:17 Intake and Output: 01/07/19 01/08/19 18:59 06:59 Intake Total 640 Balance 640 - Medications Medications: Current Medications Acetaminophen (Tylenol 325mg Tab) 650 mg PO Q6H PRN PRN Reason: Pain, moderate (4-7) Last Admin: 01/05/19 16:13 Dose: 650 mg Albuterol/Ipratropium (Duoneb 3 Mg/0.5 Mg (3 Ml) Ud) 3 ml IH [id number] [facility] Last Admin: 01/07/19 20:11 Dose: 3 ml Albuterol/Ipratropium (Duoneb 3 Mg/0.5 Mg (3 Ml) Ud) 3 ml IH RQ2 PRN PRN Reason: Shortness of Breath Amlodipine Besylate (Norvasc) 10 mg PO DAILY [facility] Last Admin: 01/07/19 11:28 Dose: Not Given Arformoterol Tartrate (Brovana) 15 mcg IH [id number] [facility] Last Admin: 01/07/19 20:10 Dose: 15 mcg Budesonide (Pulmicort Respules) 0.5 mg IH [id number] [facility] Last Admin: 01/07/19 20:11 Dose: 0.5 mg Carvedilol (Coreg) 25 mg PO Q12H [facility] Last Admin: 01/07/19 18:09 Dose: 25 mg Clonidine HCl (Catapres Tts1 0.1 Mg/24 Hr) 1 patch TD QWK [facility] Last Admin: 01/07/19 11:28 Dose: Not Given Dextrose (Dextrose 50% Inj) 0 ml IV STAT PRN; Protocol PRN Reason: Hypoglycemia Protocol Ergocalciferol (Drisdol 50,000 Intl Units Cap) 1 cap PO Q7D [facility] Last Admin: 01/03/19 10:31 Dose: 1 cap Glimepiride (Amaryl) 1 mg PO DAILY [facility] Last Admin: 01/07/19 11:27 Dose: Not Given Heparin Sodium (Porcine) (Heparin) 5,000 units SC Q8 [facility]; Protocol Last Admin: 01/07/19 14:09 Dose: Not Given Hydralazine HCl (Apresoline) 10 mg IVP Q6 PRN PRN Reason: Systolic Blood Pressure Last Admin: 12/27/18 06:48 Dose: 10 mg Hydralazine HCl (Apresoline) 100 mg PO Q8H [facility] Last Admin: 01/07/19 12:41 Dose: 100 mg Dextrose (Dextrose 5% In Water 1000 Ml) 1,000 mls @ 0 mls/hr IV .Q0M PRN; Protocol PRN Reason: Hypoglycemia Protocol Insulin Detemir (Levemir) 5 unit SC HS [facility] Last Admin: 01/06/19 22:14 Dose: 5 units Insulin Human Regular (Humulin R Med) 0 units SC ACHS [facility]; Protocol Last Admin: 01/07/19 17:58 Dose: 1 units Insulin Human Regular (Humulin R) 6 units SC AC [facility] Last Admin: 01/07/19 17:59 Dose: 6 units Losartan Potassium (Cozaar) 50 mg PO DAILY [facility] Last Admin: 01/07/19 11:28 Dose: Not Given Pantoprazole Sodium (Protonix Ec Tab) 40 mg PO 0600 [facility] Last Admin: 01/07/19 05:21 Dose: 40 mg Patiromer (Veltassa) 8.4 gm PO DAILY [facility] Last Admin: 01/03/19 22:20 Dose: 8.4 gm Sevelamer HCl (Renagel) 800 mg PO WM [facility] Last Admin: 01/07/19 17:57 Dose: 800 mg Torsemide (Demadex) 20 mg PO BID [facility] Last Admin: 01/07/19 17:58 Dose: 20 mg - Labs Labs: 01/07/19 06:30 01/07/19 06:30 PT 13.4 SECONDS (9.4-12.5) H 12/23/18 10:56 INR 1.19 12/23/18 10:56 APTT 35.0 Seconds (26.9-38.3) 12/23/18 10:56 - Constitutional Appears: Non-toxic, No Acute Distress - Eye Exam Eye Exam: Normal appearance - Respiratory Exam Respiratory Exam: absent: Respiratory Distress Additional comments: exp wheezes present; - Cardiovascular Exam Cardiovascular Exam: RRR, +S1, +S2 - GI/Abdominal Exam GI & Abdominal Exam: Soft. absent: Distended, Tenderness - Extremities Exam Additional comments: 2+ b/l lower leg edema; - Neurological Exam Neurological Exam: Alert, Awake - Psychiatric Exam Psychiatric exam: absent: Agitated - Skin Skin Exam: Warm. absent: Cyanosis Assessment and Plan (1) ESRD on hemodialysis Assessment & Plan: 3rd HD today, first full treatment with high blood flow and 2L UF goal; solomon ated well; stable electrolyte status; still with volume excess but avoiding sudden drops of BP that come with aggressive UF on HD; Otherwise, outpatient HD already setup on d/c; -Next HD for Saturday if still admitted; -Awaiting IR for conversion of temp to tunneled HD cath; -Awaiting vasc surgery for possible AVF creation during this admission (would be ideal); -Avoid nephrotoxic agents to preserve residual renal function; Status: Chronic (2) Hypertensive CKD, ESRD on dialysis Assessment & Plan: BP better controlled after more aggressive UF today; med doses already increased, continue same; Status: Chronic (3) Hyperkalemia Status: Chronic (4) Nephrotic syndrome Status: Chronic (5) Anemia Assessment & Plan: Hgb at goal (10-11g) s/p aranesp and prbc transfusion; will re-dose aranesp as needed; Status: Chronic (6) Chronic kidney disease-mineral and bone disorder Assessment & Plan: Continue sevalmer 1 tab w/ meals; no need for calcitriol yet (will wait until PTH > 200); Status: Chronic
[2019-01-07] MEDS: Insulin Detemir 100 units/ml Vial (Levemir) SC SCH (22:38)
[2019-01-08] MEDS: Albuterol-Ipratrop 3 mg / 0.5 (3 ml) UD IH SCH ×4 (02:15→19:26)
[2019-01-08 06:38] LABS: HEMOGLOBIN 10.4 g/dL (12.0-16.0); MEAN CELL VOLUME 95.2 fl (80.0-105.0); MEAN CORPUSCULAR HEMOGLOBIN 31.3 pg (25.0-35.0); MEAN CORPUSCULAR HGB CONC 32.9 g/dl (31.0-37.0); MEAN PLATELET VOLUME 10.1 fl (7.0-11.0); RBC 3.32 10^6/uL (3.5-6.1); RED CELL DISTRIBUTION WIDTH 17.1 % (11.5-14.5); WHITE BLOOD COUNT 8.9 10^3/uL (4.5-11.0)
[2019-01-08] MEDS: Pantoprazole 40 mg EC Tab PO SCH (06:50)
[2019-01-08 07:13] LABS: ALB/GLOB RATIO 0.9 (1.1-1.8); ALBUMIN 2.4 g/dL (3.0-4.8); CALCIUM 7.6 mg/dL (8.4-10.5)
[2019-01-08] MEDS: Arformoterol 15 mcg/2 ml Inh Sol IH SCH ×2 (08:10→19:26)
[2019-01-08] MEDS: Budesonide 0.5 mg/2 ml Inhal Susp UD IH SCH ×2 (08:10→19:26)
[2019-01-08] MEDS: Insulin Regular 1 UNITS/0.01 ML ML SC SCH ×3 (09:23→17:31)
[2019-01-08] MEDS: Insulin Reg-MEDIUM-Coverage SC SCH ×3 (09:24→17:38)
[2019-01-08] MEDS ORDERED: Lidocaine 2% Inj (20ml) ONE (12:01)
[2019-01-08] MEDS ORDERED: Midazolam 2 MG/2 ML VIAL ONE (13:13)
[2019-01-08 17:27] VITALS: BP 142/50; PULSE 67; RESP 20; TEMP 97.6; O2SAT 94
--- NOTE | 2019-01-08 19:06 | CP.PCM.DIS ---
Provider - Provider Date of Admission: 12/23/18 13:00 Attending physician: Geovanni Evangelista MD Consults: 12/23/18 11:24 Stroke Team Consult Stat Comment: [facility] Consulting Provider: Neurohospitalist Consulting Physician: NEUROHOSP Neurohospitalist for Consult: Rob Becker Neurohospitalist for Consult: Juan Jose Trujillo Reason for Consult: ams 12/23/18 14:59 Nephrology Consult Routine Comment: Consulting Provider: Darron Santiago Consulting Physician: Darron Santiago Reason for Consult: JOSUE +/- CKD, reports poss renal bx 1 month ago 12/24/18 07:23 Consult [Physician Consult] Routine Comment: Consulting Provider: Corinne Lovelace Consulting Physician: Corinne Lovelace Reason for Consult: anemia 12/24/18 10:33 Infectious Disease Consult Routine Comment: Consulting Provider: Dane Quiros Consulting Physician: Dane Quiros Reason for Consult: UTI/hx of resistant e.coli/ESBL 12/25/18 09:43 Gastroenterology Consult Routine Comment: Consulting Provider: Megan Narayan V Consulting Physician: Megan Narayan V Reason for Consult: +FOBT, anemia, hx of ?tumor removal 12/25/18 11:40 Vascular Surgery Routine Comment: Consulting Provider: Emil Grossman Physician Instructions: Reason For Exam: AVF creation 12/28/18 11:03 Physician Consult Routine Comment: Consulting Provider: Cullen Valverde Consulting Physician: Cullen Valverde Reason for Consult: PICC line need for IV Abx; PICC team was not able to get access 12/30/18 09:58 Consult [Physician Consult] Routine Comment: Consulting Provider: Woo Morton Consulting Physician: Woo Morton Reason for Consult: interstitial lung disease 01/04/19 12:04 Radiology Consult Routine Comment: convert temp to tunneled HD cath Consulting Provider: Cullen Valverde Consulting Physician: Cullen Valverde Reason for Consult: convert temp to tunneled HD cath Time Spent in preparation of Discharge (in minutes): 35 Hospital Course - Lab Results Lab Results: Micro Results 01/03/19 10:30 Blood-Venous Blood Culture - Final NO GROWTH AFTER 5 DAYS 01/03/19 10:30 Blood-Venous Gram Stain - Final TEST NOT PERFORMED 01/03/19 10:15 Blood-Venous Blood Culture - Final NO GROWTH AFTER 5 DAYS 01/03/19 10:15 Blood-Venous Gram Stain - Final TEST NOT PERFORMED 01/05/19 08:15 Blood-During Dialysis Blood Culture - Preliminary NO GROWTH AFTER 3 DAYS 01/04/19 06:00 Urine,Random Urine Culture - Final No Growth (<1,000 CFU/ML) 12/23/18 12:00 Blood Blood Culture - Final NO GROWTH AFTER 5 DAYS 12/23/18 12:00 Blood Gram Stain - Final TEST NOT PERFORMED 12/23/18 12:00 Blood Blood Culture - Final NO GROWTH AFTER 5 DAYS 12/23/18 12:00 Blood Gram Stain - Final TEST NOT PERFORMED 12/23/18 13:00 Urine,Clean Catch Urine Culture - Final Escherichia Coli Beta Hemolytic Strep Group B Most Recent Lab Values WBC 8.9 10^3/uL (4.5-11.0) 01/08/19 06:00 RBC 3.32 10^6/uL (3.5-6.1) L 01/08/19 06:00 Hgb 10.4 g/dL (12.0-16.0) L 01/08/19 06:00 Hct 31.6 % (36.0-48.0) L 01/08/19 06:00 MCV 95.2 fl (80.0-105.0) 01/08/19 06:00 MCH 31.3 pg (25.0-35.0) 01/08/19 06:00 MCHC 32.9 g/dl (31.0-37.0) 01/08/19 06:00 RDW 17.1 % (11.5-14.5) H 01/08/19 06:00 Plt Count 211 10^3/uL (120.0-450.0) 01/08/19 06:00 MPV 10.1 fl (7.0-11.0) 01/08/19 06:00 Neut % (Auto) 67.1 % (50.0-68.0) 12/29/18 11:00 Lymph % (Auto) 22.0 % (22.0-35.0) 12/29/18 11:00 Douglas % (Auto) 9.4 % (1.0-6.0) H 12/29/18 11:00 Eos % (Auto) 1.3 % (1.5-5.0) L 12/29/18 11:00 Baso % (Auto) 0.2 % (0.0-3.0) 12/29/18 11:00 Lymph # (Auto) 1.9 (1.2-3.4) 12/29/18 11:00 Douglas # (Auto) 0.8 (0.1-0.6) H 12/29/18 11:00 Eos # (Auto) 0.1 (0.0-0.7) 12/29/18 11:00 Baso # (Auto) 0.02 K/mm3 (0.0-2.0) 12/29/18 11:00 Absolute Neuts (auto) 5.87 (1.4-6.5) 12/29/18 11:00 PT 13.4 SECONDS (9.4-12.5) H 12/23/18 10:56 INR 1.19 12/23/18 10:56 APTT 35.0 Seconds (26.9-38.3) 12/23/18 10:56 D-Dimer, Quantitative 516 ng/mlDDU (0-243) H 12/29/18 12:05 pO2 35 mm/Hg (30-55) 12/23/18 11:10 VBG pH 7.38 (7.32-7.43) 12/23/18 11:10 VBG pCO2 41.0 (40-60) 12/23/18 11:10 VBG HCO3 24.3 mmol/l (21-28) 12/23/18 11:10 VBG Total CO2 25.6 mmol.L (22-28) 12/23/18 11:10 VBG O2 Sat (Calc) 75.9 % (40-65) H 12/23/18 11:10 VBG Base Excess -0.8 mmol/L (0.0-2.0) L 12/23/18 11:10 VBG Potassium 5.0 mmol/L (3.6-5.2) 12/23/18 11:10 Sodium 141.0 mmol/L (132-148) 12/23/18 11:10 Chloride 114.0 mmol/L (98-107) H 12/23/18 11:10 Glucose 107 mg/dl (65-105) H 12/23/18 11:10 Lactate 0.8 mmol/L (0.7-2.1) 12/23/18 11:10 FiO2 21.0 % 12/23/18 11:10 Sodium 134 mmol/L (132-148) 01/08/19 06:00 Potassium 4.0 mmol/L (3.6-5.0) 01/08/19 06:00 Chloride 104 mmol/L (98-107) 01/08/19 06:00 Carbon Dioxide 26 mmol/L (21-33) 01/08/19 06:00 Anion Gap 8 (10-20) L 01/08/19 06:00 BUN 36 mg/dL (7-21) H 01/08/19 06:00 Creatinine 2.2 mg/dl (0.7-1.2) H 01/08/19 06:00 Est GFR ( Amer) 27 01/08/19 06:00 Est GFR (Non-Af Amer) 22 01/08/19 06:00 POC Glucose (mg/dL) 182 mg/dL (65-110) H 01/08/19 15:43 Random Glucose 98 mg/dL (70-110) 01/08/19 06:00 Hemoglobin A1c 5.9 % (4.2-6.5) 12/23/18 16:50 Calcium 7.6 mg/dL (8.4-10.5) L 01/08/19 06:00 Phosphorus 5.5 mg/dL (2.5-4.5) H 01/05/19 06:20 Magnesium 1.9 mg/dL (1.7-2.2) 01/05/19 06:20 Iron 285 ug/dL (45-180) H 12/25/18 10:30 TIBC 214 ug/dL (265-497) L 12/25/18 10:30 % Saturation 133 % (20-55) H 12/25/18 10:30 Ferritin 291.0 ng/mL 12/25/18 10:30 Total Bilirubin 0.2 mg/dL (0.2-1.3) 01/08/19 06:00 AST 26 U/L (14-36) 01/08/19 06:00 ALT 24 U/L (7-56) 01/08/19 06:00 Alkaline Phosphatase 160 U/L (38-126) H 01/08/19 06:00 Lactate Dehydrogenase 824 U/L (333-699) H 12/23/18 10:56 Total Creatine Kinase 137 U/L (35-230) 12/23/18 10:56 Troponin I 0.02 ng/mL D 12/23/18 10:56 NT-Pro-B Natriuret Pep 2770 pg/mL (0-450) H 12/27/18 10:30 Total Protein 5.0 g/dL (5.8-8.3) L 01/08/19 06:00 Total Protein (PEP) 5.2 g/dL (6.1-8.1) L 12/24/18 08:50 Albumin 2.4 g/dL (3.0-4.8) L 01/08/19 06:00 Albumin (PEP) 2.3 g/dL (3.8-4.8) L 12/24/18 08:50 Globulin 2.6 gm/dL 01/08/19 06:00 Albumin/Globulin Ratio 0.9 (1.1-1.8) L 01/08/19 06:00 Lrjff-8-Iqzykbzii 10.5 % 12/28/18 14:30 Qizei-7-Coddwgcig 9.6 % 12/28/18 14:30 Beta Globulins 15.1 % 12/28/18 14:30 Rhna-0-Jbcwckkv 0.4 g/dL (0.4-0.6) 12/24/18 08:50 Xyda-1-Arlaypmr 0.4 g/dL (0.2-0.5) 12/24/18 08:50 Gamma Globulins 17.4 % 12/28/18 14:30 Abnorm Protein Band 1 TEST NOT PERFORMED 12/24/18 08:50 Abnorm Protein Band 2 TEST NOT PERFORMED 12/24/18 08:50 Abnorm Protein Band 3 TEST NOT PERFORMED 12/24/18 08:50 Triglycerides 114 mg/dL (35-160) 12/24/18 08:50 Cholesterol 136 mg/dL (130-200) 12/24/18 08:50 LDL Cholesterol Direct 46 mg/dL (0-129) 12/24/18 08:50 HDL Cholesterol 49 mg/dL (29-60) 12/24/18 08:50 Vitamin B12 559 pg/mL (239-931) 12/25/18 10:30 25-OH Vitamin D Total < 12.8 NG/ML (30.0-100.0) L 12/24/18 08:50 Folate 7.6 ng/mL 12/25/18 10:30 Procalcitonin 5.79 NG/ML (0.19-0.49) H 12/23/18 16:50 TSH 3rd Generation 0.97 mIU/mL (0.46-4.68) 12/23/18 13:20 Calcium (PTH Intact) 8.0 mg/dL (8.6-10.4) L 12/24/18 08:50 PTH w/Ion &Tot Calcium 113 pg/mL (14-64) H 12/24/18 08:50 Venous Blood Potassium 5.0 mmol/L (3.6-5.2) 12/23/18 11:10 Urine Color Light yellow (YELLOW) 01/04/19 06:00 Urine Appearance Clear (CLEAR) 01/04/19 06:00 Urine pH 6.0 (4.7-8.0) 01/04/19 06:00 Ur Specific [place] 1.020 (1.005-1.035) 01/04/19 06:00 Urine Protein >=300 mg/dL (<30 mg/dL) H 01/04/19 06:00 Urine Glucose (UA) 500 mg/dL (NEGATIVE) H 01/04/19 06:00 Urine Ketones Negative mg/dL (NEGATIVE) 01/04/19 06:00 Urine Blood Trace-lysed (NEGATIVE) H 01/04/19 06:00 Urine Nitrate Negative (NEGATIVE) 01/04/19 06:00 Urine Bilirubin Negative (NEGATIVE) 01/04/19 06:00 Urine Urobilinogen 0.2 E.U./dL (<1 E.U./dL) 01/04/19 06:00 Ur Leukocyte Esterase Trace Martin/uL (NEGATIVE) H 01/04/19 06:00 Urine RBC 0 - 2 /hpf (0-2) 01/04/19 06:00 Urine WBC 2 - 5 /hpf (0-6) 01/04/19 06:00 Ur Epithelial Cells 3 - 4 /hpf (0-5) 01/04/19 06:00 Amorphous Sediment Few /hpf (NONE) 12/23/18 12:40 Urine Bacteria Few /hpf (NONE) 01/04/19 06:00 Urine Other Uyeast /hpf 01/04/19 06:00 Urine Collection Time 24 hours 12/28/18 14:30 Urine Total Volume 2000 mL (800-1400) H 12/28/18 14:30 Ur 24 Hour Volume 2.0 liters 12/28/18 14:30 Urine Creatinine See above result 12/28/18 14:30 Ur Creatinine 24 Hour 0.64 g/24 h (0.50-2.15) 12/28/18 14:30 Creatinine Clearance 12.0 ml/min (80-120) L 12/28/18 14:30 Ur Total Protein 24 Hr 6780 mg/24 h (<150) H 12/28/18 14:30 Protein/Creat Ratio 24h 06491 mg/g creat (< OR = 114) H 12/28/18 14:30 Urine Total Protein TEST NOT PERFORMED 12/28/18 14:30 Urine Albumin (PEP) 47.4 % 12/28/18 14:30 Ur Protein Fractions See note 12/28/18 14:30 Stool Occult Blood Positive (NEGATIVE) H 12/25/18 08:00 Salicylates < 1 mg/dL (2.0-20.0) L 12/23/18 11:30 Urine Opiates Screen Negative (NEGATIVE) 12/27/18 01:44 Urine Methadone Screen Negative (NEGATIVE) 12/27/18 01:44 Ur Barbiturates Screen Negative (NEGATIVE) 12/27/18 01:44 Ur Phencyclidine Scrn Negative (NEGATIVE) 12/27/18 01:44 Ur Amphetamines Screen Negative (NEGATIVE) 12/27/18 01:44 U Benzodiazepines Scrn Negative (NEGATIVE) 12/27/18 01:44 U Oth Cocaine Metabols Negative (NEGATIVE) 12/27/18 01:44 U Cannabinoids Screen Negative (NEGATIVE) 12/27/18 01:44 ROBER & SPEP Interp See note 12/24/18 08:50 Serum Immunofixation Detected 12/24/18 08:50 [place]/Lambda Light Chain (()) 12/24/18 08:50 Free [place] Light Chains 87.0 mg/L (3.3-19.4) H 12/24/18 08:50 Free [place]ambda Light Chain 82.0 mg/L (5.7-26.3) H 12/24/18 08:50 Free [place]/Lambda Ratio 1.06 (0.26-1.65) 12/24/18 08:50 Hep Bs Antigen Negative (NEGATIVE) 01/05/19 08:15 Hep Bs Antibody Negative (NEGATIVE) 01/05/19 08:58 Hep B Core IgM Ab Negative (NEGATIVE) 01/05/19 08:15 Blood Type O POSITIVE 12/30/18 08:00 Blood Type Confirm O POSITIVE 12/23/18 16:50 Antibody Screen Negative 12/30/18 08:00 Crossmatch See Detail 12/30/18 08:00 BBK History Checked Patient has bt 12/30/18 08:00 - Hospital Course Hospital Course: Marcelo Cole, PGY1 Discharge Summary for Dr. Evangelista Patient is a 68 y/o yi speaking F with PMHx of CKD, DM2, HTN, HLD, anemia who presented to the ED on 12/23 for altered mental status, lethargy, and weakness. Head CT was negative for stroke. Medical team evaluated patient. Workup for sepsis was done on admission. She was given IV antibiotics as empiric treatment. She was found to have a UTI on UA. Neurology was consulted for her toxic metabolic encephalopathy. She also had JOSUE on CKD. Nephrology was consu lted for worsening of renal function. Patient also had anemia on admission, likely due to chronic disease. Patient had a recent renal biopsy at [facility] indicating the presence of advanced diabetic nephropathy. During hospital course, patient's altered mental status resolved. Urine Cx came back positive for ESBL and she was treated appropriately with full course of merrem IV antibiotics while on contact precautions. Given that she was a difficult IV access, a PICC line was placed. During her stay, patient also noted to have wheezing on lung exam. Pulmonology was consulted and believed it was undiagnosed asthma. UTI eventually resolved. Given her anemia of chronic disease, GI was consulted but did not recommend any urgent endoscopic work up. However, kidney function was not improving. Swelling in her lungs were contributed to her poor renal function. Given her worsening CKD, hyperkalemia, and uremia, patient was deemed a candidate for hemodialysis. Nephro diagnosed patient as ESRD. During hospital course, patient was hesitant about starting HD. Extensive discussion with patient and family in regards to the importance of dialysis was explained. Eventually, R-IJ trialysis catheter was temporarily placed and patient was started on HD. She tolerated the sessions well and renal function started to improve. Wheezing and shortness of breath improved with steroids and HD sessions. IR was consulted and she had successful placement of permcath. Patient explained that she will need to follow up with surgery as outpatient for permanent dialysis access. Upon reviewing all labs, imaging, and vitals, patient is hemodynamically stable for discharge to home. Her BP medications were adjusted appropriately by nephrology and she was educated on renal diet. Patient's medications were called in to her pharmacy. She will need to follow up with PMD, Surgery, Patient Safety Tech, Burlapper, and Plant Operations Vice President as outpatient. Please refer to patient's chart for additional information. Discharge Exam - Head Exam Head Exam: NORMAL INSPECTION - Eye Exam Eye Exam: EOMI, Normal appearance - ENT Exam ENT Exam: Mucous Membranes Moist - Neck Exam Additional comments: Permacath catheter is in place. - Respiratory Exam Respiratory Exam: Clear to PA & Lateral, NORMAL BREATHING PATTERN. absent: Accessory Muscle Use, Chest Wall Tenderness, Rales, Rhonchi, Wheezes - Cardiovascular Exam Cardiovascular Exam: RRR, +S1, +S2 - GI/Abdominal Exam GI & Abdominal Exam: Normal Bowel Sounds, Soft. absent: Firm, Guarding, Rebound, Rigid - Extremities Exam Extremities exam: full ROM, normal capillary refill, normal inspection, pedal pulses present - Back Exam Back exam: NORMAL INSPECTION - Neurological Exam Neurological exam: Alert, CN II-XII Intact, Oriented x3 - Psychiatric Exam Psychiatric exam: Normal Affect, Normal Mood - Skin Skin Exam: Dry, Intact, Normal Color, Warm Discharge Plan - Discharge Medications Prescriptions: amLODIPine [Norvasc] 10 mg PO DAILY #14 tab Arformoterol [Brovana] 15 mcg IH [id number] #28 neb Atorvastatin [Lipitor] 40 mg PO DAILY #14 tab Budesonide [Pulmicort Respules] 0.5 mg IH [id number] #28 neb Carvedilol [Coreg] 25 mg PO Q12H #28 tab Clonidine [Catapres-Tts 1] 1 each TD QWK #2 patch.tdwk Ergocalciferol [Drisdol 50,000 Intl Units Cap] 1 cap PO Q7D #2 cap Fenofibrate [Fenoglide] 60 mg PO DAILY #14 tablet Ferrous Sulfate [Feosol] 325 mg PO DAILY #14 tab Gabapentin [Neurontin] 100 mg PO BID #28 cap Glimepiride [amaRYL] 2 mg PO DAILY #14 tab hydrALAZINE [Apresoline] 100 mg PO Q8H #42 tab Insulin Regular [HumuLIN R] 6 units SC AC 14 Days ml Insulin Detemir [Levemir] 5 unit SC HS 14 Days unit Losartan/Hydrochlorothiazide [Losartan-Hctz 50-12.5 mg Tab] 1 each PO DAILY #14 tablet Sevelamer Carbonate [Renvela] 800 mg PO TID #42 tab Torsemide [Demadex] 20 mg PO BID #28 tab - Follow Up Plan Condition: STABLE Disposition: HOME/ ROUTINE Instructions: Dialysis Diet , High Blood Pressure (DC), Hemodialysis (DC), Arteriovenous Fistula for Dialysis (DC), Preparing for Hemodialysis, End Stage Kidney Disease (DC), Dialysis Catheter (DC), Dialysis and Diet Additional Instructions: - please follow up with your PMD Dr. Epstein within 1 week - please follow up with surgery Dr. Grossman within 1 week to schedule permanent dialysis access; his contact information is included, so please call to make an appointment - You will have to follow left arm precautions (no IV in that arm to preserve it for future dialysis) - You will need outpatient Pulmonology follow up for Pulmonary Function Testing for possible undiagnosed asthma, as well as Endocrinology follow-up for enlarged thyroid; please make these appointments with your PMD - Included in your packet is a list of foods you can eat and foods to avoid while you're on dialysis; in general, avoid large amounts of water, potassium or sodium in your diet. Please refer to packet for full list. - Please continue your medications as prescribed on the medication reconciliation list - If your symptoms worsen please return to the nearest Emergency Department Referrals: Cornelius Epstein MD [Medical Doctor] - Emil Grossman MD [Staff Provider] - Darron Santiago MD [Staff Provider] -
--- NOTE | 2019-01-08 19:07 | VASCULAR ---
PROCEDURE: Ultrasound and fluoroscopic tunneled right IJ dialysis catheter. CLINICAL HISTORY: ESRD PHYSICIAN(S): Cullen Valverde M.D. TECHNIQUE: The relative risks and indications for the procedure were explained to the patient and informed written consent obtained. The patient was placed supine on the arteriography table and the right neck/chest was prepped and draped in the usual sterile fashion. 1% Xylocaine was used to anesthetize the skin and soft tissues at the puncture site. Conscious sedation and monitoring were provided throughout the procedure by a nurse. Under direct ultrasound guidance, the rightinternal jugular vein was punctured with a micropuncture set. A 0.035 Glidewire was advanced into the IVC. Sequential dilatation was performed with subsequent placement of a 28cmNext gen catheter with its tip in the right atrium. A retrograde tunnel below the right clavicle was performed. The catheter was trimmed and the hub attached. Both ports aspirate and inject easily. The catheter was secured and a dressing applied. The patient tolerated the procedure well. IMPRESSION: 1. Ultrasound and fluoroscopically placed right IJ tunneled dialysis catheter.
--- NOTE | 2019-01-08 20:20 | CP.PCM.PN ---
Subjective - Date & Time of Evaluation Date of Evaluation: 01/08/19 Time of Evaluation: 20:20 - Subjective Subjective: Nephrology progress note - Camille PGY - 2 Patient seen and examined at bedside. No acute overnight events. Patient denies any complaints, and states she is eating well and tolderating HD. Objective - Vital Signs/Intake and Output Vital Signs (last 24 hours): Temp Pulse Resp BP Pulse Ox 97.6 F 67 20 142/50 L 94 L 01/08/19 17:26 01/08/19 17:26 01/08/19 17:26 01/08/19 17:26 01/08/19 17:26 - Medications Medications: Current Medications Acetaminophen (Tylenol 325mg Tab) 650 mg PO Q6H PRN PRN Reason: Pain, moderate (4-7) Last Admin: 01/05/19 16:13 Dose: 650 mg Albuterol/Ipratropium (Duoneb 3 Mg/0.5 Mg (3 Ml) Ud) 3 ml IH [id number] [facility] Last Admin: 01/08/19 19:26 Dose: Not Given Albuterol/Ipratropium (Duoneb 3 Mg/0.5 Mg (3 Ml) Ud) 3 ml IH RQ2 PRN PRN Reason: Shortness of Breath Arformoterol Tartrate (Brovana) 15 mcg IH [id number] [facility] Last Admin: 01/08/19 19:26 Dose: Not Given Budesonide (Pulmicort Respules) 0.5 mg IH [id number] [facility] Last Admin: 01/08/19 19:26 Dose: Not Given Carvedilol (Coreg) 25 mg PO Q12H [facility] Last Admin: 01/08/19 06:50 Dose: 25 mg Clonidine HCl (Catapres Tts1 0.1 Mg/24 Hr) 1 patch TD QWK [facility] Last Admin: 01/07/19 11:28 Dose: Not Given Ergocalciferol (Drisdol 50,000 Intl Units Cap) 1 cap PO Q7D [facility] Last Admin: 01/03/19 10:31 Dose: 1 cap Glimepiride (Amaryl) 1 mg PO DAILY [facility] Last Admin: 01/08/19 09:29 Dose: 1 mg Heparin Sodium (Porcine) (Heparin) 5,000 units SC Q8 [facility]; Protocol Last Admin: 01/08/19 15:25 Dose: 5,000 units Hydralazine HCl (Apresoline) 10 mg IVP Q6 PRN PRN Reason: Systolic Blood Pressure Last Admin: 12/27/18 06:48 Dose: 10 mg Hydralazine HCl (Apresoline) 100 mg PO Q8H [facility] Last Admin: 01/08/19 15:28 Dose: Not Given Insulin Detemir (Levemir) 5 unit SC HS [facility] Last Admin: 01/07/19 22:38 Dose: 5 units Insulin Human Regular (Humulin R Med) 0 units SC ACHS [facility]; Protocol Last Admin: 01/08/19 17:38 Dose: 1 units Insulin Human Regular (Humulin R) 6 units SC AC [facility] Last Admin: 01/08/19 17:31 Dose: 6 units Losartan Potassium (Cozaar) 50 mg PO DAILY [facility] Last Admin: 01/08/19 09:30 Dose: 50 mg Ondansetron HCl (Zofran Inj) 4 mg IVP Q6H PRN PRN Reason: Nausea/Vomiting Pantoprazole Sodium (Protonix Ec Tab) 40 mg PO 0600 [facility] Last Admin: 01/08/19 06:50 Dose: 40 mg Patiromer (Veltassa) 8.4 gm PO DAILY [facility] Last Admin: 01/03/19 22:20 Dose: 8.4 gm Sevelamer HCl (Renagel) 800 mg PO WM [facility] Last Admin: 01/08/19 17:31 Dose: 800 mg Torsemide (Demadex) 20 mg PO BID [facility] Last Admin: 01/08/19 17:30 Dose: 20 mg - Labs Labs: 01/08/19 06:00 01/08/19 06:00 PT 13.4 SECONDS (9.4-12.5) H 12/23/18 10:56 INR 1.19 12/23/18 10:56 APTT 35.0 Seconds (26.9-38.3) 12/23/18 10:56 - Constitutional Appears: Well - Head Exam Head Exam: ATRAUMATIC, NORMAL INSPECTION, NORMOCEPHALIC - Eye Exam Eye Exam: EOMI, Normal appearance, PERRL Pupil Exam: NORMAL ACCOMODATION, PERRL - ENT Exam ENT Exam: Mucous Membranes Moist, Normal Exam - Neck Exam Neck Exam: Full ROM, Normal Inspection. absent: Lymphadenopathy - Respiratory Exam Respiratory Exam: Clear to Ausculation Bilateral, NORMAL BREATHING PATTERN - Cardiovascular Exam Cardiovascular Exam: REGULAR RHYTHM, +S1, +S2. absent: Murmur - GI/Abdominal Exam GI & Abdominal Exam: Soft, Normal Bowel Sounds. absent: Tenderness - Extremities Exam Extremities Exam: Full ROM, Normal Capillary Refill, Normal Inspection. absent: Joint Swelling, Pedal Edema - Back Exam Back Exam: NORMAL INSPECTION - Neurological Exam Neurological Exam: Alert, Awake, CN II-XII Intact, Normal Gait, Oriented x3 - Psychiatric Exam Psychiatric exam: Normal Affect, Normal Mood - Skin Skin Exam: Dry, Intact, Normal Color, Warm Assessment and Plan (1) ESRD on hemodialysis Assessment & Plan: Stable electrolyte status - Continue Torsemide - HD tomorrow - Pending HD catheter and AV Fistula placement - Avoid nephrotoxic agents Status: Chronic (2) Hypertensive CKD, ESRD on dialysis Assessment & Plan: - Continue Losartan, Norvasc, Coreg, Hydralazine and Clonidine patch Status: Chronic (3) Anemia Assessment & Plan: H/H at goal for CKD - Aranesp as needed Status: Chronic (4) Hyperkalemia Status: Chronic (5) Chronic kidney disease-mineral and bone disorder Assessment & Plan: Sevalamer with meals Status: Chronic (6) Nephrotic syndrome Assessment & Plan: Continue HD Status: Chronic
== END 2019-01-08 18:30 | disposition home health service (06) | DRG 871 ==
LOC: ED 10:28 → ERH 13:00 → 2RSO 12-24 06:01 → 3RNO 12-26 22:29
PROVIDERS: ADMIT Internal Medicine; ATTEND Internal Medicine
PROC: 30233N1 Transfusion of Nonautologous Red Blood Cells into Peripheral Vein, Percutaneous Approach (ICD-10-PCS; 2018-12-24)
PROC: 05HY33Z Insertion of Infusion Device into Upper Vein, Percutaneous Approach (ICD-10-PCS; 2018-12-27)
PROC: B54MZZA Ultrasonography of Right Upper Extremity Veins, Guidance (ICD-10-PCS; 2018-12-27)
PROC: 02HV33Z Insertion of Infusion Device into Superior Vena Cava, Percutaneous Approach (ICD-10-PCS; 2018-12-29)
PROC: B5181ZA Fluoroscopy of Superior Vena Cava using Low Osmolar Contrast, Guidance (ICD-10-PCS; 2018-12-29)
PROC: B54MZZA Ultrasonography of Right Upper Extremity Veins, Guidance (ICD-10-PCS; 2018-12-29)
PROC: 5A1D70Z Performance of Urinary Filtration, Intermittent, Less than 6 Hours Per Day (ICD-10-PCS; 2019-01-03)
PROC: 5A1D70Z Performance of Urinary Filtration, Intermittent, Less than 6 Hours Per Day (ICD-10-PCS; 2019-01-05)
PROC: 5A1D70Z Performance of Urinary Filtration, Intermittent, Less than 6 Hours Per Day (ICD-10-PCS; 2019-01-07)
PROC: 05HM33Z Insertion of Infusion Device into Right Internal Jugular Vein, Percutaneous Approach (ICD-10-PCS; principal; 2019-01-08)
PROC: B543ZZA Ultrasonography of Right Jugular Veins, Guidance (ICD-10-PCS; 2019-01-08)
DX: A41.9 Sepsis, unspecified organism (principal); G92 Toxic encephalopathy; N18.6 End stage renal disease; N17.9 Acute kidney failure, unspecified; N39.0 Urinary tract infection, site not specified; N25.81 Secondary hyperparathyroidism of renal origin; J45.901 Unspecified asthma with (acute) exacerbation; I12.0 Hypertensive chronic kidney disease with stage 5 chronic kidney disease or end stage renal disease; E87.2 Acidosis; E11.22 Type 2 diabetes mellitus with diabetic chronic kidney disease; R41.82 Altered mental status, unspecified; D63.1 Anemia in chronic kidney disease; D50.9 Iron deficiency anemia, unspecified; T50.901A Poisoning by unspecified drugs, medicaments and biological substances, accidental (unintentional), initial encounter; E87.70 Fluid overload, unspecified; Z86.73 Personal history of transient ischemic attack (TIA), and cerebral infarction without residual deficits; E11.21 Type 2 diabetes mellitus with diabetic nephropathy; J47.9 Bronchiectasis, uncomplicated; Z99.2 Dependence on renal dialysis; E87.5 Hyperkalemia; E11.65 Type 2 diabetes mellitus with hyperglycemia; B96.20 Unspecified Escherichia coli [E. coli] as the cause of diseases classified elsewhere; E78.00 Pure hypercholesterolemia, unspecified; E78.5 Hyperlipidemia, unspecified; E83.39 Other disorders of phosphorus metabolism; K59.00 Constipation, unspecified; K76.0 Fatty (change of) liver, not elsewhere classified; M89.9 Disorder of bone, unspecified; Z16.12 Extended spectrum beta lactamase (ESBL) resistance; Z78.9 Other specified health status; Z79.4 Long term (current) use of insulin; Z79.899 Other long term (current) drug therapy; Z83.3 Family history of diabetes mellitus; Z86.14 Personal history of Methicillin resistant Staphylococcus aureus infection; Z87.891 Personal history of nicotine dependence

== ENCOUNTER 2019-01-15 02:33 | Observation (INO) | payer MEDICARE, OTHER ==
[2019-01-15 02:37] VITALS: BMI 30.9
[2019-01-15 03:00] LABS: EOS # 0.1 (0.0-0.7); EOS % 1.6 % (1.5-5.0); LYMPH % 12.6 % (22.0-35.0); MEAN CELL VOLUME 94.4 fl (80.0-105.0); MEAN CORPUSCULAR HEMOGLOBIN 31.3 pg (25.0-35.0); MEAN CORPUSCULAR HGB CONC 33.2 g/dl (31.0-37.0); MEAN PLATELET VOLUME 10.2 fl (7.0-11.0); MONO # 0.7 (0.1-0.6); MONO % 9.3 % (1.0-6.0); RBC 3.19 10^6/uL (3.5-6.1); RED CELL DISTRIBUTION WIDTH 15.3 % (11.5-14.5); WHITE BLOOD COUNT 7.6 10^3/uL (4.5-11.0)
[2019-01-15] MEDS ORDERED: Dextrose 5%/0.45% NS 1,000 ML IV SCH ×2 (03:00→13:00)
--- NOTE | 2019-01-15 03:01 | ED PDOC ---
Arrival/HPI - General Chief Complaint: Altered Mental Status Time Seen by Provider: 01/15/19 02:34 Historian: EMS - History of Present Illness Narrative History of Present Illness (Text): 01/15/19 02:59 Carol Stern is a 68 year old female, whose past medical history includes hypertension, diabetes, chronic kidney disease, anemia, shingles, presents to the Emergency Department brought in by EMS for lethargy. As per family, patient has been lethargic throughtout today. Patient noted to be hypoglycemic en route to the hospital. Limited HPI and ROS secondary to patient's AMS. Symptom Onset: Gradual Symptom Course: Unchanged Activities at Onset: Light Context: Home Past Medical History - Provider Review Nursing Documentation Reviewed: Yes - Infectious Disease Hx of Infectious Diseases: None - Tetanus Immunization Tetanus Immunization: Unknown - Cardiac Hx Pacemaker: No - Pulmonary Hx Respiratory Disorders: No - Neurological Hx Neurological Disorder: No - HEENT Hx HEENT Disorder: No - Renal Hx Renal Disorder: Yes Hx Dialysis: Yes (,,Sat) - Endocrine/Metabolic Hx Diabetes Mellitus Type 2: Yes - Hematological/Oncological Hx Cancer: No - Integumentary Hx Dermatological Disorder: No - Musculoskeletal/Rheumatological Hx Falls: No - Gastrointestinal Hx Fatty Liver Disease: Yes - Genitourinary/Gynecological Hx Genitourinary Disorders: No - Psychiatric Hx Psychophysiologic Disorder: No Hx Substance Use: No - Surgical History Hx Mastectomy: No - Anesthesia Hx Anesthesia: Yes Hx Anesthesia Reactions: No Hx Malignant Hyperthermia: No - Suicidal Assessment Feels Threatened In Home Enviroment: No Family/Social History - Physician Review Nursing Documentation Reviewed: Yes Family/Social History: Unknown Family HX Smoking Status: Former Smoker Hx Alcohol Use: No Hx Substance Use: No Hx Substance Use Treatment: No Allergies/Home Meds Allergies/Adverse Reactions: Allergies No Known Allergies Allergy (Verified 12/23/18 11:46) Review of Systems - Review of Systems Systems not reviewed;Unavailable: Altered Mental Status Physical Exam Vital Signs Reviewed: Yes Vital Signs Temp Pulse Resp BP Pulse Ox 01/15/19 02:46 98.6 F 65 15 119/42 L 95 01/15/19 02:37 67 18 93 L Temperature: Afebrile Blood Pressure: Normal Pulse: Regular Respiratory Rate: Normal Mental Status: Positive for: Lethargic - Systems Exam Head: Present: Atraumatic, Normocephalic Pupils: Present: PERRL Extroacular Muscles: Present: EOMI Conjunctiva: Present: Normal Mouth: Present: Moist Mucous Membranes Neck: Present: Normal Range of Motion Respiratory/Chest: Present: Clear to Auscultation, Good Air Exchange. No: Respiratory Distress, Accessory Muscle Use Cardiovascular: Present: Regular Rate and Rhythm, Normal S1, S2. No: Murmurs Abdomen: No: Tenderness, Distention, Peritoneal Signs Back: Present: Normal Inspection Upper Extremity: Present: Normal Inspection. No: Cyanosis, Edema Lower Extremity: Present: Normal Inspection. No: Edema Neurological: Present: GCS=15, Speech Normal Skin: Present: Warm, Dry, Normal Color. No: Rashes Psychiatric: Present: Alert, Oriented x 3, Normal Insight, Normal Concentration Medical Decision Making ED Course and Treatment: Impression: 68 year old female brought in for lethargy and hypoglycemia. Plan: -- CT Head w/o contrast -- EKG -- Chest X-ray -- Labs, troponin -- Urinalysis, urine cultures -- D5W -- Reassess and disposition Prior Visits: Notes and results from previous visits were reviewed. Progress Notes: Reviewed EKG, NSR at [address]-segment elevations or depressions, no T-wave inversions, normal intervals. 01/15/19 03:57 Reviewed radiology, Chest X-ray shows no acute processes. CT Head: Mild left mastoid effusion. Interval appearance of air fluid levels in the maxillary sinuses and ethmoid air cell suggestive of acute sinusitis. Normal size of the ventricles and extra-axial spaces for the patient's age. Normal white matter tracts of the supratentorial brain. Normal basal ganglia and thalami. Normal brainstem. Normal cerebellum. There is no demonstrated extra-axial, intraparenchymal, or intraventricular hemorrhage. There are no findings of an acute ischemic infarction. Normal calvarium. There is no demonstrated fracture. Normal soft tissue structures. IMPRESSION: Normal unenhanced CT scan of the brain. Sinusitis. Acute on top of chronic. Mild left mastoid effusion. Electronically signed on Jan 15, 2019 3:56:53 AM EST by: Sigrid Torres M.D., Certified by MORENO, MSRebecca, Neuroradiology 01/15/19 03:59 Case discussed with emergency medical technician basic summons server, who is aware and agrees with plan. 01/15/19 04:[address] Oneil, who is aware and agrees with plan. Accepts pt in to hospitalist service. Pt will go to remote telemetry observation for hypoglycemia. - Lab Interpretations I have reviewed the lab results: Yes - RAD Interpretation Radiology Orders: 01/15/19 02:52 CHEST PORTABLE [RAD] Stat Rail Filler: ED Physician, Radiologist - EKG Interpretation Interpreted by ED Physician: Yes Type: 12 lead EKG - Medication Orders Current Medication Orders: Dextrose/Sodium Chloride (Dextrose 5%/0.45% Ns 1000 Ml) 1,000 mls @ 30 mls/hr IV .Q24H TL - Scribe Statement The provider has reviewed the documentation as recorded by the Nimoibleo Russell Provider Scribe Attestation: All medical record entries made by the Scribe were at my direction and personally dictated by me. I have reviewed the chart and agree that the record accurately reflects my personal performance of the history, physical exam, medical decision making, and the department course for this patient. I have also personally directed, reviewed, and agree with the discharge instructions and disposition. Disposition/Present on Arrival - Present on Arrival Any Indicators Present on Arrival: No History of DVT/PE: No History of Uncontrolled Diabetes: Yes Urinary Catheter: No History of Decub. Ulcer: No History Surgical Site Infection Following: None - Disposition Have Diagnosis and Disposition been Completed?: Yes Diagnosis: ESRD on hemodialysis, Hypoglycemia Disposition: HOSPITALIZED Disposition Time: 04:05 Patient Problems: Current Active Problems Problem Status Onset Acute encephalopathy Acute Syncope Acute Urinary tract infection Acute Condition: FAIR
[2019-01-15 03:19] LABS: TROPONIN I < 0.01 ng/mL
[2019-01-15 03:20] LABS: ALB/GLOB RATIO 0.9 (1.1-1.8); ALBUMIN 2.6 g/dL (3.0-4.8); ALT/SGPT 19 U/L (7-56); AST/SGOT 25 U/L (14-36); BLOOD UREA NITROGEN 34 mg/dL (7-21); CALCIUM 7.9 mg/dL (8.4-10.5); GFR NON-AFRICAN AMERICAN 17
--- NOTE | 2019-01-15 04:13 | CP.PCM.HP ---
<Marcelo Cole - Last Filed: 01/15/19 05:59> History of Present Illness - History of Present Illness History of Present Illness: Marcelo Cole, PGY1 Medicine H&P for Dr. Oneil cc: "lethargy x1 day duration" Patient is a 68 year old French Speaking female with PMHx ESRD on HD (//Sat), DM2, HTN, HLD, anemia who presented to the Emergency Department for lethargy for one day in duration. As per family, patient has been lethargic throughout the day. Patient was also noted to be hypoglycemic en route to the hospital. Medical team evaluated patient in the ED. Patient was recently discharged from [facility] 1 week ago on 01/08. Daughter (Shayla [phone]) provided most of the history given that patient is French speaking. Patient's last HD session was on Saturday via perma-cath. She was doing well at that time. However, it was on Saturday afternoon when she started to become more lethargic throughout the day. Patient's daughter checked her blood glucose and it was around 80, she gave the patient a snack however she was still lethargic. En route to the hospital blood sugar was in the 60s. Currently patient is AAOx3. She has bilateral lower extremity pain but this has been ongoing since her previous admission. She does not have decreased PO intake. She denies any chest pain, shortness of breath, n/v/d, fever, chills, cough, headache, fatigue, bowel/bladder changes. A full 12 point ROS was conducted and unremarkable except as stated above. PMD: Dr. Epstein PMH: ESRD on HD (//Sat), DM2, HTN, HLD, anemia PSH: unspecified stomach tumor removal, appendectomy, cholecystectomy, thyroid surgery, back surgery Meds: see MAR ALL: NKDA SH: Previous history of light smoking. No EtOH or recreational drug use. Lives at home with family. FH: Father: DM2 Present on Admission - Present on Admission Any Indicators Present on Admission: No Past Patient History - Infectious Disease Hx of Infectious Diseases: None - Tetanus Immunizations Tetanus Immunization: Unknown - Past Social History Smoking Status: Former Smoker - CARDIAC Hx Pacemaker: No - PULMONARY Hx Respiratory Disorders: No - NEUROLOGICAL Hx Neurological Disorder: No - HEENT Hx HEENT Problems: No - RENAL Hx Chronic Kidney Disease: Yes Hx Dialysis: Yes (Tues,Thurs,Sat) - ENDOCRINE/METABOLIC Hx Diabetes Mellitus Type 2: Yes - HEMATOLOGICAL/ONCOLOGICAL Hx Cancer: No - INTEGUMENTARY Hx Dermatological Problems: No - MUSCULOSKELETAL/RHEUMATOLOGICAL Hx Falls: No - GASTROINTESTINAL Hx Fatty Liver Disease: Yes - GENITOURINARY/GYNECOLOGICAL Hx Genitourinary Disorders: No - PSYCHIATRIC Hx Psychophysiologic Disorder: No Hx Substance Use: No - SURGICAL HISTORY Hx Mastectomy: No - ANESTHESIA Hx Anesthesia: Yes Hx Anesthesia Reactions: No Hx Malignant Hyperthermia: No Meds Allergies/Adverse Reactions: Allergies Allergy/AdvReac Type Severity Reaction Status Date / Time No Known Allergies Allergy Verified 12/23/18 11:46 Physical Exam - Constitutional Appears: No Acute Distress - Head Exam Head Exam: ATRAUMATIC, NORMAL INSPECTION, NORMOCEPHALIC - Eye Exam Eye Exam: EOMI, Normal appearance - ENT Exam ENT Exam: Mucous Membranes Moist - Neck Exam Neck exam: Positive for: Normal Inspection - Respiratory Exam Respiratory Exam: Clear to Auscultation Bilateral. absent: Accessory Muscle Use, Chest Wall Tenderness, Rales, Rhonchi, Wheezes, Respiratory Distress - Cardiovascular Exam Cardiovascular Exam: RRR, +S1, +S2. absent: Systolic Murmur Additional comments: Perma-cath port in place on chest wall. - GI/Abdominal Exam GI & Abdominal Exam: Soft. absent: Firm, Guarding, Rigid - Extremities Exam Extremities exam: Positive for: normal capillary refill, tenderness, pedal pulses present Additional comments: +2 pitting edema bilateral lower extremities. - Neurological Exam Neurological exam: Alert, CN II-XII Intact, Oriented x3, Reflexes Normal - Psychiatric Exam Psychiatric exam: Normal Affect, Normal Mood - Skin Skin Exam: Dry, Intact, Normal Color, Warm Results - Vital Signs Recent Vital Signs: Last Vital Signs Temp 98.6 F 01/15/19 02:46 Pulse 65 01/15/19 02:46 Resp 15 01/15/19 02:46 BP 119/42 L 01/15/19 02:46 Pulse Ox 95 01/15/19 02:46 - Labs Result Diagrams: 01/15/19 02:40 01/15/19 02:40 Labs: Laboratory Results - last 24 hr 02/28/19 02/28/19 02/28/19 02:36 02:40 02:40 WBC 7.6 RBC 3.19 L Hgb 10.0 L Hct 30.1 L MCV 94.4 MCH 31.3 MCHC 33.2 RDW 15.3 H Plt Count 199 MPV 10.2 Neut % (Auto) 76.5 H Lymph % (Auto) 12.6 L [place] % (Auto) 9.3 H Eos % (Auto) 1.6 Baso % (Auto) 0.0 Lymph # (Auto) 1.0 L [place] # (Auto) 0.7 H Eos # (Auto) 0.1 Baso # (Auto) 0.00 Absolute Neuts (auto) 5.84 Sodium 129 L Potassium 3.8 Chloride 95 L Carbon Dioxide 29 Anion Gap 9 L BUN 34 H Creatinine 2.8 H Est GFR ( Amer) 20 Est GFR (Non-Af Amer) 17 POC Glucose (mg/dL) 98 Random Glucose 100 Calcium 7.9 L Total Bilirubin 0.2 AST 25 ALT 19 Alkaline Phosphatase 172 H Troponin I < 0.01 D Total Protein 5.5 L Albumin 2.6 L Globulin 2.8 Albumin/Globulin Ratio 0.9 L Assessment & Plan - Assessment and Plan (Free Text) Assessment: Patient is a 68 year old French Speaking female with PMHx ESRD on HD (//Sat), DM2, HTN, HLD, anemia who presented to the Emergency Department for lethargy for one day in duration. Patient will be observed on remote telemetry for lethargy 2/2 hypoglycemia. Plan: Lethargy 2/2 Hypoglycemia - D5NS @ 30 cc/hr - daily labs - neurochecks q4 - frequent finger-sticks q2 for at least the first 24 hours - UA - urine cx - Blood Cx - CXR: no consolidation or infiltrate - CT Head: no acute pathology - EKG: NSR at [address] or T wave changes. - Previous hospital admission, treated for altered mental status 2/2 ESBL UTI ESRD - on HD (, , Sat) - Nephro on consult (Dr. Santiago) - Schedule for HD today via perma-cath access - c/w home med sevelamer - monitor renal function; Cr 2.8 (2.2 on previous discharge) DM II - ISS (low) - Accuchecks HTN - resume home BP meds with holding parameters - resume norvasc, coreg, clonidine, hydralazine, losartan/HCTZ, demadex HLD - resume home med lipitor and fenofibrate DVT ppx: hep sc GI ppx: ptx Diet: Renal Dispo: observe patient on remote tele. Case was discussed and reviewed with Attending Physician, Dr. Oneil <Andrew Oneil - Last Filed: 01/15/19 06:23> Results - Vital Signs Recent Vital Signs: Last Vital Signs Temp 98.6 F 01/15/19 02:46 Pulse 66 01/15/19 04:13 Resp 20 01/15/19 05:57 BP 136/93 H 01/15/19 04:13 Pulse Ox 99 01/15/19 04:13 - Labs Result Diagrams: 01/15/19 02:40 01/15/19 02:40 Labs: Laboratory Results - last 24 hr 01/15/19 01/15/19 01/15/19 02:36 02:40 02:40 WBC 7.6 RBC 3.19 L Hgb 10.0 L Hct 30.1 L MCV 94.4 MCH 31.3 MCHC 33.2 RDW 15.3 H Plt Count 199 MPV 10.2 Neut % (Auto) 76.5 H Lymph % (Auto) 12.6 L [place] % (Auto) 9.3 H Eos % (Auto) 1.6 Baso % (Auto) 0.0 Lymph # (Auto) 1.0 L [place] # (Auto) 0.7 H Eos # (Auto) 0.1 Baso # (Auto) 0.00 Absolute Neuts (auto) 5.84 Sodium 129 L Potassium 3.8 Chloride 95 L Carbon Dioxide 29 Anion Gap 9 L BUN 34 H Creatinine 2.8 H Est GFR ( Amer) 20 Est GFR (Non-Af Amer) 17 POC Glucose (mg/dL) 98 Random Glucose 100 Calcium 7.9 L Total Bilirubin 0.2 AST 25 ALT 19 Alkaline Phosphatase 172 H Troponin I < 0.01 D Total Protein 5.5 L Albumin 2.6 L Globulin 2.8 Albumin/Globulin Ratio 0.9 L 01/15/19 03:56 WBC RBC Hgb Hct MCV MCH MCHC RDW Plt Count MPV Neut % (Auto) Lymph % (Auto) [place] % (Auto) Eos % (Auto) Baso % (Auto) Lymph # (Auto) [place] # (Auto) Eos # (Auto) Baso # (Auto) Absolute Neuts (auto) Sodium Potassium Chloride Carbon Dioxide Anion Gap BUN Creatinine Est GFR ( Amer) Est GFR (Non-Af Amer) POC Glucose (mg/dL) 116 H Random Glucose Calcium Total Bilirubin AST ALT Alkaline Phosphatase Troponin I Total Protein Albumin Globulin Albumin/Globulin Ratio Attending/Attestation - Attestation I have personally seen and examined this patient.: Yes I have fully participated in the care of the patient.: Yes I have reviewed all pertinent clinical information: Yes Notes (Text): 01/15/19 06:21 Patient was seen when she was in the ER in bed # 3. She is sleepy at time of examination. Medical record was reviewed. Agree with history, physical examination, assessment and plan.
[2019-01-15] MEDS ORDERED: Dextrose 5%/0.9% NS 1,000 ML IV SCH (05:30)
[2019-01-15] MEDS: Pantoprazole 40 mg EC Tab PO SCH (06:37)
[2019-01-15] MEDS ORDERED: Dextrose 50% SYRINGE Inj (50 ml) IVP ONE (07:26)
[2019-01-15] MEDS ORDERED: Dextrose 50% SYRINGE Inj (50 ml) IV PRN (07:26)
[2019-01-15] MEDS: Insulin Lispro (humaLOG) LOW Coverage SC SCH ×4 (07:45→21:44)
--- NOTE | 2019-01-15 07:51 | CT ---
Date of service: 01/15/2019 PROCEDURE: CT HEAD WITHOUT CONTRAST. HISTORY: weakness COMPARISON: None available. TECHNIQUE: Axial computed tomography images were obtained through the head/brain without intravenous contrast. Radiation dose: Total exam DLP = 861.05 mGy-cm. This CT exam was performed using one or more of the following dose reduction techniques: Automated exposure control, adjustment of the mA and/or kV according to patient size, and/or use of iterative reconstruction technique. FINDINGS: HEMORRHAGE: No intracranial hemorrhage. BRAIN: Good corticomedullary differentiation is seen. Reiterated diffuse cerebral atrophy and chronic microangiopathy. No suspicious extra-axial fluid collection is identified and the midline brain anatomy appears grossly nonfocal as imaged. No mass effect identified. VENTRICLES: Unremarkable. No hydrocephalus. CALVARIUM: Unremarkable. PARANASAL SINUSES: Bilateral maxillary sinusitis identified on a mild basis. MASTOID AIR CELLS: Unremarkable as visualized. No inflammatory changes. OTHER FINDINGS: None. IMPRESSION: Stable age related neuro degenerative findings as per above, age-appropriate. MRI may be utilized for greater soft tissue resolution based on clinical exam.
--- NOTE | 2019-01-15 08:37 | RAD ---
Date of service: 01/15/2019 HISTORY: cp COMPARISON: Portable chest 01/03/2019. FINDINGS: LUNGS: No active pulmonary disease. PLEURA: No significant pleural effusion identified, no pneumothorax apparent. CARDIOVASCULAR: Calcific atherosclerotic changes are seen related to the thoracic aorta. Normal cardiac size. No pulmonary vascular congestion. Temporary right central venous dialysis catheter appears to have been converted to prominent tunneled type. Tips terminating at the atrial caval junction and right atrium. Right PICC now removed. OSSEOUS STRUCTURES: No significant abnormalities. VISUALIZED UPPER ABDOMEN: Elevated right hemidiaphragm reiterated. OTHER FINDINGS: None. IMPRESSION: No interval acute cardiopulmonary disease appreciated. Permanent right center venous dialysis catheter now identified in position as discussed above. Elevated right hemidiaphragm reiterated.
--- NOTE | 2019-01-15 09:17 | CARD ---
APPROVED REPORT Date of service: 01/15/2019 EKG Measurement Heart [id number] <Conclusion> Normal sinus rhythm Normal ECG
[2019-01-15] MEDS ORDERED: [UNRECOGNIZED DRUG - OTHER] PO SCH (10:00)
[2019-01-15] MEDS ORDERED: Ergocalciferol 50,000 Intl Units Cap PO SCH (10:00)
[2019-01-15] MEDS ORDERED: HYDROCHLOROTHIAZIDE PO SCH (10:00)
[2019-01-15] MEDS ORDERED: LOSARTAN PO SCH (10:00)
[2019-01-15] MEDS ORDERED: Dextrose 50% SYRINGE Inj (50 ml) IVP SCH (16:15)
--- NOTE | 2019-01-15 16:36 | CP.PCM.CON ---
<CamilleSarthak - Last Filed: 01/15/19 16:33> History of Present Illness - History of Present Illness History of Present Illness: Nephrology consult note - Camille PGY - 2 Reason for consult: ESRD on HD 68 F with pertinent medical history of DM2 and CKD on HD presents with generalzed fatigue. Patient was apparently found to be "hypoglycemic" with glucose levels of 60; glucagon was given in the field, but patient was still admitted to [facility]. We are on consult for HD. Review of systems: 12 point ROS obtained and negative except as per HPI PMH: DM2, CKD stage IV (diabetic), HTN, anemia (ACD, CKD), fatty liver, UTI and obesity PSH: Stomach tumor removal, appendectomy, cholecystectomy, thyroid surgery, back surgery Meds: Reviewed on JAN Allergies: NKDA SHx: Previous history of light smoking FHx: Father: DM2 Past Patient History - Infectious Disease Hx of Infectious Diseases: None - Tetanus Immunizations Tetanus Immunization: Unknown - Past Social History Smoking Status: Former Smoker - CARDIAC Hx Pacemaker: No - PULMONARY Hx Respiratory Disorders: No - NEUROLOGICAL Hx Neurological Disorder: No - HEENT Hx HEENT Problems: No - RENAL Hx Chronic Kidney Disease: Yes Hx Dialysis: Yes (,,Sat) - ENDOCRINE/METABOLIC Hx Diabetes Mellitus Type 2: Yes - HEMATOLOGICAL/ONCOLOGICAL Hx Cancer: No - INTEGUMENTARY Hx Dermatological Problems: No - MUSCULOSKELETAL/RHEUMATOLOGICAL Hx Falls: No - GASTROINTESTINAL Hx Fatty Liver Disease: Yes - GENITOURINARY/GYNECOLOGICAL Hx Genitourinary Disorders: No - PSYCHIATRIC Hx Psychophysiologic Disorder: No Hx Substance Use: No - SURGICAL HISTORY Hx Mastectomy: No - ANESTHESIA Hx Anesthesia: Yes Hx Anesthesia Reactions: No Hx Malignant Hyperthermia: No Meds Allergies/Adverse Reactions: Allergies Allergy/AdvReac Type Severity Reaction Status Date / Time No Known Allergies Allergy Verified 12/23/18 11:46 - Medications Medications: Current Medications Amlodipine Besylate (Norvasc) 10 mg PO DAILY [facility] Atorvastatin Calcium (Lipitor) 40 mg PO DAILY [facility] Carvedilol (Coreg) 25 mg PO Q12H [facility] Last Admin: 01/15/19 06:36 Dose: 25 mg Clonidine HCl (Catapres Tts1 0.1 Mg/24 Hr) 1 patch TD QWK [facility] Dextrose (Dextrose 50% Inj) 0 ml IV STAT PRN; Protocol PRN Reason: Hypoglycemia Protocol Last Admin: 01/15/19 12:25 Dose: 50 ml Dextrose (Dextrose 50% Inj) 50 ml IVP Q4H [facility] Stop: 01/16/19 00:16 Ergocalciferol (Drisdol 50,000 Intl Units Cap) 1 cap PO Q7D [facility] Fenofibrate (Tricor) 48 mg PO DAILY [facility] Gabapentin (Neurontin) 100 mg PO BID [facility]; Protocol Heparin Sodium (Porcine) (Heparin) 5,000 units SC Q8 [facility]; Protocol Last Admin: 01/15/19 06:37 Dose: 5,000 units Hydralazine HCl (Apresoline) 100 mg PO Q8 [facility] Last Admin: 01/15/19 06:35 Dose: 100 mg Hydrochlorothiazide (Microzide) 12.5 mg PO DAILY [facility] Dextrose (Dextrose 5% In Water 1000 Ml) 1,000 mls @ 0 mls/hr IV .Q0M PRN; Protocol PRN Reason: Hypoglycemia Protocol Dextrose (Dextrose 5% In Water 1000 Ml) 1,000 mls @ 75 mls/hr IV .[id number] [facility] Last Admin: 01/15/19 12:52 Dose: 75 mls/hr Insulin Human Lispro (Humalog Low) 0 units SC ACHS [facility]; Protocol Losartan Potassium (Cozaar) 50 mg PO DAILY [facility] Pantoprazole Sodium (Protonix Ec Tab) 40 mg PO 0600 [facility] Last Admin: 01/15/19 06:37 Dose: 40 mg Sevelamer HCl (Renagel) 800 mg PO WM TL Torsemide (Demadex) 20 mg PO BID [facility] Physical Exam - Constitutional Appears: Well - Head Exam Head Exam: ATRAUMATIC, NORMAL INSPECTION, NORMOCEPHALIC - Eye Exam Eye Exam: EOMI, Normal appearance, PERRL Pupil Exam: NORMAL ACCOMODATION, PERRL - ENT Exam ENT Exam: Mucous Membranes Moist, Normal Exam - Neck Exam Neck exam: Positive for: Normal Inspection - Respiratory Exam Respiratory Exam: Clear to Auscultation Bilateral, NORMAL BREATHING PATTERN - Cardiovascular Exam Cardiovascular Exam: REGULAR RHYTHM - GI/Abdominal Exam GI & Abdominal Exam: Normal Bowel Sounds, Soft. absent: Tenderness - Extremities Exam Extremities exam: Positive for: normal inspection - Back Exam Back exam: NORMAL INSPECTION - Neurological Exam Neurological exam: Alert, CN II-XII Intact, Normal Gait, Oriented x3, Reflexes Normal - Psychiatric Exam Psychiatric exam: Normal Affect, Normal Mood - Skin Skin Exam: Dry, Intact, Normal Color, Warm Results - Vital Signs Recent Vital Signs: Last Vital Signs Temp 98.6 F 01/15/19 08:28 Pulse 69 01/15/19 08:28 Resp 20 01/15/19 08:28 BP 134/68 01/15/19 08:28 Pulse Ox 97 01/15/19 08:28 - Labs Result Diagrams: 01/15/19 02:40 01/15/19 02:40 Labs: Laboratory Results - last 24 hr 01/15/19 01/15/19 01/15/19 02:36 02:40 02:40 WBC 7.6 RBC 3.19 L Hgb 10.0 L Hct 30.1 L MCV 94.4 MCH 31.3 MCHC 33.2 RDW 15.3 H Plt Count 199 MPV 10.2 Neut % (Auto) 76.5 H Lymph % (Auto) 12.6 L Valencia % (Auto) 9.3 H Eos % (Auto) 1.6 Baso % (Auto) 0.0 Lymph # (Auto) 1.0 L Valencia # (Auto) 0.7 H Eos # (Auto) 0.1 Baso # (Auto) 0.00 Absolute Neuts (auto) 5.84 Sodium 129 L Potassium 3.8 Chloride 95 L Carbon Dioxide 29 Anion Gap 9 L BUN 34 H Creatinine 2.8 H Est GFR ( Amer) 20 Est GFR (Non-Af Amer) 17 POC Glucose (mg/dL) 98 Random Glucose 100 Calcium 7.9 L Total Bilirubin 0.2 AST 25 ALT 19 Alkaline Phosphatase 172 H Troponin I < 0.01 D Total Protein 5.5 L Albumin 2.6 L Globulin 2.8 Albumin/Globulin Ratio 0.9 L 01/15/19 01/15/19 01/15/19 03:56 07:15 08:09 WBC RBC Hgb Hct MCV MCH MCHC RDW Plt Count MPV Neut % (Auto) Lymph % (Auto) Valencia % (Auto) Eos % (Auto) Baso % (Auto) Lymph # (Auto) Valencia # (Auto) Eos # (Auto) Baso # (Auto) Absolute Neuts (auto) Sodium Potassium Chloride Carbon Dioxide Anion Gap BUN Creatinine Est GFR ( Amer) Est GFR (Non-Af Amer) POC Glucose (mg/dL) 116 H 67 142 H Random Glucose Calcium Total Bilirubin AST ALT Alkaline Phosphatase Troponin I Total Protein Albumin Globulin Albumin/Globulin Ratio 01/15/19 01/15/19 11:51 12:45 WBC RBC Hgb Hct MCV MCH MCHC RDW Plt Count MPV Neut % (Auto) Lymph % (Auto) Valencia % (Auto) Eos % (Auto) Baso % (Auto) Lymph # (Auto) Valencia # (Auto) Eos # (Auto) Baso # (Auto) Absolute Neuts (auto) Sodium Potassium Chloride Carbon Dioxide Anion Gap BUN Creatinine Est GFR ( Amer) Est GFR (Non-Af Amer) POC Glucose (mg/dL) 53 L 131 H Random Glucose Calcium Total Bilirubin AST ALT Alkaline Phosphatase Troponin I Total Protein Albumin Globulin Albumin/Globulin Ratio Assessment & Plan - Assessment and Plan (Free Text) Assessment: Assessment and Plan (1) ESRD on hemodialysis Assessment & Plan: Stable electrolyte status with mild hyponatremia - Continue Torsemide, Sevalamer - HD today per schedule - Pending AV Fistula placement - Avoid nephrotoxic agents Status: Chronic (2) Hypertensive CKD, ESRD on dialysis Assessment & Plan: - Continue Losartan, Norvasc, Coreg, Hydralazine and Clonidine patch Status: Chronic (3) Anemia Assessment & Plan: H/H at goal for CKD (10 today; goal of 10-11) - Aranesp as needed Status: Chronic (4) Chronic kidney disease-mineral and bone disorder Assessment & Plan: Sevalamer with meals Status: Chronic (5) Nephrotic syndrome Assessment & Plan: Continue HD Status: Chronic (6) Hyponatremia Mild - Monitor; continue with HD Status: Acute <Darron Santiago - Last Filed: 01/16/19 08:48> Meds - Medications Medications: Current Medications Amlodipine Besylate (Norvasc) 10 mg PO DAILY [facility] Last Admin: 01/15/19 10:07 Dose: Not Given Atorvastatin Calcium (Lipitor) 40 mg PO DAILY [facility] Last Admin: 01/15/19 10:06 Dose: Not Given Carvedilol (Coreg) 25 mg PO Q12H [facility] Last Admin: 01/16/19 06:43 Dose: 25 mg Clonidine HCl (Catapres Tts1 0.1 Mg/24 Hr) 1 patch TD QWK [facility] Last Admin: 01/15/19 18:41 Dose: 1 patch Dextrose (Dextrose 50% Inj) 0 ml IV STAT PRN; Protocol PRN Reason: Hypoglycemia Protocol Last Admin: 01/15/19 12:25 Dose: 50 ml Dextrose (Dextrose 50% Inj) 50 ml IVP Q4H PRN PRN Reason: sugar below 90 Ergocalciferol (Drisdol 50,000 Intl Units Cap) 1 cap PO Q7D [facility] Last Admin: 01/15/19 10:05 Dose: Not Given Fenofibrate (Tricor) 48 mg PO DAILY [facility] Last Admin: 01/15/19 10:08 Dose: Not Given Gabapentin (Neurontin) 100 mg PO BID [facility]; Protocol Last Admin: 01/15/19 18:39 Dose: 100 mg Heparin Sodium (Porcine) (Heparin) 5,000 units SC Q8 [facility]; Protocol Last Admin: 01/16/19 06:44 Dose: 5,000 units Hydralazine HCl (Apresoline) 100 mg PO Q8 [facility] Last Admin: 01/16/19 06:43 Dose: 100 mg Hydrochlorothiazide (Microzide) 12.5 mg PO DAILY [facility] Last Admin: 01/15/19 10:07 Dose: 12.5 mg Dextrose (Dextrose 5% In Water 1000 Ml) 1,000 mls @ 0 mls/hr IV .Q0M PRN; Protocol PRN Reason: Hypoglycemia Protocol Dextrose (Dextrose 5% In Water 1000 Ml) 1,000 mls @ 75 mls/hr IV .[id number] [facility] Last Admin: 01/16/19 04:32 Dose: 75 mls/hr Insulin Human Lispro (Humalog Low) 0 units SC ACHS [facility]; Protocol Last Admin: 01/15/19 21:44 Dose: Not Given Losartan Potassium (Cozaar) 50 mg PO DAILY [facility] Last Admin: 01/15/19 10:04 Dose: 50 mg Pantoprazole Sodium (Protonix Ec Tab) 40 mg PO 0600 [facility] Last Admin: 01/16/19 06:44 Dose: 40 mg Sevelamer HCl (Renagel) 800 mg PO WM [facility] Last Admin: 01/15/19 18:39 Dose: 800 mg Torsemide (Demadex) 50 mg PO BID [facility] Results - Vital Signs Recent Vital Signs: Last Vital Signs Temp 99.7 F H 01/16/19 08:33 Pulse 78 01/16/19 08:33 Resp 20 01/16/19 08:33 BP 132/67 01/16/19 08:33 Pulse Ox 97 01/16/19 08:33 - Labs Result Diagrams: 01/15/19 02:40 01/15/19 02:40 Labs: Laboratory Results - last 24 hr 01/15/19 01/15/19 01/15/19 11:51 12:45 16:40 POC Glucose (mg/dL) 53 L 131 H 89 01/15/19 01/16/19 21:43 07:41 POC Glucose (mg/dL) 201 H 98 Attending/Attestation - Attestation I have personally seen and examined this patient.: Yes I have fully participated in the care of the patient.: Yes I have reviewed all pertinent clinical information: Yes Notes (Text): Patient seen and examined; I agree with the resident' note as above with the following additions/edits: 68 yo F w/ pmh of htn, dm, and ESRD initiated on HD earlier this month after presenting with UTI sepsis, currently being managed by our outpatient service (secondary to biopsy proven diabetic nephropathy with nephrotic syndrome), admitted with hypoglycemia, nephrology being consulted for ESRD care; Etiology of hypoglycemia not entirely clear; didn't have this problem during her recent 2 week admission here; no change in her home insulin regimen, however, considering worsening renal failure, decrease insulin clearance likely contributory; Nephrotic syndrome with markedly edematous legs; lungs clear on exam and no dyspnea reported; patient has high inter-dialytic weight gains and needs counseling on limiting fluid/salt intake; will continue losartan 50 mg daily; increasing torsemide to 50 mg bid; HTN of ESRD; overall much better controlled; continuing current meds; Anemia of CKD; Hgb just at goal (10-11g); will continue with EPO as outpatient; -Dialyzing today per routine with ~3L UF goal; -Avoid nephrotoxic agents (to preserve residual renal function);
[2019-01-15] MEDS ORDERED: Dextrose 50% SYRINGE Inj (50 ml) IVP PRN (16:40)
[2019-01-16] MEDS: Pantoprazole 40 mg EC Tab PO SCH (06:44)
[2019-01-16 06:45] VITALS: BP 132/67; PULSE 78
--- NOTE | 2019-01-16 08:01 | CP.PCM.PN ---
Subjective - Date & Time of Evaluation Date of Evaluation: 01/16/19 Time of Evaluation: 08:01 Objective - Vital Signs/Intake and Output Vital Signs (last 24 hours): Temp Pulse Resp BP Pulse Ox 97.7 F 78 18 132/67 98 01/15/19 19:49 01/16/19 06:43 01/15/19 19:49 01/16/19 06:43 01/15/19 19:49 Intake and Output: 01/16/19 01/16/19 06:59 18:59 Intake Total 1440 Output Total 700 Balance 740 - Medications Medications: Current Medications Amlodipine Besylate (Norvasc) 10 mg PO DAILY [facility] Last Admin: 01/15/19 10:07 Dose: Not Given Atorvastatin Calcium (Lipitor) 40 mg PO DAILY [facility] Last Admin: 01/15/19 10:06 Dose: Not Given Carvedilol (Coreg) 25 mg PO Q12H [facility] Last Admin: 01/16/19 06:43 Dose: 25 mg Clonidine HCl (Catapres Tts1 0.1 Mg/24 Hr) 1 patch TD QWK [facility] Last Admin: 01/15/19 18:41 Dose: 1 patch Dextrose (Dextrose 50% Inj) 0 ml IV STAT PRN; Protocol PRN Reason: Hypoglycemia Protocol Last Admin: 01/15/19 12:25 Dose: 50 ml Dextrose (Dextrose 50% Inj) 50 ml IVP Q4H PRN PRN Reason: sugar below 90 Ergocalciferol (Drisdol 50,000 Intl Units Cap) 1 cap PO Q7D [facility] Last Admin: 01/15/19 10:05 Dose: Not Given Fenofibrate (Tricor) 48 mg PO DAILY [facility] Last Admin: 01/15/19 10:08 Dose: Not Given Gabapentin (Neurontin) 100 mg PO BID [facility]; Protocol Last Admin: 01/15/19 18:39 Dose: 100 mg Heparin Sodium (Porcine) (Heparin) 5,000 units SC Q8 [facility]; Protocol Last Admin: 01/16/19 06:44 Dose: 5,000 units Hydralazine HCl (Apresoline) 100 mg PO Q8 [facility] Last Admin: 01/16/19 06:43 Dose: 100 mg Hydrochlorothiazide (Microzide) 12.5 mg PO DAILY [facility] Last Admin: 01/15/19 10:07 Dose: 12.5 mg Dextrose (Dextrose 5% In Water 1000 Ml) 1,000 mls @ 0 mls/hr IV .Q0M PRN; Protocol PRN Reason: Hypoglycemia Protocol Dextrose (Dextrose 5% In Water 1000 Ml) 1,000 mls @ 75 mls/hr IV .[id number] [facility] Last Admin: 01/16/19 04:32 Dose: 75 mls/hr Insulin Human Lispro (Humalog Low) 0 units SC ACHS [facility]; Protocol Last Admin: 01/15/19 21:44 Dose: Not Given Losartan Potassium (Cozaar) 50 mg PO DAILY [facility] Last Admin: 01/15/19 10:04 Dose: 50 mg Pantoprazole Sodium (Protonix Ec Tab) 40 mg PO 0600 [facility] Last Admin: 01/16/19 06:44 Dose: 40 mg Sevelamer HCl (Renagel) 800 mg PO WM [facility] Last Admin: 01/15/19 18:39 Dose: 800 mg Torsemide (Demadex) 20 mg PO BID [facility] Last Admin: 01/15/19 18:39 Dose: 20 mg - Labs Labs: 01/15/19 02:40 01/15/19 02:40
[2019-01-16 08:34] VITALS: RESP 20; TEMP 99.7; O2SAT 97
[2019-01-16] MEDS: Insulin Lispro (humaLOG) LOW Coverage SC SCH (08:42)
--- NOTE | 2019-01-16 11:22 | CP.PCM.DIS ---
<Mauricio Leigh - Last Filed: 01/16/19 13:57> Provider - Provider Date of Admission: 01/15/19 04:19 Attending physician: Tigist Bliss MD Primary care physician: Cornelius Epstein MD Consults: 01/15/19 05:14 Physician Consult Routine Comment: Consulting Provider: Darron Santiago Consulting Physician: Darron Santiago Reason for Consult: ESRD on HD Time Spent in preparation of Discharge (in minutes): 45 Diagnosis - Discharge Diagnosis (1) Hypoglycemia Status: Resolved (2) Fatigue Status: Resolved (3) Diabetes Status: Chronic (4) ESRD on hemodialysis Status: Chronic (5) Hypertension Status: Chronic Hospital Course - Lab Results Lab Results: Micro Results 01/15/19 09:15 Blood Blood Culture - Preliminary NO GROWTH AFTER 24 HOURS 01/15/19 08:40 Blood Blood Culture - Preliminary NO GROWTH AFTER 24 HOURS Most Recent Lab Values WBC 7.6 10^3/uL (4.5-11.0) 01/15/19 02:40 RBC 3.19 10^6/uL (3.5-6.1) L 01/15/19 02:40 Hgb 10.0 g/dL (12.0-16.0) L 01/15/19 02:40 Hct 30.1 % (36.0-48.0) L 01/15/19 02:40 MCV 94.4 fl (80.0-105.0) 01/15/19 02:40 MCH 31.3 pg (25.0-35.0) 01/15/19 02:40 MCHC 33.2 g/dl (31.0-37.0) 01/15/19 02:40 RDW 15.3 % (11.5-14.5) H 01/15/19 02:40 Plt Count 199 10^3/uL (120.0-450.0) 01/15/19 02:40 MPV 10.2 fl (7.0-11.0) 01/15/19 02:40 Neut % (Auto) 76.5 % (50.0-68.0) H 01/15/19 02:40 Lymph % (Auto) 12.6 % (22.0-35.0) L 01/15/19 02:40 [place] % (Auto) 9.3 % (1.0-6.0) H 01/15/19 02:40 Eos % (Auto) 1.6 % (1.5-5.0) 01/15/19 02:40 Baso % (Auto) 0.0 % (0.0-3.0) 01/15/19 02:40 Lymph # (Auto) 1.0 (1.2-3.4) L 01/15/19 02:40 [place] # (Auto) 0.7 (0.1-0.6) H 01/15/19 02:40 Eos # (Auto) 0.1 (0.0-0.7) 01/15/19 02:40 Baso # (Auto) 0.00 K/mm3 (0.0-2.0) 01/15/19 02:40 Absolute Neuts (auto) 5.84 (1.4-6.5) 01/15/19 02:40 Sodium 129 mmol/L (132-148) L 01/15/19 02:40 Potassium 3.8 mmol/L (3.6-5.0) 01/15/19 02:40 Chloride 95 mmol/L (98-107) L 01/15/19 02:40 Carbon Dioxide 29 mmol/L (21-33) 01/15/19 02:40 Anion Gap 9 (10-20) L 01/15/19 02:40 BUN 34 mg/dL (7-21) H 01/15/19 02:40 Creatinine 2.8 mg/dl (0.7-1.2) H 01/15/19 02:40 Est GFR ( Amer) 20 01/15/19 02:40 Est GFR (Non-Af Amer) 17 01/15/19 02:40 POC Glucose (mg/dL) 98 mg/dL (65-110) 01/16/19 07:41 Random Glucose 100 mg/dL (70-110) 01/15/19 02:40 Calcium 7.9 mg/dL (8.4-10.5) L 01/15/19 02:40 Total Bilirubin 0.2 mg/dL (0.2-1.3) 01/15/19 02:40 AST 25 U/L (14-36) 01/15/19 02:40 ALT 19 U/L (7-56) 01/15/19 02:40 Alkaline Phosphatase 172 U/L (38-126) H 01/15/19 02:40 Troponin I < 0.01 ng/mL D 01/15/19 02:40 Total Protein 5.5 g/dL (5.8-8.3) L 01/15/19 02:40 Albumin 2.6 g/dL (3.0-4.8) L 01/15/19 02:40 Globulin 2.8 gm/dL 01/15/19 02:40 Albumin/Globulin Ratio 0.9 (1.1-1.8) L 01/15/19 02:40 - Hospital Course Hospital Course: Patient is a 68 year old Greenlandic Speaking female with PMHx ESRD on HD (//Sat), DM2, HTN, HLD, anemia who presented to the Emergency Department for lethargy for one day in duration. As per family, patient has been lethargic throughout the day. Patient was also noted to be hypoglycemic en route to the hospital. En route to the hospital blood sugar was in the 60s. In the course of her hospital stay, patient was treated with Dextrose. Her glucose levels normalized. CXR showed no consolidation or infiltrate. CT Head showed no acute pathology. EKG showed NSR at [address] or T wave changes. Nephrology, Dr. Santiago was consulted for patient's ESRD and recommended for patient to continue home medications, continue scheduled HD, and avoid nephrotoxic agents. Patient states that she feels better and was instructed to discontinue her home Insulin and Amaryl since her glucose levels have been low. She was insntructed to measure your blood glucose regularly at home and have a record of the sugar levels. If the sugar levels are very high, she may have to start your insulin again. Instructed to follow up with your primary care doctor within 1 week of discharge from the hospital. And to return to the emergency room for worsening or newly concerning symptoms. Patient is medically optimized for discharge. Discharge Exam - Head Exam Head Exam: ATRAUMATIC, NORMAL INSPECTION, NORMOCEPHALIC - Additional Findings Additional findings: - Constitutional Appears: Well - Head Exam Head Exam: ATRAUMATIC, NORMAL INSPECTION, NORMOCEPHALIC - Eye Exam Eye Exam: EOMI, Normal appearance, PERRL Pupil Exam: NORMAL ACCOMODATION, PERRL - ENT Exam ENT Exam: Mucous Membranes Moist, Normal Exam - Neck Exam Neck exam: Positive for: Normal Inspection - Respiratory Exam Respiratory Exam: Clear to Auscultation Bilateral, NORMAL BREATHING PATTERN - Cardiovascular Exam Cardiovascular Exam: REGULAR RHYTHM - GI/Abdominal Exam GI & Abdominal Exam: Normal Bowel Sounds, Soft. absent: Tenderness - Extremities Exam Extremities exam: Positive for: normal inspection - Back Exam Back exam: NORMAL INSPECTION - Neurological Exam Neurological exam: Alert, CN II-XII Intact, Normal Gait, Oriented x3, Reflexes Normal - Psychiatric Exam Psychiatric exam: Normal Affect, Normal Mood - Skin Skin Exam: Dry, Intact, Normal Color, Warm Discharge Plan - Discharge Medications Prescriptions: Nystatin [Nystop Topical Powder] 15 applic EXT DAILY PRN #1 bottle PRN Reason: Itching / Pruritus - Follow Up Plan Condition: GOOD Disposition: HOME/ ROUTINE Instructions: Hemodialysis (DC), Low Blood Sugar, Adult (DC), Altered Mental Status (DC) Additional Instructions: 1. Resume all home medications as prescribed by your primary doctor, except for your Insulin and Amaryl 2. Discontinue your home insulin and Amaryl as your blood sugar levels have been low. 3. We have discussed that having low sugar levels can be dangerous. 4. Measure your blood glucose regularly at home and have a record of the sugar levels. If the sugar levels are very high, you may have to start your insulin again. 5. Follow up with your primary care doctor within 1 week of discharge from the hospital. 6. Return to the emergency room for worsening or newly concerning symptoms. 1. reanudar todos los medicamentos caseros segn lo prescrito por stinson mdico de cabecera, excepto stinson insulina, Amaryl. 2. suspenda stinson insulina, Amaryl domstica ya que stinson nivel de azcar en la valarie vasquez sido bajo. 3. hemos discutido que tener niveles bajos de azcar puede ser peligroso. 4. Mida stinson glucosa en la valarie regularmente en casa y tenga un registro de los niveles de azcar. Si los niveles de azcar son muy altos, es posible que tenga que volver a iniciar la insulina. 5. Realice el seguimiento con stinson mdico de atencin primaria dentro de coco semana de mario del hospital. Referrals: Cornelius Epstein MD [Primary Care Provider] - <Tigist Bliss - Last Filed: 01/16/19 14:43> Provider - Provider Date of Admission: 01/15/19 04:19 Attending physician: Tigist Bliss MD Primary care physician: Cornelius Epstein MD Consults: 01/15/19 05:14 Physician Consult Routine Comment: Consulting Provider: Darron Santiago Consulting Physician: Darron Santiago Reason for Consult: ESRD on HD Hospital Course - Lab Results Lab Results: Micro Results 01/15/19 09:15 Blood Blood Culture - Preliminary NO GROWTH AFTER 24 HOURS 01/15/19 08:40 Blood Blood Culture - Preliminary NO GROWTH AFTER 24 HOURS Most Recent Lab Values WBC 7.6 10^3/uL (4.5-11.0) 01/15/19 02:40 RBC 3.19 10^6/uL (3.5-6.1) L 01/15/19 02:40 Hgb 10.0 g/dL (12.0-16.0) L 01/15/19 02:40 Hct 30.1 % (36.0-48.0) L 01/15/19 02:40 MCV 94.4 fl (80.0-105.0) 01/15/19 02:40 MCH 31.3 pg (25.0-35.0) 01/15/19 02:40 MCHC 33.2 g/dl (31.0-37.0) 01/15/19 02:40 RDW 15.3 % (11.5-14.5) H 01/15/19 02:40 Plt Count 199 10^3/uL (120.0-450.0) 01/15/19 02:40 MPV 10.2 fl (7.0-11.0) 01/15/19 02:40 Neut % (Auto) 76.5 % (50.0-68.0) H 01/15/19 02:40 Lymph % (Auto) 12.6 % (22.0-35.0) L 01/15/19 02:40 [place] % (Auto) 9.3 % (1.0-6.0) H 01/15/19 02:40 Eos % (Auto) 1.6 % (1.5-5.0) 01/15/19 02:40 Baso % (Auto) 0.0 % (0.0-3.0) 01/15/19 02:40 Lymph # (Auto) 1.0 (1.2-3.4) L 01/15/19 02:40 [place] # (Auto) 0.7 (0.1-0.6) H 01/15/19 02:40 Eos # (Auto) 0.1 (0.0-0.7) 01/15/19 02:40 Baso # (Auto) 0.00 K/mm3 (0.0-2.0) 01/15/19 02:40 Absolute Neuts (auto) 5.84 (1.4-6.5) 01/15/19 02:40 Sodium 129 mmol/L (132-148) L 01/15/19 02:40 Potassium 3.8 mmol/L (3.6-5.0) 01/15/19 02:40 Chloride 95 mmol/L (98-107) L 01/15/19 02:40 Carbon Dioxide 29 mmol/L (21-33) 01/15/19 02:40 Anion Gap 9 (10-20) L 01/15/19 02:40 BUN 34 mg/dL (7-21) H 01/15/19 02:40 Creatinine 2.8 mg/dl (0.7-1.2) H 01/15/19 02:40 Est GFR ( Amer) 20 01/15/19 02:40 Est GFR (Non-Af Amer) 17 01/15/19 02:40 POC Glucose (mg/dL) 157 mg/dL (65-110) H 01/16/19 11:41 Random Glucose 100 mg/dL (70-110) 01/15/19 02:40 Calcium 7.9 mg/dL (8.4-10.5) L 01/15/19 02:40 Total Bilirubin 0.2 mg/dL (0.2-1.3) 01/15/19 02:40 AST 25 U/L (14-36) 01/15/19 02:40 ALT 19 U/L (7-56) 01/15/19 02:40 Alkaline Phosphatase 172 U/L (38-126) H 01/15/19 02:40 Troponin I < 0.01 ng/mL D 01/15/19 02:40 Total Protein 5.5 g/dL (5.8-8.3) L 01/15/19 02:40 Albumin 2.6 g/dL (3.0-4.8) L 01/15/19 02:40 Globulin 2.8 gm/dL 01/15/19 02:40 Albumin/Globulin Ratio 0.9 (1.1-1.8) L 01/15/19 02:40 Attending/Attestation - Attestation I have personally seen and examined this patient.: Yes I have fully participated in the care of the patient.: Yes I have reviewed all pertinent clinical information, including history, physical exam and plan: Yes Notes (Text): 01/16/19 14:35 68 year old female with past medical history of ESRD on HD (TThS), hypertension, diabetes and dyslipidemia who presented with altered mental status secondary to hypoglycemia. Recent A1c was 5.9. Her insulin and amaryl were held. Fingersticks improved as did mental status. She is now at her baseline. Patient is discharged home to follow up with pmd. Follow up with release engineer. Instructed patient and family at bedside to hold insulin/amaryl for now while monitoring fingersticks at home. Review log book with pmd and repeat A1c in 3 months. Tigist Bliss MD Hospitalist.
== END 2019-01-16 14:21 | disposition home health service (06) ==
LOC: ED 02:33 → ERH 04:19 → 3RNO 05:24 → 3RSO 09:03
PROVIDERS: ADMIT Internal Medicine; ATTEND Internal Medicine
DX: E11.649 Type 2 diabetes mellitus with hypoglycemia without coma (principal); N18.6 End stage renal disease; I12.0 Hypertensive chronic kidney disease with stage 5 chronic kidney disease or end stage renal disease; E11.22 Type 2 diabetes mellitus with diabetic chronic kidney disease; E11.21 Type 2 diabetes mellitus with diabetic nephropathy; N04.9 Nephrotic syndrome with unspecified morphologic changes; E87.1 Hypo-osmolality and hyponatremia; D63.1 Anemia in chronic kidney disease; K76.0 Fatty (change of) liver, not elsewhere classified; E78.5 Hyperlipidemia, unspecified; Z99.2 Dependence on renal dialysis; Z87.891 Personal history of nicotine dependence; Z79.4 Long term (current) use of insulin
CPT/HCPCS: 36415; 70450; 71045; 80053; 82948; 84484; 85025; 87040; 90935; 92610; 93005; 96372; 96374; 96376; 99285; G0378; G8996; G8997; J1644; J7042; J7070

== ENCOUNTER 2019-01-17 11:50 | Inpatient (IN) | payer MEDICARE, OTHER ==
[2019-01-17 11:55] VITALS: BMI 32.1
--- NOTE | 2019-01-17 12:31 | CT ---
Date of service: 01/17/2019 PROCEDURE: CT HEAD WITHOUT CONTRAST. HISTORY: Code Stroke COMPARISON: Noncontrast head CT performed 01/15/19 TECHNIQUE: Axial computed tomography images were obtained through the head/brain without intravenous contrast. Radiation dose: Total exam DLP = 946.24 mGy-cm. This CT exam was performed using one or more of the following dose reduction techniques: Automated exposure control, adjustment of the mA and/or kV according to patient size, and/or use of iterative reconstruction technique. FINDINGS: HEMORRHAGE: No intracranial hemorrhage. BRAIN: Diffuse atrophy with prominence of the ventricles and sulci noted. No mass effect or edema. Intracranial atherosclerosis. Mild scattered white matter hypodensities, which are nonspecific, but often seen with chronic microvascular ischemic disease. Please note that MRI with diffusion imaging is more sensitive in the detection of acute ischemic event. VENTRICLES: No hydrocephalus. CALVARIUM: Unremarkable. PARANASAL SINUSES: Mucosal thickening of the ethmoid air cells and bilateral maxillary sinuses. MASTOID AIR CELLS: Fluid within bilateral mastoid air cells. OTHER FINDINGS: None. IMPRESSION: No acute intracranial pathology identified. Nonspecific white matter changes. Small fluid within bilateral mastoid air cells; correlate clinically for possibility of mastoiditis. Mucosal thickening of the ethmoid air cells and bilateral maxillary sinuses; correlate for sinusitis. Case discussed with Dr. Escalera on 01/17/19 at 12:24 p.m.
--- NOTE | 2019-01-17 12:37 | RAD ---
HISTORY: Code Stroke COMPARISON: Chest x-ray performed 01/15/19 TECHNIQUE: Chest, one view. FINDINGS: Right IJ approach MediPort catheter with tips at the cavoatrial junction and right atrium. LUNGS: No focal consolidation. Please note that chest x-ray has limited sensitivity for the detection of pulmonary masses. PLEURA: No significant pleural effusion identified. No definite pneumothorax . CARDIOVASCULAR: Heart size appears top normal. Atherosclerotic calcifications of the aortic knob. OSSEOUS STRUCTURES: Osseous demineralization. Degenerative changes. VISUALIZED UPPER ABDOMEN: Elevation of the right hemidiaphragm. OTHER FINDINGS: None. IMPRESSION: Right IJ approach MediPort catheter with tips at the cavoatrial junction and right atrium. Elevation of the right hemidiaphragm.
--- NOTE | 2019-01-17 12:46 | EDPD ---
HPI Stroke - General Time Seen by Provider: 01/17/19 11:50 Chief Complaint: Syncope Historian: Patient, Family, EMS, Ignition Mechanic - History of Present Illness Narrative History of Present Illness (Free Text): 01/17/19 12:53 Patient is a 68 yo female past medical history of ESRD on dialysis , , Sat, also with recent admission for "hypoglycemia" presents to the Emergency Department after being found "unresponsive" by family members half hour prior to arrival. History is obtained from patient with EMS clinical supervisor, as well as by granddaughter. Granddaughter and patient states she went to dialysis this morning as scheduled with "no problems". The patient state she "felt weak" but this is not unusual for her. Patient's granddaughter also states she seemed weaker than usual this morning prior to dialysis. Patient reportedly came home from dialysis "was fine" and then granddaughter noticed her "slumped over and drooling" and not responding. EMS states that upon arrival patient was not responsive but was "breathing well with stable vital signs". During her transports she "woke up in the ambulance" and currently is awake and alert. She denies headache or acute visual symptoms. She denies chest pain or back pain or abdominal pain. Reportedly patient ate normally this morning. No recent fevers or trauma. No history of vomiting or diarrhea or dysuria. No acute rashes. Granddaughter states patient is at her baseline right now. Onset:: Just prior to presenting Timing: Improved - Location Location: Difficult to localize rTPA Inclusion/Exclusion - Refusal of Treatment Patient Refused Treatment: Yes - Inclusion Criteria for Altepase The Clinical Diagnosis of Ischemic Stroke That is Causing a Potentially Disabling Neurological Deficit: No - Warning to TPA With Conditions Condition: Rapid Improvement Past Medical History - Infectious Disease Hx of Infectious Diseases: None - Tetanus Immunization Tetanus Immunization: Unknown - Reproductive Menopause: Yes - Cardiac Hx Cardiac Disorders: Yes Hx Hypertension: Yes - Pulmonary Hx Respiratory Disorders: No - Neurological Hx Neurological Disorder: No - HEENT Hx HEENT Disorder: No - Renal Hx Renal Disorder: Yes Hx Dialysis: Yes (,,Sat) Date of Last Dialysis Treatment: 01/17/19 - Endocrine/Metabolic Hx Endocrine Disorders: Yes Hx Diabetes Mellitus Type 2: Yes - Hematological/Oncological Hx Cancer: No - Integumentary Hx Dermatological Disorder: No - Musculoskeletal/Rheumatological Hx Falls: No - Gastrointestinal Hx Fatty Liver Disease: Yes - Genitourinary/Gynecological Hx Genitourinary Disorders: No - Psychiatric Hx Psychophysiologic Disorder: No Hx Substance Use: No - Surgical History Hx Mastectomy: No - Anesthesia Hx Anesthesia: Yes Hx Anesthesia Reactions: No Hx Malignant Hyperthermia: No - Suicidal Assessment Feels Threatened In Home Enviroment: No Allergies/Home Meds Allergies/Adverse Reactions: Allergies No Known Allergies Allergy (Verified 12/23/18 11:46) Review of Systems - Review of Systems Systems not reviewed;Unavailable: Language Barrier (faroese translation from EMS as well as from granddaughter) Constitutional: Fatigue. absent: Fevers Eyes: absent: Vision Changes, Eye Pain Respiratory: absent: SOB Cardiovascular: Syncope. absent: Chest Pain, Palpitations, [place] Gastrointestinal: absent: Abdominal Pain Genitourinary Female: Urine Output Changes. absent: Dysuria Musculoskeletal: absent: Back Pain, Neck Pain Skin: absent: Rash Neurological: absent: Headache, Dizziness, Focal Weakness Psychiatric: absent: Anxiety, Depression ED Stroke Physical Exam - Physical Exam Narrative Physical Exam (Text): Head: Atraumatic. Normocephalic. Eyes: Facial asymmetry at baseline. Visual acuity at baseline. ENT: Mucous membranes are moist and intact. Oropharynx is clear and symmetric. Neck: Supple. Full ROM. No JVD. No lymphadenopathy. Cardiovascular: Regular rate. Regular rhythm. Systolic murmur. Pulmonary/Chest: No evidence of respiratory distress. Clear to auscultation bilaterally. No wheezing, rales or rhonchi. Right sided chest wall port no erythema or edema. Abdominal: Soft and non-distended. There is no tenderness. No rebound, guarding, or rigidity. No organomegaly. Good bowel sounds. Back: No CVA tenderness. Rectal: brown heme negative stool Extremities: No pitting edema. No cyanosis. No clubbing. Full range of motion in all extremities. No calf tenderness. Skin: Skin is warm and dry. No petechiae. No purpura. Neurological: Alert, awake. Baseline speech. No pronator drift. No acute focal weakness. Psychiatric: Good eye contact. Normal interaction, affect, and behavior. Poor memory of event prior to arrival. Vital Signs Reviewed: Yes Vital Signs Temp Pulse Resp BP Pulse Ox 01/17/19 11:50 98.4 F 65 21 141/65 99 Temperature: Afebrile Appearance: Positive for: Non-Toxic Mental Status: Positive for: other (alert, answers questions appropriately) Finger Stick Blood Glucose: 122 Medical Decision Making ED Course and Treatment: 01/17/19 13:00 Patient is a 68 yo female who presented to ED with episode of unresponsiveness. On initial evaluation in ER she is awake, alert, NSR on monitor, stable blood pressure, denies any pain or discomfort. She has no acute focal neuro deficits. Granddaughter is present states she is at her baseline. No recent fevers reported. No hx of sore throat or cough or dizziness. She was recently admitted for episode of "hypoglycemia" although initial fingerstick blood sugar here in ED is unremarkable. CODE stroke called as patient with history of acute altered mental status. Upon return from CT patient is awake, alert with no acute focal neuro deficits, thus not tpa candidate as no new neuro findings. Ddx includes hypoglycemic episode, arrhythmia, cardiac disease, although not limited to this. Serial exams continued and patient will be monitored, labs obtained. Initial evaluation and treatment plan reviewed with patient and granddaughter. She remains comfortable at this time. 01/17/19 12:05 Code Stroke called at this time. 01/17/2019 12:[address] IMPRESSION: No acute intracranial pathology identified. Nonspecific white matter changes. Small fluid within bilateral mastoid air cells; correlate clinically for possibility of mastoiditis. Mucosal thickening of the ethmoid air cells and bilateral maxillary sinuses; correlate for sinusitis. Dictator: Angela Bella MD 01/17/2019 12:37 Chest X-ray IMPRESSION: Right IJ approach MediPort catheter with tips at the cavoatrial junction and right atrium. Elevation of the right hemidiaphragm. Dictator: Angela Bella MD On re-evaluation, patient is comfortable, eating. I feel on review of symptoms with family that event was more syncopal in nature. Patient is noted to have UTI. She is afebrile, not hypotensive or tachycardic. Current exam is not consistent with sepsis. - RAD Interpretation Radiology Orders: 01/17/19 12:09 HEAD W/O (CODE STROKE) [CT] Stat CHEST PORTABLE [RAD] Stat NIHSS Scale ([place]) Time Performed: 12:00 - How Severe is the Stoke Baseline Level of Consciousness: 0=Alert LOC to Questions: 0=Both comments correct LOC to commands: 0=Obeys both correctly Best Gaze: 0=Normal Visual: 0=No visual loss Facial: 0=Normal Motor Arm - Left: 0=No drift Motor Arm - Right: 0=No drift Motor Leg - Left: 0=No drift Motor Leg - Right: 0=No drift Limb Ataxia: 0=Absent Sensory: 0=Normal Best Language: 0=No aphasia Dysarthia: 0=Normal articulation Extinction & Inattention (Neglect): 0=Normal, no object Score: 0 Risk Level: No Stroke Risk Disposition/Present on Arrival - Present on Arrival Any Indicators Present on Arrival: No History of DVT/PE: No History of Uncontrolled Diabetes: No Urinary Catheter: No History of Decub. Ulcer: No History Surgical Site Infection Following: None - Disposition Have Diagnosis and Disposition been Completed?: Yes Diagnosis: Syncope, UTI (urinary tract infection) Disposition: HOSPITALIZED Disposition Time: 14:15 Patient Plan: Admission, Telemetry Patient Problems: Current Active Problems Problem Status Onset Acute encephalopathy Acute Syncope Acute Urinary tract infection Acute Condition: SERIOUS
[2019-01-17 13:20] LABS: BASO # 0.01 K/mm3 (0.0-2.0); BASO % 0.3 % (0.0-3.0); EOS # 0.1 (0.0-0.7); EOS % 1.9 % (1.5-5.0); HEMOGLOBIN 10.3 g/dL (12.0-16.0); LYMPH # 1.1 (1.2-3.4); LYMPH % 29.5 % (22.0-35.0); MEAN CELL VOLUME 94.3 fl (80.0-105.0); MEAN CORPUSCULAR HEMOGLOBIN 30.7 pg (25.0-35.0); MEAN CORPUSCULAR HGB CONC 32.6 g/dl (31.0-37.0); MEAN PLATELET VOLUME 10.1 fl (7.0-11.0); MONO # 0.4 (0.1-0.6); MONO % 10.9 % (1.0-6.0); RBC 3.35 10^6/uL (3.5-6.1); RED CELL DISTRIBUTION WIDTH 15.1 % (11.5-14.5); WHITE BLOOD COUNT 3.7 10^3/uL (4.5-11.0)
[2019-01-17 13:24] LABS: INR 1.1; PARTIAL THROMBOPLASTIN TIME 32.2 Seconds (26.9-38.3); PROTHROMBIN TIME 12.4 SECONDS (9.4-12.5)
[2019-01-17 13:34] LABS: LDL CHOLESTEROL 56 mg/dL (0-129)
[2019-01-17 13:35] LABS: ALB/GLOB RATIO 0.9 (1.1-1.8); ALBUMIN 2.8 g/dL (3.0-4.8); ALT/SGPT 22 U/L (7-56); AST/SGOT 43 U/L (14-36); BLOOD UREA NITROGEN 14 mg/dL (7-21); CALCIUM 7.9 mg/dL (8.4-10.5); GFR NON-AFRICAN AMERICAN 30; HDL CHOLESTEROL 28 mg/dL (29-60)
[2019-01-17 13:37] LABS: TROPONIN I < 0.01 ng/mL
[2019-01-17 14:12] LABS: URINE BILIRUBIN NEGATIVE (NEGATIVE); URINE BLOOD NEGATIVE (NEGATIVE); URINE GLUCOSE (UA) NEGATIVE (NEGATIVE); URINE LEUKOCYTE ESTERASE MODERATE Leu/uL (NEGATIVE); URINE PROTEIN 100 mg/dL (<30 mg/dL); URINE UROBILINOGEN 0.2 E.U./dL (<1 E.U./dL)
[2019-01-17 14:15] LABS: URINE APPEARANCE CLEAR (CLEAR); URINE COLOR YELLOW (YELLOW)
[2019-01-17 14:58] LABS: URINE BACTERIA MANY /hpf; URINE RBC 0 - 2 /hpf (0-2); URINE WBC 25 - 30 /hpf (0-6)
[2019-01-17] MEDS ORDERED: cefTRIAXone 1 gm 1 GM/100 ML BAG IVPB STA (14:58)
--- NOTE | 2019-01-17 16:13 | CP.PCM.CON ---
History of Present Illness - History of Present Illness History of Present Illness: Neurology Consultation Note: Consult requested by Dr. Lele Escalera Mrs. Stern is a 68-year-old woman with a past medical history of HTN, HLD, ESRD on HD, who went home today after dialysis and was found later by her grand daughter to be unresponsive. Despite the patient's family trying to wake her up, she was not opening eyes and was not following any commands. Her family checked her glucose, and it was over 100. She was brought to the ED, and she regained consciousness and is now at her baseline. There was some abnormal clint ing movement noted on the left side an the family admitted that they notice her having these shaking movements/spasms sometimes. There was a slight right facial droop that the family states is normal for her. CT scan of the head did not show any acute findings. Review of Systems - Constitutional Constitutional: As Per HPI - EENT Eyes: absent: As Per HPI, Blind Spots, Blurred Vision, Change in Vision, Decreased Night Vision, Diplopia, Discharge, Dry Eye, Exophthalmos, Floaters, Irritation, Itchy Eyes, Loss of Peripheral Vision, Pain, Photophobia, Requires Corrective Lenses, Sees Flashes, Spots in Vision, Tunnel Vision, Other Visual Disturbances, Loss of Vision, Other Ears: absent: As Per HPI, Decreased Hearing, Ear Discharge, Ear Pain, Tinnitus, Abnormal Hearing, Disequilibrium, Dizziness, Other Nose/Mouth/Throat: absent: As Per HPI, Epistaxis, Nasal Congestion, Nasal Discharge, Nasal Obstruction, Nasal Trauma, Nose Pain, Post Nasal Drip, Sinus Pain, Sinus Pressure, Bleeding Gums, Change in Voice, Dental Pain, Dry Mouth, Dysphagia, Halitosis, Hoarsness, Lip Swelling, Mouth Lesions, Mouth Pain, Odynophagia, Sore Throat, Throat Swelling, Tongue Swelling, Facial Pain, Neck Pain, Neck Mass, Other - Cardiovascular Cardiovascular: absent: As Per HPI, Acrocyanosis, Chest Pain, Chest Pain at Rest, Chest Pain with Activity, Claudication, Diaphoresis, Dyspnea, Dyspnea on Exertion, Edema, Irregular Heart Rhythm, Pain Radiating to Arm/Neck/Jaw, Leg Edema, Leg Ulcers, Lightheadedness, Orthopnea, Palpitations, Paroxysmal Nocturnal Dyspnea, Pedal Edema, Radiating Pain, Rapid Heart Rate, Slow Heart Rate, Syncope, Other - Respiratory Respiratory: absent: As Per HPI, Cough, Dyspnea, Hemoptysis, Dyspnea on Exertion, Wheezing, Snoring, Stridor, Pain on Inspiration, Chest Congestion, Excessive Mucous Production, Change in Mucous Color, Pain with Coughing, Other - Gastrointestinal Gastrointestinal: absent: As Per HPI, Abdominal Pain, Belching, Bloating, Change in Bowel Habits, Change in Stool Character, Coffee Ground Emesis, Constipation, Cramping, Diarrhea, Dyspepsia, Dysphagia, Early Satiety, Excessive Flatus, Fecal Incontinence, Heartburn, Hematemesis, Hematochezia, Loose Stools, Melena, Nausea, Odynophagia, Temesmus, Vomiting, Other - Musculoskeletal Musculoskeletal: absent: As Per HPI, Abnormal Gait, Arthralgias, Atrophy, Back Pain, Deformity, Joint Swelling, Limited Range of Motion, Loss of Height, Muscle Cramps, Muscle Weakness, Myalgias, Neck Pain, Numbness, Radiating Pain into Limb, Stiffness, Tingling, Other - Neurological Neurological: As Per HPI - Psychiatric Psychiatric: absent: As Per HPI, Abnormal Sleep Pattern, Anhedonia, Anxiety, Auditory Hallucinations, Behavioral Changes, Change in Appetite, Change in Libido, Confusion, Depression, Difficulty Concentrating, Hallucinations, Homicidal Ideation, Hopelessness, Irritability, Memory Loss, Mood Swings, Panic Attacks, Paranoia, Suicidal Ideation, Visual Hallucinations, Tactile Hallucinations, Other - Endocrine Endocrine: absent: As Per HPI, Change in Body Appearance, Change in Libido, Cold Intolorance, Deepening of Voice, Excessive Sweating, Fatigue, Flushing, Heat Intolorance, Increase in Ring/Shoe/Hat Size, Palpitations, Polydipsia, Polyphagia, Polyuria, Other Past Patient History - Infectious Disease Hx of Infectious Diseases: None - Tetanus Immunizations Tetanus Immunization: Unknown - Past Social History Smoking Status: Former Smoker - CARDIAC Hx Cardiac Disorders: Yes Hx Hypertension: Yes - PULMONARY Hx Respiratory Disorders: No - NEUROLOGICAL Hx Neurological Disorder: No - HEENT Hx HEENT Problems: No - RENAL Hx Chronic Kidney Disease: Yes Hx Dialysis: Yes (,,Sat) Date of Last Dialysis Treatment: 01/17/19 - ENDOCRINE/METABOLIC Hx Endocrine Disorders: Yes Hx Diabetes Mellitus Type 2: Yes - HEMATOLOGICAL/ONCOLOGICAL Hx Cancer: No - INTEGUMENTARY Hx Dermatological Problems: No - MUSCULOSKELETAL/RHEUMATOLOGICAL Hx Falls: No - GASTROINTESTINAL Hx Fatty Liver Disease: Yes - GENITOURINARY/GYNECOLOGICAL Hx Genitourinary Disorders: No - PSYCHIATRIC Hx Psychophysiologic Disorder: No Hx Substance Use: No - SURGICAL HISTORY Hx Mastectomy: No - ANESTHESIA Hx Anesthesia: Yes Hx Anesthesia Reactions: No Hx Malignant Hyperthermia: No Meds Allergies/Adverse Reactions: Allergies Allergy/AdvReac Type Severity Reaction Status Date / Time No Known Allergies Allergy Verified 12/23/18 11:46 - Medications Medications: Current Medications Amlodipine Besylate (Norvasc) 10 mg PO DAILY [facility] Aspirin (Ecotrin) 81 mg PO DAILY [facility] Last Admin: 01/17/19 15:27 Dose: 81 mg Atorvastatin Calcium (Lipitor) 40 mg PO DAILY [facility] Carvedilol (Coreg) 25 mg PO Q12H [facility] Last Admin: 01/17/19 15:26 Dose: 25 mg Hydralazine HCl (Apresoline) 100 mg PO Q8H [facility] Last Admin: 01/17/19 15:27 Dose: 100 mg Insulin Human Lispro (Humalog Med) 0 units SC [facility]; Protocol Physical Exam - Constitutional Appears: Well, Chronically Ill - Head Exam Head Exam: ATRAUMATIC, NORMAL INSPECTION, NORMOCEPHALIC - Eye Exam Eye Exam: EOMI, Normal appearance, PERRL Pupil Exam: NORMAL ACCOMODATION, PERRL - ENT Exam ENT Exam: Mucous Membranes Moist, Normal Exam - Neck Exam Neck exam: Positive for: Normal Inspection - Respiratory Exam Respiratory Exam: Clear to Auscultation Bilateral, NORMAL BREATHING PATTERN - Cardiovascular Exam Cardiovascular Exam: REGULAR RHYTHM, +S1, +S2 - GI/Abdominal Exam GI & Abdominal Exam: Normal Bowel Sounds, Soft. absent: Tenderness - Extremities Exam Extremities exam: Positive for: normal inspection - Back Exam Back exam: NORMAL INSPECTION - Neurological Exam Neurological exam: Alert, CN II-XII Intact, Normal Gait, Oriented x3, Reflexes Normal Additional comments: Right eye ptosis and right facial droop (chronic) - Psychiatric Exam Psychiatric exam: Normal Affect, Normal Mood - Skin Skin Exam: Dry, Intact, Normal Color, Warm Results - Vital Signs Recent Vital Signs: Last Vital Signs Temp 98.6 F 01/17/19 14:50 Pulse 71 01/17/19 15:52 Resp 19 01/17/19 15:52 BP 142/57 L 01/17/19 15:52 Pulse Ox 96 01/17/19 15:52 - Labs Result Diagrams: 01/17/19 13:05 01/17/19 13:05 Labs: Laboratory Results - last 24 hr 01/17/19 01/17/19 01/17/19 13:05 13:05 13:05 WBC 3.7 L D RBC 3.35 L Hgb 10.3 L Hct 31.6 L MCV 94.3 MCH 30.7 MCHC 32.6 RDW 15.1 H Plt Count 206 MPV 10.1 Neut % (Auto) 57.4 Lymph % (Auto) 29.5 Reynolds % (Auto) 10.9 H Eos % (Auto) 1.9 Baso % (Auto) 0.3 Lymph # (Auto) 1.1 L Reynolds # (Auto) 0.4 Eos # (Auto) 0.1 Baso # (Auto) 0.01 Absolute Neuts (auto) 2.10 PT 12.4 INR 1.10 APTT 32.2 Sodium 135 Potassium 3.8 Chloride 99 Carbon Dioxide 30 Anion Gap 9 L BUN 14 Creatinine 1.7 H Est GFR ( Amer) 36 Est GFR (Non-Af Amer) 30 Random Glucose 115 H Calcium 7.9 L Total Bilirubin 0.3 AST 43 H D ALT 22 Alkaline Phosphatase 152 H Troponin I < 0.01 Total Protein 6.0 Albumin 2.8 L Globulin 3.2 Albumin/Globulin Ratio 0.9 L Triglycerides 192 H Cholesterol 129 L LDL Cholesterol Direct 56 HDL Cholesterol 28 L Urine Color Urine Appearance Urine pH Ur Specific Mcdaniel Urine Protein Urine Glucose (UA) Urine Ketones Urine Blood Urine Nitrate Urine Bilirubin Urine Urobilinogen Ur Leukocyte Esterase Urine RBC Urine WBC Ur Epithelial Cells Urine Bacteria Blood Type Antibody Screen BBK History Checked 01/17/19 01/17/19 13:05 13:53 WBC RBC Hgb Hct MCV MCH MCHC RDW Plt Count MPV Neut % (Auto) Lymph % (Auto) Reynolds % (Auto) Eos % (Auto) Baso % (Auto) Lymph # (Auto) Reynolds # (Auto) Eos # (Auto) Baso # (Auto) Absolute Neuts (auto) PT INR APTT Sodium Potassium Chloride Carbon Dioxide Anion Gap BUN Creatinine Est GFR ( Amer) Est GFR (Non-Af Amer) Random Glucose Calcium Total Bilirubin AST ALT Alkaline Phosphatase Troponin I Total Protein Albumin Globulin Albumin/Globulin Ratio Triglycerides Cholesterol LDL Cholesterol Direct HDL Cholesterol Urine Color Yellow Urine Appearance Clear Urine pH 6.0 Ur Specific Mcdaniel 1.020 Urine Protein 100 H Urine Glucose (UA) Negative Urine Ketones Negative Urine Blood Negative Urine Nitrate Negative Urine Bilirubin Negative Urine Urobilinogen 0.2 Ur Leukocyte Esterase Moderate H Urine RBC 0 - 2 Urine WBC 25 - 30 H Ur Epithelial Cells 1 - 3 Urine Bacteria Many Blood Type O POSITIVE Antibody Screen Negative BBK History Checked Patient has bt Assessment & Plan (1) Acute encephalopathy Assessment and Plan: This may have been either a syncopal episode, or may have been a seizure. I recommend obtaining an EEG for one hour for further evaluation. Continue current medications and admit to telemetry. Cardiac consultation is also recommended. Thank you for this consultation. Status: Acute
[2019-01-17] MEDS: Insulin Lispro (humaLOG) MEDIUM Coverage SC SCH ×2 (17:30→21:49)
--- NOTE | 2019-01-17 21:28 | HP ---
DATE OF EXAM: 01/17/2019 HISTORY OF PRESENT ILLNESS: The patient is 68 years old, came to emergency room because of being lethargic. She was found to be unresponsive by her granddaughter at home and the patient did receive hemodialysis this morning and after dialysis she felt weak, but when she came home she was feeling okay, but after sometime, while she was resting, she slumped over and was not responding to verbal stimuli, so the family called ambulance and she was brought to emergency room. By the time ambulance arrived, the patient was able to communicate. She was alert to answer simple questions. No history of fevers. No chills. No nausea or vomiting. No diarrhea. PAST MEDICAL HISTORY: Significant for; 1. End-stage renal disease, on hemodialysis. 2. Hypertension. 3. Non-insulin dependent diabetes. 4. Hyperlipidemia. 5. Chronic anemia. PAST SURGICAL HISTORY: Significant for; 1. Stomach surgery. 2. Status post appendectomy. 3. Status post cholecystectomy. 4. History of back surgery. ALLERGIES: SHE IS NOT ALLERGIC TO ANY MEDICATIONS. SOCIAL HISTORY: She lives with her family. Still smokes here and there. MEDICATIONS: At home; she is on amlodipine 10 mg daily, torsemide 20 mg twice a day, nystatin powder under the breast, losartan, gabapentin, fenofibrate, vitamin D, clonidine, carvedilol, hydralazine. and atorvastatin. PHYSICAL EXAMINATION: GENERAL: The patient is fully awake, alert, oriented, and able to communicate. VITAL SIGNS: She is afebrile, pulse 65, respirations 21, and blood pressure 141/65. LUNGS: Bilateral fair airflow. No rhonchi or crackle. HEART: S1 and S2 audible. ABDOMEN: Soft and nontender. No rebound and no guarding. NEUROLOGIC: She is awake, alert, oriented, and able to communicate. LABORATORY DATA: WBC 3.7, hemoglobin 10, hematocrit 31.6, and platelet 206. PT 12.4 and INR 1.10. Chemistry; sodium 135, potassium 3.8, chloride 99, CO2 of 30, BUN 14, creatinine 1.7, blood sugar 115, and triglycerides 192. Urine shows moderate leukocytes. CT scan of the head is unremarkable. X-ray of chest is unremarkable. ASSESSMENT AND PLAN: 1. Near syncope, questionable hypoglycemia. 2. End-stage renal disease, on hemodialysis. 3. History of hypertension. 4. Non-insulin dependent diabetes. 5. Deconditioning. PLAN: The patient will be placed on observation. We will order for echocardiogram. Order for carotid Doppler. MRI of the brain was done in 12/24 and was found to be unremarkable. So we will observe for next 24 hours. She will be evaluated by turnaround engineer and we will make disposition planning in the a.m. again. Oral Thao MD
--- NOTE | 2019-01-18 07:44 | CARD ---
APPROVED REPORT Date of service: 01/17/2019 EKG Measurement Heart [id number] <Conclusion> Normal sinus rhythm Normal ECG
[2019-01-18] MEDS: Insulin Lispro (humaLOG) MEDIUM Coverage SC SCH ×4 (07:56→21:16)
--- NOTE | 2019-01-18 15:51 | CON ---
DATE OF CONSULTATION: 01/18/2019 CARDIOLOGY CONSULTATION HISTORY: The patient is a 68-year-old woman, who presents with a syncopal episode. According to daughter, the patient was sitting in a chair and became lethargic, and with decreased responsiveness, there was no fall to the ground. PAST MEDICAL HISTORY: The patient's past medical history is notable for end-stage renal disease, diabetes mellitus, obesity, hypertension, and hypercholesterolemia. The patient's cardiac history includes an echocardiogram that was done in 12/2018, which revealed good LV function. No aortic valve stenosis is noted. She denies chest pain. REVIEW OF SYSTEMS: Review of systems is free of cardiac symptoms. PHYSICAL EXAMINATION: VITAL SIGNS: Blood pressure is 149/58, the heart rate is in the 60s, normal sinus rhythm. NECK: Negative JVD. LUNGS: Without rales. CARDIAC: Heart rate S1, S2. EXTREMITIES: Without edema. EKG shows normal sinus rhythm with no acute changes. LABORATORY DATA: Troponins were negative x1. BUN and creatinine are 14 and 1.7. Hemoglobin is 10.3. IMPRESSION: 1. Near syncope. 2. Anemia. 3. Renal insufficiency. 4. History of normal left ventricular function. 5. Hypertension. 6. Diabetes mellitus. 7. Hypercholesterolemia. PLAN: Given these findings, according to the family, the patient's sugar when she became lethargic was over 100, ruling out hypoglycemic as a cause. There is no cardiac cause of her lethargy could be found. We will need to have neuro do their workup. Cullen Toscano MD
--- NOTE | 2019-01-18 20:02 | PN ---
DATE: 01/18/2019 SUBJECTIVE: The patient is a 68-year-old, seen and examined, and family by at the bedside. They noticed her to have generalized weakness. According to daughter, she has very limited mobility only with the help she herself from bed to the chair and chair to the bed. Yesterday, after dialysis, she was found to be on the verbal command and shaking, she would not wake up, so they called ambulance and she was brought to emergency room. The patient was seen and examined, sitting in chair, seems to be comfortable, communicating, and answer simple question. PHYSICAL EXAMINATION: VITAL SIGNS: She is afebrile, pulse 58, respirations 18, and blood pressure 133/65. LUNGS: Bilateral fair airflow. No rhonchi or crackle. HEART: S1 and S2 audible. ABDOMEN: Soft, obese, and nontender. No rebound. No guarding. NEUROLOGICAL: The patient is awake and alert. Able to communicate. LABORATORY DATA: Urine shows moderate leukocytes, WBC is 25 to 30. Her urine shows Gram-negative rods more than 100,000. ASSESSMENT: 1. Altered mental status. 2. End-stage renal disease, on hemodialysis. 3. Doubt cerebrovascular accident. 4. Hypertension. 5. Hyperlipidemia. 6. Probably Escherichia coli urinary tract infection. PLAN: We will start her on Rocephin. Neurology input noted and appreciated. I requested for EEG study as per Neurology recommendation. I will request for physical therapy evaluation. We will follow up echocardiogram and carotid Doppler and we will make disposition plan in a.m. Oral Thao MD
--- NOTE | 2019-01-18 20:40 | CP.PCM.PN ---
Subjective - Date & Time of Evaluation Date of Evaluation: 01/18/19 Time of Evaluation: 20:39 - Subjective Subjective: # 24 angiocath was inserted in right hand dorsum. Patient has no acute symptoms now. Vitals are stable. Objective - Vital Signs/Intake and Output Vital Signs (last 24 hours): Temp Pulse Resp BP Pulse Ox 97.3 F L 61 18 113/69 97 01/18/19 17:57 01/18/19 18:00 01/18/19 17:57 01/18/19 17:57 01/18/19 06:00 Intake and Output: 01/18/19 01/19/19 18:59 06:59 Intake Total 840 Output Total 300 Balance 540 - Medications Medications: Current Medications Amlodipine Besylate (Norvasc) 10 mg PO DAILY [facility] Last Admin: 01/18/19 09:16 Dose: 10 mg Aspirin (Ecotrin) 81 mg PO DAILY [facility] Last Admin: 01/18/19 09:16 Dose: 81 mg Atorvastatin Calcium (Lipitor) 40 mg PO DAILY [facility] Last Admin: 01/18/19 09:16 Dose: 40 mg Carvedilol (Coreg) 25 mg PO Q12 TL Last Admin: 01/18/19 09:16 Dose: 25 mg Hydralazine HCl (Apresoline) 100 mg PO Q8H [facility] Last Admin: 01/18/19 16:00 Dose: 100 mg Ceftriaxone Sodium (Rocephin 1 Gram Ivpb) 1 gm in 100 mls @ 100 mls/hr IVPB AKIL LY TL; Protocol Insulin Human Lispro (Humalog Med) 0 units SC [facility]; Protocol Last Admin: 01/18/19 17:40 Dose: 1 unit - Labs Labs: 01/17/19 13:05 01/17/19 13:05 PT 12.4 SECONDS (9.4-12.5) 01/17/19 13:05 INR 1.10 01/17/19 13:05 APTT 32.2 Seconds (26.9-38.3) 01/17/19 13:05
[2019-01-18] MEDS: cefTRIAXone 1 gm 1 GM/100 ML BAG IVPB SCH (21:15)
[2019-01-19] MEDS: Insulin Lispro (humaLOG) MEDIUM Coverage SC SCH ×4 (08:28→23:19)
[2019-01-19] MEDS: cefTRIAXone 1 gm 1 GM/100 ML BAG IVPB SCH (10:41)
--- NOTE | 2019-01-19 12:43 | PN ---
DATE: 01/19/2019 CARDIOLOGY FOLLOWUP SUBJECTIVE: The patient is without distress while resting in bed. OBJECTIVE: VITAL SIGNS: Blood pressure 129/56, heart rates in the 60s. NECK: Negative JVD. LUNGS: Without rales. HEART: S1 and S2. EXTREMITIES: Without edema. LABORATORY DATA: Hemoglobin is 10.3, BUN and creatinine is 14 and 1.7. The glucose is 115. IMPRESSION: 1. Near syncope. 2. No identifiable cardiac cause of her near syncope. 3. Diabetes. 4. Renal insufficiency. 5. Hypertension. 6. Hypercholesterolemia. PLAN: Given these findings, we will keep the patient on interactive media director for 24 hours. Cullen Toscano MD
--- NOTE | 2019-01-19 13:39 | PN ---
DATE: 01/19/2019 NO DICTATION. Cullen Toscano MD
--- NOTE | 2019-01-19 15:37 | PCM.EEG ---
Electroencephalogram Report - Electroencephalogram Report Procedure Date: 01/18/19 Medication: ASA, Amlodipine, Ceftriazone. Interpretation: Technical Information: This was a 16 -channel EEG, 1-channel EKG routine EEG performed using an [employer] machine. Electrodes were applied using the 10/20 international placement system. Start; 12;21 End; 13;15 Total 54 min Clinical Information: loss of consciousness. During resting wakefulness there was a symmetric posterior dominant rhythm at 8.5-Hz, 30-50 uV, which was reactive to eye opening and closing. Drowsiness (12;31) was associated with fragmentation of the posterior dominant rhythm and with slow roving eye movements. Light sleep was not recorded. Hyperventilation was performed and there were no changes in the record. Photic stimulation was performed and there were no changes on the record. Focal abnormality; none ECG was associated with a normal sinus rhythm. Impression: This is a normal awake and drowsy electroencephalogram.
--- NOTE | 2019-01-19 18:34 | US ---
PROCEDURE: Bilateral carotid artery duplex ultrasound HISTORY: Carotid stenosis syncope PHYSICIAN(S): Cullen Valverde MD. TECHNIQUE: Duplex sonography and color-flow Doppler were used to evaluate the carotid bifurcations and limited segments of the vertebral arteries bilaterally. FINDINGS: There is extensive heterogeneous plaque noted at the carotid bifurcations bilaterally. High resistance waveforms are noted in the right common carotid artery and right ICA origin. There appears to be a critical stenosis or occlusion of the proximal right internal carotid artery. This should be confirmed with MRA, CTA, or conventional arteriography. There is antegrade flow in the right vertebral artery. The peak systolic velocity in the proximal left internal carotid artery is 130 cm/sec. This corresponds to a 40-59 percent proximal left ICA stenosis. Moderately elevated systolic velocities are noted in the proximal left external carotid artery. The left vertebral artery is not visualized and may be occluded. IMPRESSION: 1. Occlusion versus critical stenosis of the proximal right internal carotid artery. The should be confirmed with MRA with gadolinium, CTA, or conventional arteriography if clinically indicated 2. 40-59 percent proximal left ICA stenosis. 3. Antegrade flow in the right vertebral artery. Left vertebral artery is not visualized and may be occluded
--- NOTE | 2019-01-20 00:36 | PN ---
DATE: 01/19/2019 SUBJECTIVE: The patient is a 68-year-old, seen and examined, sitting in chair, seems to be comfortable. No nausea, vomiting or diarrhea, eating and tolerating. No dizziness noted. PHYSICAL EXAMINATION: VITAL SIGNS: She is afebrile, pulse 64, respirations 20, and blood pressure 130/74. LUNGS: Bilateral fair airflow. No rhonchi or crackle. HEART: S1 and S2 audible. ABDOMEN: Soft, nontender. No rebound. No guarding. NEUROLOGIC: The patient is awake and alert. Able to communicate, has language barrier though. LABORATORY DATA: She has UTI E. coli and ESBL positive. Had EKG done showed normal LV . ASSESSMENT: 1. Status post near-syncope. 2. Extended spectrum beta-lactamase positive Escherichia coli urinary tract infection. 3. End-stage renal disease, on hemodialysis. 4. Internal carotid critical stenosis, 40% to 50% proximal left internal carotid artery stenosis. 5. Insulin-dependent diabetes. 6. Hypertension. 7. Hyperlipidemia. PLAN: We will start the patient on meropenem with Infectious Disease's input for carotid stenosis. Request for Dr. Cullen Valverde's evaluation. Therapy evaluation noted and appreciated. Recommended for subacute rehabilitation. We will discontinue telemetry for now. Oral Thao MD
[2019-01-20] MEDS: Insulin Lispro (humaLOG) MEDIUM Coverage SC SCH ×4 (08:05→22:22)
--- NOTE | 2019-01-20 09:46 | CP.PCM.CON ---
<Rossy Vidales - Last Filed: 01/20/19 15:24> History of Present Illness - History of Present Illness History of Present Illness: Podiatry Consult Note: Dr. No 68 year old female patient, with PMHx of HTN, HLD, ESRD on HD, seen and evaluated for b/l hallux nail pain with erythema. Patient resting comfortably and in NAD at this time. Patient was admitted for syncopal episode with UTI. Patient reports pain upon palpation of b/l nails. She states that they have been hurting her for a while now and not getting any better. Denies nausea/vomiting/fever/shortness of breath. PMHx: HTN, HLD, ESRD on HD ALL: NKDA Past Patient History - Infectious Disease Hx of Infectious Diseases: None - Tetanus Immunizations Tetanus Immunization: Unknown - Past Social History Smoking Status: Never Smoked - CARDIAC Hx Hypercholesterolemia: Yes Hx Hypertension: Yes - PULMONARY Hx Respiratory Disorders: No Hx Tuberculosis: Yes - NEUROLOGICAL Hx Neurological Disorder: No - HEENT Hx HEENT Problems: No - RENAL Hx Chronic Kidney Disease: Yes Hx Dialysis: Yes (Tues,Thkylie,Sat) - ENDOCRINE/METABOLIC Hx Endocrine Disorders: Yes Hx Diabetes Mellitus Type 2: Yes - HEMATOLOGICAL/ONCOLOGICAL Hx Anemia: Yes Hx Cancer: No Hx Shingles: Yes - INTEGUMENTARY Hx Dermatological Problems: No - MUSCULOSKELETAL/RHEUMATOLOGICAL Hx Falls: No - GASTROINTESTINAL Hx Gastrointestinal Disorders: No - GENITOURINARY/GYNECOLOGICAL Hx Genitourinary Disorders: No - PSYCHIATRIC Hx Psychophysiologic Disorder: No - SURGICAL HISTORY Hx Cholecystectomy: Yes Hx Mastectomy: No - ANESTHESIA Hx Anesthesia: Yes Hx Anesthesia Reactions: No Hx Malignant Hyperthermia: No Meds Allergies/Adverse Reactions: Allergies Allergy/AdvReac Type Severity Reaction Status Date / Time No Known Allergies Allergy Verified 12/23/18 11:46 - Medications Medications: Current Medications Amlodipine Besylate (Norvasc) 10 mg PO DAILY [facility] Last Admin: 01/19/19 10:40 Dose: 10 mg Aspirin (Ecotrin) 81 mg PO DAILY [facility] Last Admin: 01/19/19 10:40 Dose: 81 mg Atorvastatin Calcium (Lipitor) 40 mg PO DAILY [facility] Last Admin: 01/19/19 10:40 Dose: 40 mg Carvedilol (Coreg) 25 mg PO BID [facility] Last Admin: 01/19/19 17:51 Dose: 25 mg Hydralazine HCl (Apresoline) 100 mg PO Q8H TL Last Admin: 01/20/19 05:51 Dose: 100 mg Meropenem 250 mg/ Sodium (Chloride) 100 mls @ 100 mls/hr IVPB 0600,1800 TL; Protocol Last Admin: 01/20/19 05:51 Dose: 100 mls/hr Insulin Human Lispro (Humalog Med) 0 units SC ACHS [facility]; Protocol Last Admin: 01/20/19 08:05 Dose: Not Given Physical Exam - Constitutional Appears: Non-toxic, No Acute Distress - Extremities Exam Additional comments: B/L lower extremity exam Vascular: DP/PT 1/4, CFT < 3 seconds, TG warm to warm, mild edema noted to b/l lower extremities Ortho: Pain with palpation of medial and lateral hallux nail borders. MMT 5/5 Neuro: Gross sensation intact Derm: Ingrowing hallux nails appreciated bilaterally, mild erythema noted to distal and medial/lateral aspect of hallux bilaterally, no drainage, no purulence, no clinical signs of infection. - Neurological Exam Neurological exam: Alert, Oriented x3 - Psychiatric Exam Psychiatric exam: Normal Affect, Normal Mood Results - Vital Signs Recent Vital Signs: Last Vital Signs Temp 98.5 F 01/20/19 06:00 Pulse 66 01/20/19 06:00 Resp 20 01/20/19 06:00 BP 137/49 L 01/20/19 06:00 Pulse Ox 97 01/20/19 06:00 - Labs Result Diagrams: 01/17/19 13:05 01/17/19 13:05 Assessment & Plan - Assessment and Plan (Free Text) Assessment: 68 year old female patient, with PMHx of HTN, HLD, ESRD on HD, with b/l ingrowing hallux nails Plan: Patient seen and evaluated with Dr. No Afebrile, absent leukocytosis Right hallux nail medial border slant back performed 1.5cc of 1% lidocaine plain injected into lateral aspect of L hallux, left hallux lateral slant back performed with removal of nail from skin fold Bactroban ointment ordered to be applied to b/l hallux nails Hallux dressed with bactroban/DSD Will continue to follow Thank you for the consult - Date & Time Date: 03/05/19 Time: 09:40 <Beto No - Last Filed: 01/23/19 11:29> Meds - Medications Medications: Current Medications Acetaminophen (Tylenol 325mg Tab) 650 mg PO Q6H PRN PRN Reason: Pain, moderate (4-7) Last Admin: 01/22/19 17:22 Dose: 650 mg Amlodipine Besylate (Norvasc) 10 mg PO DAILY [facility] Last Admin: 01/23/19 09:59 Dose: 10 mg Aspirin (Ecotrin) 81 mg PO DAILY [facility] Last Admin: 01/23/19 09:59 Dose: 81 mg Atorvastatin Calcium (Lipitor) 40 mg PO DAILY [facility] Last Admin: 01/23/19 09:58 Dose: 40 mg Carvedilol (Coreg) 25 mg PO BID [facility] Last Admin: 01/23/19 09:58 Dose: 25 mg Clopidogrel Bisulfate (Plavix) 75 mg PO DAILY [facility] Last Admin: 01/23/19 09:59 Dose: 75 mg Hydralazine HCl (Apresoline) 50 mg PO Q8H [facility] Last Admin: 01/23/19 07:54 Dose: Not Given Insulin Human Lispro (Humalog Med) 0 units SC [facility]; Protocol Last Admin: 01/23/19 10:00 Dose: 1 unit Mupirocin (Bactroban Ointment) 0 gm TOP BID [facility] Last Admin: 01/21/19 17:44 Dose: 1 applic Results - Vital Signs Recent Vital Signs: Last Vital Signs Temp 99.5 F 01/23/19 06:00 Pulse 58 L 01/23/19 09:58 Resp 18 01/23/19 06:00 BP 129/69 01/23/19 09:59 Pulse Ox 97 01/23/19 06:00 - Labs Result Diagrams: 01/22/19 09:10 01/22/19 09:10 Labs: Laboratory Results - last 24 hr 01/22/19 01/22/19 01/23/19 16:26 21:22 06:35 POC Glucose (mg/dL) 90 145 H 158 H Attending/Attestation - Attestation I have personally seen and examined this patient.: Yes I have fully participated in the care of the patient.: Yes I have reviewed all pertinent clinical information: Yes
--- NOTE | 2019-01-20 12:09 | CON ---
DATE OF CONSULTATION: 01/20/2019 CHIEF COMPLAINT/HISTORY OF PRESENT ILLNESS: Ms. 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 She recently started dialysis within the past month. Dr. Thao states she has had 2-3 near syncopal and syncopal episodes in that time. Most recently, she was found unresponsive at home after dialysis. There was question of incontinence and possible seizure. Her CT scan of the head on admission was negative except for atrophy. She is currently neurologically at baseline and alert. PAST MEDICAL HISTORY: Her past medical history is significant for a carotid endarterectomy approximately 4 years ago at [facility]. Her [facility] carotid ultrasound has significant findings. She has a string sign or occlusion involving the proximal right internal carotid artery. The left internal carotid endarterectomy site is patent with mild disease. The right vertebral artery is patent. The left vertebral artery is not visualized and may be occluded. RECOMMENDATIONS: I spoke briefly with Dr. Thao. Her extracranial occlusive disease should be evaluated further. We will start with a carotid CTA. She may require an arteriogram to definitively define her anatomy. Currently, she is on a baby aspirin. I will add Plavix. Cullen Valverde MD MTDD
[2019-01-20] MEDS ORDERED: Iohexol 350 MG/100 ML VIAL ONE (12:28)
--- NOTE | 2019-01-20 12:45 | CON ---
DATE OF CONSULTATION: 01/20/2019 The patient is seen in room 264, bed 1, earlier this morning. CHIEF COMPLAINT: Weakness times several days. HISTORY OF PRESENT ILLNESS: This is a 68-year-old female with a history of hypertension, high cholesterol, diabetes, group B strep, and ESBL E. coli urinary tract infection, right pyelonephritis, zoster, history of Enterococcus bacteremia, history of MRSE bacteremia, renal disease on hemodialysis, history of left otomastoiditis, who is admitted with weakness and diagnosis of syncope. Infectious Disease consultation requested. The patient states that she has no dysuria. She has no frequency. No chest pain at this time. No nausea or vomiting. No abdominal pain or diarrhea. No neck. No back pain or new back pain. REVIEW OF SYSTEMS: Reveals a 12-point review systems is performed. PAST MEDICAL HISTORY: Significant for urinary tract infections with group B strep and ESBL E. coli, right pyelonephritis, zoster, Enterococcus bacteremia, MRSE bacteremia, chronic renal failure on hemodialysis, and obesity with a BMI of 35. PAST SURGICAL HISTORY: Significant for thyroid surgery and cholecystectomy. ALLERGIES: THE PATIENT HAS NO KNOWN ALLERGIES. MEDICATIONS: Medications at home include the patient to have Norvasc, nystatin, and Neurontin. PHYSICAL EXAMINATION: GENERAL: The patient is in bed, in no acute distress. VITAL SIGNS: Temperature of 98, blood pressure is 120/50, respiratory rate of 20 and it was up to 21 on admission, and a heart rate is noted. HEENT: Examination of HEENT is unremarkable. NECK: Supple. LUNGS: Have decreased breath sounds. HEART: Normal S1, S2. ABDOMEN: Soft, nontender. LABORATORY DATA: Laboratory examination reveals a white count of 3.7, hemoglobin of 10, and platelets of 206. Chemistries reveal the creatinine is 1.7, glucose is 115. Urinalysis is noted, 25-30 wbc's, many bacteria, 100 protein. There is positive leukocyte esterase and microbiology reveals E. Coli, ESBL in the urine. The blood culture is negative, and Dr. Cullen Toscano's progress note is reviewed from yesterday. ASSESSMENT AND PLAN: A 68-year-old female admitted with systemic inflammatory response syndrome with a respiratory rate of 21 and white count of 3.7. At this time, she has asymptomatic extended spectrum beta-lactamases Escherichia colitis urinary tract infection, and I empirically had started on meropenem yesterday. We will repeat the urinalysis and urine culture today. Most likely, we will continue to observe the patient. We will discontinue the meropenem within the next 24 hours. Since the patient has no urinary symptoms. Nicolas Martin MD
[2019-01-20] MEDS: Mupirocin 2% Ointment 15 GM TUBE TOP SCH ×2 (13:00→19:05)
[2019-01-20 13:39] LABS: PH,URINE 6.5 (4.7-8.0); URINE BILIRUBIN NEGATIVE (NEGATIVE); URINE BLOOD NEGATIVE (NEGATIVE); URINE GLUCOSE (UA) 100 mg/dL (NEGATIVE); URINE LEUKOCYTE ESTERASE MODERATE Leu/uL (NEGATIVE); URINE PROTEIN 100 mg/dL (<30 mg/dL); URINE UROBILINOGEN 0.2 E.U./dL (<1 E.U./dL)
[2019-01-20 13:49] LABS: URINE APPEARANCE SLIGHT-CLOUDY (CLEAR); URINE COLOR YELLOW (YELLOW)
--- NOTE | 2019-01-20 14:08 | CT ---
Date of service: 01/20/2019 PROCEDURE: CT Angiography of the neck with contrast HISTORY: rt carotid string vs. occl. left vert occlusion. COMPARISON: None. TECHNIQUE: Contiguous axial images of the neck were obtained from the level of the skull-base to the superior mediastinum in the arteriographic phase of enhancement. Coronal and sagittal reformats or also generated. IV contrast dose: 100 cc of Omni 350 Radiation dose: Total exam DLP = 623.0 mGy-cm. This CT exam was performed using one or more of the following dose reduction techniques: Automated exposure control, adjustment of the mA and/or kV according to patient size, and/or use of iterative reconstruction technique. FINDINGS: RIGHT CAROTID ARTERIES: Common Carotid Artery: Normal. Carotid Bifurcation: Normal. Internal Carotid Artery:There is a calcified plaque at the origin of the right internal carotid artery with a mild degree of stenosis External Carotid Artery (proximal branches): Normal. LEFT CAROTID ARTERIES: Common Carotid Artery: There is a mild stenosis in the distal left common carotid artery. The degree of stenosis is less than 50 percent Carotid Bifurcation: Normal. Internal Carotid Artery:There is a mild contour irregularity of the internal carotid with no significant stenosis External Carotid Artery (proximal branches): Normal. VERTEBRAL ARTERIES: Right Vertebral Artery: Dominant right vertebral Left Vertebral Artery: Small caliber left vertebral OTHER FINDINGS: Calcified plaque is seen in the aortic arch and the origin of the great vessels IMPRESSION: There is a calcified plaque at the origin of the right internal carotid artery with a mild degree of stenosis There is a mild stenosis in the distal left common carotid artery. The degree of stenosis is less than 50 percent Dominant right vertebral artery. Small caliber left vertebral.
[2019-01-20 14:24] LABS: URINE BACTERIA MANY /hpf; URINE RBC 0 - 2 /hpf (0-2); URINE WBC TNTC /hpf (0-6)
--- NOTE | 2019-01-20 15:32 | PN ---
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 Offers no complaint. Eating and tolerating. PHYSICAL EXAMINATION: VITAL SIGNS: She is afebrile. Pulse 64, respiration 18 and blood pressure 142/55. LUNGS: Bilateral fair airflow. No rhonchi or crackle. HEART: S1 and S2, audible. ABDOMEN: Nontender. No rebound. No guarding. NEUROLOGIC: The patient is awake, alert and able to communicate. No focal deficit. LABORATORY DATA: Urine is positive, ESBL positive E. coli UTI. Her EEG is negative. Carotid Doppler shows critical stenosis, right internal carotid artery however is on the 40-59%, proximal left ICA that she has previous intervention done many many years ago as per daughter. ASSESSMENT AND PLAN: Multiple episode of near syncope secondary to multiple reasons out of them, 1. Recently started dialysis. 2. Probably carotid stenosis and also having the urinary tract infection. So she is being treated for urinary tract infection. I spoke to Dr. Cullen Valverde, he will order for CTA and then we will decide if she need any intervention and the patient is getting dialysis today and we will make further plan according to CTA report. I spoke to daughter about rehab. She is not interested. She is . Oral Thao MD
[2019-01-20 15:42] LABS: HEMOGLOBIN 8.7 g/dL (12.0-16.0); MEAN CELL VOLUME 94.3 fl (80.0-105.0); MEAN CORPUSCULAR HEMOGLOBIN 30.7 pg (25.0-35.0); MEAN CORPUSCULAR HGB CONC 32.6 g/dl (31.0-37.0); MEAN PLATELET VOLUME 10.3 fl (7.0-11.0); RBC 2.83 10^6/uL (3.5-6.1); RED CELL DISTRIBUTION WIDTH 14.8 % (11.5-14.5); WHITE BLOOD COUNT 3.5 10^3/uL (4.5-11.0)
[2019-01-20 16:12] LABS: ALB/GLOB RATIO 0.8 (1.1-1.8); ALBUMIN 2.3 g/dL (3.0-4.8); ALT/SGPT 14 U/L (7-56); AST/SGOT 28 U/L (14-36); BLOOD UREA NITROGEN 45 mg/dL (7-21); CALCIUM 7.4 mg/dL (8.4-10.5); GFR NON-AFRICAN AMERICAN 11
[2019-01-20] MEDS ORDERED: Darbepoetin Alfa 60 mcg/ml Inj IVP ONE (16:24)
--- NOTE | 2019-01-20 18:55 | PN ---
DATE: 01/20/2019 SUBJECTIVE: The patient is in no acute distress. PHYSICAL EXAMINATION: VITAL SIGNS: Blood pressure 142/55, the heart rate is in the 60s. NECK: Negative JVD. LUNGS: No rales noted. HEART: Reveals S1 and S2. EXTREMITIES: Without change. DIAGNOSTIC DATA: Laboratories were not drawn today. IMPRESSION: 1. Status post unresponsiveness. 2. End-stage renal disease. 3. Hypertension. 4. Good left ventricular function on recent echocardiogram with no left ventricular outflow obstruction. 5. Diabetes mellitus. 6. Hypertension. 7. Hypercholesterolemia. PLAN: Given these findings, awaiting neuro completion of workup. There is no cardiac cause of her loss of consciousness. Cullen Toscano MD
--- NOTE | 2019-01-20 19:36 | CP.PCM.CON ---
<CamilleSarthak - Last Filed: 01/20/19 19:30> History of Present Illness - History of Present Illness History of Present Illness: Nephrology consult note - Camille PGY - 2 Reason for consult: ESRD on HD 68 F with pertinent medical history of DM2 and CKD on HD presented on 01/17 with altered mental status. Patient has several recent visits for fatigue and AMS 2/2 UTI and hypoglycemia. Throughout her hospital course, patient was found to have ESBL resistant E. Coli UTI. She had the same U Cx two visits ago. Today, patient denies any acute complaints with family at bedside. We are on consult for HD. Review of systems: 12 point ROS obtained and negative except as per HPI PMH: DM2, CKD stage IV (diabetic), HTN, anemia (ACD, CKD), fatty liver, UTI and obesity PSH: Stomach tumor removal, appendectomy, cholecystectomy, thyroid surgery, back surgery Meds: Reviewed on JAN Allergies: NKDA SHx: Previous history of light smoking FHx: Father: DM2 Past Patient History - Infectious Disease Hx of Infectious Diseases: None - Tetanus Immunizations Tetanus Immunization: Unknown - Past Social History Smoking Status: Never Smoked - CARDIAC Hx Hypercholesterolemia: Yes Hx Hypertension: Yes - PULMONARY Hx Respiratory Disorders: No Hx Tuberculosis: Yes - NEUROLOGICAL Hx Neurological Disorder: No - HEENT Hx HEENT Problems: No - RENAL Hx Chronic Kidney Disease: Yes Hx Dialysis: Yes (,,Sat) - ENDOCRINE/METABOLIC Hx Endocrine Disorders: Yes Hx Diabetes Mellitus Type 2: Yes - HEMATOLOGICAL/ONCOLOGICAL Hx Anemia: Yes Hx Cancer: No Hx Shingles: Yes - INTEGUMENTARY Hx Dermatological Problems: No - MUSCULOSKELETAL/RHEUMATOLOGICAL Hx Falls: No - GASTROINTESTINAL Hx Gastrointestinal Disorders: No - GENITOURINARY/GYNECOLOGICAL Hx Genitourinary Disorders: No - PSYCHIATRIC Hx Psychophysiologic Disorder: No - SURGICAL HISTORY Hx Cholecystectomy: Yes Hx Mastectomy: No - ANESTHESIA Hx Anesthesia: Yes Hx Anesthesia Reactions: No Hx Malignant Hyperthermia: No Meds Allergies/Adverse Reactions: Allergies Allergy/AdvReac Type Severity Reaction Status Date / Time No Known Allergies Allergy Verified 12/23/18 11:46 - Medications Medications: Current Medications Amlodipine Besylate (Norvasc) 10 mg PO DAILY [facility] Last Admin: 01/20/19 19:06 Dose: 10 mg Aspirin (Ecotrin) 81 mg PO DAILY [facility] Last Admin: 01/20/19 19:05 Dose: 81 mg Atorvastatin Calcium (Lipitor) 40 mg PO DAILY [facility] Last Admin: 01/20/19 19:06 Dose: 40 mg Carvedilol (Coreg) 25 mg PO BID [facility] Last Admin: 01/20/19 19:05 Dose: 25 mg Clopidogrel Bisulfate (Plavix) 75 mg PO DAILY [facility] Last Admin: 01/20/19 19:04 Dose: 75 mg Hydralazine HCl (Apresoline) 100 mg PO Q8H [facility] Last Admin: 01/20/19 19:05 Dose: Not Given Meropenem 250 mg/ Sodium (Chloride) 100 mls @ 100 mls/hr IVPB 0600,1800 [facility]; Protocol Last Admin: 01/20/19 05:51 Dose: 100 mls/hr Insulin Human Lispro (Humalog Med) 0 units SC ACHS [facility]; Protocol Last Admin: 01/20/19 19:06 Dose: Not Given Mupirocin (Bactroban Ointment) 0 gm TOP BID [facility] Last Admin: 01/20/19 19:05 Dose: 1 applic Physical Exam - Constitutional Appears: Well - Head Exam Head Exam: ATRAUMATIC, NORMAL INSPECTION, NORMOCEPHALIC - Eye Exam Eye Exam: EOMI, Normal appearance, PERRL Pupil Exam: NORMAL ACCOMODATION, PERRL - ENT Exam ENT Exam: Mucous Membranes Moist, Normal Exam - Neck Exam Neck exam: Positive for: Normal Inspection - Respiratory Exam Respiratory Exam: Clear to Auscultation Bilateral, NORMAL BREATHING PATTERN - Cardiovascular Exam Cardiovascular Exam: REGULAR RHYTHM - GI/Abdominal Exam GI & Abdominal Exam: Normal Bowel Sounds, Soft. absent: Tenderness - Extremities Exam Extremities exam: Positive for: normal inspection - Back Exam Back exam: NORMAL INSPECTION - Neurological Exam Neurological exam: Alert, CN II-XII Intact, Normal Gait, Oriented x3, Reflexes Normal - Psychiatric Exam Psychiatric exam: Normal Affect, Normal Mood - Skin Skin Exam: Dry, Intact, Normal Color, Warm Results - Vital Signs Recent Vital Signs: Last Vital Signs Temp 98.3 F 01/20/19 12:00 Pulse 64 01/20/19 19:05 Resp 18 01/20/19 12:00 BP 125/53 L 01/20/19 19:06 Pulse Ox 97 01/20/19 06:00 - Labs Result Diagrams: 01/20/19 14:00 01/20/19 14:00 Labs: Laboratory Results - last 24 hr 01/20/19 01/20/19 01/20/19 12:30 12:30 13:15 WBC RBC Hgb Hct MCV MCH MCHC RDW Plt Count MPV Sodium Potassium Chloride Carbon Dioxide Anion Gap BUN Creatinine Est GFR ( Amer) Est GFR (Non-Af Amer) Random Glucose Calcium Phosphorus Magnesium Total Bilirubin AST ALT Alkaline Phosphatase Total Protein Albumin Globulin Albumin/Globulin Ratio Urine Color Yellow Urine Appearance Slight-cloudy Urine pH 6.5 Ur Specific Coker 1.020 Urine Protein 100 H Urine Glucose (UA) 100 H Urine Ketones Negative Urine Blood Negative Urine Nitrate Negative Urine Bilirubin Negative Urine Urobilinogen 0.2 Ur Leukocyte Esterase Moderate H Urine RBC 0 - 2 Urine WBC Tntc H Ur Epithelial Cells 6 - 8 H Urine Bacteria Many Hep Bs Antigen Negative Hep Bs Antibody Negative 01/20/19 01/20/19 14:00 14:00 WBC 3.5 L RBC 2.83 L Hgb 8.7 L Hct 26.7 L MCV 94.3 MCH 30.7 MCHC 32.6 RDW 14.8 H Plt Count 217 MPV 10.3 Sodium 129 L Potassium 4.0 Chloride 98 Carbon Dioxide 27 Anion Gap 8 L BUN 45 H Creatinine 3.9 H Est GFR ( Amer) 14 Est GFR (Non-Af Amer) 11 Random Glucose 139 H Calcium 7.4 L Phosphorus 4.4 Magnesium 1.7 Total Bilirubin < 0.1 L AST 28 ALT 14 Alkaline Phosphatase 107 Total Protein 5.1 L Albumin 2.3 L Globulin 2.8 Albumin/Globulin Ratio 0.8 L Urine Color Urine Appearance Urine pH Ur Specific Coker Urine Protein Urine Glucose (UA) Urine Ketones Urine Blood Urine Nitrate Urine Bilirubin Urine Urobilinogen Ur Leukocyte Esterase Urine RBC Urine WBC Ur Epithelial Cells Urine Bacteria Hep Bs Antigen Hep Bs Antibody Assessment & Plan - Assessment and Plan (Free Text) Assessment: Assessment and Plan (1) ESRD on hemodialysis Assessment & Plan: Stable electrolyte status with mild hypokalemia. Bilateral LE edema, but lungs are clear. - Continue Torsemide, Sevalamer - Advise patient on fluid restriction - HD today per schedule - Pending AV Fistula placement - Avoid nephrotoxic agents Status: Chronic (2) Hypertensive CKD, ESRD on dialysis Assessment & Plan: - Continue Losartan, Norvasc, Coreg, Hydralazine and Clonidine patch Status: Chronic (3) Anemia Assessment & Plan: H/H below goal for CKD (8.7 today; goal of 10-11) - Aranesp as needed Status: Chronic (4) Chronic kidney disease-mineral and bone disorder Assessment & Plan: - Sevalamer with meals Status: Chronic (5) Nephrotic syndrome Assessment & Plan: - Continue HD Status: Chronic (6) Hyponatremia Mild - Monitor; continue with HD Status: Acute <Darron Santiago - Last Filed: 01/21/19 08:37> Meds - Medications Medications: Current Medications Amlodipine Besylate (Norvasc) 10 mg PO DAILY [facility] Last Admin: 01/20/19 19:06 Dose: 10 mg Aspirin (Ecotrin) 81 mg PO DAILY [facility] Last Admin: 01/20/19 19:05 Dose: 81 mg Atorvastatin Calcium (Lipitor) 40 mg PO DAILY [facility] Last Admin: 01/20/19 19:06 Dose: 40 mg Carvedilol (Coreg) 25 mg PO BID [facility] Last Admin: 01/20/19 19:05 Dose: 25 mg Clopidogrel Bisulfate (Plavix) 75 mg PO DAILY [facility] Last Admin: 01/20/19 19:04 Dose: 75 mg Hydralazine HCl (Apresoline) 100 mg PO Q8H [facility] Last Admin: 01/21/19 05:53 Dose: 100 mg Meropenem 250 mg/ Sodium (Chloride) 100 mls @ 100 mls/hr IVPB 0600,1800 [facility]; Protocol Last Admin: 01/21/19 05:52 Dose: 100 mls/hr Insulin Human Lispro (Humalog Med) 0 units SC ACHS [facility]; Protocol Last Admin: 01/20/19 22:22 Dose: Not Given Mupirocin (Bactroban Ointment) 0 gm TOP BID [facility] Last Admin: 01/20/19 19:05 Dose: 1 applic Results - Vital Signs Recent Vital Signs: Last Vital Signs Temp 98.5 F 01/21/19 07:45 Pulse 59 L 01/21/19 07:45 Resp 18 01/21/19 07:45 BP 121/71 01/21/19 07:45 Pulse Ox 95 01/21/19 07:45 - Labs Result Diagrams: 01/20/19 14:00 01/20/19 14:00 Labs: Laboratory Results - last 24 hr 01/20/19 01/20/19 01/20/19 12:30 12:30 13:15 WBC RBC Hgb Hct MCV MCH MCHC RDW Plt Count MPV Sodium Potassium Chloride Carbon Dioxide Anion Gap BUN Creatinine Est GFR ( Amer) Est GFR (Non-Af Amer) POC Glucose (mg/dL) Random Glucose Calcium Phosphorus Magnesium Total Bilirubin AST ALT Alkaline Phosphatase Total Protein Albumin Globulin Albumin/Globulin Ratio Urine Color Yellow Urine Appearance Slight-cloudy Urine pH 6.5 Ur Specific Coker 1.020 Urine Protein 100 H Urine Glucose (UA) 100 H Urine Ketones Negative Urine Blood Negative Urine Nitrate Negative Urine Bilirubin Negative Urine Urobilinogen 0.2 Ur Leukocyte Esterase Moderate H Urine RBC 0 - 2 Urine WBC Tntc H Ur Epithelial Cells 6 - 8 H Urine Bacteria Many Hep Bs Antigen Negative Hep Bs Antibody Negative 01/20/19 01/20/19 01/20/19 14:00 14:00 21:15 WBC 3.5 L RBC 2.83 L Hgb 8.7 L Hct 26.7 L MCV 94.3 MCH 30.7 MCHC 32.6 RDW 14.8 H Plt Count 217 MPV 10.3 Sodium 129 L Potassium 4.0 Chloride 98 Carbon Dioxide 27 Anion Gap 8 L BUN 45 H Creatinine 3.9 H Est GFR ( Amer) 14 Est GFR (Non-Af Amer) 11 POC Glucose (mg/dL) 145 H Random Glucose 139 H Calcium 7.4 L Phosphorus 4.4 Magnesium 1.7 Total Bilirubin < 0.1 L AST 28 ALT 14 Alkaline Phosphatase 107 Total Protein 5.1 L Albumin 2.3 L Globulin 2.8 Albumin/Globulin Ratio 0.8 L Urine Color Urine Appearance Urine pH Ur Specific Coker Urine Protein Urine Glucose (UA) Urine Ketones Urine Blood Urine Nitrate Urine Bilirubin Urine Urobilinogen Ur Leukocyte Esterase Urine RBC Urine WBC Ur Epithelial Cells Urine Bacteria Hep Bs Antigen Hep Bs Antibody 01/21/19 06:35 WBC RBC Hgb Hct MCV MCH MCHC RDW Plt Count MPV Sodium Potassium Chloride Carbon Dioxide Anion Gap BUN Creatinine Est GFR ( Amer) Est GFR (Non-Af Amer) POC Glucose (mg/dL) 107 Random Glucose Calcium Phosphorus Magnesium Total Bilirubin AST ALT Alkaline Phosphatase Total Protein Albumin Globulin Albumin/Globulin Ratio Urine Color Urine Appearance Urine pH Ur Specific Coker Urine Protein Urine Glucose (UA) Urine Ketones Urine Blood Urine Nitrate Urine Bilirubin Urine Urobilinogen Ur Leukocyte Esterase Urine RBC Urine WBC Ur Epithelial Cells Urine Bacteria Hep Bs Antigen Hep Bs Antibody Attending/Attestation - Attestation I have personally seen and examined this patient.: Yes I have fully participated in the care of the patient.: Yes I have reviewed all pertinent clinical information: Yes Notes (Text): Patient seen and examined; I agree with the resident's note as above with the following additions/edits: 68 yo F w/ pmh of htn, DM and newly deemed ESRD on HD (secondary to biopsy proven diabetic nephropathy with nephrotic syndrome, HD being managed by our outpatient service, TTS at [facility]), admitted with AMS, nephrology being consulted for ESRD care; This herndon patient's third presentation for AMS in the past month; first time was last month and thought to have been due to UTI; patient was treated with meropenem for 7 days for E coli ESBL; patient was also briefly admitted last week in the setting of hypoglycemia; on this present admission, patient once again found to have E coli ESBL in urine although she denies any urinary sympto ms; she still has significant residual renal function and continues to urinate several times per day; Otherwise relatively stable electrolyte status (mild hyponatremia noted, will encourage PO fluid restriction); lower extremity edema has improved, stable respiratory status (of note, 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 Thank you for this referral, we will be following closely.
[2019-01-21] MEDS: Mupirocin 2% Ointment 15 GM TUBE TOP SCH ×2 (10:02→17:44)
--- NOTE | 2019-01-21 10:54 | CP.PCM.PN ---
Subjective - Date & Time of Evaluation Date of Evaluation: 01/21/19 Time of Evaluation: 10:47 - Subjective Subjective: Podiatry Consult Note: Dr. Schrader 68 year old female patient seen and evaluated this AM for b/l hallux nail pain with erythema. Patient resting comfortable and in NAD. She reports less pain compared to yesterday now that her nail was removed from the corner. Denies nausea/vomiting/fever/chill. Objective - Vital Signs/Intake and Output Vital Signs (last 24 hours): Temp Pulse Resp BP Pulse Ox 98.5 F 59 L 18 121/71 95 01/21/19 07:45 01/21/19 10:01 01/21/19 07:45 01/21/19 10:01 01/21/19 07:45 Intake and Output: 01/21/19 01/21/19 06:59 18:59 Intake Total 240 Balance 240 - Medications Medications: Current Medications Amlodipine Besylate (Norvasc) 10 mg PO DAILY [facility] Last Admin: 01/21/19 10:01 Dose: 10 mg Aspirin (Ecotrin) 81 mg PO DAILY [facility] Last Admin: 01/21/19 10:01 Dose: 81 mg Atorvastatin Calcium (Lipitor) 40 mg PO DAILY [facility] Last Admin: 01/21/19 10:00 Dose: 40 mg Carvedilol (Coreg) 25 mg PO BID [facility] Last Admin: 01/21/19 10:01 Dose: 25 mg Clopidogrel Bisulfate (Plavix) 75 mg PO DAILY [facility] Last Admin: 01/21/19 10:00 Dose: 75 mg Hydralazine HCl (Apresoline) 100 mg PO Q8H [facility] Last Admin: 01/21/19 05:53 Dose: 100 mg Insulin Human Lispro (Humalog Med) 0 units SC [facility]; Protocol Last Admin: 01/20/19 22:22 Dose: Not Given Mupirocin (Bactroban Ointment) 0 gm TOP BID [facility] Last Admin: 01/21/19 10:02 Dose: 1 applic - Labs Labs: 01/20/19 14:00 01/20/19 14:00 PT 12.4 SECONDS (9.4-12.5) 01/17/19 13:05 INR 1.10 01/17/19 13:05 APTT 32.2 Seconds (26.9-38.3) 01/17/19 13:05 - Constitutional Appears: Non-toxic, No Acute Distress - Head Exam Head Exam: ATRAUMATIC, NORMOCEPHALIC - Extremities Exam Additional comments: B/L lower extremity exam Vascular: DP/PT 1/4, CFT < 3 seconds, TG warm to warm, mild edema noted to b/l lower extremities Ortho: Tenderness with palpation of medial and lateral hallux nail borders. MMT 5/5 Neuro: Gross sensation intact Derm: Mild erythema noted to distal and medial/lateral aspect of hallux bilaterally, no drainage, no purulence, no clinical signs of infection. - Neurological Exam Neurological Exam: Alert, Awake - Psychiatric Exam Psychiatric exam: Normal Affect, Normal Mood Assessment and Plan - Assessment and Plan (Free Text) Assessment: 68 year old female patient with b/l ingrowing hallux nails; removed and stable at this time Plan: Patient seen and evaluated Discussed with Dr. Schrader Afebrile, absent leukocytosis Bactroban and dressing applied to b/l hallux nails Stable from podiatry standpoint at this time Will continue to follow while patient is in house
[2019-01-21] MEDS: Insulin Lispro (humaLOG) MEDIUM Coverage SC SCH ×4 (12:13→22:16)
--- NOTE | 2019-01-21 13:00 | PN ---
DATE: 01/21/2019 SUBJECTIVE: The patient is in bed in no acute distress, nontoxic. PHYSICAL EXAMINATION: VITAL SIGNS: Temperature 98, blood pressure 121/70, respiratory rate 18. HEENT: Examination of HEENT is unremarkable. NECK: Supple. LUNGS: Decreased breath sounds. HEART: Normal S1, S2. ABDOMEN: Soft. LABORATORY DATA: Laboratory examination reveals a white count of 3.5, hemoglobin of 8, platelets of 217. Chemistries reveals a BUN of 45, creatinine of 3.9. Urinalysis is noted. Review of orders reveals the patient to be on meropenem. Microbiology reveals Escherichia coli in the urine. ASSESSMENT AND PLAN: This is a 68-year-old female admitted with systemic inflammatory response syndrome, asymptomatic urinary tract infection with extended-spectrum beta-lactamases, Escherichia coli, now with acute kidney injury on top of chronic kidney injury, probably related to contrast. Dr. Santiago's renal consultation is appreciated. We will discontinue the meropenem. We will order urine for eosinophils. I doubt the meropenem to be the cause of the acute renal failure. The patient with end-stage renal disease, on hemodialysis, worsening renal function. No further antibiotics at this point. We will discontinue meropenem and check on the repeat urinalysis and urine culture. This is an asymptomatic urinary tract infection, not requiring treatment Nicolas Martin MD
--- NOTE | 2019-01-21 17:02 | CP.PCM.PN ---
<CamilleSarthak - Last Filed: 01/21/19 18:52> Subjective - Date & Time of Evaluation Date of Evaluation: 01/21/19 Time of Evaluation: 18:50 - Subjective Subjective: Nephrology progress note - Camille PGY - 2 Patient seen and examined at bedside. No acute overnight events. Patient doing well. Objective - Vital Signs/Intake and Output Vital Signs (last 24 hours): Temp Pulse Resp BP Pulse Ox 97.7 F 58 L 18 100/52 L 98 01/21/19 16:18 01/21/19 16:18 01/21/19 16:18 01/21/19 16:18 01/21/19 16:18 Intake and Output: 01/21/19 01/21/19 06:59 18:59 Intake Total 240 Balance 240 - Medications Medications: Current Medications Amlodipine Besylate (Norvasc) 10 mg PO DAILY [facility] Last Admin: 01/21/19 10:01 Dose: 10 mg Aspirin (Ecotrin) 81 mg PO DAILY [facility] Last Admin: 01/21/19 10:01 Dose: 81 mg Atorvastatin Calcium (Lipitor) 40 mg PO DAILY [facility] Last Admin: 01/21/19 10:00 Dose: 40 mg Carvedilol (Coreg) 25 mg PO BID [facility] Last Admin: 01/21/19 10:01 Dose: 25 mg Clopidogrel Bisulfate (Plavix) 75 mg PO DAILY [facility] Last Admin: 01/21/19 10:00 Dose: 75 mg Hydralazine HCl (Apresoline) 100 mg PO Q8H [facility] Last Admin: 01/21/19 05:53 Dose: 100 mg Insulin Human Lispro (Humalog Med) 0 units SC [facility]; Protocol Last Admin: 01/21/19 12:14 Dose: Not Given Mupirocin (Bactroban Ointment) 0 gm TOP BID [facility] Last Admin: 01/21/19 10:02 Dose: 1 applic - Labs Labs: 01/20/19 14:00 01/20/19 14:00 PT 12.4 SECONDS (9.4-12.5) 01/17/19 13:05 INR 1.10 01/17/19 13:05 APTT 32.2 Seconds (26.9-38.3) 01/17/19 13:05 - Constitutional Appears: Well - Head Exam Head Exam: ATRAUMATIC, NORMAL INSPECTION, NORMOCEPHALIC - Eye Exam Eye Exam: EOMI, Normal appearance, PERRL Pupil Exam: NORMAL ACCOMODATION, PERRL - ENT Exam ENT Exam: Mucous Membranes Moist, Normal Exam - Neck Exam Neck Exam: Full ROM, Normal Inspection. absent: Lymphadenopathy - Respiratory Exam Respiratory Exam: Clear to Ausculation Bilateral, NORMAL BREATHING PATTERN - Cardiovascular Exam Cardiovascular Exam: REGULAR RHYTHM, +S1, +S2. absent: Murmur - GI/Abdominal Exam GI & Abdominal Exam: Soft, Normal Bowel Sounds. absent: Tenderness - Extremities Exam Extremities Exam: Full ROM, Normal Capillary Refill, Normal Inspection. absent: Joint Swelling, Pedal Edema - Back Exam Back Exam: NORMAL INSPECTION - Neurological Exam Neurological Exam: Alert, Awake, CN II-XII Intact, Normal Gait, Oriented x3 - Psychiatric Exam Psychiatric exam: Normal Affect, Normal Mood - Skin Skin Exam: Dry, Intact, Normal Color, Warm Assessment and Plan - Assessment and Plan (Free Text) Assessment: Assessment and Plan (1) ESRD on hemodialysis Assessment & Plan: Stable electrolyte status with mild hyponatremia ystdy. Bilateral LE edema, but lungs are clear. - Continue Torsemide, Sevalamer - Advise patient on fluid restriction - HD tomorrow per schedule - Pending AV Fistula placement - Avoid nephrotoxic agents Status: Chronic (2) Hypertensive CKD, ESRD on dialysis Assessment & Plan: Patient doing well on HTN regimen without clonidine since starting HD - Continue Norvasc, Coreg, Hydralazine Status: Chronic (3) Anemia Assessment & Plan: H/H below goal for CKD (8.7 yesterday; goal of 10-11) - Aranesp 60 was dosed on HD ystdy Status: Chronic (4) Chronic kidney disease-mineral and bone disorder Assessment & Plan: - Sevalamer with meals Status: Chronic (5) Nephrotic syndrome Assessment & Plan: - Continue HD Status: Chronic (6) Hyponatremia Mild - Monitor; continue with HD Status: Acute <Darron Santiago - Last Filed: 01/22/19 08:20> Objective - Vital Signs/Intake and Output Vital Signs (last 24 hours): Temp Pulse Resp BP Pulse Ox 98.4 F 65 18 147/50 L 93 L 01/21/19 21:01 01/21/19 22:16 01/21/19 21:01 01/21/19 22:16 01/21/19 21:01 Intake and Output: 01/22/19 01/22/19 06:59 18:59 Intake Total 600 Balance 600 - Medications Medications: Current Medications Amlodipine Besylate (Norvasc) 10 mg PO DAILY [facility] Last Admin: 01/21/19 10:01 Dose: 10 mg Aspirin (Ecotrin) 81 mg PO DAILY [facility] Last Admin: 01/21/19 10:01 Dose: 81 mg Atorvastatin Calcium (Lipitor) 40 mg PO DAILY [facility] Last Admin: 01/21/19 10:00 Dose: 40 mg Carvedilol (Coreg) 25 mg PO BID [facility] Last Admin: 01/21/19 17:50 Dose: Not Given Clopidogrel Bisulfate (Plavix) 75 mg PO DAILY [facility] Last Admin: 01/21/19 10:00 Dose: 75 mg Hydralazine HCl (Apresoline) 50 mg PO Q8H [facility] Insulin Human Lispro (Humalog Med) 0 units SC [facility]; Protocol Last Admin: 01/21/19 22:16 Dose: Not Given Mupirocin (Bactroban Ointment) 0 gm TOP BID [facility] Last Admin: 01/21/19 17:44 Dose: 1 applic - Labs Labs: 01/20/19 14:00 01/20/19 14:00 PT 12.4 SECONDS (9.4-12.5) 01/17/19 13:05 INR 1.10 01/17/19 13:05 APTT 32.2 Seconds (26.9-38.3) 01/17/19 13:05 Attending/Attestation - Attestation I have personally seen and examined this patient.: Yes I have fully participated in the care of the patient.: Yes I have reviewed all pertinent clinical information, including history, physical exam and plan: Yes Notes (Text): Patient seen and examined; I agree with the resident's note as above with the following additions/edits: 68 yo F w/ pmh of htn, DM and newly deemed ESRD on HD, admitted with transient altered mental status; Patient reports feeling well; no dyspnea; stable volume status on exam with no increased FIO2 requirement; pre-HD labs yesterday relatively stable; HTN of ESRD, improving with volume management on HD; low DBP noted, will decrease hydralazine to 50 mg q8h (losartan already being held); Anemia of CKD, s/p dose of aranesp yesterday, will monitor periodically; CKD mineral bone disorder, on sevelamer 1 tab w/ meals, continue same; Regarding transient AMS, no definitive cause found but possibility of orthostatic changes that were not recorded, especially since BP on lower end lately; we will target SBP in 140's; ID input appreciated, discontinuing abx for UTI since patient asymptomatic;
--- NOTE | 2019-01-22 08:40 | PN ---
DATE: 01/21/2019 SUBJECTIVE: The patient was seen and examined, sitting in chair, seems to be comfortable. Had multiple attack of syncope that could be multifactorial. She recently started on dialysis and she was also found to have a ESBL positive E. coli and UTI and she had right critical stenosis. Her CTA showed classified plaque at the internal carotid with mild degree of stenosis, mild stenosis in the distal left common carotid artery the degree of stenosis less than 50%. PHYSICAL EXAMINATION: GENERAL: She is awake and alert, able to communicate. VITAL SIGNS: She is afebrile, pulse 69, respirations 18, blood pressure 121/71. LUNGS: Bilateral fair airflow. No rhonchi or crackle. HEAT: S1 and S2 audible. ABDOMEN: Soft, nontender. No rebound. No guarding. NEUROLOGICAL: She is awake, alert, able to communicate. LABORATORY DATA: Sodium 129, potassium 4.0, chloride 98, CO2 of 27, BUN 45, creatinine of 0.9, blood sugar of 152. ASSESSMENT: 1. Extended spectrum beta-lactamases positive Escherichia coli, urinary tract infection, could be contamination because the patient is dialysis patient. She does not make much urine. 2. Critical stenosis of right carotid for done CTA shows it is not that critical that needs intervention. 3. End-stage renal disease, on hemodialysis. 4. Hypertension. 5. Hyperlipidemia. 6. Chronic anemia. PLAN: Currently, the patient is on Plavix. We will continue on amlodipine and atorvastatin and carvedilol and she will be discharged today to [facility]. Oral Thao MD
[2019-01-22] MEDS: Insulin Lispro (humaLOG) MEDIUM Coverage SC SCH ×3 (09:04→21:29)
--- NOTE | 2019-01-22 09:26 | CP.PCM.PN ---
Subjective - Date & Time of Evaluation Date of Evaluation: 01/22/19 Time of Evaluation: 09:22 - Subjective Subjective: Podiatry Consult Note: Dr. Schrader 68 year old female patient seen and evaluated, with attending Dr. Schrader, for b/l hallux nail pain with erythema. Patient resting comfortably in bed and in NAD. No additional pedal complaints at this time. Denies nausea/vomiting/fever/chill. Objective - Vital Signs/Intake and Output Vital Signs (last 24 hours): Temp Pulse Resp BP Pulse Ox 98.9 F 71 18 101/43 L 95 01/22/19 06:00 01/22/19 06:00 01/22/19 06:00 01/22/19 06:00 01/22/19 06:00 Intake and Output: 01/22/19 01/22/19 06:59 18:59 Intake Total 600 Balance 600 - Medications Medications: Current Medications Amlodipine Besylate (Norvasc) 10 mg PO DAILY [facility] Last Admin: 01/21/19 10:01 Dose: 10 mg Aspirin (Ecotrin) 81 mg PO DAILY [facility] Last Admin: 01/21/19 10:01 Dose: 81 mg Atorvastatin Calcium (Lipitor) 40 mg PO DAILY [facility] Last Admin: 01/21/19 10:00 Dose: 40 mg Carvedilol (Coreg) 25 mg PO BID [facility] Last Admin: 01/21/19 17:50 Dose: Not Given Clopidogrel Bisulfate (Plavix) 75 mg PO DAILY [facility] Last Admin: 01/21/19 10:00 Dose: 75 mg Hydralazine HCl (Apresoline) 50 mg PO Q8H [facility] Insulin Human Lispro (Humalog Med) 0 units SC [facility]; Protocol Last Admin: 01/22/19 09:04 Dose: Not Given Mupirocin (Bactroban Ointment) 0 gm TOP BID [facility] Last Admin: 01/21/19 17:44 Dose: 1 applic - Labs Labs: 01/20/19 14:00 01/20/19 14:00 PT 12.4 SECONDS (9.4-12.5) 01/17/19 13:05 INR 1.10 01/17/19 13:05 APTT 32.2 Seconds (26.9-38.3) 01/17/19 13:05 - Constitutional Appears: Non-toxic, No Acute Distress - Head Exam Head Exam: ATRAUMATIC, NORMOCEPHALIC - Extremities Exam Additional comments: B/L lower extremity exam Vascular: DP/PT 1/4, CFT < 3 seconds, TG warm to warm, mild edema noted to b/l lower extremities Ortho: Mild tenderness with palpation of medial and lateral hallux nail borders. MMT 5/5 Neuro: Gross sensation intact, protective sensation diminished Derm: Mild erythema noted to distal and medial/lateral aspect of hallux bilaterally, no drainage, no purulence, no clinical signs of infection at this time. - Neurological Exam Neurological Exam: Alert, Awake, Oriented x3 - Psychiatric Exam Psychiatric exam: Normal Affect, Normal Mood Assessment and Plan - Assessment and Plan (Free Text) Assessment: 68 year old female patient with b/l pain and erythema to nails; stable at this time Plan: Patient seen and evaluated [facility] attending, Dr. Schrader Afebrile, absent leukocytosis (01/20/19) No dressing needed at this time to b/l feet - no open wounds noted Stable from podiatry standpoint, no further intervention Podiatry to sign off, please reconsult as needed
[2019-01-22 10:51] LABS: HEMOGLOBIN 10.2 g/dL (12.0-16.0); MEAN CORPUSCULAR HEMOGLOBIN 30.1 pg (25.0-35.0); MEAN CORPUSCULAR HGB CONC 31.7 g/dl (31.0-37.0); MEAN PLATELET VOLUME 10.5 fl (7.0-11.0); RBC 3.39 10^6/uL (3.5-6.1); RED CELL DISTRIBUTION WIDTH 15.2 % (11.5-14.5); WHITE BLOOD COUNT 5.1 10^3/uL (4.5-11.0)
[2019-01-22 11:20] LABS: ALB/GLOB RATIO 0.9 (1.1-1.8); ALBUMIN 2.5 g/dL (3.0-4.8); CALCIUM 7.9 mg/dL (8.4-10.5)
--- NOTE | 2019-01-22 12:37 | CP.PCM.PN ---
Subjective - Date & Time of Evaluation Date of Evaluation: 01/22/19 Time of Evaluation: 12:34 - Subjective Subjective: Nephrology progress note - Camille PGY - 2 Patient seen and examined at bedside. No acute overnight events. Patient denies any complaints right now, states her breathing is fine. Objective - Vital Signs/Intake and Output Vital Signs (last 24 hours): Temp Pulse Resp BP Pulse Ox 98.9 F 71 18 101/43 L 95 01/22/19 06:00 01/22/19 06:00 01/22/19 06:00 01/22/19 06:00 01/22/19 06:00 Intake and Output: 01/22/19 01/22/19 06:59 18:59 Intake Total 600 Balance 600 - Medications Medications: Current Medications Amlodipine Besylate (Norvasc) 10 mg PO DAILY [facility] Last Admin: 01/21/19 10:01 Dose: 10 mg Aspirin (Ecotrin) 81 mg PO DAILY [facility] Last Admin: 01/21/19 10:01 Dose: 81 mg Atorvastatin Calcium (Lipitor) 40 mg PO DAILY [facility] Last Admin: 01/21/19 10:00 Dose: 40 mg Carvedilol (Coreg) 25 mg PO BID [facility] Last Admin: 01/21/19 17:50 Dose: Not Given Clopidogrel Bisulfate (Plavix) 75 mg PO DAILY [facility] Last Admin: 01/21/19 10:00 Dose: 75 mg Hydralazine HCl (Apresoline) 50 mg PO Q8H [facility] Insulin Human Lispro (Humalog Med) 0 units SC [facility]; Protocol Last Admin: 01/22/19 09:04 Dose: Not Given Mupirocin (Bactroban Ointment) 0 gm TOP BID [facility] Last Admin: 01/21/19 17:44 Dose: 1 applic - Labs Labs: 01/22/19 09:10 01/22/19 09:10 PT 12.4 SECONDS (9.4-12.5) 01/17/19 13:05 INR 1.10 01/17/19 13:05 APTT 32.2 Seconds (26.9-38.3) 01/17/19 13:05 - Constitutional Appears: Well - Head Exam Head Exam: ATRAUMATIC, NORMAL INSPECTION, NORMOCEPHALIC - Eye Exam Eye Exam: EOMI, Normal appearance, PERRL Pupil Exam: NORMAL ACCOMODATION, PERRL - ENT Exam ENT Exam: Mucous Membranes Moist, Normal Exam - Neck Exam Neck Exam: Full ROM, Normal Inspection. absent: Lymphadenopathy - Respiratory Exam Respiratory Exam: Clear to Ausculation Bilateral, NORMAL BREATHING PATTERN - Cardiovascular Exam Cardiovascular Exam: REGULAR RHYTHM, +S1, +S2. absent: Murmur - GI/Abdominal Exam GI & Abdominal Exam: Soft, Normal Bowel Sounds. absent: Tenderness - Extremities Exam Extremities Exam: Full ROM, Normal Capillary Refill, Normal Inspection. absent: Joint Swelling, Pedal Edema - Back Exam Back Exam: NORMAL INSPECTION - Neurological Exam Neurological Exam: Alert, Awake, CN II-XII Intact, Normal Gait, Oriented x3 - Psychiatric Exam Psychiatric exam: Normal Affect, Normal Mood - Skin Skin Exam: Dry, Intact, Normal Color, Warm Assessment and Plan - Assessment and Plan (Free Text) Assessment: (1) ESRD on hemodialysis Assessment & Plan: Stable electrolyte status with mild hyponatremia dby. Bilateral LE edema, but lungs are clear. No increased FiO2 requirement - Continue Sevalamer; Torsemide on non-HD days - Advise patient on fluid restriction - HD tomorrow per schedule - Pending AV Fistula placement - Avoid nephrotoxic agents Status: Chronic (2) Hypertensive CKD, ESRD on dialysis Assessment & Plan: Patient doing well on HTN regimen without Clonidine and Cozaar since starting HD. Try to maintain SBP ~140 - Continue Norvasc, Coreg, Hydralazine, with Hydralazine decrease to 50 q8 Status: Chronic (3) Anemia Assessment & Plan: H/H at goal for CKD (10.2 today; goal of 10-11) - Aranesp 60 was dosed on HD dby Status: Chronic (4) Chronic kidney disease-mineral and bone disorder Assessment & Plan: - Sevalamer with meals Status: Chronic (5) Nephrotic syndrome Assessment & Plan: - Continue HD Status: Chronic (6) Hyponatremia Resolved - Monitor; continue with HD Status: Acute
[2019-01-22] MEDS ORDERED: Lidocaine PF 2% (5 ml) Inj (For Cardiac Arrhy) ONE (12:45)
[2019-01-22] MEDS ORDERED: Iodixanol 320 mg/ml 150 ml Bottle IV ONE (12:46)
[2019-01-22] MEDS ORDERED: Iodixanol 320 MG/ML 200 ML BOTTLE IV ONE (12:46)
[2019-01-22] MEDS ORDERED: Nitroglycerin 50mg in D5W 50 MG/250 ML BOTTLE IV ONE (12:46)
[2019-01-22] MEDS ORDERED: Midazolam 2 MG/2 ML VIAL ONE (13:44)
--- NOTE | 2019-01-22 15:13 | VASCULAR ---
PROCEDURE: 1. Arch arteriogram 2. Bilateral internal carotid artery arteriograms 3. Bilateral vertebral arteriogram HISTORY: End-stage renal disease. Recurrent syncopal episodes. Abnormal right ICA waveform on duplex ultrasound. Left vertebral disease. PHYSICIAN(S): Cullen Valverde MD. TECHNIQUE: The relative risks and indications of the procedure were explained to the patient and her daughter and consent obtained. The patient was on Plavix prior to procedure. The patient was placed supine on the arteriogram table and the right groin prepped and draped in usual sterile fashion. Conscious sedation monitoring were provided throughout the procedure by a nurse. Via a right common femoral artery approach, a 5 [place] sheath was placed. Through the sheath and over a guidewire 5 [place] flush catheter was placed in the ascending aorta and an [place]IAN DSA arch arteriogram performed. The catheter was exchanged for a 5 [place] Quin[place] A1 catheter placed in the right vertebral artery origin. Multiple DSA arteriograms of the intra and extracranial vertebral artery was performed. Next the catheter was placed in the right common carotid artery and a DSA right carotid arteriogram consisting of use of the carotid bifurcation and multiple images of the terminal ICA performed. Sub selective images in the right internal carotid artery were performed. The images were degraded by motion. Next the catheter was placed in the left common carotid artery and a DSA left carotid arteriogram consisting of two views of the bifurcation and multiple intracranial views obtained. Finally the catheter was placed the origin of the left vertebral artery and a selective left vertebral arteriogram performed. The sheath was removed hemostasis obtained with a Perclose device. The patient tolerated the procedure. FINDINGS: The arch images are degraded by motion. Some calcification is seen. The great vessels are patent. There is a 40 percent stenosis of the proximal left subclavian artery. The right vertebral artery is dominant. The left vertebral artery is atretic There an eccentric smooth 70-80 percent stenosis of the right ICA origin. The right external carotid artery is hypertrophied. Slow flow is noted throughout the right ICA with mild to moderate disease intracranially. There is a complete occlusion of the terminal right ICA. A 50 percent eccentric stenosis of the distal left common carotid artery is seen. The left carotid bifurcation is widely patent. There is a critical 90+ percent stenosis of the terminal left ICA. This is the predominant supply to the right and left MCA and GERTRUDE distributions. The right vertebral artery is dominant and patent. There is a large right P com artery. The basilar artery is normal in appearance. The left vertebral artery is atretic throughout its course. IMPRESSION: 1. Critical stenosis of the terminal left internal carotid artery. This is the predominant supply to the right and left MCA/GERTRUDE distributions 2. Distal occlusion of the terminal right ICA. 3. Dominant and patent right vertebral artery. A patent right P com artery is present 4. Atretic left vertebral artery.
--- NOTE | 2019-01-22 16:30 | PN ---
DATE: 01/22/2019 SUBJECTIVE: The patient is in bed in no acute distress, nontoxic. No fevers. PHYSICAL EXAMINATION VITAL SIGNS: Temperature is 98, blood pressure is 120/70, respiratory rate is 16. HEENT: Examination of HEENT is unremarkable. NECK: Supple. LUNGS: Have decreased breath sounds. HEART: Normal S1 and S2. ABDOMEN: Soft. LABORATORY DATA: Reveals the patient's white count is 5.1, hemoglobin of 10. Chemistries are noted and urinalysis is noted. Serology is reviewed. Microbiology reveals VRE in the urine and there is E. coli in the urine, before that ESBL. Currently, the patient has no antibiotics. ASSESSMENT AND PLAN: This is a 68-year-old female admitted with systemic inflammatory response syndrome. The patient has asymptomatic urinary tract infection with extended spectrum beta-lactamases, Escherichia coli and vancomycin-resistant enterococci with acute kidney injury on top of chronic kidney injury. The patient seen earlier today in hemodialysis and currently no antibiotic is necessary. The patient has no urinary symptoms, white count is 5.1 and temperature is 98, and asymptomatic for urinary symptoms are concerned. No antibiotics at this time. Nicolas Martin MD
--- NOTE | 2019-01-22 19:36 | PN ---
DATE: 01/22/2019 SUBJECTIVE: The patient is a 68-year-old, seen and examined, awake, alert, oriented, and was getting dialysis. The patient was scheduled to have carotid angiogram done later on after dialysis. PHYSICAL EXAMINATION: GENERAL: This morning; she is awake, alert, oriented, and communicative. VITAL SIGNS: She is afebrile, pulse 65, respirations 18, and blood pressure 123/54. LUNGS: Bilateral fair airflow. No rhonchi or crackle. HEART: S1 and S2 audible. ABDOMEN: Soft, obese, and nontender. No rebound. No guarding. NEUROLOGIC: She is awake, alert, oriented, and able to communicate. LABORATORY DATA: WBC 5.1, hemoglobin 10.2, hematocrit 32, and platelet of 426. Chemistry; sodium 132, potassium 4, chloride 103, CO2 of 27, BUN 29, creatinine 3.6, and blood sugar of 116. Urine was positive for ESBL E. coli UTI and the patient had carotid angiogram that shows critical stenosis of terminal left internal carotid artery that is predominant supply to the right and the left MCA and GERTRUDE distribution, distal occlusion of terminal right ICA dominant and patent right vertebral artery, patent right present. She has atretic left vertebral artery. ASSESSMENT: 1. Status post syncope. 2. Carotid disease, distal internal coronary artery occlusion. 3. End-stage renal disease, on hemodialysis. 4. Hypertension. 5. Hyperlipidemia. PLAN: We will start the patient on antiplatelet therapy including aspirin and Plavix and discussed with Dr. Cullen Valverde. The patient need to be transferred to other institute for possible stent placement and get neurovascular surgeon's evaluation. Oral Thao MD
[2019-01-22] MEDS ORDERED: Hydrocortisone 1% Cream (30 GM) TOP ONE (20:50)
[2019-01-23] MEDS: Insulin Lispro (humaLOG) MEDIUM Coverage SC SCH ×4 (10:00→22:47)
--- NOTE | 2019-01-23 13:24 | CP.PCM.PN ---
Subjective - Date & Time of Evaluation Date of Evaluation: 01/23/19 Time of Evaluation: 13:18 - Subjective Subjective: Nephrology progress note - Camille PGY - 2 Patient seen and examined at bedside. Patient had a cerebrogram yesterday with Dr. Cullen Valverde which showed critical stenoses. Discussion is being held to transfer patient to another facility for possible neurovascular procedures. Objective - Vital Signs/Intake and Output Vital Signs (last 24 hours): Temp Pulse Resp BP Pulse Ox 99.5 F 58 L 18 129/69 97 01/23/19 06:00 01/23/19 09:58 01/23/19 06:00 01/23/19 09:59 01/23/19 06:00 Intake and Output: 01/23/19 01/23/19 06:59 18:59 Intake Total 420 Output Total 0 Balance 420 - Medications Medications: Current Medications Acetaminophen (Tylenol 325mg Tab) 650 mg PO Q6H PRN PRN Reason: Pain, moderate (4-7) Last Admin: 01/22/19 17:22 Dose: 650 mg Amlodipine Besylate (Norvasc) 10 mg PO DAILY [facility] Last Admin: 01/23/19 09:59 Dose: 10 mg Aspirin (Ecotrin) 81 mg PO DAILY [facility] Last Admin: 01/23/19 09:59 Dose: 81 mg Atorvastatin Calcium (Lipitor) 40 mg PO DAILY [facility] Last Admin: 01/23/19 09:58 Dose: 40 mg Carvedilol (Coreg) 25 mg PO BID [facility] Last Admin: 01/23/19 09:58 Dose: 25 mg Clopidogrel Bisulfate (Plavix) 75 mg PO DAILY [facility] Last Admin: 01/23/19 09:59 Dose: 75 mg Hydralazine HCl (Apresoline) 25 mg PO Q8H [facility] Insulin Human Lispro (Humalog Med) 0 units SC [facility]; Protocol Last Admin: 01/23/19 10:00 Dose: 1 unit Mupirocin (Bactroban Ointment) 0 gm TOP BID [facility] Last Admin: 01/21/19 17:44 Dose: 1 applic - Labs Labs: 01/22/19 09:10 01/22/19 09:10 PT 12.4 SECONDS (9.4-12.5) 01/17/19 13:05 INR 1.10 01/17/19 13:05 APTT 32.2 Seconds (26.9-38.3) 01/17/19 13:05 - Constitutional Appears: Well - Head Exam Head Exam: ATRAUMATIC, NORMAL INSPECTION, NORMOCEPHALIC - Eye Exam Eye Exam: EOMI, Normal appearance, PERRL Pupil Exam: NORMAL ACCOMODATION, PERRL - ENT Exam ENT Exam: Mucous Membranes Moist, Normal Exam - Neck Exam Neck Exam: Full ROM, Normal Inspection. absent: Lymphadenopathy - Respiratory Exam Respiratory Exam: Clear to Ausculation Bilateral, NORMAL BREATHING PATTERN - Cardiovascular Exam Cardiovascular Exam: REGULAR RHYTHM, +S1, +S2. absent: Murmur - GI/Abdominal Exam GI & Abdominal Exam: Soft, Normal Bowel Sounds. absent: Tenderness - Extremities Exam Extremities Exam: Full ROM, Normal Capillary Refill, Normal Inspection. absent: Joint Swelling, Pedal Edema - Back Exam Back Exam: NORMAL INSPECTION - Neurological Exam Neurological Exam: Alert, Awake, CN II-XII Intact, Normal Gait, Oriented x3 - Psychiatric Exam Psychiatric exam: Normal Affect, Normal Mood - Skin Skin Exam: Dry, Intact, Normal Color, Warm Assessment and Plan - Assessment and Plan (Free Text) Assessment: Assessment: (1) ESRD on hemodialysis Assessment & Plan: Stable electrolyte status with mild hyponatremia dby. Bilateral LE edema, but lungs are clear. No increased FiO2 requirement - Continue Sevalamer; Torsemide on non-HD days - Advise patient on fluid restriction - HD tomorrow per schedule - Pending AV Fistula placement - Avoid nephrotoxic agents Status: Chronic (2) Hypertensive CKD, ESRD on dialysis Assessment & Plan: Patient doing well on HTN regimen without Clonidine and Cozaar since starting HD. Try to maintain SBP ~140 - Continue Norvasc, Coreg, Hydralazine, with Hydralazine decrease to 50 q8 Status: Chronic (3) Anemia Assessment & Plan: H/H at goal for CKD (10.2 today; goal of 10-11) - Aranesp 60 was dosed on HD dby Status: Chronic (4) Chronic kidney disease-mineral and bone disorder Assessment & Plan: - Sevalamer with meals Status: Chronic (5) Nephrotic syndrome Assessment & Plan: - Continue HD Status: Chronic (6) Hyponatremia Resolved - Monitor; continue with HD Status: Acute
[2019-01-23] MEDS: Mupirocin 2% Ointment 15 GM TUBE TOP SCH ×2 (13:25→21:12)
--- NOTE | 2019-01-23 15:34 | PN ---
DATE: 01/23/2019 SUBJECTIVE: The patient is 68 years old, who came in with near syncope that has happened 3 times prior to coming this time. The patient was recently started on hemodialysis, workup showed right carotid stenosis at the terminal part. The patient had angiography done by Dr. Cullen Valverde yesterday, showed critical stenosis of the terminal left internal carotid artery that is a predominant supply to the right and the left middle cerebral artery, anterior cerebral distribution, distal occlusion of the terminal right ICA and the patent right vertebral artery, patent right PCOM artery is also present. PHYSICAL EXAMINATION: GENERAL: Today, she is awake, alert, oriented, and communicative. VITAL SIGNS: The patient is afebrile, pulse 79, respirations 18, and blood pressure 129/69. LUNGS: Bilateral fair airflow. No rhonchi or crackles. HEART: S1 and S2 audible. ABDOMEN: Soft, obese, nontender. No rebound. No guarding. NEUROLOGIC: The patient is awake and alert, able to communicate. Currently, she is nonfocal. Has generalized weakness. LABORATORY DATA: WBC 5.1, hemoglobin 10, hematocrit 32, and platelets 426. Blood sugar 160. Urine has E. coli. Blood cultures are negative. ASSESSMENT AND PLAN 1. Right internal carotid artery stenosis. 2. Status post multiple syncopes. 3. Hypertension. 4. Hyperlipidemia. 5. End-stage renal disease, on hemodialysis. PLAN: I discussed case with Dr. Osman Morgan, he communicated with neurovascular interventional radiologist, Dr. Prabhakar, awaiting input. The patient might be transferred to will decide according to that about her disposition plan. Oral Thao MD
--- NOTE | 2019-01-23 17:00 | CP.PCM.CON ---
History of Present Illness - History of Present Illness History of Present Illness: [facility] Dr.Farkas Dr.Arcot Dr.Turkell-Parrella Dr.Liff 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 Past Patient History - Infectious Disease Hx of Infectious Diseases: None - Tetanus Immunizations Tetanus Immunization: Unknown - Past Social History Smoking Status: Never Smoked Chewing Tobacco Use: No Cigar Use: No Home Situation {Lives}: With Family - CARDIAC Hx Hypercholesterolemia: Yes Hx Hypertension: Yes - PULMONARY Hx Respiratory Disorders: No Hx Tuberculosis: Yes - NEUROLOGICAL Hx Neurological Disorder: No - HEENT Hx HEENT Problems: No - RENAL Hx Chronic Kidney Disease: Yes Hx Dialysis: Yes (,,Sat) Hx Renal Failure: Yes (ESRD on HD) - ENDOCRINE/METABOLIC Hx Endocrine Disorders: Yes Hx Diabetes Mellitus Type 2: Yes - HEMATOLOGICAL/ONCOLOGICAL Hx Anemia: Yes Hx Cancer: No Hx Shingles: Yes - INTEGUMENTARY Hx Dermatological Problems: No - MUSCULOSKELETAL/RHEUMATOLOGICAL Hx Falls: No - GASTROINTESTINAL Hx Gastrointestinal Disorders: No - GENITOURINARY/GYNECOLOGICAL Hx Genitourinary Disorders: No - PSYCHIATRIC Hx Psychophysiologic Disorder: No - SURGICAL HISTORY Hx Cholecystectomy: Yes Hx Mastectomy: No - ANESTHESIA Hx Anesthesia: Yes Hx Anesthesia Reactions: No Hx Malignant Hyperthermia: No Meds Allergies/Adverse Reactions: Allergies Allergy/AdvReac Type Severity Reaction Status Date / Time No Known Allergies Allergy Verified 12/23/18 11:46 - Medications Medications: Current Medications Acetaminophen (Tylenol 325mg Tab) 650 mg PO Q6H PRN PRN Reason: Pain, moderate (4-7) Last Admin: 01/22/19 17:22 Dose: 650 mg Amlodipine Besylate (Norvasc) 10 mg PO DAILY [facility] Last Admin: 01/23/19 09:59 Dose: 10 mg Aspirin (Ecotrin) 81 mg PO DAILY [facility] Last Admin: 01/23/19 09:59 Dose: 81 mg Atorvastatin Calcium (Lipitor) 40 mg PO DAILY [facility] Last Admin: 01/23/19 09:58 Dose: 40 mg Carvedilol (Coreg) 25 mg PO BID [facility] Last Admin: 01/23/19 09:58 Dose: 25 mg Clopidogrel Bisulfate (Plavix) 75 mg PO DAILY [facility] Last Admin: 01/23/19 09:59 Dose: 75 mg Hydralazine HCl (Apresoline) 25 mg PO Q8H [facility] Insulin Human Lispro (Humalog Med) 0 units SC ACHS [facility]; Protocol Last Admin: 01/23/19 13:25 Dose: Not Given Mupirocin (Bactroban Ointment) 0 gm TOP BID [facility] Last Admin: 01/23/19 13:25 Dose: Not Given Physical Exam - Constitutional Appears: No Acute Distress - Head Exam Head Exam: ATRAUMATIC - Eye Exam Eye Exam: PERRL (ptosis right eye) - Rectal Exam Rectal Exam: Deferred - Neurological Exam Neurological exam: Alert, Oriented x3 - Psychiatric Exam Psychiatric exam: Flat Affect - Skin Skin Exam: Pallor Results - Vital Signs Recent Vital Signs: Last Vital Signs Temp 99.5 F 01/23/19 06:00 Pulse 58 L 01/23/19 09:58 Resp 18 01/23/19 06:00 BP 129/69 01/23/19 09:59 Pulse Ox 97 01/23/19 06:00 - Labs Result Diagrams: 01/22/19 09:10 01/22/19 09:10 Labs: Laboratory Results - last 24 hr 01/22/19 01/23/19 01/23/19 21:22 06:35 11:38 POC Glucose (mg/dL) 145 H 158 H 154 H 01/23/19 16:28 POC Glucose (mg/dL) 160 H Assessment & Plan - Assessment and Plan (Free Text) Assessment: NEUROLOGICAL EXAM: General: awake and sitting in the bed Mental Status: alert and oriented to person, place, and time, follows commands Speech: no dysarthria, speech fluent Motor: 4/5 right upper and lower extremity; 5/5 left upper and lower extremity Cranial Nerves: PERRL, slight right facial droop, ptosis right eye Sensory: intact bilaterally Coordination: [id number] no dysmetria Gait: deferred I have reviewed the angiogram by Dr.Peter Valverde, the angiogram demonstrates that the right internal carotid artery is functionally occluded due to an occlusion of the supraclinoid internal carotid artery and just beyond the opthalmic segment. The left internal carotid artery has a high grade stenosis which is present at the supraclinoid internal carotid artery at the posterior communicating artery level. Left internal carotid artery still remains significant with the degree of flow to the left hemisphere and crossflow to the right hemisphere. There is also a large posterior communicating artery which is probably noted on the right. There is a fair amount of motion artifact however the basic concept is that the patient has a right vertebral artery which is the primary supply to the majority of the cerebral hemisphere, loss of consciousness secondary to interruption or low-flow is quite possibly the cause of syncope here. (Studies reviewed and interpreted by Dr.Jeffrey Prabhakar) Dual antiplatelet's and permissive hypertention would keep the SBP somewhere between 130 and 150mmHg. If the pt has recurrent syncopal events despite this treatment she may a candidate for intracranial stenting of the left supraclinoid internal carotid artery Plan: 1-At this point recommend MRI brain w/o contrast 2-dual antiplatelet's and permissive hypertension 3-maintain SPB somewhere between 130-150mmHg 4-lifestyle modifications 5-high dose statin 6-close follow-up in outpatient clinic with 7-Thank-you for the consult please contact if we can be of further assistance 45 min spent with assessment and plan, discussion with family
--- NOTE | 2019-01-24 00:28 | PN ---
DATE: 01/23/2019 SUBJECTIVE: The patient is in bed in no acute distress, nontoxic. PHYSICAL EXAMINATION: VITAL SIGNS: Temperature is 98, blood pressure is 125/70, respiratory rate of 18. HEENT: Examination of HEENT is unremarkable. NECK: Supple. LUNGS: Have decreased breath sounds. HEART: Normal S1, S2. ABDOMEN: Soft, nontender. LABORATORY DATA: Laboratory examination reveals white count is 5.1, hemoglobin of 10. Chemistries are BUN of 29, creatinine of . Microbiology reveals the blood cultures are negative. E. coli in the urine, VRE in the urine. Review of orders reveals the patient is off of antibiotics. Dr. Thao's note is reviewed. It seems that the patient has a right internal carotid artery stenosis, multiple syncope, hypertension, hyperlipidemia, end-stage renal disease, on hemodialysis. ASSESSMENT/PLAN: A 68-year-old female seen earlier today in 572, bed 1, admitted with systemic inflammatory response syndrome, asymptomatic urinary tract infection with extended-spectrum beta-lactamase Escherichia coli, vancomycin-resistant enterococci, acute kidney injury on top of chronic kidney injury. Currently off of antibiotics, afebrile. The patient is at risk for developing nosocomial infections. Nicolas Martin MD
[2019-01-24] MEDS: Insulin Lispro (humaLOG) MEDIUM Coverage SC SCH ×3 (07:56→17:01)
[2019-01-24 09:16] LABS: CALCIUM 8.1 mg/dL (8.4-10.5)
[2019-01-24 09:41] LABS: HEMOGLOBIN 9.9 g/dL (12.0-16.0); MEAN CELL VOLUME 95.4 fl (80.0-105.0); MEAN CORPUSCULAR HEMOGLOBIN 30.2 pg (25.0-35.0); MEAN CORPUSCULAR HGB CONC 31.6 g/dl (31.0-37.0); MEAN PLATELET VOLUME 9.8 fl (7.0-11.0); RBC 3.28 10^6/uL (3.5-6.1); RED CELL DISTRIBUTION WIDTH 15.3 % (11.5-14.5); WHITE BLOOD COUNT 9.9 10^3/uL (4.5-11.0)
--- NOTE | 2019-01-24 10:02 | PN ---
DATE: 01/24/2019 SUBJECTIVE: The patient is in bed in no acute distress, nontoxic. PHYSICAL EXAMINATION: VITAL SIGNS: Temperature is 99, blood pressure is 130/60, respiratory rate of 18. HEENT: Unremarkable. NECK: Supple. LUNGS: Have decreased breath sounds. HEART: Normal S1, S2. ABDOMEN: Soft. LABORATORY EXAMINATION: Reveals a white count of 5.1, hemoglobin of 10. Chemistries are noted. Creatinine is 3.6. Urinalysis is noted. ASSESSMENT AND PLAN: This is a 68-year-old, who was seen earlier today, admitted with systemic inflammatory response syndrome, asymptomatic urinary tract infection with Escherichia coli vancomycin-resistant enterococci, acute kidney injury on top of chronic kidney injury, currently off of antibiotics, afebrile. The patient is at risk for developing nosocomial infections. Nicolas Martin MD
[2019-01-24] MEDS: Mupirocin 2% Ointment 15 GM TUBE TOP SCH ×2 (13:05→17:00)
--- NOTE | 2019-01-24 17:43 | CP.PCM.PN ---
Subjective - Date & Time of Evaluation Date of Evaluation: 01/24/19 Time of Evaluation: 10:00 - Subjective Subjective: 68 yo F w/ pmh of htn, DM and newly deemed ESRD on HD (secondary to biopsy proven diabetic nephropathy with nephrotic syndrome), admitted with AMS; Seen on HD; denies any dyspnea; no nausea/vomiting; Objective - Vital Signs/Intake and Output Vital Signs (last 24 hours): Temp Pulse Resp BP Pulse Ox 98.0 F 73 18 117/48 L 95 01/24/19 14:00 01/24/19 17:00 01/24/19 14:00 01/24/19 17:00 01/24/19 14:00 Intake and Output: 01/24/19 01/24/19 06:59 18:59 Intake Total 660 260 Balance 660 260 - Medications Medications: Current Medications Acetaminophen (Tylenol 325mg Tab) 650 mg PO Q6H PRN PRN Reason: Pain, moderate (4-7) Last Admin: 01/22/19 17:22 Dose: 650 mg Amlodipine Besylate (Norvasc) 10 mg PO DAILY [facility] Last Admin: 01/24/19 12:25 Dose: 10 mg Aspirin (Ecotrin) 81 mg PO DAILY [facility] Last Admin: 01/24/19 12:25 Dose: 81 mg Atorvastatin Calcium (Lipitor) 40 mg PO DAILY [facility] Last Admin: 01/24/19 12:25 Dose: 40 mg Carvedilol (Coreg) 25 mg PO BID [facility] Last Admin: 01/24/19 17:00 Dose: 25 mg Clopidogrel Bisulfate (Plavix) 75 mg PO DAILY [facility] Last Admin: 01/24/19 12:25 Dose: 75 mg Hydralazine HCl (Apresoline) 25 mg PO Q8H [facility] Last Admin: 01/24/19 16:49 Dose: Not Given Insulin Human Lispro (Humalog Med) 0 units SC [facility]; Protocol Last Admin: 01/24/19 17:01 Dose: 1 unit Mupirocin (Bactroban Ointment) 0 gm TOP BID [facility] Last Admin: 01/24/19 17:00 Dose: 1 applic Ondansetron HCl (Zofran Inj) 4 mg IVP Q6H PRN PRN Reason: Nausea/Vomiting Last Admin: 01/23/19 17:19 Dose: 4 mg - Labs Labs: 01/24/19 08:45 01/24/19 08:45 PT 12.4 SECONDS (9.4-12.5) 01/17/19 13:05 INR 1.10 01/17/19 13:05 APTT 32.2 Seconds (26.9-38.3) 01/17/19 13:05 - Constitutional Appears: Non-toxic, No Acute Distress - Eye Exam Eye Exam: Normal appearance - Respiratory Exam Respiratory Exam: Clear to Ausculation Bilateral. absent: Respiratory Distress - Cardiovascular Exam Cardiovascular Exam: RRR, +S1, +S2 - GI/Abdominal Exam GI & Abdominal Exam: Soft. absent: Distended, Tenderness - Extremities Exam Additional comments: 1+ b/l lower leg edema (much improved); - Neurological Exam Neurological Exam: Alert, Awake - Psychiatric Exam Psychiatric exam: Normal Mood. absent: Agitated - Skin Skin Exam: Warm. absent: Cyanosis Assessment and Plan (1) ESRD on hemodialysis Assessment & Plan: Stable volume and electrolyte status; tolerating 2.5L UF today; next HD for Saturday per routine; Status: Chronic (2) Anemia in CKD (chronic kidney disease) Assessment & Plan: Hgb stable, continuing with aranesp weekly; Status: Acute (3) Hypertensive CKD, ESRD on dialysis Assessment & Plan: BP on lower end of normal; hydralazine dose previously decreased, will d/c altogether; will target SBP between 140-150 given cerebral artery stenoses; Status: Chronic (4) Cerebrovascular disease Assessment & Plan: Awaiting MRI result, f/u with neuro; Status: Acute
[2019-01-25] MEDS: Insulin Lispro (humaLOG) MEDIUM Coverage SC SCH ×4 (07:45→21:11)
[2019-01-25] MEDS: Mupirocin 2% Ointment 15 GM TUBE TOP SCH ×2 (10:11→17:07)
--- NOTE | 2019-01-25 13:42 | MRI ---
Date of service: 01/24/2019 PROCEDURE: MRI BRAIN WITHOUT CONTRAST HISTORY: Syncope COMPARISON: Noncontrast head CT 01/17/2019. TECHNIQUE: Multiplanar, multisequence MR images of the brain were obtained without intravenous contrast enhancement. FINDINGS: HEMORRHAGE: None DWI: There multiple sub cm areas of restricted diffusion affecting the posterior right frontal lobe, right parietal lobe and minimally the medial left frontal vertex compatible with multiple cysts tiny acute or subacute infarcts. No mass effect. No lobar brain infarction appreciable. This pattern suggest embolic etiology even though the majority affect the right MCA distribution alone. No mass effect. BRAIN PARENCHYMA: Diffuse cerebral atrophy chronic microangiopathy are reiterated with posterior fossa contents grossly nonfocal. No extra-axial fluid collection. Midline brain anatomy is unremarkable. VENTRICLES: Unremarkable. No hydrocephalus. CRANIUM: Unremarkable. ORBITS: Grossly unremarkable. PARANASAL SINUSES/MASTOIDS: Clear VASCULAR SYSTEM: Skull base flow voids intact. OTHER FINDINGS: None. IMPRESSION: Scattered tiny acute or subacute infarction identified affecting the right MCA distribution and minimally the left frontal lobe near the vertex and a solitary focus. No mass effect. Exam is otherwise stable with limited age-related neuro degenerative findings reiterated compared to CT 01/17/2019. Message left with answering service for Dr. Thao 01/24/2019 6:15 p.m.. Findings discussed with written down and read back verification with Dr. Abreu 01/25/2019 1:30 p.m..
--- NOTE | 2019-01-25 15:09 | PN ---
DATE: 01/25/2019 SUBJECTIVE: The patient is in bed in no acute distress, nontoxic. PHYSICAL EXAMINATION VITAL SIGNS: Temperature is 98, blood pressure is 120/30, and respiratory rate of 18. HEENT: Unremarkable. NECK: Supple. LUNGS: Have decreased breath sounds. HEART: Normal S1 and S2. ABDOMEN: Soft. LABORATORY EXAMINATION: Reveals a white count of 9.19 and chemistries are noted. Creatinine is 1.6. Urinalysis is noted. Microbiology reveals cultures are noted. Review of orders reveals the patient is off of antibiotics. The patient had an MRI of the brain, the results are pending. ASSESSMENT AND PLAN: This is a 68-year-old female who was seen earlier, initially admitted with systemic inflammatory response syndrome, asymptomatic urinary tract infection with Escherichia coli and vancomycin resistant enterococcus and the patient with acute kidney injury on top of chronic kidney injury. The patient is at risk of developing nosocomial infections. Will check on the MRI of the head results which is pending. Nicolas Martin MD
--- NOTE | 2019-01-25 17:25 | PN ---
DATE: 01/25/2019 SUBJECTIVE: The patient opens her eyes, but does not communicate much and she does not seem to be in distress. PHYSICAL EXAMINATION: VITAL SIGNS: Temperature is 98.4, pulse of 65, blood pressure 115/50, respirations 20, and O2 saturations 95%. GENERAL: The patient is lying in bed, flat, comfortable. HEENT: No oral lesion. Anicteric sclerae. Moist mucosa. NECK: No JVD, adenopathy, or thyromegaly. CARDIOVASCULAR: S1 and S2, regular. No murmurs, rubs, or gallops. LUNGS: Clear to auscultation bilaterally. No wheeze, rales, or rhonchi. ABDOMEN: Bowel sounds are positive, soft, nontender and nondistended. EXTREMITIES: No cyanosis, clubbing or edema. LABORATORY DATA: MRI shows multiple small infarcts in the parietal and frontal lobes bilaterally. I did speak to the radiologist and will need to await a final official report. ASSESSMENT: 1. Cerebrovascular accident. 2. Diabetes type 2. 3. End-stage renal disease, on hemodialysis. 4. Diabetic nephropathy. 5. Anemia secondary to chronic kidney disease. 6. Hypertension. 7. Dyslipidemia. PLAN: The patient is currently on aspirin for her CVA. She is going to continue her carvedilol. She is on Lipitor for dyslipidemia. She is on Norvasc for hypertension. The patient is on Zofran as needed. The patient is on a renal diet. She is being followed by Neurology, ID, and Nephrology. She does have a hemoglobin that is 9.9. Kash Yanez MD
[2019-01-25] MEDS: Sodium Chloride 0.9% 1,000 ML IV SCH (17:43)
--- NOTE | 2019-01-25 21:31 | CP.PCM.PN ---
Subjective - Date & Time of Evaluation Date of Evaluation: 01/25/19 Time of Evaluation: 17:00 - Subjective Subjective: 68 yo F w/ pmh of htn, DM and newly deemed ESRD on HD (secondary to biopsy proven diabetic nephropathy with nephrotic syndrome), admitted with AMS; Denies any complaints as usual; borderline hypotensive today; denies any dizziness/lightheadedness; no dyspnea; reports urinating well; Objective - Vital Signs/Intake and Output Vital Signs (last 24 hours): Temp Pulse Resp BP Pulse Ox 98.1 F 56 L 18 129/46 L 98 01/25/19 14:00 01/25/19 18:50 01/25/19 14:00 01/25/19 18:50 01/25/19 14:00 - Medications Medications: Current Medications Acetaminophen (Tylenol 325mg Tab) 650 mg PO Q6H PRN PRN Reason: Pain, moderate (4-7) Last Admin: 01/22/19 17:22 Dose: 650 mg Amlodipine Besylate (Norvasc) 10 mg PO DAILY [facility] Last Admin: 01/25/19 10:11 Dose: 10 mg Aspirin (Ecotrin) 81 mg PO DAILY [facility] Last Admin: 01/25/19 10:11 Dose: 81 mg Atorvastatin Calcium (Lipitor) 40 mg PO DAILY [facility] Last Admin: 01/25/19 10:11 Dose: 40 mg Carvedilol (Coreg) 12.5 mg PO BID [facility] Last Admin: 01/25/19 17:11 Dose: Not Given Clopidogrel Bisulfate (Plavix) 75 mg PO DAILY [facility] Last Admin: 01/25/19 10:11 Dose: 75 mg Sodium Chloride (Sodium Chloride 0.9%) 1,000 mls @ 75 mls/hr IV .[id number] [facility] Last Admin: 01/25/19 17:43 Dose: 75 mls/hr Insulin Human Lispro (Humalog Med) 0 units SC ACHS [facility]; Protocol Last Admin: 01/25/19 21:11 Dose: Not Given Mupirocin (Bactroban Ointment) 0 gm TOP BID [facility] Last Admin: 01/25/19 17:07 Dose: 1 applic Ondansetron HCl (Zofran Inj) 4 mg IVP Q6H PRN PRN Reason: Nausea/Vomiting Last Admin: 01/23/19 17:19 Dose: 4 mg - Labs Labs: 01/24/19 08:45 01/24/19 08:45 PT 12.4 SECONDS (9.4-12.5) 01/17/19 13:05 INR 1.10 01/17/19 13:05 APTT 32.2 Seconds (26.9-38.3) 01/17/19 13:05 - Constitutional Appears: Non-toxic, No Acute Distress - Eye Exam Eye Exam: Normal appearance - Respiratory Exam Respiratory Exam: Clear to Ausculation Bilateral. absent: Respiratory Distress - Cardiovascular Exam Cardiovascular Exam: RRR, +S1, +S2 - GI/Abdominal Exam GI & Abdominal Exam: Soft. absent: Distended, Tenderness - Extremities Exam Additional comments: mild lower leg edema b/l - Neurological Exam Neurological Exam: Alert, Awake - Psychiatric Exam Psychiatric exam: Normal Mood. absent: Agitated - Skin Skin Exam: Warm. absent: Cyanosis Assessment and Plan (1) ESRD on hemodialysis Assessment & Plan: s/p HD yesterday, relatively stable electrolyte and volume status; -next HD for Saturday per routine; Status: Chronic (2) Anemia in CKD (chronic kidney disease) Assessment & Plan: Hgb just below goal, will re-dose aranesp on next HD (if still here); Status: Acute (3) Hypertensive CKD, ESRD on dialysis Assessment & Plan: BP progressively dropping despite decreasing anti-htn agents; borderline hypot ension today; -stopping hydralazine altogether; decreasing coreg to 12.5 mg bid; holding amlodipine for now; -agree with IVF for now; -obtaining blood/urine cultures/ Status: Chronic (4) Cerebrovascular disease Assessment & Plan: MRI reporting acute/subacute tiny infarcts in R MCA territory that are possibly embolic; awaiting neuro f/u; for now will try to maintain SBP > 140; Status: Acute
--- NOTE | 2019-01-26 08:31 | PN ---
DATE: 01/24/2019 SUBJECTIVE: The patient is 68-year-old, seen and examined while in dialysis, offered no complaints, eating and tolerating. No dizziness, no weakness, no nausea or vomiting, no diarrhea or constipation noted. PHYSICAL EXAMINATION: VITAL SIGNS: She is afebrile, pulse 79, respirations 18, and blood pressure 122/50. LUNGS: Bilateral fair airflow, no rhonchi or crackle. HEART: S1 and S2 audible. ABDOMEN: Soft, obese, nontender. No rebound, no guarding. NEUROLOGIC: She is awake and alert. No confusion noted. She is able to move all extremities. No focal deficits seen. LABORATORY DATA: WBC 9.9, hemoglobin 9.9, hematocrit 31.3, and platelets 467. Chemistry: Sodium 131, potassium 4.5, chloride 99, CO2 of 27, BUN 24, creatinine 4.6, and blood sugar of 131. Urine: She has Enterococcus faecium and ESBL-positive E. coli UTI. ASSESSMENT AND PLAN: Infectious Disease input noted and appreciated. No need for antibiotic. Currently, the patient is asymptomatic. No fever. The patient does have history of left carotid endarterectomy done and she was found to have stenosis in the right internal carotid distal part, had angiogram done and neurovascular intervention is recommended for dual antiplatelet therapy that the patient is already on aspirin and Plavix and arrangement will be made for stent placement next week. Once we figure out that timeframe, we will make disposition and plan. If it is early next week, we can transfer the patient from here to other institute. Otherwise, discharge the patient to [facility] and that arrangement can be made later on. Oral Thao MD
[2019-01-26] MEDS: Insulin Lispro (humaLOG) MEDIUM Coverage SC SCH ×4 (08:58→21:02)
--- NOTE | 2019-01-26 13:50 | CP.PCM.PN ---
Subjective - Date & Time of Evaluation Date of Evaluation: 01/26/19 Time of Evaluation: 13:50 - Subjective Subjective: Nephrology Progress Note: Patient seen and assessed at bedside. No acute events noted overnight. Patient denies any complaints and 12 point ROS unremarkable at this time. Objective - Vital Signs/Intake and Output Vital Signs (last 24 hours): Temp Pulse Resp BP Pulse Ox 98.5 F 69 20 118/51 L 96 01/26/19 06:00 01/26/19 09:57 01/26/19 06:00 01/26/19 09:57 01/26/19 06:00 - Medications Medications: Current Medications Acetaminophen (Tylenol 325mg Tab) 650 mg PO Q6H PRN PRN Reason: Pain, moderate (4-7) Last Admin: 01/22/19 17:22 Dose: 650 mg Amlodipine Besylate (Norvasc) 5 mg PO DAILY [facility] Aspirin (Ecotrin) 81 mg PO DAILY [facility] Last Admin: 01/26/19 09:57 Dose: 81 mg Atorvastatin Calcium (Lipitor) 40 mg PO DAILY [facility] Last Admin: 01/26/19 09:56 Dose: 40 mg Carvedilol (Coreg) 12.5 mg PO BID [facility] Last Admin: 01/26/19 09:57 Dose: 12.5 mg Clopidogrel Bisulfate (Plavix) 75 mg PO DAILY [facility] Last Admin: 01/26/19 09:56 Dose: 75 mg Sodium Chloride (Sodium Chloride 0.9%) 1,000 mls @ 75 mls/hr IV .[id number] [facility] Last Admin: 01/25/19 17:43 Dose: 75 mls/hr Insulin Human Lispro (Humalog Med) 0 units SC [facility]; Protocol Last Admin: 01/26/19 12:13 Dose: Not Given Mupirocin (Bactroban Ointment) 0 gm TOP BID [facility] Last Admin: 01/25/19 17:07 Dose: 1 applic Ondansetron HCl (Zofran Inj) 4 mg IVP Q6H PRN PRN Reason: Nausea/Vomiting Last Admin: 01/23/19 17:19 Dose: 4 mg - Labs Labs: 01/24/19 08:45 01/24/19 08:45 PT 12.4 SECONDS (9.4-12.5) 01/17/19 13:05 INR 1.10 01/17/19 13:05 APTT 32.2 Seconds (26.9-38.3) 01/17/19 13:05 - Constitutional Appears: Non-toxic, No Acute Distress - ENT Exam ENT Exam: Mucous Membranes Moist - Respiratory Exam Respiratory Exam: Clear to Ausculation Bilateral, NORMAL BREATHING PATTERN - Cardiovascular Exam Cardiovascular Exam: REGULAR RHYTHM - GI/Abdominal Exam GI & Abdominal Exam: Soft, Normal Bowel Sounds. absent: Tenderness - Extremities Exam Extremities Exam: Normal Inspection - Neurological Exam Neurological Exam: Alert, Awake, Oriented x3 - Psychiatric Exam Psychiatric exam: Normal Affect, Normal Mood - Skin Skin Exam: Dry, Warm Assessment and Plan - Assessment and Plan (Free Text) Assessment: 68 year old female with a past medical history significant for HTN, DM2, and newly deemed ESRD on HD (secondary to biopsy proven diabetic nephropathy with nephrotic syndrome) who was admitted for AMS. Plan: 1. ESRD on HD -Stable electrolyte and volume status -Next HD tomorrow 2. Anemia in CKD -Will re-dose anaresp with HD tomorrow 3. Hypertensive CKD -Discontinued Hydralazine and holding Norvasc in setting of hypotension -Continue decreased dose of Coreg -Continue IVF -Repeat blood/Urine cultures pending 4. Cerebrovascular Disease -See MRI report -Maintain SBP>140 -Pending CEA/Stenting evaluation Patient seen and case discussed with attending, Dr. Santiago. José Miguel Garcia PGY2
--- NOTE | 2019-01-26 18:06 | PN ---
DATE: 01/26/2019 SUBJECTIVE: The patient is a 68-year-old, seen and examined, sitting in chair, seems to be doing well. No nausea, vomiting. No diarrhea. No chest pain. No shortness of breath. PHYSICAL EXAMINATION VITAL SIGNS: The patient is afebrile, pulse 75, respiration 18, and blood pressure 118/51. LUNGS: Bilateral fair airflow. No rhonchi or crackle. HEART: S1 and S2 audible. ABDOMEN: Soft, obese and nontender. No rebound. No guarding. NEUROLOGIC: She is awake and alert and able to communicate, moves all upper and lower extremities. No focal deficit. LABORATORY DATA: WBC is 9.9, hemoglobin 9.9, hematocrit 31.3, and platelets 467. Chemistry; blood sugar is 136. She had MRI of the brain done that shows scattered tiny acute and subacute infarction identified effecting the right MCA distribution and minimally the left frontal lobe near the vertex and solitary focal, no mass effect. ASSESSMENT: 1. Right internal carotid artery terminal stenosis. 2. End-stage renal disease, on hemodialysis. 3. Hypertension. 4. Hyperlipidemia. 5. Status post left carotid endarterectomy. 6. MRI reveals scattered acute and subacute infarction effecting right middle cerebral artery distribution. PLAN: I will discuss with the Dr. Hamm. Plan is to transfer the patient after arrangement is made for possible intervention to right internal carotid artery stenosis or stent placements, awaiting to hear from Dr. Hamm after arrangement is made to transfer the patient to other institute. The patient will be transferred. Oral Thao MD
[2019-01-26] MEDS: Mupirocin 2% Ointment 15 GM TUBE TOP SCH (18:15)
[2019-01-26] MEDS: Sodium Chloride 0.9% 1,000 ML IV SCH (20:57)
[2019-01-26] MEDS: Nystatin 100,000 Units/gm Topical Pow(15 gm) TOP SCH (21:24)
[2019-01-26] MEDS: Bacitracin Ointment 30 GM TUBE TOP SCH (21:24)
--- NOTE | 2019-01-26 21:26 | PN ---
DATE: 01/26/2019 SUBJECTIVE: The patient is in bed in no acute distress. PHYSICAL EXAMINATION VITAL SIGNS: Temperature is 98, blood pressure is 130/50, respiratory rate of 20. HEENT: Unremarkable. NECK: Supple. CARDIOPULMONARY: Heart, normal S1, S2. LUNGS: Have decreased breath sounds. ABDOMEN: Soft. LABORATORY DATA: Reveals a white count of 9.9, hemoglobin of 9. Chemistries are noted. Urinalysis is noted and serology is reviewed. Microbiology is noted. MEDICATIONS: A review of orders reveals the patient to be off of antibiotics. ASSESSMENT AND PLAN: A 68-year-old female who was seen earlier today and admitted with systemic inflammatory response syndrome, asymptomatic urinary tract infection with Escherichia coli and vancomycin-resistant enterococci. Patient with acute kidney injury on top of chronic kidney injury and high risk of developing nosocomial infections. The patient had an MRI of the of the brain which reveals scattered tiny [id number] infarcts, right middle cerebral artery distribution. We will follow closely with you. Nicolas Martin MD
[2019-01-27 08:04] VITALS: RESP 18
[2019-01-27] MEDS: Insulin Lispro (humaLOG) MEDIUM Coverage SC SCH ×2 (08:10→12:10)
[2019-01-27 08:25] LABS: HEMOGLOBIN 9.6 g/dL (12.0-16.0); MEAN CELL VOLUME 92.6 fl (80.0-105.0); MEAN CORPUSCULAR HEMOGLOBIN 29.4 pg (25.0-35.0); MEAN CORPUSCULAR HGB CONC 31.8 g/dl (31.0-37.0); MEAN PLATELET VOLUME 9.6 fl (7.0-11.0); RBC 3.26 10^6/uL (3.5-6.1); RED CELL DISTRIBUTION WIDTH 14.3 % (11.5-14.5); WHITE BLOOD COUNT 7.6 10^3/uL (4.5-11.0)
[2019-01-27 08:33] LABS: CALCIUM 7.9 mg/dL (8.4-10.5)
[2019-01-27] MEDS ORDERED: Darbepoetin Alfa 60 mcg/ml Inj IVP ONE (09:04)
[2019-01-27] MEDS: Bacitracin Ointment 30 GM TUBE TOP SCH (11:00)
[2019-01-27] MEDS: Nystatin 100,000 Units/gm Topical Pow(15 gm) TOP SCH (11:00)
[2019-01-27] MEDS: Mupirocin 2% Ointment 15 GM TUBE TOP SCH (11:00)
--- NOTE | 2019-01-27 11:09 | CP.PCM.PN ---
Subjective - Date & Time of Evaluation Date of Evaluation: 01/27/19 Time of Evaluation: 11:06 - Subjective Subjective: Nephrology Progress Note: Patient seen and assessed at bedside. No acute events noted overnight. Patient to go for inpatient HD today. Patient denies any complaints and 12 point ROS unremarkable at this time. Objective - Vital Signs/Intake and Output Vital Signs (last 24 hours): Temp Pulse Resp BP Pulse Ox 98.6 F 71 18 131/44 L 94 L 01/27/19 06:00 01/27/19 06:00 01/27/19 06:00 01/27/19 06:00 01/27/19 06:00 Intake and Output: 01/27/19 01/27/19 06:59 18:59 Intake Total 120 Balance 120 - Medications Medications: Current Medications Acetaminophen (Tylenol 325mg Tab) 650 mg PO Q6H PRN PRN Reason: Pain, moderate (4-7) Last Admin: 01/22/19 17:22 Dose: 650 mg Amlodipine Besylate (Norvasc) 5 mg PO DAILY [facility] Aspirin (Ecotrin) 81 mg PO DAILY [facility] Last Admin: 01/26/19 09:57 Dose: 81 mg Atorvastatin Calcium (Lipitor) 40 mg PO DAILY [facility] Last Admin: 01/26/19 09:56 Dose: 40 mg Bacitracin (Bacitracin) 0 gm TOP BID [facility] Last Admin: 01/26/19 21:24 Dose: 1 applic Carvedilol (Coreg) 12.5 mg PO BID [facility] Last Admin: 01/26/19 17:41 Dose: 12.5 mg Clopidogrel Bisulfate (Plavix) 75 mg PO DAILY [facility] Last Admin: 01/26/19 09:56 Dose: 75 mg Insulin Human Lispro (Humalog Med) 0 units SC [facility]; Protocol Last Admin: 01/26/19 21:02 Dose: Not Given Mupirocin (Bactroban Ointment) 0 gm TOP BID [facility] Last Admin: 01/26/19 18:15 Dose: 1 applic Nystatin (Nystop Topical Powder) 0 gm TOP BID [facility] Last Admin: 01/26/19 21:24 Dose: 1 applic Ondansetron HCl (Zofran Inj) 4 mg IVP Q6H PRN PRN Reason: Nausea/Vomiting Last Admin: 01/23/19 17:19 Dose: 4 mg - Labs Labs: 01/27/19 08:00 01/27/19 08:00 PT 12.4 SECONDS (9.4-12.5) 01/17/19 13:05 INR 1.10 01/17/19 13:05 APTT 32.2 Seconds (26.9-38.3) 01/17/19 13:05 - Constitutional Appears: Non-toxic, No Acute Distress - Head Exam Head Exam: ATRAUMATIC, NORMOCEPHALIC - Eye Exam Eye Exam: EOMI - ENT Exam ENT Exam: Mucous Membranes Moist - Neck Exam Neck Exam: Full ROM - Respiratory Exam Respiratory Exam: Clear to Ausculation Bilateral, NORMAL BREATHING PATTERN. absent: Wheezes - Cardiovascular Exam Cardiovascular Exam: REGULAR RHYTHM, RRR - GI/Abdominal Exam GI & Abdominal Exam: Soft, Normal Bowel Sounds. absent: Tenderness - Extremities Exam Extremities Exam: absent: Pedal Edema - Neurological Exam Neurological Exam: Alert, Awake, Oriented x3 - Psychiatric Exam Psychiatric exam: Normal Affect, Normal Mood - Skin Skin Exam: Dry, Warm Assessment and Plan - Assessment and Plan (Free Text) Assessment: 68 year old female with a past medical history significant for HTN, DM2, and newly deemed ESRD on HD (secondary to biopsy proven diabetic nephropathy with nephrotic syndrome) who was admitted for AMS. Plan: 1. ESRD on HD -S/P HD with 1.5L UF; Stable electrolyte and volume status -Avoid nephrotoxic agents and renally dose medications as indicated 2. Anemia in CKD -Will re-dose anaresp with HD today 3. Hypertensive CKD -Discontinued Hydralazine and holding Norvasc in setting of hypotension -Continue decreased dose of Coreg -Continue IVF -Repeat blood cultures negative -Repeat urine cultures pending 4. Cerebrovascular Disease -See MRI report -Maintain SBP>140 -Further management as per Neurology Patient seen and case discussed with attending, Dr. Santiago. José Miguel Garcia PGY2
--- NOTE | 2019-01-27 11:47 | CP.PCM.PN ---
Subjective - Date & Time of Evaluation Date of Evaluation: 01/27/19 Time of Evaluation: 08:00 - Subjective Subjective: Neurology Progress note for Dr. Becker Patient seen and evaluated bedside. no acute issues overnight. Patient denies any chest pain, SOB, headache, weakness or any other complaints at this time. Objective - Vital Signs/Intake and Output Vital Signs (last 24 hours): Temp Pulse Resp BP Pulse Ox 98.6 F 71 18 131/44 L 94 L 01/27/19 06:00 01/27/19 06:00 01/27/19 06:00 01/27/19 06:00 01/27/19 06:00 Intake and Output: 01/27/19 01/27/19 06:59 18:59 Intake Total 120 Balance 120 - Medications Medications: Current Medications Acetaminophen (Tylenol 325mg Tab) 650 mg PO Q6H PRN PRN Reason: Pain, moderate (4-7) Last Admin: 01/22/19 17:22 Dose: 650 mg Amlodipine Besylate (Norvasc) 5 mg PO DAILY [facility] Aspirin (Ecotrin) 81 mg PO DAILY [facility] Last Admin: 01/26/19 09:57 Dose: 81 mg Atorvastatin Calcium (Lipitor) 40 mg PO DAILY [facility] Last Admin: 01/26/19 09:56 Dose: 40 mg Bacitracin (Bacitracin) 0 gm TOP BID [facility] Last Admin: 01/26/19 21:24 Dose: 1 applic Carvedilol (Coreg) 12.5 mg PO BID [facility] Last Admin: 01/26/19 17:41 Dose: 12.5 mg Clopidogrel Bisulfate (Plavix) 75 mg PO DAILY [facility] Last Admin: 01/26/19 09:56 Dose: 75 mg Insulin Human Lispro (Humalog Med) 0 units SC [facility]; Protocol Last Admin: 01/26/19 21:02 Dose: Not Given Mupirocin (Bactroban Ointment) 0 gm TOP BID [facility] Last Admin: 01/26/19 18:15 Dose: 1 applic Nystatin (Nystop Topical Powder) 0 gm TOP BID [facility] Last Admin: 01/26/19 21:24 Dose: 1 applic Ondansetron HCl (Zofran Inj) 4 mg IVP Q6H PRN PRN Reason: Nausea/Vomiting Last Admin: 01/23/19 17:19 Dose: 4 mg - Labs Labs: 01/27/19 08:00 01/27/19 08:00 PT 12.4 SECONDS (9.4-12.5) 01/17/19 13:05 INR 1.10 01/17/19 13:05 APTT 32.2 Seconds (26.9-38.3) 01/17/19 13:05 - Constitutional Appears: Non-toxic, No Acute Distress - Head Exam Head Exam: ATRAUMATIC, NORMOCEPHALIC - Eye Exam Eye Exam: Normal appearance - Respiratory Exam Respiratory Exam: Clear to Ausculation Bilateral, NORMAL BREATHING PATTERN - Cardiovascular Exam Cardiovascular Exam: REGULAR RHYTHM, +S1, +S2 - GI/Abdominal Exam GI & Abdominal Exam: Soft - Extremities Exam Extremities Exam: Pedal Edema - Neurological Exam Neurological Exam: Alert, Awake, CN II-XII Intact, Oriented x3 Neuro motor strength exam: Left Upper Extremity: 4, Right Upper Extremity: 4, Left Lower Extremity: 4, Right Lower Extremity: 4 Assessment and Plan - Assessment and Plan (Free Text) Plan: Encephalopathy/AMS -currently resolved -patient will remain on dual antiplatelet therapy -follow up with Dr. Prabhakar as an outpatient for possible intracranial steering if symptoms reoccur
--- NOTE | 2019-01-27 12:39 | CP.PCM.PN ---
Subjective - Date & Time of Evaluation Date of Evaluation: 01/27/19 Time of Evaluation: 11:35 - Subjective Subjective: [facility] is a 68 year old female with PmHx HTN,HLD,DM,ESRD on HD who had a possible syncopal episode after HD on 01/17/19 witnessed by grand-daughter, EMS called ([facility] [phone] per family) pt was unresponsive until in the ambulance on the way to ED. Objective - Vital Signs/Intake and Output Vital Signs (last 24 hours): Temp Pulse Resp BP Pulse Ox 98.6 F 71 18 131/44 L 94 L 01/27/19 06:00 01/27/19 06:00 01/27/19 06:00 01/27/19 06:00 01/27/19 06:00 Intake and Output: 01/27/19 01/27/19 06:59 18:59 Intake Total 120 Balance 120 - Medications Medications: Current Medications Acetaminophen (Tylenol 325mg Tab) 650 mg PO Q6H PRN PRN Reason: Pain, moderate (4-7) Last Admin: 01/22/19 17:22 Dose: 650 mg Amlodipine Besylate (Norvasc) 5 mg PO DAILY [facility] Aspirin (Ecotrin) 81 mg PO DAILY [facility] Last Admin: 01/27/19 11:00 Dose: Not Given Atorvastatin Calcium (Lipitor) 40 mg PO DAILY [facility] Last Admin: 01/26/19 09:56 Dose: 40 mg Bacitracin (Bacitracin) 0 gm TOP BID [facility] Last Admin: 01/27/19 11:00 Dose: Not Given Carvedilol (Coreg) 12.5 mg PO BID [facility] Last Admin: 01/27/19 11:00 Dose: Not Given Clopidogrel Bisulfate (Plavix) 75 mg PO DAILY [facility] Last Admin: 01/26/19 09:56 Dose: 75 mg Insulin Human Lispro (Humalog Med) 0 units SC [facility]; Protocol Last Admin: 01/27/19 08:10 Dose: Not Given Mupirocin (Bactroban Ointment) 0 gm TOP BID [facility] Last Admin: 01/27/19 11:00 Dose: Not Given Nystatin (Nystop Topical Powder) 0 gm TOP BID [facility] Last Admin: 01/26/19 21:24 Dose: 1 applic Ondansetron HCl (Zofran Inj) 4 mg IVP Q6H PRN PRN Reason: Nausea/Vomiting Last Admin: 01/23/19 17:19 Dose: 4 mg - Labs Labs: 01/27/19 08:00 01/27/19 08:00 PT 12.4 SECONDS (9.4-12.5) 01/17/19 13:05 INR 1.10 01/17/19 13:05 APTT 32.2 Seconds (26.9-38.3) 01/17/19 13:05 - Constitutional Appears: Chronically Ill - Head Exam Head Exam: NORMAL INSPECTION - Eye Exam Eye Exam: EOMI, PERRL - Respiratory Exam Respiratory Exam: NORMAL BREATHING PATTERN - Rectal Exam Rectal Exam: Deferred - Neurological Exam Neurological Exam: Alert, Awake, Oriented x3 Neuro motor strength exam: Left Upper Extremity: 5, Right Upper Extremity: 4, Left Lower Extremity: 5, Right Lower Extremity: 4 - Psychiatric Exam Psychiatric exam: Agitated Additional comments: Pt stated she was tired and did not want to bothered s/p HD - Skin Skin Exam: Pallor Assessment and Plan - Assessment and Plan (Free Text) Assessment: NEUROLOGICAL EXAM: General: awake and sitting OOB in chair Mental Status: alert and oriented to person, place, and time, follows commands Speech: no dysarthria, speech fluent Motor: 4/5 right upper and lower extremity; 5/5 left upper and lower extremity Cranial Nerves: PERRL, mild ptosis right eye Sensory: intact bilaterally Coordination: [id number] no dysmetria Gait: deferred MRI sdubacute infarction right MCA distribution and minimal Dual antiplatelet's and permissive hypertention would keep the SBP somewhere between 130 and 150mmHg. If the pt has recurrent syncopal events despite this treatment she may a candidate for intracranial stenting of the left supraclinoid internal carotid artery Plan: 1-dual antiplatelet's 3-maintain SPB somewhere between 130-150mmHg 4-lifestyle modifications 5-high dose statin 6-close follow-up in outpatient clinic with 7-Thank-you for the consult please contact if we can be of further assistance 35 min spent with assessment and plan, discussion with family
[2019-01-27 14:31] VITALS: BP 167/58; PULSE 76; TEMP 97.4; O2SAT 95
[2019-01-27] MEDS ORDERED: Pneumococcal 23-Valent Vaccine IM ONE (15:49)
--- NOTE | 2019-01-27 20:59 | DS ---
HISTORY OF PRESENT ILLNESS: The patient is 68 years old, who came to emergency room on 01/17/2019 with an episode of syncope. Her family was unable to arouse her, so they called ambulance, she was brought to emergency room. PAST MEDICAL HISTORY: The patient has a history of; 1. Hypertension. 2. Noninsulin-dependent diabetes. 3. End-stage renal disease, on hemodialysis. 4. Hyperlipidemia. ALLERGIES: SHE IS NOT ALLERGIC TO ANY MEDICATION. MEDICATIONS: At home; as per MAR. PHYSICAL EXAMINATION: GENERAL: She is awake, alert, oriented, and getting dialysis. No focal deficits. VITAL SIGNS: She is afebrile, pulse 71, respirations 18, and blood pressure 131/44. LUNGS: Bilateral fair airflow. No rhonchi or crackle. HEART: S1 and S2 audible. ABDOMEN: Soft and nontender. No rebound. No guarding. NEUROLOGIC: The patient is awake and alert; able to communicate. No focal deficits. LABORATORY DATA: WBC 7.6, hemoglobin 9.6, hematocrit 30.2, and platelets 469. Chemistry; sodium 131, potassium 3.7, chloride 100, CO2 of 26, BUN 40, creatinine 5.2, and blood sugar of 99. HOSPITAL COURSE: The patient was admitted on 01/17/2019, she underwent an EEG that was unremarkable. She had carotid Doppler done that shows right internal carotid severe stenosis. Dr. Cullen Valverde was consulted, who recommended CTA that also confirmed the diagnosis of right internal carotid stenosis, although she has left carotid endarterectomy done already. So Dr. Cullen Valverde did angiogram that shows that she has critical stenosis of terminal left internal carotid artery, predominant supply to the right and left MCA and GERTRUDE distribution, and distal occlusion of terminal right ICA dominant and patent right vertebral artery, and patent right posterior communicating artery. So Dr. Prabhakar, who is new vascular carpet loom fixer was consulted, who recommends that the patient should be on double antiplatelet therapy and that is aspirin and Plavix and if the patient had any further symptoms, then he will consider intervention or possibly stenting. So at this point, he is confident enough and reassured me that we should watch her on aspirin and Plavix treatment and if there is any further episode, the intervention will be de indicated. Since risks outweigh the benefits at this point, the patient will be transferred to [facility] where she will receive hemodialysis, and she will be discharged on aspirin and Plavix and she will receive physical therapy in [facility]. Oral Thao MD
--- NOTE | 2019-01-27 23:09 | CP.PCM.PN ---
Subjective - Date & Time of Evaluation Date of Evaluation: 01/24/19 Time of Evaluation: 13:30 - Subjective Subjective: Asked to follow up Mrs Carol Stern by Dr. Cullen Yang on behalf of Dr. Palacios Mrs. Stern is well known to our service, with neurology consult done by Dr. Becker on January 20. She is a woman who has the following history on initial consult on 01/20/19: 68-year-old woman with a past medical history of HTN, HLD, ESRD on HD, who went home today after dialysis and was found later by her grand daughter to be unresponsive. Despite the patient's family trying to wake her up, she was not opening eyes and was not following any commands. Her family checked her glucose, and it was over 100. She was brought to the ED, and she regained consciousness and is now at her baseline. There was some abnormal shaking movement noted on the left side an the family admitted that they notice her having these shaking movements/spasms sometimes. There was a slight right facial droop that the family states is normal for her. CT scan of the head did not show any acute findings. MRI Brain was subsequently done and showed that she did not have a stroke. CTA head and neck was done and showed that she has multiple occlusions, ICA, and vertebral arteries. These occlusions were chronic and significant. Today, Dr. Palacios requests that Dr. Omalley be consulted to review the CTA and determine if there is a scope for intervention. Dr. Lyssa Saha's nurse saw the pateint on our request and determined that she may be an interventional candidate if there is no improvement with medical management. ON exam today, the pateint is quite lethargic but follows 2 step commands. ROS: not accurate due to her level of consciuosness. On exam: Lethargic but easily arouseable. SPeech is slow but fluent. Mild dysarthria. She can name and repeat. EOMI. PERRL. Follows 2 step commands. Generalized weakness. Sensory exam is not accurate. Gait is not tested. SHe has drift bilaterally. +1 dtr ul and ll bl. Toes downgoing. No clonus. Objective - Vital Signs/Intake and Output Vital Signs (last 24 hours): Temp Pulse Resp BP Pulse Ox 97.4 F L 76 18 167/58 H 95 01/27/19 14:00 01/27/19 14:00 01/27/19 14:00 01/27/19 14:00 01/27/19 14:00 Intake and Output: 01/27/19 01/28/19 18:59 06:59 Intake Total 320 Balance 320 - Labs Labs: 01/27/19 08:00 01/27/19 08:00 PT 12.4 SECONDS (9.4-12.5) 01/17/19 13:05 INR 1.10 01/17/19 13:05 APTT 32.2 Seconds (26.9-38.3) 01/17/19 13:05 Assessment and Plan - Assessment and Plan (Free Text) Assessment: 68 yr old woman with multiple risk factors for stroke. She is quite lethargic, but this appears to be part of her baseilne. HOwever, we will order MRI Brain to rule out stroke. This plan was discussed both with Dr. yang on Saturday at about 5 pm and he will relay message to Dr. Palacios. A/p: TOxic metabolic encephalopathy, with possible newer/subacute strokes. PLan; 1. Continue aspirin and plavix. 2. Appreciate endovascular consult. We will follow patient. Thank you Dr. Trujillo [facility]
--- NOTE | 2019-01-27 23:21 | CP.PCM.PN ---
Subjective - Date & Time of Evaluation Date of Evaluation: 01/25/19 Time of Evaluation: 16:00 ( ) - Subjective Subjective: Events noted. MRI Brain reviewed and noted that there are multiple subacute infarcts noted in the right frontal and left medial cortex. There is no mass effect. Of note, the last MRI was performed on 12/20 and showed no infarction and most recent CT head earlier this week was normal. The patients neurological exam has not changed since last visit, but she is a bit more confused. The exact timing of these strokes are unknown and could be 1-2 weeks old, but at this point we have consulted endovascular and are awaiting their de cision to stent. They are following as well. Today, her neurological status is unchanged. When i saw her, she was with family, and easily arouseable and speaking slowly in Indonesian. I spoke to them about possible procedure with the help of instructor bridge, in Indonesian, and they were agreeable. They did not notice any change in her mentation. ROS: not obtainable due to patients mental status. On exam: Lethargic but easily arouseable. SPeech is slow but fluent. Mild dysarthria. She can name and repeat. EOMI. PERRL. Follows 2 step commands. Generalized weakness. Sensory exam is not accurate. Gait is not tested. SHe has drift bilaterally. +1 dtr ul and ll bl. Toes downgoing. No clonus. Objective - Vital Signs/Intake and Output Vital Signs (last 24 hours): Temp Pulse Resp BP Pulse Ox 97.4 F L 76 18 167/58 H 95 01/27/19 14:00 01/27/19 14:00 01/27/19 14:00 01/27/19 14:00 01/27/19 14:00 Intake and Output: 01/27/19 01/28/19 18:59 06:59 Intake Total 320 Balance 320 - Labs Labs: 01/27/19 08:00 01/27/19 08:00 PT 12.4 SECONDS (9.4-12.5) 01/17/19 13:05 INR 1.10 01/17/19 13:05 APTT 32.2 Seconds (26.9-38.3) 01/17/19 13:05 Assessment and Plan - Assessment and Plan (Free Text) Assessment: CT angio as performed by DR. Valverde: Angiogram demonstrates that the right internal carotid artery is functionally occluded due to an occlusion of the supraclinoid internal carotid artery and just beyond the opthalmic segment. The left internal carotid artery has a high grade stenosis which is present at the supraclinoid internal carotid artery at the posterior communicating artery level. Left internal carotid artery still remains significant with the degree of flow to the left hemisphere and crossflow to the right hemisphere. There is also a large posterior communicating artery which is probably noted on the right. There is a fair amount of motion artifact however the basic concept is that the patient has a right vertebral artery which is the primary supply to the majority of the cerebral hemisphere, loss of consciousness secondary to interruption or low-flow is quite possibly the cause of syncope here. (Studies reviewed and interpreted by Dr.Jeffrey Prabhakar) MRI Brain: shows multiple subacute small strokes in the right parietal/right vertex and left frontal vertex regions. A/p: 68 yr old woman with significant Rt. ICA stenosis due to occlusion of supraclinoid ICA and high grade Left ICA stenosis as well, leading to small embolic strokes that may have been etiology of her syncopal spells. At present, she is stable and awaiting possible stent. I spoke to Dr. Omalley today and his plan was to observe and decide if she should be stented based on further symptomatology. This conversation was related to Dr. Palacios as well who decided to keep pateint in house for stent and then, if no stent, send to rehab facility. In addition, this plan was also related to Dr. Osman Morgan who was consulted by Dr. Palacios and floor nurses about plan for patient. Plan: 1. IV fluids 2. Continue aspirin and plavix 3. Rehab/ stent. THank you DR. Trujillo, Neurology
--- NOTE | 2019-01-27 23:35 | CP.PCM.PCO ---
Physician Communication Note - Physician Communication Note Physician Communication Note: Conversation with Dr. Palacios on 01/26/19
--- NOTE | 2019-01-28 01:23 | PN ---
DATE: 01/27/2019 SUBJECTIVE: The patient is in bed in no acute distress, nontoxic. The patient is seen early this morning in room 572, bed 1. PHYSICAL EXAMINATION VITAL SIGNS: Temperature is 97, blood pressure is 160/70, respiratory rate of 16. HEENT: Unremarkable. NECK: Supple. LUNGS: Have decreased breath sounds. HEART: Normal S1 and S2. ABDOMEN: Soft. LABORATORY DATA: Reveals a white count of 7.6, hemoglobin of 9. Urinalysis is noted. Serology is noted. Microbiology is reviewed. ASSESSMENT AND PLAN: A 68-year-old female who was seen earlier today with systemic inflammatory response syndrome, asymptomatic urinary tract infection, Escherichia coli and vancomycin-resistant Enterococci with acute kidney injury on top of chronic kidney injury and a high risk of developing nosocomial infections. Case was discussed with Dr. Thao at length earlier today. Nicolas Martin MD
== END 2019-01-27 17:50 | DRG 67 ==
LOC: ED 11:50 → ERH 15:37 → 2RNO 17:07 → 5RSO 01-20 20:16 → 2RSO 01-22 15:21 → 5RSO 01-22 23:02
PROVIDERS: ADMIT Internal Medicine; ATTEND Internal Medicine
PROC: 0HBRXZZ Excision of Toe Nail, External Approach (ICD-10-PCS; principal; 2019-01-20)
PROC: B31 Imaging, Upper Arteries, Fluoroscopy (ICD-10-PCS; 2019-01-22)
PROC: B31 Imaging, Upper Arteries, Fluoroscopy (ICD-10-PCS; 2019-01-22)
PROC: B31 Imaging, Upper Arteries, Fluoroscopy (ICD-10-PCS; 2019-01-22)
DX: I65.22 Occlusion and stenosis of left carotid artery (principal); N18.6 End stage renal disease; I63.411 Cerebral infarction due to embolism of right middle cerebral artery; G92 Toxic encephalopathy; N39.0 Urinary tract infection, site not specified; I12.0 Hypertensive chronic kidney disease with stage 5 chronic kidney disease or end stage renal disease; E87.1 Hypo-osmolality and hyponatremia; N17.9 Acute kidney failure, unspecified; Z99.2 Dependence on renal dialysis; E11.22 Type 2 diabetes mellitus with diabetic chronic kidney disease; F17.200 Nicotine dependence, unspecified, uncomplicated; D64.9 Anemia, unspecified; B96.20 Unspecified Escherichia coli [E. coli] as the cause of diseases classified elsewhere; E78.00 Pure hypercholesterolemia, unspecified; E78.5 Hyperlipidemia, unspecified; Z79.4 Long term (current) use of insulin; Z16.12 Extended spectrum beta lactamase (ESBL) resistance; K52.9 Noninfective gastroenteritis and colitis, unspecified; E11.21 Type 2 diabetes mellitus with diabetic nephropathy; D63.1 Anemia in chronic kidney disease; M89.9 Disorder of bone, unspecified; B95.2 Enterococcus as the cause of diseases classified elsewhere; E11.649 Type 2 diabetes mellitus with hypoglycemia without coma; E87.6 Hypokalemia; K76.0 Fatty (change of) liver, not elsewhere classified; Z16.21 Resistance to vancomycin; Z79.02 Long term (current) use of antithrombotics/antiplatelets; Z79.82 Long term (current) use of aspirin; Z79.899 Other long term (current) drug therapy; Z83.3 Family history of diabetes mellitus; Z86.11 Personal history of tuberculosis; Z90.49 Acquired absence of other specified parts of digestive tract